=== PATIENT | female | born 1985 | race Caucasian/White ===

== ENCOUNTER 2017-10-24 10:09 | Emergency (ER) | payer MEDICAID, SELFPAY ==
[2017-10-24 10:19] VITALS: BP 117/67; PULSE 74; RESP 16; TEMP 36.9; O2SAT 99
[2017-10-24] MEDS: Amoxicillin 875/Clav. 125 TAB PO (10:41)
--- NOTE | 2017-10-24 10:43 | ED.GENADUL_ITS ---
Disposition Clinical Impression: Otitis media of left ear with spontaneous rupture of tympanic membrane Disposition: HOME Instructions: Otitis Media (ED) Additional Instructions: Please take antibiotic as prescribed. Please take ibuprofen 600 mg by mouth every 6-8 hours as needed for pain for the next few days. Please follow-up with your primary care physician and Ear, Nose and Throat. Return to the emergency department immediately for any worsening or new concerning symptoms. Prescriptions: Amoxicillin 875/Clav. 125 [Augmentin 875-125 Tablet] 1 each PO BID #19 tab Referrals: Mary Jo MD [Primary Care Provider] - Hank Borrego MD [ [facility] STAFF PHYSICIAN] - Medical Decision Making - Medical Decision Making 32-year-old female here with left otitis media with suspected perforation. Plan to treat with Augmentin. Patient has allergy to Keflex listed and she notes that she is not actually allergic to Keflex and has tolerated it well. Advised patient to follow-up with ear nose and throat. History of Present Illness - General Chief complaint: EarProblem Stated complaint: UNKNOWN Time Seen by Provider: 10/24/17 10:19 Source: patient, RN notes reviewed Mode of arrival: ambulatory Limitations: no limitations - History of Present Illness Initial comments: 32-year-old female presents with chief complaint of ear pain. Pain is localized to the left ear. Patient notes that she had about a week of ear pressure and discomfort. There is in a brief period of improvement and then subsequently over the past 5 days she has had increasing pain and also ear discharge. Discharge is brown. She has some associated itching in the ear. Pain is now moderate. Persistent. No associated fever or sore throat. Patient has been swimming intermittently the summer and [place]. - Related Data Promethazine HCl 25 mg PO Q8H PRN #30 tab 12/14/16 Ibuprofen [Ibuprofen Ib] 800 mg PO PRN PRN 04/21/17 Trazodone HCl 50 - 100 mg PO HS #60 tab-cap 08/28/17 Sertraline HCl 50 mg PO DAILY #90 tab-cap 10/02/17 Amoxicillin 875/Clav. 125 [Augmentin 875-125 Tablet] 1 each PO BID #19 tab 10/24 Allergies Allergy/AdvReac Type Severity Reaction Status Date / Time vancomycin Allergy Severe diarrhea, Unverified 10/02/17 16:01 redness cephalexin [Cephalexin] AdvReac Severe Abdominal Unverified 10/02/17 16:01 Cramps sulfamethoxazole AdvReac Severe Nausea and Unverified 10/02/17 16:01 [From Bactrim] vomiting trimethoprim [From Bactrim] AdvReac Severe Nausea and Unverified 10/02/17 16:01 vomiting Cephalosporins AdvReac Intermediate Diarrhea Unverified 10/02/17 16:01 codeine phosphate AdvReac Intermediate Vomiting Unverified 10/02/17 16:01 [From Tylenol-Codeine #3] ketorolac AdvReac Intermediate Cramping/vo Unverified 10/02/17 16:01 mitting oxycodone AdvReac Intermediate Nausea/vomi Unverified 10/02/17 16:01 tting tramadol AdvReac Unverified 10/02/17 16:01 Review of Systems Constitutional: denies: chills, fever ENT: ear pain (left). 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 Absent: conjunctival injection, periorbital swelling - ENT ENT exam: Present: normal orophraynx, mucous membranes moist, other (Right TM normal; left TM bulging, erythematous, question small healing perforation, external ear normal) - Neck Neck exam: Absent: lymphadenopathy - Respiratory Respiratory exam: Absent: respiratory distress - Neurological Exam Neurological exam: Present: alert. Absent: altered - Skin Skin exam: Present: warm, dry, intact Course Vital Signs - 24 hr 10/24/17 10:19 Temperature 36.9 C Pulse 74 Respiratory 16 Rate Blood Pressure 117/67 Pulse Oximetry 99
== END 2017-10-24 10:54 | disposition home or self-care (01) ==
PROVIDERS: Emergency Provider Student in an Organized Health Care Education/Training Program; PCP Internal Medicine
DX: H66.92 Otitis media, unspecified, left ear (principal); H72.02 Central perforation of tympanic membrane, left ear
CPT/HCPCS: 99283

== ENCOUNTER 2017-10-28 17:59 | Emergency (ER) | payer MEDICAID, SELFPAY ==
[2017-10-28 18:22] VITALS: BP 123/75; PULSE 74; RESP 16; TEMP 36.6; O2SAT 98
--- NOTE | 2017-10-28 19:00 | DI.RPTCT_ITS ---
SYMPTOMS/DIAGNOSIS: CONCERN FOR MASTOIDITIS MAXILLOFACIAL CT: The sinuses and mastoid air cells are clear throughout. There is soft tissue thickening of the external auditory canal to the level of the tympanic membrane. A small amount of soft tissue thickening is seen along the lateral margin of the left middle ear and Prussak's space. No bony erosion is seen. IMPRESSION: Left external otitis. A small amount of soft tissue thickening is seen of Prussak's space and along the lateral margin of the left middle ear ossicles and tympanic membrane.
--- NOTE | 2017-10-28 19:03 | ED.GENADUL_ITS ---
Disposition Clinical Impression: Otitis externa Disposition: HOME Condition: Fair Instructions: Otitis Externa (ED) Additional Instructions: Encourage hydration. Tylenol and/or ibuprofen as needed for discomfort. Continue with Augmentin. Take Ciprodex as prescribed. Even if symptoms are improving please take the entire course. Keep appointment with primary care on Monday for reevaluation. Please ensure follow-up with ENT. If you develop fevers, increased pain, spreading of pain, visual changes, neck pain or other new/worsening symptoms please seek care urgently once again. Referrals: Mary Jo MD [Primary Care Provider] - Medical Decision Making - Lab Data Laboratory Tests 10/28/17 10/28/17 19:20 19:20 WBC 10.37 RBC 4.34 Hgb 14.3 Hct 41.4 MCV 95.4 H MCH 32.9 MCHC 34.5 RDW 12.2 Plt Count 185 MPV 10.7 Immature Gran % 0.4 Neutrophils % 66.0 Lymphocytes % 23.2 Monocytes % 8.2 Eosinophils % 1.7 Basophils % 0.5 Absolute Neutrophils 6.84 H Absolute Lymphocytes 2.41 Absolute Monocytes 0.85 H Absolute Eosinophils 0.18 Absolute Basophils 0.05 Sodium 141 Potassium 3.8 Chloride 106 Carbon Dioxide 26.6 Anion Gap 8.4 BUN 11 Creatinine 0.57 Estimated GFR/1.73 m2 >= 60.00 Glucose 89 Calcium 8.2 L Total Bilirubin 0.2 AST 9 L ALT 18 Alkaline Phosphatase 88 Total Protein 7.0 Albumin 3.6 Results reviewed for labs ordered during visit: Yes - Radiology Data Radiology results: report reviewed CT reviewed by radiologist. No fracture dislocation noted. Soft tissues are unremarkable. Orbits are unremarkable. No acute findings of the sinuses. No mucosal thickening or fluid. Incidental hypoplastic nonimmunized right frontal sinus. Left otitis externa. Soft tissue thickening of the left tympanic membrane and an Prussak's space along the lateral margin of the left middle ear ossicles. No evidence of bony erosion. No discrete middle ear or mastoid effusion. - Medical Decision Making Patient presents today with chief complaint of left ear pain. On exam, I am concerned that she developed what appears to be an otitis externa with swelling , erythema or discharge in the external canal. Patient does have soft tissue swelling and cervical lymphadenopathy. She is point tender over the mastoid. She appears nontoxic. She currently afebrile, vital signs within normal limits. I am concern for possible mastoiditis given the onset of fevers and mastoid tenderness. We will obtain CT to evaluate. Discussed this plan with the patient is in agreement. Laboratory evaluation without significant abnormality. No leukocytosis. CT reviewed by radiologist. Findings are consistent with otitis externa. No evidence of mastoiditis or progression of infection elsewhere. Discussed findings with the patient. She will be treated with Ciprodex drops. Advised she should finish her course of Augmentin. Ciprodex drops were instilled here and bottle given to the patient. She has upcoming appointment with primary care. Advised she keep this as well as ENT follow-up. We discussed new/worsening symptoms when to seek care urgently once again. Advised she continue with Tylenol and/or ibuprofen as needed for discomfort. All of her questions and concerns were addressed and she is in agreement with this plan. History of Present Illness - General Chief complaint: EarProblem Stated complaint: EAR INFECTION Time Seen by Provider: 10/28/17 18:01 Source: patient, family, RN notes reviewed Mode of arrival: ambulatory Limitations: no limitations - History of Present Illness Initial comments: Patient is a 32-year-old female presenting today with chief complaint of left ear pain. Patient was here 5 days ago and was diagnosed with otitis media with concern for tympanic membrane rupture. She was placed on oral Augmentin. Patient reports she is taking this regularly. Despite taking this she reports that her pain is progressively been increasing. States that the pain and swelling is now circumferential about the ear. She is endorsing mastoid tenderness. No pain in the neck. No headache. Denies visual change. No sore throat. No difficulty swallowing. Patient reports LMP 1 week ago. - Related Data Promethazine HCl 25 mg PO Q8H PRN #30 tab 12/14/16 Ibuprofen [Ibuprofen Ib] 800 mg PO PRN PRN 04/21/17 Trazodone HCl 50 - 100 mg PO HS #60 tab-cap 08/28/17 Sertraline HCl 50 mg PO DAILY #90 tab-cap 10/02/17 Amoxicillin 875/Clav. 125 [Augmentin 875-125 Tablet] 1 each PO BID #19 tab 10/24 Allergies Allergy/AdvReac Type Severity Reaction Status Date / Time vancomycin Allergy Severe diarrhea, Unverified 10/28/17 18:25 redness cephalexin [Cephalexin] AdvReac Severe Abdominal Unverified 10/28/17 18:25 Cramps sulfamethoxazole AdvReac Severe Nausea and Unverified 10/28/17 18:25 [From Bactrim] vomiting trimethoprim [From Bactrim] AdvReac Severe Nausea and Unverified 10/28/17 18:25 vomiting Cephalosporins AdvReac Intermediate Diarrhea Unverified 10/28/17 18:25 codeine phosphate AdvReac Intermediate Vomiting Unverified 10/28/17 18:25 [From Tylenol-Codeine #3] ketorolac AdvReac Intermediate Cramping/vo Unverified 10/28/17 18:25 mitting oxycodone AdvReac Intermediate Nausea/vomi Unverified 10/28/17 18:25 tting tramadol AdvReac Unverified 10/28/17 18:25 Review of Systems Constitutional: see HPI ENT: as per HPI Respiratory: no symptoms reported Gastrointestinal: denies: nausea, vomiting Skin: as per HPI Neurological: as per HPI Past Medical History - Past Medical History Medical history: no medical history kidney stones, lymphedema, endometriosis Surgical history: cholecystectomy, other (endometriosis, kidney stone removal, ) 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 Absent: scleral icterus, conjunctival injection - ENT ENT exam: Present: normal orophraynx, mucous membranes moist. Absent: normal exam, TM's normal bilaterally (Unable to visualize left tympanic membrane secondary to canal swelling. External canal is erythematous, swollen thick white exudate. Patient does have mastoid tenderness. She is noted to have swelling circumferentially about the ear. The skin is not erythematous outside of the canal. It is not warm to the touch.) - Neck Neck exam: Present: tenderness, full ROM, lymphadenopathy. Absent: meningismus - Respiratory Respiratory exam: Present: normal lung sounds bilaterally. Absent: respiratory distress - Cardiovascular Cardiovascular Exam: Present: regular rate, normal rhythm, normal heart sounds - Neurological Exam Neurological exam: Present: alert, normal gait - Psychiatric Psychiatric exam: Present: flat affect - Skin Skin exam: Present: warm, dry, intact, normal color (As above) Course Vital Signs - 24 hr 10/28/17 18:22 Temperature 36.6 C Pulse 74 Respiratory 16 Rate Blood Pressure 123/75 Pulse Oximetry 98
[2017-10-28 20:04] LABS: Abs Immature Grans 0.04 k/cumm (0.0-0.09); Absolute Basophil Count 0.05 k/cumm (0.0-0.2); Absolute Eosinophil Count 0.18 k/cumm (0.0-0.7); Absolute Lymphocyte Count 2.41 k/cumm (1.2-3.4); Absolute Monocyte Count 0.85 k/cumm (0.11-0.7); Absolute Neutrophil Count 6.84 k/cumm (1.2-6.7); Basophils % 0.5; Eosinophils % 1.7; HCT 41.4 % (36.0-46.0); HGB 14.3 g/dL (12.0-15.5); Immature Grans % 0.4; Lymphocytes % 23.2; Mean Corp. HGB Concentration 34.5 g/dL (32.0-36.0); Mean Corpuscular Hemoglobin 32.9 pg (27.0-33.0); Mean Corpuscular Volume 95.4 fL (80-95); Mean Platelet Volume 10.7 fL (8.0-11.0); Monocytes % 8.2; Platelet Count 185 x1000/uL (130-400); RBC 4.34 m/cumm (4.00-5.20); RBC Distribution Width 12.2 % (11.7-14.6); White Blood Cell Count 10.37 k/cumm (4.4-10.8)
[2017-10-28 20:09] LABS: ALT 18 U/L (12-78); AST 9 U/L (15-37); Albumin 3.6 g/dL (3.4-5.0); Alkaline Phosphatase 88 U/L (46-116); Anion Gap 8.4 mmol/L (3-11); BUN 11 mg/dL (7-18); Bilirubin, Total 0.2 mg/dL (0.2-1.0); CO2 26.6 mmol/L (21.0-32.0); CREATININE 0.57 mg/dL (0.55-1.02); Calcium 8.2 mg/dL (8.5-10.1); Chloride 106 mmol/L (98-107); Glucose 89 mg/dL (70-100); Potassium 3.8 mmol/L (3.5-5.1); Sodium 141 mmol/L (136-145)
[2017-10-28] MEDS: Omnipaque 350 MG/ML 100 ML BTL IJ (20:12)
[2017-10-28] MEDS: Lactated Ringers 1,000 ML 1000 ML IV (20:30)
[2017-10-28] MEDS: Acetaminophen 500 MG TAB 1000 MG PO (20:38)
--- NOTE | 2017-10-28 21:17 | DI.VRAD_ITS ---
EXAM: CT Maxillofacial With Intravenous Contrast CLINICAL HISTORY: 32 years old, female; Pain; Face pain and other: Ear ache TECHNIQUE: Axial computed tomography images of the face with intravenous contrast. Coronal reformatted images were created and reviewed. COMPARISON: No relevant prior studies available. FINDINGS: Bones/joints: No fracture or dislocation.. Soft tissues: Unremarkable. Orbits: Unremarkable. Sinuses: No acute findings. No mucosal thickening or fluid. Incidental hypoplastic non-pneumatized right frontal sinus. Auditory system: Left external otitis. Soft tissue thickening of the left tympanic membrane and in Prussak's space along the lateral margin of the left middle ear ossicles. No evidence of bony erosion. No discrete middle ear or mastoid fluid. IMPRESSION: 1. Left external otitis. 2. Soft tissue thickening of the left tympanic membrane and in Prussak's space along the lateral margin of the left middle ear ossicles. No evidence of bony erosion. Dictated and Authenticated by: Gema Lee MD. Ordering:FEI CANO MD
[2017-10-28] MEDS: Ciprofloxacin/Dexameth. 7.5 ML BTL 1 ML AS (21:45)
[2017-10-29 01:42] VITALS: BP 123/75; PULSE 74; RESP 16; O2SAT 98
== END 2017-10-28 22:03 | disposition home or self-care (01) ==
PROVIDERS: Physician Assistant; Emergency Provider Emergency Medicine; PCP Internal Medicine
DX: H60.92 Unspecified otitis externa, left ear (principal); R50.9 Fever, unspecified
CPT/HCPCS: 80053; 81025; 96360; 99285; 70487; 85025; 99284; J3490

== ENCOUNTER 2017-11-26 19:05 | Emergency (ER) | payer MEDICAID, SELFPAY ==
[2017-11-26 19:13] VITALS: BP 136/66; PULSE 84; RESP 18; TEMP 36.9; O2SAT 99
--- NOTE | 2017-11-26 19:33 | DI.CT_ITS ---
SYMPTOM/DIAGNOSIS: RLQ PAIN CT ABDOMEN AND PELVIS: Comparison is made with noncontrast exam dated 28 August 2017. Images were performed from the lower chest through the ischial tuberosities after IV contrast. The lung bases are clear. The liver shows mild fatty infiltration. The spleen, pancreas, adrenals and kidneys are unremarkable. The appendix appears normal. There is no bowel dilatation or wall thickening. The kidneys and bladder as well as uterus are unremarkable. There is a small amount of fluid in the cul de sac. Follicles are noted on the left ovary. IMPRESSION: Small amount of free fluid in the cu de sac, likely physiologic. Status post cholecystectomy. Mild fatty infiltration of the liver.
[2017-11-26 19:46] LABS: Abs Immature Grans 0.02 k/cumm (0.0-0.09); Absolute Basophil Count 0.03 k/cumm (0.0-0.2); Absolute Eosinophil Count 0.15 k/cumm (0.0-0.7); Absolute Monocyte Count 0.48 k/cumm (0.11-0.7); Absolute Neutrophil Count 3.77 k/cumm (1.2-6.7); Basophils % 0.4; Eosinophils % 2.2; HCT 40.4 % (36.0-46.0); HGB 13.8 g/dL (12.0-15.5); Immature Grans % 0.3; Lymphocytes % 34.1; Mean Corp. HGB Concentration 34.2 g/dL (32.0-36.0); Mean Corpuscular Hemoglobin 32.7 pg (27.0-33.0); Mean Corpuscular Volume 95.7 fL (80-95); Mean Platelet Volume 10.3 fL (8.0-11.0); Monocytes % 7.1; Neutrophils % 55.9; Platelet Count 154 x1000/uL (130-400); RBC 4.22 m/cumm (4.00-5.20); White Blood Cell Count 6.75 k/cumm (4.4-10.8)
--- NOTE | 2017-11-26 19:49 | ED.GENADUL_ITS ---
Discharge Plan Disposition Patient Disposition: HOME Condition: Fair Discharge Details Chief Complaint: Abd Prob Clinical Impression: Abdominal pain Reason For Visit: abd Primary Care Provider: Mary Jo ED Provider: Cindi Brothers Home Meds and New Rx's Prescriptions: Continue promethazine 25 MG tablet 25 mg PO Q8H PRNQty: 30 RF: 0 trazodone 100 MG tablet 50 - 100 mg PO HS Qty: 60 RF: 1 sertraline 50 MG tablet 50 mg PO DAILY Qty: 90 RF: 11 fluticasone furoate [Flonase Sensimist] 9.9 ML spray,suspension 9.9 ml NU BID Qty: 1 RF: 0 Ibuprofen [Ibuprofen Ib] 200 MG Tablet 800 mg PO PRN PRNRF: 0 naproxen sodium [Aleve] 220 mg Capsule 1 tab PO RF: 0 Discharge Instructions Instructions: Abdominal Pain (ED) Additional Instructions: Encourage hydration. Tylenol and/or Motrin as needed for discomfort. Please contact primary care tomorrow to schedule appointment within the next few weeks. If you develop fevers/chills, increased pain, vomiting, inability to stay hydrated or other new/worsening symptoms please seek care urgently once again. Please keep journal of your symptoms. Referrals: Mary Jo MD [Primary Care Provider] - Medical Decision Making MDM Narrative Medical decision making narrative: Patient presents today with chief complaint of periumbilical nerve quadrant pain ?3 days. She reports the pain has progressively been increasing. Patient is status post cholecystectomy. On exam , no peritoneal findings are noted. She is fairly diffuse discomfort is worse in the periumbilical and right lower quadrant pain. She is afebrile, vital signs are within normal limits. Patient is endorsing nausea and pain currently. We will treat her pain and give antiemetic. We will obtain baseline labs and CT. I am concerned for possible appendicitis. We will obtain a UPT. Last menses was 2 weeks ago. I have low suspicion for ectopic given this timeline, however we will obtain a test. Her pain does not seem to be consistent with ovarian torsion given the longevity of her symptoms and that her pain to be severe. It has not waxed and waned to suggest a torsion detorsion event. She reports it has been constant. Worse with food this afternoon. Is also endorsing 3 loose bowel movements today. Will obtain urinalysis and she also endorsing some UTI-like symptoms today Laboratory evaluation without significant abnormality. No leukocytosis. Lipase is normal. Urinalysis without findings to suggest urinary tract infection We did have a delay in obtaining a CT scan secondary to acute patients in the department CT reviewed by radiologist. Advised diffuse decreased hepatic parenchymal density consistent with fatty infiltration. Patient is status post cholecystectomy. Mild compensatory bile duct distention noted. No ductal dilation of the pancreas. Spleen is normal no splenomegaly. Adrenals are normal with no mass. Kidneys and ureters are normal with no hydronephrosis. Stomach is normal, no obstruction or mucosal thickening. The appendix is normal. Bladder is unremarkable as visualized. Productive significant for apparent corpus luteum cyst noted in the left adnexa. Uterus and adnexal structures are otherwise unremarkable. Small amount of nonspecific simple appearing fluid is noted in the office cul-de-sac, likely physiologic. No free air. No acute fractures. There is a fat-containing umbilical hernia. Her remaining extra-abdominal soft tissues are unremarkable. Vasculature is normal , no abdominal aortic aneurysm. Discussed these findings with the patient and her significant other. Advised that at this point her findings are not suggestive of appendicitis. I do not see evidence of reproductive source. And again, her symptoms are not consistent with ovarian torsion. Patient has been resting comfortably while here, chatting with her significant other and on her following. She does not appear to be in any acute distress. Again, no peritoneal findings. Patient does have history of endometriosis. Is 2 weeks into her cycle at this time. Advised this may be recurrence of her symptoms and advised she keep a journal of her symptoms. Encourage hydration. Advised Tylenol and/or ibuprofen as needed for discomfort. She was given strict return precautions. She will contact her primary care tomorrow to schedule follow-up appointment with the next few days. All of her questions and concerns were addressed and she is in agreement with this plan. HPI - General Adult General Mode of arrival: ambulatory . Date/Time Provider Initiated Documentation: 11/26/17 19:15 . Limitations to Documentation: no limitations . Information obtained by: patient and family . HPI Narrative: Patient is a 32-year-old female, accompanied by her , with chief complaint of right lower quadrant pain. She reports the pain initially began 3 days ago and is progressively increase. She is endorsing nausea but no vomiting. Reports that she has had 3 loose bowel movements today. Denies any blood in her stool. States she is also having dysuria and increased frequency. Reports it is quite similar to when she has had UTI in the past. Reports she had a UTI last year. States that the right lower pain is worse with movement. Reports that this afternoon the pain increased after eating. However, she reports that typically she does not have increased pain postprandially. she denies any fevers or chills. Is status post cholecystectomy. LMP 2 weeks ago Related Data Home Medications Medication Instructions Recorded Confirmed Ibuprofen [Ibuprofen Ib] 800 mg PO PRN PRN 04/21/17 10/28/17 naproxen sodium [Aleve] 1 tab PO 11/26/17 Allergies Allergy/AdvReac Type Severity Reaction Status Date / Time vancomycin Allergy Severe diarrhea, Unverified 11/13/17 08:46 redness cephalexin [Cephalexin] AdvReac Severe Abdominal Unverified 11/13/17 08:46 Cramps sulfamethoxazole AdvReac Severe Nausea and Unverified 11/13/17 08:46 [From Bactrim] vomiting trimethoprim [From Bactrim] AdvReac Severe Nausea and Unverified 11/13/17 08:46 vomiting Cephalosporins AdvReac Intermediate Diarrhea Unverified 11/13/17 08:46 codeine phosphate AdvReac Intermediate Vomiting Unverified 11/13/17 08:46 [From Tylenol-Codeine #3] ketorolac AdvReac Intermediate Cramping/vo Unverified 11/13/17 08:46 mitting oxycodone AdvReac Intermediate Nausea/vomi Unverified 11/13/17 08:46 tting tramadol AdvReac Unverified 11/13/17 08:46 General Stated Complaint: Abd Prob HALINA: 3 Review of Systems Constitutional Reports as per HPI, Denies chills, Denies difficulty sleeping, Denies fever(s), Denies headache(s) and Denies poor appetite ENT Reports dysphagia and Denies headache(s) Cardiovascular Denies chest pain, Denies chest pain at rest, Denies dyspnea and Denies dyspnea on exertion Respiratory Denies pain on inspiration, Denies dyspnea and Denies dyspnea on exertion Gastrointestinal Reports as per HPI, Reports abdominal pain, Denies cramping, Reports dysphagia, Reports nausea and Denies vomiting Genitourinary Reports as per HPI, Reports urinary frequency, Denies flank pain, Denies urinary incontinence, Reports urinary urgency and Denies vaginal discharge Musculoskeletal Denies back pain Integumentary/Breasts Reports system reviewed and no additional complaints, except as docu Neurologic Denies headache(s) PFSH Family History Mother Diabetes Heart disease Hyperlipidemia Father Colon cancer Heart disease Hyperlipidemia Sister Hyperlipidemia Grandfather Diabetes Grandfather Diabetes Hyperlipidemia Asthma Grandmother Diabetes Personal history of malignant neoplasm Heart disease Hyperlipidemia Grandmother No problems noted. Medical History Anemia Anxiety BMI 32.0-32.9,adult Depression Endometriosis of pelvis (~2009) Hepatic steatosis Hepatomegaly Kidney stones Lymphedema Patellofemoral dysfunction of left knee Vitamin D deficiency Vulvodynia Social History Smoking/Tobacco Use Status: Former Tobacco Use Surgical History Cholecystectomy (12/28/16) Diagnostic Laproscopy (03/03/10) EGD - MAC Extracorporeal shock wave lithotripsy wisdom teeth extraction Exam Const General: cooperative, healthy appearing, comfortable, no acute distress, well developed and well groomed Nutritional Appearance: average body habitus and well nourished Orientation: alert and awake Resp Effort & Inspection: normal respiratory effort, able to speak in complete sentences and no respiratory distress Auscultation: clear to auscultation bilaterally Cardio Rate: regular rate Rhythm: regular rhythm Heart Sounds: S1 normal and S2 normal GI Inspection: normal to inspection, no abdominal wall ecchymosis, no edema, non- distended and no incisions Palpation: soft, no hepatosplenomegaly, not firm, no guarding, no masses, no pulsatile masses, not rigid, tender (periumbilical and RLQ pain with palpation. No peritoneal findings) in the epigastrum, in the RLQ, at McBurney's point and periumbilically; Tapia's sign negative, obturator sign negative, psoas sign negative and with no rebound tenderness and No ascites Percussion: normal to percussion Auscultation: normal bowel sounds Back/Spine/Pelvis Back: no CVA tenderness Skin General skin exam: no rashes or lesions noted Lesions: no lesions Rashes: no rashes Neuro General: alert and awake Cognition: normal cognition Speech: speech normal Gait: normal gait Motor: muscle tone normal throughout Psych Appearance: grossly normal and well kempt Mental Status: mental status grossly normal Speech and Movement: speech and movement normal Mood: congruent mood Course Vital Signs Temperature 36.9 C 11/26/17 19:13 Pulse 84 11/26/17 19:13 Respiratory Rate 18 11/26/17 19:13 Blood Pressure 136/66 11/26/17 19:13 Pulse Oximetry 99 11/26/17 19:13 Temperature 36.9 C 11/26/17 19:13 Pulse 84 11/26/17 19:13 Respiratory Rate 18 11/26/17 19:13 Blood Pressure 136/66 11/26/17 19:13 Pulse Oximetry 99 11/26/17 19:13
[2017-11-26 20:01] LABS: ALT 20 U/L (12-78); AST 10 U/L (15-37); Albumin 3.7 g/dL (3.4-5.0); Alkaline Phosphatase 86 U/L (46-116); Anion Gap 9.1 mmol/L (3-11); BUN 8 mg/dL (7-18); Bilirubin, Total 0.2 mg/dL (0.2-1.0); CO2 27.9 mmol/L (21.0-32.0); CREATININE 0.65 mg/dL (0.55-1.02); Calcium 8.2 mg/dL (8.5-10.1); Chloride 105 mmol/L (98-107); Glucose 68 mg/dL (70-100); Lipase 114 U/L (73-393); Potassium 3.3 mmol/L (3.5-5.1); Sodium 142 mmol/L (136-145); Total Protein 7.1 g/dL (6.4-8.2)
[2017-11-26 20:11] LABS: Bilirubin Negative (Negative); Blood Trace-intact (Negative); Clarity Clear; Glucose Negative (Negative); Ketones Negative (Negative); Leukocyte Esterase Negative (Negative); Nitrite Negative (Negative); Specific Gravity 1.015 (1.005-1.025); Urobilinogen 0.2 EU/dL (Up TO 0.2)
[2017-11-26] MEDS: HYDROmorphone 2 MG/ML VIAL 1 MG IVP ×2 (20:11→21:10)
[2017-11-26] MEDS: Normal Saline 1,000 ML 1000 ML IV (20:14)
[2017-11-26] MEDS: Ondansetron 4 MG/2 ML VIAL IVP (20:15)
[2017-11-26 20:20] LABS: Bacteria Few HPF (Negative); C & S Indicated? No; Casts Negative LPF (Negative); Crystals Negative HPF (Negative); Epithelial Cells Moderate HPF (Negative); Mucus Trace (Negative); WBC 0-2 HPF (0-5)
[2017-11-26 21:09] VITALS: BP 121/56; PULSE 76; RESP 16; TEMP 37.1; O2SAT 95
[2017-11-26] MEDS: Omnipaque 350 MG/ML 100 ML BTL IJ (21:59)
[2017-11-26 22:50] VITALS: BP 120/60; PULSE 66; RESP 16; TEMP 37; O2SAT 97
--- NOTE | 2017-11-26 22:54 | DI.VRAD_ITS ---
EXAM: CT Abdomen and Pelvis With Intravenous Contrast EXAM DATE/TIME: 11/26/2017 7:36 PM CLINICAL HISTORY: 32 years old, female; Pain; Other: Rlq TECHNIQUE: Axial computed tomography images of the abdomen and pelvis with intravenous contrast. All CT scans at this facility use at least one of these dose optimization techniques: automated exposure control; mA and/or kV adjustment per patient size (includes targeted exams where dose is matched to clinical indication); or iterative reconstruction. Coronal and sagittal reformatted images were created and reviewed. CONTRAST: 100 ml of OMNIPAQUE 350 administered intravenously. COMPARISON: CT - ABD PELVIS WITH CONTRAST 06/06/2017 4:19 PM FINDINGS: Lower thorax: Mild atelectasis is present in the lung bases. No focal consolidation. ABDOMEN: Liver: There is a diffuse decrease in hepatic parenchymal density, consistent with fatty infiltration. Gallbladder and bile ducts: There has been a cholecystectomy. Mild compensatory biliary ductal distention noted. Pancreas: Normal. No ductal dilation. Spleen: Normal. No splenomegaly. Adrenals: Normal. No mass. Kidneys and ureters: Normal. No hydronephrosis. Stomach and bowel: Normal. No obstruction. No mucosal thickening. Appendix: The appendix is normal. PELVIS: Bladder: Unremarkable as visualized. Reproductive: Apparent corpus luteum cyst noted in the left adnexa. Uterus and adnexal structures are otherwise unremarkable. ABDOMEN and PELVIS: Intraperitoneal space: Small amount of nonspecific simple appearing free fluid is noted in the pelvic cul-de-sac, likely physiologic. No free air. Bones/joints: There is transitional lumbosacral anatomy with attempted lumbarization of S1, rudimentary disc at S1-S2, and pseudoarticulation between the right S1 transverse process and sacral ala. No acute fractures are seen. Soft tissues: There is a fat-containing umbilical hernia. Remaining extra-abdominal soft tissues are unremarkable. Vasculature: Normal. No abdominal aortic aneurysm. Lymph nodes: Normal. No enlarged lymph nodes. IMPRESSION: 1. No evidence of appendicitis or other acute intra-abdominal process. 2. Tiny amount of simple appearing free fluid in the pelvic cul-de-sac, likely physiologic. 3. Mild hepatic steatosis. Dictated and Authenticated by: Dariusz Shane MD. Ordering:FEI CANO MD
== END 2017-11-26 23:12 | disposition home or self-care (01) ==
PROVIDERS: Emergency Provider Physician Assistant; Family Provider Internal Medicine; PCP Internal Medicine
DX: R10.31 Right lower quadrant pain (principal); R11.0 Nausea
CPT/HCPCS: 36415; 80053; 81025; 83690; 96361; 96374; 96375; 96376; 99285; 74177; 81003; 81015; 85025; 99284; J2405; J3490

== ENCOUNTER 2018-03-04 21:55 | Emergency (ER) | payer MEDICAID, SELFPAY ==
[2018-03-04 22:04] VITALS: BP 145/89; PULSE 89; RESP 16; TEMP 36.8; O2SAT 98
--- NOTE | 2018-03-04 22:19 | W.ED.GENAD ---
Discharge Plan Disposition Patient Disposition: HOME Condition: Good Discharge Details Chief Complaint: Abd Prob Clinical Impression: Bacterial vaginosis, Candidiasis of vagina, Abdominal pain, left lower quadrant Primary Care Provider: Mary Jo ED Provider: Moises Skinner Home Meds and New Rx's Prescriptions: New metronidazole [Flagyl] 500 mg tablet 500 mg PO BID Qty: 14 RF: 0 clotrimazole 2 % cream 1 appful VG ONCE 3 Days Qty: 21 RF: 0 No Action promethazine 25 MG tablet 25 mg PO Q8H PRNQty: 30 RF: 0 sertraline 50 MG tablet 50 mg PO DAILY Qty: 90 RF: 11 fluticasone furoate [Flonase Sensimist] 9.9 ML spray,suspension 9.9 ml NU BID Qty: 1 RF: 0 trazodone 100 mg tablet 50 - 100 mg PO HS Qty: 60 RF: 1 Ibuprofen [Ibuprofen Ib] 200 MG Tablet 800 mg PO PRN PRNRF: 0 naproxen sodium [Aleve] 220 mg Capsule 1 tab PO RF: 0 Discharge Instructions Instructions: Bacterial Vaginosis (ED), Vulvovaginal Candidiasis (ED), Pelvic Pain (ED) Additional Instructions: Please take medications as directed. Please do not take it with any alcohol as this could cause a very bad reaction. Please follow-up with your obstetrics public health service officer within the next 48 hours. If you notice any worsening of your symptoms, or any new symptoms such as vomiting, diarrhea, fever, chills, shortness of breath, chest pain, numbness, weakness, or fainting , please return immediately to the emergency department for reevaluation. Please follow up with your primary care provider as soon as possible for reassessment and reevaluation. As always, it was a pleasure participating in your medical care today. Referrals: Mary Jo MD [Primary Care Provider] - Medical Decision Making This is a 32-year-old female who presents today for evaluation of left lower quadrant abdominal pain. It occurred at 4 PM, and has been constant but has notably worsened over the last 2 hours. It is constant in nature with no on and off symptoms. She describes it as an achy-like sensation. Physical exam demonstrates mild tenderness in the left lower quadrant and left pelvic region. She has had noted no vaginal discharge, she is currently not . She has a history of notable endometriosis with 2 episodes of surgery for correction of this as well as a cholecystectomy. Patient's current clinical symptomatology appears inconsistent with ovarian torsion, however recurrence of her endometriosis, ovarian cyst, tubo-ovarian abscess, diverticulitis is on the differential. Ultrasound is currently unavailable. We will get a CT scan with contrast to evaluate for any acute process the patient's left lower quadrant. We will treat with pain, rehydrate, and reassess. 12:13 AM Patient's laboratory workup has returned and demonstrates no significant findings. No evidence of leukocytosis or bandemia, no renal abnormalities, no signs of significant urinary tract infection. Bacterial vaginosis screen was positive for Sandra and Gardnerella. CT scan was performed and demonstrates no evidence of acute process, no evidence of pelvic abnormality, or other acute process. I did discuss the results of this personally with Dr. Acevedo. With the benign workup, no signs of an acute process, and the clinical exam and consistent with ovarian torsion I feel that she would benefit from treatment for her Sandra, and Gardnerella, with close follow-up with her obstetrics public health service officer. These may be the cause of her symptoms, however differential still does include potential return of her endometriosis. We have recommended close follow-up with her obstetrics public health service officer. We discussed red flags which to immediately return patient understands. I have extensively reviewed the treatment plan and discharge instructions with the patient and their family. I have addressed all patient concerns at this time. The patient and family was made aware of what symptoms to monitor for that would warrant a return to the emergency department. Discussed the plan with the patient and family, they demonstrate verbal understanding and agreement with our assessment and plan at this time. HPI General Date/Time Provider Initiated Documentation: 03/04/18 22:05. HPI Narrative: This is a 32-year-old female with a past medical history of endometriosis, 2 surgeries for this, cholecystectomy, kidney stone, who is a who presents today for evaluation of left lower quadrant pain. The patient states that at 4 PM she had onset of this pain, it gradually increased, and then roughly 1-2 hours ago there is a sudden notable worsening of the pain. It is constant in nature, it is not lapsing and or remitting. She describes it as an achy cramping-like sensation in the left lower quadrant. She has eaten today, she has had no vomiting but does admit to some mild loose stool. She did have some spotting vaginally 2 weeks ago, but denies any current vaginal discharge, spotting, dysuria, hematuria, hematochezia, melena or acholic stool. She denies any aggravating or modifying factors for her pain. She denies any other radiation of the pain. Patient denies any other complaints at this time. She denies any IV or illicit drug use. She denies any history of STDs. Related Data Home Medications Medication Instructions Recorded Confirmed promethazine 25 mg PO Q8H PRN #30 tab 12/14/16 Ibuprofen [Ibuprofen Ib] 800 mg PO PRN PRN 04/21/17 10/28/17 sertraline 50 mg PO DAILY #90 tab-cap 10/02/17 fluticasone furoate [Flonase 9.9 ml NU BID #1 bot 11/13/17 Sensimist] naproxen sodium [Aleve] 1 tab PO 11/26/17 trazodone 100 mg tablet 50 - 100 mg PO HS #60 tab-cap 12/21/17 clotrimazole 1 appful VG ONCE 3 Days #21 gm 03/05/18 metronidazole [Flagyl] 500 mg PO BID #14 tab 03/05/18 Previous Rx's Medication Instructions Recorded sertraline 50 mg PO DAILY #90 tab-cap 10/02/17 fluticasone furoate [Flonase 9.9 ml NU BID #1 bot 11/13/17 Sensimist] trazodone 100 mg tablet 50 - 100 mg PO HS #60 tab-cap 12/21/17 clotrimazole 1 appful VG ONCE 3 Days #21 gm 03/05/18 metronidazole [Flagyl] 500 mg PO BID #14 tab 03/05/18 Allergies Allergy/AdvReac Type Severity Reaction Status Date / Time vancomycin Allergy Severe diarrhea, Unverified 11/13/17 08:46 redness cephalexin [Cephalexin] AdvReac Severe Abdominal Unverified 11/13/17 08:46 Cramps sulfamethoxazole AdvReac Severe Nausea and Unverified 11/13/17 08:46 [From Bactrim] vomiting trimethoprim [From Bactrim] AdvReac Severe Nausea and Unverified 11/13/17 08:46 vomiting Cephalosporins AdvReac Intermediate Diarrhea Unverified 11/13/17 08:46 codeine phosphate AdvReac Intermediate Vomiting Unverified 11/13/17 08:46 [From Tylenol-Codeine #3] ketorolac AdvReac Intermediate Cramping/vo Unverified 11/13/17 08:46 mitting oxycodone AdvReac Intermediate Nausea/vomi Unverified 11/13/17 08:46 tting tramadol AdvReac Unverified 11/13/17 08:46 General Stated Complaint: Abd Prob HALINA: 3 Review of Systems Review of Systems All systems reviewed & are unremarkable except as noted in HPI and below PFSH Surgical History Cholecystectomy (12/28/16) Diagnostic Laproscopy (03/03/10) EGD - MAC Extracorporeal shock wave lithotripsy wisdom teeth extraction Social History Smoking/Tobacco Use Status: Former Tobacco Use Exam Narrative Exam Narrative: 1.Const: Well-nourished, Well-developed, appearing stated age 2.Eyes: PERRL, no conjunctival injection, and symmetrical lids. 3.ENT: Atraumatic external nose and ears. Moist MM. Neck: Symmetric, trachea midline, No thyromegaly. 4.CVS: +S1/S2, No murmurs or gallops. Peripheral pulses 2+ and equal in all extremities. Brisk capillary refill in all extremities. 5.RESP: Unlabored respiratory effort. Clear to auscultation bilaterally. No wheezes rales or rhonchi 6.GI: Soft, mild to moderate left lower quadrant/left sided pelvic tenderness. No CVA tenderness, negative obturator and psoas sign. No right lower quadrant or right-sided pelvic pain. 7.MSK: Normocephalic/Atraumatic, Extremities w/o deformity or ttp No cyanosis or clubbing, Normal movement of all extremities 8.Skin: Warm, Dry. No rashes or lesions. 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 Sensation grossly intact, no focal neurologic deficits. 10.Psych: (AAO) x3. Appropriate mood and affect Course Vital Signs Temperature 36.8 C 03/04/18 22:04 Pulse 89 03/04/18 22:04 Respiratory Rate 16 03/04/18 22:04 Blood Pressure 145/89 H 03/04/18 22:04 Pulse Oximetry 98 03/04/18 22:04 Temperature 36.8 C 03/04/18 22:04 Temperature Source Temporal Artery Scan 03/04/18 22:04 Pulse 89 03/04/18 22:04 Respiratory Rate 16 03/04/18 22:04 Respiratory Effort Non-Labored 03/04/18 22:07 Blood Pressure 145/89 H 03/04/18 22:04 Blood Pressure Position Sitting 03/04/18 22:04 Pulse Oximetry 98 03/04/18 22:04 Oxygen Delivery Method Room Air 03/04/18 22:04 Oxygen Flow Rate 0 03/04/18 22:04 Pain Level 10 03/04/18 22:16
[2018-03-04 22:35] LABS: Bilirubin Negative (Negative); Blood Trace-intact (Negative); Clarity Clear; Glucose Negative (Negative); Ketones Trace mg/dL (Negative); Leukocyte Esterase Negative (Negative); Nitrite Negative (Negative); Specific Gravity >= 1.030 (1.005-1.025); Urobilinogen 0.2 EU/dL (Up TO 0.2)
--- NOTE | 2018-03-04 22:36 | DI.CT_ITS ---
SYMPTOMS/DIAGNOSIS: LLQ PAIN, DIARRHEA CT SCAN OF THE ABDOMEN AND PELVIS: CT scan of the abdomen and pelvis was performed following the uneventful administration of intravenous contrast material. The visualized lung bases are clear. The liver, spleen, pancreas, bile ducts and adrenal glands are unremarkable. The patient is status post cholecystectomy. The kidneys, ureters and bladder are unremarkable as are the reproductive organs. No significant adenopathy, ascites or pneumoperitoneum is present. There is no evidence to suggest an acute appendicitis. The bowel shows no evidence of obstruction or inflammation. The aorta is of normal caliber. The bones are intact. IMPRESSION: No evidence of an acute abdomen.
[2018-03-04] MEDS: MORPHine 10 MG/ML VIAL 4 MG IVP (22:38)
[2018-03-04] MEDS: Normal Saline 1,000 ML 1000 ML IV (22:39)
[2018-03-04 22:42] LABS: Abs Immature Grans 0.02 k/cumm (0.0-0.09); Absolute Basophil Count 0.03 k/cumm (0.0-0.2); Absolute Eosinophil Count 0.15 k/cumm (0.0-0.7); Absolute Lymphocyte Count 2.47 k/cumm (1.2-3.4); Absolute Monocyte Count 0.58 k/cumm (0.11-0.7); Absolute Neutrophil Count 4.83 k/cumm (1.2-6.7); Basophils % 0.4; Eosinophils % 1.9; HGB 14.5 g/dL (12.0-15.5); Immature Grans % 0.2; Lymphocytes % 30.6; Mean Corp. HGB Concentration 35.4 g/dL (32.0-36.0); Mean Corpuscular Hemoglobin 33.5 pg (27.0-33.0); Mean Corpuscular Volume 94.7 fL (80-95); Monocytes % 7.2; Neutrophils % 59.7; Platelet Count 197 x1000/uL (130-400); RBC 4.33 m/cumm (4.00-5.20); RBC Distribution Width 11.9 % (11.7-14.6); White Blood Cell Count 8.08 k/cumm (4.4-10.8)
[2018-03-04 22:43] LABS: Epithelial Cells Many HPF (Negative); Other Cells Negative (Negative)
[2018-03-04 22:44] LABS: Bacteria Moderate HPF (Negative); C & S Indicated? No; Casts Negative LPF (Negative); Crystals Negative HPF (Negative); Mucus Moderate (Negative)
--- NOTE | 2018-03-04 22:50 | NUR.NOTE ---
Nursing Note: set up and assist pelvic exam.
[2018-03-04 22:55] LABS: ALT 29 U/L (12-78); AST 15 U/L (15-37); Albumin 3.6 g/dL (3.4-5.0); Alkaline Phosphatase 84 U/L (46-116); Anion Gap 7.2 mmol/L (3-11); BUN 7 mg/dL (7-18); Bilirubin, Total 0.2 mg/dL (0.2-1.0); CO2 28.8 mmol/L (21.0-32.0); CREATININE 0.64 mg/dL (0.55-1.02); Calcium 8.4 mg/dL (8.5-10.1); Chloride 105 mmol/L (98-107); Glucose 117 mg/dL (70-100); Lipase 85 U/L (73-393); Potassium 3.5 mmol/L (3.5-5.1); Sodium 141 mmol/L (136-145); Total Protein 6.6 g/dL (6.4-8.2)
[2018-03-04] MEDS: Ketorolac 30 MG/ML VIAL 15 MG IVP (23:17)
[2018-03-04 23:21] LABS: HCG Quant, Pregnancy < 1 mIU/mL (1-3)
[2018-03-04] MEDS: Omnipaque 350 MG/ML 100 ML BTL IJ (23:42)
--- NOTE | 2018-03-05 00:02 | DI.VRAD_ITS ---
EXAM: CT Abdomen and Pelvis With Contrast EXAM DATE/TIME: 03/04/2018 10:37 PM CLINICAL HISTORY: 32 years old, female; Pain and signs and symptoms; Other: Diarrhea; Other: Llq TECHNIQUE: Axial computed tomography images of the abdomen and pelvis with intravenous contrast. All CT scans at this facility use at least one of these dose optimization techniques: automated exposure control; mA and/or kV adjustment per patient size (includes targeted exams where dose is matched to clinical indication); or iterative reconstruction. Coronal and sagittal reformatted images were created and reviewed. CONTRAST: 100 ml of Omnipaque 350 administered intravenously. COMPARISON: CT Private^ROUTINE ABDOMEN PELVIS WITH CONTRAST (Adult) 11/26/2017 9:42 PM FINDINGS: Lower thorax: Unremarkable. ABDOMEN: Liver: No suspicious lesions. Gallbladder and bile ducts: Cholecystectomy. Pancreas: Unremarkable. No ductal dilation. Spleen: No suspicious lesions. Adrenals: Unremarkalbe. No suspicious mass. Kidneys and ureters: Unremarkable. No hydro. No suspicious lesions. Stomach and bowel: Unremarkable. No obstruction or inflammatory changes. Appendix: No evidence of appendicitis. PELVIS: Bladder: Unremarkable as visualized. Reproductive: Unremarkable as visualized. ABDOMEN and PELVIS: Intraperitoneal space: No free air. No significant fluid collection. Bones/joints: No acute fracture. No dislocation. Soft tissues: Unremarkable. Vasculature: Unremarkable. No acute findings Lymph nodes: Unremarkable. IMPRESSION: No acute findings. Dictated and Authenticated by: Darvin Acevedo MD. Ordering:LEONORA De Leon MD
[2018-03-05 00:30] VITALS: BP 131/76; PULSE 78; RESP 16; TEMP 36.8; O2SAT 98
[2018-03-06 13:15] LABS: Chlamydia Result Negative; GC Result Negative; Specimen Description CERVIX
== END 2018-03-05 00:29 | disposition home or self-care (01) ==
LOC: ER 03-05 00:32
PROVIDERS: Emergency Provider Student in an Organized Health Care Education/Training Program; PCP Internal Medicine
DX: N76.0 Acute vaginitis (principal); B37.3 Candidiasis of vulva and vagina; R10.32 Left lower quadrant pain
CPT/HCPCS: 36415; 80053; 83690; 87491; 87591; 96361; 96374; 96375; 99285; 74177; 81003; 81015; 84702; 85025; 87480; 87510; 87660; 99284; J1885; J2270; J3490

== ENCOUNTER 2018-05-11 07:20 | Emergency (ER) | payer MEDICAID, SELFPAY ==
[2018-05-11 07:23] VITALS: BP 123/67; PULSE 83; RESP 16; TEMP 37; O2SAT 96
--- NOTE | 2018-05-11 07:42 | DI.US_ITS ---
SYMPTOM/DIAGNOSIS: LT LEG PAIN, SWELLING, ? DVT DUPLEX VENOUS ULTRASOUND LEFT LOWER EXTREMITY: The study was carried out according to the usual protocol. The superficial, femoral, popliteal and proximal trifurcation in the superior portion of the leg are well seen. Good compressibility is noted throughout. Flow is demonstrated and flow augmentation was easily elicited with calf compression. SUMMARY: There is no evidence of DVT.
--- NOTE | 2018-05-11 07:42 | W.ED.GENAD ---
Discharge Plan Disposition Patient Disposition: HOME Condition: Stable Discharge Details Chief Complaint: GenMedical Clinical Impression: Chronic acquired lymphedema, Superficial skin infection Primary Care Provider: Mary Jo ED Provider: Austin Quan Home Meds and New Rx's Prescriptions: New clindamycin HCl 150 mg capsule 450 mg PO TID 7 Days Qty: 63 RF: 0 Continued trazodone 100 mg tablet 50 - 100 mg PO HS Qty: 120 RF: 4 amoxicillin 500 mg capsule 500 mg PO BID Qty: 10 RF: 1 promethazine 25 MG tablet 25 mg PO Q8H PRNQty: 30 RF: 0 sertraline 50 MG tablet 50 mg PO DAILY Qty: 90 RF: 11 Cipro HC 0.2-1 % drops,suspension 3 drp OT BID Qty: 10 RF: 1 Ibuprofen [Ibuprofen Ib] 200 MG tablet 800 mg PO PRN PRNRF: 0 naproxen sodium [Aleve] 220 mg Capsule 1 tab PO RF: 0 Discharge Instructions Instructions: Acute Wound Care (ED), Lymphedema (ED) Additional Instructions: Apply topical antibiotic ointment to the affected area twice daily for the next few days. Keep wound covered with a gauze dressing to help with oozing. If you develop any worsening redness, stop your amoxicillin and start the clindamycin antibiotic which will cover for your ear infection as well as for a skin infection. Follow-up with your primary care doctor in 1 week for reevaluation as needed. Return immediately to the emergency department if you have any worsening or new concerning symptoms such as fever, increased pain redness, swelling or red streaking. Discharge Data Discharge Physician: Amy Osborn Medical Decision Making <Amy Osborn DO - Last Filed: 05/11/18 08:17> 32-year-old female with a history of chronic lymphedema in the left leg for the past 17 years status post a spider bite who presents with oozing from left ankle since yesterday. She also admits to pain extending from the left foot up to the left hip. She admits to some redness around the area. She denies any fever, injury, new medications, recent travel, recent surgery. She states her leg swelling is chronic and does not appear any worse than usual. Vitals within normal limits. Left lower extremity appears more edematous compared to right but she states this is chronic. There is minimal clear using noted to the left posterior lateral ankle. There is minimal patches of erythema surrounding this area that are mildly tender. There is no induration, fluctuance and no evidence of abscess. Discussed with patient that her oozing likely is due to an opening in the skin and from her chronic lymphedema. I do not see any signs indicative of a DVT, but patient is concerned about this and would like to proceed with an ultrasound. Will order a Doppler ultrasound. 0800 --case endorsed to Dr. Quan to follow-up on ultrasound results. We will otherwise placed topical antibiotics to wound. Patient is on amoxicillin for an ear infection. If her superficial infection near her ankle worsens, she is instructed to stop the amoxicillin and start the clindamycin prescription. She is instructed follow the primary care doctor for reevaluation and return here at any time if worse. Medical Records Medical records reviewed: Yes I reviewed the patient's medical records. HPI <Amy Osborn DO - Last Filed: 05/11/18 08:17> General Mode of arrival: ambulatory. Date/Time Provider Initiated Documentation: 05/11/18 07:26. Limitations to Documentation: no limitations. Information obtained by: patient. HPI Narrative: Patient is a 32-year-old female who presents with oozing from her left ankle since yesterday. She has a history of chronic left leg lymphedema for the past 17 years status post a spider bite. She states the swelling is no worse than usual. She noted clear oozing from the left ankle yesterday. She denies any known injury, travel. She states she is currently on amoxicillin and eardrops for an ear infection. She is also noticed some areas of redness around the oozing. She is also complaining of pain extending from her left ankle up into her left hip. Related Data Home Medications Medication Instructions Recorded Confirmed promethazine 25 mg PO Q8H PRN #30 tab 12/14/16 05/09/18 Ibuprofen [Ibuprofen Ib] 800 mg PO PRN PRN 04/21/17 05/09/18 sertraline 50 mg PO DAILY #90 tab-cap 10/02/17 05/09/18 naproxen sodium [Aleve] 1 tab PO 11/26/17 05/09/18 trazodone 100 mg tablet 50 - 100 mg PO HS #120 tab-cap 03/26/18 05/09/18 amoxicillin 500 mg capsule 500 mg PO BID #10 cap 05/09/18 05/09/18 ciprofloxacin 0.2 %-hydrocortisone 3 drp OT BID #10 ml 05/10/18 1 % ear drops,suspension clindamycin HCl 450 mg PO TID 7 Days #63 cap 05/11/18 Previous Rx's Medication Instructions Recorded sertraline 50 mg PO DAILY #90 tab-cap 10/02/17 trazodone 100 mg tablet 50 - 100 mg PO HS #120 tab-cap 03/26/18 amoxicillin 500 mg capsule 500 mg PO BID #10 cap 05/09/18 ciprofloxacin 0.2 %-hydrocortisone 3 drp OT BID #10 ml 05/10/18 1 % ear drops,suspension clindamycin HCl 450 mg PO TID 7 Days #63 cap 05/11/18 Allergies Allergy/AdvReac Type Severity Reaction Status Date / Time vancomycin Allergy Severe diarrhea, Unverified 05/11/18 07:27 redness cephalexin [Cephalexin] AdvReac Severe Abdominal Unverified 05/11/18 07:27 Cramps sulfamethoxazole AdvReac Severe Nausea and Unverified 05/11/18 07:27 [From Bactrim] vomiting trimethoprim [From Bactrim] AdvReac Severe Nausea and Unverified 05/11/18 07:27 vomiting Cephalosporins AdvReac Intermediate Diarrhea Unverified 05/11/18 07:27 codeine phosphate AdvReac Intermediate Vomiting Unverified 05/11/18 07:27 [From Tylenol-Codeine #3] ketorolac AdvReac Intermediate Cramping/vo Unverified 05/11/18 07:27 mitting oxycodone AdvReac Intermediate Nausea/vomi Unverified 05/11/18 07:27 tting tramadol AdvReac Intermediate Diarrhea Unverified 05/11/18 07:27 General Stated Complaint: GenMedical HALINA: 3 Review of Systems <Amy Osborn DO - Last Filed: 05/11/18 08:17> Review of Systems All systems reviewed & are unremarkable except as noted in HPI and below Constitutional Reports as per HPI, Denies chills and Denies fever(s) Eyes Denies blurry vision ENT Denies dizziness, Denies sore throat and Denies throat swelling Cardiovascular Denies chest pain and Denies dyspnea Respiratory Denies cough and Denies dyspnea Gastrointestinal Denies abdominal pain, Denies diarrhea and Denies vomiting Genitourinary Denies hematuria and Denies dysuria Musculoskeletal Denies back pain and Denies numbness Integumentary/Breasts Denies lesions and Denies rash Neurologic Denies dizziness, Denies focal weakness and Denies numbness Allergic/Immunologic Denies throat swelling PFSH <Amy Osborn DO - Last Filed: 05/11/18 08:17> Medical History Anemia Anxiety BMI 32.0-32.9,adult Depression Endometriosis of pelvis (~2009) Hepatic steatosis Hepatomegaly Kidney stones Lymphedema Patellofemoral dysfunction of left knee Vitamin D deficiency Vulvodynia Surgical History Cholecystectomy (12/28/16) Diagnostic Laproscopy (03/03/10) EGD - MAC Extracorporeal shock wave lithotripsy wisdom teeth extraction Family History Mother Diabetes Heart disease Hyperlipidemia Father Colon cancer Heart disease Hyperlipidemia Sister Hyperlipidemia Grandfather Diabetes Grandfather Diabetes Hyperlipidemia Asthma Grandmother Diabetes Personal history of malignant neoplasm Heart disease Hyperlipidemia Grandmother No problems noted. Social History Smoking and Tabacco status: Former Tobacco Use alcohol intake: current alcohol intake frequency: a few times a month substance use type: does not use Exam <Amy Osborn DO - Last Filed: 05/11/18 08:17> Const General: cooperative, healthy appearing and no acute distress [facility] Head: normal to inspection Face and sinus: normal facial exam Eyes General: appearance normal, both eyes and all related structures Pupils: PERRL EOM: EOM intact bilaterally Neck Neck: normal visual inspection and No submandibular swelling Lymphatic: no lymphadenopathy noted Chest Chest: normal inspection of the chest and no tenderness Resp Effort & Inspection: normal respiratory effort and able to speak in complete sentences Auscultation: clear to auscultation bilaterally Cardio Rate: regular rate Rhythm: regular rhythm GI Inspection: normal to inspection Palpation: soft, not firm, not rigid and nontender Auscultation: normal bowel sounds Skin General skin exam: no rashes or lesions noted Neuro General: alert, awake and oriented x3 Cognition: normal cognition Speech: speech normal Motor: muscle tone normal throughout Sensory Exam: no sensory deficits noted Extrem General: normal to inspection, full ROM, normal capillary refill and calf tenderness on the left Other: Chronic nonpitting edema to the left lower extremity extending from foot up to left hip. Edema in left leg is more significant than the right leg. There is an area of clear oozing noted to the left posterior lateral ankle. There are small patches of erythema which are minimally tender. She has pain in left leg with range of motion. No evidence of ecchymosis, deformity, trauma. Left DP/PT pulses intact. Psych Appearance: grossly normal Mental Status: mental status grossly normal Speech and Movement: speech and movement normal Affect: normal affect Course <Amy Osborn DO - Last Filed: 05/11/18 08:17> Vital Signs Temperature 98.6 F 05/11/18 07:23 Pulse 83 05/11/18 07:23 Respiratory Rate 16 05/11/18 07:23 Blood Pressure 123/67 05/11/18 07:23 Pulse Oximetry 96 05/11/18 07:23 Temperature 98.6 F 05/11/18 07:23 Temperature Source Skin 05/11/18 07:23 Pulse 83 05/11/18 07:23 Respiratory Rate 16 05/11/18 07:23 Respiratory Effort 05/11/18 07:35 Respiratory Depth Normal 05/11/18 07:35 Respiratory Pattern Normal 05/11/18 07:35 Blood Pressure 123/67 05/11/18 07:23 Pulse Oximetry 96 05/11/18 07:23 Pain Level 4 05/11/18 07:23 Sign Out <Amy Osborn DO - Last Filed: 05/11/18 08:17> Sign Out Data: Sign Out Comment: Follow up on US results and final disposition Last updated by Amy Osborn DO at 05/11/18 08:13 Post-Handoff Eval: Pt's u/s shows no dvt.No evidence of infection at this time. Will have her f/u with pcp and return precautions given. HAs 2+ dp/pt pulses and intact sensation so doubt arterial occlusion, dissection, and no crepitus to suggest nec fasc
[2018-05-11 08:31] VITALS: BP 123/67; PULSE 83; RESP 16; TEMP 37; O2SAT 96
== END 2018-05-11 08:35 | disposition home or self-care (01) ==
PROVIDERS: Emergency Provider Emergency Medicine; PCP Internal Medicine
DX: L08.9 Local infection of the skin and subcutaneous tissue, unspecified (principal); I89.0 Lymphedema, not elsewhere classified
CPT/HCPCS: 99284; 93971

== ENCOUNTER 2018-05-23 15:21 | Outpatient (REF) | payer MEDICAID, SELFPAY | END 2018-05-23 15:41 | LOC: LBN 15:21 | PROVIDERS: PCP Internal Medicine; Visit Provider Family Medicine | DX: B08.4 Enteroviral vesicular stomatitis with exanthem (principal) | CPT/HCPCS: 87077; 87070; 87186; 87205 ==

== ENCOUNTER 2018-06-18 19:56 | Emergency (ER) | payer MEDICAID, SELFPAY ==
[2018-06-18 20:06] VITALS: BP 139/76; PULSE 87; RESP 18; TEMP 36.3; O2SAT 97
--- NOTE | 2018-06-18 20:26 | ED.GENADUL_ITS ---
Discharge Plan Disposition Patient Disposition: HOME Condition: Stable Discharge Details Chief Complaint: Cellulitis Clinical Impression: Cellulitis, Chronic acquired lymphedema Primary Care Provider: Mary Jo ED Provider: Amy Osborn Home Meds and New Rx's Prescriptions: New doxycycline hyclate 100 mg tablet 100 mg PO BID 7 Days Qty: 14 RF: 0 Continued trazodone 100 mg tablet 50 - 100 mg PO HS Qty: 120 RF: 4 promethazine 25 MG tablet 25 mg PO Q8H PRNQty: 30 RF: 0 sertraline 50 MG tablet 50 mg PO DAILY Qty: 90 RF: 11 Ibuprofen [Ibuprofen Ib] 200 MG tablet 800 mg PO PRN PRNRF: 0 naproxen sodium [Aleve] 220 mg Capsule 1 tab PO PRNRF: 0 Discharge Instructions Instructions: Cellulitis (ED), Lymphedema (ED) Additional Instructions: Alternate Tylenol and Motrin as needed and directed for pain. Take the antibiotics until finished. Apply warm compresses to affected area for 20 minutes at a time. Follow-up with your scheduled appointment with your lymphedema team doctors this month. Return immediately to the emergency department with any worsening or new concerning symptoms. Discharge Data Discharge Physician: Amy Osborn Medical Decision Making 32-year-old female with history of chronic lymphedema and recently treated with Bactrim and clindamycin for cellulitis of her left leg who presents for concern for return of cellulitis over the past 2-3 days. She finished Bactrim 3 weeks ago. Her allergy list notes Keflex which causes abdominal cramps, Bactrim which causes nausea and vomiting and cephalosporins which causes diarrhea. She states she has been able to tolerate clindamycin and Bactrim without anaphylaxis. Vitals within normal limits. Patient appears nontoxic. She has tender erythematous papules and blanching erythema to her left lower leg. There is no evidence of abscess. She is neurovascularly intact. Appears consistent with a mild cellulitis. As patient just finished Bactrim and took clindamycin 6 weeks ago, will treat with doxycycline. Will give 1 tab here as well as tab for home and prescrip tion. Patient denies chance of . Patient declines test at this time. She is instructed to alternate Tylenol Motrin for pain, take the antibiotics until finished, follow-up with her primary care doctor for evaluation here at any time she is instructed to follow-up with her scheduled appointment with her lymphedema team later this month. HPI General Mode of arrival: ambulatory . Date/Time Provider Initiated Documentation: 06/18/18 20:17 . Limitations to Documentation: no limitations . Information obtained by: patient . HPI Narrative: Patient is a 32-year-old female with a history of chronic lymphedema who presents with concern for cellulitis on her left leg. She states she took clindamycin and Bactrim in April, and then was treated with Bactrim 3 weeks ago for cellulitis from lymphedema in her leg. She states the Bactrim completely resolved all of her cellulitis until 2-3 days ago when the symptoms returned. She states she has a tender red bump on her left ankle with surrounding redness and tenderness. She denies fever. She states she has been eating and drinking normally. She has an appointment with her lymphedema team of doctors later this month. Related Data Home Medications Medication Instructions Recorded Confirmed promethazine 25 mg PO Q8H PRN #30 tab 12/14/16 06/18/18 Ibuprofen [Ibuprofen Ib] 800 mg PO PRN PRN 04/21/17 06/18/18 sertraline 50 mg PO DAILY #90 tab-cap 10/02/17 06/18/18 naproxen sodium [Aleve] 1 tab PO PRN 11/26/17 05/23/18 trazodone 100 mg tablet 50 - 100 mg PO HS #120 tab-cap 03/26/18 06/18/18 doxycycline hyclate 100 mg PO BID 7 Days #14 tab 06/18/18 Previous Rx's Medication Instructions Recorded sertraline 50 mg PO DAILY #90 tab-cap 10/02/17 trazodone 100 mg tablet 50 - 100 mg PO HS #120 tab-cap 03/26/18 doxycycline hyclate 100 mg PO BID 7 Days #14 tab 06/18/18 Allergies Allergy/AdvReac Type Severity Reaction Status Date / Time vancomycin Allergy Severe diarrhea, Unverified 06/18/18 20:11 redness cephalexin [Cephalexin] AdvReac Severe Abdominal Unverified 06/18/18 20:11 Cramps sulfamethoxazole AdvReac Severe Nausea and Unverified 06/18/18 20:11 [From Bactrim] vomiting trimethoprim [From Bactrim] AdvReac Severe Nausea and Unverified 06/18/18 20:11 vomiting Cephalosporins AdvReac Intermediate Diarrhea Unverified 06/18/18 20:11 codeine phosphate AdvReac Intermediate Vomiting Unverified 06/18/18 20:11 [From Tylenol-Codeine #3] ketorolac AdvReac Intermediate Cramping/vo Unverified 06/18/18 20:11 mitting oxycodone AdvReac Intermediate Nausea/vomi Unverified 06/18/18 20:11 tting tramadol AdvReac Intermediate Diarrhea Unverified 06/18/18 20:11 General Stated Complaint: Cellulitis HALINA: 4 Review of Systems Review of Systems All systems reviewed & are unremarkable except as noted in HPI and below Constitutional Reports as per HPI, Denies chills and Denies fever(s) Eyes Denies blurry vision ENT Denies dizziness, Denies sore throat and Denies throat swelling Cardiovascular Denies chest pain and Denies dyspnea Respiratory Denies cough and Denies dyspnea Gastrointestinal Denies abdominal pain, Denies diarrhea and Denies vomiting Genitourinary Denies hematuria and Denies dysuria Musculoskeletal Denies back pain and Denies numbness Integumentary/Breasts Reports lesions and Denies rash Neurologic Denies dizziness, Denies focal weakness and Denies numbness Allergic/Immunologic Denies throat swelling [facility] Social History Smoking/Tobacco Use Status: Current every day Tobacco Type: cigarettes Alcohol Intake: current Alcohol Intake frequency: a few times a month Drug use: Never Substance use type: does not use Do you feel safe in your relationship?: Yes Exam Const General: cooperative, healthy appearing and no acute distress [facility] Head: normal to inspection Mouth: oral mucosae normal Eyes General: appearance normal, both eyes and all related structures Neck Neck: normal visual inspection Resp Effort & Inspection: normal respiratory effort and able to speak in complete sentences Cardio Rate: regular rate Skin General skin exam: no rashes or lesions noted Neuro General: alert, awake and oriented x3 Motor: muscle tone normal throughout Extrem Ankle/foot/toe images: 1. 1 x 1 cm scaly erythematous papule with surrounding erythema and multiple faint erythematous papules around site with surrounding erythema. Blanching. No induration, fluctuance, drainage or bleeding. Psych Appearance: grossly normal Affect: normal affect Course Vital Signs Temperature 97.3 F L 06/18/18 20:06 Pulse 87 06/18/18 20:06 Respiratory Rate 18 06/18/18 20:06 Blood Pressure 139/76 06/18/18 20:06 Pulse Oximetry 97 06/18/18 20:06 Temperature 97.3 F L 06/18/18 20:06 Pulse 87 06/18/18 20:06 Respiratory Rate 18 06/18/18 20:06 Respiratory Effort Non-Labored 06/18/18 20:12 Blood Pressure 139/76 06/18/18 20:06 Blood Pressure Position Sitting 06/18/18 20:06 Pulse Oximetry 97 06/18/18 20:06 Oxygen Delivery Method Room Air 06/18/18 20:06 Oxygen Flow Rate 0 06/18/18 20:06 Pain Level 7 06/18/18 20:06
[2018-06-18] MEDS: Doxycycline Hyclate 100 MG CAP PO ×2 (21:12)
== END 2018-06-18 21:20 | disposition home or self-care (01) ==
PROVIDERS: Emergency Provider Physician Assistant; PCP Internal Medicine
DX: L03.116 Cellulitis of left lower limb (principal); I89.0 Lymphedema, not elsewhere classified
CPT/HCPCS: 99283

== ENCOUNTER 2018-07-11 22:16 | Emergency (ER) | payer MEDICAID, SELFPAY ==
[2018-07-11 22:29] VITALS: BP 133/87; PULSE 78; RESP 16; TEMP 36.7; O2SAT 98
[2018-07-11 22:49] LABS: Bilirubin Negative (Negative); Blood Large (Negative); Clarity Cloudy; Glucose Negative (Negative); Ketones Negative (Negative); Leukocyte Esterase Negative (Negative); Nitrite Negative (Negative); Specific Gravity 1.025 (1.005-1.025); Urobilinogen 0.2 EU/dL (Up TO 0.2); pH 6.5 (5-8)
[2018-07-11] MEDS: Lactated Ringers 1,000 ML 1000 ML IV (22:55)
[2018-07-11 22:57] LABS: Epithelial Cells Many HPF (Negative); RBC >50 (0-2); WBC 0-2 HPF (0-5)
[2018-07-11 22:58] LABS: Bacteria Few HPF (Negative); C & S Indicated? No; Casts Negative LPF (Negative); Crystals Negative HPF (Negative); Mucus Negative (Negative)
--- NOTE | 2018-07-11 23:11 | W.ED.GENAD ---
Discharge Plan Disposition Patient Disposition: HOME Condition: Good Discharge Details Chief Complaint: FlankPain Clinical Impression: Renal colic on right side Primary Care Provider: Mary Jo ED Provider: Rory Chowdary [place] Meds and New Rx's Prescriptions: New hydrocodone-acetaminophen 5-300 mg tablet 1 tab PO Q4H PRN (Reason: pain) Qty: 10 RF: 0 Continued trazodone 100 mg tablet 50 - 100 mg PO HS Qty: 120 RF: 4 promethazine 25 MG tablet 25 mg PO Q8H PRNQty: 30 RF: 0 sertraline 50 MG tablet 50 mg PO DAILY Qty: 90 RF: 11 Changed Ibuprofen [Ibuprofen Ib] 200 MG tablet 600 mg PO Q6H PRNQty: 0 RF: 0 Discontinued naproxen sodium [Aleve] 220 mg Capsule 1 tab PO PRNRF: 0 Discharge Instructions Instructions: Renal Colic (ED) Additional Instructions: You may continue to use ibuprofen 600 mg every 6 hours for pain. Use Vicodin for breakthrough pain. Drink plenty of fluids. Contact Dr. Barnard for follow-up. Return to ED for fever, uncontrolled pain, persistent vomiting. Referrals: Sebastián Barnard MD [ [facility] STAFF PHYSICIAN] - Medical Decision Making Patient presenting with right flank pain with history of kidney stones. She has hematuria. She has nausea but no vomiting. Her abdomen is benign. Review of her records show that she has had multiple CT scans in the past. Attempt to avoid rescanning due to excessive radiation exposure. Urine test. Urinalysis is positive for blood but negative for leukocytes or nitrites. Micro is only blood. White count is normal. Kidney function normal. She received fluids, Zofran, morphine x2 doses. She was much more comfortable and requested to go home. She is referred to Dr. Barnard for follow-up. Have asked her to strain her urine. I did review her records in the [place] prescription database. She has no narcotics prescribed in the last year. She has had 3 prescriptions for Ativan. Will provide to Vicodin to go home with from here and prescription for 10 more. She has promethazine at home for nausea. State information sheet on narcotics given. Informed consent signed. Patient will contact Dr. Barnard in the morning for follow-up. Return to ED if fever, increased in uncontrolled pain, persistent vomiting. Medical Records Medical records reviewed: Yes I reviewed the patient's medical records. Lab Data Lab results reviewed: Yes I reviewed the patient's lab results. HPI General Mode of arrival: ambulatory. Date/Time Provider Initiated Documentation: 07/11/18 22:49. Limitations to Documentation: no limitations. Information obtained by: patient. HPI Narrative: Patient presents to ED with complaint of right flank pain. She has also noticed some blood in the urine. She has had no fever. Pain is similar to previous kidney stones which she has had in the past. She has some nausea but no vomiting. She has no urinary symptoms in regards to dysuria, urgency, frequency. She has had prior lithotripsy. She has not had a kidney stone for some time. Symptoms started about 24 hours ago. She has taken ibuprofen at home. Related Data Home Medications Medication Instructions Recorded Confirmed promethazine 25 mg PO Q8H PRN #30 tab 12/14/16 07/11/18 sertraline 50 mg PO DAILY #90 tab-cap 10/02/17 07/11/18 trazodone 100 mg tablet 50 - 100 mg PO HS #120 tab-cap 03/26/18 07/11/18 Ibuprofen [Ibuprofen Ib] 600 mg PO Q6H PRN #0 07/12/18 07/11/18 hydrocodone-acetaminophen 1 tab PO Q4H PRN #10 tab 07/12/18 Previous Rx's Medication Instructions Recorded sertraline 50 mg PO DAILY #90 tab-cap 10/02/17 trazodone 100 mg tablet 50 - 100 mg PO HS #120 tab-cap 03/26/18 Ibuprofen [Ibuprofen Ib] 600 mg PO Q6H PRN #0 07/12/18 hydrocodone-acetaminophen 1 tab PO Q4H PRN #10 tab 07/12/18 Allergies Allergy/AdvReac Type Severity Reaction Status Date / Time cephalexin [Cephalexin] AdvReac Severe Abdominal Unverified 07/11/18 22:32 Cramps sulfamethoxazole AdvReac Severe Nausea and Unverified 07/11/18 22:32 [From Bactrim] vomiting trimethoprim [From Bactrim] AdvReac Severe Nausea and Unverified 07/11/18 22:32 vomiting vancomycin AdvReac Severe diarrhea, Unverified 07/11/18 22:32 redness Cephalosporins AdvReac Intermediate Diarrhea Unverified 07/11/18 22:32 codeine phosphate AdvReac Intermediate Vomiting Unverified 07/11/18 22:32 [From Tylenol-Codeine #3] ketorolac AdvReac Intermediate Cramping/vo Unverified 07/11/18 22:32 mitting oxycodone AdvReac Intermediate Nausea/vomi Unverified 07/11/18 22:32 tting tramadol AdvReac Intermediate Diarrhea Unverified 07/11/18 22:32 General Stated Complaint: FlankPain HALINA: 3 Review of Systems Review of Systems As documented in HPI otherwise negative as below. Const: no fever, chills, weakness Resp: no cough, SOB, pleuritic pain CV: no CP, diaphoresis, edema, syncope GI: positive nausea; no abdominal pain, vomiting, diarrhea Neuro: no headache, numbness, focal weakness, confusion PFSH Medical History Anemia Anxiety BMI 32.0-32.9,adult Depression Endometriosis of pelvis (~2009) Hepatic steatosis Hepatomegaly Kidney stones Lymphedema Patellofemoral dysfunction of left knee Vitamin D deficiency Vulvodynia Surgical History Cholecystectomy (12/28/16) Diagnostic Laproscopy (03/03/10) EGD - MAC Extracorporeal shock wave lithotripsy wisdom teeth extraction Social History Smoking/Tobacco Use Status: Current every day Tobacco Type: cigarettes Alcohol Intake: current Alcohol Intake frequency: a few times a month Drug use: Never Substance use type: does not use Do you feel safe in your relationship?: Yes Exam Narrative Exam Narrative: Vitals: Normal. Const: WDWN female in NAD. HEENT: NC/AT. Normal facial exam. Eyes: Normal conjunctiva and sclera. Neck: Supple. Trachea midline. Lungs: Normal respiratory effort. Lungs are clear. Cor: RRR without murmur/gallop. Good radial pulses. GI: Soft. NT/ND. No guarding or rebound. Neuro: A+O x 3. CN grossly in tact. Good strength and no focal deficit. Course Vital Signs Temperature 98.1 F 04/24/19 22:29 Pulse 78 07/11/18 22:29 Respiratory Rate 16 07/11/18 22:29 Blood Pressure 133/87 07/11/18 22:29 Pulse Oximetry 98 07/11/18 22:29 Temperature 98.1 F 07/11/18 22:29 Temperature Source Skin 07/11/18 22:29 Pulse 78 07/11/18 22:29 Respiratory Rate 16 07/11/18 22:29 Respiratory Effort Non-Labored 07/11/18 22:45 Blood Pressure 133/87 07/11/18 22:29 Pulse Oximetry 98 07/11/18 22:29 Oxygen Delivery Method Room Air 07/11/18 22:29 Oxygen Flow Rate 0 07/11/18 22:29 Pain Level 10 07/11/18 22:45 Lab/Test Results Lab/Test Results: Laboratory Tests Range/Units 07/11/18 22:35 Urine Color (Yellow) Dark yellow Urine Clarity Cloudy Urine pH (5-8) 6.5 Ur Specific [place] (1.005-1.025) 1.025 Urine Protein (Negative) mg/dL Negative Urine Ketones (Negative) mg/dL Negative Urine Blood (Negative) Large H Urine Nitrite (Negative) Negative Urine Bilirubin (Negative) Negative Urine Urobilinogen (Up TO 0.2) EU/dL 0.2 Ur Leukocyte Esterase (Negative) Negative Urine RBC (0-2) >50 H Urine WBC (0-5) HPF 0-2 Ur Epithelial Cells (Negative) HPF Many Urine Crystals (Negative) HPF Negative Urine Bacteria (Negative) HPF Few Urine Casts (Negative) LPF Negative Urine Mucus (Negative) Negative Ur Culture Indicated? No Urine Glucose (Negative) mg/dL Negative POC- Test(urine) Negative
[2018-07-11 23:17] LABS: Abs Immature Grans 0.02 k/cumm (0.0-0.09); Absolute Basophil Count 0.03 k/cumm (0.0-0.2); Absolute Eosinophil Count 0.18 k/cumm (0.0-0.7); Absolute Lymphocyte Count 2.79 k/cumm (1.2-3.4); Absolute Neutrophil Count 3.82 k/cumm (1.2-6.7); Basophils % 0.4; Eosinophils % 2.5; HCT 41.1 % (36.0-46.0); HGB 14.2 g/dL (12.0-15.5); Immature Grans % 0.3; Mean Corp. HGB Concentration 34.5 g/dL (32.0-36.0); Mean Corpuscular Hemoglobin 32.9 pg (27.0-33.0); Mean Corpuscular Volume 95.1 fL (80-95); Mean Platelet Volume 10.6 fL (8.0-11.0); Monocytes % 6.8; Platelet Count 198 x1000/uL (130-400); RBC 4.32 m/cumm (4.00-5.20); RBC Distribution Width 11.7 % (11.7-14.6); White Blood Cell Count 7.34 k/cumm (4.4-10.8)
[2018-07-11 23:24] LABS: BUN 8 mg/dL (7-18); Calcium 8.5 mg/dL (8.5-10.1); Chloride 105 mmol/L (98-107); Glucose 104 mg/dL (70-100); Potassium 3.6 mmol/L (3.5-5.1); Sodium 141 mmol/L (136-145)
[2018-07-11] MEDS: MORPHine 10 MG/ML VIAL 5 MG IVP (23:24)
[2018-07-11] MEDS: Ondansetron 4 MG/2 ML VIAL IVP (23:27)
[2018-07-11 23:28] VITALS: BP 149/81; PULSE 74; RESP 18; O2SAT 96
[2018-07-12] MEDS: MORPHine 10 MG/ML VIAL 5 MG IVP (00:02)
[2018-07-12] MEDS: HYDROcodone 5/Acetaminophen 325 TAB PO (00:35)
[2018-07-12 00:37] VITALS: BP 123/69; PULSE 79; RESP 18; TEMP 36.7; O2SAT 95
== END 2018-07-12 00:37 | disposition home or self-care (01) ==
PROVIDERS: Emergency Provider Emergency Medicine; PCP Internal Medicine
DX: N23 Unspecified renal colic (principal); R11.0 Nausea
CPT/HCPCS: 36415; 80048; 81025; 96361; 96374; 96375; 99284; 81003; 81015; 85025; J2270; J2405

== ENCOUNTER 2018-07-21 19:43 | Emergency (ER) | payer MEDICAID, SELFPAY ==
[2018-07-21 19:48] VITALS: BP 141/96; PULSE 95; RESP 16; TEMP 36.8; O2SAT 99
[2018-07-21 20:05] LABS: Bilirubin Negative (Negative); Blood Large (Negative); Clarity Cloudy; Glucose Negative (Negative); Ketones Negative (Negative); Leukocyte Esterase Negative (Negative); Nitrite Negative (Negative); Specific Gravity >= 1.030 (1.005-1.025); Urobilinogen 0.2 EU/dL (Up TO 0.2); pH 5.5 (5-8)
--- NOTE | 2018-07-21 20:09 | W.ED.GENAD ---
Discharge Plan Disposition Patient Disposition: HOME Condition: Improving Discharge Details Chief Complaint: Urinary Clinical Impression: Renal colic on right side Primary Care Provider: Mary Jo ED Provider: Ezequiel Washburn Home Meds and New Rx's Prescriptions: New tamsulosin [Flomax] 0.4 mg capsule 0.4 mg PO DAILY Qty: 14 RF: 0 hydrocodone-acetaminophen [Warren] 5-325 mg tablet 1 tab PO Q6H PRN (Reason: pain, severe) Qty: 6 RF: 0 Continued trazodone 100 mg tablet 50 - 100 mg PO HS Qty: 120 RF: 4 sertraline 50 MG tablet 50 mg PO DAILY Qty: 90 RF: 11 promethazine 25 mg tablet 25 mg PO Q8H PRN (Reason: nausea and vomiting) Qty: 30 RF: 0 Ibuprofen [Ibuprofen Ib] 200 MG tablet 600 mg PO Q6H PRNQty: 0 RF: 0 Discharge Instructions Instructions: Renal Colic (ED) Additional Instructions: Continue to use [id number] ibuprofen as needed for pain and use narcotic on limited basis for more severe pain. Stay well-hydrated continue to take your other medications along with Flomax. Please follow-up with urology next week for reassessment and further treatment of your condition. Return to the emergency department for any fever chills, severe worsening of symptoms, persistent vomiting or further concerns she may have. Referrals: Sebastián Barnard MD [ [facility] STAFF PHYSICIAN] - 1 week (Please call urology office on Monday for arrangement of follow-up appointment.) Medical Decision Making Patient presenting to the emergency department for chief complaint of right flank pain. Patient states that this is been intermittent for approximately the past 10 days but over the past 1 to 2 hours has become severe increase in discomfort. Patient states long ongoing history of kidney stones with at times needing stenting and stone removal. Patient states that today discomfort is very similar to previous episodes of kidney stones. Patient states some associated nausea but no vomiting, no fever chills, denies any other symptoms. Physical exam is remarkable for right CVA tenderness otherwise benign abdominal exam and no surgical findings. Patient is afebrile at this time and is not hypotensive. Plan to check labs and urinalysis given the patient is stating some hematuria otherwise given the patient describes this as similar to previous episodes of renal calculi that is my highest suspicion. Plan to avoid CT imaging of the abdomen given multiple images in the past stated by patient and patient is otherwise nontoxic in appearance. Pending results patient given fluids, Phenergan, and hydromorphone for pain control. Review of labs does show hematuria with some concentration of urine otherwise no signs of infection, review of other labs shows no decrease in renal function, no leukocytosis, and otherwise are nondiagnostic. Patient reassessed and states that she feels better. Given patient's history of renal calculi with similar presentation and labs suggestive of renal calculi I do not feel that any further work-up is needed. Patient was given 2 tablets of Warren 5/325 to go home and a limited prescription of same medication after review of drug database which shows no worrisome findings and the patient typically uses any controlled substance as prescribed. Patient was placed on Flomax after she reported that she had been on this in the past for her renal calculi. Patient was strongly encouraged to follow-up with urology later this week as I feel that this may have been the same episode as what she came in for previously just with worsening symptoms. Strict return precautions were discussed. After discussion of diagnosis and plan of care patient has no further needs, questions, or concerns and states clear understanding to return to the emergency department for any worsening symptoms. HPI General Mode of arrival: ambulatory. Date/Time Provider Initiated Documentation: 07/21/18 19:44. Limitations to Documentation: no limitations. Information obtained by: patient, RN notes reviewed and old records reviewed. History of Present Illness 32 year old F presents to the emergency department with the chief complaint of right flank pain, described as severe and similar to prior episodes, with intensity rated at 9. Quality is described as sharp, and is localized to the right (flank). Patient started experiencing this hour(s) (2) and it has been intermittent (for 10 days). No relieving factors improve symptom(s), No exacerbating factors reported . Patient did receive the following treatments prior to arrival, NSAID Related Data Home Medications Medication Instructions Recorded Confirmed sertraline 50 mg PO DAILY #90 tab-cap 10/02/17 07/21/18 trazodone 100 mg tablet 50 - 100 mg PO HS #120 tab-cap 03/26/18 07/21/18 Ibuprofen [Ibuprofen Ib] 600 mg PO Q6H PRN #0 07/12/18 07/21/18 promethazine 25 mg tablet 25 mg PO Q8H PRN #30 tab 07/12/18 07/21/18 hydrocodone-acetaminophen [Warren] 1 tab PO Q6H PRN #6 tab 07/21/18 tamsulosin [Flomax] 0.4 mg PO DAILY #14 cap 07/21/18 Previous Rx's Medication Instructions Recorded sertraline 50 mg PO DAILY #90 tab-cap 10/02/17 trazodone 100 mg tablet 50 - 100 mg PO HS #120 tab-cap 03/26/18 Ibuprofen [Ibuprofen Ib] 600 mg PO Q6H PRN #0 07/12/18 promethazine 25 mg tablet 25 mg PO Q8H PRN #30 tab 07/12/18 hydrocodone-acetaminophen [Warren] 1 tab PO Q6H PRN #6 tab 07/21/18 tamsulosin [Flomax] 0.4 mg PO DAILY #14 cap 07/21/18 Allergies Allergy/AdvReac Type Severity Reaction Status Date / Time cephalexin [Cephalexin] AdvReac Severe Abdominal Unverified 07/21/18 19:51 Cramps sulfamethoxazole AdvReac Severe Nausea and Unverified 07/21/18 19:51 [From Bactrim] vomiting trimethoprim [From Bactrim] AdvReac Severe Nausea and Unverified 07/21/18 19:51 vomiting vancomycin AdvReac Severe diarrhea, Unverified 07/21/18 19:51 redness Cephalosporins AdvReac Intermediate Diarrhea Unverified 07/21/18 19:51 codeine phosphate AdvReac Intermediate Vomiting Unverified 07/21/18 19:51 [From Tylenol-Codeine #3] ketorolac AdvReac Intermediate Cramping/vo Unverified 07/21/18 19:51 mitting oxycodone AdvReac Intermediate Nausea/vomi Unverified 07/21/18 19:51 tting tramadol AdvReac Intermediate Diarrhea Unverified 07/21/18 19:51 General Stated Complaint: Urinary HALINA: 3 Review of Systems Constitutional Denies fever(s) Cardiovascular Denies chest pain and Denies dyspnea Respiratory Denies dyspnea Gastrointestinal Denies abdominal pain, Reports nausea and Denies vomiting Genitourinary Reports as per HPI, Reports hematuria, Denies dysuria, Reports flank pain (right) and Denies urinary urgency PFSH Medical History Anemia Anxiety BMI 32.0-32.9,adult Depression Endometriosis of pelvis (~2009) Hepatic steatosis Hepatomegaly Kidney stones Lymphedema Patellofemoral dysfunction of left knee Vitamin D deficiency Vulvodynia Surgical History Cholecystectomy (12/28/16) Diagnostic Laproscopy (03/03/10) EGD - MAC Extracorporeal shock wave lithotripsy wisdom teeth extraction Family History Mother Diabetes Heart disease Hyperlipidemia Father Colon cancer Heart disease Hyperlipidemia Sister Hyperlipidemia Grandfather Diabetes Grandfather Diabetes Hyperlipidemia Asthma Grandmother Diabetes Personal history of malignant neoplasm Heart disease Hyperlipidemia Grandmother No problems noted. Social History Smoking/Tobacco Use Status: Current every day Tobacco Type: cigarettes Alcohol Intake: current Alcohol Intake frequency: holidays/special occasions only Drug use: Never Substance use type: does not use Do you feel safe in your relationship?: Yes Exam Const General: cooperative and no acute distress Orientation: alert, awake and oriented x3 Resp Effort & Inspection: normal respiratory effort and able to speak in complete sentences Auscultation: clear to auscultation bilaterally Cardio Rate: regular rate Rhythm: regular rhythm Heart Sounds: S1 normal and S2 normal GI Palpation: no hepatosplenomegaly, not firm, no guarding, no masses, not rigid and nontender Auscultation: normal bowel sounds Back/Spine/Pelvis Back: CVA tenderness (right) Neuro General: alert, awake and oriented x3 Extrem General: normal capillary refill Course Vital Signs Temperature 36.8 C 07/21/18 19:48 Pulse 95 H 07/21/18 19:48 Respiratory Rate 16 07/21/18 19:48 Blood Pressure 141/96 H 07/21/18 19:48 Pulse Oximetry 99 07/21/18 19:48 Temperature 36.8 C 07/21/18 19:48 Temperature Source Skin 07/21/18 19:48 Pulse 95 H 07/21/18 19:48 Respiratory Rate 16 07/21/18 19:48 Respiratory Effort Non-Labored 07/21/18 19:49 Blood Pressure 141/96 H 07/21/18 19:48 Pulse Oximetry 99 07/21/18 19:48 Pain Level 9 07/21/18 19:53 Lab/Test Results Lab/Test Results: POC- Test(urine) Negative
[2018-07-21] MEDS: Promethazine 25 MG TAB PO (20:13)
[2018-07-21 20:15] LABS: Bacteria Moderate HPF (Negative); C & S Indicated? No/Sq. Contamination; Casts Negative LPF (Negative); Crystals Negative HPF (Negative); Epithelial Cells Moderate HPF (Negative); Mucus Negative (Negative); Other Cells Negative (Negative); RBC >50 (0-2); WBC Negative HPF (0-5)
[2018-07-21] MEDS: Normal Saline 1,000 ML 1000 ML IV (20:23)
[2018-07-21] MEDS: HYDROmorphone 2 MG/ML VIAL 0.5 MG IVP (20:24)
[2018-07-21 20:40] LABS: ALT 41 U/L (12-78); AST 15 U/L (15-37); Albumin 3.9 g/dL (3.4-5.0); Alkaline Phosphatase 85 U/L (46-116); Anion Gap 10.9 mmol/L (3-11); BUN 10 mg/dL (7-18); Bilirubin, Total 0.3 mg/dL (0.2-1.0); CO2 26.1 mmol/L (21.0-32.0); CREATININE 0.76 mg/dL (0.55-1.02); Calcium 8.8 mg/dL (8.5-10.1); Chloride 102 mmol/L (98-107); Glucose 118 mg/dL (70-100); Potassium 3.4 mmol/L (3.5-5.1); Sodium 139 mmol/L (136-145); Total Protein 7.2 g/dL (6.4-8.2)
[2018-07-21 20:42] LABS: Abs Immature Grans 0.02 k/cumm (0.0-0.09); Absolute Basophil Count 0.04 k/cumm (0.0-0.2); Absolute Eosinophil Count 0.16 k/cumm (0.0-0.7); Absolute Lymphocyte Count 2.61 k/cumm (1.2-3.4); Absolute Monocyte Count 0.63 k/cumm (0.11-0.7); Basophils % 0.4; Eosinophils % 1.7; HCT 42.2 % (36.0-46.0); Immature Grans % 0.2; Lymphocytes % 27.9; Mean Corp. HGB Concentration 35.5 g/dL (32.0-36.0); Mean Corpuscular Hemoglobin 33.6 pg (27.0-33.0); Mean Corpuscular Volume 94.6 fL (80-95); Mean Platelet Volume 10.9 fL (8.0-11.0); Monocytes % 6.7; Neutrophils % 63.1; Platelet Count 188 x1000/uL (130-400); RBC 4.46 m/cumm (4.00-5.20); White Blood Cell Count 9.36 k/cumm (4.4-10.8)
[2018-07-21] MEDS: Tamsulosin 0.4 MG CAPCR PO (20:58)
[2018-07-21] MEDS: HYDROcodone 5/Acetaminophen 325 TAB PO (20:58)
[2018-07-21 21:03] VITALS: BP 135/88; PULSE 78; RESP 16; O2SAT 98
--- NOTE | 2018-07-22 07:28 | NUR.NOTE ---
Nursing Note: Referral faxed [facility] for follow up. Kailee Herr.
--- NOTE | 2018-07-23 09:25 | PDOC.ERCMPRO ---
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 KITTY Dugan, faxed referral to [facility] on 07/22.
--- NOTE | 2018-07-23 09:27 | CMPROGNOTE_ITS ---
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 KITTY Dugan, faxed referral to [facility] on 07/22.
== END 2018-07-21 20:09 | disposition home or self-care (01) ==
PROVIDERS: Emergency Provider Nurse Practitioner Family; PCP Internal Medicine
DX: N23 Unspecified renal colic (principal)
CPT/HCPCS: 36415; 80053; 81025; 96361; 96374; 99284; 81003; 81015; 85025

== ENCOUNTER 2018-07-26 21:14 | Emergency (ER) | payer MEDICAID, SELFPAY ==
[2018-07-26 21:20] VITALS: BP 135/85; PULSE 85; RESP 16; TEMP 36.7; O2SAT 98
--- NOTE | 2018-07-26 21:33 | ED.GENADUL_ITS ---
Discharge Plan Disposition Patient Disposition: HOME Condition: Good Discharge Details Chief Complaint: Urinary Clinical Impression: Right distal ureteral calculus Primary Care Provider: Mary Jo ED Provider: Rory Chowdary Home Meds and New Rx's Prescriptions: New hydrocodone-acetaminophen 5-325 mg Tablet 1 tab PO Q4H PRN PRNQty: 10 RF: 0 Continued trazodone 100 mg tablet 50 - 100 mg PO HS Qty: 120 RF: 4 sertraline 50 MG tablet 50 mg PO DAILY Qty: 90 RF: 11 promethazine 25 mg tablet 25 mg PO Q8H PRN (Reason: nausea and vomiting) Qty: 30 RF: 0 tamsulosin [Flomax] 0.4 mg capsule 0.4 mg PO DAILY Qty: 14 RF: 0 Ibuprofen [Ibuprofen Ib] 200 MG tablet 600 mg PO Q6H PRNQty: 0 RF: 0 Discharge Instructions Additional Instructions: Please check with urology office in the morning to see if there is anything available with Dr. Barnard prior to your scheduled appointment. If not may want to consider contacting [facility] in speaking to urology down there. Your stone is small and is at the bladder but it has been 2 weeks that you have been dealing with this. Return to ED for fever, vomiting, worsening pain. Referrals: Sebastián Barnard MD [ [facility] STAFF PHYSICIAN] - Discharge Data Discharge Date/Time-TO BE ENTERED AT DEPARTURE: 07/27/18 00:47 Medical Decision Making Patient has been treated presumptively for kidney stone based on previous history of stones with hematuria and symptoms consistent with stones. She had not been imaged on the last 2 visits due to multiple previous CT scans. I have discussed with her imaging tonight she continues to have symptoms and has not been seen by urology yet. She is agreeable to this. IV established and she is given fluids, Phenergan, morphine. Repeat CBC and chemistry obtained. Repeat urine obtained. CBC and kidney function remain normal. Urinalysis continues to have blood present. No nitrites or leukocytes. She had good relief of symptoms with medications. CT scan originally read as negative. On my review there appeared to be a stone at the distal ureter. Radiology reviewed films again and feel that while this is right near the ureter he thinks it is a phlebolith. Given the patient's symptoms and persistent blood in her urine I am not so sure. If it is ureteral stone it is 2 mm and distal. We will continue Flomax. We will have her contact urology again in the morning to see if her appointment can be any closer. She reports she was told that Dr. Barnard is on vacation. If this truly is the case I suggested she contact [facility] for their urology group to see if they can follow her up and determine whether this truly is stone or not. Patient started to have recurrent pain and was given Vicodin. She had been given this previously but has no more at home. I will prescribe 10 more for her. States sheet given once again and consent signed. Patient to return if she develops fever, uncontrolled pain, vomiting. Medical Records Medical records reviewed: Yes I reviewed the patient's medical records. Lab Data Lab results reviewed: Yes I reviewed the patient's lab results. HPI General Mode of arrival: ambulatory . Date/Time Provider Initiated Documentation: 07/26/18 21:19 . Limitations to Documentation: no limitations . Information obtained by: patient and old records reviewed . HPI Narrative: Patient returns to ED with recurrent right-sided abdominal/flank pain, nausea. Patient first seen by me on July 12 with same. She has a history of kidney stones. She was seen recently for same. She did not have imaging as she is previously had multiple CTs. She returns tonight with continued symptoms that have been intermittent. She denies fever. She has not yet been seen by ur ology. She did start taking Flomax on her last ED visit. She has ibuprofen and promethazine at all but nothing stronger for pain. Related Data Home Medications Medication Instructions Recorded Confirmed sertraline 50 mg PO DAILY #90 tab-cap 10/02/17 07/26/18 trazodone 100 mg tablet 50 - 100 mg PO HS #120 tab-cap 03/26/18 07/26/18 Ibuprofen [Ibuprofen Ib] 600 mg PO Q6H PRN #0 07/12/18 07/26/18 promethazine 25 mg tablet 25 mg PO Q8H PRN #30 tab 07/12/18 07/26/18 tamsulosin [Flomax] 0.4 mg PO DAILY #14 cap 07/21/18 07/26/18 hydrocodone-acetaminophen 1 tab PO Q4H PRN PRN #10 tab 07/27/18 Previous Rx's Medication Instructions Recorded sertraline 50 mg PO DAILY #90 tab-cap 10/02/17 trazodone 100 mg tablet 50 - 100 mg PO HS #120 tab-cap 03/26/18 Ibuprofen [Ibuprofen Ib] 600 mg PO Q6H PRN #0 07/12/18 promethazine 25 mg tablet 25 mg PO Q8H PRN #30 tab 07/12/18 tamsulosin [Flomax] 0.4 mg PO DAILY #14 cap 07/21/18 hydrocodone-acetaminophen 1 tab PO Q4H PRN PRN #10 tab 07/27/18 Allergies Allergy/AdvReac Type Severity Reaction Status Date / Time cephalexin [Cephalexin] AdvReac Severe Abdominal Unverified 07/26/18 21:27 Cramps sulfamethoxazole AdvReac Severe Nausea and Unverified 07/26/18 21:27 [From Bactrim] vomiting trimethoprim [From Bactrim] AdvReac Severe Nausea and Unverified 07/26/18 21:27 vomiting vancomycin AdvReac Severe diarrhea, Unverified 07/26/18 21:27 redness Cephalosporins AdvReac Intermediate Diarrhea Unverified 07/26/18 21:27 codeine phosphate AdvReac Intermediate Vomiting Unverified 07/26/18 21:27 [From Tylenol-Codeine #3] ketorolac AdvReac Intermediate Cramping/vo Unverified 07/26/18 21:27 mitting oxycodone AdvReac Intermediate Nausea/vomi Unverified 07/26/18 21:27 tting tramadol AdvReac Intermediate Diarrhea Unverified 07/26/18 21:27 General Stated Complaint: Urinary HALINA: 3 Review of Systems Review of Systems 12/31 Review of Systems completed and is negative except as stated above in HPI (Systems reviewed: Const, Eyes, ENT, Resp, CV, GI, , MSK, Skin, Neuro) PFSH Medical History Anemia Anxiety BMI 32.0-32.9,adult Depression Endometriosis of pelvis (~2009) Hepatic steatosis Hepatomegaly Kidney stones Lymphedema Patellofemoral dysfunction of left knee Vitamin D deficiency Vulvodynia Surgical History Cholecystectomy (12/28/16) Diagnostic Laproscopy (03/03/10) EGD - MAC Extracorporeal shock wave lithotripsy wisdom teeth extraction Social History Smoking/Tobacco Use Status: Current every day Tobacco Type: cigarettes Alcohol Intake: current Alcohol Intake frequency: holidays/special occasions only Drug use: Never Substance use type: does not use Do you feel safe at home: Yes Do you feel safe in your relationship?: Yes Exam Narrative Exam Narrative: Vitals: Normal. Const: WDWN female in NAD. HEENT: NC/AT. Normal facial exam. Eyes: Normal conjunctiva and sclera. Neck: Supple. Trachea midline. Lungs: Normal respiratory effort. Lungs are clear. Cor: RRR without murmur/gallop. Good radial pulses. GI: Soft. NT/ND. No guarding or rebound. Back: No CVAT. Neuro: A+O x 3. CN grossly in tact. Good strength and no focal deficit. Ext: No C/C/E. No deformity or tenderness. Course Vital Signs Temperature 98.1 F 07/26/18 21:20 Pulse 85 07/26/18 21:20 Respiratory Rate 16 07/26/18 21:20 Blood Pressure 135/85 07/26/18 21:20 Pulse Oximetry 98 07/26/18 21:20 Temperature 98.1 F 07/26/18 21:20 Temperature Source Tympanic 07/26/18 21:20 Pulse 85 07/26/18 21:20 Respiratory Rate 16 07/26/18 21:20 Respiratory Effort 07/26/18 21:25 Blood Pressure 135/85 07/26/18 21:20 Blood Pressure Position Sitting 07/26/18 21:20 Pulse Oximetry 98 07/26/18 21:20 Oxygen Delivery Method Room Air 07/26/18 21:20 Oxygen Flow Rate 0 07/26/18 21:20 Pain Level 9 07/26/18 21:20
[2018-07-26 22:23] LABS: Abs Immature Grans 0.02 k/cumm (0.0-0.09); Absolute Basophil Count 0.04 k/cumm (0.0-0.2); Absolute Eosinophil Count 0.22 k/cumm (0.0-0.7); Absolute Lymphocyte Count 2.77 k/cumm (1.2-3.4); Absolute Monocyte Count 0.77 k/cumm (0.11-0.7); Absolute Neutrophil Count 5.08 k/cumm (1.2-6.7); Basophils % 0.4; Eosinophils % 2.5; HGB 14.5 g/dL (12.0-15.5); Immature Grans % 0.2; Lymphocytes % 31.1; Mean Corp. HGB Concentration 34.5 g/dL (32.0-36.0); Mean Corpuscular Hemoglobin 32.7 pg (27.0-33.0); Mean Corpuscular Volume 94.6 fL (80-95); Mean Platelet Volume 10.7 fL (8.0-11.0); Monocytes % 8.7; Neutrophils % 57.1; Platelet Count 211 x1000/uL (130-400); RBC 4.44 m/cumm (4.00-5.20)
[2018-07-26 22:32] LABS: Anion Gap 8.6 mmol/L (3-11); BUN 8 mg/dL (7-18); CO2 25.4 mmol/L (21.0-32.0); Calcium 8.5 mg/dL (8.5-10.1); Chloride 104 mmol/L (98-107); Glucose 98 mg/dL (70-100); Potassium 3.6 mmol/L (3.5-5.1); Sodium 138 mmol/L (136-145)
--- NOTE | 2018-07-26 22:45 | DI.CT_ITS ---
SYMPTOM/DIAGNOSIS: PERSISTENT RIGHT FLANK PAIN ABDOMINAL AND PELVIC CT: 07/26 CT examination of the abdomen and pelvis was performed without contrast administration. Images obtained through the lung bases are unremarkable. Note is made of diffuse low hepatic attenuation consistent with hepatic steatosis. Prior cholecystectomy noted. No biliary dilatation. Unremarkable appearance of the pancreas. Adrenals and kidneys appear normal with no evidence of renal mass, hydronephrosis or nephrolithiasis. No ureteral calcification identified. Urinary bladder is unremarkable in appearance by noncontrast criteria. Abdominal aorta is of normal diameter. No abdominal or pelvic adenopathy seen. No significant abdominal wall hernia seen. AEMT structures appear intact. Appendix is normal. No evidence of diverticulitis or bowel obstruction. There may be a few loops of small bowel in the left upper quadrant with mildly thickened wall, nonspecific. CONCLUSION: Hepatic steatosis. No evidence of urinary tract calcification or obstruction. Normal appearance of the appendix.
--- NOTE | 2018-07-26 22:53 | DI.VRAD_ITS ---
EXAM: CT Abdomen and Pelvis Without Contrast EXAM DATE/TIME: 07/26/2018 10:14 PM CLINICAL HISTORY: 32 years old, female; Prior surgery; Surgery date: 6+ months; Surgery type: Gallbladder; Patient HX: R flank pain, HX of kidney stones TECHNIQUE: Imaging protocol: Axial computed tomography images of the abdomen and pelvis without contrast. Coronal and sagittal reformatted images were created and reviewed. Radiation optimization: All CT scans at this facility use at least one of these dose optimization techniques: automated exposure control; mA and/or kV adjustment per patient size (includes targeted exams where dose is matched to clinical indication); or iterative reconstruction. COMPARISON: CT RENAL COLIC WO CONTRAST 08/28/2017 10:24 PM FINDINGS: ABDOMEN: Liver: Liver is diffusely low-attenuation. Gallbladder and bile ducts: Cholecystectomy. Pancreas: Unremarkable. Spleen: No suspicious lesions. Adrenals: Unremarkable. No suspicious nodule. Kidneys and ureters: Unremarkable. No hydro. No suspicious lesions. Stomach and bowel: Unremarkable. No inflammed or dilated loops. Appendix: Normal appendix. PELVIS: Bladder: Unremarkable as visualized. Reproductive: Unremarkable as visualized. ABDOMEN and PELVIS: Intraperitoneal space: No free air. No significant fluid collection. Bones/joints: No acute fracture. No dislocation. Soft tissues: Unremarkable. Vasculature: Unremarkable. Lymph nodes: Unremarkable. IMPRESSION: Fatty liver. No acute findings. Dictated and Authenticated by: Darvin Acevedo MD. Ordering:BHANU Valadez MD
--- NOTE | 2018-07-26 23:06 | DI.VRAD_ITS ---
Addendum created by Darvin Acevedo MD on 07/26/2018 11:06:41 PM EDT ED doctor suspects right UVJ stone on images and request addendum. There is a 2 mm calcification in the right hemipelvis. It is a phlebolith near the distal ureter but not a ureteral stone. It is unchanged since the comparison study. Initial report created on 07/26/2018 10:53:36 PM EDT EXAM: CT Abdomen and Pelvis Without Contrast EXAM DATE/TIME: 07/26/2018 10:14 PM CLINICAL HISTORY: 32 years old, female; Prior surgery; Surgery date: 6+ months; Surgery type: Gallbladder; Patient HX: R flank pain, HX of kidney stones TECHNIQUE: Imaging protocol: Axial computed tomography images of the abdomen and pelvis without contrast. Coronal and sagittal reformatted images were created and reviewed. Radiation optimization: All CT scans at this facility use at least one of these dose optimization techniques: automated exposure control; mA and/or kV adjustment per patient size (includes targeted exams where dose is matched to clinical indication); or iterative reconstruction. COMPARISON: CT RENAL COLIC WO CONTRAST 08/28/2017 10:24 PM FINDINGS: ABDOMEN: Liver: Liver is diffusely low-attenuation. Gallbladder and bile ducts: Cholecystectomy. Pancreas: Unremarkable. Spleen: No suspicious lesions. Adrenals: Unremarkable. No suspicious nodule. Kidneys and ureters: Unremarkable. No hydro. No suspicious lesions. Stomach and bowel: Unremarkable. No inflammed or dilated loops. Appendix: Normal appendix. PELVIS: Bladder: Unremarkable as visualized. Reproductive: Unremarkable as visualized. ABDOMEN and PELVIS: Intraperitoneal space: No free air. No significant fluid collection. Bones/joints: No acute fracture. No dislocation. Soft tissues: Unremarkable. Vasculature: Unremarkable. Lymph nodes: Unremarkable. IMPRESSION: Fatty liver. No acute findings. Dictated and Authenticated by: Darvin Acevedo MD. Ordering:BHANU Valadez MD
[2018-07-26] MEDS: HYDROcodone 5/Acetaminophen 325 TAB (23:50)
[2018-07-27 00:16] LABS: Bilirubin Negative (Negative); Blood Large (Negative); Clarity Clear; Glucose Negative (Negative); Ketones Negative (Negative); Leukocyte Esterase Negative (Negative); Nitrite Negative (Negative); Specific Gravity 1.015 (1.005-1.025); Urobilinogen 0.2 EU/dL (Up TO 0.2)
[2018-07-27 00:20] LABS: C & S Indicated? No/Sq. Contamination
[2018-07-27 00:32] VITALS: BP 127/76; PULSE 67; RESP 16; O2SAT 98
[2018-07-27 00:57] VITALS: BP 127/76; PULSE 67; RESP 16; O2SAT 98
== END 2018-07-27 00:47 | disposition home or self-care (01) ==
PROVIDERS: Emergency Provider Emergency Medicine; PCP Internal Medicine
DX: N20.1 Calculus of ureter (principal); R11.0 Nausea; R31.9 Hematuria, unspecified; Z87.891 Personal history of nicotine dependence
CPT/HCPCS: 36415; 80048; 96365; 96375; 99284; 74176; 81003; 81015; 85025

== ENCOUNTER 2018-07-31 20:29 | Emergency (ER) | payer MEDICAID, SELFPAY ==
[2018-07-31 20:35] VITALS: BP 153/66; PULSE 77; RESP 20; TEMP 36.6; O2SAT 97
[2018-07-31 21:05] LABS: Bilirubin Negative (Negative); Blood Large (Negative); Clarity Clear; Glucose Negative (Negative); Ketones Trace mg/dL (Negative); Leukocyte Esterase Negative (Negative); Nitrite Negative (Negative); Specific Gravity >= 1.030 (1.005-1.025); Urobilinogen 0.2 EU/dL (Up TO 0.2)
[2018-07-31 21:15] LABS: Bacteria Many HPF (Negative); C & S Indicated? No/Sq. Contamination; Casts Negative LPF (Negative); Crystals Negative HPF (Negative); Epithelial Cells Moderate HPF (Negative); Mucus Negative (Negative); RBC >50 (0-2)
[2018-07-31 22:20] LABS: HCG Qual (Urine) Negative
--- NOTE | 2018-07-31 22:25 | ED.GENADUL_ITS ---
Discharge Plan Disposition Patient Disposition: HOME Discharge Details Chief Complaint: Urinary Clinical Impression: Right flank pain, Elevated blood lead level Primary Care Provider: Mary Jo ED Provider: Castro Andre Home Meds and New Rx's Prescriptions: Continued trazodone 100 mg tablet 50 - 100 mg PO HS Qty: 120 RF: 4 sertraline 50 MG tablet 50 mg PO DAILY Qty: 90 RF: 11 promethazine 25 mg tablet 25 mg PO Q8H PRN (Reason: nausea and vomiting) Qty: 30 RF: 0 tamsulosin [Flomax] 0.4 mg capsule 0.4 mg PO DAILY Qty: 14 RF: 0 hydrocodone-acetaminophen 5-325 mg Tablet 1 tab PO Q4H PRN PRNQty: 10 RF: 0 Ibuprofen [Ibuprofen Ib] 200 MG tablet 600 mg PO Q6H PRNQty: 0 RF: 0 Discharge Instructions Instructions: Hypertension (ED), Flank Pain (ED) Additional Instructions: Please take ibuprofen 600mg every 6 hours for the next 1 week. Please contact your primary care physician to arrange follow-up. Be sure to discuss your elevated blood pressure. Please follow-up with urology. Return to the ER for any worsening or new concerning symptoms. Referrals: Mary Jo MD [Primary Care Provider] - Medical Decision Making 10:10p --32-year-old female with history of renal colic in the past here with chief complaint of right flank pain with associated hematuria. She does have some right CVA tenderness noted. Abdominal exam benign. CT of the abdomen and pelvis performed on 07/26/2018 report reviewed: Radiology noted hepatic steatosis with no evidence of urinary tract calcification or obstruction and normal appearance of the appendix. Urinalysis was reviewed: 10-20 red blood cells noted, 5-10 white blood cells noted. Patient has no dysuria, increased urinary frequency, or sense of urgency. I do not believe she has a urinary tract infection. It is not clear to me that patient's symptoms are related to a renal calculus as there was none present on this recent CT. Pain may be related to prior scar tissue as she has had a renal stent in the past. I am also concerned about potential injury related to recent stone passage. I think more regular use of NSAIDs are indicated. Opioids are not indicated. Patient given tylenol in ED. Patient advised to take another dose of ibuprofen at midnight. 10:52 --labs reviewed and creatinine normal. I will ask care management to assist in arranging hopefully more timely follow- up with urology. I reviewed dosing of ibuprofen and tylenol with the patient and her boyfriend. I explained that continued use of vicodin was not indicated. Offered lidocaine patch and patient declined. Patient was informed of elevated blood pressure today. She notes she has not had elevated blood pressure in the past. Patient encouraged to follow-up with her doctor for reassessment. Usual and customary discharge instructions were provided. HPI General Mode of arrival: ambulatory . Date/Time Provider Initiated Documentation: 07/31/18 21:05 . Limitations to Documentation: no limitations . Information obtained by: patient . HPI Narrative: 32-year-old female with history of renal stones in the past, presents with chief complaint of right flank pain. Patient notes that she has had right flank pain for the past 3 weeks that has persisted. Pain is described as sharp and localized to right posterior lateral flank. Pain feels like prior kidney stones. Pain is described as moderate to severe and intermittent. She has had associated intermittent nausea. She is also had hematuria. No fevers. Of note, patient was seen here in the emergency department on 07/21/2018 for renal colic and again on 07/26/2018 for renal colic. She had a CT of the abdomen and pelvis on 07/31/2018 which she notes had questionable small stone noted by Dr. Chowdary. Patient has been taking ibuprofen intermittently. She last took 800 mg of ibuprofen around 4 PM. She is also been prescribed multiple rounds of Vicodin. Patient is scheduled with follow-up with urology on August 14 at [facility]. Related Data Home Medications Medication Instructions Recorded Confirmed sertraline 50 mg PO DAILY #90 tab-cap 10/02/17 07/31/18 trazodone 100 mg tablet 50 - 100 mg PO HS #120 tab-cap 03/26/18 07/31/18 Ibuprofen [Ibuprofen Ib] 600 mg PO Q6H PRN #0 07/12/18 07/31/18 promethazine 25 mg tablet 25 mg PO Q8H PRN #30 tab 07/12/18 07/31/18 tamsulosin [Flomax] 0.4 mg PO DAILY #14 cap 07/21/18 07/31/18 hydrocodone-acetaminophen 1 tab PO Q4H PRN PRN #10 tab 07/27/18 07/31/18 Previous Rx's Medication Instructions Recorded sertraline 50 mg PO DAILY #90 tab-cap 10/02/17 trazodone 100 mg tablet 50 - 100 mg PO HS #120 tab-cap 03/26/18 Ibuprofen [Ibuprofen Ib] 600 mg PO Q6H PRN #0 07/12/18 promethazine 25 mg tablet 25 mg PO Q8H PRN #30 tab 07/12/18 tamsulosin [Flomax] 0.4 mg PO DAILY #14 cap 07/21/18 hydrocodone-acetaminophen 1 tab PO Q4H PRN PRN #10 tab 07/27/18 Allergies Allergy/AdvReac Type Severity Reaction Status Date / Time cephalexin [Cephalexin] AdvReac Severe Abdominal Unverified 07/31/18 20:37 Cramps sulfamethoxazole AdvReac Severe Nausea and Unverified 07/31/18 20:37 [From Bactrim] vomiting trimethoprim [From Bactrim] AdvReac Severe Nausea and Unverified 07/31/18 20:37 vomiting vancomycin AdvReac Severe diarrhea, Unverified 07/31/18 20:37 redness Cephalosporins AdvReac Intermediate Diarrhea Unverified 07/31/18 20:37 codeine phosphate AdvReac Intermediate Vomiting Unverified 07/31/18 20:37 [From Tylenol-Codeine #3] ketorolac AdvReac Intermediate Cramping/vo Unverified 07/31/18 20:37 mitting oxycodone AdvReac Intermediate Nausea/vomi Unverified 07/31/18 20:37 tting tramadol AdvReac Intermediate Diarrhea Unverified 07/31/18 20:37 General Stated Complaint: Urinary HALINA: 3 Review of Systems Review of Systems All systems reviewed & are unremarkable except as noted in HPI and below Constitutional Denies fever(s) Gastrointestinal Denies abdominal pain Genitourinary Reports as per HPI [facility] Medical History Anemia Anxiety BMI 32.0-32.9,adult Depression Endometriosis of pelvis (~2009) Hepatic steatosis Hepatomegaly Kidney stones Lymphedema Patellofemoral dysfunction of left knee Vitamin D deficiency Vulvodynia Surgical History Cholecystectomy (12/28/16) Diagnostic Laproscopy (03/03/10) EGD - MAC Extracorporeal shock wave lithotripsy wisdom teeth extraction Family History Mother Diabetes Heart disease Hyperlipidemia Father Colon cancer Heart disease Hyperlipidemia Sister Hyperlipidemia Grandfather Diabetes Grandfather Diabetes Hyperlipidemia Asthma Grandmother Diabetes Personal history of malignant neoplasm Heart disease Hyperlipidemia Grandmother No problems noted. Social History Smoking/Tobacco Use Status: Current every day Tobacco Type: cigarettes Alcohol Intake: current Alcohol Intake frequency: holidays/special occasions only Drug use: Never Substance use type: does not use Do you feel safe at home: Yes Do you feel safe in your relationship?: Yes Exam Const General: cooperative and no acute distress HENMT Mouth: moist mucous membranes Eyes Conjunctivae: normal conjunctivae Sclera: normal sclerae Resp Auscultation: clear to auscultation bilaterally, no rales, no rhonchi and no wheezes Cardio Rate: regular rate and not tachycardic Rhythm: regular rhythm GI Palpation: soft, not firm, no guarding, no masses, not rigid and nontender General: CVA tenderness on the right Back/Spine/Pelvis Back: No mass, No erythema, No warmth, No ecchymosis and other (no rash) Skin General skin exam: no rashes or lesions noted Neuro General: alert, awake and tone normal Extrem General: no edema Psych Speech and Movement: speech and movement normal Course Vital Signs Temperature 36.6 C 07/31/18 20:35 Pulse 77 07/31/18 20:35 Respiratory Rate 20 07/31/18 20:35 Blood Pressure 153/66 H 07/31/18 20:35 Pulse Oximetry 97 07/31/18 20:35 Temperature 36.6 C 07/31/18 20:35 Temperature Source Skin 07/31/18 20:35 Pulse 77 07/31/18 20:35 Respiratory Rate 20 07/31/18 20:35 Respiratory Effort Non-Labored 07/31/18 20:38 Blood Pressure 153/66 H 07/31/18 20:35 Blood Pressure Position Sitting 05/14/19 20:35 Pulse Oximetry 97 07/31/18 20:35 Oxygen Delivery Method Room Air 07/31/18 20:35 Oxygen Flow Rate 0 07/31/18 20:35 Pain Level 10 07/31/18 20:35 Comment Hydrocodone this AM- last pill she had 07/31/18 20:35 Lab/Test Results Lab/Test Results: Laboratory Tests Range/Units 07/31/18 20:40 Urine Color (Yellow) Yellow Urine Clarity Clear Urine pH (5-8) 6.0 Ur Specific [place] (1.005-1.025) >= 1.030 H Urine Protein (Negative) mg/dL Negative Urine Ketones (Negative) mg/dL Trace H Urine Blood (Negative) Large H Urine Nitrite (Negative) Negative Urine Bilirubin (Negative) Negative Urine Urobilinogen (Up TO 0.2) EU/dL 0.2 Ur Leukocyte Esterase (Negative) Negative Urine RBC (0-2) >50 H Urine WBC (0-5) HPF 3-5 Ur Epithelial Cells (Negative) HPF Moderate Urine Crystals (Negative) HPF Negative Urine Bacteria (Negative) HPF Many Urine Casts (Negative) LPF Negative Urine Mucus (Negative) Negative Ur Culture Indicated? No/sq. contamination Urine Glucose (Negative) mg/dL Negative
[2018-07-31 22:29] LABS: ALT 52 U/L (12-78); AST 18 U/L (15-37); Albumin 3.3 g/dL (3.4-5.0); Alkaline Phosphatase 79 U/L (46-116); Anion Gap 7.4 mmol/L (3-11); BUN 9 mg/dL (7-18); Bilirubin, Total 0.1 mg/dL (0.2-1.0); CO2 26.6 mmol/L (21.0-32.0); CREATININE 0.85 mg/dL (0.55-1.02); Calcium 8.2 mg/dL (8.5-10.1); Chloride 106 mmol/L (98-107); Glucose 92 mg/dL (70-100); Potassium 3.9 mmol/L (3.5-5.1); Sodium 140 mmol/L (136-145); Total Protein 6.3 g/dL (6.4-8.2)
[2018-07-31] MEDS: Acetaminophen 325 MG TAB 650 MG PO (23:16)
[2018-07-31 23:19] VITALS: BP 131/75; PULSE 61; RESP 18; TEMP 36.8; O2SAT 98
--- NOTE | 2018-08-01 08:14 | PDOC.ERCMPRO ---
Care Management Progress Note 08/01-Dr. Mirna Andre requested assistance with an urology f/u within a week for right flank pain/prior history of kidney stones. Referral faxed to urology this am.
== END 2018-07-31 23:19 | disposition home or self-care (01) ==
PROVIDERS: Emergency Provider Student in an Organized Health Care Education/Training Program; PCP Internal Medicine
DX: R10.9 Unspecified abdominal pain (principal); R31.9 Hematuria, unspecified; R78.71 Abnormal lead level in blood
CPT/HCPCS: 36415; 80053; 99283; 81003; 81015; 81025

== ENCOUNTER 2018-08-02 18:53 | Emergency (ER) | payer MEDICAID, SELFPAY ==
--- NOTE | 2018-08-02 19:07 | NUR.NOTE ---
1700 pt cut his knee in a mud pit. washed by parent in shower at home 4-5 cm long well approximated minimal bleeding no complaint of pain
[2018-08-02 19:09] VITALS: PULSE 76; RESP 16; TEMP 36.5; O2SAT 99
[2018-08-02 19:10] VITALS: BP 125/85; PULSE 89; RESP 20; TEMP 37.1; O2SAT 100
--- NOTE | 2018-08-02 19:32 | ED.GENADUL_ITS ---
Discharge Plan Disposition Patient Disposition: HOME Condition: Good Discharge Details Chief Complaint: Urinary Clinical Impression: Right flank pain, Hematuria, UTI (urinary tract infection) Primary Care Provider: Mary Jo ED Provider: Rory Chowdary [place] Meds and New Rx's Prescriptions: New phenazopyridine [Pyridium] 100 mg tablet 100 mg PO TID Qty: 9 RF: 0 ciprofloxacin [Cipro] 500 mg/5 mL suspension,microcapsule recon 500 mg PO BID Qty: 70 RF: 0 Continued trazodone 100 mg tablet 50 - 100 mg PO HS Qty: 120 RF: 4 sertraline 50 MG tablet 50 mg PO DAILY Qty: 90 RF: 11 promethazine 25 mg tablet 25 mg PO Q8H PRN (Reason: nausea and vomiting) Qty: 30 RF: 0 Ibuprofen [Ibuprofen Ib] 200 MG tablet 600 mg PO Q6H PRNQty: 0 RF: 0 Discontinued tamsulosin [Flomax] 0.4 mg capsule 0.4 mg PO DAILY Qty: 14 RF: 0 hydrocodone-acetaminophen 5-325 mg Tablet 1 tab PO Q4H PRN PRNQty: 10 RF: 0 Discharge Instructions Additional Instructions: At this point there is no need for further imaging in the ED. Urology does agree that you will need scoping. Urology also agrees with treating for UTI. Would avoid narcotics at this point. Continue alternating ibuprofen and acetaminophen as before. Use Pyridium for the next few days to help with urinary symptoms. Take antibiotic as directed. Try to hold off on your trazodone but if you need it please use it. Phenergan or ondansetron for nausea and vomiting. Stay hydrated. Follow-up with primary care next week to be sure urine cleared the infection. Follow-up with urology as planned. You could try contacting [facility] to see if they have the ability to see you any sooner. Return to ED if you develop fevers, persistent vomiting, new or worsening pain. Referrals: Mary Jo MD [Primary Care Provider] - Medical Decision Making <Amy Osborn DO - Last Filed: 08/02/18 19:54> 32-year-old female with history of renal colic, anxiety, depression who presents with chronic intermittent right flank pain, hematuria, dysuria for 1 month, and oliguria today. This is the fifth visit to the emergency department within the past month for abdominal and flank pain complaints. She is allergic to tramadol, Toradol and states that morphine works for her pain and was sent home with Vicodin on a previous visit which has helped her pain. She feels like her symptoms are due to renal colic that has not passed. Her last abdominal CT on 07/26/2018 noted hepatic steatosis. No evidence of urinary tract calcification or obstruction. Normal appearance of the appendix. Vitals within normal limits. Afebrile. Patient appears nontoxic. Abdomen soft and nontender. No CVA tenderness. No rash. Bladder scan done at bedside and noted 85 mL. Patient has had multiple CTs in the past and to refrain from additional radiation exposure, will check screening labs and urinalysis, test, and give fluids. We will hold on narcotics at this time. 1999 --Case endorsed to Dr. Chowdary to follow-up on labs and final disposition. <Rory Chowdary MD - Last Filed: 08/02/18 23:02> Patient known to me from previous visits. I reviewed her other visits. I reviewed her CT scan done previously with the final read. I reviewed her laboratory studies. At this point she continues to have urinary symptoms with flank pain with persistent hematuria which is now gross hematuria. Previous UAs have not suggested infection but macario has white cells and bacteria in addition to blood. She endorses chills but no fever. She continues to have no fever or white count here. I am inclined to treat for UTI. We will also try Pyridium to help with some of her symptoms. Case discussed with urology at [facility]. I reviewed her visit, labs, imaging. At this point recommend no further imaging in the department. He does agree that patient needs urology follow-up and cystoscopy/ureteroscopy. Would treat for UTI. Does not think [facility] clinic can get her in any sooner than the . Discussed calling [facility] urology to see if they have availability to see sooner. Patient given dose of Ceftriaxone. Will not continue narcotic pain medication at this point. Alternate ibuprofen and acetaminophen as before. Use Pyridium for the next few days. Will start Cipro for 1 week. Follow-up with primary care next week to be sure infection is clearing. Follow-up with urology next available. Return to ED for fever, vomiting, new or worsening pain. No QT prolongation on EKG tonight. Patient will try not to use trazodone unless needed while on Cipro. Medical Records Medical records reviewed: Yes I reviewed the patient's medical records. Lab Data Lab results reviewed: Yes I reviewed the patient's lab results. 08/02/18 19:30 Urine - Reflex from Ua Urine Culture - Pending Laboratory Tests Range/Units 08/02/18 08/02/18 08/02/18 19:30 20:15 20:15 WBC (4.4-10.8) k/cumm 7.58 RBC (4.00-5.20) m/cumm 4.38 Hgb (12.0-15.5) g/dL 14.6 Hct (36.0-46.0) % 41.6 MCV (80-95) fL 95.0 MCH (27.0-33.0) pg 33.3 H MCHC (32.0-36.0) g/dL 35.1 RDW (11.7-14.6) % 11.8 Plt Count (130-400) x1000/uL 203 MPV (8.0-11.0) fL 10.4 Immature Gran % 0.3 Neutrophils % 60.3 Lymphocytes % 30.7 Monocytes % 5.8 Eosinophils % 2.5 Basophils % 0.4 Absolute Neutrophils (1.2-6.7) k/cumm 4.57 Absolute Lymphocytes (1.2-3.4) k/cumm 2.33 Absolute Monocytes (0.11-0.7) k/cumm 0.44 Absolute Eosinophils (0.0-0.7) k/cumm 0.19 Absolute Basophils (0.0-0.2) k/cumm 0.03 Sodium (136-145) mmol/L 142 Potassium (3.5-5.1) mmol/L 3.7 Chloride (98-107) mmol/L 104 Carbon Dioxide (21.0-32.0) mmol/L 27.7 Anion Gap (3-11) mmol/L 10.3 BUN (7-18) mg/dL 8 Creatinine (0.55-1.02) mg/dL 0.77 Estimated GFR/1.73 m2 (mL/min/1.73m2) >= 60.00 Glucose (70-100) mg/dL 109 H Calcium (8.5-10.1) mg/dL 8.3 L Total Bilirubin (0.2-1.0) mg/dL 0.2 AST (15-37) U/L 19 ALT (12-78) U/L 51 Alkaline Phosphatase (46-116) U/L 92 Total Protein (6.4-8.2) g/dL 7.0 Albumin (3.4-5.0) g/dL 3.9 Urine Color (Yellow) Red Urine Clarity Cloudy Urine pH (5-8) 6.0 Ur Specific [place] (1.005-1.025) >= 1.030 H Urine Protein (Negative) mg/dL 30 H Urine Ketones (Negative) mg/dL Negative Urine Blood (Negative) Large H Urine Nitrite (Negative) Negative Urine Bilirubin (Negative) Negative Urine Urobilinogen (Up TO 0.2) EU/dL 1.0 H Ur Leukocyte Esterase (Negative) Negative Urine RBC (0-2) >50 H Urine WBC (0-5) HPF >50 Ur Epithelial Cells Not Applicable Urine Crystals Not Applicable Urine Bacteria (Negative) HPF Many Urine Mucus Not Applicable Ur Culture Indicated? Yes Urine Glucose (Negative) mg/dL Negative ECG Data Attestation: I personally reviewed and interpreted this ECG (s) as follows: Prior ECG tracings: not available for review Interpretation: Normal sinus rhythm at 69. Normal axis and intervals. Normal QT segment. No acute ST changes. HPI <Amy Osborn, - Last Filed: 08/02/18 19:54> General Mode of arrival: ambulatory . Date/Time Provider Initiated Documentation: 08/02/18 18:53 . Limitations to Documentation: no limitations . Information obtained by: patient . HPI Narrative: Patient a 32-year-old female with a history of kidney stones, anxiety, depression, anemia, cholecystectomy who presents to the ED with a complaint of intermittent right flank pain, hematuria, dysuria for the past month. Patient has been seen here 4 times in the past month for abdominal and flank pain related complaints. Patient describes her pain as intermittent, dull, aching and occasionally stabbing. She states the pain is in her right flank without radiation. She states she has the pain a few times weekly. She states the difference today is that she has had decreased urination and feels that she cannot pee. She admits to intermittent nausea and vomiting and states she vomited 4 times today. Temp 100 this morning. Denies any abdominal pain. Related Data Home Medications Medication Instructions Recorded Confirmed sertraline 50 mg PO DAILY #90 tab-cap 18 07/31/18 trazodone 100 mg tablet 50 - 100 mg PO HS #120 tab-cap 03/26/18 07/31/18 Ibuprofen [Ibuprofen Ib] 600 mg PO Q6H PRN #0 07/12/18 07/31/18 promethazine 25 mg tablet 25 mg PO Q8H PRN #30 tab 07/12/18 07/31/18 ciprofloxacin [Cipro] 500 mg PO BID #70 ml 08/02/18 phenazopyridine [Pyridium] 100 mg PO TID #9 tab 08/02/18 Previous Rx's Medication Instructions Recorded sertraline 50 mg PO DAILY #90 tab-cap 10/02/17 trazodone 100 mg tablet 50 - 100 mg PO HS #120 tab-cap 03/26/18 Ibuprofen [Ibuprofen Ib] 600 mg PO Q6H PRN #0 07/12/18 promethazine 25 mg tablet 25 mg PO Q8H PRN #30 tab 07/12/18 ciprofloxacin [Cipro] 500 mg PO BID #70 ml 08/02/18 phenazopyridine [Pyridium] 100 mg PO TID #9 tab 08/02/18 Allergies Allergy/AdvReac Type Severity Reaction Status Date / Time cephalexin [Cephalexin] AdvReac Severe Abdominal Unverified 08/02/18 19:14 Cramps sulfamethoxazole AdvReac Severe Nausea and Unverified 08/02/18 19:14 [From Bactrim] vomiting trimethoprim [From Bactrim] AdvReac Severe Nausea and Unverified 08/02/18 19:14 vomiting vancomycin AdvReac Severe diarrhea, Unverified 08/02/18 19:14 redness Cephalosporins AdvReac Intermediate Diarrhea Unverified 08/02/18 19:14 codeine phosphate AdvReac Intermediate Vomiting Unverified 08/02/18 19:14 [From Tylenol-Codeine #3] ketorolac AdvReac Intermediate Cramping/vo Unverified 08/02/18 19:14 mitting oxycodone AdvReac Intermediate Nausea/vomi Unverified 08/02/18 19:14 tting tramadol AdvReac Intermediate Diarrhea Unverified 08/02/18 19:14 General Stated Complaint: Urinary HALINA: 4 Review of Systems <Amy Osborn DO - Last Filed: 08/02/18 19:54> Review of Systems All systems reviewed & are unremarkable except as noted in HPI and below Constitutional Reports as per HPI, Denies chills and Denies fever(s) Eyes Denies blurry vision ENT Denies dizziness, Denies sore throat and Denies throat swelling Cardiovascular Denies chest pain and Denies dyspnea Respiratory Denies cough and Denies dyspnea Gastrointestinal Denies abdominal pain, Denies diarrhea and Denies vomiting Genitourinary Reports hematuria, Reports difficulty voiding, Reports dysuria and Reports urinary hesitancy Musculoskeletal Denies back pain and Denies numbness Integumentary/Breasts Denies lesions and Denies rash Neurologic Denies dizziness, Denies focal weakness and Denies numbness Allergic/Immunologic Denies throat swelling PFSH <Amy Osborn DO - Last Filed: 08/02/18 19:54> Medical History Anemia Anxiety BMI 32.0-32.9,adult Depression Endometriosis of pelvis (~2009) Hepatic steatosis Hepatomegaly Kidney stones Lymphedema Patellofemoral dysfunction of left knee Vitamin D deficiency Vulvodynia Surgical History Cholecystectomy (12/28/16) Diagnostic Laproscopy (03/03/10) EGD - MAC Extracorporeal shock wave lithotripsy wisdom teeth extraction Family History Mother Diabetes Heart disease Hyperlipidemia Father Colon cancer Heart disease Hyperlipidemia Sister Hyperlipidemia Grandfather Diabetes Grandfather Diabetes Hyperlipidemia Asthma Grandmother Diabetes Personal history of malignant neoplasm Heart disease Hyperlipidemia Grandmother No problems noted. Social History Smoking/Tobacco Use Status: Current every day Tobacco Type: cigarettes Alcohol Intake: current Alcohol Intake frequency: holidays/special occasions only Drug use: Never Substance use type: does not use Do you feel safe at home: Yes Do you feel safe in your relationship?: Yes Exam <DO Mayur Nieves Last Filed: 08/02/18 19:54> Const General: cooperative, healthy appearing and no acute distress HENMT Head: normal to inspection Face and sinus: normal facial exam Eyes General: appearance normal, both eyes and all related structures EOM: EOM intact bilaterally Neck Neck: normal visual inspection and No submandibular swelling Lymphatic: no lymphadenopathy noted Chest Chest: normal inspection of the chest and no tenderness Resp Effort & Inspection: normal respiratory effort and able to speak in complete sentences Auscultation: clear to auscultation bilaterally Cardio Rate: regular rate Rhythm: regular rhythm GI Inspection: normal to inspection Palpation: soft, not firm, not rigid and nontender Auscultation: normal bowel sounds Back/Spine/Pelvis Thoracic/Lumbar Spine: thoracic and lumbar spine normal to inspection Skin General skin exam: no rashes or lesions noted Neuro General: alert, awake and oriented x3 Cognition: normal cognition Speech: speech normal Motor: muscle tone normal throughout Sensory Exam: no sensory deficits noted Extrem General: normal to inspection, full ROM and no edema Psych Appearance: grossly normal Mental Status: mental status grossly normal Speech and Movement: speech and movement normal Affect: normal affect Course <DO Mayur Nieves Last Filed: 08/02/18 19:54> Vital Signs Temperature 97.7 F 08/02/18 19:09 Pulse 76 08/02/18 19:09 Respiratory Rate 16 08/02/18 19:09 Pulse Oximetry 99 08/02/18 19:09 Temperature 98.8 F 08/02/18 19:10 Temperature Source Temporal Artery Scan 08/02/18 19:10 Pulse 89 08/02/18 19:10 Respiratory Rate 20 08/02/18 19:10 Respiratory Effort 08/02/18 19:10 Blood Pressure 125/85 08/02/18 19:10 Blood Pressure Position Sitting 08/02/18 19:10 Pulse Oximetry 100 08/02/18 19:10 Oxygen Delivery Method Room Air 08/02/18 19:10 Oxygen Flow Rate 0 08/02/18 19:10 Pain Level 9 08/02/18 19:14 Sign Out <DO Mayur Nieves Last Filed: 08/02/18 19:54> Sign Out Data: Sign Out Comment: Follow-up on labs and final disposition. Last updated by Amy Osborn DO at 08/02/18 19:55
[2018-08-02 19:44] LABS: Bilirubin Negative (Negative); Blood Large (Negative); Clarity Cloudy; Glucose Negative (Negative); Ketones Negative (Negative); Leukocyte Esterase Negative (Negative); Nitrite Negative (Negative); Specific Gravity >= 1.030 (1.005-1.025)
[2018-08-02 19:54] LABS: WBC >50 HPF (0-5)
[2018-08-02 19:59] LABS: Bacteria Many HPF (Negative); C & S Indicated? Yes; RBC >50 (0-2)
[2018-08-02] MEDS: Normal Saline 1,000 ML 1000 ML IV (20:15)
[2018-08-02 20:21] LABS: Abs Immature Grans 0.02 k/cumm (0.0-0.09); Absolute Basophil Count 0.03 k/cumm (0.0-0.2); Absolute Eosinophil Count 0.19 k/cumm (0.0-0.7); Absolute Lymphocyte Count 2.33 k/cumm (1.2-3.4); Absolute Monocyte Count 0.44 k/cumm (0.11-0.7); Absolute Neutrophil Count 4.57 k/cumm (1.2-6.7); Basophils % 0.4; Eosinophils % 2.5; HCT 41.6 % (36.0-46.0); HGB 14.6 g/dL (12.0-15.5); Immature Grans % 0.3; Lymphocytes % 30.7; Mean Corp. HGB Concentration 35.1 g/dL (32.0-36.0); Mean Corpuscular Hemoglobin 33.3 pg (27.0-33.0); Mean Platelet Volume 10.4 fL (8.0-11.0); Monocytes % 5.8; Neutrophils % 60.3; Platelet Count 203 x1000/uL (130-400); RBC 4.38 m/cumm (4.00-5.20); RBC Distribution Width 11.8 % (11.7-14.6); White Blood Cell Count 7.58 k/cumm (4.4-10.8)
[2018-08-02 20:36] LABS: ALT 51 U/L (12-78); AST 19 U/L (15-37); Albumin 3.9 g/dL (3.4-5.0); Alkaline Phosphatase 92 U/L (46-116); Anion Gap 10.3 mmol/L (3-11); BUN 8 mg/dL (7-18); Bilirubin, Total 0.2 mg/dL (0.2-1.0); CO2 27.7 mmol/L (21.0-32.0); CREATININE 0.77 mg/dL (0.55-1.02); Calcium 8.3 mg/dL (8.5-10.1); Chloride 104 mmol/L (98-107); Glucose 109 mg/dL (70-100); Potassium 3.7 mmol/L (3.5-5.1); Sodium 142 mmol/L (136-145)
[2018-08-02] MEDS: Ibuprofen 600 MG TAB PO (21:26)
[2018-08-02] MEDS: Phenazopyridine 100 MG TAB PO (21:26)
[2018-08-02] MEDS: cefTRIAXone 1 GM/50 ML BAG IVPB (21:51)
[2018-08-02 23:16] VITALS: BP 122/78; PULSE 84; RESP 20; O2SAT 100
== END 2018-08-02 23:08 | disposition home or self-care (01) ==
PROVIDERS: Physician Assistant; Emergency Provider Emergency Medicine; PCP Internal Medicine
DX: N39.0 Urinary tract infection, site not specified (principal); R31.9 Hematuria, unspecified; F41.9 Anxiety disorder, unspecified
CPT/HCPCS: 36415; 80053; 93005; 96361; 96365; 96367; 99284; 81003; 81015; 85025; 87086; 93010; J0696

== ENCOUNTER 2018-08-12 21:41 | Emergency (ER) | payer MEDICAID, SELFPAY ==
--- NOTE | 2018-08-12 00:05 | DI.CT_ITS ---
SYMPTOMS/DIAGNOSIS: RT FLANK PAIN, HX OF STONES RENAL COLIC CT: Comparison is 07/26/18. The lung bases show no acute abnormality. There is diffuse decreased attenuation of the liver consistent with fatty infiltration. No discrete hepatic mass is seen. The patient is status post cholecystectomy. No biliary ductal dilatation is present. Lack of IV contrast does limit elevation of the abdominal and pelvic organs. The unenhanced pancreas, spleen and adrenal glands are unremarkable. There is no evidence of nephrolithiasis or hydronephrosis. The urinary bladder is intact. The reproductive organs are unremarkable. There is a trace amount of free fluid in the pelvis which is likely physiologic. No significant abdominal or pelvic adenopathy or pneumoperitoneum is seen. The aorta is of normal caliber. The bowel shows no evidence of obstruction or inflammation. There is a normal appendix present. No acute osseous abnormality is identified. IMPRESSION: 1. Hepatic steatosis. 2. No evidence of nephrolithiasis or obstructive uropathy.
[2018-08-12 22:03] VITALS: BP 127/81; PULSE 77; RESP 18; TEMP 36.7; O2SAT 97
--- NOTE | 2018-08-12 22:48 | ED.GENADUL_ITS ---
Discharge Plan Disposition Patient Disposition: HOME Condition: Improving Discharge Details Chief Complaint: FlankPain Clinical Impression: Loin pain hematuria syndrome Primary Care Provider: Mary Jo ED Provider: Magno Leon Home Meds and New Rx's Prescriptions: Continued trazodone 100 mg tablet 50 - 100 mg PO HS Qty: 120 RF: 4 sertraline 50 MG tablet 50 mg PO DAILY Qty: 90 RF: 11 promethazine 25 mg tablet 25 mg PO Q8H PRN (Reason: nausea and vomiting) Qty: 30 RF: 0 Ibuprofen [Ibuprofen Ib] 200 MG tablet 600 mg PO Q6H PRNQty: 0 RF: 0 Discharge Instructions Instructions: Hematuria (ED) Additional Instructions: May use the provided hydrocodone sparingly if needed for severe pain. Please follow-up with urology on Monday as planned. Continue your regular medications. Medical Decision Making 32-year-old female with history of renal colic, follow-up established for this coming Monday at [facility]. She presents with day 3 of right-sided flank pain with mild dysuria that she describes increased frequency of urine. States that she recently finished a course of ciprofloxacin She is afebrile and well-appearing with normal vital signs. Patient given analgesic with some improvement. Is referred for laboratory and CT scan. Urinalysis with hematuria predominantly and few mixed cells, negative nitrites and no significant evidence of infection. Laboratories unremarkable. Patient has follow-up on Monday with urology. She is stable for discharge to home. She may have passed a small stone and had persistent spasms. Therefore, she will be given small number of oral analgesic for home Lab Data Lab results reviewed: Yes I reviewed the patient's lab results. Laboratory Results - last 24 hr 08/12/18 08/12/18 22:53 22:55 WBC 6.98 RBC 4.34 Hgb 14.2 Hct 41.5 MCV 95.6 H MCH 32.7 MCHC 34.2 RDW 11.9 Plt Count 192 MPV 11.2 H Immature Gran % 0.3 Neutrophils % 57.3 Lymphocytes % 31.4 Monocytes % 8.2 Eosinophils % 2.4 Basophils % 0.4 Absolute Neutrophils 4.00 Absolute Lymphocytes 2.19 Absolute Monocytes 0.57 Absolute Eosinophils 0.17 Absolute Basophils 0.03 Urine Color Yellow Urine Clarity Clear Urine pH 7.5 Ur Specific [place] 1.025 Urine Protein Trace H Urine Ketones Negative Urine Blood Large H Urine Nitrite Negative Urine Bilirubin Negative Urine Urobilinogen 1.0 H Ur Leukocyte Esterase Negative Urine RBC >50 H Urine WBC 0-2 Ur Epithelial Cells Moderate Urine Crystals Negative Urine Bacteria Rare Urine Casts Negative Urine Mucus Negative Ur Culture Indicated? No/sq. contamination Urine Glucose Negative HPI General Mode of arrival: ambulatory . Date/Time Provider Initiated Documentation: 08/12/18 22:03 . Limitations to Documentation: no limitations . Information obtained by: patient and family . History of Present Illness 32 year old F presents to the emergency department with the chief complaint of Right flank pain since th, described as moderate and similar to prior episodes, Quality is described as constant, and is localized to the back and right. Patient reports no radiation. Patient started experiencing this hour(s) and it has been constant. No relieving factors improve symptom(s), No exacerbating factors reported . Patient notes no other symptoms.. Patient did receive the following treatments prior to arrival, none Related Data Home Medications Medication Instructions Recorded Confirmed sertraline 50 mg PO DAILY #90 tab-cap 10/02/17 08/12/18 trazodone 100 mg tablet 50 - 100 mg PO HS #120 tab-cap 03/26/18 08/12/18 Ibuprofen [Ibuprofen Ib] 600 mg PO Q6H PRN #0 07/12/18 08/12/18 promethazine 25 mg tablet 25 mg PO Q8H PRN #30 tab 07/12/18 08/12/18 Previous Rx's Medication Instructions Recorded sertraline 50 mg PO DAILY #90 tab-cap 10/02/17 trazodone 100 mg tablet 50 - 100 mg PO HS #120 tab-cap 03/26/18 Ibuprofen [Ibuprofen Ib] 600 mg PO Q6H PRN #0 07/12/18 promethazine 25 mg tablet 25 mg PO Q8H PRN #30 tab 07/12/18 Allergies Allergy/AdvReac Type Severity Reaction Status Date / Time cephalexin [Cephalexin] AdvReac Severe Abdominal Verified 08/12/18 22:08 Cramps sulfamethoxazole AdvReac Severe Nausea and Verified 08/12/18 22:08 [From Bactrim] vomiting trimethoprim [From Bactrim] AdvReac Severe Nausea and Verified 08/12/18 22:08 vomiting vancomycin AdvReac Severe diarrhea, Verified 08/12/18 22:08 redness Cephalosporins AdvReac Intermediate Diarrhea Verified 08/12/18 22:08 codeine phosphate AdvReac Intermediate Vomiting Verified 08/12/18 22:08 [From Tylenol-Codeine #3] ketorolac AdvReac Intermediate Cramping/vo Verified 08/12/18 22:08 mitting oxycodone AdvReac Intermediate Nausea/vomi Verified 08/12/18 22:08 tting tramadol AdvReac Intermediate Diarrhea Verified 08/12/18 22:08 General Stated Complaint: FlankPain HALINA: 3 Review of Systems Review of Systems 6 systems reviewed and otherwise negative [facility] Medical History Anemia Anxiety BMI 32.0-32.9,adult Depression Endometriosis of pelvis (~2009) Hepatic steatosis Hepatomegaly Kidney stones Lymphedema Patellofemoral dysfunction of left knee Vitamin D deficiency Vulvodynia Surgical History Cholecystectomy (12/28/16) Diagnostic Laproscopy (03/03/10) EGD - MAC Extracorporeal shock wave lithotripsy wisdom teeth extraction Family History Mother Diabetes Heart disease Hyperlipidemia Father Colon cancer Heart disease Hyperlipidemia Sister Hyperlipidemia Grandfather Diabetes Grandfather Diabetes Hyperlipidemia Asthma Grandmother Diabetes Personal history of malignant neoplasm Heart disease Hyperlipidemia Grandmother No problems noted. Social History Smoking/Tobacco Use Status: Current every day Tobacco Type: cigarettes Alcohol Intake: current Alcohol Intake frequency: holidays/special occasions only Drug use: Never Substance use type: does not use Do you feel safe at home: Yes Do you feel safe in your relationship?: Yes Exam Narrative Exam Narrative: GEN: awake, alert, oriented 3. Pleasant, well groomed, interactive. HEAD: Normocephalic, atraumatic ENT: Mucous membranes moist, oropharynx unremarkable, External ear exam unremarkable EYES: PERRL, EOMI NECK: Full ROM, no NENA, no menigismus CHEST/RESP: Nontender, clear to auscultation bilateral, no wheeze/rhonchi/rales CARDIOVASCULAR: RRR, no murmur, rub lynnette. 2+ Rad pulse bilateral ABDOMEN: Soft, nontender, no mass. +Bowel sounds. Right flank tenderness to percussion EXT: Full ROM, no edema, no rash Neuro: Grossly normal neurologic exam, conversant, interactive. Psych: Speech fluent, thoughts congruent, affect normal Course Vital Signs Temperature 36.7 C 08/12/18 22:03 Pulse 77 08/12/18 22:03 Respiratory Rate 18 08/12/18 22:03 Blood Pressure 127/81 08/12/18 22:03 Pulse Oximetry 97 08/12/18 22:03 Temperature 36.7 C 08/12/18 22:03 Temperature Source Skin 08/12/18 22:03 Pulse 77 08/12/18 22:03 Respiratory Rate 18 08/12/18 22:03 Respiratory Effort Non-Labored 08/12/18 22:07 Blood Pressure 127/81 08/12/18 22:03 Blood Pressure Position Sitting 08/12/18 22:03 Pulse Oximetry 97 08/12/18 22:03 Oxygen Delivery Method Room Air 08/12/18 22:03 Oxygen Flow Rate 0 08/12/18 22:03 Pain Level 9 08/12/18 22:10
[2018-08-12] MEDS: HYDROcodone 5/Acetaminophen 325 TAB PO (22:58)
[2018-08-12] MEDS: Normal Saline 1,000 ML 150 ML IV (23:04)
[2018-08-12] MEDS: Ondansetron 4 MG/2 ML VIAL IVP (23:08)
[2018-08-12 23:09] LABS: Bilirubin Negative (Negative); Blood Large (Negative); Clarity Clear; Glucose Negative (Negative); Ketones Negative (Negative); Leukocyte Esterase Negative (Negative); Nitrite Negative (Negative); Specific Gravity 1.025 (1.005-1.025); pH 7.5 (5-8)
[2018-08-12 23:35] LABS: Bacteria Rare HPF (Negative); C & S Indicated? No/Sq. Contamination; Casts Negative LPF (Negative); Crystals Negative HPF (Negative); Epithelial Cells Moderate HPF (Negative); Mucus Negative (Negative); RBC >50 (0-2); WBC 0-2 HPF (0-5)
[2018-08-12 23:43] VITALS: BP 117/72; PULSE 74; RESP 16; TEMP 37.1; O2SAT 95
[2018-08-13 00:14] LABS: Abs Immature Grans 0.02 k/cumm (0.0-0.09); Absolute Basophil Count 0.03 k/cumm (0.0-0.2); Absolute Eosinophil Count 0.17 k/cumm (0.0-0.7); Absolute Lymphocyte Count 2.19 k/cumm (1.2-3.4); Absolute Monocyte Count 0.57 k/cumm (0.11-0.7); Basophils % 0.4; Eosinophils % 2.4; HCT 41.5 % (36.0-46.0); HGB 14.2 g/dL (12.0-15.5); Immature Grans % 0.3; Lymphocytes % 31.4; Mean Corp. HGB Concentration 34.2 g/dL (32.0-36.0); Mean Corpuscular Hemoglobin 32.7 pg (27.0-33.0); Mean Corpuscular Volume 95.6 fL (80-95); Mean Platelet Volume 11.2 fL (8.0-11.0); Monocytes % 8.2; Neutrophils % 57.3; Platelet Count 192 x1000/uL (130-400); RBC 4.34 m/cumm (4.00-5.20); RBC Distribution Width 11.9 % (11.7-14.6); White Blood Cell Count 6.98 k/cumm (4.4-10.8)
--- NOTE | 2018-08-13 00:17 | DI.VRAD_ITS ---
EXAM: CT Abdomen and Pelvis Without Contrast EXAM DATE/TIME: 08/12/2018 10:50 PM CLINICAL HISTORY: 32 years old, female; Prior surgery; Surgery date: 6+ months; Surgery type: Cholecysectomy, lithotripsy; Patient HX: R flank pain, HX of kidney stomes and endometriosis TECHNIQUE: Imaging protocol: Axial computed tomography images of the abdomen and pelvis without contrast. Coronal and sagittal reformatted images were created and reviewed. Radiation optimization: All CT scans at this facility use at least one of these dose optimization techniques: automated exposure control; mA and/or kV adjustment per patient size (includes targeted exams where dose is matched to clinical indication); or iterative reconstruction. COMPARISON: CT renal colic wo 07/26/2018 10:40 PM FINDINGS: ABDOMEN: Liver: The liver is large and diffusely low-attenuation. Gallbladder and bile ducts: Cholecystectomy. Pancreas: Unremarkable. Spleen: No suspicious lesions. Adrenals: Unremarkable. No suspicious nodule. Kidneys and ureters: Unremarkable. No hydro. No suspicious lesions. Stomach and bowel: Unremarkable. No inflammed or dilated loops. Appendix: Normal appendix. PELVIS: Bladder: Unremarkable as visualized. Reproductive: Unremarkable as visualized. ABDOMEN and PELVIS: Intraperitoneal space: No free air. No significant fluid collection. Bones/joints: No acute fracture. No dislocation. Soft tissues: Unremarkable. Vasculature: Unremarkable. Lymph nodes: Unremarkable. IMPRESSION: Large, fatty liver. No renal calculi or hydronephrosis. Dictated and Authenticated by: Darvin Acevedo MD. Ordering:HAWK Kiran MD
[2018-08-13 00:28] LABS: ALT 60 U/L (12-78); AST 22 U/L (15-37); Albumin 3.7 g/dL (3.4-5.0); Alkaline Phosphatase 85 U/L (46-116); Anion Gap 7.2 mmol/L (3-11); BUN 11 mg/dL (7-18); Bilirubin, Total 0.2 mg/dL (0.2-1.0); CO2 26.8 mmol/L (21.0-32.0); CREATININE 0.58 mg/dL (0.55-1.02); Chloride 104 mmol/L (98-107); Glucose 107 mg/dL (70-100); Potassium 3.8 mmol/L (3.5-5.1); Sodium 138 mmol/L (136-145)
[2018-08-13] MEDS: HYDROcodone 5/Acetaminophen 325 TAB PO (00:32)
== END 2018-08-13 00:38 | disposition home or self-care (01) ==
PROVIDERS: Emergency Provider Emergency Medicine; PCP Internal Medicine
DX: R10.11 Right upper quadrant pain (principal); R31.9 Hematuria, unspecified; R30.0 Dysuria
CPT/HCPCS: 36415; 80053; 96361; 96374; 99284; 74176; 81003; 81015; 85025; J2405

== ENCOUNTER 2018-08-18 17:12 | Emergency (ER) | payer MEDICAID, SELFPAY ==
[2018-08-18 17:21] VITALS: BP 128/75; PULSE 82; RESP 20; TEMP 36.8; O2SAT 98
--- NOTE | 2018-08-18 17:57 | ED.GENADUL_ITS ---
Discharge Plan Disposition Patient Disposition: HOME Discharge Details Chief Complaint: Abd Prob Clinical Impression: Chronic right flank pain, Hematuria Primary Care Provider: Mary Jo ED Provider: Irwin Fu Home Meds and New Rx's Prescriptions: No Action trazodone 100 mg tablet 50 - 100 mg PO HS Qty: 120 RF: 4 sertraline 50 MG tablet 50 mg PO DAILY Qty: 90 RF: 11 promethazine 25 mg tablet 25 mg PO Q8H PRN (Reason: nausea and vomiting) Qty: 30 RF: 0 Ibuprofen [Ibuprofen Ib] 200 MG tablet 600 mg PO Q6H PRNQty: 0 RF: 0 Discharge Instructions Instructions: Hematuria (ED) Additional Instructions: Your labs today were significant for blood in your urine. The remainder of your labs were unremarkable. It is very important that you follow-up with urology on August 29 as scheduled. Return should symptoms worsen Referrals: Mary Jo MD [Primary Care Provider] - 3 days Medical Decision Making This is a nontoxic-appearing 32-year-old female presenting to the emergency department with chronic right flank pain in the setting of hematuria. Symptoms today are similar in characteristic however worse in severity. No radiculopathy of symptoms. She has scheduled follow-up with urology with cystoscopy on 08/29/18. Her labs today show normal kidney function. Normal WBC. Her urine is positive for blood however no signs of infection with negative nitrites. She denies any UTI symptoms. Vitals are stable and is without fever. She has no CVA tenderness or abdominal pain on exam. I discussed the nature of her work-up today and the importance of continued urological follow-up. I will provide her a short supply of pain medication along with a Lidoderm patch. Lab Data Lab results narrative: Laboratory Tests Range/Units 08/18/18 08/18/18 08/18/18 17:30 18:10 18:10 WBC (4.4-10.8) k/cumm 6.41 RBC (4.00-5.20) m/cumm 4.13 Hgb (12.0-15.5) g/dL 13.7 Hct (36.0-46.0) % 39.4 MCV (80-95) fL 95.4 H MCH (27.0-33.0) pg 33.2 H MCHC (32.0-36.0) g/dL 34.8 RDW (11.7-14.6) % 11.8 Plt Count (130-400) x1000/uL 183 MPV (8.0-11.0) fL 10.6 Immature Gran % 0.2 Neutrophils % 56.7 Lymphocytes % 34.9 Monocytes % 6.2 Eosinophils % 1.7 Basophils % 0.3 Absolute Neutrophils (1.2-6.7) k/cumm 3.63 Absolute Lymphocytes (1.2-3.4) k/cumm 2.24 Absolute Monocytes (0.11-0.7) k/cumm 0.40 Absolute Eosinophils (0.0-0.7) k/cumm 0.11 Absolute Basophils (0.0-0.2) k/cumm 0.02 Sodium (136-145) mmol/L 141 Potassium (3.5-5.1) mmol/L 3.6 Chloride (98-107) mmol/L 106 Carbon Dioxide (21.0-32.0) mmol/L 25.6 Anion Gap (3-11) mmol/L 9.4 BUN (7-18) mg/dL 10 Creatinine (0.55-1.02) mg/dL 0.78 Estimated GFR/1.73 m2 (mL/min/1.73m2) >= 60.00 Glucose (70-100) mg/dL 147 H Calcium (8.5-10.1) mg/dL 8.5 Total Bilirubin (0.2-1.0) mg/dL 0.1 L AST (15-37) U/L 16 ALT (12-78) U/L 39 Alkaline Phosphatase (46-116) U/L 81 Total Protein (6.4-8.2) g/dL 6.6 Albumin (3.4-5.0) g/dL 3.6 Urine Color (Yellow) Yellow Urine Clarity Clear Urine pH (5-8) 6.0 Ur Specific [place] (1.005-1.025) >= 1.030 H Urine Protein (Negative) mg/dL Trace H Urine Ketones (Negative) mg/dL Trace H Urine Blood (Negative) Large H Urine Nitrite (Negative) Negative Urine Bilirubin (Negative) Negative Urine Urobilinogen (Up TO 0.2) EU/dL 0.2 Ur Leukocyte Esterase (Negative) Negative Urine RBC (0-2) >50 H Urine WBC Not Applicable Ur Epithelial Cells (Negative) HPF Many Urine Crystals (Negative) HPF Negative Urine Bacteria (Negative) HPF Many Urine Casts (Negative) LPF Negative Urine Mucus (Negative) Negative Ur Culture Indicated? No/sq. contamination Urine Glucose (Negative) mg/dL Negative HPI General Date/Time Provider Initiated Documentation: 08/18/18 17:41 . HPI Narrative: Patient is a 32-year-old female presenting to the emergency department with right flank pain over the course of 1 month. She associates blood in her urine with her right flank pain. This is a chronic issue for her with which she is scheduled to see urology on August 29 for a scheduled cystoscopy. She states that her pain today is worse than her baseline pain however similar in its nature and characteristic. She denies any abdominal pain. She states the pain is nonradiating and located to just to the right flank. She denies any dysuria, urinary frequency or urgency. No abdominal cramping, constipation, or diarrhea. She has been taking ibuprofen 800 mg every 8 hours for her pain. Related Data Home Medications Medication Instructions Recorded Confirmed sertraline 50 mg PO DAILY #90 tab-cap 10/02/17 08/18/18 trazodone 100 mg tablet 50 - 100 mg PO HS #120 tab-cap 03/26/18 08/18/18 Ibuprofen [Ibuprofen Ib] 600 mg PO Q6H PRN #0 07/12/18 08/18/18 promethazine 25 mg tablet 25 mg PO Q8H PRN #30 tab 07/12/18 08/18/18 Previous Rx's Medication Instructions Recorded sertraline 50 mg PO DAILY #90 tab-cap 10/02/17 trazodone 100 mg tablet 50 - 100 mg PO HS #120 tab-cap 03/26/18 Ibuprofen [Ibuprofen Ib] 600 mg PO Q6H PRN #0 07/12/18 promethazine 25 mg tablet 25 mg PO Q8H PRN #30 tab 07/12/18 Allergies Allergy/AdvReac Type Severity Reaction Status Date / Time cephalexin [Cephalexin] AdvReac Severe Abdominal Verified 08/18/18 17:23 Cramps sulfamethoxazole AdvReac Severe Nausea and Verified 08/18/18 17:23 [From Bactrim] vomiting trimethoprim [From Bactrim] AdvReac Severe Nausea and Verified 08/18/18 17:23 vomiting vancomycin AdvReac Severe diarrhea, Verified 08/18/18 17:23 redness Cephalosporins AdvReac Intermediate Diarrhea Verified 08/18/18 17:23 codeine phosphate AdvReac Intermediate Vomiting Verified 08/18/18 17:23 [From Tylenol-Codeine #3] ketorolac AdvReac Intermediate Cramping/vo Verified 08/18/18 17:23 mitting oxycodone AdvReac Intermediate Nausea/vomi Verified 08/18/18 17:23 tting tramadol AdvReac Intermediate Diarrhea Verified 08/18/18 17:23 General Stated Complaint: Abd Prob HALINA: 3 Review of Systems Constitutional Denies body ache(s), Denies chills, Denies fever(s), Denies headache(s) and Denies night sweats ENT Denies headache(s) Cardiovascular Denies chest pain and Denies dyspnea Respiratory Denies cough and Denies dyspnea Gastrointestinal Denies abdominal pain, Denies melena, Denies diarrhea, Reports nausea and Denies vomiting Genitourinary Denies abnormal vaginal bleeding, Reports hematuria, Denies urinary frequency, Denies difficulty voiding, Denies dysuria, Denies pelvic pain and Denies urinary urgency Musculoskeletal Denies back pain Integumentary/Breasts Denies rash, Denies skin pain, Denies skin swelling and Denies skin ulcer Neurologic Denies headache(s) Hematologic/Lymphatic Denies easy bleeding and Denies easy bruising PFSH Medical History Anemia Anxiety BMI 32.0-32.9,adult Depression Endometriosis of pelvis (~2009) Hepatic steatosis Hepatomegaly Kidney stones Lymphedema Patellofemoral dysfunction of left knee Vitamin D deficiency Vulvodynia Surgical History Cholecystectomy (12/28/16) Diagnostic Laproscopy (03/03/10) EGD - MAC Extracorporeal shock wave lithotripsy wisdom teeth extraction Family History Mother Diabetes Heart disease Hyperlipidemia Father Colon cancer Heart disease Hyperlipidemia Sister Hyperlipidemia Grandfather Diabetes Grandfather Diabetes Hyperlipidemia Asthma Grandmother Diabetes Personal history of malignant neoplasm Heart disease Hyperlipidemia Grandmother No problems noted. Social History Smoking/Tobacco Use Status: Current every day Tobacco Type: cigarettes Alcohol Intake: current Alcohol Intake frequency: holidays/special occasions only Drug use: Never Substance use type: does not use Do you feel safe at home: Yes Do you feel safe in your relationship?: Yes Exam Const General: cooperative and healthy appearing Nutritional Appearance: average body habitus Orientation: alert, awake and oriented x3 HENMT Head: normal to inspection Ears: hearing grossly normal bilaterally General nose exam: external nose normal Eyes General: appearance normal, both eyes and all related structures Neck Neck: normal visual inspection, full ROM and no lymphadenopathy Chest Chest: normal inspection of the chest Resp Effort & Inspection: normal respiratory effort Auscultation: clear to auscultation bilaterally Cardio Jugular venous pressure: no JVD Palpation: normal PMI Rate: regular rate Rhythm: regular rhythm Heart Sounds: S1 normal and S2 normal Pulses: normal peripheral pulses GI Inspection: normal to inspection Palpation: soft and no hepatosplenomegaly Back/Spine/Pelvis Back: no CVA tenderness and No back tenderness Cervical Spine: normal cervical lordosis Thoracic/Lumbar Spine: thoracic and lumbar spine normal to inspection Skin General skin exam: no rashes or lesions noted Course Vital Signs Temperature 36.8 C 08/18/18 17:21 Pulse 82 08/18/18 17:21 Respiratory Rate 20 08/18/18 17:21 Blood Pressure 128/75 08/18/18 17:21 Pulse Oximetry 98 08/18/18 17:21 Temperature 36.8 C 08/18/18 17:21 Temperature Source Temporal Artery Scan 08/18/18 17:21 Pulse 82 08/18/18 17:21 Respiratory Rate 20 08/18/18 17:21 Respiratory Effort Non-Labored 08/18/18 17:21 Blood Pressure 128/75 08/18/18 17:21 Pulse Oximetry 98 08/18/18 17:21 Oxygen Delivery Method Room Air 08/18/18 17:21 Oxygen Flow Rate 0 08/18/18 17:21 Pain Level 9 08/18/18 17:21
[2018-08-18 17:58] LABS: Bilirubin Negative (Negative); Blood Large (Negative); Clarity Clear; Glucose Negative (Negative); Ketones Trace mg/dL (Negative); Leukocyte Esterase Negative (Negative); Nitrite Negative (Negative); Specific Gravity >= 1.030 (1.005-1.025); Urobilinogen 0.2 EU/dL (Up TO 0.2)
[2018-08-18 18:14] LABS: Bacteria Many HPF (Negative); Epithelial Cells Many HPF (Negative); RBC >50 (0-2)
[2018-08-18 18:15] LABS: C & S Indicated? No/Sq. Contamination; Casts Negative LPF (Negative); Crystals Negative HPF (Negative); Mucus Negative (Negative)
[2018-08-18 18:25] LABS: Abs Immature Grans 0.01 k/cumm (0.0-0.09); Absolute Basophil Count 0.02 k/cumm (0.0-0.2); Absolute Eosinophil Count 0.11 k/cumm (0.0-0.7); Absolute Lymphocyte Count 2.24 k/cumm (1.2-3.4); Absolute Neutrophil Count 3.63 k/cumm (1.2-6.7); Basophils % 0.3; Eosinophils % 1.7; HCT 39.4 % (36.0-46.0); HGB 13.7 g/dL (12.0-15.5); Immature Grans % 0.2; Lymphocytes % 34.9; Mean Corp. HGB Concentration 34.8 g/dL (32.0-36.0); Mean Corpuscular Hemoglobin 33.2 pg (27.0-33.0); Mean Corpuscular Volume 95.4 fL (80-95); Mean Platelet Volume 10.6 fL (8.0-11.0); Monocytes % 6.2; Neutrophils % 56.7; Platelet Count 183 x1000/uL (130-400); RBC 4.13 m/cumm (4.00-5.20); RBC Distribution Width 11.8 % (11.7-14.6); White Blood Cell Count 6.41 k/cumm (4.4-10.8)
[2018-08-18 18:34] LABS: ALT 39 U/L (12-78); AST 16 U/L (15-37); Albumin 3.6 g/dL (3.4-5.0); Alkaline Phosphatase 81 U/L (46-116); Anion Gap 9.4 mmol/L (3-11); BUN 10 mg/dL (7-18); Bilirubin, Total 0.1 mg/dL (0.2-1.0); CO2 25.6 mmol/L (21.0-32.0); CREATININE 0.78 mg/dL (0.55-1.02); Calcium 8.5 mg/dL (8.5-10.1); Chloride 106 mmol/L (98-107); Glucose 147 mg/dL (70-100); Potassium 3.6 mmol/L (3.5-5.1); Sodium 141 mmol/L (136-145); Total Protein 6.6 g/dL (6.4-8.2)
[2018-08-18] MEDS: Ondansetron O.D.T. 4 MG TABEF PO (18:49)
[2018-08-18] MEDS: HYDROcodone 5/Acetaminophen 325 TAB PO ×3 (18:50→19:23)
--- NOTE | 2018-08-18 18:54 | NUR.NOTE ---
Nursing Note: Pt medicated as ordered by ER Provider for abd pain.
[2018-08-18] MEDS: Lidocaine 5% Patch 1 PATCH TP (19:22)
[2018-08-18 19:27] VITALS: BP 132/86; PULSE 70; RESP 16; TEMP 37; O2SAT 99
== END 2018-08-18 19:28 | disposition home or self-care (01) ==
PROVIDERS: Emergency Provider Physician Assistant; PCP Internal Medicine
DX: R31.9 Hematuria, unspecified (principal); R10.9 Unspecified abdominal pain; G89.29 Other chronic pain
CPT/HCPCS: 36415; 80053; 81025; 99283; 81003; 81015; 85025

== ENCOUNTER 2018-08-29 22:04 | Emergency (ER) | payer MEDICAID, SELFPAY ==
[2018-08-29 22:08] VITALS: BP 132/72; PULSE 85; RESP 18; TEMP 36.8; O2SAT 98
--- NOTE | 2018-08-29 22:24 | ED.GENADUL_ITS ---
Discharge Plan Disposition Patient Disposition: HOME Condition: Good Discharge Details Chief Complaint: Abd Prob Clinical Impression: Abdominal pain, RLQ Primary Care Provider: Mary Jo ED Provider: Rory Chowdary Metaline Meds and New Rx's Prescriptions: Continued trazodone 100 mg tablet 50 - 100 mg PO HS Qty: 120 RF: 4 sertraline 50 MG tablet 50 mg PO DAILY Qty: 90 RF: 11 promethazine 25 mg tablet 25 mg PO Q8H PRN (Reason: nausea and vomiting) Qty: 30 RF: 0 Ibuprofen [Ibuprofen Ib] 200 MG tablet 600 mg PO Q6H PRNQty: 0 RF: 0 Discharge Instructions Instructions: Abdominal Pain (ED) Additional Instructions: Currently you have a non-surgical abdomen with unremarkable laboratory studies. Because you have had 3 CT scans within the last couple of months, we will avoid rescanning for tonight. You will need to see primary care tomorrow for repeat abdominal exam. If unable to be seen, you should return to the ED for abdominal exam. Return to ED overnight if you develop fever, persistent vomiting, severe/worsening abdominal pain. You may take Tylenol or Motrin for pain. Referrals: Mary Jo MD [Primary Care Provider] - Medical Decision Making Patient is afebrile. She has been eating without difficulty. She has nausea but no vomiting. She has a nonsurgical, nontender abdomen. I do not think she has appendicitis. She has had at least 3 CT scans this spring and I really do not wish to repeat imaging tonight based on physical exam. I will check laboratory studies but I think it will be best if we have patient follow-up tomorrow with primary care for repeat abdominal exam and only proceed to imaging if worsening course/worrisome exam. I did discuss this with the patient and she agrees. In regards to her urinary symptoms these have been chronic and she will be rescheduling a cystoscopy in the future. midnight - Patient laboratory studies have come back unremarkable. Her white count is normal with no shift. Liver functions are unchanged from previous. Repeat abdominal exam continues to show a nonsurgical, nontender abdomen. She is given Tylenol. We discussed once again the use of Tylenol or Motrin overnight. Follow-up with primary care tomorrow for repeat abdominal exam. If unable to be seen she should return to ED for repeat abdominal exam. She should return to ED overnight if she develops fever, persistent vomiting, wor sening/severe abdominal pain. Medical Records Medical records reviewed: Yes I reviewed the patient's medical records. Lab Data Lab results reviewed: Yes I reviewed the patient's lab results. HPI General Mode of arrival: ambulatory . Date/Time Provider Initiated Documentation: 08/29/18 22:13 . Limitations to Documentation: no limitations . Information obtained by: patient and old records reviewed . HPI Narrative: Patient is presenting to ED with complaint of right lower quadrant pain. Patient has had right back and flank pain for months. She has been seen by urology. She was supposed to have a cystoscope today but that was canceled and will be rescheduled. She has developed right lower quadrant pain which is, according to her, new and different compared to the typical pain she has had for which she is seeing urology. She had pain yesterday and it resolved. It came back this afternoon and has not resolved. It is described as sharp across the right lower quadrant. She has nausea but no vomiting. She has mucousy diarrhea but no hematochezia. She has no fevers or chills. She has no vaginal discharge or bleeding. She has no change in urinary symptoms. Of note she has had 3 CT scans of the abdomen pelvis this spring. Related Data Home Medications Medication Instructions Recorded Confirmed sertraline 50 mg PO DAILY #90 tab-cap 10/02/17 08/29/18 trazodone 100 mg tablet 50 - 100 mg PO HS #120 tab-cap 03/26/18 08/29/18 Ibuprofen [Ibuprofen Ib] 600 mg PO Q6H PRN #0 07/12/18 08/29/18 promethazine 25 mg tablet 25 mg PO Q8H PRN #30 tab 07/12/18 08/29/18 Previous Rx's Medication Instructions Recorded sertraline 50 mg PO DAILY #90 tab-cap 10/02/17 trazodone 100 mg tablet 50 - 100 mg PO HS #120 tab-cap 03/26/18 Ibuprofen [Ibuprofen Ib] 600 mg PO Q6H PRN #0 07/12/18 promethazine 25 mg tablet 25 mg PO Q8H PRN #30 tab 07/12/18 Allergies Allergy/AdvReac Type Severity Reaction Status Date / Time cephalexin [Cephalexin] AdvReac Severe Abdominal Verified 08/21/18 10:05 Cramps sulfamethoxazole AdvReac Severe Nausea and Verified 08/21/18 10:05 [From Bactrim] vomiting trimethoprim [From Bactrim] AdvReac Severe Nausea and Verified 08/21/18 10:05 vomiting vancomycin AdvReac Severe diarrhea, Verified 08/18/18 17:23 redness Cephalosporins AdvReac Intermediate Diarrhea Verified 08/21/18 10:05 codeine phosphate AdvReac Intermediate Vomiting Verified 08/21/18 10:05 [From Tylenol-Codeine #3] ketorolac AdvReac Intermediate Cramping/vo Verified 08/21/18 10:05 mitting oxycodone AdvReac Intermediate Nausea/vomi Verified 08/21/18 10:05 tting tramadol AdvReac Intermediate Diarrhea Verified 08/18/18 17:23 General Stated Complaint: Abd Prob HLAINA: 3 Review of Systems Review of Systems 12/31 Review of Systems completed and is negative except as stated above in HPI (Systems reviewed: Const, Eyes, ENT, Resp, CV, GI, , MSK, Skin, Neuro) PFSH Medical History Anemia Anxiety BMI 32.0-32.9,adult Depression Endometriosis of pelvis (~2009) Hepatic steatosis Hepatomegaly Kidney stones Lymphedema Patellofemoral dysfunction of left knee Vitamin D deficiency Vulvodynia Surgical History Cholecystectomy (12/28/16) Diagnostic Laproscopy (03/03/10) EGD - MAC Extracorporeal shock wave lithotripsy wisdom teeth extraction Social History Smoking/Tobacco Use Status: Current every day Tobacco Type: cigarettes Alcohol Intake: current Alcohol Intake frequency: holidays/special occasions only Drug use: Never Substance use type: does not use Do you feel safe at home: Yes Do you feel safe in your relationship?: Yes Exam Narrative Exam Narrative: Vitals: Afebrile and normal vitals. Const: WDWN female in NAD. HEENT: NC/AT. Normal facial exam. Eyes: Normal conjunctiva and sclera. Neck: Supple. Trachea midline. Lungs: Normal respiratory effort. Lungs are clear. Cor: RRR without murmur/gallop. Good radial pulses. GI: Soft. NT/ND. No guarding or rebound. No appreciable tendeness in abdomen tonight. Non-surgical abdomen. Neuro: A+O x 3. CN grossly in tact. Good strength and no focal deficit. Ext: No C/C/E. No deformity or tenderness. Skin: Warm and dry without rash. Course Vital Signs Temperature 98.2 F 08/29/18 22:08 Pulse 85 08/29/18 22:08 Respiratory Rate 18 08/29/18 22:08 Blood Pressure 132/72 08/29/18 22:08 Pulse Oximetry 98 08/29/18 22:08 Temperature 98.2 F 08/29/18 22:08 Temperature Source Tympanic 08/29/18 22:08 Pulse 85 08/29/18 22:08 Respiratory Rate 18 08/29/18 22:08 Respiratory Effort Non-Labored 08/29/18 22:15 Blood Pressure 132/72 08/29/18 22:08 Blood Pressure Position Sitting 08/29/18 22:08 Pulse Oximetry 98 08/29/18 22:08 Oxygen Delivery Method Room Air 08/29/18 22:08 Oxygen Flow Rate 0 08/29/18 22:08 Pain Level 8 08/29/18 22:08
[2018-08-29 22:49] LABS: Abs Immature Grans 0.01 k/cumm (0.0-0.09); Absolute Basophil Count 0.03 k/cumm (0.0-0.2); Absolute Eosinophil Count 0.18 k/cumm (0.0-0.7); Absolute Lymphocyte Count 2.34 k/cumm (1.2-3.4); Absolute Monocyte Count 0.46 k/cumm (0.11-0.7); Absolute Neutrophil Count 4.23 k/cumm (1.2-6.7); Basophils % 0.4; Eosinophils % 2.5; HCT 37.1 % (36.0-46.0); HGB 12.6 g/dL (12.0-15.5); Immature Grans % 0.1; Lymphocytes % 32.3; Mean Corpuscular Hemoglobin 32.6 pg (27.0-33.0); Mean Corpuscular Volume 95.9 fL (80-95); Mean Platelet Volume 10.3 fL (8.0-11.0); Monocytes % 6.3; Neutrophils % 58.4; Platelet Count 165 x1000/uL (130-400); RBC 3.87 m/cumm (4.00-5.20); RBC Distribution Width 11.8 % (11.7-14.6); White Blood Cell Count 7.25 k/cumm (4.4-10.8)
[2018-08-29 23:26] LABS: ALT 42 U/L (12-78); AST 14 U/L (15-37); Albumin 3.3 g/dL (3.4-5.0); Alkaline Phosphatase 79 U/L (46-116); Anion Gap 8.7 mmol/L (3-11); BUN 6 mg/dL (7-18); Bilirubin, Total 0.1 mg/dL (0.2-1.0); CO2 24.3 mmol/L (21.0-32.0); CREATININE 0.59 mg/dL (0.55-1.02); Calcium 8.1 mg/dL (8.5-10.1); Chloride 110 mmol/L (98-107); Glucose 110 mg/dL (70-100); Lipase 108 U/L (73-393); Potassium 3.5 mmol/L (3.5-5.1); Sodium 143 mmol/L (136-145); Total Protein 5.9 g/dL (6.4-8.2)
[2018-08-30] MEDS: Acetaminophen 500 MG TAB 1000 MG PO (00:03)
[2018-08-30 00:10] VITALS: BP 122/74; PULSE 60; RESP 16; TEMP 36.4; O2SAT 98
== END 2018-08-30 00:10 | disposition home or self-care (01) ==
PROVIDERS: Emergency Provider Emergency Medicine; PCP Internal Medicine
DX: R10.31 Right lower quadrant pain (principal)
CPT/HCPCS: 36415; 80053; 81025; 83690; 99283; 85025

== ENCOUNTER 2018-10-16 15:50 | Emergency (ER) | payer MEDICAID, SELFPAY ==
[2018-10-16 15:57] VITALS: BP 124/74; PULSE 85; RESP 18; TEMP 36.7; O2SAT 95
--- NOTE | 2018-10-16 16:02 | DI.CT_ITS ---
SYMPTOMS/DIAGNOSIS: RIGHT FLANK PAIN RENAL COLIC CT: The study was conducted according to the usual protocol without contrast enhancement. Note is made of a fatty liver. The patient is status post cholecystectomy. The pancreas, spleen and adrenals are normal. The kidneys and ureters are normal. There is no evidence of bowel obstruction or mucosal thickening. There is nothing to suggest an acute appendix. There is no evidence of free air and there is a small quantity of pelvic ascites. There is no aortic aneurysm. There is no lymphadenopathy. The bladder is nondistended. The reproductive organs as visualized are intact. No acute bony abnormality is seen. The soft tissues are unremarkable. SUMMARY: No acute findings in the abdomen or pelvis. Note is made of an enlarged fatty liver. There is a small quantity of pelvic free fluid.
--- NOTE | 2018-10-16 16:04 | ED.GENADUL_ITS ---
Discharge Plan Disposition Patient Disposition: HOME Condition: Stable Discharge Details Chief Complaint: FlankPain Clinical Impression: Kidney stone Primary Care Provider: Mary Jo ED Provider: Ezequiel Washburn Home Meds and New Rx's Prescriptions: New tamsulosin [Flomax] 0.4 mg capsule 0.4 mg PO DAILY Qty: 14 RF: 0 hydrocodone-acetaminophen [[place]] 5-325 mg tablet 1 tab PO Q8H PRN (Reason: pain) Qty: 5 RF: 0 Continued trazodone 100 mg tablet 50 - 100 mg PO HS Qty: 120 RF: 4 sertraline 50 MG tablet 50 mg PO DAILY Qty: 90 RF: 11 promethazine 25 mg tablet 25 mg PO Q8H PRN (Reason: nausea and vomiting) Qty: 30 RF: 0 Ibuprofen [Ibuprofen Ib] 200 MG tablet 600 mg PO Q6H PRNQty: 0 RF: 0 Discharge Instructions Instructions: Kidney Stones (ED) Additional Instructions: Please take your medication as prescribed and follow-up with urology as directed by their office. Return to the emergency department for any severe worsening of symptoms, fever chills, or any further concerns. Stay well-hydrated to assist with passing the presumed kidney stone Referrals: Sebastián Barnard MD [ [facility]] - (Call the office to arrange follow-up appointment) Discharge Data Discharge Date/Time-TO BE ENTERED AT DEPARTURE: 10/16/18 17:52 Medical Decision Making Patient presenting to the emergency department for chief complaint of right flank pain. Patient states that this woke her up in the middle the night yesterday evening while she was sleeping. Patient reports history of kidney stones and has had previous stones in the past with similar presentation. Patient does state some associated nausea and hematuria otherwise denies any abdominal pain, fever chills. Plan to check labs and CT imaging. Pending results patient given Phenergan and hydromorphone Review of labs is unremarkable CBC, unremarkable CMP, UA does show blood and RBCs. CT imaging shows a questionable radiopaque circular finding in the right pelvis does appear to be close to the UVJ but radiologist states no acute findings noted. Given the patient has history of kidney stones, blood in urine, and right CVA tenderness without hydronephrosis or other symptoms there is concern for kidney stone. Patient placed upon urology list for review of CT imaging by specialist. [place] drug database was queried and patient not on any narcotics and has not had a narcotic prescription in over 2 months so I feel low risk and prescribing patient limited quantity given significant allergies listed. Patient was placed up on Flomax as she states that this is helped in the past. Return precautions discussed. After discussion of diagnosis and plan of care patient has no further needs, questions, or concerns and states clear understanding to return to the emergency department for any worsening symptoms. HPI General Mode of arrival: ambulatory . Date/Time Provider Initiated Documentation: 10/16/18 16:02 . Limitations to Documentation: no limitations . Information obtained by: patient and RN notes reviewed . History of Present Illness 33 year old F presents to the emergency department with the chief complaint of right flank pain, with intensity rated at 10. Quality is described as sharp, and is localized to the right (flank). Patient started experiencing this day(s) (1) Patient did receive the following treatments prior to arrival, none Related Data Home Medications Medication Instructions Recorded Confirmed sertraline 50 mg PO DAILY #90 tab-cap 10/02/17 09/23/18 trazodone 100 mg tablet 50 - 100 mg PO HS #120 tab-cap 03/26/18 09/23/18 Ibuprofen [Ibuprofen Ib] 600 mg PO Q6H PRN #0 07/12/18 09/23/18 promethazine 25 mg tablet 25 mg PO Q8H PRN #30 tab 07/12/18 09/23/18 hydrocodone-acetaminophen [[place]] 1 tab PO Q8H PRN #5 tab 10/16/18 tamsulosin [Flomax] 0.4 mg PO DAILY #14 cap 10/16/18 Previous Rx's Medication Instructions Recorded sertraline 50 mg PO DAILY #90 tab-cap 10/02/17 trazodone 100 mg tablet 50 - 100 mg PO HS #120 tab-cap 03/26/18 Ibuprofen [Ibuprofen Ib] 600 mg PO Q6H PRN #0 07/12/18 promethazine 25 mg tablet 25 mg PO Q8H PRN #30 tab 07/12/18 hydrocodone-acetaminophen [[place]] 1 tab PO Q8H PRN #5 tab 10/16/18 tamsulosin [Flomax] 0.4 mg PO DAILY #14 cap 10/16/18 Allergies Allergy/AdvReac Type Severity Reaction Status Date / Time cephalexin [Cephalexin] AdvReac Severe Abdominal Verified 08/21/18 10:05 Cramps sulfamethoxazole AdvReac Severe Nausea and Verified 08/21/18 10:05 [From Bactrim] vomiting trimethoprim [From Bactrim] AdvReac Severe Nausea and Verified 08/21/18 10:05 vomiting vancomycin AdvReac Severe diarrhea, Verified 08/18/18 17:23 redness Cephalosporins AdvReac Intermediate Diarrhea Verified 08/21/18 10:05 codeine phosphate AdvReac Intermediate Vomiting Verified 08/21/18 10:05 [From Tylenol-Codeine #3] ketorolac AdvReac Intermediate Cramping/vo Verified 08/21/18 10:05 mitting oxycodone AdvReac Intermediate Nausea/vomi Verified 08/21/18 10:05 tting tramadol AdvReac Intermediate Diarrhea Verified 08/18/18 17:23 General Stated Complaint: FlankPain HALINA: 3 Review of Systems Constitutional Denies chills, Denies fever(s) and Reports poor appetite Cardiovascular Denies chest pain and Denies dyspnea Respiratory Denies cough and Denies dyspnea Gastrointestinal Reports as per HPI, Denies abdominal pain, Denies melena, Denies change in bowel habits, Denies constipation, Denies diarrhea and Reports nausea Genitourinary Reports as per HPI, Reports hematuria, Denies dysuria, Reports flank pain, Denies urinary incontinence and Denies urinary urgency Integumentary/Breasts Denies rash PFSH Medical History Anemia Anxiety BMI 32.0-32.9,adult Depression Endometriosis of pelvis (~2009) Hepatic steatosis Hepatomegaly Kidney stones Lymphedema Patellofemoral dysfunction of left knee Vitamin D deficiency Vulvodynia Surgical History Cholecystectomy (12/28/16) Diagnostic Laproscopy (03/03/10) EGD - MAC Extracorporeal shock wave lithotripsy wisdom teeth extraction Family History Mother Diabetes Heart disease Hyperlipidemia Father Colon cancer Heart disease Hyperlipidemia Sister Hyperlipidemia Grandfather Diabetes Grandfather Diabetes Hyperlipidemia Asthma Grandmother Diabetes Personal history of malignant neoplasm Heart disease Hyperlipidemia Grandmother No problems noted. Social History Smoking/Tobacco Use Status: Current every day Tobacco Type: cigarettes Alcohol Intake: current Alcohol Intake frequency: holidays/special occasions o nly Drug use: Never Substance use type: does not use Do you feel safe at home: Yes Do you feel safe in your relationship?: Yes Exam Const General: cooperative Orientation: alert, awake and oriented x3 Resp Effort & Inspection: normal respiratory effort and able to speak in complete sentences Auscultation: clear to auscultation bilaterally Cardio Rate: regular rate Rhythm: regular rhythm Heart Sounds: S1 normal and S2 normal GI Palpation: soft, not firm, no guarding, no masses, no pulsatile masses, not rigid, no splenomegaly and nontender Auscultation: normal bowel sounds Back/Spine/Pelvis Back: CVA tenderness (Moderate on the right) Neuro General: alert, awake, oriented x3, gait normal and moves all extremities Course Vital Signs Temperature 36.7 C 10/16/18 15:57 Pulse 85 10/16/18 15:57 Respiratory Rate 18 10/16/18 15:57 Blood Pressure 124/74 10/16/18 15:57 Pulse Oximetry 95 10/16/18 15:57 Temperature 36.7 C 10/16/18 15:57 Temperature Source Temporal Artery Scan 10/16/18 15:57 Pulse 85 10/16/18 15:57 Respiratory Rate 18 10/16/18 15:57 Respiratory Effort 10/16/18 15:57 Blood Pressure 124/74 10/16/18 15:57 Blood Pressure Position Sitting 10/16/18 15:57 Pulse Oximetry 95 10/16/18 15:57 Oxygen Delivery Method Room Air 10/16/18 15:57 Oxygen Flow Rate 0 10/16/18 15:57
[2018-10-16] MEDS: Normal Saline 1,000 ML 1000 ML IV (16:15)
[2018-10-16] MEDS: HYDROmorphone 2 MG/ML VIAL 0.5 MG IVP (16:15)
[2018-10-16 16:31] LABS: Abs Immature Grans 0.01 k/cumm (0.0-0.09); Absolute Basophil Count 0.03 k/cumm (0.0-0.2); Absolute Eosinophil Count 0.15 k/cumm (0.0-0.7); Absolute Lymphocyte Count 2.17 k/cumm (1.2-3.4); Absolute Monocyte Count 0.54 k/cumm (0.11-0.7); Absolute Neutrophil Count 4.48 k/cumm (1.2-6.7); Basophils % 0.4; HCT 41.9 % (36.0-46.0); HGB 14.8 g/dL (12.0-15.5); Immature Grans % 0.1; Lymphocytes % 29.4; Mean Corp. HGB Concentration 35.3 g/dL (32.0-36.0); Mean Corpuscular Hemoglobin 33.2 pg (27.0-33.0); Mean Corpuscular Volume 93.9 fL (80-95); Mean Platelet Volume 10.5 fL (8.0-11.0); Monocytes % 7.3; Neutrophils % 60.8; Platelet Count 188 x1000/uL (130-400); RBC 4.46 m/cumm (4.00-5.20); RBC Distribution Width 12.1 % (11.7-14.6); White Blood Cell Count 7.38 k/cumm (4.4-10.8)
[2018-10-16 16:49] LABS: Bilirubin Negative (Negative); Blood Large (Negative); Clarity Clear (Clear); Glucose Negative (Negative); Ketones Negative (Negative); Leukocyte Esterase Negative (Negative); Nitrite Negative (Negative); Specific Gravity 1.025 (1.005-1.025); Urobilinogen 0.2 EU/dL (Up TO 0.2); pH 5.5 (5-8)
[2018-10-16 16:49] LABS: ALT 46 U/L (12-78); AST 22 U/L (15-37); Albumin 3.8 g/dL (3.4-5.0); Alkaline Phosphatase 83 U/L (46-116); Anion Gap 11.1 mmol/L (3-11); BUN 10 mg/dL (7-18); Bilirubin, Total 0.3 mg/dL (0.2-1.0); CO2 21.9 mmol/L (21.0-32.0); CREATININE 0.65 mg/dL (0.55-1.02); Calcium 8.8 mg/dL (8.5-10.1); Chloride 107 mmol/L (98-107); Glucose 117 mg/dL (70-100); Potassium 3.6 mmol/L (3.5-5.1); Sodium 140 mmol/L (136-145); Total Protein 7.1 g/dL (6.4-8.2)
[2018-10-16 16:58] LABS: Bacteria Few HPF (Negative); C & S Indicated? No; Casts Negative LPF (Negative); Crystals Negative HPF (Negative); Epithelial Cells Few HPF (Negative); Mucus Moderate (Negative); Other Cells Negative (Negative); WBC Negative HPF (0-5)
--- NOTE | 2018-10-16 17:02 | DI.VRAD_ITS ---
EXAM: CT Abdomen and Pelvis Without Contrast EXAM DATE/TIME: 10/16/2018 4:04 PM CLINICAL HISTORY: 33 years old, female; Abdominal pain; Prior surgery TECHNIQUE: Imaging protocol: Axial computed tomography images of the abdomen and pelvis without contrast. Coronal and sagittal reformatted images were created and reviewed. COMPARISON: CT renal colic wo 08/12/2018 11:49 PM FINDINGS: Liver: Fatty liver. No masses. Hepatomegaly measuring 23 cm. Gallbladder and bile ducts: Cholecystectomy. Pancreas: Normal. No ductal dilation. Spleen: Normal. No splenomegaly. Adrenals: Normal. No mass. Kidneys and ureters: Normal. No hydronephrosis. Stomach and bowel: Normal. No obstruction. No mucosal thickening. Appendix: No evidence of appendicitis. Intraperitoneal space: Small amount of pelvic ascites. Vasculature: Normal. No abdominal aortic aneurysm. Lymph nodes: Normal. No enlarged lymph nodes. Bladder: Collapsed bladder limiting evaluation. Reproductive: Unremarkable as visualized. Bones/joints: No acute fracture. No dislocation. Soft tissues: Unremarkable. IMPRESSION: No acute finding. Fatty enlarged liver. Small amount of pelvic ascites. Dictated and Authenticated by: Zenaida Spann MD. Ordering:NURYS Nieves MD
[2018-10-16 17:48] VITALS: BP 121/78; PULSE 68; RESP 14; TEMP 36.6; O2SAT 98
--- NOTE | 2018-10-16 20:52 | NUR.NOTE ---
Referral faxed to [facility].Nursing Note:
== END 2018-10-16 17:52 | disposition home or self-care (01) ==
PROVIDERS: Emergency Provider Nurse Practitioner Family; PCP Internal Medicine
DX: N20.0 Calculus of kidney (principal); Z87.442 Personal history of urinary calculi
CPT/HCPCS: 36415; 80053; 81025; 96361; 96365; 96375; 99284; 74176; 81003; 81015; 85025

== ENCOUNTER 2018-10-27 15:29 | Emergency (ER) | payer MEDICAID, SELFPAY ==
[2018-10-27 15:32] VITALS: BP 137/75; PULSE 95; RESP 16; TEMP 36.7; O2SAT 97
[2018-10-27 15:44] LABS: Bilirubin Negative (Negative); Blood Large (Negative); Clarity Cloudy (Clear); Glucose Negative (Negative); Ketones Trace mg/dL (Negative); Leukocyte Esterase Negative (Negative); Nitrite Negative (Negative); Specific Gravity 1.025 (1.005-1.025); Urobilinogen 0.2 EU/dL (Up TO 0.2); pH 5.5 (5-8)
[2018-10-27 15:51] LABS: Bacteria Few HPF (Negative); C & S Indicated? No; Casts Negative LPF (Negative); Crystals Negative HPF (Negative); Epithelial Cells Few HPF (Negative); Mucus Trace (Negative); Other Cells Negative (Negative); RBC >50 (0-2); WBC Negative HPF (0-5)
[2018-10-27] MEDS: HYDROcodone 5/Acetaminophen 325 TAB PO (16:03)
--- NOTE | 2018-10-27 16:05 | W.ED.GENAD ---
Discharge Plan Disposition Patient Disposition: HOME Condition: Stable Discharge Details Chief Complaint: FlankPain Clinical Impression: Right flank pain Primary Care Provider: Mary Jo ED Provider: Austin Quan Home Meds and New Rx's Prescriptions: Continued trazodone 100 mg tablet 50 - 100 mg PO HS Qty: 120 RF: 4 sertraline 50 MG tablet 50 mg PO DAILY Qty: 90 RF: 11 promethazine 25 mg tablet 25 mg PO Q8H PRN (Reason: nausea and vomiting) Qty: 30 RF: 0 hydrocodone-acetaminophen [[place]] 5-325 mg tablet 1 tab PO Q8H MDD 2 PRN (Reason: renal colic) Qty: 10 RF: 0 Ibuprofen [Ibuprofen Ib] 200 MG tablet 600 mg PO Q6H PRNQty: 0 RF: 0 tamsulosin [Flomax] 0.4 mg capsule 0.4 mg PO DAILY Qty: 14 RF: 0 Discharge Instructions Instructions: Flank Pain (ED) Additional Instructions: follow up with your primary care provider this week while waiting for urology if you develop severe worsening of pain, fevers or feel more ill return to the emergency department Medical Decision Making 33 yo female with hx of idney stones who is waiting to see urology next month comes in with cc of right flank pain similar to prior episodes. She was seen last week and had ct which was inconcolusive for kidney stone at that time. She felt better but had return of pain so came back. No fevers, abdominal pain or tenderness. She has some mild right cva tenderness. UA does show blood consistent with prior visits. Could be kidney stone vs loin pain hematuria syndrome. I had long discussion about repeat ct imaging to dx kidney stone but after discussion of risks benefits of radiation pt chooses to defer ct imaging. Will presribe short ourse of pain medications and have her f/u with her pcp while waiting for urology and return precautions given Differential Diagnosis kidney stone, loin pain hematuria syndrome HPI General Mode of arrival: ambulatory. Date/Time Provider Initiated Documentation: 10/27/18 15:30. Limitations to Documentation: no limitations. Information obtained by: patient. History of Present Illness 33 year old F presents to the emergency department with the chief complaint of right flank pain, described as moderate and severe, Quality is described as aching, Patient started experiencing this day(s) (1) and it has been constant. No relieving factors improve symptom(s), No exacerbating factors reported . Patient did receive the following treatments prior to arrival, NSAID Related Data Home Medications Medication Instructions Recorded Confirmed sertraline 50 mg PO DAILY #90 tab-cap 18 09/23/18 trazodone 100 mg tablet 50 - 100 mg PO HS #120 tab-cap 03/26/18 09/23/18 Ibuprofen [Ibuprofen Ib] 600 mg PO Q6H PRN #0 07/12/18 09/23/18 promethazine 25 mg tablet 25 mg PO Q8H PRN #30 tab 07/12/18 09/23/18 tamsulosin [Flomax] 0.4 mg PO DAILY #14 cap 10/16/18 hydrocodone-acetaminophen [[place]] 1 tab PO Q8H PRN #10 tab MDD 2 10/27/18 Previous Rx's Medication Instructions Recorded sertraline 50 mg PO DAILY #90 tab-cap 10/02/17 trazodone 100 mg tablet 50 - 100 mg PO HS #120 tab-cap 03/26/18 Ibuprofen [Ibuprofen Ib] 600 mg PO Q6H PRN #0 07/12/18 promethazine 25 mg tablet 25 mg PO Q8H PRN #30 tab 07/12/18 tamsulosin [Flomax] 0.4 mg PO DAILY #14 cap 10/16/18 hydrocodone-acetaminophen [[place]] 1 tab PO Q8H PRN #10 tab MDD 2 10/27/18 Allergies Allergy/AdvReac Type Severity Reaction Status Date / Time cephalexin [Cephalexin] AdvReac Severe Abdominal Verified 08/21/18 10:05 Cramps sulfamethoxazole AdvReac Severe Nausea and Verified 08/21/18 10:05 [From Bactrim] vomiting trimethoprim [From Bactrim] AdvReac Severe Nausea and Verified 08/21/18 10:05 vomiting vancomycin AdvReac Severe diarrhea, Verified 08/18/18 17:23 redness Cephalosporins AdvReac Intermediate Diarrhea Verified 08/21/18 10:05 codeine phosphate AdvReac Intermediate Vomiting Verified 08/21/18 10:05 [From Tylenol-Codeine #3] ketorolac AdvReac Intermediate Cramping/vo Verified 08/21/18 10:05 mitting oxycodone AdvReac Intermediate Nausea/vomi Verified 08/21/18 10:05 tting tramadol AdvReac Intermediate Diarrhea Verified 08/18/18 17:23 General Stated Complaint: FlankPain HALINA: 3 Review of Systems Review of Systems All systems reviewed & are unremarkable except as noted in HPI and below Constitutional Denies chills, Denies fever(s) and Denies weakness Cardiovascular Denies chest pain and Denies dyspnea Respiratory Denies cough and Denies dyspnea Gastrointestinal Denies abdominal pain, Denies nausea and Denies vomiting Musculoskeletal Denies joint swelling Neurologic Denies weakness Psychiatric Denies depression Endocrine Denies heat intolerance [facility] Social History Smoking/Tobacco Use Status: Current every day Tobacco Type: cigarettes Alcohol Intake: current Alcohol Intake frequency: holidays/special occasions only Drug use: Never Substance use type: does not use Do you feel safe at home: Yes Do you feel safe in your relationship?: Yes Exam Const General: no acute distress Orientation: alert HENMT Head: normal to inspection Ears: external ears normal General nose exam: external nose normal Mouth: moist mucous membranes Eyes General: appearance normal, both eyes and all related structures Neck Neck: normal visual inspection Resp Effort & Inspection: normal respiratory effort and able to speak in complete sentences Cardio Rate: regular rate Back/Spine/Pelvis Back: no CVA tenderness Skin General skin exam: no rashes or lesions noted Neuro General: alert and oriented x3 Extrem General: normal to inspection Psych Mental Status: mental status grossly normal Course Vital Signs Temperature 36.7 C 10/27/18 15:32 Pulse 95 H 10/27/18 15:32 Respiratory Rate 16 10/27/18 15:32 Blood Pressure 137/75 10/27/18 15:32 Pulse Oximetry 97 10/27/18 15:32 Temperature 36.7 C 10/27/18 15:32 Temperature Source Skin 10/27/18 15:32 Pulse 95 H 10/27/18 15:32 Respiratory Rate 16 10/27/18 15:32 Respiratory Effort Non-Labored 10/27/18 15:34 Blood Pressure 137/75 10/27/18 15:32 Blood Pressure Position Sitting 10/27/18 15:32 Pulse Oximetry 97 10/27/18 15:32 Oxygen Delivery Method Room Air 10/27/18 15:32 Oxygen Flow Rate 0 10/27/18 15:32 Pain Level 10 10/27/18 15:47 Lab/Test Results Lab/Test Results: Laboratory Tests Range/Units 10/27/18 15:37 Urine Color (Yellow) Yellow Urine Clarity (Clear) Cloudy Urine pH (5-8) 5.5 Ur Specific [place] (1.005-1.025) 1.025 Urine Protein (Negative) mg/dL Negative Urine Ketones (Negative) mg/dL Trace H Urine Blood (Negative) Large H Urine Nitrite (Negative) Negative Urine Bilirubin (Negative) Negative Urine Urobilinogen (Up TO 0.2) EU/dL 0.2 Ur Leukocyte Esterase (Negative) Negative Urine RBC (0-2) >50 H Urine WBC (0-5) HPF Negative Ur Epithelial Cells (Negative) HPF Few Urine Crystals (Negative) HPF Negative Urine Bacteria (Negative) HPF Few Urine Casts (Negative) LPF Negative Urine Mucus (Negative) Trace Urine Other (Negative) Negative Ur Culture Indicated? No Urine Glucose (Negative) mg/dL Negative
[2018-10-27 16:17] VITALS: BP 129/94; PULSE 83; RESP 15; O2SAT 100
== END 2018-10-27 16:10 | disposition home or self-care (01) ==
PROVIDERS: Emergency Provider Emergency Medicine; PCP Internal Medicine
DX: R10.11 Right upper quadrant pain (principal); R31.9 Hematuria, unspecified; Z87.442 Personal history of urinary calculi
CPT/HCPCS: 99283; 81003; 81015

== ENCOUNTER 2018-10-31 20:50 | Emergency (ER) | payer MEDICAID, SELFPAY ==
[2018-10-31 20:53] VITALS: BP 134/82; PULSE 88; RESP 16; TEMP 36.7; O2SAT 98
--- NOTE | 2018-10-31 20:55 | ED.GENADUL_ITS ---
Discharge Plan Disposition Patient Disposition: HOME Condition: Good Discharge Details Chief Complaint: FlankPain Clinical Impression: Right flank pain Primary Care Provider: Mary Jo ED Provider: Rory Chowdary Meds and New Rx's Prescriptions: Continued trazodone 100 mg tablet 50 - 100 mg PO HS Qty: 120 RF: 4 sertraline 50 MG tablet 50 mg PO DAILY Qty: 90 RF: 11 promethazine 25 mg tablet 25 mg PO Q8H PRN (Reason: nausea and vomiting) Qty: 30 RF: 0 Ibuprofen [Ibuprofen Ib] 200 MG tablet 600 mg PO Q6H PRNQty: 0 RF: 0 tamsulosin [Flomax] 0.4 mg capsule 0.4 mg PO DAILY Qty: 14 RF: 0 Discharge Instructions Additional Instructions: In reviewing all of your CT scans done this year none have shown a stone. There is a phlebolith on the right side but that is not related to a kidney stone and it is not in the ureter. Unclear what causes the pain and blood in your urine. You definitely need follow-up with urology. In the meantime use primary care for management of pain. Please contact him in the morning for follow-up. Return to ED if you develop fever, vomiting, intense/uncontrolled pain. Referrals: Mary Jo MD [Primary Care Provider] - Medical Decision Making Patient returns with continued flank pain. Repeat urinalysis continues to show blood. Patient did not contact primary care as previously instructed. She does report follow-up with urology scheduled. Patient will be given one [place] to use tonight when she gets home and one for the morning. She is instructed to contact primary care for further follow-up and pain management. Return to ED if she develops fevers, persistent vomiting, new/significantly worse pain. Medical Records Medical records reviewed: Yes I reviewed the patient's medical records. HPI General Mode of arrival: ambulatory . Date/Time Provider Initiated Documentation: 10/31/18 20:50 . Limitations to Documentation: no limitations . Information obtained by: patient, RN notes reviewed and old records reviewed . HPI Narrative: Patient presents to ED with continued right flank pain. She has had this intermittently since the spring. She had one visit with urology. She was supposed to have a cystoscopy done but never had follow-up. She now has follow- up in late November. She has recently been back here twice now in the last couple weeks. She continues to have flank pain. She is found to have hematuria on each visit. CT scans including most recent one did not show evidence of kidney stone, hydroureter, hydronephrosis. She has not contacted or seen primary care for the last 2 weeks. She was seen by Dr. Quan here 4 days ago. She was instructed to call for follow-up with PCP. She reports not doing this. She returns tonight for continued pain. She has run out of the [place] that was prescribed. She has not had any fever. She has some nausea but no vomiting. The pain remains in the flank and is unchanged. Related Data Home Medications Medication Instructions Recorded Confirmed sertraline 50 mg PO DAILY #90 tab-cap 10/02/17 10/31/18 trazodone 100 mg tablet 50 - 100 mg PO HS #120 tab-cap 03/26/18 10/31/18 Ibuprofen [Ibuprofen Ib] 600 mg PO Q6H PRN #0 07/12/18 10/31/18 promethazine 25 mg tablet 25 mg PO Q8H PRN #30 tab 07/12/18 10/31/18 tamsulosin [Flomax] 0.4 mg PO DAILY #14 cap 10/16/18 10/31/18 Previous Rx's Medication Instructions Recorded sertraline 50 mg PO DAILY #90 tab-cap 10/02/17 trazodone 100 mg tablet 50 - 100 mg PO HS #120 tab-cap 03/26/18 Ibuprofen [Ibuprofen Ib] 600 mg PO Q6H PRN #0 07/12/18 promethazine 25 mg tablet 25 mg PO Q8H PRN #30 tab 07/12/18 tamsulosin [Flomax] 0.4 mg PO DAILY #14 cap 10/16/18 Allergies Allergy/AdvReac Type Severity Reaction Status Date / Time cephalexin [Cephalexin] AdvReac Severe Abdominal Verified 10/31/18 20:56 Cramps sulfamethoxazole AdvReac Severe Nausea and Verified 10/31/18 20:56 [From Bactrim] vomiting trimethoprim [From Bactrim] AdvReac Severe Nausea and Verified 10/31/18 20:56 vomiting vancomycin AdvReac Severe diarrhea, Verified 10/31/18 20:56 redness Cephalosporins AdvReac Intermediate Diarrhea Verified 10/31/18 20:56 codeine phosphate AdvReac Intermediate Vomiting Verified 10/31/18 20:56 [From Tylenol-Codeine #3] ketorolac AdvReac Intermediate Cramping/vo Verified 10/31/18 20:56 mitting oxycodone AdvReac Intermediate Nausea/vomi Verified 10/31/18 20:56 tting tramadol AdvReac Intermediate Diarrhea Verified 10/31/18 20:56 General Stated Complaint: FlankPain HALINA: 4 Review of Systems Review of Systems As documented in HPI otherwise negative as below. Const: no fever, chills, weakness Resp: no cough, SOB, pleuritic pain CV: no CP, diaphoresis, edema, syncope GI: positive for nausea; no abdominal pain, vomiting, diarrhea Neuro: no headache, numbness, focal weakness, confusion PFSH Medical History Anemia Anxiety BMI 32.0-32.9,adult Depression Endometriosis of pelvis (~2009) Hepatic steatosis Hepatomegaly Kidney stones Lymphedema Patellofemoral dysfunction of left knee Vitamin D deficiency Vulvodynia Social History Smoking/Tobacco Use Status: Current every day Tobacco Type: cigarettes Alcohol Intake: current Alcohol Intake frequency: holidays/special occasions only Drug use: Never Substance use type: does not use Do you feel safe at home: Yes Do you feel safe in your relationship?: Yes Exam Narrative Exam Narrative: Vitals: Afebrile with normal vitals. Const: WDWN female in NAD. HEENT: NC/AT. Normal facial exam. Neck: Supple. Trachea midline. Lungs: Normal respiratory effort. GI: Soft. NT/ND. No guarding or rebound. Back: Mild right CVAT Neuro: A+O x 3. CN grossly in tact. Good strength and no focal deficit. Course Vital Signs Temperature 98.1 F 10/31/18 20:53 Pulse 88 10/31/18 20:53 Respiratory Rate 16 10/31/18 20:53 Blood Pressure 134/82 10/31/18 20:53 Pulse Oximetry 98 10/31/18 20:53 Temperature 98.1 F 10/31/18 20:53 Temperature Source Skin 10/31/18 20:53 Pulse 88 10/31/18 20:53 Respiratory Rate 16 10/31/18 20:53 Blood Pressure 134/82 10/31/18 20:53 Blood Pressure Position Sitting 10/31/18 20:53 Pulse Oximetry 98 10/31/18 20:53 Oxygen Delivery Method Room Air 10/31/18 20:53 Oxygen Flow Rate 0 10/31/18 20:53 Pain Level 10 10/31/18 20:53
[2018-10-31 21:10] LABS: Bilirubin Negative (Negative); Blood Large (Negative); Glucose Negative (Negative); Ketones Negative (Negative); Leukocyte Esterase Negative (Negative); Nitrite Negative (Negative); Specific Gravity 1.015 (1.005-1.025); pH 8.5 (5-8)
[2018-10-31 21:30] VITALS: BP 134/82; PULSE 88; RESP 16; TEMP 36.7; O2SAT 98
[2018-10-31] MEDS: HYDROcodone 5/Acetaminophen 325 TAB PO (21:30)
[2018-10-31 21:32] LABS: Bacteria Many HPF (Negative); C & S Indicated? No/Sq. Contamination; Casts Negative LPF (Negative); Clarity Sl Cloudy (Clear); Crystals Negative HPF (Negative); Epithelial Cells Many HPF (Negative); Mucus Negative (Negative); RBC >50 (0-2)
== END 2018-10-31 21:30 | disposition home or self-care (01) ==
PROVIDERS: Emergency Provider Emergency Medicine; PCP Internal Medicine
DX: R10.11 Right upper quadrant pain (principal); R11.0 Nausea; Z87.442 Personal history of urinary calculi
CPT/HCPCS: 81025; 99283; 81003; 81015

== ENCOUNTER 2019-02-21 19:32 | Emergency (ER) | payer MEDICAID, SELFPAY ==
[2019-02-21 19:35] VITALS: BP 147/73; PULSE 73; RESP 18; TEMP 37.2; O2SAT 98
[2019-02-21 20:02] LABS: Bilirubin Negative (Negative); Blood Moderate (Negative); Clarity Clear (Clear); Glucose Negative (Negative); Ketones Negative (Negative); Leukocyte Esterase Negative (Negative); Nitrite Negative (Negative); Specific Gravity 1.025 (1.005-1.025); Urobilinogen 0.2 EU/dL (Up TO 0.2); pH 6.5 (5-8)
[2019-02-21 20:11] LABS: Bacteria Moderate HPF (Negative); C & S Indicated? No/Sq. Contamination; Casts Negative LPF (Negative); Crystals Negative HPF (Negative); Epithelial Cells Moderate HPF (Negative); Mucus Negative (Negative); RBC >50 HPF (0-2); WBC 0-2 HPF (0-5)
--- NOTE | 2019-02-21 20:17 | W.ED.GENAD ---
Discharge Plan Disposition Patient Disposition: HOME Condition: Good Discharge Details Chief Complaint: Abd Prob Clinical Impression: Hematuria, Flank pain, Chronic pain syndrome Primary Care Provider: Mary Jo ED Provider: Rory Chowdary Meds and New Rx's Prescriptions: Continued sertraline 50 mg tablet 50 mg PO DAILY Qty: 90 RF: 11 trazodone 100 mg tablet 50 - 100 mg PO HS Qty: 120 RF: 4 hydrocodone-acetaminophen 5-325 mg tablet 1 tab PO TID MDD 3 pills PRN (Reason: pain) Qty: 90 RF: 0 Ibuprofen [Ibuprofen Ib] 200 MG tablet 600 mg PO Q6H PRNQty: 0 RF: 0 Discharge Instructions Additional Instructions: Continue medications as before. Contact your primary care as well as your urologist in the morning. Return to ED for fever, persistent vomiting, more pain. Referrals: Marilee Torres [ NON-[facility] STAFF PHYSICIAN] - Mary Jo MD [Primary Care Provider] - Medical Decision Making Patient reporting exacerbation of chronic pain since procedure yesterday. She reports that she was told there was nothing found in her bladder on cystoscopy toexplain her pain and hematuria. She is not sure whether there was any imaging of the ureter. She has taken Vicodin without the typical relief she gets. She has waves of severe pain as well as nausea. Urine is negative. Urinalysis continues to show hematuria but no evidence of infection. Nursing note established IV. Do not feel that labs need to be repeated/performed. Will treat acutely for symptoms and refer back to primary care and urology for further management. Patient's nausea resolved. Pain better. Will receive second dose of morphine and discharge home. Patient to contact her primary care and her urologist in the morning. Return to ED if she develops fever, persistent vomiting, new pain. Medical Records Medical records reviewed: Yes I reviewed the patient's medical records. Lab Data Lab results reviewed: Yes I reviewed the patient's lab results. HPI General Mode of arrival: ambulatory. Date/Time Provider Initiated Documentation: 02/21/19 20:01. Limitations to Documentation: no limitations. Information obtained by: patient, RN notes reviewed and old records reviewed. HPI Narrative: Patient presents to ED with complaint of exacerbation of chronic right flank pain since cystoscopy yesterday. She has been seen by us in the ED a number of times for flank pain and hematuria. She currently has a pain contract with her primary care physician and is seeing urology at [place] for work-up. 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 She has taken her Vicodin today without topical relief. She had vomiting yesterday but just nausea today. She has had no fever or urinary symptoms other than the chronic hematuria. The pain is the same as previous just more severe and more intense when it comes in waves. She has no abdominal pain. She is here for acute pain relief. Related Data Home Medications Medication Instructions Recorded Confirmed Ibuprofen [Ibuprofen Ib] 600 mg PO Q6H PRN #0 07/12/18 02/21/19 sertraline 50 mg tablet 50 mg PO DAILY #90 tab-cap 12/19/18 02/21/19 trazodone 100 mg tablet 50 - 100 mg PO HS #120 tab-cap 12/19/18 02/21/19 hydrocodone 5 mg-acetaminophen 325 1 tab PO TID PRN #90 tab MDD 3 02/18/19 02/21/19 mg tablet pills Previous Rx's Medication Instructions Recorded Ibuprofen [Ibuprofen Ib] 600 mg PO Q6H PRN #0 07/12/18 sertraline 50 mg tablet 50 mg PO DAILY #90 tab-cap 12/19/18 trazodone 100 mg tablet 50 - 100 mg PO HS #120 tab-cap 12/19/18 hydrocodone 5 mg-acetaminophen 325 1 tab PO TID PRN #90 tab MDD 3 02/18/19 mg tablet pills Allergies Allergy/AdvReac Type Severity Reaction Status Date / Time cephalexin [Cephalexin] AdvReac Severe Abdominal Verified 02/21/19 19:48 Cramps sulfamethoxazole AdvReac Severe Nausea and Verified 02/21/19 19:48 [From Bactrim] vomiting trimethoprim [From Bactrim] AdvReac Severe Nausea and Verified 02/21/19 19:48 vomiting vancomycin AdvReac Severe diarrhea, Verified 02/21/19 19:48 redness Cephalosporins AdvReac Intermediate Diarrhea Verified 02/21/19 19:48 codeine phosphate AdvReac Intermediate Vomiting Verified 02/21/19 19:48 [From Tylenol-Codeine #3] ketorolac AdvReac Intermediate Cramping/vo Verified 02/21/19 19:48 mitting oxycodone AdvReac Intermediate Nausea/vomi Verified 02/21/19 19:48 tting tramadol AdvReac Intermediate Diarrhea Verified 02/21/19 19:48 General Stated Complaint: Abd Prob HALINA: 3 Review of Systems Narrative: As documented in HPI otherwise negative as below. Const: no fever, chills, weakness Resp: no cough, SOB, pleuritic pain CV: no CP, diaphoresis, edema, syncope GI: nausea; no abdominal pain, vomiting, diarrhea Neuro: no headache, numbness, focal weakness, confusion [facility] Medical History Anemia Anxiety BMI 32.0-32.9,adult Depression 2013 Seen in ED with SI. Referred to counselor. Endometriosis of pelvis (~2009) Stage1. Flank pain (Acute) Have her sign a narcotics contract and explained narcotic she is to her as well as potential for abuse. Her recent use via [employer] prescription monitoring system showed no issues. Gave her enough Vicodin for 1 -3 times a day for a month, and asked her to call after her visit on November 27. Hepatic steatosis Hepatomegaly Kidney stones Lymphedema Patellofemoral dysfunction of left knee Vitamin D deficiency Vulvodynia Surgical History Cholecystectomy (12/28/16) Diagnostic Laproscopy (03/03/10) Stage I endometriosis EGD - MAC Extracorporeal shock wave lithotripsy wisdom teeth extraction Social History Smoking/Tobacco Use Status: Current every day Tobacco Type: cigarettes Alcohol Intake: current Alcohol Intake frequency: holidays/special occasions only Drug use: Never Substance use type: does not use Do you feel safe at home: Yes Do you feel safe in your relationship?: Yes Exam Narrative Exam Narrative: Vitals: Afebrile. Elevated blood pressure otherwise normal vitals and normal room air pulse ox. Const: WDWN female in NAD. HEENT: NC/AT. Normal facial exam. Eyes: Normal conjunctiva and sclera. Neck: Supple. Trachea midline. Lungs: Normal respiratory effort. GI: Soft. NT/ND. No guarding or rebound. Neuro: A+O x 3. CN grossly in tact. Good strength and no focal deficit. Ext: No C/C/E. Course Vital Signs Vital signs: Vital Signs Temperature 99.0 F 02/21/19 19:35 Pulse 73 02/21/19 19:35 Respiratory Rate 18 02/21/19 19:35 Blood Pressure 147/73 H 02/21/19 19:35 Pulse Oximetry 98 02/21/19 19:35 Temperature 99.0 F 02/21/19 19:35 Temperature Source Skin 02/21/19 19:35 Pulse 73 02/21/19 19:35 Respiratory Rate 18 02/21/19 19:35 Respiratory Effort Non-Labored 02/21/19 19:43 Blood Pressure 147/73 H 02/21/19 19:35 Blood Pressure Position Supine 02/21/19 19:35 Pulse Oximetry 98 02/21/19 19:35 Oxygen Delivery Method Room Air 02/21/19 19:35 Oxygen Flow Rate 0 02/21/19 19:35 Pain Level 10 02/21/19 19:35 Lab/Test Results Lab/Test Results: Laboratory Tests Range/Units 02/21/19 19:55 Urine Color (Yellow) Yellow Urine Clarity (Clear) Clear Urine pH (5-8) 6.5 Ur Specific Hines (1.005-1.025) 1.025 Urine Protein (Negative) mg/dL Negative Urine Ketones (Negative) mg/dL Negative Urine Blood (Negative) Moderate H Urine Nitrite (Negative) Negative Urine Bilirubin (Negative) Negative Urine Urobilinogen (Up TO 0.2) EU/dL 0.2 Ur Leukocyte Esterase (Negative) Negative Urine RBC (0-2) HPF >50 H Urine WBC (0-5) HPF 0-2 Ur Epithelial Cells (Negative) HPF Moderate Urine Crystals (Negative) HPF Negative Urine Bacteria (Negative) HPF Moderate Urine Casts (Negative) LPF Negative Urine Mucus (Negative) Negative Ur Culture Indicated? No/sq. contamination Urine Glucose (Negative) mg/dL Negative POC- Test(urine) Negative
[2019-02-21] MEDS: Ondansetron 4 MG/2 ML VIAL IVP (20:34)
[2019-02-21] MEDS: Normal Saline Flush 10 ML SYR IVP (20:35)
[2019-02-21 21:16] VITALS: RESP 18; O2SAT 98
[2019-02-21 21:19] VITALS: BP 140/77; PULSE 67; RESP 18; TEMP 36.7; O2SAT 98
== END 2019-02-21 21:40 | disposition home or self-care (01) ==
PROVIDERS: Emergency Provider Emergency Medicine; PCP Internal Medicine
DX: R31.9 Hematuria, unspecified (principal); M54.5 Low back pain; G89.18 Other acute postprocedural pain; Y84.8 Other medical procedures as the cause of abnormal reaction of the patient, or of later complication, without mention of misadventure at the time of the procedure; Z87.442 Personal history of urinary calculi
CPT/HCPCS: 36415; 81025; 96374; 96375; 96376; 99284; 81003; 81015; J2405; J3490

== ENCOUNTER 2019-03-15 00:43 | Emergency (ER) | payer MEDICAID, SELFPAY ==
[2019-03-15 00:45] VITALS: BP 150/93; PULSE 85; RESP 16; TEMP 37; O2SAT 98
--- NOTE | 2019-03-15 00:50 | W.ED.GENAD ---
Discharge Plan Disposition Patient Disposition: HOME Condition: Stable Discharge Details Chief Complaint: Abd Prob Clinical Impression: Abdominal pain Primary Care Provider: Mary Jo ED Provider: Austin Quan Home Meds and New Rx's Prescriptions: Continued sertraline 50 mg tablet 50 mg PO DAILY Qty: 90 RF: 11 trazodone 100 mg tablet 50 - 100 mg PO HS Qty: 120 RF: 4 hydrocodone-acetaminophen 5-325 mg tablet 1 tab PO TID MDD 3 pills PRN (Reason: pain) Qty: 90 RF: 0 Ibuprofen [Ibuprofen Ib] 200 MG tablet 600 mg PO Q6H PRNQty: 0 RF: 0 Discharge Instructions Instructions: Abdominal Pain (ED) Additional Instructions: your blood work and cat scan did not show any concerning findings follow up with your primary care provider within 1 week if you have severe worsening pain, or persistent vomit return to the emergency department Medical Decision Making 33 yo female with hx of prior cholecystectomy, chronic pain syndrome, loin pain hematuria syndrome, kidney stones, who comes in with 7 hours of right mid to lower abdominal pain with nausea. Denies pain like this in the past and doens't feel like her prior pain she has had. She has tenderness withotu guarding in right lower abdomen, no other pain elsehwere. Could be related to her endometriosis or chronicpain syndrome but given she states pain is different will obtain lab work and imaging to eval for pancreatitis and appendicits. No pain out of proportion to suggest mesenteric ischemia pt has some tenderness in rlq without guarding. labs reassuring awaiting ct pt's pain improved, imaging negative for acute pathology. Feel she is safe for d/c, advised f/u with pcp and return precautions given Differential Diagnosis Differential Diagnosis: appendicitis, sbo, pancreatitis Medical Records Medical records reviewed: Yes I reviewed the patient's medical records. Imaging Data Radiologic Study: Attestation: I personally reviewed and interpreted this imaging study as follows: Imaging: CT Scan Radiologist's impression: no acute findings on ct Lab Data Lab results reviewed: Yes I reviewed the patient's lab results. HPI General Mode of arrival: ambulatory. Date/Time Provider Initiated Documentation: 03/15/19 00:44. Limitations to Documentation: no limitations. Information obtained by: patient. History of Present Illness 33 year old F presents to the emergency department with the chief complaint of abdominal pain, described as moderate, Quality is described as aching, Patient started experiencing this hour(s) (7) and it has been constant. No relieving factors improve symptom(s), Related Data Home Medications Medication Instructions Recorded Confirmed Ibuprofen [Ibuprofen Ib] 600 mg PO Q6H PRN #0 07/12/18 03/05/19 sertraline 50 mg tablet 50 mg PO DAILY #90 tab-cap 12/19/18 03/05/19 trazodone 100 mg tablet 50 - 100 mg PO HS #120 tab-cap 12/19/18 03/05/19 hydrocodone 5 mg-acetaminophen 325 1 tab PO TID PRN #90 tab MDD 3 02/18/19 03/05/19 mg tablet pills Previous Rx's Medication Instructions Recorded Ibuprofen [Ibuprofen Ib] 600 mg PO Q6H PRN #0 07/12/18 sertraline 50 mg tablet 50 mg PO DAILY #90 tab-cap 12/19/18 trazodone 100 mg tablet 50 - 100 mg PO HS #120 tab-cap 12/19/18 hydrocodone 5 mg-acetaminophen 325 1 tab PO TID PRN #90 tab MDD 3 02/18/19 mg tablet pills Allergies Allergy/AdvReac Type Severity Reaction Status Date / Time cephalexin [Cephalexin] AdvReac Severe Abdominal Verified 03/15/19 00:47 Cramps sulfamethoxazole AdvReac Severe Nausea and Verified 03/15/19 00:47 [From Bactrim] vomiting trimethoprim [From Bactrim] AdvReac Severe Nausea and Verified 03/15/19 00:47 vomiting vancomycin AdvReac Severe diarrhea, Verified 03/15/19 00:47 redness Cephalosporins AdvReac Intermediate Diarrhea Verified 03/15/19 00:47 codeine phosphate AdvReac Intermediate Vomiting Verified 03/15/19 00:47 [From Tylenol-Codeine #3] ketorolac AdvReac Intermediate Cramping/vo Verified 03/15/19 00:47 mitting oxycodone AdvReac Intermediate Nausea/vomi Verified 03/15/19 00:47 tting tramadol AdvReac Intermediate Diarrhea Verified 03/15/19 00:47 General Stated Complaint: Abd Prob HALINA: 3 Review of Systems All systems reviewed & are unremarkable except as noted in HPI and below Constitutional Constitutional: Denies chills and Denies fever(s) Cardiovascular Cardiovascular: Denies chest pain and Denies dyspnea Respiratory Respiratory: Denies cough and Denies dyspnea Gastrointestinal Gastrointestinal: Reports abdominal pain, Reports nausea and Denies vomiting Musculoskeletal Musculoskeletal: Denies joint swelling Psychiatric Psychiatric: Denies depression [facility] Social History Smoking/Tobacco Use Status: Current every day Tobacco Type: cigarettes Alcohol Intake: current Alcohol Intake frequency: holidays/special occasions only Drug use: Never Substance use type: does not use Do you feel safe at home: Yes Do you feel safe in your relationship?: Yes Exam Const General: no acute distress Orientation: alert HENMT Head: normal to inspection Ears: external ears normal General nose exam: external nose normal Mouth: moist mucous membranes Eyes General: appearance normal, both eyes and all related structures Neck Neck: normal visual inspection Resp Effort & Inspection: normal respiratory effort and able to speak in complete sentences Cardio Rate: regular rate GI Palpation: soft Skin General skin exam: no rashes or lesions noted Neuro General: alert and oriented x3 Extrem General: normal to inspection Psych Mental Status: mental status grossly normal Course Vital Signs Vital signs: Vital Signs Temperature 37.0 C 03/15/19 00:45 Pulse 85 03/15/19 00:45 Respiratory Rate 16 03/15/19 00:45 Blood Pressure 150/93 H 03/15/19 00:45 Pulse Oximetry 98 03/15/19 00:45 Temperature 37.0 C 03/15/19 00:45 Temperature Source Tympanic 03/15/19 00:45 Pulse 85 03/15/19 00:45 Respiratory Rate 16 03/15/19 00:45 Respiratory Effort Non-Labored 03/15/19 00:48 Blood Pressure 150/93 H 03/15/19 00:45 Pulse Oximetry 98 03/15/19 00:45 Pain Level 9 03/15/19 00:45
[2019-03-15 01:00] LABS: Bilirubin Negative (Negative); Blood Negative (Negative); Clarity Clear (Clear); Glucose Negative (Negative); Ketones Negative (Negative); Leukocyte Esterase Negative (Negative); Nitrite Negative (Negative); Specific Gravity 1.015 (1.005-1.025); pH >= 9.0 (5-8)
[2019-03-15] MEDS: Normal Saline 1,000 ML 1000 ML IV (01:03)
[2019-03-15] MEDS: Ondansetron 4 MG/2 ML VIAL IVP (01:03)
[2019-03-15] MEDS: fentaNYL 100 MCG/2 ML VIAL IVP ×2 (01:05→01:52)
[2019-03-15 01:07] LABS: Abs Immature Grans 0.01 k/cumm (0.0-0.09); Absolute Basophil Count 0.03 k/cumm (0.0-0.2); Absolute Eosinophil Count 0.18 k/cumm (0.0-0.7); Absolute Lymphocyte Count 2.97 k/cumm (1.2-3.4); Absolute Monocyte Count 0.67 k/cumm (0.11-0.7); Absolute Neutrophil Count 4.08 k/cumm (1.2-6.7); Basophils % 0.4; Eosinophils % 2.3; HCT 43.3 % (36.0-46.0); Immature Grans % 0.1; Lymphocytes % 37.4; Mean Corp. HGB Concentration 34.6 g/dL (32.0-36.0); Mean Corpuscular Hemoglobin 33.3 pg (27.0-33.0); Mean Platelet Volume 10.1 fL (8.0-11.0); Monocytes % 8.4; Neutrophils % 51.4; Platelet Count 227 x1000/uL (130-400); RBC 4.51 m/cumm (4.00-5.20); RBC Distribution Width 11.9 % (11.7-14.6); White Blood Cell Count 7.94 k/cumm (4.4-10.8)
[2019-03-15 01:16] LABS: ALT 41 U/L (14-59); AST 21 U/L (15-37); Albumin 3.7 g/dL (3.4-5.0); Alkaline Phosphatase 99 U/L (46-116); Anion Gap 10.9 mmol/L (3-11); BUN 8 mg/dL (7-18); Bilirubin, Total 0.1 mg/dL (0.2-1.0); CO2 26.1 mmol/L (21.0-32.0); CREATININE 0.59 mg/dL (0.55-1.02); Calcium 8.4 mg/dL (8.5-10.1); Chloride 107 mmol/L (98-107); Glucose 134 mg/dL (74-106); Lipase 126 U/L (73-393); Magnesium 1.9 mg/dL (1.8-2.4); PTT Activated 25.7 sec (21.0-31.4); Potassium 3.8 mmol/L (3.5-5.1); Prothrombin Time 10.4 sec (9.3-11.0); Sodium 144 mmol/L (136-145)
[2019-03-15] MEDS: Omnipaque 350 MG/ML 100 ML BTL IJ (01:33)
--- NOTE | 2019-03-15 01:33 | DI.CT_ITS ---
EXAM: CT ABDOMEN PELVIS W CLINICAL HISTORY: right sided abdominal pain TECHNIQUE: The exam was performed according to the usual protocol. COMPARISON: CT renal colic wo from 10/16/2018 FINDINGS: CT examination of the abdomen and pelvis was performed with a bolus infusion 100 cc of Omnipaque 350. Images obtained through the lung bases are unremarkable. There is marked hepatic steatosis and hep atomegaly. Gallbladder has been surgically removed. No biliary dilatation seen. Spleen is unremark able in appearance as is the pancreas. Abdominal aorta is of normal diameter and no major vascular a bnormality is seen. Adrenals and kidneys are unremarkable. Urinary bladder is a central and is essentially empty. Appendix is normal. No evidence of diverticulitis or bowel obstruction. No significant abdominal wall hernia. No abdominal or pelvic adenopathy. Family Helper structures are unremar kable. IMPRESSION: Hepatic steatosis and hepatomegaly. No evidence of acute process.
--- NOTE | 2019-03-15 01:53 | DI.VRAD_ITS ---
PROCEDURE INFORMATION: Exam: CT Abdomen And Pelvis With Contrast Exam date and time: 03/15/2019 12:50 AM Age: 33 years old Clinical indication: Abdominal pain; Localized; Right; Prior surgery; Surgery date: 6+ months; Surgery type: Renal stone, endometriosis, gallbladder TECHNIQUE: Imaging protocol: Computed tomography of the abdomen and pelvis with intravenous contrast. Radiation optimization: All CT scans at this facility use at least one of these dose optimization techniques: automated exposure control; mA and/or kV adjustment per patient size (includes targeted exams where dose is matched to clinical indication); or iterative reconstruction. Contrast material: [id number]; Contrast volume: 100 ml; Contrast route: IV RT AC 20G; COMPARISON: CT ABDOMEN PELVIS W 03/04/2018 11:24 PM FINDINGS: Lungs: Visualized lung bases are unremarkable. Liver: Hepatic steatosis. Gallbladder and bile ducts: The gallbladder is surgically absent. Pancreas: The pancreas is normal. Spleen: The spleen is normal. Splenule. Adrenals: The adrenal glands are normal. Kidneys and ureters: The kidneys are normal. Stomach and bowel: Incidental duodenal diverticulum. Appendix: A normal appendix is identified. Intraperitoneal space: No free fluid. No free air. Vasculature: The portal and splenic veins are patent. The aorta is normal. Lymph nodes: Unremarkable. No enlarged lymph nodes. Bladder: Decompressed bladder is otherwise unremarkable. Reproductive: Unremarkable as visualized. Bones/joints: Unremarkable. No acute fracture. Soft tissues: Unremarkable. IMPRESSION: 1. No acute abnormality in the abdomen and pelvis. 2. Hepatic steatosis. Dictated and Authenticated by: Cornel Moseley MD. Ordering:XOCHITL Avila MD
[2019-03-15 02:09] VITALS: BP 122/67; PULSE 77; RESP 16; O2SAT 96
== END 2019-03-15 02:10 | disposition home or self-care (01) ==
PROVIDERS: Emergency Provider Emergency Medicine; PCP Internal Medicine
DX: R10.31 Right lower quadrant pain (principal); R11.0 Nausea
CPT/HCPCS: 36415; 80053; 81025; 83690; 96361; 96374; 96375; 96376; 99285; 74177; 81003; 83735; 85025; 85610; 85730; 99284; J2405; J3010; J3490

== ENCOUNTER 2019-03-15 19:24 | Emergency (ER) | payer MEDICAID, SELFPAY ==
[2019-03-15 19:27] VITALS: BP 135/79; PULSE 76; RESP 16; TEMP 36.6; O2SAT 97
--- NOTE | 2019-03-15 20:21 | ED.GENADUL_ITS ---
Discharge Plan Disposition Patient Disposition: OTHER Condition: Stable Discharge Details Chief Complaint: Abd Prob Clinical Impression: Abdominal pain Primary Care Provider: Mary Jo ED Provider: Austin Quan Home Meds and New Rx's Prescriptions: No Action sertraline 50 mg tablet 50 mg PO DAILY Qty: 90 RF: 11 trazodone 100 mg tablet 50 - 100 mg PO HS Qty: 120 RF: 4 hydrocodone-acetaminophen 5-325 mg tablet 1 tab PO TID MDD 3 pills PRN (Reason: pain) Qty: 90 RF: 0 Ibuprofen [Ibuprofen Ib] 200 MG tablet 600 mg PO Q6H PRNQty: 0 RF: 0 Medical Decision Making 33 yo female returns with continued nausea, chills and right sided abdominal pain. Was seen earlier today and had negative lab work and imaging and went home and still was having pain and nausea so came back. Denies any significant increase in pain and only has mild tenderness in right mid abdomen wthout distention or guarding. States she has had some chills today no fevers. Could have gastroenteritis as she states her stools are loose, will treat with ivf and recheck lab work and had long discussion with pt and using shared decision making will hold on additional CT at this time given bening CT earlier today pt's lab work did not show any concerning pathology, pt eloped prior to reexamination. She had decision making capacity so do not feel call back indicated at this time Differential Diagnosis Differential Diagnosis: loin pain hematuria syndrome, influenza, gastroenteritis Lab Data Lab results reviewed: Yes I reviewed the patient's lab results. HPI General Mode of arrival: ambulatory . Date/Time Provider Initiated Documentation: 03/15/19 19:28 . Limitations to Documentation: no limitations . Information obtained by: patient . History of Present Illness 33 year old F presents to the emergency department with the chief complaint of abdominal pain, described as moderate, and it has been constant. No relieving factors improve symptom(s), No exacerbating factors reported . Patient did receive the following treatments prior to arrival, none Related Data Home Medications Medication Instructions Recorded Confirmed Ibuprofen [Ibuprofen Ib] 600 mg PO Q6H PRN #0 07/12/18 03/15/19 sertraline 50 mg tablet 50 mg PO DAILY #90 tab-cap 12/19/18 03/15/19 trazodone 100 mg tablet 50 - 100 mg PO HS #120 tab-cap 12/19/18 03/15/19 hydrocodone 5 mg-acetaminophen 325 1 tab PO TID PRN #90 tab MDD 3 02/18/19 03/15/19 mg tablet pills Previous Rx's Medication Instructions Recorded Ibuprofen [Ibuprofen Ib] 600 mg PO Q6H PRN #0 07/12/18 sertraline 50 mg tablet 50 mg PO DAILY #90 tab-cap 12/19/18 trazodone 100 mg tablet 50 - 100 mg PO HS #120 tab-cap 12/19/18 hydrocodone 5 mg-acetaminophen 325 1 tab PO TID PRN #90 tab MDD 3 02/18/19 mg tablet pills Allergies Allergy/AdvReac Type Severity Reaction Status Date / Time cephalexin [Cephalexin] AdvReac Severe Abdominal Verified 03/15/19 00:47 Cramps sulfamethoxazole AdvReac Severe Nausea and Verified 03/15/19 00:47 [From Bactrim] vomiting trimethoprim [From Bactrim] AdvReac Severe Nausea and Verified 03/15/19 00:47 vomiting vancomycin AdvReac Severe diarrhea, Verified 03/15/19 00:47 redness Cephalosporins AdvReac Intermediate Diarrhea Verified 03/15/19 00:47 codeine phosphate AdvReac Intermediate Vomiting Verified 03/15/19 00:47 [From Tylenol-Codeine #3] ketorolac AdvReac Intermediate Cramping/vo Verified 03/15/19 00:47 mitting oxycodone AdvReac Intermediate Nausea/vomi Verified 03/15/19 00:47 tting tramadol AdvReac Intermediate Diarrhea Verified 03/15/19 00:47 General Stated Complaint: Abd Prob HALINA: 3 Review of Systems All systems reviewed & are unremarkable except as noted in HPI and below Constitutional Constitutional: Denies fever(s) and Denies weakness Cardiovascular Cardiovascular: Denies dyspnea Respiratory Respiratory: Denies dyspnea Musculoskeletal Musculoskeletal: Denies joint swelling Neurologic Neurologic: Denies weakness [facility] Social History Smoking/Tobacco Use Status: Current every day Tobacco Type: cigarettes Alcohol Intake: current Alcohol Intake frequency: holidays/special occasions only Drug use: Never Substance use type: does not use Do you feel safe at home: Yes Do you feel safe in your relationship?: Yes Exam Const General: no acute distress Orientation: alert [facility] Head: normal to inspection Ears: external ears normal General nose exam: external nose normal Mouth: moist mucous membranes Eyes General: appearance normal, both eyes and all related structures Neck Neck: normal visual inspection Resp Effort & Inspection: normal respiratory effort and able to speak in complete sentences Cardio Rate: regular rate GI Palpation: soft Skin General skin exam: no rashes or lesions noted Neuro General: alert and oriented x3 Extrem General: normal to inspection Psych Mental Status: mental status grossly normal Course Vital Signs Vital signs: Vital Signs Temperature 36.6 C 03/15/19 19:27 Pulse 76 03/15/19 19:27 Respiratory Rate 16 03/15/19 19:27 Blood Pressure 135/79 03/15/19 19:27 Pulse Oximetry 97 03/15/19 19:27 Temperature 36.6 C 03/15/19 19:27 Temperature Source Skin 03/15/19 19:27 Pulse 76 03/15/19 19:27 Respiratory Rate 16 03/15/19 19:27 Respiratory Effort 03/15/19 19:33 Blood Pressure 135/79 03/15/19 19:27 Blood Pressure Position Sitting 03/15/19 19:27 Pulse Oximetry 97 03/15/19 19:27 Pain Level 10 03/15/19 19:27
[2019-03-15] MEDS: Normal Saline 1,000 ML 1000 ML IV (20:30)
[2019-03-15 20:36] LABS: Abs Immature Grans 0.01 k/cumm (0.0-0.09); Absolute Basophil Count 0.03 k/cumm (0.0-0.2); Absolute Eosinophil Count 0.16 k/cumm (0.0-0.7); Absolute Lymphocyte Count 1.85 k/cumm (1.2-3.4); Absolute Monocyte Count 0.58 k/cumm (0.11-0.7); Absolute Neutrophil Count 4.91 k/cumm (1.2-6.7); Basophils % 0.4; Eosinophils % 2.1; HCT 42.2 % (36.0-46.0); HGB 14.2 g/dL (12.0-15.5); Immature Grans % 0.1; Lymphocytes % 24.5; Mean Corp. HGB Concentration 33.6 g/dL (32.0-36.0); Mean Corpuscular Hemoglobin 32.5 pg (27.0-33.0); Mean Corpuscular Volume 96.6 fL (80-95); Mean Platelet Volume 10.2 fL (8.0-11.0); Monocytes % 7.7; Neutrophils % 65.2; Platelet Count 193 x1000/uL (130-400); RBC 4.37 m/cumm (4.00-5.20); RBC Distribution Width 11.8 % (11.7-14.6); White Blood Cell Count 7.54 k/cumm (4.4-10.8)
[2019-03-15 20:41] LABS: Lipase 113 U/L (73-393); Magnesium 1.9 mg/dL (1.8-2.4)
[2019-03-15] MEDS: Prochlorperazine 10 MG/2 ML VIAL IVP (20:53)
[2019-03-15] MEDS: Normal Saline Flush 10 ML SYR IVP (20:54)
--- NOTE | 2019-03-15 21:30 | NUR.NOTE ---
Pty not found in room, IV had been pulled out intact and left on bed. presumed eloped. MD Quan aware.
== END 2019-03-15 21:15 | disposition other institution (70) ==
PROVIDERS: Emergency Provider Emergency Medicine; PCP Internal Medicine
DX: R10.31 Right lower quadrant pain (principal); Z53.29 Procedure and treatment not carried out because of patient's decision for other reasons; R11.0 Nausea
CPT/HCPCS: 36415; 80053; 81025; 83690; 87449; 96361; 96374; 96375; 96376; 99284; 99285; 74177; 81003; 83735; 85025; 85610; 85730; 99283; J0780; J2405; J3010; J3490

== ENCOUNTER 2019-03-17 15:36 | Observation (INO) | payer MEDICAID, SELFPAY ==
[2019-03-17 15:47] VITALS: BP 132/82; PULSE 81; RESP 15; TEMP 37.5; O2SAT 98
[2019-03-17 15:48] VITALS: BP 132/82; PULSE 81; TEMP 37.5; O2SAT 98
[2019-03-17 16:43] LABS: Bilirubin Negative (Negative); Blood Trace-intact (Negative); Clarity Clear (Clear); Glucose Negative (Negative); Ketones Negative (Negative); Leukocyte Esterase Negative (Negative); Nitrite Negative (Negative); Urobilinogen 0.2 EU/dL (Up TO 0.2)
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
[2019-03-17 16:45] LABS: Bacteria Few HPF (Negative); C & S Indicated? No/Sq. Contamination; Casts Negative LPF (Negative); Crystals Negative HPF (Negative); Epithelial Cells Many HPF (Negative); Mucus Negative (Negative); RBC 0-2 HPF (0-2); WBC 0-2 HPF (0-5)
[2019-03-17 16:49] LABS: Abs Immature Grans 0.01 k/cumm (0.0-0.09); Absolute Basophil Count 0.04 k/cumm (0.0-0.2); Absolute Eosinophil Count 0.17 k/cumm (0.0-0.7); Absolute Lymphocyte Count 1.89 k/cumm (1.2-3.4); Absolute Monocyte Count 0.55 k/cumm (0.11-0.7); Absolute Neutrophil Count 4.16 k/cumm (1.2-6.7); Basophils % 0.6; Eosinophils % 2.5; HGB 14.8 g/dL (12.0-15.5); Immature Grans % 0.1; Lymphocytes % 27.7; Mean Corp. HGB Concentration 34.4 g/dL (32.0-36.0); Mean Corpuscular Hemoglobin 32.9 pg (27.0-33.0); Mean Corpuscular Volume 95.6 fL (80-95); Mean Platelet Volume 10.3 fL (8.0-11.0); Monocytes % 8.1; Platelet Count 211 x1000/uL (130-400); RBC Distribution Width 11.8 % (11.7-14.6); White Blood Cell Count 6.82 k/cumm (4.4-10.8)
[2019-03-17] MEDS: Normal Saline 1,000 ML 1000 ML IV (16:49)
[2019-03-17] MEDS: Ondansetron 4 MG/2 ML VIAL IVP ×2 (16:49→19:17)
[2019-03-17 16:59] LABS: ALT 52 U/L (14-59); AST 30 U/L (15-37); Albumin 3.8 g/dL (3.4-5.0); Alkaline Phosphatase 82 U/L (46-116); Anion Gap 9.5 mmol/L (3-11); BUN 9 mg/dL (7-18); Bilirubin, Total 0.2 mg/dL (0.2-1.0); CO2 29.5 mmol/L (21.0-32.0); CREATININE 0.63 mg/dL (0.55-1.02); Calcium 8.8 mg/dL (8.5-10.1); Chloride 106 mmol/L (98-107); Glucose 101 mg/dL (74-106); Potassium 3.8 mmol/L (3.5-5.1); Sodium 145 mmol/L (136-145); Total Protein 7.1 g/dL (6.4-8.2)
--- NOTE | 2019-03-17 18:18 | DI.CT_ITS ---
EXAM: CT ABDOMEN PELVIS W CLINICAL HISTORY: rlq PAIN R/O appey TECHNIQUE: Imaging Protocol: Axial computed tomography images with coronal and sagittal reformatted images were created and reviewed CONTRAST MATERIAL: Intravenous: Omnipaque 350 Contrast volume:100 mL contrast route:IV - Oral: Yes COMPARISON: CT ABDOMEN PELVIS W from 03/15/2019 FINDINGS: ABDOMEN: Lung Bases: Normal where visualized. Liver: Diffuse fatty infiltration. No measurable mass. Portal, superior mesenteric and splenic veins are patent. Gallbladder and biliary tract: Status post cholecystectomy. No biliary ductal dilatation. Pancreas: Normal density, no abnormal calcifications or inflammatory process. Spleen: Normal. Kidneys: Normal size, contour and axis. No radiodense stones or obstructive uropathy. No masses seen. Adrenal glands: No masses seen. Abdominal Aorta: Abdominal portion non-dilated. PELVIS: Bladder: Symmetric distention, no gross wall thickening. Bowel: No obstruction or bowel wall thickening. Normal appendix. Peritoneal cavity: No ascites, collection or mesenteric inflammatory response. Bones: Within normal limits. Reproductive organs: Within normal limits. Lymph nodes: Unremarkable. Impression: No evidence of an acute abdominal or pelvic process. DATA REPOSITORY: All CT scans at this facility are submitted to the National Radiology Data Registry (NRDR) Dose Index Registry (DIR) with the [employer] (ACR). RADIATION OPTIMIZATION: All CT scans at this facility use at least one of these dose optimization te chniques: automated exposure control; mA and/or kV adjustment per patient size (includes targeted exa ms where dose is matched to clinical indication); or iterative reconstruction.
[2019-03-17] MEDS: Omnipaque 350 MG/ML 50 ML BTL PO (18:19)
[2019-03-17] MEDS: Omnipaque 350 MG/ML 100 ML BTL IJ (18:20)
--- NOTE | 2019-03-17 18:34 | DI.VRAD_ITS ---
PROCEDURE INFORMATION: Exam: CT Abdomen And Pelvis With Contrast Exam date and time: 03/17/2019 6:21 PM Age: 33 years old Clinical indication: Abdominal pain TECHNIQUE: Imaging protocol: Computed tomography of the abdomen and pelvis with intravenous contrast. COMPARISON: CT ABDOMEN PELVIS W 03/15/2019 1:29 AM FINDINGS: Liver: Hepatic steatosis. No mass. Gallbladder and bile ducts: Cholecystectomy. No biliary ductal dilatation. Pancreas: Normal. No ductal dilation. Spleen: Normal. No splenomegaly. Adrenals: Normal. No mass. Kidneys and ureters: Normal. No hydronephrosis. Stomach and bowel: No acute findings. No obstruction. Appendix: No evidence of appendicitis. Intraperitoneal space: Unremarkable. No free air. No significant fluid collection. Vasculature: No abdominal aortic aneurysm. Lymph nodes: No significant adenopathy. Bladder: Unremarkable as visualized. Reproductive: Unremarkable as visualized. Bones/joints: No acute findings. Soft tissues: Unremarkable. IMPRESSION: No acute findings. Dictated and Authenticated by: Slim Win MD. Ordering:KARINA Peck MD
[2019-03-17 21:06] LABS: C-Reactive Protein < 0.05 mg/dL (0.0-0.3)
[2019-03-17 21:37] VITALS: BP 125/80; PULSE 64; RESP 16; TEMP 36.4; O2SAT 96
--- NOTE | 2019-03-17 21:58 | W.PM.HP.N ---
Date of service: 03/18/19 Time of Service: 07:59 Assessment and Plan Assessment and plan (1) Chronic pain syndrome: Status: Chronic (2) Endometriosis, unspecified: Status: Acute (3) Depressive disorder: Status: Acute (4) RLQ abdominal pain: Status: Acute Assessment and plan: no definitive etiology for her pain. Will admit for symptom control adn eval in am for poss appendectomy. History of Present Illness History of Present Illness Chief Complaint: rlq adom pain Consults Consult date: 03/17/19 Requesting physician: Grace Lim Narrative: Pt presented to the ED c/o RLQ pain. This is the 4th time she has been to the ED in 4 days. The pain started in the periumbilical region and has no localized to the RLQ. She reports nausea adn temp at home. There was no temp while she was in the ED. She is not . She does have a hx of endometriosis. Her GB is out at well. She has a hx of kidney stones. There was a trace of blood in urine and 0-2 RBC's. I would suspect more w/ kidney stones. She has no ovarian cysts on CT and is not . She says this does not feel like her typical kidney stone pain. the pain is pin-point in the RLQ. there is no rebound or guarding on the left. no rovsings. She is hungry and wants to eat. She has no s/s of dysuria. She has no epigastric pain or hx of stomach problems, H/I, GERD, etc. She has had no wt loss. She has had no diarrhea- has actually been constipated. she has had no rectal bleeding or dark tarry stools. There was no pelvic congestion in the pelvic veins. She has no Hx of IBD or IBS. No vaginal discharges or atypical bleeding. She has had no recent URT s/s. No one at home is ill. no recent raveling. no changes in medications or supplements. She denies recent trauma or accidents. She has had x2 CT's and mult sets up blood work that have all been nl. She was seen at another hosp and was told her is is not an appendicitis. At this point I don't see any etiology for her pain. no signs of infections/toxins/autoimmune Dx/drug Rx or overdose She will be admitted for symptom control and see how she feels in the am. Review of Systems All systems reviewed & are unremarkable except as noted in HPI and below PFSH Medical History Anemia Anxiety BMI 32.0-32.9,adult Depression 2013 Seen in ED with SI. Referred to counselor. Endometriosis of pelvis (~2009) Stage1. Flank pain (Acute) Have her sign a narcotics contract and explained narcotic she is to her as well as potential for abuse. Her recent use via [employer] prescription monitoring system showed no issues. Gave her enough Vicodin for 1 -3 times a day for a month, and asked her to call after her visit on November 27. Hepatic steatosis Hepatomegaly Kidney stones Lymphedema Patellofemoral dysfunction of left knee RLQ abdominal pain (Acute) Vitamin D deficiency Vulvodynia Surgical History Cholecystectomy (12/28/16) Diagnostic Laproscopy (03/03/10) Stage I endometriosis EGD - MAC Extracorporeal shock wave lithotripsy wisdom teeth extraction Family History Mother Diabetes Heart disease Hyperlipidemia Father Colon cancer Heart disease Hyperlipidemia Sister Hyperlipidemia Grandfather Diabetes Grandfather Diabetes Hyperlipidemia Asthma Grandmother Diabetes Personal history of malignant neoplasm Breast Heart disease Hyperlipidemia Grandmother No problems noted. Social History Smoking/Tobacco Use Status: Current every day Tobacco Type: cigarettes Alcohol Intake: current Alcohol Intake frequency: holidays/special occasions only Drug use: Never Substance use type: does not use Do you feel safe at home: Yes Do you feel safe in your relationship?: Yes Meds Home Medications and Allergies Home Medications Medication Instructions Recorded Confirmed Type Ibuprofen [Ibuprofen Ib] 600 mg PO Q6H PRN #0 07/12/18 03/17/19 Rx sertraline 50 mg tablet 50 mg PO DAILY #90 tab-cap 12/19/18 03/17/19 Rx trazodone 100 mg tablet 50 - 100 mg PO HS #120 tab-cap 12/19/18 03/17/19 Rx hydrocodone 5 mg-acetaminophen 325 1 tab PO TID PRN #90 tab MDD 3 02/18/19 03/17/19 Rx mg tablet pills Allergies Allergy/AdvReac Type Severity Reaction Status Date / Time cephalexin [Cephalexin] AdvReac Severe Abdominal Verified 03/17/19 21:35 Cramps sulfamethoxazole AdvReac Severe Nausea and Verified 03/17/19 21:35 [From Bactrim] vomiting trimethoprim [From Bactrim] AdvReac Severe Nausea and Verified 03/17/19 21:35 vomiting vancomycin AdvReac Severe diarrhea, Verified 03/17/19 21:35 redness Cephalosporins AdvReac Intermediate Diarrhea Verified 03/17/19 21:35 codeine phosphate AdvReac Intermediate Vomiting Verified 03/17/19 21:35 [From Tylenol-Codeine #3] ketorolac AdvReac Intermediate Cramping/vo Verified 03/17/19 21:35 mitting oxycodone AdvReac Intermediate Nausea/vomi Verified 03/17/19 21:35 tting tramadol AdvReac Intermediate Diarrhea Verified 03/17/19 21:35 Exam Const General: cooperative, healthy appearing, comfortable, no acute distress, well developed and well groomed Nutritional Appearance: average body habitus and well nourished Orientation: alert, awake and oriented x3 HENMT Head: normal to inspection, normocephalic and atraumatic Ears: hearing grossly normal bilaterally and external ears normal General nose exam: external nose normal Face and sinus: normal facial exam and sinuses nontender Mouth: oral mucosae normal, lip normal, tongue normal and moist mucous membranes Teeth and gingiva: dentition normal Eyes General: appearance normal, both eyes and all related structures Conjunctivae: conjunctivae normal Sclera: sclerae normal Pupils: PERRL Neck Neck: normal visual inspection and full ROM Chest Chest: normal inspection of the chest Resp Effort & Inspection: normal respiratory effort, able to speak in complete sentences, no cough, no nasal flaring, not tachypneic and no use of accessory muscles Auscultation: clear to auscultation bilaterally, no rales, no rhonchi and no wheezes Cardio Jugular venous pressure: no JVD Rate: regular rate Rhythm: regular rhythm GI Inspection: normal to inspection, no edema, non-distended, scar and striae Palpation: soft, no masses, tender (pin point pain at McBurney's point. no hernias. ) and No ascites Percussion: no fluid wave Auscultation: normal bowel sounds Skin General skin exam: no rashes or lesions noted Trauma: no lacerations or abrasions Neuro General: alert, oriented x3, oriented, gait normal, moves all extremities, no focal motor deficits and CN's II-XI intact bilaterally Cognition: normal cognition Speech: speech normal Gait: normal gait Motor: muscle tone normal throughout Extrem General: normal to inspection, full ROM and no clubbing, cyanosis or edema Psych Appearance: grossly normal and well kempt Mental Status: mental status grossly normal Speech and Movement: speech and movement normal Affect: normal affect Results Labs Result diagrams: 03/18/19 07:09 03/17/19 16:10 Labs: Laboratory Results - last 24 hr 03/17/19 03/17/19 03/17/19 15:45 16:10 16:10 WBC 6.82 RBC 4.50 Hgb 14.8 Hct 43.0 MCV 95.6 H MCH 32.9 MCHC 34.4 RDW 11.8 Plt Count 211 MPV 10.3 Immature Gran % 0.1 Neutrophils % 61.0 Lymphocytes % 27.7 Monocytes % 8.1 Eosinophils % 2.5 Basophils % 0.6 Absolute Neutrophils 4.16 Absolute Lymphocytes 1.89 Absolute Monocytes 0.55 Absolute Eosinophils 0.17 Absolute Basophils 0.04 Sodium 145 Potassium 3.8 Chloride 106 Carbon Dioxide 29.5 Anion Gap 9.5 BUN 9 Creatinine 0.63 Estimated GFR/1.73 m2 >= 60.00 Glucose 101 Calcium 8.8 Total Bilirubin 0.2 AST 30 ALT 52 Alkaline Phosphatase 82 C-Reactive Protein Total Protein 7.1 Albumin 3.8 Triglycerides Total Cholesterol LDL Cholesterol, Calc HDL Cholesterol Urine Color Yellow Urine Clarity Clear Urine pH 7.0 Ur Specific [place] 1.020 Urine Protein Negative Urine Ketones Negative Urine Blood Trace-intact H Urine Nitrite Negative Urine Bilirubin Negative Urine Urobilinogen 0.2 Ur Leukocyte Esterase Negative Urine RBC 0-2 Urine WBC 0-2 Ur Epithelial Cells Many Urine Crystals Negative Urine Bacteria Few Urine Casts Negative Urine Mucus Negative Ur Culture Indicated? No/sq. contamination Urine Glucose Negative 03/17/19 03/17/19 16:10 20:38 WBC RBC Hgb Hct MCV MCH MCHC RDW Plt Count MPV Immature Gran % Neutrophils % Lymphocytes % Monocytes % Eosinophils % Basophils % Absolute Neutrophils Absolute Lymphocytes Absolute Monocytes Absolute Eosinophils Absolute Basophils Sodium Potassium Chloride Carbon Dioxide Anion Gap BUN Creatinine Estimated GFR/1.73 m2 Glucose Calcium Total Bilirubin AST ALT Alkaline Phosphatase C-Reactive Protein < 0.05 Total Protein Albumin Triglycerides Cancelled Total Cholesterol Cancelled LDL Cholesterol, Calc Cancelled HDL Cholesterol Cancelled Urine Color Urine Clarity Urine pH Ur Specific [place] Urine Protein Urine Ketones Urine Blood Urine Nitrite Urine Bilirubin Urine Urobilinogen Ur Leukocyte Esterase Urine RBC Urine WBC Ur Epithelial Cells Urine Crystals Urine Bacteria Urine Casts Urine Mucus Ur Culture Indicated? Urine Glucose Last Vital Signs Temp 36.4 C L 03/17/19 21:37 Pulse 64 03/17/19 21:37 Resp 16 03/17/19 21:37 BP 125/80 03/17/19 21:37 Pulse Ox 96 03/17/19 21:37
[2019-03-17] MEDS: Lactated Ringers 1,000 ML 125 ML IV (22:06)
[2019-03-17] MEDS: Normal Saline Flush 10 ML SYR IVP (22:07)
[2019-03-17] MEDS: traZODone 100 MG TAB 50 MG PO (22:07)
[2019-03-17] MEDS: Sertraline 50 MG TAB PO (22:18)
[2019-03-18] VITALS: BP 116/71; PULSE 77; RESP 16; TEMP 36.7; O2SAT 93
[2019-03-18] MEDS: Normal Saline Flush 10 ML SYR IVP ×2 (01:22→03:40)
[2019-03-18] MEDS: MORPHine 2 MG/ML SYR IM/IV ×4 (01:22→11:01)
[2019-03-18] MEDS: Lactated Ringers 1,000 ML 125 ML IV (05:43)
[2019-03-18 07:00] VITALS: BP 131/84; PULSE 63; RESP 16; TEMP 36.7; O2SAT 95
[2019-03-18 07:21] LABS: Abs Immature Grans 0.02 k/cumm (0.0-0.09); Absolute Basophil Count 0.03 k/cumm (0.0-0.2); Absolute Lymphocyte Count 2.36 k/cumm (1.2-3.4); Absolute Monocyte Count 0.51 k/cumm (0.11-0.7); Absolute Neutrophil Count 2.81 k/cumm (1.2-6.7); Basophils % 0.5; Eosinophils % 3.4; HCT 38.2 % (36.0-46.0); HGB 13.1 g/dL (12.0-15.5); Immature Grans % 0.3; Lymphocytes % 39.8; Mean Corp. HGB Concentration 34.3 g/dL (32.0-36.0); Mean Corpuscular Volume 96.2 fL (80-95); Mean Platelet Volume 9.9 fL (8.0-11.0); Monocytes % 8.6; Neutrophils % 47.4; Platelet Count 189 x1000/uL (130-400); RBC 3.97 m/cumm (4.00-5.20); RBC Distribution Width 11.7 % (11.7-14.6); White Blood Cell Count 5.93 k/cumm (4.4-10.8)
--- NOTE | 2019-03-18 07:30 | W.PM.PROGNOT ---
Documented by User: REESE Sarah 03/18/19 07:32 Date of Service Date of service: 03/18/19 Time of Service: 07:30 Assessment and Plan Assessment and plan (1) RLQ abdominal pain: Status: Acute Assessment and plan: RLQ pain slightly improved with pain medications. Nausea- is responding well to Zofran. Continue IV hydration and NPO status. Subjective Subjective Interval history since last seen: Patient reports that her pain has not changed much overnight. Her pain continues to be in the RLQ which is associated with nausea without vomiting. She denies passing any flatus. Exam Const General: cooperative and comfortable Orientation: alert and oriented x3 Resp Effort & Inspection: normal respiratory effort, no audible wheezes and no cough GI Inspection: normal to inspection and non-distended Palpation: soft, no guarding and tender in the RLQ Auscultation: normal bowel sounds Objective Objective Clinical Data: Abnormal lab results 03/17/19 03/17/19 03/18/19 Range/Units 15:45 16:10 07:09 RBC 3.97 L (4.00-5.20) m/cumm MCV 95.6 H 96.2 H (80-95) fL Urine Blood Trace-intact H (Negative) Vital Signs Temperature 36.4 C L 03/17/19 21:37 Temperature Source Temporal Artery Scan 03/17/19 15:48 Pulse 64 03/17/19 21:37 Pulse Rhythm Regular 03/17/19 21:37 Respiratory Rate 16 03/17/19 21:37 Respiratory Effort Non-Labored 03/17/19 21:37 Respiratory Depth Normal 03/17/19 21:37 Respiratory Pattern Normal 03/17/19 21:37 Blood Pressure 125/80 03/17/19 21:37 Pulse Oximetry 96 03/17/19 21:37 Oxygen Delivery Method Room Air 03/17/19 21:37 Oxygen Flow Rate 0 03/17/19 21:37 Pain Level 7 03/18/19 03:41 Intake & Output 03/17/19 03/18/19 03/18/19 18:59 06:59 18:59 Intake Total Balance Weight 87.543 kg 87.7 kg Intake: IV 1952.083 / 1952.083 Other: Urine Appearance Clear Laboratory Results WBC 5.93 k/cumm (4.4-10.8) 03/18/19 07:09 RBC 3.97 m/cumm (4.00-5.20) L 03/18/19 07:09 Hgb 13.1 g/dL (12.0-15.5) 03/18/19 07:09 Hct 38.2 % (36.0-46.0) 03/18/19 07:09 MCV 96.2 fL (80-95) H 03/18/19 07:09 MCH 33.0 pg (27.0-33.0) 03/18/19 07:09 MCHC 34.3 g/dL (32.0-36.0) 03/18/19 07:09 RDW 11.7 % (11.7-14.6) 03/18/19 07:09 Plt Count 189 x1000/uL (130-400) 03/18/19 07:09 MPV 9.9 fL (8.0-11.0) 03/18/19 07:09 Immature Gran % 0.3 03/18/19 07:09 Neutrophils % 47.4 03/18/19 07:09 Lymphocytes % 39.8 03/18/19 07:09 Monocytes % 8.6 03/18/19 07:09 Eosinophils % 3.4 03/18/19 07:09 Basophils % 0.5 03/18/19 07:09 Absolute Neutrophils 2.81 k/cumm (1.2-6.7) 03/18/19 07:09 Absolute Lymphocytes 2.36 k/cumm (1.2-3.4) 03/18/19 07:09 Absolute Monocytes 0.51 k/cumm (0.11-0.7) 03/18/19 07:09 Absolute Eosinophils 0.20 k/cumm (0.0-0.7) 03/18/19 07:09 Absolute Basophils 0.03 k/cumm (0.0-0.2) 03/18/19 07:09 Sodium 145 mmol/L (136-145) 03/17/19 16:10 Potassium 3.8 mmol/L (3.5-5.1) 03/17/19 16:10 Chloride 106 mmol/L (98-107) 03/17/19 16:10 Carbon Dioxide 29.5 mmol/L (21.0-32.0) 03/17/19 16:10 Anion Gap 9.5 mmol/L (3-11) 03/17/19 16:10 BUN 9 mg/dL (7-18) 03/17/19 16:10 Creatinine 0.63 mg/dL (0.55-1.02) 03/17/19 16:10 Estimated GFR/1.73 m2 >= 60.00 (mL/min/1.73m2) 03/17/19 16:10 Glucose 101 mg/dL (74-106) 03/17/19 16:10 Calcium 8.8 mg/dL (8.5-10.1) 03/17/19 16:10 Total Bilirubin 0.2 mg/dL (0.2-1.0) 03/17/19 16:10 AST 30 U/L (15-37) 03/17/19 16:10 ALT 52 U/L (14-59) 03/17/19 16:10 Alkaline Phosphatase 82 U/L (46-116) 03/17/19 16:10 C-Reactive Protein < 0.05 mg/dL (0.0-0.3) 03/17/19 16:10 Total Protein 7.1 g/dL (6.4-8.2) 03/17/19 16:10 Albumin 3.8 g/dL (3.4-5.0) 03/17/19 16:10 Triglycerides Cancelled 03/17/19 20:38 Total Cholesterol Cancelled 03/17/19 20:38 LDL Cholesterol, Calc Cancelled 03/17/19 20:38 HDL Cholesterol Cancelled 03/17/19 20:38 Urine Color Yellow (Yellow) 03/17/19 15:45 Urine Clarity Clear (Clear) 03/17/19 15:45 Urine pH 7.0 (5-8) 03/17/19 15:45 Ur Specific [place] 1.020 (1.005-1.025) 03/17/19 15:45 Urine Protein Negative mg/dL (Negative) 03/17/19 15:45 Urine Ketones Negative mg/dL (Negative) 03/17/19 15:45 Urine Blood Trace-intact (Negative) H 03/17/19 15:45 Urine Nitrite Negative (Negative) 03/17/19 15:45 Urine Bilirubin Negative (Negative) 03/17/19 15:45 Urine Urobilinogen 0.2 EU/dL (Up TO 0.2) 03/17/19 15:45 Ur Leukocyte Esterase Negative (Negative) 03/17/19 15:45 Urine RBC 0-2 HPF (0-2) 03/17/19 15:45 Urine WBC 0-2 HPF (0-5) 03/17/19 15:45 Ur Epithelial Cells Many HPF (Negative) 03/17/19 15:45 Urine Crystals Negative HPF (Negative) 03/17/19 15:45 Urine Bacteria Few HPF (Negative) 03/17/19 15:45 Urine Casts Negative LPF (Negative) 03/17/19 15:45 Urine Mucus Negative (Negative) 03/17/19 15:45 Ur Culture Indicated? No/sq. contamination 03/17/19 15:45 Urine Glucose Negative mg/dL (Negative) 03/17/19 15:45 Documented by User: Elsie Salazar DO 03/24/19 12:01 Assessment and Plan Assessment and plan (1) RLQ abdominal pain: Status: Acute Assessment and plan: pt seen and examined. She has no documented temps. She c/o nausea- but also c/o that she is hungry and wants to eat. She is having diarrhea- but was not prior to coming to the ED. This is prob due to the CT contrast. Her labs are nl- not even a left shift. Her pain is still the same location and quantity. It is pinpoint without radiation at Burney's point. She has no htn or elevated HR. She is lying comfortably in bed c/o terrible pain and asking for narcotic pain meds every two hrs. She has a hx of kidney stones and flank pain- but she says this is different. She does have blood in her urine. But no sign of infections. No back pain. Does not c/o dysuria. She does not know where she is in her menstrual cycle.
[2019-03-18] MEDS: ACETAMINOPHEN 1,000 MG/100 ML BTL 400 MG IVPB (07:47)
[2019-03-18 07:53] LABS: Calculated LDL 121 mg/dL; Cholesterol 186 mg/dL (<200); HDL Cholesterol 25 mg/dL (40-60); Triglyceride 200 mg/dL (<150)
[2019-03-18 08:03] LABS: Amylase 43 U/L (25-115)
[2019-03-18 08:04] LABS: C-Reactive Protein < 0.05 mg/dL (0.0-0.3)
--- NOTE | 2019-03-18 13:05 | W.NUTCONSULT ---
Date of service: 03/18/19 Time of Service: 13:05 Nutritional Consult ASSESSMENT: 33 year old female admitted with chronic pain, endometriosis, depression. NPO today but was following regular diet, nursing reports good appetite. BMI indicates class 2 obesity. Not currently considered at nutritional risk. INTERVENTION: daily weight po intake monitoring Time Spent in Nutritional Counseling and Treatment: 0 time spent face to face
--- NOTE | 2019-03-18 14:03 | CHAPLAIN ---
Rosa was in bed, there were four people in the room with Rosa. She said she was waiting to hear back from the surgeon about if she needs surgery or not. She did not seem interested in further conversation, but I explained my role and offered support.
--- NOTE | 2019-03-18 14:43 | W.PM.DS.N ---
DS: Diagnosis Discharge Diagnosis (1) RLQ abdominal pain: Status: Acute Discharge Plan Disposition Patient Disposition: HOME Condition: Good Discharge Details Chief Complaint: Abd Prob Reason For Visit: RLQ ABDOM PAIN/GASTROENTERITIS/mesenteric adenitis Admit Date/Time: 03/17/19 20:25 Admit Provider: Elsie Salazar Attending Provider: Elsie Salazar Primary Care Provider: Mary Jo ED Provider: Liv Person Hospital Course Hospital Course: Pt ws admitted through the ED w/ RLQ pain. Pinpoint, no radiation. Has started in the RLQ dand always been in the RLQ. also nausea and stated she had a temp at home (none in ED or in the hosp). This was her 4th trip to the ED in as many days. She was at another Hosp ED and told her it was not surgical and treat at home conservatively. She returns to the ER on 03/22, c/o same s/s- RLQ pain, low grade temp and nausea. She had a CT w/ IV adn oral contrast that was read as nl by [facility]. I did review it personally and w/ radiology- no sign sof acute appy/abscess. No signs of Interventional Neuroradiologist problems. She is not . There were no hydros or sings of kidney stone- study was done w/ contrast. She does of a hx of kidney stones and did have blood in her urine- but she insists this is diff than when she has a kidney stone. Her lab work continues to remain nl and exam unchanged. She has good BS. no distention. no pain anywhere else. no rebound and guarding only in the RLQ. She continues to ask for narctotic pain meds every 2 hrs. She does not want tylenol or ibuprofen. At this point she is very hungry. She wants to eat. We did let her have some food and she feels good and would like to go home. I think she has a viral syndrome/mesenteric adenitis. I don't feel she has a surgical abdomen or any acute pathology requiring surgical exploration and the risks do not out way the benefits. continue w/ soft diet push fluids tylenol as needed. f/u PCP Home Meds and New Rx's Prescriptions: No Action sertraline 50 mg tablet 50 mg PO DAILY Qty: 90 RF: 11 trazodone 100 mg tablet 50 - 100 mg PO HS Qty: 120 RF: 4 hydrocodone-acetaminophen 5-325 mg tablet 1 tab PO TID MDD 3 pills PRN (Reason: pain) Qty: 90 RF: 0 Ibuprofen [Ibuprofen Ib] 200 MG tablet 600 mg PO Q6H PRNQty: 0 RF: 0 acetaminophen [Tylenol] 325 mg Capsule 325 mg PO PRN PRNRF: 0 nitrofurantoin monohyd/m-cryst [Macrobid] 100 mg capsule 100 mg PO Q12H Qty: 9 RF: 0 Discharge Instructions Instructions: Acute Abdominal Pain (DC) Additional Instructions: f/u PCP or monday -heat packs and ibuprofen for pain BRAT diet nausea meds prn Stand Alone Forms: Nursing Discharge Form Referrals: Kathryn Nichole NP [NURSE PRACTITIONER] - 03/22/19 1:20 pm Activity:: no heavy lifting or stenuous activity x 72 hrs Equipment/Supplies:: No Equipment Needed Diet:: BRAT diet Discharge Orders Discharge Orders: Discharge Order (Routine); Ordered 03/18/19 Ordered By: Elsie Salazar Discharge Data Discharge Date/Time-TO BE ENTERED AT DEPARTURE: 03/18/19 15:27 DS: Summary Status at Discharge Functional status at discharge: independent ambulation Overall status at discharge: patient is back to baseline Mental Status: mental status grossly normal Speech and Movement: speech and movement normal Mood: congruent mood Affect: normal affect Exam Psych Mental Status: mental status grossly normal Speech and Movement: speech and movement normal Mood: congruent mood Affect: normal affect DS: Data Vitals/I&O Vitals and I&O: Vital Signs Temperature 36.7 C 03/18/19 07:00 Temperature Source Tympanic 03/18/19 07:00 Pulse 63 03/18/19 07:00 Pulse Rhythm Regular 03/18/19 09:56 Respiratory Rate 16 03/18/19 07:00 Respiratory Effort Non-Labored 03/18/19 09:56 Respiratory Depth Normal 03/18/19 09:56 Respiratory Pattern Normal 03/18/19 09:56 Blood Pressure 131/84 03/18/19 07:00 Pulse Oximetry 95 03/18/19 07:00 Oxygen Delivery Method Room Air 03/18/19 07:00 Oxygen Flow Rate 0 03/18/19 07:00 Pain Level 7 03/18/19 11:01 Comment 03/18/19 00:00 Intake & Output 03/17/19 03/18/19 03/18/19 23:59 11:59 23:59 Intake Total 1000 / 1000 952.083 / 2.083 1100 / 2051.083 Balance 1000 / 1000 952.083 / 2.083 1100 / 2051.083 Weight 87.7 kg Intake: IV 1000 / 1000 952.083 / 2.083 1100 / 2051.083 Oral 0 / 0 Other: Urine Appearance Clear Comment PT OOB INDEP X 2 DURING NOC TO VOID. Voiding Methods Toilet Data Completed and Pending Labs on day of discharge: Labs from last 24 hours 03/18/19 03/18/19 03/17/19 07:09 07:04 20:38 WBC 5.93 RBC 3.97 L Hgb 13.1 Hct 38.2 MCV 96.2 H MCH 33.0 MCHC 34.3 RDW 11.7 Plt Count 189 MPV 9.9 Immature Gran % 0.3 Neutrophils % 47.4 Lymphocytes % 39.8 Monocytes % 8.6 Eosinophils % 3.4 Basophils % 0.5 Absolute Neutrophils 2.81 Absolute Lymphocytes 2.36 Absolute Monocytes 0.51 Absolute Eosinophils 0.20 Absolute Basophils 0.03 Sodium Potassium Chloride Carbon Dioxide Anion Gap BUN Creatinine Estimated GFR/1.73 m2 Glucose Calcium Total Bilirubin AST ALT Alkaline Phosphatase C-Reactive Protein < 0.05 Total Protein Albumin Triglycerides 200 Cancelled Total Cholesterol 186 Cancelled LDL Cholesterol, Calc 121 Cancelled HDL Cholesterol 25 L Cancelled Amylase 43 Urine Color Urine Clarity Urine pH Ur Specific [place] Urine Protein Urine Ketones Urine Blood Urine Nitrite Urine Bilirubin Urine Urobilinogen Ur Leukocyte Esterase Urine RBC Urine WBC Ur Epithelial Cells Urine Crystals Urine Bacteria Urine Casts Urine Mucus Ur Culture Indicated? Urine Glucose 03/17/19 03/17/19 03/17/19 16:10 16:10 16:10 WBC 6.82 RBC 4.50 Hgb 14.8 Hct 43.0 MCV 95.6 H MCH 32.9 MCHC 34.4 RDW 11.8 Plt Count 211 MPV 10.3 Immature Gran % 0.1 Neutrophils % 61.0 Lymphocytes % 27.7 Monocytes % 8.1 Eosinophils % 2.5 Basophils % 0.6 Absolute Neutrophils 4.16 Absolute Lymphocytes 1.89 Absolute Monocytes 0.55 Absolute Eosinophils 0.17 Absolute Basophils 0.04 Sodium 145 Potassium 3.8 Chloride 106 Carbon Dioxide 29.5 Anion Gap 9.5 BUN 9 Creatinine 0.63 Estimated GFR/1.73 m2 >= 60.00 Glucose 101 Calcium 8.8 Total Bilirubin 0.2 AST 30 ALT 52 Alkaline Phosphatase 82 C-Reactive Protein < 0.05 Total Protein 7.1 Albumin 3.8 Triglycerides Total Cholesterol LDL Cholesterol, Calc HDL Cholesterol Amylase Urine Color Urine Clarity Urine pH Ur Specific [place] Urine Protein Urine Ketones Urine Blood Urine Nitrite Urine Bilirubin Urine Urobilinogen Ur Leukocyte Esterase Urine RBC Urine WBC Ur Epithelial Cells Urine Crystals Urine Bacteria Urine Casts Urine Mucus Ur Culture Indicated? Urine Glucose 03/17/19 15:45 WBC RBC Hgb Hct MCV MCH MCHC RDW Plt Count MPV Immature Gran % Neutrophils % Lymphocytes % Monocytes % Eosinophils % Basophils % Absolute Neutrophils Absolute Lymphocytes Absolute Monocytes Absolute Eosinophils Absolute Basophils Sodium Potassium Chloride Carbon Dioxide Anion Gap BUN Creatinine Estimated GFR/1.73 m2 Glucose Calcium Total Bilirubin AST ALT Alkaline Phosphatase C-Reactive Protein Total Protein Albumin Triglycerides Total Cholesterol LDL Cholesterol, Calc HDL Cholesterol Amylase Urine Color Yellow Urine Clarity Clear Urine pH 7.0 Ur Specific [place] 1.020 Urine Protein Negative Urine Ketones Negative Urine Blood Trace-intact H Urine Nitrite Negative Urine Bilirubin Negative Urine Urobilinogen 0.2 Ur Leukocyte Esterase Negative Urine RBC 0-2 Urine WBC 0-2 Ur Epithelial Cells Many Urine Crystals Negative Urine Bacteria Few Urine Casts Negative Urine Mucus Negative Ur Culture Indicated? No/sq. contamination Urine Glucose Negative 03/17/19 17:34 Tonsil - Not Specified Streptococcus Screen (ANDREA) - Pending Preliminary micro results at discharge 03/17/19 17:34 Streptococcus Screen (ANDREA) - Pending Tonsil - Not Specified [facility] Medical History Anemia Anxiety BMI 32.0-32.9,adult Depression 2012 Seen in ED with SI. Referred to counselor. Endometriosis of pelvis (~2009) Stage1. Flank pain (Acute) Have her sign a narcotics contract and explained narcotic she is to her as well as potential for abuse. Her recent use via [place] prescription monitoring system showed no issues. Gave her enough Vicodin for 1 -3 times a day for a month, and asked her to call after her visit on November 27. Hepatic steatosis Hepatomegaly Kidney stones Lymphedema Patellofemoral dysfunction of left knee RLQ abdominal pain (Acute) Vitamin D deficiency Vulvodynia Surgical History Cholecystectomy (12/28/16) Diagnostic Laproscopy (03/03/10) Stage I endometriosis EGD - MAC Extracorporeal shock wave lithotripsy wisdom teeth extraction Family History Mother Diabetes Heart disease Hyperlipidemia Father Colon cancer Heart disease Hyperlipidemia Sister Hyperlipidemia Grandfather Diabetes Grandfather Diabetes Hyperlipidemia Asthma Grandmother Diabetes Personal history of malignant neoplasm Breast Heart disease Hyperlipidemia Grandmother No problems noted. Social History Smoking/Tobacco Use Status: Current every day Tobacco Type: cigarettes Alcohol Intake: never Drug use: Never Substance use type: does not use Do you feel safe at home: Yes Do you feel safe in your relationship?: Yes
--- NOTE | 2019-03-18 16:55 | PDOC.CMIN ---
- If Service Date Differs Date of service: 03/18/19 Time of Service: 16:55 Care Management Initial Assess REASON FOR HOSPITALIZATION:: RLQ abdominal pain PAST MEDICAL HISTORY/PAST SURGICAL HISTORY:: Medical History . Anemia. Anxiety. BMI 32.0-32.9,adult. Depression. 2013 Seen in ED with SI. Referred to counselor. Endometriosis of pelvis (~2009). Stage1. Flank pain (Acute). Have her sign a narcotics contract and explained narcotic she is to her as well as potential for abuse. Her recent use via [place] prescription monitoring system showed no issues. Gave her enough Vicodin for 1 -3 times a day for a month, and asked her to call after her visit on November 27. Hepatic steatosis. Hepatomegaly. Kidney stones. Lymphedema. Patellofemoral dysfunction of left knee. Vitamin D deficiency. Vulvodynia. Surgical History . Cholecystectomy (12/28/16). Diagnostic Laproscopy (03/03/10). Stage I endometriosis. EGD - MAC. Extracorporeal shock wave lithotripsy. wisdom teeth extraction PREVIOUS FUNCTIONAL STATUS/SOCIAL/FAMILY SUPPORTS:: Rosa lives in a single family home in [place], [place] with her boyfriend, son and parents. She is not currently employed and does not receive any community services. Rosa is independent at baseline with all care and activities. CURRENT FUNCTIONAL STATUS:: Rosa was sitting up in bed when CM met with her. She was polite and answered questions but did not fully engage. Rosa stated that she has been in pain for 4 days and that she has also been having diarrhea. She is receiving medications for nausea which seem to be helping. ADVANCE DIRECTIVES:: Given a copy to complete by CM at her request Has patient been provided with information about the portal?: No Did the patient sign up for the portal?: No CODE STATUS:: Full Code INSURANCE COVERAGE / FINANCIAL ISSUES:: Medicaid CURRENT HOME/COMMUNITY SERVICES/EQUIPMENT:: none PRIMARY CARE PHYSICIAN:: Hermelinda Jo POTENTIAL DISCHARGE NEEDS:: follow up with PCP and discharge plan of care PATIENT/FAMILY EDUCATION NEEDS:: Discharge plan, limitations, follow up plan, Ask Me Three ANTICIPATED BARRIERS TO DISCHARGE:: Rosa will be discharged home with no new services. She will transport with her boyfriend via private vehicle and follow up with her PCP and discharge plan of care.
--- NOTE | 2019-03-18 17:08 | PDOC.CMDIS ---
- If Service Date Differs Date of service: 03/18/19 Time of Service: 17:08 LACE Index Scoring Tool - Questions: Length of Stay (in days): 1 Acuity (Admit via E.D.?): Yes E.D. Visits: 17 - Answers: Total Score: 8 Risk of Readmission: Low Risk Care Management Discharge Reason for Hospitalization: RLQ abdominal pain Discharge Plan: Rosa will be discharged home with no new services. She will transport with her boyfriend via private vehicle and follow up with her PCP and discharge plan of care. Patient/Family Education Needs: Discharge plan, limitations, follow up plan, Ask Me Three
== END 2019-03-18 15:27 | disposition home or self-care (01) ==
LOC: ER 21:17 → MS 21:25
PROVIDERS: Admitting Provider Surgery; Emergency Provider Physician Assistant; PCP Internal Medicine; Visit Provider Surgery
DX: R10.31 Right lower quadrant pain (principal); G89.4 Chronic pain syndrome; N80.9 Endometriosis, unspecified; F32.9 Major depressive disorder, single episode, unspecified; Z87.442 Personal history of urinary calculi
CPT/HCPCS: 36415; 80053; 80061; 81025; 87880; 96361; 96374; 96375; 96376; 99222; 99233; 99238; 99285; 74177; 81003; 81015; 82150; 85025; 86140; 87081; J0131; J2270; J2405; J3490; Q9967

== ENCOUNTER 2019-03-20 22:04 | Emergency (ER) | payer MEDICAID, SELFPAY ==
[2019-03-20 22:10] VITALS: BP 146/87; PULSE 70; RESP 16; TEMP 36.7; O2SAT 97
--- NOTE | 2019-03-20 22:35 | W.ED.GENAD ---
Discharge Plan Disposition Patient Disposition: HOME Condition: Good Discharge Details Chief Complaint: Abd Prob Clinical Impression: Hematuria, Abdominal pain Primary Care Provider: Mary Jo ED Provider: Moises Skinner Home Meds and New Rx's Prescriptions: No Action sertraline 50 mg tablet 50 mg PO DAILY Qty: 90 RF: 11 trazodone 100 mg tablet 50 - 100 mg PO HS Qty: 120 RF: 4 hydrocodone-acetaminophen 5-325 mg tablet 1 tab PO TID MDD 3 pills PRN (Reason: pain) Qty: 90 RF: 0 Ibuprofen [Ibuprofen Ib] 200 MG tablet 600 mg PO Q6H PRNQty: 0 RF: 0 acetaminophen [Tylenol] 325 mg Capsule 325 mg PO PRN PRNRF: 0 Discharge Instructions Instructions: Hematuria (ED), Abdominal Pain (ED) Additional Instructions: At this time your labs are encouraging. If the white count, potassium is slightly low, however this is not a new thing. Please continue to eat your bananas at home. You do show evidence of blood, however there is no evidence of infection in your urine. I have sent out testing for urinary poor firings, as well as uric acid level in your urine. If these are positive I will contact you within the next 3 to 4 days. As we discussed please contact Dr. Salazar for follow-up, we will also be placing referral to her. Additionally please follow-up closely with your urologist. New can double your dose for your Vicodin occasionally to take 10 mg at a time however to be clear this will certainly lead to less available pills later. If you notice any worsening of your symptoms, or any new symptoms such as vomiting, diarrhea, fever, chills, shortness of breath, chest pain, numbness, weakness, or fainting , please return immediately to the emergency department for reevaluation. Please follow up with your primary care provider as soon as possible for reassessment and reevaluation. As always, it was a pleasure participating in your medical care today. Referrals: Mary Jo MD [Primary Care Provider] - Medical Decision Making This is a 33-year-old female with a past medical history of chronic abdominal pain for which she has been seen multiple times in the last year, including multiple CT scans, 2 of which have been performed the last month, both of which were negative for any acute process, as well as a history of endometriosis in the distant past for which she has had 2 ex lap's, in addition to previous kidney stones which have required removal with stenting and surgical management. She presents today for evaluation of right flank pain and right lower quadrant abdominal pain. Pain is described as sharp and achy which radiates from the right flank to the right lower quadrant of the abdomen. She states that symptoms are consistent with prior episodes that she has. She has noticed some blood in her urine which she also states is notably consistent with her multiple prior episodes. She does have Vicodin at home, and states that she has been taking these as directed and it has only slightly helped the pain. She denies any vomiting, diarrhea, fever, chills, chest pain, shortness of breath, numbness, tingling, weakness, dysuria, vaginal discharge, vaginal bleeding. Patient states that her goals tonight are comfort just so that she can sleep at home tonight. Of note she was recently admitted by our surgical staff Dr. Salazar, where she was offered an ex lap again, but declined. Patient does state that she has taken Tylenol and Motrin this evening. Patient denies any worsening of her symptoms with movement, eating, activity. No relieving factors otherwise. The only specific worsening symptoms she does describe is her pain worsening with she urinates. Also of note the test was negative less than 48 hours ago. Physical exam Demonstrates mild right CVA tenderness, mild right lower quadrant abdominal tenderness, both of which the patient assures me multiple times is consistent with the pain that she usually has, and also consistent and unchanged from the pain she has when she was CAT scan twice in the last month. No evidence of an acute surgical abdomen clinically. Urinalysis does show evidence of blood, bedside Wyman lamp demonstrates no evidence of fluorescence. Vital signs are stable. At this time differential is unique. She has been worked up multiple times for this chronic pain, and I feel appendicitis is notably unlikely and certainly inconsistent with her current clinical symptoms. I did personally review her last CAT scan, both my read and personal review there seems to be no evidence of large kidney stones to speak of. There is a chance that she may be suffering from radiopaque uric acid stones, however this is less likely. The patient also may be suffering from porphyria, but this is also less likely. Patient states specifically that her goals today are just to have some mild comfort so that she can sleep tonight. She does have a pain contract and she already does have Vicodin 5 mg for home use. I did discuss imaging options for the patient and at this time through notable discussion, weighing the risks and benefits, and a shared decision making process the patient has refused imaging at this time. Respecting the patient's wishes we will hold off on imaging. I will add a urine porphyria Biligin, as well as a urine uric acid level. We will get basic labs, evaluate her urine, and reassess. Also on differential I am concerned for potential recurrence of her endometriosis. I have encouraged her to follow-up with Dr. Salazar for potential ex lap. Also of note the patient has seen urology in the [place], where she had a cystoscopy recently. This was unremarkable. 11:49 PM Patient's laboratory work-up is returned, no significant evidence of infection, no white count, urinalysis negative for infection. It is positive for RBCs. Repeat assessment after pain medications patient is feeling better. We did again discuss CT assessment but she would like to hold off as she is feeling better. Renal function normal. I will send uric acid levels from the urine, evaluate for the potential of radiopaque stones. At this time the patient states that her pain is notably consistent with her chronic symptoms, that she feels better and would like to go home. Patient will be discharged home respecting her wishes. She also states that after our discussion she does feel it reasonable to reestablish care with Dr. Salazar for potential ex lap discussion. She will also be following up closely with her urologist in [place]. At this time on reassessment the patient shows no evidence of acute surgical abdomen, or other acute life-threatening abnormality. Patient will be discharged respecting her wishes. I have extensively reviewed the treatment plan and discharge instructions with the patient and their family. I have addressed all patient concerns at this time. The patient and family was made aware of what symptoms to monitor for that would warrant a return to the emergency department. Discussed the plan with the patient and family, they demonstrate verbal understanding and agreement with our assessment and plan at this time. HPI General Date/Time Provider Initiated Documentation: 03/20/19 22:04. HPI Narrative: This is a 33-year-old female with a past medical history of chronic abdominal pain for which she has been seen multiple times in the last year, including multiple CT scans, 2 of which have been performed the last month, both of which were negative for any acute process, as well as a history of endometriosis in the distant past for which she has had 2 ex lap's, in addition to previous kidney stones which have required removal with stenting and surgical management. She presents today for evaluation of right flank pain and right lower quadrant abdominal pain. Pain is described as sharp and achy which radiates from the right flank to the right lower quadrant of the abdomen. She states that symptoms are consistent with prior episodes that she has. She has noticed some blood in her urine which she also states is notably consistent with her multiple prior episodes. She does have Vicodin at home, and states that she has been taking these as directed and it has only slightly helped the pain. She denies any vomiting, diarrhea, fever, chills, chest pain, shortness of breath, numbness, tingling, weakness, dysuria, vaginal discharge, vaginal bleeding. Patient states that her goals tonight are comfort just so that she can sleep at home tonight. Of note she was recently admitted by our surgical staff Dr. Salazar, where she was offered an ex lap again, but declined. Patient does state that she has taken Tylenol and Motrin this evening. Patient denies any worsening of her symptoms with movement, eating, activity. No relieving factors otherwise. The only specific worsening symptoms she does describe is her pain worsening with she urinates. Also of note the test was negative less than 48 hours ago. Related Data Home Medications Medication Instructions Recorded Confirmed Ibuprofen [Ibuprofen Ib] 600 mg PO Q6H PRN #0 07/12/18 03/20/19 sertraline 50 mg tablet 50 mg PO DAILY #90 tab-cap 12/19/18 03/20/19 trazodone 100 mg tablet 50 - 100 mg PO HS #120 tab-cap 12/19/18 03/20/19 hydrocodone 5 mg-acetaminophen 325 1 tab PO TID PRN #90 tab MDD 3 02/18/19 03/20/19 mg tablet pills acetaminophen [Tylenol] 325 mg PO PRN PRN 03/20/19 03/20/19 Previous Rx's Medication Instructions Recorded Ibuprofen [Ibuprofen Ib] 600 mg PO Q6H PRN #0 07/12/18 sertraline 50 mg tablet 50 mg PO DAILY #90 tab-cap 12/19/18 trazodone 100 mg tablet 50 - 100 mg PO HS #120 tab-cap 12/19/18 hydrocodone 5 mg-acetaminophen 325 1 tab PO TID PRN #90 tab MDD 3 02/18/19 mg tablet pills Allergies Allergy/AdvReac Type Severity Reaction Status Date / Time cephalexin [Cephalexin] AdvReac Severe Abdominal Verified 03/17/19 21:35 Cramps sulfamethoxazole AdvReac Severe Nausea and Verified 03/17/19 21:35 [From Bactrim] vomiting trimethoprim [From Bactrim] AdvReac Severe Nausea and Verified 03/17/19 21:35 vomiting vancomycin AdvReac Severe diarrhea, Verified 03/17/19 21:35 redness Cephalosporins AdvReac Intermediate Diarrhea Verified 03/17/19 21:35 codeine phosphate AdvReac Intermediate Vomiting Verified 03/17/19 21:35 [From Tylenol-Codeine #3] ketorolac AdvReac Intermediate Cramping/vo Verified 03/17/19 21:35 mitting oxycodone AdvReac Intermediate Nausea/vomi Verified 03/17/19 21:35 tting tramadol AdvReac Intermediate Diarrhea Verified 03/17/19 21:35 General Stated Complaint: Abd Prob HALINA: 3 Review of Systems All systems reviewed & are unremarkable except as noted in HPI and below PFSH Surgical History Cholecystectomy (12/28/16) Diagnostic Laproscopy (03/03/10) Stage I endometriosis EGD - MAC Extracorporeal shock wave lithotripsy wisdom teeth extraction Social History Smoking/Tobacco Use Status: Current every day Tobacco Type: cigarettes Alcohol Intake: current Alcohol Intake frequency: holidays/special occasions only Drug use: Never Substance use type: does not use Do you feel safe at home: Yes Do you feel safe in your relationship?: Yes Exam Narrative Exam Narrative: 1.Const: Well-nourished, Well-developed, appearing stated age 2.Eyes: PERRL, no conjunctival injection, and symmetrical lids. 3.ENT: Atraumatic external nose and ears. Moist MM. Neck: Symmetric, trachea midline, No thyromegaly. 4.CVS: +S1/S2, No murmurs or gallops. Peripheral pulses 2+ and equal in all extremities. Brisk capillary refill in all extremities. 5.RESP: Unlabored respiratory effort. Clear to auscultation bilaterally. No wheezes rales or rhonchi 6.GI: Soft, Nondistended, No hepatosplenomegaly. No guarding or rebound. Very mild right CVA tenderness. No left CVA tenderness. Abdomen is for the most part nontender. She does demonstrate very mild tenderness in the right lower quadrant, however she states that this is notably consistent with her chronic pain. As well as the pain that she has had in the past with the last 2 times she was CAT scanned. 7.MSK: Normocephalic/Atraumatic, Extremities w/o deformity or ttp No cyanosis or clubbing, Normal movement of all extremities 8.Skin: Warm, Dry. No rashes or lesions. 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 Sensation grossly intact, no focal neurologic deficits. 10.Psych: (AAO) x3. Appropriate mood and affect Course Vital Signs Vital signs: Vital Signs Temperature 36.7 C 03/20/19 22:10 Pulse 70 03/20/19 22:10 Respiratory Rate 16 03/20/19 22:10 Blood Pressure 146/87 H 03/20/19 22:10 Pulse Oximetry 97 03/20/19 22:10 Temperature 36.7 C 03/20/19 22:10 Temperature Source Skin 03/20/19 22:10 Pulse 70 03/20/19 22:10 Respiratory Rate 16 03/20/19 22:10 Respiratory Effort 03/20/19 22:10 Blood Pressure 146/87 H 03/20/19 22:10 Pulse Oximetry 97 03/20/19 22:10 Oxygen Delivery Method Room Air 03/20/19 22:10 Oxygen Flow Rate 0 03/20/19 22:10
[2019-03-20] MEDS: Ondansetron 4 MG/2 ML VIAL IVP (22:48)
[2019-03-20 22:53] LABS: Abs Immature Grans 0.03 k/cumm (0.0-0.09); Absolute Basophil Count 0.04 k/cumm (0.0-0.2); Absolute Eosinophil Count 0.19 k/cumm (0.0-0.7); Absolute Lymphocyte Count 2.04 k/cumm (1.2-3.4); Absolute Monocyte Count 0.66 k/cumm (0.11-0.7); Absolute Neutrophil Count 4.96 k/cumm (1.2-6.7); Basophils % 0.5; Eosinophils % 2.4; HGB 14.1 g/dL (12.0-15.5); Immature Grans % 0.4; Lymphocytes % 25.8; Mean Corp. HGB Concentration 35.3 g/dL (32.0-36.0); Mean Corpuscular Volume 93.7 fL (80-95); Mean Platelet Volume 10.3 fL (8.0-11.0); Monocytes % 8.3; Neutrophils % 62.6; Platelet Count 223 x1000/uL (130-400); RBC 4.27 m/cumm (4.00-5.20); RBC Distribution Width 11.7 % (11.7-14.6); White Blood Cell Count 7.92 k/cumm (4.4-10.8)
[2019-03-20 22:55] LABS: Bilirubin Negative (Negative); Blood Large (Negative); Clarity Sl Cloudy (Clear); Glucose Negative (Negative); Ketones Trace mg/dL (Negative); Leukocyte Esterase Negative (Negative); Nitrite Negative (Negative); Specific Gravity 1.025 (1.005-1.025); Urobilinogen 0.2 EU/dL (Up TO 0.2); pH 6.5 (5-8)
[2019-03-20 23:03] LABS: ALT 42 U/L (14-59); AST 18 U/L (15-37); Albumin 3.7 g/dL (3.4-5.0); Alkaline Phosphatase 90 U/L (46-116); Anion Gap 12.3 mmol/L (3-11); BUN 9 mg/dL (7-18); Bilirubin, Total 0.2 mg/dL (0.2-1.0); CO2 25.7 mmol/L (21.0-32.0); Calcium 8.5 mg/dL (8.5-10.1); Chloride 105 mmol/L (98-107); Glucose 104 mg/dL (74-106); Potassium 3.3 mmol/L (3.5-5.1); Sodium 143 mmol/L (136-145); Total Protein 6.9 g/dL (6.4-8.2)
[2019-03-20 23:05] LABS: Bacteria Rare HPF (Negative); C & S Indicated? No; Casts Negative LPF (Negative); Crystals Negative HPF (Negative); Epithelial Cells Rare HPF (Negative); Mucus Negative (Negative); RBC >50 HPF (0-2); WBC Negative HPF (0-5)
--- NOTE | 2019-03-20 23:30 | NUR.NOTE ---
Nursing Note: Dr. Skinner in to discuss test results with patient
[2019-03-20 23:56] VITALS: BP 126/74; PULSE 68; RESP 16; O2SAT 96
[2019-03-27 11:08] LABS: Uric Acid Random Urine 78.6 mg/dL (See Note)
== END 2019-03-20 23:55 | disposition home or self-care (01) ==
PROVIDERS: Emergency Provider Student in an Organized Health Care Education/Training Program; PCP Internal Medicine
DX: R10.31 Right lower quadrant pain (principal); R31.9 Hematuria, unspecified
CPT/HCPCS: 80053; 96374; 96375; 96376; 99284; 81003; 81015; 84110; 84120; 84560; 85025; J2405

== ENCOUNTER 2019-03-22 20:58 | Emergency (ER) | payer MEDICAID, SELFPAY ==
[2019-03-22 21:03] VITALS: BP 144/84; PULSE 87; RESP 19; TEMP 37; O2SAT 98
--- NOTE | 2019-03-22 21:09 | W.ED.GENAD ---
Discharge Plan Disposition Patient Disposition: HOME Condition: Good Discharge Details Chief Complaint: Abd Prob Clinical Impression: Chronic abdominal pain Primary Care Provider: Mary Jo ED Provider: Cindi Brothers Home Meds and New Rx's Prescriptions: Continued sertraline 50 mg tablet 50 mg PO DAILY Qty: 90 RF: 11 trazodone 100 mg tablet 50 - 100 mg PO HS Qty: 120 RF: 4 hydrocodone-acetaminophen 5-325 mg tablet 1 tab PO TID MDD 3 pills PRN (Reason: pain) Qty: 90 RF: 0 Ibuprofen [Ibuprofen Ib] 200 MG tablet 600 mg PO Q6H PRNQty: 0 RF: 0 acetaminophen [Tylenol] 325 mg Capsule 325 mg PO PRN PRNRF: 0 Discharge Instructions Instructions: Chronic Pain (ED) Additional Instructions: Encourage water intake. Please continue medications as previously prescribed. Please contact gynecology on Monday to schedule follow-up appointment. Please keep your appointment next week with general surgery. If you develop new or worsening symptoms please seek care urgently once again. Referrals: Ying Glass MD [ [facility] STAFF PHYSICIAN] - Mary Jo MD [Primary Care Provider] - Discharge Data Discharge Date/Time-TO BE ENTERED AT DEPARTURE: 03/22/19 23:25 Medical Decision Making Patient is a 33-year-old female, well-known to myself not a cardiac, chief complaint of right lower quadrant pain. Patient is been seen here for this multiple times historically. She has known chronic pain. She has been taking her Vicodin as prescribed states that despite this,, aggressively these. She was seen here 2 days ago in a few days prior to that, both times for the same complaint. She denies any recent fevers or chills. States that she has been nauseated but denies any vomiting. She does endorse soft bowel movements with states that this is chronic and unchanged. Denies any watery bowel movements, no blood in her stool. She denies any recent travel. No recent antibiotics. Also has hematuria. Patient reports she had a cystoscopy from the beginning of last month at which time she reports that the findings were normal. She was diagnosed at that time with 1 pain hematuria syndrome. States that she has chronic right CVA tenderness associated with this. Patient is concerned that the right lower quadrant pain associated with endometriosis has this is been the source historically. She reports she had multiple laparoscopic surgeries to evaluate for this and has had good success with removal of endometrial tissue. She scheduled see general surgery next week and discuss possible repeat procedure. Patient has had multiple work-ups recently including imaging all of which is been found as significant abnormality. She reports no change in the pain. She is just concerned that it persists and is requesting further pain medication. On exam, patient is resting comfortably. She appears to be in no acute distress. She endorses right lower quadrant pain, lateral to McBurney's point, with palpation but no peritoneal findings were noted. Vital signs significant for hypertension at 144/84. Otherwise, vital signs within normal limits. She does have some right-sided CVA tenderness with patient reports that this is chronic. Not see any evidence of acute surgical pathology in her abdomen. This is not appear to be changed from previous evaluation do not feel that further imaging is warranted at this time and doing worry about increasing patient's risk associated with multitude of radiation. Will obtain screening labs and consult with surgery regarding her recurrent visits. Labs reviewed. No leukocytosis. Potassium slightly low at 3.3 with a stable for the patient. She does have a large amount of blood in her urine, this is not unusual for the patient. Negative leukocyte esterase, negative nitrite. Urine culture pending. Reevaluate the patient. She continues to have abdominal discomfort. Again, patient does not appear acutely septic. She appears nontoxic. No peritoneal findings on abdominal exam. Consulted with Dr. Whelan. She does not feel that the emergent surgical intervention needs to be performed. Patient does have upcoming appointment with Dr. Jones next Monday for consultation regarding exploratory laparotomy. It accompanied by that she keep his upcoming appointment. Also advised that she consider speaking with [facility] to discuss possible oral medication for endometriosis if this was a definitive diagnosis historically. Discussed this recommendation with the patient who is in agreement. She will keep her upcoming appointment with general surgery as well is contact [facility]. She was given return precautions. All of her questions and concerns were addressed and she is agreement with plan. HPI General Mode of arrival: ambulatory. Date/Time Provider Initiated Documentation: 03/22/19 21:09. Limitations to Documentation: no limitations. Information obtained by: patient and RN notes reviewed. History of Present Illness 33 year old F presents to the emergency department with the chief complaint of RLQ pain, described as severe and similar to prior episodes, with intensity rated at 10. Quality is described as sharp, and is localized to the abdomen (RLQ). Patient reports no radiation. Patient started experiencing this unknown (chronic, acute on chronic pain today) and it has been constant. No relieving factors improve symptom(s), No exacerbating factors reported . Patient notes other (hematuria, also chronic). Patient did receive the following treatments prior to arrival, other (vicodin) Related Data Home Medications Medication Instructions Recorded Confirmed Ibuprofen [Ibuprofen Ib] 600 mg PO Q6H PRN #0 07/12/18 03/22/19 sertraline 50 mg tablet 50 mg PO DAILY #90 tab-cap 12/19/18 03/22/19 trazodone 100 mg tablet 50 - 100 mg PO HS #120 tab-cap 12/19/18 03/22/19 hydrocodone 5 mg-acetaminophen 325 1 tab PO TID PRN #90 tab MDD 3 02/18/19 03/22/19 mg tablet pills acetaminophen [Tylenol] 325 mg PO PRN PRN 03/20/19 03/22/19 Previous Rx's Medication Instructions Recorded Ibuprofen [Ibuprofen Ib] 600 mg PO Q6H PRN #0 07/12/18 sertraline 50 mg tablet 50 mg PO DAILY #90 tab-cap 12/19/18 trazodone 100 mg tablet 50 - 100 mg PO HS #120 tab-cap 12/19/18 hydrocodone 5 mg-acetaminophen 325 1 tab PO TID PRN #90 tab MDD 3 02/18/19 mg tablet pills Allergies Allergy/AdvReac Type Severity Reaction Status Date / Time cephalexin [Cephalexin] AdvReac Severe Abdominal Verified 03/22/19 21:07 Cramps sulfamethoxazole AdvReac Severe Nausea and Verified 03/22/19 21:07 [From Bactrim] vomiting trimethoprim [From Bactrim] AdvReac Severe Nausea and Verified 03/22/19 21:07 vomiting vancomycin AdvReac Severe diarrhea, Verified 03/22/19 21:07 redness Cephalosporins AdvReac Intermediate Diarrhea Verified 03/22/19 21:07 codeine phosphate AdvReac Intermediate Vomiting Verified 03/22/19 21:07 [From Tylenol-Codeine #3] ketorolac AdvReac Intermediate Cramping/vo Verified 03/22/19 21:07 mitting oxycodone AdvReac Intermediate Nausea/vomi Verified 03/22/19 21:07 tting tramadol AdvReac Intermediate Diarrhea Verified 03/22/19 21:07 General Stated Complaint: Abd Prob HALINA: 3 Review of Systems Constitutional Constitutional: Reports as per HPI, Denies chills, Denies fatigue, Denies fever(s) and Denies headache(s) ENT Ears, Nose, Mouth, and Throat: Denies headache(s) Cardiovascular Cardiovascular: Reports as per HPI, Denies chest pain and Denies dyspnea Respiratory Respiratory: Reports as per HPI, Denies cough and Denies dyspnea Gastrointestinal Gastrointestinal: Reports as per HPI, Reports abdominal pain, Denies melena, Denies change in bowel habits (reports chronic soft BM, reports 3 today), Denies fecal incontinence, Denies diarrhea, Reports loose stools, Reports nausea, Denies vomiting and Denies hematemesis Genitourinary Genitourinary: Reports as per HPI, Denies abnormal vaginal bleeding, Reports hematuria, Denies urinary frequency, Denies genital pruritis, Denies dyspareunia, Denies dysuria, Reports flank pain, Denies urinary urgency, Denies vaginal discharge and Denies vaginal odor Musculoskeletal Musculoskeletal: Reports as per HPI and Denies back pain Integumentary/Breasts Skin/Breast: Reports as per HPI and Denies rash Neurologic Neurologic: Reports as per HPI and Denies headache(s) Endocrine Endocrine: Denies fatigue [facility] Medical History Anemia Anxiety BMI 32.0-32.9,adult Depression 2012 Seen in ED with SI. Referred to counselor. Endometriosis of pelvis (~2009) Stage1. Flank pain (Acute) Have her sign a narcotics contract and explained narcotic she is to her as well as potential for abuse. Her recent use via [employer] prescription monitoring system showed no issues. Gave her enough Vicodin for 1 -3 times a day for a month, and asked her to call after her visit on November 27. Hepatic steatosis Hepatomegaly Kidney stones Lymphedema Patellofemoral dysfunction of left knee RLQ abdominal pain (Acute) Vitamin D deficiency Vulvodynia Surgical History Cholecystectomy (12/28/16) Diagnostic Laproscopy (03/03/10) Stage I endometriosis EGD - MAC Extracorporeal shock wave lithotripsy wisdom teeth extraction Social History Smoking/Tobacco Use Status: Current every day Tobacco Type: cigarettes Alcohol Intake: never Drug use: Never Substance use type: does not use Do you feel safe at home: Yes Do you feel safe in your relationship?: Yes Exam Const General: cooperative, healthy appearing, comfortable, no acute distress and well developed Nutritional Appearance: average body habitus and well nourished Orientation: alert and awake HENMT Head: normal to inspection Mouth: moist mucous membranes Resp Effort & Inspection: normal respiratory effort, able to speak in complete sentences and no respiratory distress Auscultation: clear to auscultation bilaterally, no rales, no rhonchi and no wheezes Cardio Rate: regular rate Rhythm: regular rhythm Heart Sounds: S1 normal and S2 normal GI Inspection: normal to inspection, non-distended and scar (well healed incisions) Palpation: soft, no hepatosplenomegaly, no aortic enlargement, not firm, no guarding, no masses, not rigid, tender in the RLQ; not at McBurney's point (lateral to this), obturator sign negative, psoas sign negative and with no rebound tenderness and No ascites Percussion: normal to percussion Auscultation: normal bowel sounds Back/Spine/Pelvis Back: CVA tenderness (right) Skin General skin exam: no rashes or lesions noted Trauma: no lacerations or abrasions Neuro General: alert and awake Cognition: normal cognition Speech: speech normal Gait: normal gait Psych Appearance: grossly normal and well kempt Mental Status: mental status grossly normal Speech and Movement: speech and movement normal Course Vital Signs Vital signs: Vital Signs Temperature 37.0 C 03/22/19 21:03 Pulse 87 03/22/19 21:03 Respiratory Rate 19 03/22/19 21:03 Blood Pressure 144/84 H 03/22/19 21:03 Pulse Oximetry 98 03/22/19 21:03 Temperature 37.0 C 03/22/19 21:03 Temperature Source Skin 03/22/19 21:03 Pulse 87 03/22/19 21:03 Respiratory Rate 19 03/22/19 21:03 Blood Pressure 144/84 H 03/22/19 21:03 Blood Pressure Position Sitting 03/22/19 21:03 Pulse Oximetry 98 03/22/19 21:03 Oxygen Delivery Method Room Air 03/22/19 21:03 Oxygen Flow Rate 0 03/22/19 21:03 Pain Level 10 03/22/19 21:03
[2019-03-22] MEDS: HYDROmorphone 2 MG/ML VIAL 1 MG IVP ×2 (21:51→22:59)
[2019-03-22] MEDS: Ondansetron 4 MG/2 ML VIAL (21:51)
[2019-03-22] MEDS: Normal Saline 1,000 ML 1000 ML IV (21:52)
[2019-03-22] MEDS: Normal Saline Flush 10 ML SYR IVP (21:54)
[2019-03-22 22:03] LABS: Abs Immature Grans 0.02 k/cumm (0.0-0.09); Absolute Basophil Count 0.03 k/cumm (0.0-0.2); Absolute Lymphocyte Count 2.58 k/cumm (1.2-3.4); Absolute Monocyte Count 0.63 k/cumm (0.11-0.7); Absolute Neutrophil Count 5.62 k/cumm (1.2-6.7); Basophils % 0.3; Eosinophils % 2.2; HCT 41.7 % (36.0-46.0); HGB 14.4 g/dL (12.0-15.5); Immature Grans % 0.2 %; Lymphocytes % 28.4; Mean Corp. HGB Concentration 34.5 g/dL (32.0-36.0); Mean Corpuscular Hemoglobin 32.6 pg (27.0-33.0); Mean Corpuscular Volume 94.3 fL (80-95); Mean Platelet Volume 10.5 fL (8.0-11.0); Monocytes % 6.9; Platelet Count 196 x1000/uL (130-400); RBC 4.42 m/cumm (4.00-5.20); White Blood Cell Count 9.08 k/cumm (4.4-10.8)
[2019-03-22 22:04] LABS: Bilirubin Negative (Negative); Blood Large (Negative); Glucose Negative (Negative); Ketones Trace mg/dL (Negative); Leukocyte Esterase Negative (Negative); Nitrite Negative (Negative); Specific Gravity >= 1.030 (1.005-1.025); Urobilinogen 0.2 EU/dL (Up TO 0.2); pH 6.5 (5-8)
[2019-03-22 22:16] LABS: ALT 40 U/L (14-59); AST 22 U/L (15-37); Albumin 3.7 g/dL (3.4-5.0); Alkaline Phosphatase 83 U/L (46-116); Anion Gap 9.9 mmol/L (3-11); BUN 7 mg/dL (7-18); Bilirubin, Total 0.2 mg/dL (0.2-1.0); CO2 27.1 mmol/L (21.0-32.0); CREATININE 0.69 mg/dL (0.55-1.02); Calcium 8.6 mg/dL (8.5-10.1); Chloride 106 mmol/L (98-107); Glucose 83 mg/dL (74-106); Potassium 3.3 mmol/L (3.5-5.1); Sodium 143 mmol/L (136-145); Total Protein 6.9 g/dL (6.4-8.2)
[2019-03-22 22:21] LABS: Bacteria Many HPF (Negative); C & S Indicated? Yes; Casts Negative LPF (Negative); Clarity Sl Cloudy (Clear); Crystals Negative HPF (Negative); Epithelial Cells Few HPF (Negative); Mucus Negative (Negative); RBC >50 HPF (0-2)
[2019-03-22 22:23] LABS: Lipase 113 U/L (73-393)
[2019-03-22 22:58] VITALS: BP 129/79; PULSE 64; RESP 18; TEMP 36.8; O2SAT 98
[2019-03-22 22:59] LABS: HCG Qual (Urine) Negative
[2019-03-22 23:24] VITALS: BP 122/69; PULSE 78; RESP 17; O2SAT 99
== END 2019-03-22 23:25 | disposition home or self-care (01) ==
PROVIDERS: Emergency Provider Physician Assistant; PCP Internal Medicine
DX: R10.31 Right lower quadrant pain (principal); G89.29 Other chronic pain
CPT/HCPCS: 80053; 81025; 83690; 87077; 96361; 96374; 96376; 99284; 81003; 81015; 85025; 87086; 87186; J2405; J3490

== ENCOUNTER 2019-03-23 20:35 | Emergency (ER) | payer MEDICAID, SELFPAY ==
[2019-03-23 20:39] VITALS: BP 154/91; PULSE 83; RESP 18; TEMP 36.9; O2SAT 98
--- NOTE | 2019-03-23 21:02 | W.ED.GENAD ---
Discharge Plan Disposition Patient Disposition: HOME Condition: Good Discharge Details Chief Complaint: Abd Prob Clinical Impression: UTI (urinary tract infection), Chronic right flank pain, Right sided abdominal pain Primary Care Provider: Mary Jo ED Provider: Rory Chowdary [place] Meds and New Rx's Prescriptions: New nitrofurantoin monohyd/m-cryst [Macrobid] 100 mg capsule 100 mg PO Q12H Qty: 9 RF: 0 Continued sertraline 50 mg tablet 50 mg PO DAILY Qty: 90 RF: 11 trazodone 100 mg tablet 50 - 100 mg PO HS Qty: 120 RF: 4 hydrocodone-acetaminophen 5-325 mg tablet 1 tab PO TID MDD 3 pills PRN (Reason: pain) Qty: 90 RF: 0 Ibuprofen [Ibuprofen Ib] 200 MG tablet 600 mg PO Q6H PRNQty: 0 RF: 0 acetaminophen [Tylenol] 325 mg Capsule 325 mg PO PRN PRNRF: 0 Discharge Instructions Instructions: Urinary Tract Infection in Women (ED) Additional Instructions: Please contact your primary care doctor on Monday. Keep your surgical appointment on Monday. [facility] as recommended previously. Continue medications as before. Get your Macrobid prescription in the morning and continue to take for you UTI. Return to ED for fever, vomiting, new pain. Referrals: [facility] [Provider Group] Mary Jo MD [Primary Care Provider] - Elsie Salazar DO [OSTEOPATHIC DOCTOR] - Discharge Data Discharge Date/Time-TO BE ENTERED AT DEPARTURE: 03/23/19 22:40 Medical Decision Making Patient presenting with recurrent pain and nausea with continued hematuria. No fever or vomiting. Urine culture from yesterday is growing greater than 100,000 E. coli. Exam is unremarkable. Continues to have nonsurgical abdomen. I do not feel patient requires repeat imaging or labs today. Will treat her UTI with Macrobid as she does not tolerate cephalosporins or Bactrim. We will give 1 dose of IM Dilaudid and plan discharge to follow-up with primary care, general surgery, urology as previously instructed. Medical Records Medical records reviewed: Yes I reviewed the patient's medical records. HPI General Mode of arrival: ambulatory. Date/Time Provider Initiated Documentation: 03/23/19 20:41. Limitations to Documentation: no limitations. Information obtained by: patient, RN notes reviewed and old records reviewed. HPI Narrative: Patient presents with continued right back and abdominal pain with continued hematuria. Patient has been seen in the ED a number of times in the last couple of weeks for same. She had an admission to surgery as well. She has had laboratory studies and CAT scans. Previously had been worked up and was seen by urology in [place] with a cystoscopy being performed. There is no definitive etiology for her pain. Yesterday repeat labs were done which continued to be unremarkable. However, urine culture is growing greater than 100,000 E. coli at this point. She denies having fever. She has nausea but no vomiting. She continues to have hematuria. She continues to have pain which is unchanged in terms of location and description just a matter of severity. Related Data Home Medications Medication Instructions Recorded Confirmed Ibuprofen [Ibuprofen Ib] 600 mg PO Q6H PRN #0 07/12/18 03/23/19 sertraline 50 mg tablet 50 mg PO DAILY #90 tab-cap 12/19/18 03/23/19 trazodone 100 mg tablet 50 - 100 mg PO HS #120 tab-cap 12/19/18 03/23/19 hydrocodone 5 mg-acetaminophen 325 1 tab PO TID PRN #90 tab MDD 3 02/18/19 03/23/19 mg tablet pills acetaminophen [Tylenol] 325 mg PO PRN PRN 03/20/19 03/23/19 nitrofurantoin monohyd/m-cryst 100 mg PO Q12H #9 cap 03/23/19 [Macrobid] Previous Rx's Medication Instructions Recorded Ibuprofen [Ibuprofen Ib] 600 mg PO Q6H PRN #0 07/12/18 sertraline 50 mg tablet 50 mg PO DAILY #90 tab-cap 12/19/18 trazodone 100 mg tablet 50 - 100 mg PO HS #120 tab-cap 12/19/18 hydrocodone 5 mg-acetaminophen 325 1 tab PO TID PRN #90 tab MDD 3 02/18/19 mg tablet pills nitrofurantoin monohyd/m-cryst 100 mg PO Q12H #9 cap 03/23/19 [Macrobid] Allergies Allergy/AdvReac Type Severity Reaction Status Date / Time cephalexin [Cephalexin] AdvReac Severe Abdominal Verified 03/23/19 20:43 Cramps sulfamethoxazole AdvReac Severe Nausea and Verified 03/23/19 20:43 [From Bactrim] vomiting trimethoprim [From Bactrim] AdvReac Severe Nausea and Verified 03/23/19 20:43 vomiting vancomycin AdvReac Severe diarrhea, Verified 03/23/19 20:43 redness Cephalosporins AdvReac Intermediate Diarrhea Verified 03/23/19 20:43 codeine phosphate AdvReac Intermediate Vomiting Verified 03/23/19 20:43 [From Tylenol-Codeine #3] ketorolac AdvReac Intermediate Cramping/vo Verified 03/23/19 20:43 mitting oxycodone AdvReac Intermediate Nausea/vomi Verified 03/23/19 20:43 tting tramadol AdvReac Intermediate Diarrhea Verified 03/23/19 20:43 General Stated Complaint: Abd Prob HALINA: 3 Review of Systems Narrative: As documented in HPI otherwise negative as below. Const: no fever, chills, weakness Resp: no cough, SOB, pleuritic pain CV: no CP, diaphoresis, edema, syncope GI: abdominal pain, nausea; no vomiting, diarrhea Neuro: no headache, numbness, focal weakness, confusion PFSH Medical History Anemia Anxiety BMI 32.0-32.9,adult Depression 2012 Seen in ED with SI. Referred to counselor. Endometriosis of pelvis (~2009) Stage1. Flank pain (Acute) Have her sign a narcotics contract and explained narcotic she is to her as well as potential for abuse. Her recent use via [employer] prescription monitoring system showed no issues. Gave her enough Vicodin for 1 -3 times a day for a month, and asked her to call after her visit on November 27. Hepatic steatosis Hepatomegaly Kidney stones Lymphedema Patellofemoral dysfunction of left knee RLQ abdominal pain (Acute) Vitamin D deficiency Vulvodynia Surgical History Cholecystectomy (12/28/16) Diagnostic Laproscopy (03/03/10) Stage I endometriosis EGD - MAC Extracorporeal shock wave lithotripsy wisdom teeth extraction Social History Smoking/Tobacco Use Status: Current every day Tobacco Type: cigarettes Alcohol Intake: never Drug use: Never Substance use type: does not use Do you feel safe at home: Yes Do you feel safe in your relationship?: Yes Exam Narrative Exam Narrative: Vitals: Afebrile. Elevated blood pressure otherwise normal vitals and room air pulse ox. Const: WDWN female in NAD. HEENT: NC/AT. Normal facial exam. Eyes: Normal conjunctiva and sclera. Neck: Supple. Trachea midline. Lungs: Normal respiratory effort. GI: Soft. NT/ND. No guarding or rebound. Neuro: A+O x 3. CN grossly in tact. Good strength and no focal deficit. Ext: No C/C/E. Skin: Warm and dry without rash. Course Vital Signs Vital signs: Vital Signs Temperature 98.4 F 03/23/19 20:39 Pulse 83 03/23/19 20:39 Respiratory Rate 18 03/23/19 20:39 Blood Pressure 154/91 H 03/23/19 20:39 Pulse Oximetry 98 03/23/19 20:39 Temperature 98.4 F 03/23/19 20:39 Temperature Source Skin 03/23/19 20:39 Pulse 83 03/23/19 20:39 Respiratory Rate 18 03/23/19 20:39 Respiratory Effort Non-Labored 03/23/19 20:44 Blood Pressure 154/91 H 03/23/19 20:39 Blood Pressure Position Sitting 03/23/19 20:39 Pulse Oximetry 98 03/23/19 20:39 Oxygen Delivery Method Room Air 03/23/19 20:39 Oxygen Flow Rate 0 03/23/19 20:39 Pain Level 10 03/23/19 20:39
[2019-03-23] MEDS: HYDROmorphone 2 MG/ML VIAL IM (21:10)
[2019-03-23] MEDS: MacroBID 100 MG CAP PO (21:10)
[2019-03-23 22:31] VITALS: BP 122/69; PULSE 87; RESP 18; TEMP 36.8; O2SAT 98
== END 2019-03-23 22:40 | disposition home or self-care (01) ==
PROVIDERS: Emergency Provider Emergency Medicine; PCP Internal Medicine
DX: N39.0 Urinary tract infection, site not specified (principal); B96.20 Unspecified Escherichia coli [E. coli] as the cause of diseases classified elsewhere; R10.31 Right lower quadrant pain; M54.5 Low back pain; R31.9 Hematuria, unspecified
CPT/HCPCS: 96372; 99284

== ENCOUNTER 2019-04-09 20:24 | Emergency (ER) | payer MEDICAID, SELFPAY ==
[2019-04-09 20:29] VITALS: BP 135/81; PULSE 89; RESP 19; TEMP 37.5; O2SAT 97
--- NOTE | 2019-04-09 20:40 | ED.GENADUL_ITS ---
Discharge Plan Disposition Patient Disposition: HOME Condition: Good Discharge Details Chief Complaint: Abd Prob Clinical Impression: Epigastric abdominal pain Primary Care Provider: Mary Jo ED Provider: Rory Chowdary Jackson Meds and New Rx's Prescriptions: New omeprazole magnesium [Acid Hospital Medical Assistant (omeprazole)] 20 mg capsule,delayed release(DR/EC) 20 mg PO DAILY Qty: 30 RF: 0 Continued hydrocodone-acetaminophen 5-325 mg tablet 1 tab PO TID MDD 3 pills PRN (Reason: pain) Qty: 90 RF: 0 acetaminophen [Tylenol] 325 mg Capsule 325 mg PO PRN PRNRF: 0 trazodone 100 mg tablet 100 mg PO HS RF: 0 sertraline 50 mg tablet 50 mg PO HS RF: 0 Discontinued Ibuprofen [Ibuprofen Ib] 200 MG tablet 600 mg PO Q6H PRNQty: 0 RF: 0 Discharge Instructions Instructions: Epigastric Pain (ED) Additional Instructions: Your laboratory studies including cardiac enzyme, liver function, lipase remain normal. EKG is normal. Would avoid nonsteroidal medications and caffeine for now. We will start omeprazole. Contact your primary care in the morning for follow-up. Return to ED for fever, persistent vomiting, chest pain, new or worsening abdominal pain. Referrals: Mary Jo MD [Primary Care Provider] - Medical Decision Making Patient presenting with what she states is different abdominal pain than she typically has. She was seen by primary care. She was felt to have a benign abdomen and told to continue medications and stay in touch with them for follow- up. She came in here within a few hours of being seen. There is been no significant change. Her abdomen remains benign. She has had 2 CAT scans within the last 30 days which have been negative. I do not feel repeat imaging is necessary. She is describing a different pain. I will place an IV and treat for possible acid related disease. We will repeat her laboratory studies including LFTs and lipase. Doubt this is cardiac at all but will get EKG and troponin. Will reevaluate. Patient's repeat laboratory studies remain normal. EKG is normal. Troponin is negative. Lipase and liver function normal. Urine is also completely negative tonight. No blood, nitrites, leukocytes. Patient does report feeling better after treatment for acid related problems. I will have her avoid nonsteroidals and caffeine. I will start her on omeprazole. I will refer back to primary care. Medical Records Medical records reviewed: Yes I reviewed the patient's medical records. Lab Data Lab results reviewed: Yes I reviewed the patient's lab results. ECG Data Attestation: I personally reviewed and interpreted this ECG (s) as follows: Interpretation: Sinus rhythm at 72. Normal axis and intervals. Normal ST segments. HPI General Mode of arrival: ambulatory . Date/Time Provider Initiated Documentation: 04/09/19 20:35 . Limitations to Documentation: no limitations . Information obtained by: patient, RN notes reviewed and old records reviewed . HPI Narrative: Patient presents to ED with complaint of epigastric abdominal pain. Patient has history of right upper quadrant right flank right lower quadrant abdominal pain. She has been seen multiple times here for that. She has had scans, cystoscopy, urology consult. I last saw her on the fourth of this month. At that time she was supposed to see surgery on the . However, she reports that surgery contacted her and canceled her appointment feeling she did not need to be seen by surgery. She was treated for UTI when I last saw her. Patient reports developing a different pain that started this morning with nausea. This pain is in the epigastric area. Does not radiate anywhere. There is no chest pain. There is no shortness of breath. There is no fever. It is different than the pain she has been seen for previously. She was seen by primary care this afternoon. She was told to continue medications but had no labs or scans done and was told to follow-up and stay in contact with them if pain changes or gets worse. She did take her Vicodin this evening. Nothing has really changed since her visit but she came in for evaluation. Related Data Home Medications Medication Instructions Recorded Confirmed acetaminophen [Tylenol] 325 mg PO PRN PRN 03/20/19 04/09/19 hydrocodone 5 mg-acetaminophen 325 1 tab PO TID PRN #90 tab MDD 3 03/25/19 04/09/19 mg tablet pills omeprazole magnesium [Acid [facility] Medical Assistant 20 mg PO DAILY #30 cap 04/09/19 (omeprazole)] sertraline 50 mg PO HS 04/09/19 04/09/19 trazodone 100 mg PO HS 04/09/19 04/09/19 Previous Rx's Medication Instructions Recorded hydrocodone 5 mg-acetaminophen 325 1 tab PO TID PRN #90 tab MDD 3 03/25/19 mg tablet pills omeprazole magnesium [Acid Hospital Medical Assistant 20 mg PO DAILY #30 cap 04/09/19 (omeprazole)] Allergies Allergy/AdvReac Type Severity Reaction Status Date / Time cephalexin [Cephalexin] AdvReac Severe Abdominal Verified 04/09/19 17:33 Cramps sulfamethoxazole AdvReac Severe Nausea and Verified 04/09/19 17:33 [From Bactrim] vomiting trimethoprim [From Bactrim] AdvReac Severe Nausea and Verified 04/09/19 17:33 vomiting vancomycin AdvReac Severe diarrhea, Verified 04/09/19 17:33 redness Cephalosporins AdvReac Intermediate Diarrhea Verified 04/09/19 17:33 codeine phosphate AdvReac Intermediate Vomiting Verified 04/09/19 17:33 [From Tylenol-Codeine #3] ketorolac AdvReac Intermediate Cramping/vo Verified 04/09/19 17:33 mitting oxycodone AdvReac Intermediate Nausea/vomi Verified 04/09/19 17:33 tting tramadol AdvReac Intermediate Diarrhea Verified 04/09/19 17:33 General Stated Complaint: Abd Prob HALINA: 3 Review of Systems Narrative: As documented in HPI otherwise negative as below. Const: no fever, chills, weakness Resp: no cough, SOB, pleuritic pain CV: no CP, diaphoresis, edema, syncope GI: abdominal pain and nausea; no vomiting, slight diarrhea Neuro: no headache, numbness, focal weakness, confusion PFSH Medical History Anemia Anxiety BMI 32.0-32.9,adult Depression 2013 Seen in ED with SI. Referred to counselor. Endometriosis of pelvis (~2009) Stage1. Flank pain (Acute) Have her sign a narcotics contract and explained narcotic she is to her as well as potential for abuse. Her recent use via scroll kit prescription monitoring system showed no issues. Gave her enough Vicodin for 1 -3 times a day for a month, and asked her to call after her visit on November 27. Hepatic steatosis Hepatomegaly Kidney stones Lymphedema Patellofemoral dysfunction of left knee RLQ abdominal pain (Acute) Vitamin D deficiency Vulvodynia Surgical History Cholecystectomy (10/11/17) Diagnostic Laproscopy (03/03/10) Stage I endometriosis EGD - MAC Extracorporeal shock wave lithotripsy wisdom teeth extraction Social History Smoking/Tobacco Use Status: Current every day Tobacco Type: cigarettes Alcohol Intake: never Drug use: Never Substance use type: does not use Do you feel safe at home: Yes Do you feel safe in your relationship?: Yes Exam Narrative Exam Narrative: Vitals: Afebrile. Vital signs are normal with normal O2 saturation. Const: WDWN female in NAD. HEENT: NC/AT. Normal facial exam. Eyes: Normal conjunctiva and sclera. Neck: Supple. Trachea midline. Lungs: Normal respiratory effort. Lungs are clear. Cor: RRR without murmur/gallop. Good radial pulses. GI: Soft. NT/ND. No guarding or rebound. Neuro: A+O x 3. CN grossly in tact. Good strength and no focal deficit. Ext: No C/C/E. Skin: Warm and dry without rash. Course Vital Signs Vital signs: Vital Signs Temperature 99.5 F 04/09/19 20:29 Pulse 89 04/09/19 20:29 Respiratory Rate 19 04/09/19 20:29 Blood Pressure 135/81 04/09/19 20:29 Pulse Oximetry 97 04/09/19 20:29 Temperature 99.5 F 04/09/19 20:29 Temperature Source Skin 04/09/19 20:29 Pulse 89 04/09/19 20:29 Respiratory Rate 19 04/09/19 20:29 Respiratory Effort Non-Labored 04/09/19 20:32 Blood Pressure 135/81 04/09/19 20:29 Blood Pressure Position Sitting 04/09/19 20:29 Pulse Oximetry 97 04/09/19 20:29 Oxygen Delivery Method Room Air 04/09/19 20:29 Oxygen Flow Rate 0 04/09/19 20:29 Pain Level 9 04/09/19 20:29
[2019-04-09 21:12] LABS: Bilirubin Negative (Negative); Blood Negative (Negative); Clarity Clear (Clear); Glucose Negative (Negative); Ketones Negative (Negative); Leukocyte Esterase Negative (Negative); Nitrite Negative (Negative); Urobilinogen 0.2 EU/dL (Up TO 0.2)
[2019-04-09 21:31] LABS: Absolute Basophil Count 0.02 k/cumm (0.0-0.2); Absolute Eosinophil Count 0.11 k/cumm (0.0-0.7); Absolute Lymphocyte Count 2.03 k/cumm (1.2-3.4); Absolute Monocyte Count 0.56 k/cumm (0.11-0.7); Absolute Neutrophil Count 4.74 k/cumm (1.2-6.7); Basophils % 0.3; Eosinophils % 1.5; HGB 14.3 g/dL (12.0-15.5); Lymphocytes % 27.2; Mean Corpuscular Hemoglobin 32.4 pg (27.0-33.0); Mean Corpuscular Volume 95.2 fL (80-95); Mean Platelet Volume 10.4 fL (8.0-11.0); Monocytes % 7.5; Neutrophils % 63.5; Platelet Count 197 x1000/uL (130-400); RBC 4.41 m/cumm (4.00-5.20); RBC Distribution Width 11.9 % (11.7-14.6); White Blood Cell Count 7.46 k/cumm (4.4-10.8)
[2019-04-09] MEDS: Sucralfate 1 GM TAB PO (21:42)
[2019-04-09 21:43] LABS: ALT 34 U/L (14-59); AST 17 U/L (15-37); Albumin 3.7 g/dL (3.4-5.0); Alkaline Phosphatase 76 U/L (46-116); Anion Gap 9.4 mmol/L (3-11); BUN 9 mg/dL (7-18); Bilirubin, Total 0.3 mg/dL (0.2-1.0); CO2 27.6 mmol/L (21.0-32.0); CREATININE 0.63 mg/dL (0.55-1.02); Calcium 8.5 mg/dL (8.5-10.1); Chloride 106 mmol/L (98-107); Glucose 108 mg/dL (74-106); Potassium 3.6 mmol/L (3.5-5.1); Sodium 143 mmol/L (136-145); Total Protein 6.8 g/dL (6.4-8.2)
[2019-04-09] MEDS: FAMOTIDINE 20 MG/50 ML BAG 100 MG IVPB (21:45)
[2019-04-09 21:48] LABS: Lipase 70 U/L (73-393); Troponin I < 0.05 ng/Ml (<0.06)
[2019-04-09 22:20] VITALS: BP 134/80; PULSE 75; RESP 18; TEMP 36.7; O2SAT 97
== END 2019-04-09 22:25 | disposition home or self-care (01) ==
PROVIDERS: Emergency Provider Emergency Medicine; PCP Internal Medicine
DX: R10.13 Epigastric pain (principal); R19.7 Diarrhea, unspecified
CPT/HCPCS: 36415; 80053; 81025; 83690; 93005; 96365; 96368; 99284; 81003; 84484; 85025; 93010

== ENCOUNTER 2019-04-15 19:38 | Outpatient (REF) | payer MEDICAID, SELFPAY ==
[2019-04-15 19:54] LABS: Bacteria Moderate HPF (Negative); WBC 0-2 HPF (0-5)
[2019-04-15 19:55] LABS: Mucus Negative (Negative)
[2019-04-15 20:04] LABS: RBC 20-50 HPF (0-2)
[2019-04-15 20:25] LABS: C & S Indicated? No/Sq. Contamination; Epithelial Cells Moderate HPF (Negative)
[2019-04-15 20:26] LABS: Crystals Few Calcium Oxalate HPF (Negative)
== END 2019-04-15 19:58 ==
LOC: LBN 19:38
PROVIDERS: PCP Internal Medicine; Visit Provider Internal Medicine
DX: R31.9 Hematuria, unspecified (principal); R10.9 Unspecified abdominal pain; M54.5 Low back pain
CPT/HCPCS: 81015

== ENCOUNTER 2019-05-13 18:42 | Emergency (ER) | payer MEDICAID, SELFPAY ==
[2019-05-13 18:47] VITALS: BP 137/82; PULSE 75; RESP 14; TEMP 36.7; O2SAT 97
--- NOTE | 2019-05-13 19:06 | W.ED.GENAD ---
Discharge Plan Disposition Patient Disposition: HOME Condition: Stable Discharge Details Chief Complaint: Urinary Clinical Impression: Loin pain hematuria syndrome, Flank pain Primary Care Provider: Mary Davidson ED Provider: Cindi Brtohers Home Meds and New Rx's Prescriptions: Continued hydrocodone-acetaminophen 5-325 mg tablet 1 tab PO TID MDD 3 pills PRN (Reason: pain) Qty: 90 RF: 0 acetaminophen [Tylenol] 325 mg Capsule 325 mg PO PRN PRNRF: 0 trazodone 100 mg tablet 100 mg PO HS RF: 0 sertraline 50 mg tablet 50 mg PO HS RF: 0 omeprazole magnesium [Acid Supervisor Anodizing (omeprazole)] 20 mg capsule,delayed release(DR/EC) 20 mg PO DAILY Qty: 30 RF: 0 Discharge Instructions Instructions: Flank Pain (ED) Additional Instructions: Encourage water intake. Please continue with pain management as previously prescribed. I have asked our care managers to help arrange follow-up with chronic pain management as soon as possible. I have also asked that they try to move up your nephrology appointment. Outpatient ultrasound has been ordered, they will call you tomorrow to schedule appointment. Please follow-up with primary care this week for reevaluation. If you develop fever/chills, increased pain or other new/worsening symptoms please seek care urgently once again. Referrals: Mary Davidson MD [Primary Care Provider] - Discharge Data Discharge Date/Time-TO BE ENTERED AT DEPARTURE: 05/13/19 20:55 Medical Decision Making Patient is a 33-year-old female, accompanied by significant other, presents today with acute on chronic issue. Patient is well-known to myself in the department. She presents with persistent hematuria and right flank pain. Patient is scheduled to see nephrology in 1 month at [facility]. She has been seen by urology for this and has been diagnosed with 1 pain hematuria syndrome. Patient is chronically on Vicodin is taken 3 thus far today without any improvement in her discomfort. She denies any fevers or chills. No change in her bowel habits. Denies any abdominal pain. No shortness of breath or difficulty breathing. On exam, patient is resting comfortably. Abdomen is benign, lungs are clear. She indicates the right CVA area is area of discomfort but no evidence of large amount of discomfort with percussion or palpation of this area. No rash over this area. She denies any vaginal discharge. Patient is requesting IV, hydration and pain medication. I reviewed the PDMP and her very hesitant to give further narcotics for her chronic pain issues. I did review the literature on loin pain hematuria syndrome and feel that she needs prompt follow-up with nephrology as well as pain management. I did reach out to our home care and home health aides teacher regarding it pain management referral. She advised that the patient has been attempted to be contacted regarding chronic care coordination to discuss alternative options to manage this patient's chronic pain. However, patient has not been returning phone calls. I will discuss this with the patient. Plan to hydrate the patient, will check baseline labs. Will give IV acetaminophen. Patient has multiple allergies. I am going to hold off any further narcotics at this time as the patient does not appear to be uncomfortable at this time. Patient has had 4 CT scans in the past 6 months. I am hesitant to continue to perform CT imaging on this patient at this will increase her risk of radiation. Ideally, would be able to ultrasound this patient but ultrasounds not available this point. Again, the patient appears quite comfortable, I do not feel that emergent ultrasound is necessary. Will screen with baseline labs. If no emergent abnormalities are noted, will refer for outpatient ultrasound to be completed tomorrow. Labs reviewed, no leukocytosis, CMP normal with no change in kidney function, UA consistent with dx with large amount of bleed but no evidence of infection. Discussed these findings with [facility] patient. She has received IV hydration, IV acetaminophen. She continues to appear comfortable. Nontoxic. audience coordinator is going to try to get patient a f/u with pain management as soon as possible. Also have asked that the patient have her nephrology appointment moved up. Outpatient renal US has been ordered, patient will follow up for this testing tomorrow. She was given return precautions. Advised close f/u with PCP. All of her questions and concerns were addressed, she is in agreement iwht this plan. HPI General Mode of arrival: ambulatory. Date/Time Provider Initiated Documentation: 05/13/19 18:43. Limitations to Documentation: no limitations. Information obtained by: patient, family (significant other) and RN notes reviewed. History of Present Illness 33 year old F presents to the emergency department with the chief complaint of Right flank pain associated with loin pain hematuria syndrome, described as severe and similar to prior episodes, with intensity rated at 9. Quality is described as sharp, and is localized to the back (Right flank) and right. Patient reports no radiation. Patient started experiencing this year(s) and it has been constant (Worse today). No relieving factors improve symptom(s), No exacerbating factors reported . Patient notes denies chest pain, diaphoresis, fever/chills, loss of appetite, nausea/vomiting, shortness of breath and weakness. Patient did receive the following treatments prior to arrival, other (Vicodin) Related Data Home Medications Medication Instructions Recorded Confirmed acetaminophen [Tylenol] 325 mg PO PRN PRN 03/20/19 05/13/19 hydrocodone 5 mg-acetaminophen 325 1 tab PO TID PRN #90 tab MDD 3 03/25/19 05/13/19 mg tablet pills omeprazole magnesium [Acid Supervisor Anodizing 20 mg PO DAILY #30 cap 04/09/19 05/13/19 (omeprazole)] sertraline 50 mg PO HS 04/09/19 05/13/19 trazodone 100 mg PO HS 04/09/19 05/13/19 Previous Rx's Medication Instructions Recorded hydrocodone 5 mg-acetaminophen 325 1 tab PO TID PRN #90 tab MDD 3 03/25/19 mg tablet pills omeprazole magnesium [Acid Supervisor Anodizing 20 mg PO DAILY #30 cap 04/09/19 (omeprazole)] Allergies Allergy/AdvReac Type Severity Reaction Status Date / Time cephalexin [Cephalexin] AdvReac Severe Abdominal Verified 05/13/19 18:51 Cramps sulfamethoxazole AdvReac Severe Nausea and Verified 05/13/19 18:51 [From Bactrim] vomiting trimethoprim [From Bactrim] AdvReac Severe Nausea and Verified 05/13/19 18:51 vomiting vancomycin AdvReac Severe diarrhea, Verified 05/13/19 18:51 redness Cephalosporins AdvReac Intermediate Diarrhea Verified 05/13/19 18:51 codeine phosphate AdvReac Intermediate Vomiting Verified 05/13/19 18:51 [From Tylenol-Codeine #3] ketorolac AdvReac Intermediate Cramping/vo Verified 05/13/19 18:51 mitting oxycodone AdvReac Intermediate Nausea/vomi Verified 05/13/19 18:51 tting tramadol AdvReac Intermediate Diarrhea Verified 05/13/19 18:51 General Stated Complaint: Urinary HALINA: 3 Review of Systems Constitutional Constitutional: Reports as per HPI, Denies chills, Denies fatigue, Denies fever(s) and Denies headache(s) ENT Ears, Nose, Mouth, and Throat: Denies headache(s) Cardiovascular Cardiovascular: Reports as per HPI, Denies chest pain and Denies dyspnea Respiratory Respiratory: Reports as per HPI, Denies cough and Denies dyspnea Gastrointestinal Gastrointestinal: Reports as per HPI Genitourinary Genitourinary: Reports as per HPI Musculoskeletal Musculoskeletal: Reports as per HPI Neurologic Neurologic: Denies headache(s) Endocrine Endocrine: Denies fatigue [facility] Social History Smoking/Tobacco Use Status: Current every day Tobacco Type: cigarettes Alcohol Intake: never Drug use: Never Substance use type: does not use Do you feel safe at home: Yes Do you feel safe in your relationship?: Yes Exam Const General: cooperative, healthy appearing, comfortable, no acute distress and well developed Nutritional Appearance: well nourished and overweight Orientation: alert and awake HENMT Mouth: moist mucous membranes Resp Effort & Inspection: normal respiratory effort and no respiratory distress Auscultation: clear to auscultation bilaterally, no rales, no rhonchi and no wheezes Cardio Rate: regular rate Rhythm: regular rhythm Heart Sounds: S1 normal and S2 normal GI Inspection: normal to inspection, no edema and non-distended Palpation: soft, no hepatosplenomegaly, no guarding, no hernias, no pulsatile masses and nontender Percussion: normal to percussion Auscultation: normal bowel sounds Back/Spine/Pelvis Back: no CVA tenderness Skin General skin exam: no rashes or lesions noted Neuro General: alert and awake Cognition: normal cognition Speech: speech normal Gait: normal gait Psych Appearance: grossly normal and well kempt Mental Status: mental status grossly normal Speech and Movement: speech and movement normal Course Vital Signs Vital signs: Vital Signs Temperature 36.7 C 05/13/19 18:47 Pulse 75 05/13/19 18:47 Respiratory Rate 14 05/13/19 18:47 Blood Pressure 137/82 05/13/19 18:47 Pulse Oximetry 97 05/13/19 18:47 Temperature 36.7 C 05/13/19 18:47 Temperature Source Skin 05/13/19 18:47 Pulse 75 05/13/19 18:47 Respiratory Rate 14 05/13/19 18:47 Respiratory Effort 05/13/19 18:52 Blood Pressure 137/82 05/13/19 18:47 Blood Pressure Position Sitting 05/13/19 18:47 Pulse Oximetry 97 05/13/19 18:47 Oxygen Delivery Method Room Air 05/13/19 18:47 Oxygen Flow Rate 0 05/13/19 18:47 Pain Level 9 05/13/19 18:47
[2019-05-13 19:26] LABS: Bilirubin Negative (Negative); Blood Large (Negative); Clarity Sl Cloudy (Clear); Glucose Negative (Negative); Ketones Negative (Negative); Leukocyte Esterase Negative (Negative); Nitrite Negative (Negative); Specific Gravity >= 1.030 (1.005-1.025); Urobilinogen 0.2 EU/dL (Up TO 0.2); pH 6.5 (5-8)
[2019-05-13 19:35] LABS: Bacteria Negative HPF (Negative); C & S Indicated? No/Sq. Contamination; Casts Negative LPF (Negative); Crystals Negative HPF (Negative); Epithelial Cells Moderate HPF (Negative); Mucus Negative (Negative); Other Cells Negative (Negative); RBC >50 HPF (0-2)
[2019-05-13] MEDS: Normal Saline 1,000 ML 1000 ML IV (19:55)
[2019-05-13] MEDS: Normal Saline Flush 10 ML SYR IVP (19:55)
[2019-05-13] MEDS: ACETAMINOPHEN 1,000 MG/100 ML BTL 400 MG IVPB (20:08)
[2019-05-13 20:09] LABS: Abs Immature Grans 0.01 k/cumm (0.0-0.09); Absolute Basophil Count 0.03 k/cumm (0.0-0.2); Absolute Eosinophil Count 0.12 k/cumm (0.0-0.7); Absolute Lymphocyte Count 2.36 k/cumm (1.2-3.4); Absolute Monocyte Count 0.63 k/cumm (0.11-0.7); Absolute Neutrophil Count 6.82 k/cumm (1.2-6.7); Basophils % 0.3; Eosinophils % 1.2; HCT 41.5 % (36.0-46.0); HGB 14.3 g/dL (12.0-15.5); Immature Grans % 0.1 %; Lymphocytes % 23.7; Mean Corp. HGB Concentration 34.5 g/dL (32.0-36.0); Mean Corpuscular Hemoglobin 32.6 pg (27.0-33.0); Mean Corpuscular Volume 94.7 fL (80-95); Mean Platelet Volume 10.3 fL (8.0-11.0); Monocytes % 6.3; Neutrophils % 68.4; Platelet Count 227 x1000/uL (130-400); RBC 4.38 m/cumm (4.00-5.20); White Blood Cell Count 9.97 k/cumm (4.4-10.8)
[2019-05-13 20:18] LABS: ALT 39 U/L (14-59); AST 15 U/L (15-37); Albumin 3.8 g/dL (3.4-5.0); Alkaline Phosphatase 83 U/L (46-116); Anion Gap 9.3 mmol/L (3-11); BUN 11 mg/dL (7-18); Bilirubin, Total 0.2 mg/dL (0.2-1.0); CO2 26.7 mmol/L (21.0-32.0); CREATININE 0.67 mg/dL (0.55-1.02); Calcium 8.6 mg/dL (8.5-10.1); Chloride 107 mmol/L (98-107); Glucose 97 mg/dL (74-106); Potassium 3.6 mmol/L (3.5-5.1); Sodium 143 mmol/L (136-145)
[2019-05-13 20:47] VITALS: BP 127/68; PULSE 68; RESP 16; TEMP 36.7; O2SAT 99
--- NOTE | 2019-05-14 07:17 | NUR.NOTE ---
Referral faxed to [facility], Dr. Davidson.Nursing Note:
== END 2019-05-13 20:55 | disposition home or self-care (01) ==
PROVIDERS: Emergency Provider Physician Assistant; PCP Internal Medicine
DX: N39.8 Other specified disorders of urinary system (principal); R10.9 Unspecified abdominal pain
CPT/HCPCS: 80053; 96360; 96372; 99284; 81003; 81015; 85025; 99283; J0131

== ENCOUNTER 2019-07-16 11:17 | Emergency (ER) | payer MEDICAID, SELFPAY ==
[2019-07-16 11:24] VITALS: BP 137/84; PULSE 94; RESP 16; TEMP 36.7; O2SAT 97
[2019-07-16] MEDS: Normal Saline 1,000 ML 1000 ML IV (11:40)
[2019-07-16 11:42] LABS: Abs Immature Grans 0.01 k/cumm (0.0-0.09); Absolute Basophil Count 0.02 k/cumm (0.0-0.2); Absolute Eosinophil Count 0.13 k/cumm (0.0-0.7); Absolute Lymphocyte Count 2.06 k/cumm (1.2-3.4); Absolute Monocyte Count 0.42 k/cumm (0.11-0.7); Absolute Neutrophil Count 4.67 k/cumm (1.2-6.7); Basophils % 0.3; Eosinophils % 1.8; HCT 43.8 % (36.0-46.0); HGB 15.2 g/dL (12.0-15.5); Immature Grans % 0.1 %; Lymphocytes % 28.2; Mean Corp. HGB Concentration 34.7 g/dL (32.0-36.0); Mean Corpuscular Hemoglobin 33.3 pg (27.0-33.0); Mean Corpuscular Volume 95.8 fL (80-95); Mean Platelet Volume 10.5 fL (8.0-11.0); Monocytes % 5.7; Neutrophils % 63.9; Platelet Count 209 x1000/uL (130-400); RBC 4.57 m/cumm (4.00-5.20); RBC Distribution Width 12.2 % (11.7-14.6); White Blood Cell Count 7.31 k/cumm (4.4-10.8)
--- NOTE | 2019-07-16 11:48 | ED.GENADUL_ITS ---
Discharge Plan Disposition Patient Disposition: HOME Condition: Good Discharge Details Chief Complaint: FlankPain Clinical Impression: History of right flank pain Primary Care Provider: Kathryn Nichole ED Provider: Moises Skinner Home Meds and New Rx's Prescriptions: Continued hydrocodone-acetaminophen 5-325 mg tablet 1 tab PO Q8H MDD 3 pillls PRN (Reason: pain) Qty: 90 RF: 0 acetaminophen [Tylenol] 325 mg Capsule 325 mg PO PRN PRNRF: 0 trazodone 100 mg tablet 100 mg PO HS RF: 0 sertraline 50 mg tablet 50 mg PO HS RF: 0 omeprazole magnesium [Ac[facility] Professional (omeprazole)] 20 mg capsule,delayed release(DR/EC) 20 mg PO DAILY Qty: 30 RF: 0 Hold Instructions: Home Medication placed on hold at Doctor's office Discharge Instructions Instructions: Flank Pain (ED) Additional Instructions: At this time your urine shows no evidence of infection your labs are very reassuring. Your x-ray shows no concerning abnormality, and the ultrasound shows no abnormality. This may have been a passed stone or your chronic pain. Please follow-up closely with your primary care provider. Take the pain medication only as needed, take 1000 mg of Tylenol every 6 hours, but if you take the pain med it does have Tylenol in it so only take 500 mg of Tylenol with the pain medication. If you notice any worsening of your symptoms, or any new symptoms such as vomiting, diarrhea, fever, chills, shortness of breath, chest pain, numbness, weakness, or fainting , please return immediately to the emergency department for reevaluation. Please follow up with your primary care provider as soon as possible for reassessment and reevaluation. As always, it was a pleasure participating in your medical care today. Referrals: Kathryn Nichole, HARRIS [Primary Care Provider] - Discharge Data Discharge Date/Time-TO BE ENTERED AT DEPARTURE: 07/16/19 15:23 Medical Decision Making This is a 33-year-old female with a past medical history of chronic abdominal pain for which she has been seen multiple times in the last year, including multiple CT scansas well as a history of endometriosis in the distant past for which she has had 2 ex lap's, in addition to previous kidney stones which have required removal with stenting and surgical management. She presents today for evaluation of right flank pain, that started yesterday evening, g radual in onset, and has continued but notably got worse at 3 AM. She does have chronic hematuria states that this is unchanged. She has had nausea but no associated vomiting. She denies any radiation to her groin. She denies any numbness tingling or weakness. She denies fever, chills, chest pain, shortness of breath. She states that this feels identical to her previous kidney stones. She did run out of Vicodin today, but does state that it was helping prior to when she ran out. Patient has no other complaints at this time. No other modifying factors. Physical exam demonstrates nontender nonsurgical abdomen, mild right-sided CVA tenderness. Get labs, urine, hold off for these to decide for potential for CT imaging. Will treat the patient's pain and nausea. 4 PM Patient's laboratory work-up has returned notably unremarkable, vital signs remained stable, the patient is comfortably sitting on her bed texting currently. No white count, no bandemia or left shift. Electrolytes normal, renal function stable. Urinalysis shows large blood, no evidence of urinary tract infection. Urine blood is consistent with multiple prior urinalyses. I did offer a CT scan versus x-ray and ultrasound, the patient deferred to the latter. Ultrasound and x-ray showed no evidence of acute process, kidney stone, hydronephrosis or other abnormality. Patient's pain is notably improved at this time. I did again offer CAT scan after ultrasound and x-ray imaging. I did discuss imaging options for the patient and at this time through notable discussion, weighing the risks and benefits, and a shared decision making process the patient has refused imaging at this time. Patient is of an appropriate age to make decisions. The patient is of sound mind, appears clinically sober, and has capacity to make decisions by my clinical exam. Respecting the patient's wishes we will hold off on imaging. I did give the option of continued observation here in the ED versus discharge and the patient is requesting discharge. With resolution of her pain, no evidence of acute abnormality in her exam or imaging, and no signs of an acute surgical abdomen whatsoever and her signs and symptoms clinically at this time inconsistent with appendicitis I feel she can be discharged home respecting her wishes. I have extensively reviewed the treatment plan and discharge instructions with the patient. I have addressed all patient concerns at this time. The patient was made aware of what symptoms to monitor for that would warrant a return to the emergency department. Discussed the plan with the patient, they demonstrate verbal understanding and agreement with our assessment and plan at this time. FINDINGS: Renal ultrasound was performed according to the usual protocol. There is no evidence of hydronephrosis or nephrolithiasis. Kidneys are normal in size and shape. No renal mass or cyst identified. Urinary bladder is unremarkable in appearance with pre and postvoid urinary bladder volume measurements 220 cc and 0 cc respectively. Ureteral jets are noted bilaterally. IMPRESSION: Negative renal ultrasound FINDINGS: Two views of the abdomen were obtained. There are vascular clips in the right upper quadrant consistent with prior cholecystectomy. Unremarkable bowel gas pattern. No definite urinary tract calcifications seen. An incidental tiny right pelvic phlebolith is noted. HPI General Date/Time Provider Initiated Documentation: 07/16/19 11:33 . HPI Narrative: This is a 33-year-old female with a past medical history of chronic abdominal pain for which she has been seen multiple times in the last year, including multiple CT scansas well as a history of endometriosis in the distant past for which she has had 2 ex lap's, in addition to previous kidney stones which have required removal with stenting and surgical management. She presents today for evaluation of right flank pain, that started yesterday evening, gradual in onset, and has continued but notably got worse at 3 AM. She does have chronic hematuria states that this is unchanged. She has had nausea but no associated vomiting. She denies any radiation to her groin. She denies any numbness tingling or weakness. She denies fever, chills, chest pain, shortness of breath. She states that this feels identical to her previous kidney stones. She did run out of Vicodin today, but does state that it was helping prior to when she ran out. Patient has no other complaints at this time. No other modifying factors. Related Data Home Medications Medication Instructions Recorded Confirmed acetaminophen [Tylenol] 325 mg PO PRN PRN 03/20/19 07/16/19 omeprazole magnesium 20 mg 20 mg PO DAILY #30 cap 04/09/19 07/16/19 capsule,delayed release sertraline 50 mg PO HS 04/09/19 07/16/19 trazodone 100 mg PO HS 04/09/19 07/16/19 hydrocodone 5 mg-acetaminophen 325 1 tab PO Q8H PRN #90 tab MDD 3 06/11/19 07/16/19 mg tablet pillls Previous Rx's Medication Instructions Recorded omeprazole magnesium 20 mg 20 mg PO DAILY #30 cap 04/09/19 capsule,delayed release hydrocodone 5 mg-acetaminophen 325 1 tab PO Q8H PRN #90 tab MDD 3 06/11/19 mg tablet pillls Allergies Allergy/AdvReac Type Severity Reaction Status Date / Time cephalexin [Cephalexin] AdvReac Severe Abdominal Verified 07/16/19 11:30 Cramps sulfamethoxazole AdvReac Severe Nausea and Verified 07/16/19 11:30 [From Bactrim] vomiting trimethoprim [From Bactrim] AdvReac Severe Nausea and Verified 07/16/19 11:30 vomiting vancomycin AdvReac Severe diarrhea, Verified 07/16/19 11:30 redness Cephalosporins AdvReac Intermediate Diarrhea Verified 07/16/19 11:30 codeine phosphate AdvReac Intermediate Vomiting Verified 07/16/19 11:30 [From Tylenol-Codeine #3] ketorolac AdvReac Intermediate Cramping/vo Verified 07/16/19 11:30 mitting oxycodone AdvReac Intermediate Nausea/vomi Verified 07/16/19 11:30 tting tramadol AdvReac Intermediate Diarrhea Verified 07/16/19 11:30 General Stated Complaint: FlankPain HALINA: 3 Review of Systems All systems reviewed & are unremarkable except as noted in HPI and below PFSH Medical History (Updated 07/16/19 @ 15:09 by Moises Skinner DO) Anemia Anxiety BMI 32.0-32.9,adult Depression 2012 Seen in ED with SI. Referred to counselor. Endometriosis of pelvis (~2009) Stage1. Flank pain (Acute) Have her sign a narcotics contract and explained narcotic she is to her as well as potential for abuse. Her recent use via [employer] prescription monitoring system showed no issues. Gave her enough Vicodin for 1 -3 times a day for a month, and asked her to call after her visit on November 27. Hepatic steatosis Hepatomegaly Kidney stones Lymphedema Patellofemoral dysfunction of left knee RLQ abdominal pain (Acute) Vitamin D deficiency Vulvodynia Surgical History (Updated 06/28/19 @ 08:31 by Kathryn Nichole NP) Cholecystectomy (12/28/16) Diagnostic Laproscopy (03/03/10) Stage I endometriosis EGD - MAC Extracorporeal shock wave lithotripsy Status post endovenous radiofrequency ablation (RFA) of saphenous vein (Acute) for venous insufficiency 09/06/2018 wisdom teeth extraction Social History Smoking/Tobacco Use Status: Current every day Tobacco Type: cigarettes Alcohol Intake: never Drug use: Never Substance use type: does not use Do you feel safe at home: Yes Do you feel safe in your relationship?: Yes Exam Narrative Exam Narrative: 1.Const: Well-nourished, Well-developed, appearing stated age 2.Eyes: PERRL, no conjunctival injection, and symmetrical lids. 3.ENT: Atraumatic external nose and ears. Moist MM. Neck: Symmetric, trachea midline, No thyromegaly. 4.CVS: +S1/S2, No murmurs or gallops. Peripheral pulses 2+ and equal in all extremities. Brisk capillary refill in all extremities. 5.RESP: Unlabored respiratory effort. Clear to auscultation bilaterally. No wheezes rales or rhonchi 6.GI: Soft, Nontender/Nondistended, No hepatosplenomegaly. No guarding or rebound. No pain at McBurney's point, negative Tapia sign. Mild right CVA tenderness though. 7.MSK: Normocephalic/Atraumatic, Extremities w/o deformity or ttp No cyanosis or clubbing, Normal movement of all extremities 8.Skin: Warm, Dry. No rashes or lesions. 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 Sensation grossly intact, no focal neurologic deficits. 10.Psych: (AAO) x3. Appropriate mood and affect Course Vital Signs Vital signs: Vital Signs Temperature 36.7 C 07/16/19 11:24 Pulse 94 H 07/16/19 11:24 Respiratory Rate 16 07/16/19 11:24 Blood Pressure 137/84 07/16/19 11:24 Pulse Oximetry 97 07/16/19 11:24 Temperature 36.7 C 07/16/19 11:24 Pulse 94 H 07/16/19 11:24 Respiratory Rate 16 07/16/19 11:24 Respiratory Effort Non-Labored 07/16/19 11:29 Blood Pressure 137/84 07/16/19 11:24 Blood Pressure Position Sitting 07/16/19 11:24 Pulse Oximetry 97 07/16/19 11:24 Oxygen Delivery Method Room Air 07/16/19 11:24 Oxygen Flow Rate 0 07/16/19 11:24 Pain Level 10 07/16/19 11:24 Lab/Test Results Lab/Test Results: Laboratory Tests Range/Units 07/16/19 11:35 WBC (4.4-10.8) k/cumm 7.31 RBC (4.00-5.20) m/cumm 4.57 Hgb (12.0-15.5) g/dL 15.2 Hct (36.0-46.0) % 43.8 MCV (80-95) fL 95.8 H MCH (27.0-33.0) pg 33.3 H MCHC (32.0-36.0) g/dL 34.7 RDW (11.7-14.6) % 12.2 Plt Count (130-400) x1000/uL 209 MPV (8.0-11.0) fL 10.5 Immature Gran % % 0.1 Neutrophils % 63.9 Lymphocytes % 28.2 Monocytes % 5.7 Eosinophils % 1.8 Basophils % 0.3 Absolute Neutrophils (1.2-6.7) k/cumm 4.67 Absolute Lymphocytes (1.2-3.4) k/cumm 2.06 Absolute Monocytes (0.11-0.7) k/cumm 0.42 Absolute Eosinophils (0.0-0.7) k/cumm 0.13 Absolute Basophils (0.0-0.2) k/cumm 0.02
[2019-07-16 11:53] LABS: Bilirubin Negative (Negative); Blood Large (Negative); Clarity Cloudy (Clear); Glucose Negative (Negative); Ketones Negative (Negative); Leukocyte Esterase Negative (Negative); Nitrite Negative (Negative); Specific Gravity 1.025 (1.005-1.025)
[2019-07-16 11:54] LABS: Bacteria Negative HPF (Negative); C & S Indicated? No; Casts Negative LPF (Negative); Crystals Negative HPF (Negative); Epithelial Cells Few HPF (Negative); Mucus Negative (Negative); RBC >50 HPF (0-2); WBC Negative HPF (0-5)
[2019-07-16 11:55] LABS: ALT 48 U/L (14-59); AST 18 U/L (15-37); Albumin 3.8 g/dL (3.4-5.0); Alkaline Phosphatase 92 U/L (46-116); Anion Gap 6.7 mmol/L (3-11); BUN 6 mg/dL (7-18); Bilirubin, Total 0.2 mg/dL (0.2-1.0); CO2 28.3 mmol/L (21.0-32.0); CREATININE 0.76 mg/dL (0.55-1.02); Calcium 8.4 mg/dL (8.5-10.1); Chloride 103 mmol/L (98-107); Glucose 123 mg/dL (74-106); Potassium 3.6 mmol/L (3.5-5.1); Sodium 138 mmol/L (136-145); Total Protein 7.2 g/dL (6.4-8.2)
[2019-07-16] MEDS: Ondansetron 4 MG/2 ML VIAL IVP (12:01)
[2019-07-16] MEDS: ACETAMINOPHEN 1,000 MG/100 ML BTL 400 MG IVPB (12:09)
--- NOTE | 2019-07-16 12:30 | DI.US_ITS ---
EXAM: US RENAL CLINICAL HISTORY: right flank pain, r/o stone TECHNIQUE: Ultrasound performed using standard protocol. COMPARISON: US LOWER EXTREMITY VASCULAR LT from 05/11/2018 FINDINGS: Renal ultrasound was performed according to the usual protocol. There is no evidence of hydronephros is or nephrolithiasis. Kidneys are normal in size and shape. No renal mass or cyst identified. Urinary bladder is unremarkable in appearance with pre and postvoid urinary bladder volume measuremen ts 220 cc and 0 cc respectively. Ureteral jets are noted bilaterally. IMPRESSION: Negative renal ultrasound DATA REPOSITORY:
[2019-07-16] MEDS: HYDROmorphone 2 MG/ML VIAL 1 MG IVP ×3 (12:44→14:25)
[2019-07-16 13:02] VITALS: BP 116/71; PULSE 74; RESP 18; O2SAT 95
[2019-07-16 13:44] VITALS: BP 123/70; PULSE 68; RESP 18; O2SAT 97
--- NOTE | 2019-07-16 14:00 | DI.RAD_ITS ---
EXAM: XR ABDOMEN FLAT PLATE CLINICAL HISTORY: right flank pain, r/o stone TECHNIQUE: COMPARISON: INTRAVENOUS PYELOGRAM NO TOMOS from 08/28/2012 FINDINGS: Two views of the abdomen were obtained. There are vascular clips in the right upper quadrant consist ent with prior cholecystectomy. Unremarkable bowel gas pattern. No definite urinary tract calcifica tions seen. An incidental tiny right pelvic phlebolith is noted. IMPRESSION:
[2019-07-16 14:19] VITALS: BP 112/71; PULSE 66; RESP 18; O2SAT 94
--- NOTE | 2019-07-16 14:19 | NUR.NOTE ---
made aware that pt pain is back up to a 8/10Nursing Note:
[2019-07-16 15:09] VITALS: BP 120/71; PULSE 63; RESP 18; O2SAT 95
== END 2019-07-16 15:23 | disposition home or self-care (01) ==
PROVIDERS: Emergency Provider Student in an Organized Health Care Education/Training Program; PCP Nurse Practitioner
DX: R10.84 Generalized abdominal pain (principal); G89.29 Other chronic pain
CPT/HCPCS: 76770; 80053; 81025; 96361; 96374; 96375; 96376; 99285; 74018; 81003; 81015; 85025; 99284; J0131; J2405

== ENCOUNTER 2019-07-22 16:39 | Emergency (ER) | payer MEDICAID, SELFPAY ==
[2019-07-22 16:45] VITALS: BP 131/82; PULSE 80; RESP 14; TEMP 37.2; O2SAT 97
--- NOTE | 2019-07-22 17:00 | DI.CT_ITS ---
EXAM: CT RENAL COLIC WO Gated CLINICAL HISTORY: Right-sided pain, hematuria, history of stones. TECHNIQUE: Imaging Protocol: Axial computed tomography images with coronal and sagittal reformatted images were created and reviewed. CONTRAST MATERIAL: Without IV contrast. Without oral contrast. COMPARISON: CT ABDOMEN PELVIS W from 03/17/2019 FINDINGS: ABDOMEN: Lung Bases: Not visualized. Liver: Enlarged. Severe fatty infiltration. No measurable mass. Gallbladder and biliary tract: Status post cholecystectomy. No radiodense calculus or dilation. Pancreas: Normal density, no abnormal calcifications or inflammatory process. Spleen: Normal. Kidneys: Normal size, contour and axis. No radiodense stones or obstructive uropathy. No masses seen. Adrenal glands: No masses seen. Abdominal Aorta: Abdominal portion non-dilated. PELVIS: Bladder: Symmetric distention, no gross wall thickening. Bowel: No obstruction or bowel wall thickening. Normal appendix. Peritoneal cavity: No ascites, collection or mesenteric inflammatory response. Bones: Within normal limits. IMPRESSION: Hepatic steatosis. No evidence urinary tract calculi or hydronephrosis.. RADIATION DOSE DELIVERED: Total DLP DATA REPOSITORY: All CT scans at this facility are submitted to the National Radiology Data Registry (NRDR) Dose Index Registry (DIR) with the [employer] (ACR). RADIATION OPTIMIZATION: All CT scans at this facility use at least one of these dose optimization te chniques: automated exposure control; mA and/or kV adjustment per patient size (includes targeted exa ms where dose is matched to clinical indication); or iterative reconstruction.
[2019-07-22 17:03] LABS: Bilirubin Negative (Negative); Blood Large (Negative); Clarity Sl Cloudy (Clear); Glucose Negative (Negative); Ketones Negative (Negative); Leukocyte Esterase Negative (Negative); Nitrite Negative (Negative); Specific Gravity >= 1.030 (1.005-1.025); Urobilinogen 0.2 EU/dL (Up TO 0.2)
[2019-07-22 17:14] LABS: Bacteria Many HPF (Negative); C & S Indicated? Yes; Casts Negative LPF (Negative); Crystals Negative HPF (Negative); Epithelial Cells Few HPF (Negative); Mucus Moderate (Negative); RBC >50 HPF (0-2)
--- NOTE | 2019-07-22 17:47 | DI.VRAD_ITS ---
PROCEDURE INFORMATION: Exam: CT Abdomen And Pelvis Without Contrast Exam date and time: 07/22/2019 5:13 PM Age: 33 years old Clinical indication: Abdominal pain; Localized; Patient HX: Right-sided pain, hematuria, history of stones TECHNIQUE: Imaging protocol: Computed tomography of the abdomen and pelvis without contrast. COMPARISON: CT renal colic wo 10/16/2018 4:39 PM FINDINGS: Liver: Liver is enlarged. Fatty infiltration of the liver. Gallbladder and bile ducts: Cholecystectomy clips. Pancreas: Normal. No ductal dilation. Spleen: Normal. No splenomegaly. Adrenals: Normal. No mass. Kidneys and ureters: Normal. No hydronephrosis. Stomach and bowel: Unremarkable. No obstruction. No mucosal thickening. Appendix: No evidence of appendicitis. Intraperitoneal space: Unremarkable. No free air. No significant fluid collection. Vasculature: Unremarkable. No abdominal aortic aneurysm. Lymph nodes: Unremarkable. No enlarged lymph nodes. Bladder: Unremarkable as visualized. Reproductive: Unremarkable as visualized. Bones/joints: Unremarkable. No acute fracture. Soft tissues: Unremarkable. IMPRESSION: Hepatomegaly with hepatic steatosis. No acute abdominal or pelvic abnormality. Dictated and Authenticated by: Duane Ulloa MD. Ordering:JOVAN Brandon MD
--- NOTE | 2019-07-22 18:06 | ED.GENADUL_ITS ---
Discharge Plan Disposition Patient Disposition: AGAINST MEDICAL ADVICE Discharge Details Chief Complaint: Urinary Clinical Impression: Hematuria, Chronic pain Primary Care Provider: Kathryn Nichole ED Provider: Aleksandr Green Home Meds and New Rx's Prescriptions: No Action acetaminophen [Tylenol] 325 mg Capsule 325 mg PO PRN PRNRF: 0 trazodone 100 mg tablet 100 mg PO HS RF: 0 sertraline 50 mg tablet 50 mg PO HS RF: 0 Discharge Data Discharge Date/Time-TO BE ENTERED AT DEPARTURE: 07/22/19 18:09 Medical Decision Making This is a 33-year-old female presents to the ER reporting a increase in her chronic pain and nausea, this is associated with chronic hematuria. She appears well, nontoxic and in absolutely no acute distress. Vital signs are unremarkable. I was able to review her recent ER visit on 07-15 and also review the telemedicine appointment and care management plan from 07-18. Patient believes that she likely requires a CT today for further work-up of her chronic symptoms as well as requesting IV pain medications. She tells me that she is in the process of being referred to nephrology for a renal biopsy. I did review the care management and telemedicine appointments, appears that her pain contract has , they reported multiple ER visits receiving narcotic medication. It appears as though there has been some noncompliance with follow- up of her outpatient appointments. She was prescribed 14 tablets of a narcotic medication in the attempt to slowly wean her down and they will initiate pain management outpatient appointment. I explained to the patient that we could certainly repeat routine laboratory values to see if they have changed from her last visit, urinalysis, and obtain CT imaging of her abdomen and pelvis without contrast for her hematuria and possible stone. She is comfortable with this plan but does request pain medication. I explained to her at this time I saw no clear emergent [place] for narcotic medication and after reviewing the recent notes from 07-18, I did not believe it is in her best interest to receive additional narcotic medication through the ER. If her CT does come back positive showing emergent process I would be more than happy to provide her with additional pain medication. She is allergic to Toradol and tramadol. She reports at the last visit she received IV Tylenol. At this time her CT is without contrast and there is no clear indication for initiating IV therapy. Patient is comfortable with this plan. Upon reevaluation patient is resting comfortably in room 4 on the hospital stretcher using her cell phone. She did just come back from CT, labs have not been drawn as lab came over to draw the labs while she was in CT. I did let her know that her urinalysis revealed hematuria but nothing else of worry. Patient was offered 1 g p.o. Tylenol. At this time she requests to leave the ER and reports to me I can take Tylenol at home. CT was obtained but not resulted, laboratory values have not been drawn, lab is actively on their way to the ER to draw her labs. She understands the risk and wishes to leave AGAINST MEDICAL ADVICE. I did recommend she reach out to her primary care provider tomorrow to discuss pain management options. Patient appears clinically sober, is of sound mind, and based upon my clinical examination has the capacity to make their own decisions. We have offered treatment options and discussed the the risks and benefits of these options and refusing these options, including and/or disability specific to the patient's pathology. Pt is able to discuss and understands the risks and benefits and alternatives of treatment and refusing treatment. We have tried to involve the patient's family or support group that was present here or by contacting them on the phone. The patient still chooses to leave before evaluation and treatment can be completed AGAINST MEDICAL ADVICE. Upon patient leaving the ER she ambulated well. Lab did go to her exam room prior to her leaving however she declined laboratory values. Of note I followed her CT abdomen and pelvis without contrast after she left. Virtual radiology read the report as hepatomegaly with hepatic steatosis. No acute abdominal or pelvic abnormality. Medical Records Medical records reviewed: Yes I reviewed the patient's medical records. HPI General Mode of arrival: ambulatory . Date/Time Provider Initiated Documentation: 07/22/19 16:41 . Limitations to Documentation: no limitations . Information obtained by: patient . HPI Narrative: This is a 33-year-old female with a history of chronic hematuria, right sided back-flank discomfort, loin pain hematuria syndrome, depression, renal stone, lymphedema of the left lower extremity, anxiety, depression, endometriosis, presenting to the ER today reporting increase of her chronic pain. She reports increased over the past 2 days, associated with her normal hematuria, nausea, but no vomiting. Pain is primarily in the right side of her back and slightly into her flank but denies any true abdominal pain. She reports that she was seen here last week for the same, normal labs, plain film, ultrasound. She reports that her primary care provider is scheduling an outpatient appointment with nephrology for renal biopsy however this is not scheduled yet. She last took oral pain medication around 2:00 this afternoon. Denies any recent illness or trauma. She denies any fever, chest pain, cough, shortness of breath, numbness, tingling, weakness. She reports that her pain is moderate to severe. She denies any dysuria, vaginal bleeding or discharge, diarrhea or constipation. She is requesting pain medication. She tells me that during her last visit she was given IV Tylenol and a medication that starts with a D. She states that she was told after her last work-up if she was not feeling better than CT imaging was likely the next step before the biopsy. Related Data Home Medications Medication Instructions Recorded Confirmed acetaminophen [Tylenol] 325 mg PO PRN PRN 03/20/19 07/22/19 sertraline 50 mg PO HS 04/09/19 07/22/19 trazodone 100 mg PO HS 04/09/19 07/22/19 Allergies Allergy/AdvReac Type Severity Reaction Status Date / Time cephalexin [Cephalexin] AdvReac Severe Abdominal Verified 07/22/19 16:48 Cramps sulfamethoxazole AdvReac Severe Nausea and Verified 07/22/19 16:48 [From Bactrim] vomiting trimethoprim [From Bactrim] AdvReac Severe Nausea and Verified 07/22/19 16:48 vomiting vancomycin AdvReac Severe diarrhea, Verified 07/22/19 16:48 redness Cephalosporins AdvReac Intermediate Diarrhea Verified 07/22/19 16:48 codeine phosphate AdvReac Intermediate Vomiting Verified 07/22/19 16:48 [From Tylenol-Codeine #3] ketorolac AdvReac Intermediate Cramping/vo Verified 07/22/19 16:48 mitting oxycodone AdvReac Intermediate Nausea/vomi Verified 07/22/19 16:48 tting tramadol AdvReac Intermediate Diarrhea Verified 07/22/19 16:48 General Stated Complaint: Urinary HALINA: 3 Review of Systems Constitutional Constitutional: Denies fatigue, Denies fever(s) and Denies headache(s) ENT Ears, Nose, Mouth, and Throat: Denies headache(s) and Denies sore throat Cardiovascular Cardiovascular: Denies chest pain and Denies dyspnea Respiratory Respiratory: Denies cough and Denies dyspnea Gastrointestinal Gastrointestinal: Denies abdominal pain, Denies diarrhea, Reports nausea, Denies vomiting and Reports other (Positive for right flank pain) Genitourinary Genitourinary: Denies abnormal vaginal bleeding, Reports hematuria, Denies dysuria and Denies pelvic pain Musculoskeletal Musculoskeletal: Reports back pain and Denies myalgias Integumentary/Breasts Skin/Breast: Denies rash Neurologic Neurologic: Denies headache(s) Endocrine Endocrine: Denies fatigue [facility] Medical History Anemia Anxiety BMI 32.0-32.9,adult Depression 2013 Seen in ED with SI. Referred to counselor. Endometriosis of pelvis (~2009) Stage1. Flank pain (Acute) Have her sign a narcotics contract and explained narcotic she is to her as well as potential for abuse. Her recent use via [place] prescription monitoring system showed no issues. Gave her enough Vicodin for 1 -3 times a day for a month, and asked her to call after her visit on November 27. Hepatic steatosis Hepatomegaly Kidney stones Lymphedema Patellofemoral dysfunction of left knee RLQ abdominal pain (Acute) Vitamin D deficiency Vulvodynia Surgical History Cholecystectomy (12/28/16) Diagnostic Laproscopy (03/03/10) Stage I endometriosis EGD - MAC Extracorporeal shock wave lithotripsy Status post endovenous radiofrequency ablation (RFA) of saphenous vein (Acute) for venous insufficiency 09/06/2018 wisdom teeth extraction Family History Mother Diabetes Heart disease Hyperlipidemia Father Colon cancer Heart disease Hyperlipidemia Sister Hyperlipidemia Grandfather Diabetes Grandfather Diabetes Hyperlipidemia Asthma Grandmother Diabetes Personal history of malignant neoplasm Breast Heart disease Hyperlipidemia Grandmother No problems noted. Social History Smoking/Tobacco Use Status: Current every day Tobacco Type: cigarettes Alcohol Intake: never Drug use: Never Substance use type: does not use Do you feel safe at home: Yes Do you feel safe in your relationship?: Yes Exam Const General: cooperative, healthy appearing, comfortable and no acute distress Orientation: alert, awake and oriented x3 HENMT Head: normal to inspection, normocephalic and atraumatic Mouth: moist mucous membranes Eyes Conjunctivae: conjunctivae normal Neck Neck: normal visual inspection, trachea midline and supple Resp Effort & Inspection: normal respiratory effort and able to speak in complete sentences Auscultation: clear to auscultation bilaterally Cardio Rate: regular rate Rhythm: regular rhythm GI Inspection: normal to inspection Palpation: soft, not firm, no guarding, not rigid and tender (Mild right flank discomfort) with no rebound tenderness Auscultation: normal bowel sounds Back/Spine/Pelvis Back: No no CVA tenderness, No erythema and back tenderness (Diffuse mild right lumbar back discomfort) Skin General skin exam: no rashes or lesions noted Neuro General: patient alert, patient awake, patient oriented x3, moves all extremities and no focal motor deficits Cognition: normal cognition Speech: speech normal Gait: normal gait Motor: muscle tone normal throughout Sensory Exam: no sensory deficits noted Extrem General: full ROM, capillary refill normal, no pedal edema (Left lower extremity, patient reports baseline) and no calf tenderness Psych Appearance: grossly normal Mental Status: mental status grossly normal Course Vital Signs Vital signs: Vital Signs Temperature 37.2 C 07/22/19 16:45 Pulse 80 07/22/19 16:45 Respiratory Rate 14 07/22/19 16:45 Blood Pressure 131/82 07/22/19 16:45 Pulse Oximetry 97 07/22/19 16:45 Temperature 37.2 C 07/22/19 16:45 Temperature Source Skin 07/22/19 16:45 Pulse 80 07/22/19 16:45 Respiratory Rate 14 07/22/19 16:45 Respiratory Effort Non-Labored 07/22/19 16:49 Blood Pressure 131/82 07/22/19 16:45 Blood Pressure Position Sitting 07/22/19 16:45 Pulse Oximetry 97 07/22/19 16:45 Oxygen Delivery Method Room Air 07/22/19 16:45 Oxygen Flow Rate 0 07/22/19 16:45 Pain Level 10 07/22/19 16:45 Lab/Test Results Lab/Test Results: 07/22/19 16:56 Urine - Reflex from Ua Urine Culture - Pending Laboratory Tests Range/Units 07/22/19 16:56 Urine Color (Yellow) Red Urine Clarity (Clear) Sl cloudy Urine pH (5-8) 6.0 Ur Specific [place] (1.005-1.025) >= 1.030 H Urine Protein (Negative) mg/dL Negative Urine Ketones (Negative) mg/dL Negative Urine Blood (Negative) Large H Urine Nitrite (Negative) Negative Urine Bilirubin (Negative) Negative Urine Urobilinogen (Up TO 0.2) EU/dL 0.2 Ur Leukocyte Esterase (Negative) Negative Urine RBC (0-2) HPF >50 H Urine WBC (0-5) HPF Ur Epithelial Cells (Negative) HPF Few Urine Crystals (Negative) HPF Negative Urine Bacteria (Negative) HPF Many Urine Casts (Negative) LPF Negative Urine Mucus (Negative) Moderate Ur Culture Indicated? Yes Urine Glucose (Negative) mg/dL Negative
== END 2019-07-22 18:09 | disposition left against medical advice (07) ==
PROVIDERS: Emergency Provider Physician Assistant; PCP Nurse Practitioner
DX: M54.5 Low back pain (principal); G89.29 Other chronic pain; R31.9 Hematuria, unspecified; Z53.29 Procedure and treatment not carried out because of patient's decision for other reasons
CPT/HCPCS: 80048; 81025; 99284; 74176; 81003; 81015; 85025; 87086; 99285

== ENCOUNTER 2019-08-04 17:18 | Emergency (ER) | payer MEDICAID, SELFPAY ==
[2019-08-04 17:23] VITALS: BP 138/84; PULSE 94; RESP 18; TEMP 36.8; O2SAT 97
[2019-08-04 17:38] LABS: Bilirubin Negative (Negative); Blood Large (Negative); Clarity Cloudy (Clear); Glucose Negative (Negative); Ketones Negative (Negative); Leukocyte Esterase Negative (Negative); Nitrite Negative (Negative); Specific Gravity 1.025 (1.005-1.025); Urobilinogen 0.2 EU/dL (Up TO 0.2)
[2019-08-04 17:45] LABS: Bacteria Negative HPF (Negative); C & S Indicated? No; Crystals Negative HPF (Negative); Epithelial Cells Few HPF (Negative); Mucus Negative (Negative); RBC >50 HPF (0-2); WBC Negative HPF (0-5)
--- NOTE | 2019-08-04 17:50 | ED.GENADUL_ITS ---
Discharge Plan Disposition Patient Disposition: HOME Condition: Stable Discharge Details Chief Complaint: FlankPain Clinical Impression: Chronic flank pain, Hematuria Primary Care Provider: Kathryn Nichole ED Provider: Amy Osborn Home Meds and New Rx's Prescriptions: Continued acetaminophen [Tylenol] 325 mg Capsule 325 mg PO PRN PRNRF: 0 trazodone 100 mg tablet 100 mg PO HS RF: 0 sertraline 50 mg tablet 50 mg PO HS RF: 0 Discharge Instructions Instructions: Chronic Pain (ED), Hematuria (ED) Additional Instructions: Drink plenty of fluids and get plenty of rest. Alternate tylenol and motrin as needed and directed for pain. Follow-up with your scheduled appointment with pain management this month. Follow-up with your planned kidney biopsy as scheduled. Return to the emergency department if you develop any worsening or concerning symptoms such as fevers, persistent vomiting or worsening pain. Discharge Data Discharge Date/Time-TO BE ENTERED AT DEPARTURE: 08/04/19 17:55 Discharge Physician: Amy Osborn Medical Decision Making 33-year-old female with a history of chronic bilateral flank pain and hematuria for approximately 9 years managed with narcotics requiring use of narcotic pain contract and multiple ED visits for same presents for bilateral flank pain and hematuria. She has had multiple CAT scans and lab work-ups. Last CAT scan 2 weeks ago negative for any acute findings. Urinalysis notes blood and appears consistent with usual sample but no evidence of infection. Vitals within normal limits. She appears nontoxic. Abdomen soft and nontender. No CVA tenderness. Back normal to inspection. No focal deficits. Neurovascular intact. Discussed with patient that as she has had multiple imaging studies, including a negative CT 2 weeks ago, do not see an indication for repeat CAT scan as her symptoms are consistent with her usual pain and she is agreeable. Discussed that as she appears nontoxic and her symptoms are consistent with her chronic pain, do not see indication for narcotic pain medication. She was offered lab work but declines. After we discussed that I would not be giving narcotic pain medication, she is requesting her discharge p aperwork to leave. She has an appointment with pain management later this month. She has a pending appointment with nephrology for kidney biopsy for a tentative diagnosis of chronic groin pain/hematuria syndrome. Usual and customary return precautions given prior to discharge. HPI General Mode of arrival: ambulatory . Date/Time Provider Initiated Documentation: 08/04/19 17:19 . Limitations to Documentation: no limitations . Information obtained by: patient . HPI Narrative: Pt is a 33yo F w/ a h/o multiple ED visits for chronic flank pain and hematuria with history of chronic narcotic use requiring development of a narcotic contract and referral to pain management later this month presents for her usual bilateral flank pain and hematuria. Patient states she has had this ongoing hematuria and bilateral flank pain for 9 years. She states she has been followed by nephrology at [facility] who are planning on doing a kidney biopsy which has been postponed due to the coronavirus. She states she had been taking narcotics until he recently ran out. She has been alternating Tylenol and Motrin without relief. She denies any fever, vomiting, abdominal pain, dysuria, urinary frequency or urgency. She denies any new injuries. She denies any recent travel or antibiotics. Related Data Home Medications Medication Instructions Recorded Confirmed acetaminophen [Tylenol] 325 mg PO PRN PRN 03/20/19 08/04/19 sertraline 50 mg PO HS 04/09/19 08/04/19 trazodone 100 mg PO HS 04/09/19 08/04/19 Allergies Allergy/AdvReac Type Severity Reaction Status Date / Time cephalexin [Cephalexin] AdvReac Severe Abdominal Verified 08/04/19 17:27 Cramps sulfamethoxazole AdvReac Severe Nausea and Verified 08/04/19 17:27 [From Bactrim] vomiting trimethoprim [From Bactrim] AdvReac Severe Nausea and Verified 08/04/19 17:27 vomiting vancomycin AdvReac Severe diarrhea, Verified 08/04/19 17:27 redness Cephalosporins AdvReac Intermediate Diarrhea Verified 08/04/19 17:27 codeine phosphate AdvReac Intermediate Vomiting Verified 08/04/19 17:27 [From Tylenol-Codeine #3] ketorolac AdvReac Intermediate Cramping/vo Verified 08/04/19 17:27 mitting oxycodone AdvReac Intermediate Nausea/vomi Verified 08/04/19 17:27 tting tramadol AdvReac Intermediate Diarrhea Verified 08/04/19 17:27 General Stated Complaint: FlankPain HALINA: 3 Review of Systems All systems reviewed & are unremarkable except as noted in HPI and below Constitutional Constitutional: Reports as per HPI, Denies chills and Denies fever(s) Eyes Eyes: Denies blurry vision ENT Ears, Nose, Mouth, and Throat: Denies dizziness, Denies sore throat and Denies throat swelling Cardiovascular Cardiovascular: Denies chest pain and Denies dyspnea Respiratory Respiratory: Denies cough and Denies dyspnea Gastrointestinal Gastrointestinal: Denies abdominal pain, Denies diarrhea and Denies vomiting Genitourinary Genitourinary: Reports hematuria, Denies dysuria and Reports other (flank pain) Musculoskeletal Musculoskeletal: Denies back pain and Denies numbness Integumentary/Breasts Skin/Breast: Denies lesions and Denies rash Neurologic Neurologic: Denies dizziness, Denies localized weakness and Denies numbness Allergic/Immunologic Allergic/Immunologic: Denies throat swelling [facility] Medical History Anemia Anxiety BMI 32.0-32.9,adult Depression 2013 Seen in ED with SI. Referred to counselor. Endometriosis of pelvis (~2009) Stage1. Hepatic steatosis Hepatomegaly History of renal calculi (Inactive) Kidney stones Lymphedema Patellofemoral dysfunction of left knee Right upper quadrant abdominal pain (Inactive 12/15/16) RLQ abdominal pain (Acute) Vitamin D deficiency Vulvodynia Surgical History Cholecystectomy (12/28/16) Diagnostic Laproscopy (03/03/10) Stage I endometriosis EGD - MAC Extracorporeal shock wave lithotripsy Status post endovenous radiofrequency ablation (RFA) of saphenous vein (Acute) for venous insufficiency 09/06/2018 wisdom teeth extraction Social History Smoking/Tobacco Use Status: Current every day Tobacco Type: cigarettes Alcohol Intake: never Drug use: Never Substance use type: does not use Do you feel safe at home: Yes Do you feel safe in your relationship?: Yes Exam Const General: cooperative, healthy appearing and no acute distress HENMT Head: normal to inspection Face and sinus: normal facial exam Eyes General: appearance normal, both eyes and all related structures EOM: EOM intact bilaterally Neck Neck: normal visual inspection and No submandibular swelling Lymphatic: no lymphadenopathy noted Chest Chest: normal inspection of the chest and no tenderness Resp Effort & Inspection: normal respiratory effort and able to speak in complete sentences Auscultation: clear to auscultation bilaterally Cardio Rate: regular rate Rhythm: regular rhythm GI Inspection: normal to inspection Palpation: soft, not firm, not rigid and nontender Auscultation: normal bowel sounds Back/Spine/Pelvis Back: no CVA tenderness Thoracic/Lumbar Spine: thoracic and lumbar spine normal to inspection Pelvis: no pain with anterior-posterior compression Skin General skin exam: no rashes or lesions noted Neuro General: patient alert, patient awake and patient oriented x3 Cognition: normal cognition Speech: speech normal Motor: muscle tone normal throughout Sensory Exam: no sensory deficits noted Extrem General: normal to inspection, full ROM, capillary refill normal, no calf tenderness bilaterally and no edema Psych Appearance: grossly normal Mental Status: mental status grossly normal Speech and Movement: speech and movement normal Affect: normal affect Course Vital Signs Vital signs: Vital Signs Temperature 98.2 F 08/04/19 17:23 Pulse 94 H 08/04/19 17:23 Respiratory Rate 18 08/04/19 17:23 Blood Pressure 138/84 08/04/19 17:23 Pulse Oximetry 97 08/04/19 17:23 Temperature 98.2 F 08/04/19 17:23 Temperature Source Temporal Artery Scan 08/04/19 17:23 Pulse 94 H 08/04/19 17:23 Respiratory Rate 18 08/04/19 17:23 Respiratory Effort 08/04/19 17:28 Blood Pressure 138/84 08/04/19 17:23 Blood Pressure Position Sitting 08/04/19 17:23 Pulse Oximetry 97 08/04/19 17:23 Pain Level 10 08/04/19 17:23 Lab/Test Results Lab/Test Results: Laboratory Tests Range/Units 08/04/19 17:30 Urine Color (Yellow) [place] Urine Clarity (Clear) Cloudy Urine pH (5-8) 6.0 Ur Specific [place] (1.005-1.025) 1.025 Urine Protein (Negative) mg/dL Negative Urine Ketones (Negative) mg/dL Negative Urine Blood (Negative) Large H Urine Nitrite (Negative) Negative Urine Bilirubin (Negative) Negative Urine Urobilinogen (Up TO 0.2) EU/dL 0.2 Ur Leukocyte Esterase (Negative) Negative Urine RBC (0-2) HPF >50 H Urine WBC (0-5) HPF Negative Ur Epithelial Cells (Negative) HPF Few Urine Crystals (Negative) HPF Negative Urine Bacteria (Negative) HPF Negative Urine Mucus (Negative) Negative Ur Culture Indicated? No Urine Glucose (Negative) mg/dL Negative POC- Test(urine) Negative
== END 2019-08-04 17:55 | disposition home or self-care (01) ==
PROVIDERS: Emergency Provider Physician Assistant; PCP Nurse Practitioner
DX: M54.5 Low back pain (principal); G89.29 Other chronic pain; R31.9 Hematuria, unspecified; Z87.442 Personal history of urinary calculi
CPT/HCPCS: 81025; 99282; 81003; 81015; 99283

== ENCOUNTER 2019-10-14 15:51 | Emergency (ER) | payer MEDICAID, SELFPAY ==
[2019-10-14 15:54] VITALS: BP 134/77; PULSE 90; RESP 20; TEMP 36.1; O2SAT 96
--- NOTE | 2019-10-14 16:00 | DI.US_ITS ---
EXAM: US RENAL CLINICAL HISTORY: L flank pain, hs hematuria. TECHNIQUE: Paez scale, color and spectral Doppler were used. COMPARISON: CT CT RENAL COLIC WO from 07/22/2019 FINDINGS: Renal size in cm: Right: 11.2 left: 11.0 Echogenicity: Normal Hydronephrosis: No Cyst or mass: No Nephrolithiasis: No Other findings: None Bladder:Nearly empty and not well evaluated. Prevoid vol: 13 cc Postvoid vol: Not obtained IMPRESSION: No evidence of hydronephrosis. No visible renal calculi. DATA REPOSITORY:
[2019-10-14 16:03] LABS: Bilirubin Negative (Negative); Blood Large (Negative); Clarity Sl Cloudy (Clear); Glucose Negative (Negative); Ketones Negative (Negative); Leukocyte Esterase Negative (Negative); Nitrite Negative (Negative); Urobilinogen 0.2 EU/dL (Up TO 0.2)
--- NOTE | 2019-10-14 16:11 | W.ED.GENAD ---
Discharge Plan Disposition Patient Disposition: HOME Condition: Stable Discharge Details Chief Complaint: FlankPain Clinical Impression: Loin pain hematuria syndrome Primary Care Provider: Kathryn Nichole ED Provider: Magno Leon Home Meds and New Rx's Prescriptions: Continued acetaminophen [Tylenol] 325 mg Capsule 650 mg PO PRN PRNRF: 0 trazodone 100 mg tablet 100 mg PO HS RF: 0 sertraline 50 mg tablet 50 mg PO HS RF: 0 Discharge Instructions Instructions: Hematuria (ED) Additional Instructions: Please follow-up with urology at [facility]. Take Tylenol as needed for pain. Return develop a fever, worsening discomfort, or any other acute concerns. May use Pyridium as provided. Medical Decision Making 34-year-old female with a history of hematuria loin pain syndrome that she states is primarily on the right. She has been followed by urology at [facility] and now at [facility]. She describes to me 3 days of the abrupt onset of left-sided flank pain with associated urgency to urinate. Is not had a fever or vomiting. She arrives well-appearing and in no significant distress. Exam reveals left flank tenderness to percussion, no abdominal discomfort. Urinalysis shows microscopic hematuria but no evidence of infection. Patient underwent ultrasound which did not reveal obstruction or stone. Screening laboratories revealed a normal CBC, unremarkable comprehensive panel. Discussed with patient that she may have some benefit from ongoing use of Tylenol as well as Pyridium. Patient is stable and appropriate for discharge to home. HPI General Mode of arrival: ambulatory. Date/Time Provider Initiated Documentation: 10/14/19 15:51. Limitations to Documentation: no limitations. Information obtained by: patient. History of Present Illness 34 year old F presents to the emergency department with the chief complaint of Left flank pain, described as moderate, Quality is described as dull, and is localized to the left. Patient reports radiation to back. Patient started experiencing this day(s) and it has been constant. No relieving factors improve symptom(s), No exacerbating factors reported . Patient notes other (Urge to urinate); denies fever/chills. Patient did receive the following treatments prior to arrival, none Related Data Home Medications Medication Instructions Recorded Confirmed acetaminophen [Tylenol] 650 mg PO PRN PRN 03/20/19 10/14/19 sertraline 50 mg PO HS 04/09/19 10/14/19 trazodone 100 mg PO HS 04/09/19 10/14/19 Allergies Allergy/AdvReac Type Severity Reaction Status Date / Time cephalexin [Cephalexin] AdvReac Severe Abdominal Verified 10/14/19 16:11 Cramps sulfamethoxazole AdvReac Severe Nausea and Verified 10/14/19 16:11 [From Bactrim] vomiting trimethoprim [From Bactrim] AdvReac Severe Nausea and Verified 10/14/19 16:11 vomiting vancomycin AdvReac Severe diarrhea, Verified 10/14/19 16:11 redness acetaminophen AdvReac Intermediate Other (See Unverified 10/14/19 16:13 Comment) Cephalosporins AdvReac Intermediate Diarrhea Verified 10/14/19 16:11 codeine phosphate AdvReac Intermediate Vomiting Verified 10/14/19 16:11 [From Tylenol-Codeine #3] ketorolac AdvReac Intermediate Cramping/vo Verified 10/14/19 16:11 mitting oxycodone AdvReac Intermediate Nausea/vomi Verified 10/14/19 16:11 tting tramadol AdvReac Intermediate Diarrhea Verified 10/14/19 16:11 General Stated Complaint: FlankPain HALINA: 3 Review of Systems Narrative: No vaginal bleeding or discharge. No fever or vomiting. Minimal improvement with Tylenol at home. 6 systems reviewed and otherwise negative [facility], [facility] Surgical History Cholecystectomy (12/28/16) Diagnostic Laproscopy (03/03/10) Stage I endometriosis EGD - MAC Extracorporeal shock wave lithotripsy Status post endovenous radiofrequency ablation (RFA) of saphenous vein (Acute) for venous insufficiency 09/06/2018 wisdom teeth extraction Social History Smoking/Tobacco Use Status: Current every day Tobacco Type: cigarettes Alcohol Intake: never Drug use: Rarely Substance use type: marijuana Details: An edible like once a year Do you feel safe at home: Yes Do you feel safe in your relationship?: Yes Exam Narrative Exam Narrative: GEN: awake, alert, oriented 3. Pleasant, well groomed, interactive. HEAD: Normocephalic, atraumatic ENT: External ear exam unremarkable EYES: PERRL, EOMI NECK: Full ROM, no NENA, no menigismus CHEST/RESP: Nontender, clear to auscultation bilateral, no wheeze/rhonchi/rales CARDIOVASCULAR: RRR, no murmur, rub lynnette. 2+ Rad pulse bilateral ABDOMEN: Soft, nontender, no mass. +Bowel sounds. Left flank tender to percussion. EXT: Full ROM, no edema, no rash Neuro: Grossly normal neurologic exam, conversant, interactive. Psych: Speech fluent, thoughts congruent, affect normal Course Vital Signs Vital signs: Vital Signs Temperature 36.1 C L 10/14/19 15:54 Pulse 90 10/14/19 15:54 Respiratory Rate 20 10/14/19 15:54 Blood Pressure 134/77 10/14/19 15:54 Pulse Oximetry 96 10/14/19 15:54 Temperature 36.1 C L 10/14/19 15:54 Temperature Source Skin 10/14/19 15:54 Pulse 90 10/14/19 15:54 Respiratory Rate 20 10/14/19 15:54 Respiratory Effort Non-Labored 10/14/19 16:02 Blood Pressure 134/77 10/14/19 15:54 Blood Pressure Position Sitting 10/14/19 15:54 Pulse Oximetry 96 10/14/19 15:54 Oxygen Delivery Method Room Air 10/14/19 15:54 Oxygen Flow Rate 0 10/14/19 15:54 Pain Level 9 10/14/19 15:54
[2019-10-14 16:14] LABS: Bacteria Negative HPF (Negative); C & S Indicated? No; Casts Negative LPF (Negative); Crystals Negative HPF (Negative); Epithelial Cells Few HPF (Negative); Mucus Negative (Negative); RBC >50 HPF (0-2)
[2019-10-14 16:47] LABS: Abs Immature Grans 0.01 k/cumm (0.0-0.09); Absolute Basophil Count 0.02 k/cumm (0.0-0.2); Absolute Eosinophil Count 0.13 k/cumm (0.0-0.7); Absolute Lymphocyte Count 2.02 k/cumm (1.2-3.4); Absolute Monocyte Count 0.54 k/cumm (0.11-0.7); Absolute Neutrophil Count 5.16 k/cumm (1.2-6.7); Basophils % 0.3; Eosinophils % 1.6; HCT 42.2 % (36.0-46.0); HGB 14.6 g/dL (12.0-15.5); Immature Grans % 0.1 %; Lymphocytes % 25.6; Mean Corp. HGB Concentration 34.6 g/dL (32.0-36.0); Mean Corpuscular Hemoglobin 32.6 pg (27.0-33.0); Mean Corpuscular Volume 94.2 fL (80-95); Mean Platelet Volume 10.2 fL (8.0-11.0); Monocytes % 6.9; Neutrophils % 65.5; Platelet Count 206 x1000/uL (130-400); RBC 4.48 m/cumm (4.00-5.20); White Blood Cell Count 7.88 k/cumm (4.4-10.8)
--- NOTE | 2019-10-14 16:59 | DI.VRAD_ITS ---
PROCEDURE INFORMATION: Exam: US Retroperitoneal; Complete; Kidneys and Bladder Exam date and time: 10/14/2019 4:11 PM Age: 34 years old Clinical indication: Other: Left flank pain TECHNIQUE: Imaging protocol: Real-time ultrasound of the retroperitoneum with image documentation. Complete exam focused on the kidneys and bladder. COMPARISON: SD US RENAL 07/16/2019 1:20 PM FINDINGS: Right kidney: Normal. No stones. No hydronephrosis. Left kidney: Normal. No stones. No hydronephrosis. Bladder: Unremarkable. IMPRESSION: Unremarkable kidneys and bladder. Dictated and Authenticated by: Gerard Lara MD. Ordering:HAWK Kiran MD
[2019-10-14 17:07] LABS: ALT 29 U/L (14-59); AST 13 U/L (15-37); Albumin 3.6 g/dL (3.4-5.0); Alkaline Phosphatase 81 U/L (46-116); Anion Gap 7.3 mmol/L (3-11); BUN 12 mg/dL (7-18); Bilirubin, Total 0.2 mg/dL (0.2-1.0); CO2 27.7 mmol/L (21.0-32.0); CREATININE 0.77 mg/dL (0.55-1.02); Calcium 8.7 mg/dL (8.5-10.1); Chloride 105 mmol/L (98-107); Glucose 122 mg/dL (74-106); Potassium 3.8 mmol/L (3.5-5.1); Sodium 140 mmol/L (136-145)
== END 2019-10-14 17:23 | disposition home or self-care (01) ==
PROVIDERS: Emergency Provider Emergency Medicine; PCP Nurse Practitioner
DX: N39.8 Other specified disorders of urinary system (principal); Z87.442 Personal history of urinary calculi
CPT/HCPCS: 36415; 76770; 80053; 81025; 99284; 81003; 81015; 85025

== ENCOUNTER 2019-10-27 17:29 | Emergency (ER) | payer MEDICAID, SELFPAY ==
[2019-10-27 17:34] VITALS: BP 138/93; PULSE 84; RESP 16; TEMP 36.6; O2SAT 98
--- NOTE | 2019-10-27 17:45 | W.ED.GENAD ---
Discharge Plan Disposition Patient Disposition: HOME Condition: Stable Discharge Details Chief Complaint: Cellulitis Clinical Impression: Cellulitis of left lower leg Primary Care Provider: Kathryn Nichole ED Provider: Marina Moe Home Meds and New Rx's Prescriptions: New clindamycin HCl 300 mg capsule 300 mg PO BID 10 Days Qty: 20 RF: 0 hydrocodone-acetaminophen 5-325 mg tablet 1 tab PO BID PRN (Reason: pain) Qty: 4 RF: 0 No Action acetaminophen [Tylenol] 325 mg Capsule 650 mg PO PRN PRNRF: 0 trazodone 100 mg tablet 100 mg PO HS RF: 0 sertraline 50 mg tablet 50 mg PO HS RF: 0 Discharge Instructions Instructions: Cellulitis (ED) Additional Instructions: Take prescriptions as prescribed. Return or be seen sooner if worsening redness over the next 2 to 3 days or any concerns. Please return for any fever or worsening pain. Follow up with primary care provider in 3-5 days. Return to ED sooner if any worsening or concerns. Increase oral fluids. Referrals: Kathryn Nichole, [employer] [Primary Care Provider] - Medical Decision Making 34-year-old female presents to the ER with left lower extremity cellulitis which she reports began last night. She states that she did sustain a abrasion noted to the dorsal aspect of her left great toe and then began with a small erythemic area to her anterior oquendo. Upon initial exam she does have erythema, and 2-3+ swelling to her foot and ankle. She reports increased tenderness with active flexion of her left knee. Endorses positive chills no objective fever. Denies any other signs or symptoms. She does have a past medical history of endometriosis, lymphedema, depression, endometriosis. Patient states that she had a cellulitis episode 2009 and was given oral vancomycin which made her vomit. She has multiple antibiotic allergies. 1944: Discussed lab results with patient, no leukocytosis white blood cell count is 6.56, sed rate is 31, sodium potassium within normal limits, C-reactive protein is high at 8.60, lactate 0.8. Verbalized understanding. Shared decision making discussed with patient and discussed my concern for worsening cellulitis involving her foot ankle and lower extremity possibility for admission. At this time she desires to be discharged home discussed outpatient care versus admission. She did receive 600 mg clindamycin IV piggyback while in department. Will continue the clindamycin 300 mg twice a day. Gave strict return instructions. Erythema measured and marked. Differential diagnosis includes but not limited to cellulitis, DVT, HPI General Mode of arrival: ambulatory. Date/Time Provider Initiated Documentation: 10/27/19 17:36. Limitations to Documentation: no limitations. Information obtained by: patient. HPI Narrative: 34-year-old female presents to the ER with left lower extremity cellulitis which she reports began last night. She states that she did sustain a abrasion noted to the dorsal aspect of her left great toe and then began with a small erythemic area to her anterior oquendo. Upon initial exam she does have erythema, and 2-3+ swelling to her foot and ankle. She reports increased tenderness with active flexion of her left knee. Endorses positive chills no objective fever. Denies any other signs or symptoms. She does have a past medical history of endometriosis, lymphedema, depression, endometriosis. Patient states that she had a cellulitis episode 2009 and was given oral vancomycin which made her vomit. She has multiple antibiotic allergies. Related Data Home Medications Medication Instructions Recorded Confirmed acetaminophen [Tylenol] 650 mg PO PRN PRN 03/20/19 10/27/19 sertraline 50 mg PO HS 04/09/19 10/27/19 trazodone 100 mg PO HS 04/09/19 10/27/19 clindamycin HCl 300 mg PO BID 10 Days #20 cap 10/27/19 hydrocodone-acetaminophen 1 tab PO BID PRN #4 tab 10/27/19 Previous Rx's Medication Instructions Recorded clindamycin HCl 300 mg PO BID 10 Days #20 cap 10/27/19 hydrocodone-acetaminophen 1 tab PO BID PRN #4 tab 10/27/19 Allergies Allergy/AdvReac Type Severity Reaction Status Date / Time cephalexin [Cephalexin] AdvReac Severe Abdominal Verified 10/27/19 17:39 Cramps sulfamethoxazole AdvReac Severe Nausea and Verified 10/27/19 17:39 [From Bactrim] vomiting trimethoprim [From Bactrim] AdvReac Severe Nausea and Verified 10/27/19 17:39 vomiting vancomycin AdvReac Severe diarrhea, Verified 10/27/19 17:39 redness acetaminophen AdvReac Intermediate Other (See Unverified 10/27/19 17:39 Comment) Cephalosporins AdvReac Intermediate Diarrhea Verified 10/27/19 17:39 codeine phosphate AdvReac Intermediate Vomiting Verified 10/27/19 17:39 [From Tylenol-Codeine #3] ketorolac AdvReac Intermediate Cramping/vo Verified 10/27/19 17:39 mitting oxycodone AdvReac Intermediate Nausea/vomi Verified 10/27/19 17:39 tting tramadol AdvReac Intermediate Diarrhea Verified 10/27/19 17:39 General Stated Complaint: Cellulitis HALINA: 3 Review of Systems Narrative: Constitutional: Negative for weight loss, alert and oriented, well groomed, normal body habitus, appears comfortable. HEENT: Denies trauma, headaches, blurry vision, nasal discharge, sore throat, trouble swallowing. Chest: Denies chest pain, palpitations, irregular rhythm, hypertension. Respiratory: Denies Shortness of breath, cough, hemoptysis. GI: Denies abdominal pain, nausea, vomiting, diarrhea, constipation. : Denies dysuria, hematuria, flank pain, rectal bleeding. Neuro: Denies dizziness, blurry vision, weakness, syncope, headache or facial numbness. Hematologic: Denies easy bruising, intolerance to heat or cold, hair loss. [facility] Medical History Anemia Anxiety BMI 32.0-32.9,adult Depression 2012 Seen in ED with SI. Referred to counselor. Endometriosis of pelvis (~2009) Stage1. Hepatic steatosis Hepatomegaly History of renal calculi (Inactive) Kidney stones Lymphedema Patellofemoral dysfunction of left knee Right upper quadrant abdominal pain (Inactive 12/15/16) RLQ abdominal pain (Acute) Vitamin D deficiency Vulvodynia Surgical History Cholecystectomy (12/28/16) Diagnostic Laproscopy (03/03/10) Stage I endometriosis EGD - MAC Extracorporeal shock wave lithotripsy Status post endovenous radiofrequency ablation (RFA) of saphenous vein (Acute) for venous insufficiency 09/06/2018 wisdom teeth extraction Family History Mother Diabetes Heart disease Hyperlipidemia Father Colon cancer Heart disease Hyperlipidemia Sister Hyperlipidemia Grandfather Diabetes Grandfather Diabetes Hyperlipidemia Asthma Grandmother Diabetes Personal history of malignant neoplasm Breast Heart disease Hyperlipidemia Grandmother No problems noted. Social History Smoking/Tobacco Use Status: Current every day Tobacco Type: cigarettes Alcohol Intake: never Drug use: Rarely Substance use type: marijuana Details: An edible like once a year Do you feel safe at home: Yes Do you feel safe in your relationship?: Yes Exam Narrative Exam Narrative: Constitutional: Alert and oriented x3. Appears stated age. Normal body habitus. Head: Normocephalic, no trauma. Eyes: Pupils PERRLA, Red reflex noted, EOM's intact. Eyelids symmetrical without lesions, discharge, or swelling. ENT: Bilateral TM's WNL, External ear normal to inspection, no mastoid TTP, swelling, or erythema, Nasal turbinates WNL, no nasal discharge. Normal dentition, Posterior pharynx WNL, no exudate. Chest: RRR, Normal S1, S2, distal pulses intact. Resp: Lungs clear to auscultation bilaterally, no wheezes, rales, or rhonchi. Musculoskeletal: Normal gait, 3+ edema noted to her left foot ankle and left lower leg with surrounding induration and erythema positive warmth tenderness. Consistent with cellulitis. Skin: 2 abrasions noted to the dorsal aspect of her left great toe, Neurologic: Cranial nerves II-XII intact. Alert and oriented x 3. DTR's intact. Hematologic/Lymphatic: No ecchymosis, no lymphadenopathy. Course Vital Signs Vital signs: Vital Signs Temperature 36.6 C 10/27/19 17:34 Pulse 84 10/27/19 17:34 Respiratory Rate 16 10/27/19 17:34 Blood Pressure 138/93 H 10/27/19 17:34 Pulse Oximetry 98 10/27/19 17:34 Temperature 36.6 C 10/27/19 17:34 Temperature Source Skin 10/27/19 17:34 Pulse 84 10/27/19 17:34 Respiratory Rate 16 10/27/19 17:34 Respiratory Effort Non-Labored 10/27/19 17:34 Blood Pressure 138/93 H 10/27/19 17:34 Blood Pressure Position Sitting 10/27/19 17:34 Pulse Oximetry 98 10/27/19 17:34 Oxygen Delivery Method Room Air 10/27/19 17:34 Oxygen Flow Rate 0 10/27/19 17:34 Pain Level 9 10/27/19 17:34
[2019-10-27 18:12] LABS: Lactate 0.8 mmol/L (0.6-1.4)
[2019-10-27 18:16] LABS: Abs Immature Grans 0.03 10^3/uL (0.0-0.06); Absolute Basophil Count 0.05 10^3/uL (0.0-0.2); Absolute Eosinophil Count 0.13 10^3/uL (0.0-0.7); Absolute Lymphocyte Count 1.53 10^3/uL (1.2-3.4); Absolute Monocyte Count 0.65 10^3/uL (0.1-0.8); Absolute Neutrophil Count 4.17 10^3/uL (1.2-6.7); Basophils % 0.8; HCT 41.4 % (36.0-46.0); HGB 14.6 g/dL (11.2-15.7); Immature Grans % 0.5; Lymphocytes % 23.3; MCH 32.8 pg (27.0-33.0); MCHC 35.3 % (32.0-36.0); MPV 10.3 fL (8.0-11.0); Monocytes % 9.9; Neutrophils % 63.5; Nucleated RBC 0 %; Platelet Count 175 10^3/uL (130-400); RBC 4.45 10^6/uL (3.93-5.22); RDW 11.9 % (11.7-14.6); RDW-SD 40.9 fL; WBC 6.56 10^3/uL (4.4-10.8)
[2019-10-27 18:29] LABS: ALT 36 U/L (14-59); AST 22 U/L (15-37); Albumin 3.6 g/dL (3.4-5.0); Alkaline Phosphatase 81 U/L (46-116); Anion Gap 7.8 mmol/L (3-11); BUN 9 mg/dL (7-18); Bilirubin, Total 0.3 mg/dL (0.2-1.0); CO2 26.2 mmol/L (21.0-32.0); CREATININE 0.69 mg/dL (0.55-1.02); Calcium 8.4 mg/dL (8.5-10.1); Chloride 102 mmol/L (98-107); Glucose 98 mg/dL (74-106); Potassium 3.6 mmol/L (3.5-5.1); Sodium 136 mmol/L (136-145); Total Protein 7.2 g/dL (6.4-8.2)
[2019-10-27] MEDS: fentaNYL 100 MCG/2 ML VIAL 25 MCG IVP (18:29)
[2019-10-27 18:30] VITALS: BP 125/76; PULSE 75; O2SAT 97
[2019-10-27] MEDS: Normal Saline Flush 10 ML SYR IVP (18:30)
[2019-10-27] MEDS: CLINDAMYCIN 600 MG/50 ML BAG 100 MG IVPB (18:45)
[2019-10-27 19:42] LABS: ESR 31 mm/hr (0-20)
[2019-10-27 20:13] VITALS: BP 122/87; PULSE 76; RESP 16; TEMP 36.5; O2SAT 97
--- NOTE | 2019-10-27 20:21 | NUR.NOTE ---
left foot wound cleaned, bacitracin, dsd applied. IV removed. discharge instructions reviewed with verbal understanding. ambulated to exit with steady gait.
== END 2019-10-27 20:20 | disposition home or self-care (01) ==
PROVIDERS: Emergency Provider Registered Nurse Emergency; PCP Nurse Practitioner
DX: L03.116 Cellulitis of left lower limb (principal); S90.412A Abrasion, left great toe, initial encounter; W22.8XXA Striking against or struck by other objects, initial encounter
CPT/HCPCS: 36415; 80053; 85652; 87040; 96365; 96375; 99284; 83605; 85025; 86140; J3010

== ENCOUNTER 2019-10-28 18:36 | Emergency (ER) | payer MEDICAID, SELFPAY ==
[2019-10-28 18:42] VITALS: BP 142/85; PULSE 90; TEMP 36.7; O2SAT 97
--- NOTE | 2019-10-28 18:51 | ED.GENADUL_ITS ---
Discharge Plan Disposition Patient Disposition: HOME Condition: Fair Discharge Details Chief Complaint: Cellulitis Clinical Impression: Cellulitis of left lower leg, Leg swelling Primary Care Provider: Kathryn Nichole ED Provider: Cindi Brothers Home Meds and New Rx's Prescriptions: Continued acetaminophen [Tylenol] 325 mg Capsule 650 mg PO PRN PRNRF: 0 trazodone 100 mg tablet 100 mg PO HS RF: 0 sertraline 50 mg tablet 50 mg PO HS RF: 0 No Action dicloxacillin 500 mg capsule 500 mg PO Q6H Qty: 52 RF: 0 Discharge Instructions Instructions: Promethazine (Rectal), Cellulitis (ED) Additional Instructions: I am concerned that your cellulitis is worsening. Alternative diagnosis does include a DVT as discussed. You have been given a dose of Lovenox here. You are declining admission but I would like for you to return immediately with any new or worsening symptoms. You were given your dosing of antibiotics tonight, your next dose will be tomorrow. You are being discharged with rectal Phenergan to help with any recurrence of y our nausea and vomiting. You may use this every 4-6 hours as needed. Please return to emergency department for reevaluation after ultrasound tomorrow. Referrals: Kathryn Nichole, INVENTORY CHECKER [Primary Care Provider] - Discharge Data Discharge Date/Time-TO BE ENTERED AT DEPARTURE: 10/28/19 22:30 Medical Decision Making <REESE Ovalles - Last Filed: 10/30/19 12:22> Kayla is a 34 year old female, well known to myself and department, who presents for reevaluation of cellulitis of the LLE. She was seen yesterday and diagnosed with cellulitis. She was started on abx, labs were obtained and pain was managed. Patient was offered inpatient admission which she declined. Was discharged home on oral Clindamycin. Since that time, she states that she took her morning dose of Clindamycin. States that later in the day she did vomit but states that it was well after the dosing and she felt that the medication did not come up. Patient does have chornic abdominal issues and does have vomiting frequently. Has used ODT zofran but states she wont use this becuase of the taste any longer. She has noted the area of erythema of the LLE to extend beyond the demarkated areas. She states that she has had subjective fevers. Has not used anything at home for her pain. On exam, patient appears nontoxic. she is afebrile here. She has a faint area of erythema that does extend one inch beyond the marked area posteriorly. She has nonpitting lower extremity edema. Patient reports that this is chronic and u nchanged from her baseline. She shows me a photo of her cellulitis yesterday, she had much darker erythema at that time. I do not appreciate warmth. She has posterior calf pain, no palpable cord. Good distal pulses and capillary refill. As the patient feels that this is worse than yesterday, will repeat labs. She has not been able to drink much today secondary to GI upset, will hydrate the patient. Labs reviewed. No leukocytosis. She has downtrending CRP from 8.6 to 2.5. Her lactate was minimally elevated at 1.5, this is likely associated with her diminished fluid intake. Her HR has come down from 90 to 57. I am concerned for potential DVT. She is not on hormone therapy, she is a smoker, no PMH or FMH of clot. Unable to obtain US tonight. I am concerned that d-dimer would be unhelpful as the patient has a process going on that may falsely elevate it. Will discuss anticoagulation with kayla. Patient was evaluated by Dr. Leon as well. He and I discussed inpatient admission with the patient as she has been failing outpatient management with spreading, increased discomfrot and GI upset. Patient does not want admission. She feels that she can continue to tolerate abx at home. She agrees to SC Lovenox prior to discharge until we are abl eto obtain formal US. She states she has been on this historically when she has been admitted and has tolerated the medication well. We did discuss risks/benefits. 1mg/kg dosing given here. She was given IV dose of her evening abx tonight. We discussed antiemetics. She agrees to rectal phenergan. She was given return precautions and will return with any new/worsening symptoms. I did encourage close f/u with PCP. All of her questions and concerns were addressed. <Magno Leon MD - Last Filed: 10/28/19 21:09> Patient seen, examined [id number], discussed with Ms. Brothers. Agree with offer of admission which patient declined to me and to Ms. Brothers. Agree with ongoing administration of antibiotics, empiric treatment with Lovenox and follow-up ultrasound to rule out DVT. Please see her note regarding details. HPI <REESE Ovlales - Last Filed: 10/30/19 12:22> General Mode of arrival: ambulatory . Date/Time Provider Initiated Documentation: 10/28/19 18:51 . Limitations to Documentation: no limitations . Information obtained by: patient, RN notes reviewed and old records reviewed . History of Present Illness 34 year old F presents to the emergency department with the chief complaint of LLE cellulitis, described as severe and similar to prior episodes (had this several years ago), with intensity rated at 9. Quality is described as aching, and is localized to the left and lower extremity. Patient reports no radiation. Patient started experiencing this day(s) and it has been constant. No relieving factors improve symptom(s), No exacerbating factors reported . Patient notes no other symptoms.. Patient did receive the following treatments prior to arrival, none Related Data Home Medications Medication Instructions Recorded Confirmed acetaminophen [Tylenol] 650 mg PO PRN PRN 03/20/19 10/29/19 sertraline 50 mg PO HS 04/09/19 10/29/19 trazodone 100 mg PO HS 04/09/19 10/29/19 dicloxacillin 500 mg PO Q6H #52 cap 10/30/19 Previous Rx's Medication Instructions Recorded dicloxacillin 500 mg PO Q6H #52 cap 10/30/19 Allergies Allergy/AdvReac Type Severity Reaction Status Date / Time cephalexin [Cephalexin] AdvReac Severe Abdominal Verified 10/29/19 11:24 Cramps sulfamethoxazole AdvReac Severe Nausea and Verified 10/29/19 11:24 [From Bactrim] vomiting trimethoprim [From Bactrim] AdvReac Severe Nausea and Verified 10/29/19 11:24 vomiting vancomycin AdvReac Severe diarrhea, Verified 10/29/19 11:24 redness acetaminophen AdvReac Intermediate Other (See Unverified 10/29/19 11:24 Comment) Cephalosporins AdvReac Intermediate Diarrhea Verified 10/29/19 11:24 codeine phosphate AdvReac Intermediate Vomiting Verified 10/29/19 11:24 [From Tylenol-Codeine #3] ketorolac AdvReac Intermediate Cramping/vo Verified 10/29/19 11:24 mitting oxycodone AdvReac Intermediate Nausea/vomi Verified 10/29/19 11:24 tting tramadol AdvReac Intermediate Diarrhea Verified 10/29/19 11:24 General Stated Complaint: Cellulitis HALINA: 3 Review of Systems <REESE Ovalles - Last Filed: 10/30/19 12:22> Constitutional Constitutional: Reports as per HPI, Reports chills, Reports fever(s), Denies headache(s) and Denies weakness ENT Ears, Nose, Mouth, and Throat: Denies headache(s) Cardiovascular Cardiovascular: Reports as per HPI Respiratory Respiratory: Reports as per HPI and Denies cough Musculoskeletal Musculoskeletal: Reports as per HPI and Denies tingling Integumentary/Breasts Skin/Breast: Reports as per HPI, Reports erythema, Reports rash and Reports skin swelling Neurologic Neurologic: Reports as per HPI, Denies headache(s), Denies tingling, Denies paresthesias and Denies weakness PFSH <REESE Ovalles - Last Filed: 10/30/19 12:22> Medical History Anemia Anxiety BMI 32.0-32.9,adult Depression 2013 Seen in ED with SI. Referred to counselor. Endometriosis of pelvis (~2009) Stage1. Hepatic steatosis Hepatomegaly History of renal calculi (Inactive) Kidney stones Lymphedema Patellofemoral dysfunction of left knee Right upper quadrant abdominal pain (Inactive 12/15/16) RLQ abdominal pain (Acute) Vitamin D deficiency Vulvodynia Surgical History Cholecystectomy (12/28/16) Diagnostic Laproscopy (03/03/10) Stage I endometriosis EGD - MAC Extracorporeal shock wave lithotripsy Status post endovenous radiofrequency ablation (RFA) of saphenous vein (Acute) for venous insufficiency 09/06/2018 wisdom teeth extraction Family History Mother Diabetes Heart disease Hyperlipidemia Father Colon cancer Heart disease Hyperlipidemia Sister Hyperlipidemia Grandfather Diabetes Grandfather Diabetes Hyperlipidemia Asthma Grandmother Diabetes Personal history of malignant neoplasm Breast Heart disease Hyperlipidemia Grandmother No problems noted. Social History Smoking/Tobacco Use Status: Current every day Tobacco Type: cigarettes Alcohol Intake: never Drug use: Rarely Substance use type: marijuana Details: An edible like once a year Do you feel safe at home: Yes Do you feel safe in your relationship?: Yes Exam <REESE Ovalles - Last Filed: 10/30/19 12:22> Const General: cooperative, healthy appearing, comfortable, no acute distress, well developed and well groomed Nutritional Appearance: well nourished and obese Orientation: alert and awake Resp Effort & Inspection: normal respiratory effort, able to speak in complete sentences and no respiratory distress Cardio Rate: regular rate Rhythm: regular rhythm Skin General skin exam: erythema (faint erythematous area circumfrencially around LLE) Trauma: abrasion (healing abrasion to dorsal right great toe) Neuro General: patient alert and patient awake Cognition: normal cognition Speech: speech normal Gait: normal gait Motor: muscle tone normal throughout Sensory Exam: no sensory deficits noted Extrem Ankle/foot/toe images: 1. Area of faint erythema. Extends one inch out of the defined line posteriorly. It is not warm. Patient has non pitting edema that extends into the foot. She reports discomfort with palpation over area of erythema. Brisk ca pillary refill, normal distal pulses. No palpable cord Psych Appearance: grossly normal and well kempt Mental Status: mental status grossly normal Speech and Movement: speech and movement normal Course <REESE Ovalles - Last Filed: 10/30/19 12:22> Vital Signs Vital signs: Vital Signs Temperature 36.7 C 10/28/19 18:42 Pulse 90 10/28/19 18:42 Blood Pressure 142/85 H 10/28/19 18:42 Pulse Oximetry 97 10/28/19 18:42 Temperature 36.7 C 10/28/19 18:42 Temperature Source Temporal Artery Scan 10/28/19 18:42 Pulse 90 10/28/19 18:42 Respiratory Effort Non-Labored 10/28/19 18:45 Blood Pressure 142/85 H 10/28/19 18:42 Blood Pressure Position Sitting 10/28/19 18:42 Pulse Oximetry 97 10/28/19 18:42 Oxygen Delivery Method Room Air 10/28/19 18:42 Oxygen Flow Rate 0 10/28/19 18:42 Pain Level 9 10/28/19 18:42
[2019-10-28] MEDS: Normal Saline Flush 10 ML SYR IVP (19:05)
[2019-10-28 19:16] LABS: Abs Immature Grans 0.04 10^3/uL (0.0-0.06); Absolute Basophil Count 0.03 10^3/uL (0.0-0.2); Absolute Eosinophil Count 0.15 10^3/uL (0.0-0.7); Absolute Lymphocyte Count 1.88 10^3/uL (1.2-3.4); Absolute Monocyte Count 0.79 10^3/uL (0.1-0.8); Absolute Neutrophil Count 5.41 10^3/uL (1.2-6.7); Basophils % 0.4; Eosinophils % 1.8; HCT 41.9 % (36.0-46.0); HGB 14.1 g/dL (11.2-15.7); Immature Grans % 0.5; Lymphocytes % 22.7; MCH 31.9 pg (27.0-33.0); MCHC 33.7 % (32.0-36.0); MCV 94.8 fL (80-95); MPV 10.6 fL (8.0-11.0); Monocytes % 9.5; Neutrophils % 65.1; Nucleated RBC 0 %; Platelet Count 188 10^3/uL (130-400); RBC 4.42 10^6/uL (3.93-5.22); RDW 11.9 % (11.7-14.6); RDW-SD 41.4 fL
[2019-10-28] MEDS: Lactated Ringers 1,000 ML 250 ML IV (19:16)
[2019-10-28] MEDS: Ondansetron 4 MG/2 ML VIAL IVP (19:19)
[2019-10-28 19:24] LABS: Lactate 1.5 mmol/L (0.6-1.4)
[2019-10-28] MEDS: CLINDAMYCIN 600 MG/50 ML BAG 100 MG IVPB (19:26)
[2019-10-28 19:48] LABS: ALT 36 U/L (14-59); AST 18 U/L (15-37); Albumin 3.6 g/dL (3.4-5.0); Alkaline Phosphatase 77 U/L (46-116); Anion Gap 10.2 mmol/L (3-11); BUN 8 mg/dL (7-18); Bilirubin, Total 0.3 mg/dL (0.2-1.0); C-Reactive Protein 2.54 mg/dL (0.0-0.3); CO2 23.8 mmol/L (21.0-32.0); CREATININE 0.73 mg/dL (0.55-1.02); Calcium 8.2 mg/dL (8.5-10.1); Chloride 104 mmol/L (98-107); Glucose 102 mg/dL (74-106); Potassium 3.8 mmol/L (3.5-5.1); Sodium 138 mmol/L (136-145); Total Protein 7.2 g/dL (6.4-8.2)
[2019-10-28 19:55] LABS: ESR 37 mm/hr (0-20)
[2019-10-28 21:10] VITALS: BP 133/87; PULSE 57; O2SAT 99
[2019-10-28] MEDS: Enoxaparin 80 MG/0.8 ML SYR SC (21:26)
== END 2019-10-28 22:30 | disposition home or self-care (01) ==
PROVIDERS: Emergency Provider Physician Assistant; PCP Nurse Practitioner
DX: L03.116 Cellulitis of left lower limb (principal); R60.0 Localized edema
CPT/HCPCS: 36415; 80053; 85652; 96361; 96365; 96372; 96375; 99284; 83605; 85025; 86140; J1650; J2405

== ENCOUNTER 2019-10-29 10:15 | Outpatient (CLI) | payer MEDICAID, SELFPAY ==
--- NOTE | 2019-10-29 11:07 | DI.US_ITS ---
EXAM: US LOWER EXTREMITY VENOUS LT CLINICAL HISTORY: SWELLING, ERYTHEMA TECHNIQUE: Left lower extremity venous ultrasound performed using grayscale, color-flow, and spectra l Doppler analysis. COMPARISON: No exams were available for comparison FINDINGS: The left common femoral, femoral and popliteal veins demonstrate normal compressibility, augmentation , and color Doppler. The posterior tibial veins are patent. The saphenofemoral junction is unremarka ble. There is no evidence of a Turpin cyst. The soft tissues are unremarkable. IMPRESSION: No DVT. DATA REPOSITORY:
== END 2019-10-29 10:35 ==
PROVIDERS: PCP Nurse Practitioner; Visit Provider Physician Assistant
DX: R60.9 Edema, unspecified (principal); L53.9 Erythematous condition, unspecified
CPT/HCPCS: 93971

== ENCOUNTER 2019-10-29 11:19 | Observation (INO) | payer MEDICAID, SELFPAY ==
[2019-10-29 11:21] VITALS: BP 117/74; PULSE 80; RESP 20; TEMP 36.7; O2SAT 98
--- NOTE | 2019-10-29 11:43 | W.ED.GENAD ---
Discharge Plan Disposition Patient Disposition: [facility] INPATIENT Condition: Stable Discharge Details Chief Complaint: Recheck Clinical Impression: Cellulitis of left leg Admit Date/Time: 10/29/19 12:01 Admit Provider: Janelle Gaitan Attending Provider: Janelle Gaitan Primary Care Provider: Kathryn Nichole ED Provider: Marina Moe Discharge Data Discharge Date/Time-TO BE ENTERED AT DEPARTURE: 10/29/19 13:25 Medical Decision Making 34-year-old female presents to the ER for the third day in a row for worsening left lower extremity cellulitis. She was originally seen on October 26 by myself after acquiring a an abrasion to the dorsal aspect of her left great toe with surrounding erythema swelling and warmth. She was seen yesterday due to vomiting she denies emesis today with just complaining of nausea. Associated symptoms include increased pain, slightly increased erythema outside original markings up the posterior calf and anterior oquendo. She did receive another IV clindamycin yesterday while in department. She did not take any of the oral antibiotic today prior to arrival. 1148: Patient originally presented to the emergency room after having an ultrasound done and here for results, ultrasound was negative for DVT, she did receive 1 dose of Lovenox yesterday while in department, at this time admission was discussed with patient once again and she does agree to admission at this time due to failed outpatient therapy. Discussed patient case in details with hospitalist Dr. Adair who agrees to accept patient for admission for left lower extremity cellulitis. She recommends oxacillin IV discussed plan with patient who verbalizes understanding. Patient to be admitted. HPI General Mode of arrival: ambulatory. Date/Time Provider Initiated Documentation: 10/29/19 11:36. Limitations to Documentation: no limitations. Information obtained by: patient. HPI Narrative: 34-year-old female presents to the ER for the third day in a row for worsening left lower extremity cellulitis. She was originally seen on October 26 by myself after acquiring a an abrasion to the dorsal aspect of her left great toe with surrounding erythema swelling and warmth. She was seen yesterday due to vomiting she denies emesis today with just complaining of nausea. Associated symptoms include increased pain, slightly increased erythema outside original markings up the posterior calf and anterior oquendo. She did receive another IV clindamycin yesterday while in department. She did not take any of the oral antibiotic today prior to arrival. Related Data Home Medications Medication Instructions Recorded Confirmed acetaminophen [Tylenol] 650 mg PO PRN PRN 03/20/19 10/29/19 sertraline 50 mg PO HS 04/09/19 10/29/19 trazodone 100 mg PO HS 04/09/19 10/29/19 clindamycin HCl 300 mg PO BID 10 Days #20 cap 10/27/19 10/29/19 hydrocodone-acetaminophen 1 tab PO BID PRN #4 tab 10/27/19 10/29/19 Previous Rx's Medication Instructions Recorded clindamycin HCl 300 mg PO BID 10 Days #20 cap 10/27/19 hydrocodone-acetaminophen 1 tab PO BID PRN #4 tab 10/27/19 Allergies Allergy/AdvReac Type Severity Reaction Status Date / Time cephalexin [Cephalexin] AdvReac Severe Abdominal Verified 10/29/19 11:24 Cramps sulfamethoxazole AdvReac Severe Nausea and Verified 10/29/19 11:24 [From Bactrim] vomiting trimethoprim [From Bactrim] AdvReac Severe Nausea and Verified 10/29/19 11:24 vomiting vancomycin AdvReac Severe diarrhea, Verified 10/29/19 11:24 redness acetaminophen AdvReac Intermediate Other (See Unverified 10/29/19 11:24 Comment) Cephalosporins AdvReac Intermediate Diarrhea Verified 10/29/19 11:24 codeine phosphate AdvReac Intermediate Vomiting Verified 10/29/19 11:24 [From Tylenol-Codeine #3] ketorolac AdvReac Intermediate Cramping/vo Verified 10/29/19 11:24 mitting oxycodone AdvReac Intermediate Nausea/vomi Verified 10/29/19 11:24 tting tramadol AdvReac Intermediate Diarrhea Verified 10/29/19 11:24 General Stated Complaint: Recheck HALINA: 3 Review of Systems Narrative: Constitutional: Negative for weight loss, alert and oriented, well groomed, normal body habitus, appears comfortable. HEENT: Denies trauma, headaches, blurry vision, nasal discharge, sore throat, trouble swallowing. Chest: Denies chest pain, palpitations, irregular rhythm, hypertension. Respiratory: Denies Shortness of breath, cough, hemoptysis. GI: Denies abdominal pain, nausea, vomiting, diarrhea, constipation. : Denies dysuria, hematuria, flank pain, rectal bleeding. Neuro: Denies dizziness, blurry vision, weakness, syncope, headache or facial numbness. Hematologic: Denies easy bruising, intolerance to heat or cold, hair loss. [facility] Medical History Anemia Anxiety BMI 32.0-32.9,adult Depression 2013 Seen in ED with SI. Referred to counselor. Endometriosis of pelvis (~2009) Stage1. Hepatic steatosis Hepatomegaly History of renal calculi (Inactive) Kidney stones Lymphedema Patellofemoral dysfunction of left knee Right upper quadrant abdominal pain (Inactive 12/15/16) RLQ abdominal pain (Acute) Vitamin D deficiency Vulvodynia Surgical History Cholecystectomy (12/28/16) Diagnostic Laproscopy (03/03/10) Stage I endometriosis EGD - MAC Extracorporeal shock wave lithotripsy Status post endovenous radiofrequency ablation (RFA) of saphenous vein (Acute) for venous insufficiency 09/06/2018 wisdom teeth extraction Family History Mother Diabetes Heart disease Hyperlipidemia Father Colon cancer Heart disease Hyperlipidemia Sister Hyperlipidemia Grandfather Diabetes Grandfather Diabetes Hyperlipidemia Asthma Grandmother Diabetes Personal history of malignant neoplasm Breast Heart disease Hyperlipidemia Grandmother No problems noted. Social History Smoking/Tobacco Use Status: Current every day Tobacco Type: cigarettes Alcohol Intake: never Drug use: Rarely Substance use type: marijuana Details: An edible like once a year Do you feel safe at home: Yes Do you feel safe in your relationship?: Yes Exam Narrative Exam Narrative: Constitutional: Alert and oriented x3. Appears stated age. Normal body habitus. Head: Normocephalic, no trauma. Eyes: Pupils PERRLA, Red reflex noted, EOM's intact. Eyelids symmetrical without lesions, discharge, or swelling. ENT: Bilateral TM's WNL, External ear normal to inspection, no mastoid TTP, swelling, or erythema, Nasal turbinates WNL, no nasal discharge. Normal dentition, Posterior pharynx WNL, no exudate. Chest: RRR, Normal S1, S2, distal pulses intact. Resp: Lungs clear to auscultation bilaterally, no wheezes, rales, or rhonchi. Musculoskeletal: Normal gait, 5/5 strength to all four extremities. Increased edema to left lower extremity, does have 2 abrasions noted to the dorsal aspect of her the base of her great toe, surrounding induration, erythema and warmth. Does have a history of lymphedema left lower leg. Skin: No suspicious rashes or lesions. Capillary refill less than 2 sec. Neurologic: Cranial nerves II-XII intact. Alert and oriented x 3. DTR's intact. Hematologic/Lymphatic: No ecchymosis, no lymphadenopathy. Course Vital Signs Vital signs: Vital Signs Temperature 36.7 C 10/29/19 11:21 Pulse 80 10/29/19 11:21 Respiratory Rate 10/29/19 11:21 Blood Pressure 117/74 10/29/19 11:21 Pulse Oximetry 98 10/29/19 11:21 Temperature 36.7 C 10/29/19 11:21 Temperature Source Skin 10/29/19 11:21 Pulse 80 10/29/19 11:21 Respiratory Rate 20 10/29/19 11:21 Blood Pressure 117/74 10/29/19 11:21 Blood Pressure Position Sitting 10/29/19 11:21 Pulse Oximetry 98 10/29/19 11:21 Oxygen Delivery Method Room Air 10/29/19 11:21 Oxygen Flow Rate 0 10/29/19 11:21 Pain Level 10 10/29/19 11:21 Comment 10/29/19 11:21
--- NOTE | 2019-10-29 12:01 | W.PM.HP.N ---
Date of service: 10/29/19 Time of Service: 12:01 Assessment and Plan Assessment and plan (1) Cellulitis of left lower leg: Status: Acute Assessment and plan: failed outpatient treatment as she is unable to take oral antibiotics at this time due to nausea, history of MSSA in abscess on that leg. Day 1 oxacillin 2 gm q4h based on previous wound cultures of that same extremity. probiotic, elevate leg as much as possible during the day. follow surveillance labs. Blood cultures taken on October 26 showed no growth to date, final report pending add probiotic. (2) Depression: Status: None Assessment and plan: continue home medications, sertraline and trazodone Qualifiers: Depression Type: unspecified Qualified Code(s): F32.9 - Major depressive disorder, single episode, unspecified (3) Lymphedema of left lower extremity: Status: Chronic Assessment and plan: consider outpatient PT for treatment (4) Tobacco use disorder: Status: Acute Assessment and plan: nicotine replacement while hospitalized (5) DVT prophylaxis: Status: Acute Assessment and plan: lovenox daily (6) Discharge planning issues: Status: Acute Assessment and plan: home when stable. History of Present Illness History of Present Illness Chief Complaint: left lower extremity cellulitis Narrative: This is a 34-year-old female presents to the ER for the third day in a row for worsening left lower extremity cellulitis. She was originally seen on October 26 after acquiring an abrasion to the dorsal aspect of her left great toe with surrounding erythema swelling and warmth. She was seen yesterday due to vomiting and at that time recommendations for inpatient treatment of her cellulitis were discussed but she opted to continue with outpatient treatment. She was noted to have a significant amount edema and was scheduled for an outpatient ultrasound which was completed and showed no evidence of DVT. She was noted to have a significant amount edema and was scheduled for an outpatient ultrasound which was completed and showed no evidence of DVT. Associated symptoms also include increased pain, slightly increased erythema outside original markings up the posterior calf and anterior oquendo. She did receive another IV clindamycin yesterday while in department. She did not take any of the oral antibiotic today prior to arrival. Her C-reactive protein has improved from 8.6 on day one 1.87 today her lactic acid is 1.1 down from 1.5, and her ESR is down from 37-29. Review of Systems Constitutional Constitutional: Denies fever(s) ENT Ears, Nose, Mouth, and Throat: Denies dizziness Cardiovascular Cardiovascular: Denies chest pain and Denies dyspnea Respiratory Respiratory: Denies cough and Denies dyspnea Gastrointestinal Gastrointestinal: Reports nausea and Denies vomiting Musculoskeletal Musculoskeletal: Reports other Comments: Left leg pain and swelling Integumentary/Breasts Skin/Breast: Reports rash Neurologic Neurologic: Denies dizziness [facility] Medical History Anemia Anxiety BMI 32.0-32.9,adult Depression 2013 Seen in ED with SI. Referred to counselor. Endometriosis of pelvis (~2009) Stage1. Hepatic steatosis Hepatomegaly History of renal calculi (Inactive) Kidney stones Lymphedema Patellofemoral dysfunction of left knee Right upper quadrant abdominal pain (Inactive 12/15/16) RLQ abdominal pain (Acute) Vitamin D deficiency Vulvodynia Surgical History Cholecystectomy (12/28/16) Diagnostic Laproscopy (03/03/10) Stage I endometriosis EGD - MAC Extracorporeal shock wave lithotripsy Status post endovenous radiofrequency ablation (RFA) of saphenous vein (Acute) for venous insufficiency 09/06/2018 wisdom teeth extraction Family History Mother Diabetes Heart disease Hyperlipidemia Father Colon cancer Heart disease Hyperlipidemia Sister Hyperlipidemia Grandfather Diabetes Grandfather Diabetes Hyperlipidemia Asthma Grandmother Diabetes Personal history of malignant neoplasm Breast Heart disease Hyperlipidemia Grandmother No problems noted. Social History Smoking/Tobacco Use Status: Current every day Tobacco Type: cigarettes Alcohol Intake: never Drug use: Rarely Substance use type: marijuana Details: An edible like once a year Do you feel safe at home: Yes Do you feel safe in your relationship?: Yes Meds Home Medications and Allergies Home Medications Medication Instructions Recorded Confirmed Type acetaminophen [Tylenol] 650 mg PO PRN PRN 03/20/19 10/29/19 History sertraline 50 mg PO HS 04/09/19 10/29/19 History trazodone 100 mg PO HS 04/09/19 10/29/19 History clindamycin HCl 300 mg PO BID 10 Days #20 cap 10/27/19 10/29/19 Rx hydrocodone-acetaminophen 1 tab PO BID PRN #4 tab 10/27/19 10/29/19 Rx Allergies Allergy/AdvReac Type Severity Reaction Status Date / Time cephalexin [Cephalexin] AdvReac Severe Abdominal Verified 10/29/19 11:24 Cramps sulfamethoxazole AdvReac Severe Nausea and Verified 10/29/19 11:24 [From Bactrim] vomiting trimethoprim [From Bactrim] AdvReac Severe Nausea and Verified 10/29/19 11:24 vomiting vancomycin AdvReac Severe diarrhea, Verified 10/29/19 11:24 redness acetaminophen AdvReac Intermediate Other (See Unverified 10/29/19 11:24 Comment) Cephalosporins AdvReac Intermediate Diarrhea Verified 10/29/19 11:24 codeine phosphate AdvReac Intermediate Vomiting Verified 10/29/19 11:24 [From Tylenol-Codeine #3] ketorolac AdvReac Intermediate Cramping/vo Verified 10/29/19 11:24 mitting oxycodone AdvReac Intermediate Nausea/vomi Verified 10/29/19 11:24 tting tramadol AdvReac Intermediate Diarrhea Verified 10/29/19 11:24 Exam Const General: cooperative, comfortable and no acute distress Nutritional Appearance: overweight Orientation: alert, awake and oriented x3 HENMT Head: normal to inspection, normocephalic and atraumatic Mouth: oral mucosae normal Resp Effort & Inspection: normal respiratory effort Auscultation: clear to auscultation bilaterally Cardio Rate: regular rate Rhythm: regular rhythm Heart Sounds: no murmurs GI Inspection: normal to inspection Palpation: soft Auscultation: normal bowel sounds Skin Lesions: lesion noted (2 intact scabs to dorsum left foot with some surrounding erythema) Rashes: rashes noted (Left lower extremity including foot to just below her knee, faint in color,) and other (Within skin markings) Neuro General: patient alert, patient awake and patient oriented x3 Cranial Nerves: CN's II-XI intact bilaterally Extrem General: normal to inspection and full ROM Left lower extremity: edema (Bilateral left greater than right) Results Labs Result diagrams: 10/29/19 12:20 10/29/19 12:20 Last Vital Signs Temp 36.7 C 10/29/19 11:21 Pulse 80 10/29/19 11:21 Resp 20 10/29/19 11:21 BP 117/74 10/29/19 11:21 Pulse Ox 98 10/29/19 11:21 COVID-19 Screening Have you,or household,traveled outside [place] in last 14 days?: No Had IN PERSON contact w/suspected or confirmed C-19 person: No
[2019-10-29] MEDS: Acetaminophen 325 MG TAB 650 MG PO (12:20)
[2019-10-29 12:37] LABS: Lactate 1.1 mmol/L (0.6-1.4)
[2019-10-29 12:39] LABS: Abs Immature Grans 0.03 10^3/uL (0.0-0.06); Absolute Basophil Count 0.03 10^3/uL (0.0-0.2); Absolute Eosinophil Count 0.16 10^3/uL (0.0-0.7); Absolute Lymphocyte Count 1.63 10^3/uL (1.2-3.4); Absolute Monocyte Count 0.58 10^3/uL (0.1-0.8); Basophils % 0.4; Eosinophils % 2.3; HCT 39.1 % (36.0-46.0); Immature Grans % 0.4; Lymphocytes % 23.2; MCHC 33.2 % (32.0-36.0); MCV 96.3 fL (80-95); MPV 10.3 fL (8.0-11.0); Monocytes % 8.3; Neutrophils % 65.4; Nucleated RBC 0 %; Platelet Count 177 10^3/uL (130-400); RBC 4.06 10^6/uL (3.93-5.22); RDW 12.1 % (11.7-14.6); RDW-SD 42.5 fL; WBC 7.03 10^3/uL (4.4-10.8)
[2019-10-29 12:54] LABS: ALT 31 U/L (14-59); AST 15 U/L (15-37); Albumin 3.3 g/dL (3.4-5.0); Alkaline Phosphatase 71 U/L (46-116); Anion Gap 7.3 mmol/L (3-11); BUN 5 mg/dL (7-18); Bilirubin, Total 0.2 mg/dL (0.2-1.0); C-Reactive Protein 1.87 mg/dL (0.0-0.3); CO2 26.7 mmol/L (21.0-32.0); CREATININE 0.66 mg/dL (0.55-1.02); Calcium 8.1 mg/dL (8.5-10.1); Chloride 104 mmol/L (98-107); Glucose 99 mg/dL (74-106); Potassium 3.8 mmol/L (3.5-5.1); Sodium 138 mmol/L (136-145); Total Protein 6.5 g/dL (6.4-8.2)
[2019-10-29 13:20] VITALS: BP 108/70; PULSE 64; RESP 20; TEMP 36.2; O2SAT 98
[2019-10-29 13:38] VITALS: BP 105/70; PULSE 61; RESP 18; TEMP 36.7; O2SAT 98
[2019-10-29 13:39] LABS: ESR 29 mm/hr (0-20)
[2019-10-29] MEDS: Enoxaparin 40 MG/0.4 ML SYR SC (13:49)
[2019-10-29] MEDS: Ibuprofen 600 MG TAB PO ×2 (15:22→21:31)
[2019-10-29 16:30] VITALS: BP 108/74; PULSE 69; RESP 18; TEMP 36.3; O2SAT 98
[2019-10-29 16:39] LABS: Bilirubin Negative (Negative); Blood Negative (Negative); Clarity Clear (Clear); Glucose Negative (Negative); Ketones Negative (Negative); Leukocyte Esterase Negative (Negative); Nitrite Negative (Negative); Urobilinogen 0.2 EU/dL (Up TO 0.2)
[2019-10-29 17:16] LABS: *AMPHETAMINES SCREEN URINE Negative (Negative); *BARBITURATES SCREEN URINE Negative (Negative); *BENZODIAZEPINES SCREEN URINE Negative (Negative); Cannabinoids THC Negative (Negative); Cocaine Screen,Urine Negative (Negative); METHADONE URINE SCREEN Negative (Negative); OPIATES URINE SCREEN POSITIVE (Negative)
[2019-10-29 17:30] LABS: Tricyclic Antidepressants POSITIVE (Negative)
[2019-10-29 20:07] VITALS: BP 124/73; PULSE 69; RESP 18; TEMP 36.7; O2SAT 96
[2019-10-29] MEDS: Normal Saline Flush 10 ML SYR IVP (20:14)
[2019-10-29] MEDS: traZODone 100 MG TAB PO (21:31)
[2019-10-29] MEDS: Sertraline 50 MG TAB PO (21:31)
[2019-10-30] MEDS: Normal Saline Flush 10 ML SYR IVP ×3 (00:07→08:21)
[2019-10-30 01:32] LABS: COVID-19 RT-PCR UVMMC Result Negative (Negative)
[2019-10-30 07:50] LABS: Abs Immature Grans 0.03 10^3/uL (0.0-0.06); Absolute Basophil Count 0.03 10^3/uL (0.0-0.2); Absolute Eosinophil Count 0.19 10^3/uL (0.0-0.7); Absolute Lymphocyte Count 1.66 10^3/uL (1.2-3.4); Absolute Monocyte Count 0.58 10^3/uL (0.1-0.8); Absolute Neutrophil Count 3.85 10^3/uL (1.2-6.7); Basophils % 0.5; HCT 38.2 % (36.0-46.0); Immature Grans % 0.5; Lymphocytes % 26.2; MCH 32.3 pg (27.0-33.0); MPV 10.1 fL (8.0-11.0); Monocytes % 9.1; Neutrophils % 60.7; Nucleated RBC 0 %; Platelet Count 171 10^3/uL (130-400); RBC 4.02 10^6/uL (3.93-5.22); RDW 12.1 % (11.7-14.6); RDW-SD 42.2 fL; WBC 6.34 10^3/uL (4.4-10.8)
[2019-10-30 08:01] LABS: Hemoglobin A1C 5.4 % (3.8-5.6)
[2019-10-30 08:15] LABS: Anion Gap 6.2 mmol/L (3-11); BUN 6 mg/dL (7-18); C-Reactive Protein 1.66 mg/dL (0.0-0.3); CO2 23.8 mmol/L (21.0-32.0); CREATININE 0.58 mg/dL (0.55-1.02); Calcium 8.3 mg/dL (8.5-10.1); Chloride 108 mmol/L (98-107); Glucose 103 mg/dL (74-106); Magnesium 2.1 mg/dL (1.8-2.4); Potassium 4.1 mmol/L (3.5-5.1); Sodium 138 mmol/L (136-145); TSH (W/Ref FT4) 0.78 uIU/mL (0.36-3.74)
[2019-10-30 08:23] VITALS: BP 108/73; PULSE 60; RESP 19; TEMP 36; O2SAT 97
[2019-10-30 08:43] LABS: Procalcitonin < 0.1 ng/mL
--- NOTE | 2019-10-30 10:01 | W.PM.DS.N ---
Date of service: 10/30/19 Time of Service: 10:02 DS: Diagnosis Discharge Diagnosis (1) Cellulitis of left lower leg: Status: Acute (2) Depression: Status: None (3) Lymphedema of left lower extremity: Status: Chronic (4) Tobacco use disorder: Status: Acute Discharge Plan Disposition Patient Disposition: HOME Condition: Stable Discharge Details Chief Complaint: Recheck Clinical Impression: Cellulitis of left leg Reason For Visit: CELLULITIS OF LLE, NOT TOLERATING ORAL THERAPY Admit Date/Time: 10/29/19 12:01 Admit Provider: Janelle Gaitan Attending Provider: Janelle Gaitan Primary Care Provider: Kathryn Nichole ED Provider: [facility] Course Hospital Course: This is a 34-year-old female presents to the ER for the third day in a row for worsening left lower extremity cellulitis. She was originally seen on October 26 after acquiring an abrasion to the dorsal aspect of her left great toe with surrounding erythema swelling and warmth. She was seen yesterday due to vomiting and at that time recommendations for inpatient treatment of her cellulitis were discussed but she opted to continue with outpatient treatment. She was noted to have a significant amount edema and was scheduled for an outpatient ultrasound which was completed and showed no evidence of DVT. She was noted to have a significant amount edema and was scheduled for an outpatient ultrasound which was completed and showed no evidence of DVT. Associated symptoms also include increased pain, slightly increased erythema outside original markings up the posterior calf and anterior oquendo. She was referred to observation for intolerance of PO clindamycin. She was started on oxacillin and her symptoms continued to improve. Her edema and erythema improved overnight. she was afebrile. CRP continues to decline and today at 1.66 from 8.6. She will be discharged to home to complete a 14 day course of dicloxacillin. case discussed with Dr Gaitan who is in agreement Home Meds and New Rx's Prescriptions: New dicloxacillin 500 mg capsule 500 mg PO Q6H Qty: 52 RF: 0 Continued acetaminophen [Tylenol] 325 mg Capsule 650 mg PO PRN PRNRF: 0 trazodone 100 mg tablet 100 mg PO HS RF: 0 sertraline 50 mg tablet 50 mg PO HS RF: 0 Discontinued clindamycin HCl 300 mg capsule 300 mg PO BID 10 Days Qty: 20 RF: 0 hydrocodone-acetaminophen 5-325 mg tablet 1 tab PO BID PRN (Reason: pain) Qty: 4 RF: 0 Discharge Instructions Instructions: Cellulitis (DC) Additional Instructions: elevate leg as much as possible during the day take all your antibiotics as prescribed even if you feel better. Stand Alone Forms: Nursing Discharge Form Referrals: Kathryn Nichole NP [Primary Care Provider] - 11/08/19 3:00 pm (Your appointment on 10/30 has been cancelled) Activity:: Activity as Tolerated Equipment/Supplies:: No Equipment Needed Diet:: As Tolerated Discharge Orders Discharge Orders: Discharge Order (Routine); Ordered 10/30/19 Ordered By: Sulema Soriano Discharge Data Discharge Date/Time-TO BE ENTERED AT DEPARTURE: 10/30/19 12:46 DS: Summary Status at Discharge Functional status at discharge: independent ambulation Overall status at discharge: patient is progressing back to baseline Mental Status: mental status grossly normal Speech and Movement: speech and movement normal Mood: congruent mood Affect: normal affect Exam Const General: cooperative, comfortable and no acute distress Nutritional Appearance: overweight Orientation: alert, awake and oriented x3 HENMT Head: normal to inspection, normocephalic and atraumatic Mouth: oral mucosae normal Resp Effort & Inspection: normal respiratory effort Auscultation: clear to auscultation bilaterally Cardio Rate: regular rate Rhythm: regular rhythm Heart Sounds: no murmurs GI Inspection: normal to inspection Palpation: soft Auscultation: normal bowel sounds Skin Lesions: lesion noted (2 intact scabs to dorsum left foot with some surrounding erythema) Rashes: rashes noted (Left lower extremity including foot to just below her knee, faint in color,) and other (Within skin markings and improved markedly since admission) Neuro General: patient alert, patient awake and patient oriented x3 Cranial Nerves: CN's II-XI intact bilaterally Extrem General: normal to inspection and full ROM Left lower extremity: edema (Bilateral left greater than right) Psych Mental Status: mental status grossly normal Speech and Movement: speech and movement normal Mood: congruent mood Affect: normal affect DS: Data Vitals/I&O Vitals and I&O: Vital Signs Temperature 36 C L 10/30/19 08:23 Temperature Source Tympanic 10/30/19 08:23 Pulse 60 10/30/19 08:23 Pulse Rhythm Regular 10/29/19 15:23 Respiratory Rate 19 10/30/19 08:23 Respiratory Effort Non-Labored 10/29/19 19:30 Respiratory Depth Normal 10/29/19 19:30 Respiratory Pattern Normal 10/29/19 19:30 Blood Pressure 108/73 10/30/19 08:23 Blood Pressure Position Sitting 10/29/19 11:21 Pulse Oximetry 97 10/30/19 08:23 Oxygen Delivery Method Room Air 10/29/19 20:07 Oxygen Flow Rate 0 10/29/19 20:07 Pain Level 0 10/30/19 08:23 Comment 10/29/19 11:21 Intake & Output 10/29/19 10/29/19 10/30/19 11:59 23:59 11:59 Intake Total 650 / 650 100 / 100 Output Total 300 / 300 Balance 350 / 350 100 / 100 Weight 88.451 kg 88.451 kg Intake: IV 150 / 150 100 / 100 Oral 500 / 500 Output: Urine 300 / 300 Other: Urine Color Yellow Urine Appearance Clear Sediment Voiding Methods Toilet Data Completed and Pending Labs on day of discharge: Labs from last 24 hours 10/30/19 10/30/19 10/30/19 07:41 07:41 07:41 WBC 6.34 RBC 4.02 Hgb 13.0 Hct 38.2 MCV 95.0 MCH 32.3 MCHC 34.0 RDW 12.1 Plt Count 171 MPV 10.1 Immature Gran % 0.5 Neutrophils % 60.7 Lymphocytes % 26.2 Monocytes % 9.1 Eosinophils % 3.0 Basophils % 0.5 Absolute Neutrophils 3.85 Absolute Lymphocytes 1.66 Absolute Monocytes 0.58 Absolute Eosinophils 0.19 Absolute Basophils 0.03 ESR Sodium Potassium Chloride Carbon Dioxide Anion Gap BUN Creatinine Estimated GFR/1.73 m2 Glucose Hemoglobin A1c 5.4 Lactate Calcium Magnesium Total Bilirubin AST ALT Alkaline Phosphatase C-Reactive Protein Total Protein Albumin Procalcitonin < 0.1 TSH Urine Color Urine Clarity Urine pH Ur Specific [place] Urine Protein Urine Ketones Urine Blood Urine Nitrite Urine Bilirubin Urine Urobilinogen Ur Leukocyte Esterase Urine Glucose Urine Opiates Screen Urine Methadone Screen Ur Barbiturates Screen Ur Tricyclics Screen Ur Amphetamines Screen U Benzodiazepines Scrn Urine Cocaine Screen Ur THC Screen COVID-19 PCR Nasopharyn COVID-19 PCR Ref Test Perform Site 0810/29/19 10/29/19 07:41 16:16 16:16 WBC RBC Hgb Hct MCV MCH MCHC RDW Plt Count MPV Immature Gran % Neutrophils % Lymphocytes % Monocytes % Eosinophils % Basophils % Absolute Neutrophils Absolute Lymphocytes Absolute Monocytes Absolute Eosinophils Absolute Basophils ESR Sodium 138 Potassium 4.1 Chloride 108 H Carbon Dioxide 23.8 Anion Gap 6.2 BUN 6 L Creatinine 0.58 Estimated GFR/1.73 m2 >= 60.00 Glucose 103 Hemoglobin A1c Lactate Calcium 8.3 L Magnesium 2.1 Total Bilirubin AST ALT Alkaline Phosphatase C-Reactive Protein 1.66 H Total Protein Albumin Procalcitonin TSH 0.78 Urine Color Yellow Urine Clarity Clear Urine pH 6.0 Ur Specific [place] 1.020 Urine Protein Negative Urine Ketones Negative Urine Blood Negative Urine Nitrite Negative Urine Bilirubin Negative Urine Urobilinogen 0.2 Ur Leukocyte Esterase Negative Urine Glucose Negative Urine Opiates Screen Positive A Urine Methadone Screen Negative Ur Barbiturates Screen Negative Ur Tricyclics Screen Positive A Ur Amphetamines Screen Negative U Benzodiazepines Scrn Negative Urine Cocaine Screen Negative Ur THC Screen Negative COVID-19 PCR Nasopharyn COVID-19 PCR Ref Test Perform Site 10/29/19 10/29/19 10/29/19 12:45 12:20 12:20 WBC 7.03 RBC 4.06 Hgb 13.0 Hct 39.1 MCV 96.3 H MCH 32.0 MCHC 33.2 RDW 12.1 Plt Count 177 MPV 10.3 Immature Gran % 0.4 Neutrophils % 65.4 Lymphocytes % 23.2 Monocytes % 8.3 Eosinophils % 2.3 Basophils % 0.4 Absolute Neutrophils 4.60 Absolute Lymphocytes 1.63 Absolute Monocytes 0.58 Absolute Eosinophils 0.16 Absolute Basophils 0.03 ESR 29 H Sodium Potassium Chloride Carbon Dioxide Anion Gap BUN Creatinine Estimated GFR/1.73 m2 Glucose Hemoglobin A1c Lactate 1.1 Calcium Magnesium Total Bilirubin AST ALT Alkaline Phosphatase C-Reactive Protein Total Protein Albumin Procalcitonin TSH Urine Color Urine Clarity Urine pH Ur Specific [place] Urine Protein Urine Ketones Urine Blood Urine Nitrite Urine Bilirubin Urine Urobilinogen Ur Leukocyte Esterase Urine Glucose Urine Opiates Screen Urine Methadone Screen Ur Barbiturates Screen Ur Tricyclics Screen Ur Amphetamines Screen U Benzodiazepines Scrn Urine Cocaine Screen Ur THC Screen COVID-19 PCR Negative Nasopharyn COVID-19 PCR Not Applicable Ref Test Perform Site [facility] 10/29/19 12:20 WBC RBC Hgb Hct MCV MCH MCHC RDW Plt Count MPV Immature Gran % Neutrophils % Lymphocytes % Monocytes % Eosinophils % Basophils % Absolute Neutrophils Absolute Lymphocytes Absolute Monocytes Absolute Eosinophils Absolute Basophils ESR Sodium 138 Potassium 3.8 Chloride 104 Carbon Dioxide 26.7 Anion Gap 7.3 BUN 5 L Creatinine 0.66 Estimated GFR/1.73 m2 >= 60.00 Glucose 99 Hemoglobin A1c Lactate Calcium 8.1 L Magnesium Total Bilirubin 0.2 AST 15 ALT 31 Alkaline Phosphatase 71 C-Reactive Protein 1.87 H Total Protein 6.5 Albumin 3.3 L Procalcitonin TSH Urine Color Urine Clarity Urine pH Ur Specific [place] Urine Protein Urine Ketones Urine Blood Urine Nitrite Urine Bilirubin Urine Urobilinogen Ur Leukocyte Esterase Urine Glucose Urine Opiates Screen Urine Methadone Screen Ur Barbiturates Screen Ur Tricyclics Screen Ur Amphetamines Screen U Benzodiazepines Scrn Urine Cocaine Screen Ur THC Screen COVID-19 PCR Nasopharyn COVID-19 PCR Ref Test Perform Site [facility] Medical History Anemia Anxiety BMI 32.0-32.9,adult Depression 2013 Seen in ED with SI. Referred to counselor. Endometriosis of pelvis (~2009) Stage1. Hepatic steatosis Hepatomegaly History of renal calculi (Inactive) Kidney stones Lymphedema Patellofemoral dysfunction of left knee Right upper quadrant abdominal pain (Inactive 12/15/16) RLQ abdominal pain (Acute) Vitamin D deficiency Vulvodynia Surgical History Cholecystectomy (12/28/16) Diagnostic Laproscopy (03/03/10) Stage I endometriosis EGD - MAC Extracorporeal shock wave lithotripsy Status post endovenous radiofrequency ablation (RFA) of saphenous vein (Acute) for venous insufficiency 09/06/2018 wisdom teeth extraction Family History Mother Diabetes Heart disease Hyperlipidemia Father Colon cancer Heart disease Hyperlipidemia Sister Hyperlipidemia Grandfather Diabetes Grandfather Diabetes Hyperlipidemia Asthma Grandmother Diabetes Personal history of malignant neoplasm Breast Heart disease Hyperlipidemia Grandmother No problems noted. Social History Smoking/Tobacco Use Status: Current every day Tobacco Type: cigarettes Alcohol Intake: never Drug use: Rarely Substance use type: marijuana Details: An edible like once a year Do you feel safe at home: Yes Do you feel safe in your relationship?: Yes
== END 2019-10-30 12:46 | disposition home or self-care (01) ==
LOC: ER 12:46 → MS 13:26
PROVIDERS: Admitting Provider Internal Medicine; Emergency Provider Registered Nurse Emergency; PCP Nurse Practitioner; Visit Provider Internal Medicine
DX: L03.116 Cellulitis of left lower limb (principal); Z11.59 Encounter for screening for other viral diseases; D64.9 Anemia, unspecified; F41.9 Anxiety disorder, unspecified; F32.9 Major depressive disorder, single episode, unspecified; K76.0 Fatty (change of) liver, not elsewhere classified; I89.0 Lymphedema, not elsewhere classified; E55.9 Vitamin D deficiency, unspecified; F17.210 Nicotine dependence, cigarettes, uncomplicated
CPT/HCPCS: 36415; 80048; 80053; 80307; 84145; 85652; 96365; 99217; 99222; 99285; J1650; U0003; 81003; 83036; 83605; 83735; 84443; 85025; 86140; 99219; 99284; G0378; J2700

== ENCOUNTER 2019-10-31 20:58 | Emergency (ER) | payer MEDICAID, SELFPAY ==
[2019-10-31 21:04] VITALS: BP 114/81; PULSE 94; RESP 18; TEMP 36.7; O2SAT 99
--- NOTE | 2019-10-31 21:27 | NUR.NOTE ---
Nursing Note: Had negative COVID Test on Monday.
--- NOTE | 2019-10-31 21:32 | ED.GENADUL_ITS ---
Discharge Plan Disposition Patient Disposition: HOME Condition: Stable Discharge Details Chief Complaint: Orthopedic Clinical Impression: Pain in left lower leg, Cellulitis of left leg Primary Care Provider: Kathryn Nichole ED Provider: Castro Andre Home Meds and New Rx's Prescriptions: Continued dicloxacillin 500 mg capsule 500 mg PO Q6H Qty: 52 RF: 0 acetaminophen [Tylenol] 325 mg Capsule 650 mg PO PRN PRNRF: 0 trazodone 100 mg tablet 100 mg PO HS RF: 0 sertraline 50 mg tablet 50 mg PO HS RF: 0 Discharge Instructions Instructions: Cellulitis (ED) Additional Instructions: Please keep your leg elevated and rest. Use crutches and apply weight on left leg as tolerated. Please take ibuprofen over the counter. Take 600mg by mouth every 6 hours as needed for pain. Please take acetaminophen (tylenol) - 650mg every 6 hours by mouth as needed for pain. Please return tomorrow for repeat ultrasound of the left lower extremity to assess for DVT. Return to the emergency department to receive your results of the study tomorrow. You were given a single dose of Eliquis tonight. This is a blood thinner. Avoid any activities that could result in trauma or fall. Please contact your primary care physician to arrange follow-up. Return to the ER for any worsening or new concerning symptoms including worsening pain, numbness or tingling, return of redness. Referrals: Kathryn Nichole, EXPLOSIVE ORDNANCE TECHNICIAN [Primary Care Provider] - Discharge Data Discharge Date/Time-TO BE ENTERED AT DEPARTURE: 10/31/19 22:15 Medical Decision Making 34-year-old female with chronic lymphedema of the lower extremities recently discharged yesterday after hospitalization for left lower extremity cellulitis. Cellulitis was much improved on discharge. She notes that since this morning she has had worse pain in the left lower extremity. No return of erythema. No worsening swelling. Compartments of the left lower extremity are soft. She does have tenderness posterior proximal lower leg and posterior knee. There is no knee effusion present. Consider DVT. Patient did have a negative DVT study on 10/29/2019 but was then hospitalized and has been relatively immobile. Consider subsequent development of DVT. I will give a dose of Eliquis tonight and have her return tomorrow morning for another ultrasound. I will give a single dose of oxycodone here for discomfort. Plan will be to continue antibiotics as prescribed and monitor her leg closely for any worsening inflammatory changes. Plan discussed with patient who is in agreement. Patient was encouraged to return immediately should have any worsening or new concerning symptoms. HPI General Mode of arrival: ambulatory . Date/Time Provider Initiated Documentation: 10/31/19 21:01 . Limitations to Documentation: no limitations . Information obtained by: patient . HPI Narrative: 33-year-old female with history of lymphedema, recent cellulitis of the left lower extremity, 1 day status post discharge, returns with chief complaint of left leg pain. Patient notes pain posterior proximal lower leg and posterior knee that started earlier today. Pain is moderate. Patient is concerned that infection is returning. She notes redness much improved from prior to hospitalization and has not returned. No associated fever. No numbness or tingling. Related Data Home Medications Medication Instructions Recorded Confirmed acetaminophen [Tylenol] 650 mg PO PRN PRN 03/20/19 10/31/19 sertraline 50 mg PO HS 04/09/19 10/31/19 trazodone 100 mg PO HS 04/09/19 10/31/19 dicloxacillin 500 mg PO Q6H #52 cap 10/30/19 10/31/19 Previous Rx's Medication Instructions Recorded dicloxacillin 500 mg PO Q6H #52 cap 10/30/19 Allergies Allergy/AdvReac Type Severity Reaction Status Date / Time cephalexin [Cephalexin] AdvReac Severe Abdominal Verified 10/31/19 21:19 Cramps sulfamethoxazole AdvReac Severe Nausea and Verified 10/31/19 21:19 [From Bactrim] vomiting trimethoprim [From Bactrim] AdvReac Severe Nausea and Verified 10/31/19 21:19 vomiting vancomycin AdvReac Severe diarrhea, Verified 10/31/19 21:19 redness acetaminophen AdvReac Intermediate Other (See Unverified 10/31/19 21:21 Comment) Cephalosporins AdvReac Intermediate Diarrhea Verified 10/31/19 21:19 codeine phosphate AdvReac Intermediate Vomiting Verified 10/31/19 21:19 [From Tylenol-Codeine #3] ketorolac AdvReac Intermediate Cramping/vo Verified 10/31/19 21:19 mitting oxycodone AdvReac Intermediate Nausea/vomi Verified 10/31/19 21:19 tting tramadol AdvReac Intermediate Diarrhea Verified 10/31/19 21:19 General Stated Complaint: Orthopedic HALINA: 3 Review of Systems Constitutional Constitutional: Denies fever(s) Integumentary/Breasts Skin/Breast: Reports as per [facility] Medical History Anemia Anxiety BMI 32.0-32.9,adult Depression 2013 Seen in ED with SI. Referred to counselor. Endometriosis of pelvis (~2009) Stage1. Hepatic steatosis Hepatomegaly History of renal calculi (Inactive) Kidney stones Lymphedema Patellofemoral dysfunction of left knee Right upper quadrant abdominal pain (Inactive 12/15/16) RLQ abdominal pain (Acute) Vitamin D deficiency Vulvodynia Surgical History Cholecystectomy (12/28/16) Diagnostic Laproscopy (03/03/10) Stage I endometriosis EGD - MAC Extracorporeal shock wave lithotripsy Status post endovenous radiofrequency ablation (RFA) of saphenous vein (Acute) for venous insufficiency 09/06/2018 wisdom teeth extraction Family History Mother Diabetes Heart disease Hyperlipidemia Father Colon cancer Heart disease Hyperlipidemia Sister Hyperlipidemia Grandfather Diabetes Grandfather Diabetes Hyperlipidemia Asthma Grandmother Diabetes Personal history of malignant neoplasm Breast Heart disease Hyperlipidemia Grandmother No problems noted. Social History Smoking/Tobacco Use Status: Current every day Tobacco Type: cigarettes Alcohol Intake: never Drug use: Rarely Substance use type: marijuana Details: An edible like once a year Do you feel safe at home: Yes Do you feel safe in your relationship?: Yes Exam Const General: cooperative and no acute distress HENMT Mouth: moist mucous membranes Eyes Conjunctivae: normal conjunctivae Sclera: normal sclerae Cardio Rate: regular rate Rhythm: regular rhythm Pulses: dorsalis pedis present bilaterally 2+ Skin General skin exam: no rashes or lesions noted Neuro General: patient alert, patient awake and tone normal Extrem Left lower extremity: knee Details: tenderness (Posterior knee) and lower leg Details: tenderness Location: of the posterior calf, non-pitting edema and other (Compartments are soft); no localized swelling and no unusual warmth Psych Appearance: grossly normal Mental Status: mental status grossly normal Course Vital Signs Vital signs: Vital Signs Temperature 36.7 C 10/31/19 21:04 Pulse 94 H 10/31/19 21:04 Respiratory Rate 18 10/31/19 21:04 Blood Pressure 114/81 10/31/19 21:04 Pulse Oximetry 99 10/31/19 21:04 Temperature 36.7 C 10/31/19 21:04 Temperature Source Temporal Artery Scan 10/31/19 21:04 Pulse 94 H 10/31/19 21:04 Respiratory Rate 18 10/31/19 21:04 Respiratory Effort 10/31/19 21:14 Blood Pressure 114/81 10/31/19 21:04 Blood Pressure Position Sitting 10/31/19 21:04 Pulse Oximetry 99 10/31/19 21:04 Oxygen Delivery Method Room Air 10/31/19 21:04 Oxygen Flow Rate 0 10/31/19 21:04
[2019-10-31] MEDS: Apixaban 5 MG TAB 10 MG PO (21:42)
[2019-10-31] MEDS: Ibuprofen 600 MG TAB PO (21:43)
[2019-10-31] MEDS: HYDROcodone 5/Acetaminophen 325 TAB PO (21:45)
[2019-10-31 22:05] VITALS: BP 122/78; PULSE 80; RESP 16; O2SAT 97
== END 2019-10-31 22:15 | disposition home or self-care (01) ==
PROVIDERS: Emergency Provider Student in an Organized Health Care Education/Training Program; PCP Nurse Practitioner
DX: L03.116 Cellulitis of left lower limb (principal); M79.662 Pain in left lower leg; I89.0 Lymphedema, not elsewhere classified
CPT/HCPCS: 99283; E0114

== ENCOUNTER 2020-01-04 02:14 | Emergency (ER) | payer MEDICAID, SELFPAY ==
[2020-01-04 02:18] VITALS: BP 144/77; PULSE 59; RESP 18; TEMP 36.8; O2SAT 99
--- NOTE | 2020-01-04 02:19 | ED.GENADUL_ITS ---
Discharge Plan Disposition Patient Disposition: HOME Condition: Good Discharge Details Clinical Impression: Pelvic pain Primary Care Provider: Kathryn Nichole ED Provider: Rory Chowdary Meds and New Rx's Prescriptions: Continued acetaminophen [Tylenol] 325 mg Capsule 650 mg PO PRN PRNRF: 0 trazodone 100 mg tablet 100 mg PO HS RF: 0 sertraline 50 mg tablet 50 mg PO HS RF: 0 Discharge Instructions Additional Instructions: Be sure to get your ultrasound on Monday as scheduled. Continue Tylenol as needed for pain. Follow-up with primary care for [facility] when ultrasound completed. Return to ED for fever, vomiting, new or worsening pain, heavy vaginal bleeding. Referrals: Kathryn Nichole, DYNAMICS AX TECHNICAL ARCHITECT [Primary Care Provider] - Medical Decision Making I have reviewed the patient's notes, specifically her primary care notes. She has an narcotic contract. She has missed appointments previously. She has been referred to the pain clinic but they do not want to see her until after nephrology evaluation. Work-up with urology has been negative. She has been referred to CONTINUOUS ABSORPTION PROCESS OPERATOR as well. Now patient reporting ultrasound scheduled for Monday. Complains of pain but has a completely benign abdomen as well as normal pelvic exam. Urine test was negative on Monday at [facility] and is negative here. I have discussed with her the need to follow-up. I have also discussed with her that I will not provide narcotic pain medication for undifferentiated pain. She can try to get the ultrasound done before Monday. She may also contact [facility] for follow-up but again they are likely going to want the ultrasound as well. Patient will be discharged at this time. Medical Records Medical records reviewed: Yes I reviewed the patient's medical records. HPI General Mode of arrival: ambulatory . Date/Time Provider Initiated Documentation: 01/04/20 02:15 . Limitations to Documentation: no limitations . Information obtained by: patient, RN notes reviewed and old records reviewed . HPI Narrative: Patient presents to ED complaining of pelvic pain. Patient was seen by me at [facility] Monday evening. From ED visits down here at [facility]. Monday she had presented reporting traumatic injury from falling off her porch when her dog knocked her over and having gross hematuria. She was reporting pain that was different than her chronic right flank and abdominal pain. Her urine did have gross blood. Her CT scan was negative for traumatic injury to the kidneys. There was an abnormality of the uterus with an ill- defined mass intrauterine being described. No ultrasound available that evening. test was negative. She was discharged out to follow-up with primary care. She now states that tonight she has developed pelvic pain. This is different than her typical pain. The hematuria has apparently stopped. She has no vaginal bleeding. She has nausea but no vomiting or diarrhea. She has no fever. Continues to complain of her chronic back pain. She does report that she has an ultrasound scheduled for this coming Monday. While she told me on Monday at [facility] that she had moved which is why she was now going to that hospital, macario she apparently was at her parents and [facility] is closer. Related Data Home Medications Medication Instructions Recorded Confirmed acetaminophen [Tylenol] 650 mg PO PRN PRN 03/20/19 01/04/20 sertraline 50 mg PO HS 04/09/19 01/04/20 trazodone 100 mg PO HS 04/09/19 01/04/20 Allergies Allergy/AdvReac Type Severity Reaction Status Date / Time cephalexin [Cephalexin] AdvReac Severe Abdominal Verified 01/04/20 02:25 Cramps sulfamethoxazole AdvReac Severe Nausea and Verified 01/04/20 02:25 [From Bactrim] vomiting trimethoprim [From Bactrim] AdvReac Severe Nausea and Verified 01/04/20 02:25 vomiting vancomycin AdvReac Severe diarrhea, Verified 01/04/20 02:25 redness acetaminophen AdvReac Intermediate Other (See Unverified 01/04/20 02:25 Comment) Cephalosporins AdvReac Intermediate Diarrhea Verified 01/04/20 02:25 codeine phosphate AdvReac Intermediate Vomiting Verified 01/04/20 02:25 [From Tylenol-Codeine #3] ketorolac AdvReac Intermediate Cramping/vo Verified 01/04/20 02:25 mitting oxycodone AdvReac Intermediate Nausea/vomi Verified 01/04/20 02:25 tting tramadol AdvReac Intermediate Diarrhea Verified 01/04/20 02:25 General HALINA: 3 Review of Systems Narrative: As documented in HPI otherwise negative as below. Const: no fever, chills, weakness Resp: no cough, SOB, pleuritic pain CV: no CP, diaphoresis, edema, syncope GI: no vomiting, diarrhea Neuro: no headache, numbness, focal weakness, confusion PFSH Medical History (Updated 01/04/20 @ 03:04 by Rory Chowdary MD) Anemia Anxiety BMI 32.0-32.9,adult Depression 2013 Seen in ED with SI. Referred to counselor. Endometriosis of pelvis (~2009) Stage1. Hepatic steatosis Hepatomegaly History of renal calculi Kidney stones Lymphedema Patellofemoral dysfunction of left knee Right upper quadrant abdominal pain (12/15/16) RLQ abdominal pain Vitamin D deficiency Vulvodynia Surgical History Cholecystectomy (12/28/16) Diagnostic Laproscopy (03/03/10) Stage I endometriosis EGD - MAC Extracorporeal shock wave lithotripsy Status post endovenous radiofrequency ablation (RFA) of saphenous vein for venous insufficiency 09/06/2018 wisdom teeth extraction Family History Mother Diabetes Heart disease Hyperlipidemia Father Colon cancer Heart disease Hyperlipidemia Sister Hyperlipidemia Grandfather Diabetes Grandfather Diabetes Hyperlipidemia Asthma Grandmother Diabetes Personal history of malignant neoplasm Breast Heart disease Hyperlipidemia Grandmother No problems noted. Social History Smoking/Tobacco Use Status: Current every day Tobacco Type: cigarettes Alcohol Intake: never Drug use: Rarely Substance use type: marijuana Details: An edible like once a year Do you feel safe at home: Yes Do you feel safe in your relationship?: Yes Exam Narrative Exam Narrative: Vitals: Afebrile. Blood pressure little elevated otherwise normal vitals and normal O2 saturation. Const: WDWN female in NAD. HEENT: NC/AT. Normal facial exam. Eyes: Normal conjunctiva and sclera. Neck: Supple. Trachea midline. Lungs: Normal respiratory effort. GI: Soft. NT/ND. No guarding or rebound. Pelvic: Done with female nurse present in room. Normal female genitalia. Normal-appearing cervix. No discharge. Normal bimanual exam. No tenderness. Neuro: A+O x 3. Normal speech, mentation, gait. Cranial nerves II - XII grossly intact. No gross motor or sensory deficit. Ext: No C/C/E. Skin: Warm and dry without rash.
--- NOTE | 2020-01-04 03:22 | NUR.NOTE ---
Nursing Note: Chaperoned pelvic exam GC and Ch. culture obtained.Tolerated exam without any increased pain noted.
[2020-01-06 15:44] LABS: Chlamydia Result Negative (Negative); GC Result Negative (Negative)
== END 2020-01-04 03:15 | disposition home or self-care (01) ==
LOC: ER 03:12
PROVIDERS: Emergency Provider Emergency Medicine; PCP Nurse Practitioner
DX: R10.2 Pelvic and perineal pain (principal); R11.0 Nausea
CPT/HCPCS: 81025; 87491; 87591; 99284; 99283

== ENCOUNTER 2020-01-08 00:50 | Outpatient (CLI) | payer MEDICAID, SELFPAY ==
--- NOTE | 2020-01-08 08:15 | DI.US_ITS ---
EXAM: US PELVIS TRANSVAGINAL CLINICAL HISTORY: noted on CT at [facility], HYPERTROPHY OF UTERUS, N85.2 TECHNIQUE: Transabdominal and transvaginal imaging was performed using standard protocol. COMPARISON: CT CT ABD/PELVIS W/ CONTR NO PO from 01/01/2020 FINDINGS: KIDNEYS: Kidneys are symmetric in size. No evidence of renal calculi. No evidence of hydronephrosis. No renal mass or cyst identified. UTERUS: 7.7 x 4.2 x 5.0 cm. Endometrium: 12 millimeters in thickness. No focal abnormality. Myometrium: Unremarkable. No evidence of fibroids. Cervix: Unremarkable. OVARIES: Right: Cyst or mass: 1.9 centimeter dominant follicle. Left: Cyst or mass: None. DOPPLER: Color: Symmetric and uniform flow to both ovaries. No hyperemia. Duplex: Normal ovarian arterial waveforms visualized. CUL-DE-SAC: Free fluid: None. IMPRESSION: 1. Normal-appearing uterus with endometrial stripe within normal limits. 2. Unremarkable bilateral ovaries. DATA REPOSITORY:
== END 2020-01-08 01:10 ==
PROVIDERS: PCP Nurse Practitioner; Visit Provider Nurse Practitioner
DX: N85.2 Hypertrophy of uterus (principal)
CPT/HCPCS: 76830; 76856

== ENCOUNTER 2020-01-13 12:24 | Outpatient (REF) | payer MEDICAID, SELFPAY ==
--- NOTE | 2020-01-13 11:15 | PAPFT_PTH ---
PATIENT: Rosa Stanton LOC: [facility] U#:[id number] AGE/SX: 34/F ROOM: RE01/13/[address]: Iris Miller DO : 1985 BED: DIS: 01/13/2020 SPEC #: [id number] RECD: 01/13/20 13:00 STATUS: JOSE R REQ #: [id number] DANELLE: 01/13/20 11:[address]: Iris Miller DEPT: [facility] Cytology RECD BY: Lesvia Pearce ENTERED: 01/13/20 13:01 SP TYPE: PAPFT OTHR DR: Kathryn Nichole, PhD PICK UP ATTENDANT Tissues: 1 - CX/ENDOCX FOR PAP SMEARS Procedures: PAP THIN PREP/UVM Screening HPV DNA PROBE Comments: [id number]
--- NOTE | 2020-01-13 11:15 | ENDOMET_PTH ---
PATIENT: Rosa Stanton LOC: [facility] U#:[id number] AGE/SX: 34/F ROOM: RE01/13/[address]: Iris Miller DO : 1985 BED: DIS: 01/13/2020 SPEC #: [id number] RECD: 01/13/20 12:39 STATUS: JOSE R REQ #: [id number] DANELLE: 01/13/20 11:[address]: Iris Miller DEPT: Surgical Specimen RECD BY: Lesvia Pearce ENTERED: 01/13/20 12:39 SP TYPE: Endomet OTHR DR: Kathryn Nichole, PhD INVAS TECH Tissues: 1 - ENDOMETRIUM BX/GERMAN Procedures: GROSS AND MICRO LEVEL 4 Comments: [id number]
== END 2020-01-13 12:44 ==
LOC: LBN 12:24
PROVIDERS: PCP Nurse Practitioner; Visit Provider Obstetrics & Gynecology
DX: Z12.4 Encounter for screening for malignant neoplasm of cervix (principal); N93.9 Abnormal uterine and vaginal bleeding, unspecified; Z11.51 Encounter for screening for human papillomavirus (HPV)
CPT/HCPCS: 88142; 88305; 87624

== ENCOUNTER 2020-01-24 14:41 | Emergency (ER) | payer MEDICAID, SELFPAY ==
[2020-01-24 14:48] VITALS: BP 141/74; PULSE 69; RESP 16; TEMP 37; O2SAT 100
--- NOTE | 2020-01-24 15:00 | DI.CT_ITS ---
EXAM: CT ABDOMEN PELVIS W INDICATION: RLQ abd pain and tenderness. COMPARISON: CT CT RENAL COLIC WO from 07/22/2019 TECHNIQUE: FINDINGS: CT examination of the abdomen and pelvis was performed with a bolus infusion of 100 cc of Omnipaque 3 50. Images obtained through the lung bases are unremarkable. The liver is unremarkable in appearance. Gallbladder has been surgically removed and the bile ducts are of normal diameter for a post cholecys tectomy patient. Pancreas appears normal. Spleen is unremarkable in appearance. Adrenals appear normal. The kidneys are unremarkable with no evidence of hydronephrosis, nephrolithiasis, or renal mass.. Ur inary bladder unremarkable. Abdominal aorta is of normal diameter and no major vascular abnormality is seen. No abdominal wall hernia. No abdominal or pelvic adenopathy. 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 Appendix is normal. Note is made of question wall thickening of the distal descending colon extendin g through the sigmoid to the rectum. Findings may represent colitis. Please correlate clinically. No evidence of obstruction or perforation. IMPRESSION: Question colitis involving the distal descending colon to the rectum. Please correlate clinically. RADIATION DOSE DELIVERED: 918.88mGy.cm Total DLP 918.88mGy.cm Total DLP
--- NOTE | 2020-01-24 15:16 | W.ED.GENAD ---
Discharge Plan Disposition Patient Disposition: HOME Condition: Stable Discharge Details Clinical Impression: Colitis, Abdominal pain Primary Care Provider: Kathryn Nichole ED Provider: Castro Andre Home Meds and New Rx's Prescriptions: New promethazine 25 mg tablet 25 mg PO TID PRN (Reason: nausea and vomiting) Qty: 10 RF: 0 Continued acetaminophen [Tylenol] 325 mg Capsule 650 mg PO PRN PRNRF: 0 trazodone 100 mg tablet 100 mg PO HS RF: 0 sertraline 50 mg tablet 50 mg PO HS RF: 0 Discharge Instructions Instructions: Colitis (ED) Additional Instructions: Please maintain a clear liquid diet today and tomorrow morning. You may advance her diet to bland foods like rice tomorrow afternoon. Advance diet slowly thereafter as tolerated. Please take ibuprofen over the counter. Take 600mg by mouth every 6 hours as needed for pain. Please contact your primary care physician to arrange follow-up. If pain persist, you may need to have additional diagnostic testing including colonoscopy. Return to the ER for any worsening or new concerning symptoms. Referrals: [facility] [Provider Group] Kathryn Nichole NP [Primary Care Provider] - Medical Decision Making 1531??34-year-old female with history of prior abdominal pain, history of endometriosis, here with 3 days of right lower quadrant abdominal pain, tender right lower quadrant with no peritoneal findings. We will give Dilaudid 1 mg IV for pain and Zofran 4 mg IV for nausea. Plan to obtain CT of the abdomen pelvis to assess for acute surgical pathology. 1800 -- IMPRESSION: Findings suggestive of new mild long segment distal colitis from the descending colon through the rectum. This could be infectious in etiology or could represent inflammatory bowel disease. Recommend clinical correlation and follow-up. No evidence of appendicitis. Labs reviewed and nondiagnostic. Results reviewed with the patient. Patient has remained stable. Plan for bowel rest with clear liquid diet today and tomorrow morning and then advance to soft bland food. Patient was encouraged to follow-up with gastroenterology or general surgery should symptoms persist for colonoscopy. She was encouraged to follow-up with her primary care physician on Monday. She understands she should return immediately should she have any worsening or new concerning symptoms. Lab Data Lab results reviewed: Yes I reviewed the patient's lab results. Labs: Laboratory Tests Range/Units 01/24/20 01/24/20 01/24/20 15:00 15:10 15:10 WBC (4.4-10.8) 10^3/uL 6.86 RBC (3.93-5.22) 10^6/uL 4.52 Hgb (11.2-15.7) g/dL 14.3 Hct (36.0-46.0) % 42.8 MCV (80-95) fL 94.7 MCH (27.0-33.0) pg 31.6 MCHC (32.0-36.0) % 33.4 RDW (11.7-14.6) % 11.7 Plt Count (130-400) 10^3/uL 204 MPV (8.0-11.0) fL 10.3 Immature Gran % 0.1 Neutrophils % 69.8 Lymphocytes % 23.0 Monocytes % 5.0 Eosinophils % 1.7 Basophils % 0.4 Nucleated RBC % % 0 Absolute Neutrophils (1.2-6.7) 10^3/uL 4.78 Absolute Lymphocytes (1.2-3.4) 10^3/uL 1.58 Absolute Monocytes (0.1-0.8) 10^3/uL 0.34 Absolute Eosinophils (0.0-0.7) 10^3/uL 0.12 Absolute Basophils (0.0-0.2) 10^3/uL 0.03 Sodium (136-145) mmol/L 143 Potassium (3.5-5.1) mmol/L 3.6 Chloride (98-107) mmol/L 107 Carbon Dioxide (21.0-32.0) mmol/L 28.0 Anion Gap (3-11) mmol/L 8.0 BUN (7-18) mg/dL 5 L Creatinine (0.55-1.02) mg/dL 0.77 Estimated GFR/1.73 m2 (mL/min/1.73m2) >= 60.00 Glucose (74-106) mg/dL 102 Calcium (8.5-10.1) mg/dL 8.6 Total Bilirubin (0.2-1.0) mg/dL 0.2 AST (15-37) U/L 14 L ALT (14-59) U/L 25 Alkaline Phosphatase (46-116) U/L 83 Total Protein (6.4-8.2) g/dL 6.7 Albumin (3.4-5.0) g/dL 3.6 Lipase (73-393) U/L 60 Urine Color (Yellow) Yellow Urine Clarity (Clear) Clear Urine pH (5-8) 6.5 Ur Specific [place] (1.005-1.025) >= 1.030 H Urine Protein (Negative) mg/dL Negative Urine Ketones (Negative) mg/dL Negative Urine Blood (Negative) Moderate H Urine Nitrite (Negative) Negative Urine Bilirubin (Negative) Negative Urine Urobilinogen (Up TO 0.2) EU/dL 0.2 Ur Leukocyte Esterase (Negative) Negative Urine RBC (0-2) HPF 3-5 H Urine WBC (0-5) HPF 0-2 Ur Epithelial Cells (Negative) HPF Few Urine Crystals (Negative) HPF Negative Urine Bacteria (Negative) HPF Few Urine Casts (Negative) LPF Negative Urine Mucus (Negative) Moderate Ur Culture Indicated? No Urine Glucose (Negative) mg/dL Negative HPI General Mode of arrival: ambulatory. Date/Time Provider Initiated Documentation: 01/24/20 14:56. Limitations to Documentation: no limitations. Information obtained by: patient. HPI Narrative: 34-year-old female with prior history of right lower quadrant abdominal pain listed in past medical history as well as endometriosis, presents with chief complaint of right lower quadrant pain pain started 3 days ago and has persisted and now worse today. Pain is sharp and waxes and wanes. Pain is in her abdomen. She has associated nausea and anorexia over same period. She denies pelvic pain or discharge. She does note chronic intermittent hematuria. Related Data Home Medications Medication Instructions Recorded Confirmed acetaminophen [Tylenol] 650 mg PO PRN PRN 03/20/19 01/24/20 sertraline 50 mg PO HS 04/09/19 01/24/20 trazodone 100 mg PO HS 04/09/19 01/24/20 promethazine 25 mg PO TID PRN #10 tab 01/24/20 Previous Rx's Medication Instructions Recorded promethazine 25 mg PO TID PRN #10 tab 01/24/20 Allergies Allergy/AdvReac Type Severity Reaction Status Date / Time cephalexin [Cephalexin] AdvReac Severe Abdominal Verified 01/24/20 14:57 Cramps sulfamethoxazole AdvReac Severe Nausea and Verified 01/24/20 14:57 [From Bactrim] vomiting trimethoprim [From Bactrim] AdvReac Severe Nausea and Verified 01/24/20 14:57 vomiting vancomycin AdvReac Severe diarrhea, Verified 01/24/20 14:57 redness acetaminophen AdvReac Intermediate Other (See Unverified 01/24/20 14:57 Comment) Cephalosporins AdvReac Intermediate Diarrhea Verified 01/24/20 14:57 codeine phosphate AdvReac Intermediate Vomiting Verified 01/24/20 14:57 [From Tylenol-Codeine #3] ketorolac AdvReac Intermediate Cramping/vo Verified 01/24/20 14:57 mitting oxycodone AdvReac Intermediate Nausea/vomi Verified 01/24/20 14:57 tting tramadol AdvReac Intermediate Diarrhea Verified 01/24/20 14:57 General Stated Complaint: Abd Prob HALINA: 3 Review of Systems All systems reviewed & are unremarkable except as noted in HPI and below Constitutional Constitutional: Denies fever(s) Gastrointestinal Gastrointestinal: Reports abdominal pain, Reports nausea and Reports vomiting PFSH Medical History Abnormal uterine bleeding Anemia Anxiety BMI 32.0-32.9,adult Depression 2013 Seen in ED with SI. Referred to counselor. Endometriosis of pelvis (~2009) Stage1. Hepatic steatosis Hepatomegaly History of renal calculi Kidney stones Lymphedema Patellofemoral dysfunction of left knee Right upper quadrant abdominal pain (12/15/16) RLQ abdominal pain Vitamin D deficiency Vulvodynia Surgical History Cholecystectomy (12/28/16) Diagnostic Laproscopy (03/03/10) Stage I endometriosis EGD - MAC Extracorporeal shock wave lithotripsy Status post endovenous radiofrequency ablation (RFA) of saphenous vein for venous insufficiency 09/06/2018 wisdom teeth extraction Family History Mother Diabetes Heart disease Hyperlipidemia Father Colon cancer Heart disease Hyperlipidemia Sister Hyperlipidemia Grandfather Diabetes Grandfather Diabetes Hyperlipidemia Asthma Grandmother Diabetes Personal history of malignant neoplasm Breast Heart disease Hyperlipidemia Grandmother No problems noted. Social History Smoking/Tobacco Use Status: Current every day Tobacco Type: cigarettes Smoking risk assessment performed?: Yes Alcohol Intake: never Drug use: Rarely Substance use type: marijuana Details: An edible like once a year Do you feel safe at home: Yes Do you feel safe in your relationship?: Yes Exam Const General: cooperative and no acute distress HENMT Mouth: moist mucous membranes Eyes Conjunctivae: normal conjunctivae Sclera: normal sclerae Neck Neck: trachea midline and supple Resp Auscultation: clear to auscultation bilaterally, no rales, no rhonchi and no wheezes Cardio Rate: regular rate and not tachycardic Rhythm: regular rhythm GI Palpation: soft, not firm, no guarding, no masses, not rigid and tender in the RLQ; with no rebound tenderness and Rovsing's sign negative Skin General skin exam: no rashes or lesions noted Neuro General: patient alert, patient awake, patient oriented x3 and tone normal Extrem General: no edema Psych Appearance: grossly normal Mental Status: mental status grossly normal Speech and Movement: speech and movement normal Course Vital Signs Vital signs: Vital Signs Temperature 37.0 C 01/24/20 14:48 Pulse 69 01/24/20 14:48 Respiratory Rate 16 01/24/20 14:48 Blood Pressure 141/74 H 01/24/20 14:48 Pulse Oximetry 100 01/24/20 14:48 Temperature 37.0 C 01/24/20 14:48 Temperature Source Oral 01/24/20 14:48 Pulse 69 01/24/20 14:48 Respiratory Rate 16 01/24/20 14:48 Respiratory Effort Non-Labored 01/24/20 14:55 Blood Pressure 141/74 H 01/24/20 14:48 Blood Pressure Position Sitting 01/24/20 14:48 Pulse Oximetry 100 01/24/20 14:48 Oxygen Delivery Method Room Air 01/24/20 14:48 Oxygen Flow Rate 0 01/24/20 14:48 Pain Level 10 01/24/20 14:48
[2020-01-24 15:20] LABS: Bilirubin Negative (Negative); Blood Moderate (Negative); Clarity Clear (Clear); Glucose Negative (Negative); Ketones Negative (Negative); Leukocyte Esterase Negative (Negative); Nitrite Negative (Negative); Specific Gravity >= 1.030 (1.005-1.025); Urobilinogen 0.2 EU/dL (Up TO 0.2); pH 6.5 (5-8)
[2020-01-24 15:26] LABS: Abs Immature Grans 0.01 10^3/uL (0.0-0.06); Absolute Basophil Count 0.03 10^3/uL (0.0-0.2); Absolute Eosinophil Count 0.12 10^3/uL (0.0-0.7); Absolute Lymphocyte Count 1.58 10^3/uL (1.2-3.4); Absolute Monocyte Count 0.34 10^3/uL (0.1-0.8); Absolute Neutrophil Count 4.78 10^3/uL (1.2-6.7); Basophils % 0.4; Eosinophils % 1.7; HCT 42.8 % (36.0-46.0); HGB 14.3 g/dL (11.2-15.7); Immature Grans % 0.1; MCH 31.6 pg (27.0-33.0); MCHC 33.4 % (32.0-36.0); MCV 94.7 fL (80-95); MPV 10.3 fL (8.0-11.0); Neutrophils % 69.8; Nucleated RBC 0 %; Platelet Count 204 10^3/uL (130-400); RBC 4.52 10^6/uL (3.93-5.22); RDW 11.7 % (11.7-14.6); RDW-SD 40.4 fL; WBC 6.86 10^3/uL (4.4-10.8)
[2020-01-24] MEDS: Lactated Ringers 1,000 ML 125 ML IV (15:28)
[2020-01-24] MEDS: Ondansetron 4 MG/2 ML VIAL IVP (15:30)
[2020-01-24 15:32] LABS: Bacteria Few HPF (Negative); Casts Negative LPF (Negative); Crystals Negative HPF (Negative); Epithelial Cells Few HPF (Negative); Mucus Moderate (Negative); WBC 0-2 HPF (0-5)
[2020-01-24 15:32] LABS: ALT 25 U/L (14-59); AST 14 U/L (15-37); Albumin 3.6 g/dL (3.4-5.0); Alkaline Phosphatase 83 U/L (46-116); BUN 5 mg/dL (7-18); Bilirubin, Total 0.2 mg/dL (0.2-1.0); CREATININE 0.77 mg/dL (0.55-1.02); Calcium 8.6 mg/dL (8.5-10.1); Chloride 107 mmol/L (98-107); Glucose 102 mg/dL (74-106); Lipase 60 U/L (73-393); Potassium 3.6 mmol/L (3.5-5.1); Sodium 143 mmol/L (136-145); Total Protein 6.7 g/dL (6.4-8.2)
[2020-01-24 15:33] LABS: C & S Indicated? No
[2020-01-24] MEDS: HYDROmorphone 2 MG/ML VIAL 1 MG IVP (15:33)
[2020-01-24 15:38] VITALS: BP 118/68; PULSE 73; RESP 16; O2SAT 94
[2020-01-24] MEDS: Omnipaque 350 MG/ML 100 ML BTL IJ (16:09)
[2020-01-24] MEDS: Normal Saline - Diluent 50 ML VIAL IV (16:10)
[2020-01-24] MEDS: Normal Saline Flush 10 ML SYR IVP (16:10)
[2020-01-24 16:25] VITALS: BP 135/66; PULSE 69; RESP 18; O2SAT 97
--- NOTE | 2020-01-24 16:50 | NUR.NOTE ---
Nursing Note: Patient rang call tenorio requesting more pain medication. I let her know I would ask MD. I let Dr. Andre know. Gave verbal order for Toradol. Patient lists Toradol as an allergy. Dr. Andre informed. No new orders.
--- NOTE | 2020-01-24 17:10 | NUR.NOTE ---
Nursing Note: Patient updated r/t pain med. request.
--- NOTE | 2020-01-24 17:51 | DI.VRAD_ITS ---
PROCEDURE INFORMATION: Exam: CT Abdomen And Pelvis With Contrast Exam date and time: 01/24/2020 3:17 PM Age: 34 years old Clinical indication: Other: Rlq pain and tenderness; Prior surgery; Surgery date: 6+ months; Surgery type: Gallbladder SX. Endometriosis SX x2 TECHNIQUE: Imaging protocol: Computed tomography of the abdomen and pelvis with intravenous contrast. Contrast material: OMNIPAQUE 350; Contrast volume: 99 ml; Contrast route: INTRAVENOUS (IV); COMPARISON: CT ABD/PELVIS W/ CONTR NO PO 01/01/2020 7:55 PM FINDINGS: Liver: Normal. No mass. Gallbladder and bile ducts: The patient is status post cholecystectomy. There is mild intra and extrahepatic biliary ductal dilatation to the level of the ampulla, as on prior study. No distal CBD mass or stone is identified. Pancreas: The pancreas appears unremarkable, without inflammatory change. Spleen: Normal. No splenomegaly. Adrenal glands: Normal. No mass. Kidneys and ureters: There are no urinary tract stones. There is no hydronephrosis or hydroureter. Stomach and bowel: The colon is not well evaluated due to lack of distension, but findings suggest mild new circumferential long segment edematous wall thickening of the distal colon with regions of mild mucosal hyperenhancement, extending from the descending colon through the rectum, which could represent mild colitis. Appendix: No evidence of appendicitis. Intraperitoneal space: Unremarkable. No free air. No significant fluid collection. Vasculature: Unremarkable. No abdominal aortic aneurysm. Lymph nodes: Unremarkable. No enlarged lymph nodes. Urinary bladder: Unremarkable as visualized. Reproductive: The appears to be a tampon in the vagina. The uterus is retroflexed but appears otherwise grossly unremarkable. Bones/joints: Unremarkable. No acute fracture. Soft tissues: Unremarkable. IMPRESSION: Findings suggestive of new mild long segment distal colitis from the descending colon through the rectum. This could be infectious in etiology or could represent inflammatory bowel disease. Recommend clinical correlation and follow-up. Dictated and Authenticated by: Otis Reynoso MD. Ordering:MILE Erazo MD
[2020-01-24] MEDS: Ibuprofen 600 MG TAB PO (18:13)
== END 2020-01-24 18:25 | disposition home or self-care (01) ==
PROVIDERS: Emergency Provider Student in an Organized Health Care Education/Training Program; PCP Nurse Practitioner
DX: R10.31 Right lower quadrant pain (principal); K52.9 Noninfective gastroenteritis and colitis, unspecified
CPT/HCPCS: 36415; 80053; 81025; 83690; 96361; 96374; 96375; 99285; 74177; 81003; 81015; 85025; 99284; J2405; J3490

== ENCOUNTER 2020-02-21 01:44 | Outpatient (CLI) | payer MEDICAID, SELFPAY ==
[2020-02-21 10:42] LABS: Abs Immature Grans 0.01 10^3/uL (0.0-0.06); Absolute Basophil Count 0.03 10^3/uL (0.0-0.2); Absolute Eosinophil Count 0.17 10^3/uL (0.0-0.7); Absolute Monocyte Count 0.36 10^3/uL (0.1-0.8); Absolute Neutrophil Count 3.42 10^3/uL (1.2-6.7); Basophils % 0.5; Eosinophils % 2.9; HCT 42.6 % (36.0-46.0); HGB 14.2 g/dL (11.2-15.7); Immature Grans % 0.2; Lymphocytes % 31.1; MCH 31.6 pg (27.0-33.0); MCHC 33.3 % (32.0-36.0); MCV 94.9 fL (80-95); MPV 10.2 fL (8.0-11.0); Monocytes % 6.2; Neutrophils % 59.1; Nucleated RBC 0 %; Platelet Count 191 10^3/uL (130-400); RBC 4.49 10^6/uL (3.93-5.22); RDW 12.3 % (11.7-14.6); RDW-SD 42.7 fL; WBC 5.79 10^3/uL (4.4-10.8)
[2020-02-22 17:09] LABS: COVID-19 RT-PCR Result NEGATIVE (Negative)
== END 2020-02-21 02:04 ==
PROVIDERS: PCP Nurse Practitioner; Visit Provider Obstetrics & Gynecology
DX: N93.9 Abnormal uterine and vaginal bleeding, unspecified (principal); R10.2 Pelvic and perineal pain; Z11.59 Encounter for screening for other viral diseases; Z01.818 Encounter for other preprocedural examination; Z01.812 Encounter for preprocedural laboratory examination
CPT/HCPCS: 36415; 86850; 86900; 86901; U0003; 85025

== ENCOUNTER 2020-02-26 06:47 | Inpatient (IN) | payer MEDICAID, SELFPAY ==
--- NOTE | 2020-02-24 12:22 | NUR.NOTE ---
During preop call pt. stated she was told by Dr. Miller that her boyfriend/ could come in with her and spend the night. This RN educated pt. that due to the rising number of COVID cases our visitor policy has been temporally suspended, and that she is to come in on her own. This RN did confirm with Dr. Miller that she was infact NOT told that she could have her boyfriend/ in with her, and that she had to come alone. This RN did follow-up with pt. to educate her that she needs to come by herself on day of surgery. Pt. stated understanding. Dr. Miller and Regulo's at front entrance made aware Nursing Note:
[2020-02-26] VITALS (14 sets, daily range): BP systolic 115–142; BP diastolic 58–79; PULSE 72–95; RESP 8–16; TEMP 36–36.9; O2SAT 90–98
[2020-02-26] MEDS: Lactated Ringers 1,000 ML 125 ML IV ×3 (07:10→20:09)
[2020-02-26] MEDS: Sodium Citrate 30 ML CUP PO (07:33)
[2020-02-26] MEDS: ceFAZolin 2 GM/50 ML BAG IVPB (07:50)
[2020-02-26] MEDS: Bupivacaine 0.5% Pres-Free 30 ML VIAL (09:02)
--- NOTE | 2020-02-26 09:50 | UTER_PTH ---
PATIENT: Rosa Stanton LOC: OBS U#:[id number] AGE/SX: 34/F ROOM: OBS.305 RE02/26/[address]: Iris Miller DO : 1985 BED: A DIS: 02/27/2020 SPEC #: [id number] RECD: 02/26/20 12:51 STATUS: JOSE R REQ #: [id number] DANELLE: 02/26/20 09:[address]: Iris Miller DEPT: Surgical Specimen RECD BY: Lesvia Pearce ENTERED: 02/26/20 12:52 SP TYPE: UTER OTHR DR: Kathryn Nichole, PhD PUMP SERVICER Tissues: 1 - UTERUS W OR W/O OVARIES(NOT TUMOR/PROLAPSE) Procedures: GROSS AND MICRO LEVEL 5 Comments: [id number]
[2020-02-26] MEDS: Cellulose,Oxidized 4X8 1 PACKET MC (10:18)
--- NOTE | 2020-02-26 10:36 | ROE_ITS ---
Date of service: 02/26/20 Time of Service: 10:36 Operative Note Operative Note DATE OF PROCEDURE: 02/26/20 PRE-OP DIAGNOSIS: Chronic pelvic pain, dysfunctional uterine bleeding, history of endometriosis PROCEDURE: Laparoscopically assisted vaginal hysterectomy with bilateral salpingectomy SURGEON: Iris Miller ASSISTING SURGEON: Ying Glass ANESTHESIA: GETA ESTIMATED BLOOD LOSS: 100 PATHOLOGY: other (Uterus with bilateral fallopian tubes) COMPLICATIONS: None Patient was transported to: PACU Patient's condition: stable Indications: Chronic pelvic pain, dysfunctional uterine bleeding, known endometriosis, request definitive therapy Findings: Normal-appearing uterus, fallopian tubes, and ovaries. Impression #1 endometriosis at the uterosacral cardinal ligament on the left, significantly minimal Procedure Description: Patient is a 34-year-old female with a known history of stage I endometriosis that had been previously cauterized. She has ongoing pelvic pain and irregular menstrual bleeding. This is causing her significant discomfort. She has previously been on both oral continuous, and cyclic oral contraceptive pills. She was offered a trial of Lupron therapy which she declined. She was also offered progestational agents which she also declined. Her preop evaluation included pelvic ultrasound which was essentially benign, normal Pap smear, and benign endometrial sampling. The risks, benefits, and alternatives of definitive therapy as hysterectomy were explained to patient including risk of infection, bleeding, injury to surrounding organs, risk of anesthesia, thromboembolism, pulmonary complications, and . Full informed consent was obtained. She was taken the operating suite with an IV running where she is placed in dorsal supine position. Endotracheal intubation performed by the ministration of general anesthesia with ease. She was then placed in the modified dorsal lithotomy position and prepped and draped in usual sterile fashion. Exam under anesthesia revealed a uterus that was midline and mobile without evidence of adnexal masses. Her abdomen is somewhat rotund. At this point weighted speculum was placed into the vaginal vault after Rodrigues catheter had been inserted for continuous bladder drainage. Single-tooth tenaculum was used to grasp the anterior cervix and a ZUMI uterine manipulator placed within the uterus for uterine elevation. At this point tenaculum removed and attention was turned to the abdomen. At this point & Marcaine was used to infiltrate at the umbilical incision and a transverse umbilical incision was made in the usual fashion through previous scar. This was carried down to the underlying fascia. A varies needle was inserted directly to the abdomen after elevation of the anterior abdominal wall. CO2 gas was used to create pneumoperitoneum with a maximum pressure of 15 mmHg. At this point a bladeless 12 mm trocar was inserted into the abdomen under direct visualization. The abdomen was benign. Found to be completely atraumatic. A second and third right and left lower quadrant trocar sites were made with a 5 mm bladeless sleeve and trocar. This allowed exploration of the entire abdomen and pelvis. The patient was placed in Trendelenburg and bowel was swept out of the operating field. The uterus was elevated and the left fallopian tube elevated cautery transected and ligated. This allowed exposure of the left round ligament which was cauterized transected and ligated. The left broad ligament was opened and the anterior leaf elevated and the bladder flap created. The uterine artery and vein on that side were cauterized and hemostatic. Attention was then showed turned to the right fallopian tube which was cautery transected allowing exposure of the right bowel ligament which was cautery transected and ligated. Again the right broad ligament was opened anteriorly to the peritoneum identified and the remainder of the bladder flap created. At this point all pedicles were reinspected and found to be hemostatic and attention was turned to the vaginal vault. CO2 gas was discontinued and patient returned to the dorsal supine position. At this point a weighted speculum was placed into the posterior vaginal vault and the cervix was grasped with a Avelina tenaculum at the superior and inferior position. A cautery device was used to create a circumferential incision at the cervical vaginal interface. Posterior peritoneum identified entered sharply al lowing access to the posterior cul-de-sac. A longbilled weighted speculum was then placed within and the right uterosacral cardinal complex was grasped transected and suture ligated. The remainder of the uterine pedicles were clamped transected and ligated and the uterus and fallopian tubes delivered through the vaginal vault. The anterior posterior peritoneum was identified and the vaginal cuff was closed in a horizontal fashion incorporating the uterosacral cardinal complex bilaterally for good support of the vaginal apex. There is no evidence of cystocele or rectocele and closure of the vaginal cuff. Vaginal cuff is hemostatic. At this point attention was turned to the abdomen again where CO2 gas used to insufflate the abdomen and all pedicles were inspected. There is 1 area at the right apex of the vaginal cuff which was nonhemostatic which was cauterized and found to be hemostatic. There is a small amount of Surgicel was placed. Ureters were identified peristalsing appropriately bilaterally and atraumatic. At this point gas was decreased to a 5 mmHg pressure and found to be hemostatic. This completed the surgical procedure and CO2 gas was discontinued and all instruments removed from the abdomen. Fascial incision the umbilicus was closed using 0 Vicryl suture in a simple interrupted fashion correcting the fascial defect noted there. The right and left lower quadrant trocar sites and the local incision was closed with 3-0 Monocryl suture and Steri-Strips were placed. Patient was returned to the dorsal supine position awoken anesthesia with ease with stable vital signs and Rodrigues catheter draining clear yellow urine. Findings: Normal tubes, ovaries, uterus, minimal endometriosis implants EBL: 100 mL Complications: None apparent Pathology: uterus, cervix, bilateral fallopian tubes.
[2020-02-26] MEDS: fentaNYL 100 MCG/2 ML VIAL IVP ×2 (11:59→12:15)
[2020-02-26] MEDS: HYDROcodone 5/Acetaminophen 325 TAB PO ×2 (13:28→17:25)
--- NOTE | 2020-02-26 14:00 | NUR.NOTE ---
1310 Adkmitted to room 305 via bed from PACU, IV of LR at 125 hr via L periph line patenet and infusing well. Three trocar sites present on abdomen with bandaids in place. Alert and oriented, welch in place to BSD. SCD's bilat in place . Report received from Koby Estevez RNNsandraing Note:
[2020-02-26] MEDS: Ketorolac 15 MG/ML VIAL IM ×2 (16:09→22:00)
[2020-02-26] MEDS: Docusate Sodium 100 MG CAP PO ×2 (16:09→22:00)
[2020-02-26] MEDS: Normal Saline Flush 10 ML SYR IV (16:18)
--- NOTE | 2020-02-26 16:49 | PGE_ITS ---
Date of Service Date of service: 02/26/20 Time of Service: 16:50 Assessment and Plan Assessment and plan (1) S/P laparoscopic assisted vaginal hysterectomy (LAVH): Status: Acute Assessment and plan: Postoperative day 0 status post laparoscopically assisted vaginal hysterectomy with bilateral salpingectomy. Doing well, desires early discharge. Recommend the patient stay through the night, wean from O2, transition to oral pain medication and regular diet. Ambulate. Potential discharge early a.m. tomorrow Subjective Subjective Patient reports: no new complaints, still having pain, tolerating a regular diet and flatus; denies vomiting and fever Interval history since last seen: Patient seen this evening to review her surgical procedure and discuss her discharge status. Patient has been requesting discharge to home tonight. We had a lengthy conversation regarding postoperative management. She is currently on 1 L of oxygen by nasal cannula with oxygen saturation approximately 50%. Her Rodrigues catheter is still in situ. She has had 1 dose of [place] at approximately 1:00 this afternoon but is still using Toradol IV. We discussed the fact that if she is discharged home tonight, and her pain is out of control, or she is otherwise unstable her return to the hospital would be significant and she would need to present through the emergency department with repeat Covid testing and other management. In light of this fact, she feels reasonably comfortable staying here, despite her preference for early discharge. We will work on pain management throughout the evening today. Rodrigues catheter was discontinued. We will continue to monitor her I's and O's strictly. She will ambulate, and transition from IV to oral pain medication. My anticipation would be for discharge to home early in the morning tomorrow if she continues an appropriate postoperative course Exam Const General: cooperative, comfortable and no acute distress Eyes General: appearance normal, both eyes and all related structures Resp Effort & Inspection: normal respiratory effort Cardio Rate: regular rate Extrem General: no clubbing, cyanosis or edema and other (Pneumatic compression stockings in place) Psych Appearance: grossly normal Speech and Movement: speech and movement normal Mood: congruent mood Affect: normal affect Attitude: cooperative Thought Process: circumstantial Thought Content: normal Insight: fair Judgment: fair Objective Last Vital Signs Temp 97.3 F L 02/26/20 12:20 Pulse 95 H 02/26/20 13:19 Resp 12 02/26/20 13:19 BP 128/77 12/09/20 13:19 Pulse Ox 90 L 02/26/20 13:19 Laboratory Results - last 24 hr 02/26/20 07:02 Patient ABO/Rh O Positive Antibody Screen Negative
--- NOTE | 2020-02-26 16:55 | NUR.NOTE ---
Around 1500 pt called out to RN and stated she would like to go home. RN paged Paul Coffey to see pt once done with pts in office. MD Miller to bedside at 1630. MD Miller explained to pt concerns with pt going home too soon due to pain control status and low o2 saturation. Pt understands why she needs to stay and is ok with the plan of care at this time. All questions concerns addressed/answered. Nursing Note:
[2020-02-26] MEDS: HYDROmorphone 2 MG/ML VIAL IVP ×2 (17:57→22:00)
[2020-02-26] MEDS: Normal Saline Flush 10 ML SYR IVP ×3 (17:58→22:08)
[2020-02-26] MEDS: traZODone 100 MG TAB PO (20:06)
[2020-02-26] MEDS: Sertraline 50 MG TAB PO (20:06)
[2020-02-27] MEDS: HYDROcodone 5/Acetaminophen 325 TAB PO ×2 (01:44→07:51)
[2020-02-27 02:00] VITALS: BP 121/66; PULSE 78; RESP 19; TEMP 36.8
[2020-02-27] MEDS: HYDROmorphone 2 MG/ML VIAL IVP (02:17)
[2020-02-27] MEDS: Normal Saline Flush 10 ML SYR IVP (02:18)
[2020-02-27] MEDS: Ketorolac 15 MG/ML VIAL IM (04:43)
[2020-02-27 06:19] VITALS: BP 102/55; PULSE 62; RESP 18; TEMP 37.2
--- NOTE | 2020-02-27 07:12 | W.PM.PROGNOT ---
Date of Service Date of service: 02/27/20 Time of Service: 07:12 Assessment and Plan Assessment and plan (1) S/P laparoscopic assisted vaginal hysterectomy (LAVH): Status: Acute Assessment and plan: POD # 1 s/p LAVH. Doing well. Desires D/C home Subjective Subjective Patient reports: no new complaints, feels better, still having pain, pain is less, tolerating a regular diet, voiding w/o difficulty and flatus Exam Const General: cooperative, healthy appearing and comfortable Eyes General: appearance normal, both eyes and all related structures Resp Effort & Inspection: normal respiratory effort Auscultation: clear to auscultation bilaterally Cardio Palpation: normal PMI Rate: regular rate Rhythm: regular rhythm Heart Sounds: S1 normal and S2 normal GI Inspection: normal to inspection, non-distended and incision Palpation: soft, not firm and no guarding Skin General skin exam: no rashes or lesions noted Extrem General: no clubbing, cyanosis or edema and no calf tenderness bilaterally Objective Last Vital Signs Temp 98.9 F 02/27/20 06:19 Pulse 62 02/27/20 06:19 Resp 18 02/27/20 06:19 BP 102/55 L 02/27/20 06:19 Pulse Ox 94 02/26/20 22:08 Laboratory Results - last 24 hr 02/26/20 07:02 Patient ABO/Rh O Positive Antibody Screen Negative
[2020-02-27 07:13] LABS: Abs Immature Grans 0.03 10^3/uL (0.0-0.06); Absolute Basophil Count 0.01 10^3/uL (0.0-0.2); Absolute Eosinophil Count 0.01 10^3/uL (0.0-0.7); Absolute Lymphocyte Count 1.56 10^3/uL (1.2-3.4); Absolute Monocyte Count 0.87 10^3/uL (0.1-0.8); Absolute Neutrophil Count 9.74 10^3/uL (1.2-6.7); Basophils % 0.1; Eosinophils % 0.1; HCT 37.3 % (36.0-46.0); HGB 12.2 g/dL (11.2-15.7); Immature Grans % 0.2; Lymphocytes % 12.8; MCH 31.1 pg (27.0-33.0); MCHC 32.7 % (32.0-36.0); MCV 95.2 fL (80-95); MPV 10.5 fL (8.0-11.0); Monocytes % 7.1; Neutrophils % 79.7; Nucleated RBC 0 %; Platelet Count 216 10^3/uL (130-400); RBC 3.92 10^6/uL (3.93-5.22); RDW 13.1 % (11.7-14.6); WBC 12.22 10^3/uL (4.4-10.8)
--- NOTE | 2020-02-27 07:32 | DSE_ITS ---
Date of service: 02/27/20 Time of Service: 07:32 DS: Diagnosis Discharge Diagnosis (1) S/P laparoscopic assisted vaginal hysterectomy (LAVH): Status: Acute Discharge Plan Disposition Patient Disposition: HOME Condition: Stable Discharge Details Reason For Visit: S/P LAVH Admit Date/Time: 02/26/20 06:47 Admit Provider: Iris Miller Attending Provider: Iris Miller Primary Care Provider: [facility] Course Hospital Course: Patient had an uncomplicated LAVH. Routine post operative care. D/C home with regular diet, oral pain medication and follow up in 2 weeks Home Meds and New Rx's Prescriptions: New ibuprofen 800 mg tablet 800 mg PO Q8H PRN (Reason: pain) Qty: 30 RF: 1 oxycodone-acetaminophen [Percocet] 5-325 mg tablet 1 tab PO Q8H PRN (Reason: pain) Qty: 14 RF: 0 docusate sodium [Colace] 100 mg capsule 100 mg PO BID Qty: 30 RF: 0 Continued acetaminophen [Tylenol] 325 mg Capsule 650 mg PO PRN PRNRF: 0 trazodone 100 mg tablet 100 mg PO HS RF: 0 sertraline 50 mg tablet 50 mg PO HS RF: 0 promethazine 25 mg tablet 25 mg PO TID PRN (Reason: nausea and vomiting) Qty: 10 RF: 0 Discontinued norethindrone acetate [Aygestin] 5 mg tablet 5 mg PO BID Qty: 30 RF: 0 Discharge Instructions Additional Instructions: Pelvic rest for 6 weeks. No heavy lifting for 6 weeks. Follow up in 2 weeks Stand Alone Forms: [facility] Post Gynecology Surgery Activity:: Pelvic rest. Equipment/Supplies:: No Equipment Needed Diet:: As Tolerated Discharge Orders Discharge Orders: Discharge Order (Routine); Ordered 02/27/20 Ordered By: Iris Miller DS: Summary Summary Time spent discussing smoking cessation with patient: 3 to 10 minutes Status at Discharge Functional status at discharge: independent ambulation Overall status at discharge: patient is progressing back to baseline Mental Status: mental status grossly normal Speech and Movement: speech and movement normal Mood: congruent mood Affect: normal affect Time Spent with Patient providing and/or coordinating discharge services: Less than 30 minutes Exam Narrative Exam Narrative: See physical exam done 02/27/2020. Doing well Psych Mental Status: mental status grossly normal Speech and Movement: speech and movement normal Mood: congruent mood Affect: normal affect DS: Data Vitals/I&O Vitals and I&O: Vital Signs Temperature 98.9 F 02/27/20 06:19 Temperature Source Tympanic 02/27/20 06:19 Pulse 62 02/27/20 06:19 Pulse Rhythm Regular 02/27/20 02:00 Respiratory Rate 18 02/27/20 06:19 Respiratory Effort 02/27/20 02:00 Respiratory Depth Normal 02/27/20 02:00 Respiratory Pattern Normal 02/27/20 02:00 Blood Pressure 102/55 L 02/27/20 06:19 Pulse Oximetry 94 02/26/20 22:08 Respiratory End-tidal CO2 37 02/26/20 12:20 Oxygen Delivery Method Room Air 02/27/20 06:19 Oxygen Flow Rate 0 02/27/20 06:19 Pain Level 3 02/27/20 06:19 Comment 02/26/20 18:41 Intake & Output 02/26/20 02/26/20 02/27/20 11:59 23:59 11:59 Intake Total 800 / 2008.333 1208.333 / 2007.333 Output Total 200 / 800 600 / 800 250 / 250 Balance 600 / 1208.333 608.333 / 1208.333 -250 / -250 Weight 180 lb 8.937 oz Intake: IV 800 / 2007.333 1208.333 / 2007.333 Output: Urine 100 / 700 600 / 700 250 / 250 Estimated Blood Loss 100 / 100 Other: Urine Color Yellow Yellow Urine Appearance Clear Clear Clear Urine Odor None Emesis Description None None Data Completed and Pending Labs on day of discharge: Labs from last 24 hours 02/27/20 02/26/20 06:44 07:02 WBC 12.22 H RBC 3.92 L Hgb 12.2 Hct 37.3 MCV 95.2 H MCH 31.1 MCHC 32.7 RDW 13.1 Plt Count 216 MPV 10.5 Immature Gran % 0.2 Neutrophils % 79.7 Lymphocytes % 12.8 Monocytes % 7.1 Eosinophils % 0.1 Basophils % 0.1 Nucleated RBC % 0 Absolute Neutrophils 9.74 H Absolute Lymphocytes 1.56 Absolute Monocytes 0.87 H Absolute Eosinophils 0.01 Absolute Basophils 0.01 Patient ABO/Rh O Positive Antibody Screen Negative [facility] Medical History Abnormal uterine bleeding Anemia Anxiety BMI 32.0-32.9,adult Depression 2013 Seen in ED with SI. Referred to counselor. Endometriosis of pelvis (~2009) Stage1. Hepatic steatosis Hepatomegaly History of renal calculi Kidney stones Lymphedema lower left leg, pt. states its permanent Pain in pelvis Patellofemoral dysfunction of left knee Right upper quadrant abdominal pain (12/15/16) RLQ abdominal pain Vitamin D deficiency Vulvodynia Surgical History Cholecystectomy (12/28/16) Diagnostic Laproscopy (03/03/10) Stage I endometriosis EGD - MAC Extracorporeal shock wave lithotripsy Hx of hand surgery L hand, pt. reports nerves were fixed S/P laparoscopic assisted vaginal hysterectomy (LAVH) Status post endovenous radiofrequency ablation (RFA) of saphenous vein for venous insufficiency 09/06/2018 wisdom teeth extraction Family History Mother Diabetes Heart disease Hyperlipidemia Father Colon cancer Heart disease Hyperlipidemia Sister Hyperlipidemia Grandfather Diabetes Grandfather Diabetes Hyperlipidemia Asthma Grandmother Diabetes Personal history of malignant neoplasm Breast Heart disease Hyperlipidemia Grandmother No problems noted. Social History Smoking/Tobacco Use Status: Current every day Tobacco Type: cigarettes Smoking risk assessment performed?: Yes Alcohol Intake: never Drug use: Rarely Substance use type: marijuana Details: An edible like once a year, pt. states she doesnt remember last time Do you feel safe at home: Yes Do you feel safe in your relationship?: Yes
[2020-02-27] MEDS: Docusate Sodium 100 MG CAP PO (07:52)
[2020-02-27 08:00] VITALS: BP 131/70; PULSE 60; RESP 14; TEMP 37; O2SAT 95
== END 2020-02-27 09:10 | disposition home or self-care (01) | DRG 983 ==
LOC: PDS 06:48 → OBS 13:09
PROVIDERS: Admitting Provider Obstetrics & Gynecology; PCP Nurse Practitioner; Visit Provider Obstetrics & Gynecology
PROC: 0UT9FZZ Resection of Uterus, Via Natural or Artificial Opening With Percutaneous Endoscopic Assistance (ICD-10-PCS; CPT 58552; principal; 2020-02-26 07:30)
DX: R10.2 Pelvic and perineal pain (principal); N93.8 Other specified abnormal uterine and vaginal bleeding; N94.10 Unspecified dyspareunia; N80.0 Endometriosis of uterus; N87.9 Dysplasia of cervix uteri, unspecified
CPT/HCPCS: 58552; 36415; 81025; 86850; 86900; 86901; 99232; 99238; 85025; 88307; J0690; J1100; J1885; J2001; J2250; J2405; J2704; J3010

== ENCOUNTER 2020-05-02 21:14 | Emergency (ER) | payer MEDICAID, SELFPAY ==
[2020-05-02 21:18] VITALS: BP 155/80; PULSE 76; RESP 18; TEMP 37.1; O2SAT 99
[2020-05-02 21:29] LABS: Bilirubin Negative (Negative); Blood Large (Negative); Clarity Sl Cloudy (Clear); Glucose Negative (Negative); Ketones Negative (Negative); Leukocyte Esterase Negative (Negative); Nitrite Negative (Negative); Specific Gravity >= 1.030 (1.005-1.025); Urobilinogen 0.2 EU/dL (Up TO 0.2); pH 6.5 (5-8)
--- NOTE | 2020-05-02 21:30 | DI.CT_ITS ---
EXAM: CT RENAL COLIC WO CLINICAL HISTORY: right lower back pain and hematuria. TECHNIQUE: Imaging Protocol: Axial computed tomography images with coronal and sagittal reformatted images were created and reviewed CONTRAST MATERIAL: Intravenous: none Oral: None COMPARISON: CT CT ABDOMEN PELVIS W from 01/24/2020 FINDINGS: VISUALIZED LUNG BASES: No nodules nor pleural effusions evident. ABDOMEN: There is no ascites in the upper abdomen. LIVER: Hepatic steatosis again noted. No discrete focal hepatic lesions evident. GALLBLADDER/BILIARY: The gallbladder is again noted be surgically absent. CBD diameter is slightly p rominent but unchanged and probably related to post cholecystectomy status. There are no calculi see n in the lower CBD nor evidence of pancreatic head mass. PANCREAS: No evidence of pancreatic mass nor dilatation of the pancreatic duct. SPLEEN: Spleen is not enlarged. No obvious intrasplenic lesions. ADRENALS: There are no significant adrenal masses. KIDNEYS:No cysts evident. No solid renal masses. No calculi nor hydronephrosis. . ABDOMINAL AORTA: Abdominal aorta is not enlarged and there is no dpvkzuzdjynypoc-qgvl-zlnzbi adenopat hy. ABDOMINAL WALL/GI: Small fat containing anterior abdominal wall umbilical hernia is noted, appearing unchanged from January 2020. There is no bowel obstruction. PELVIS: LYMPH NODES: There is no intrapelvic nor inguinal adenopathy. GI: No evidence of appendicitis.No evidence of sigmoid diverticulitis. URINARY BLADDER: No calculi nor obvious masses evident REPRODUCTIVE: There has been interval hysterectomy. The uterus is surgically absent. Ovaries appear age-appropriate. There are no extraovarian adnexal masses. Mild streaking in region of previous costello rgery noted but no evidence of abscess in the pelvis. OSSEOUS: No significant osseous lesions. Sacroiliac joints appear unremarkable. IMPRESSION: 1. Compared to the prior CT scan of January 2020 there has been interval hysterectomy. Mild streaki ng is noted in this region but no formed fluid collection to suggest abscess. Ovaries are identified and appear age-appropriate. There is no significant intrapelvic adenopathy. 2. The gallbladder is again noted be surgically absent. CBD diameter is unchanged from the prior alida dy. 3. Small fat containing umbilical hernia is unchanged from January 2020. No new anterior abdominal wall hernias nor new subcutaneous findings in this patient who has undergone recent hysterectomy. RADIATION DOSE DELIVERED: 749.26mGy.cm Total DLP DATA REPOSITORY: All CT scans at this facility are submitted to the National Radiology Data Registry (NRDR) Dose Index Registry (DIR) with the [employer] ([employer]). RADIATION OPTIMIZATION: All CT scans at this facility use at least one of these dose optimization te chniques: automated exposure control; mA and/or kV adjustment per patient size (includes targeted exa ms where dose is matched to clinical indication); or iterative reconstruction.
--- NOTE | 2020-05-02 21:30 | W.ED.GENAD ---
Discharge Plan Disposition Patient Disposition: HOME Condition: Stable Discharge Details Clinical Impression: Hypokalemia, Urinary tract infection, Lumbar back pain Primary Care Provider: Kathryn Nichole ED Provider: Austin Quan Home Meds and New Rx's Prescriptions: New levofloxacin 750 mg tablet 750 mg PO DAILY Qty: 6 RF: 0 cyclobenzaprine 10 mg tablet 10 mg PO TID PRNQty: 20 RF: 0 Continued docusate sodium [Colace] 100 mg capsule 100 mg PO BID Qty: 30 RF: 0 trazodone 100 mg tablet 100 mg PO HS Qty: 90 RF: 3 sertraline 50 mg tablet 50 mg PO HS Qty: 90 RF: 3 acetaminophen [Tylenol] 325 mg Capsule 650 mg PO PRN PRNRF: 0 promethazine 25 mg tablet 25 mg PO TID PRN (Reason: nausea and vomiting) Qty: 10 RF: 0 ibuprofen 800 mg tablet 800 mg PO Q8H PRN (Reason: pain) Qty: 30 RF: 1 Discharge Instructions Instructions: Hypokalemia (ED) Additional Instructions: Your cat scan did not show evidence of a kidney stone per the virtual radiologist You are being treated for a possible urinary tract infection your blood work showed you have mildly low potassium level follow up with your primary care provider this week for a recheck and also discuss the ct findings showing inflammation of the bowel. You may need to have follow up imaging for this or see a teletypewriter operator if you feel more ill, have high fevers, persistent vomit or severe worsening pain return to the emergency department Medical Decision Making 34 yo female with hx of prior kidney stones years ago comes in with right lower back pain starting today and nausea and bloody urine, and states it feels like prior kidney stones she has had. She denies abdominal pain, vomit, fevers, chills. She has no cva tenderness or abdominal tenderness. She localzies the pain to the right lower back and has no saddle anesthesia on exam or weakness in the legs to suggest cauda equina or sea. Symptoms seem consistent with renal colic and less likely pyelo. Will obtain ct renal colic and monitor. labs show mild hypokalemia and has blood and few bacteria in urine, culture ordered. CT shows no evidence of kidney stones, does have nonspecific stranding in operative bed of the hysterectomy site without abscess. Also shows diffuse infectious or inflammatory gastroenterocolitis but she denies abdominal pain, vomit or diarrhea so doubt infectious etiology. She remains stable. I will place her on levofloxacin given her allergy list limited options to treat a possible pyelo. Will have her follow up with her primary care provider this week and return precautions discussed with patient. Differential Diagnosis Differential Diagnosis: kidney stone, pyelo, spasm Medical Records Medical records reviewed: Yes I reviewed the patient's medical records. Imaging Data Radiologic Study: Attestation: I personally reviewed and interpreted this imaging study as follows: Imaging: CT Scan Radiologist's impression: IMPRESSION: 1. Findings suggestive of a diffuse infectious or inflammatory diffuse gastroenterocolitis. No bowel obstruction or perforation. No abscess. 2. Interval hysterectomy, with mild stranding within the operative bed. No abscess or fluid collection. 3. Moderately enlarged, significant Stacey fatty infiltrated liver. Cholecystectomy. Lab Data Lab results reviewed: Yes I reviewed the patient's lab results. HPI General Mode of arrival: ambulatory. Date/Time Provider Initiated Documentation: 05/02/20 21:16. Limitations to Documentation: no limitations. Information obtained by: patient. History of Present Illness 34 year old F presents to the emergency department with the chief complaint of right lower back pain, described as moderate, and it has been constant. No relieving factors improve symptom(s), No exacerbating factors reported . Patient notes other (nausea, bloody urine). Related Data Home Medications Medication Instructions Recorded Confirmed acetaminophen [Tylenol] 650 mg PO PRN PRN 03/20/19 03/26/20 promethazine 25 mg PO TID PRN #10 tab 01/24/20 03/26/20 ibuprofen 800 mg PO Q8H PRN #30 tab 02/27/20 03/26/20 docusate sodium 100 mg capsule 100 mg PO BID #30 cap 03/05/20 03/26/20 trazodone 100 mg tablet 100 mg PO HS #90 tab 03/26/20 03/26/20 sertraline 50 mg tablet 50 mg PO HS #90 tab 04/15/20 cyclobenzaprine 10 mg PO TID PRN #20 tab 05/02/20 levofloxacin 750 mg PO DAILY #6 tab 05/02/20 Previous Rx's Medication Instructions Recorded promethazine 25 mg PO TID PRN #10 tab 01/24/20 ibuprofen 800 mg PO Q8H PRN #30 tab 02/27/20 docusate sodium 100 mg capsule 100 mg PO BID #30 cap 03/05/20 trazodone 100 mg tablet 100 mg PO HS #90 tab 03/26/20 sertraline 50 mg tablet 50 mg PO HS #90 tab 04/15/20 cyclobenzaprine 10 mg PO TID PRN #20 tab 05/02/20 levofloxacin 750 mg PO DAILY #6 tab 05/02/20 Allergies Allergy/AdvReac Type Severity Reaction Status Date / Time cephalexin [Cephalexin] AdvReac Severe Abdominal Verified 02/26/20 07:06 Cramps sulfamethoxazole AdvReac Severe Nausea and Verified 02/26/20 07:06 [From Bactrim] vomiting trimethoprim [From Bactrim] AdvReac Severe Nausea and Verified 02/26/20 07:06 vomiting vancomycin AdvReac Severe diarrhea, Verified 02/26/20 07:06 redness acetaminophen AdvReac Intermediate Other (See Unverified 02/26/20 07:06 Comment) Cephalosporins AdvReac Intermediate Diarrhea Verified 02/26/20 07:06 codeine phosphate AdvReac Intermediate Vomiting Verified 02/26/20 07:06 [From Tylenol-Codeine #3] ketorolac AdvReac Intermediate Cramping/vo Verified 02/26/20 07:06 mitting oxycodone AdvReac Intermediate Nausea/vomi Verified 02/26/20 07:06 tting tramadol AdvReac Intermediate Diarrhea Verified 02/24/20 11:27 General Stated Complaint: Urinary HALINA: 3 Review of Systems All systems reviewed & are unremarkable except as noted in HPI and below Constitutional Constitutional: Denies chills, Denies fever(s) and Denies weakness Cardiovascular Cardiovascular: Denies chest pain and Denies dyspnea Respiratory Respiratory: Denies cough and Denies dyspnea Gastrointestinal Gastrointestinal: Denies abdominal pain and Denies vomiting Neurologic Neurologic: Denies weakness Psychiatric Psychiatric: Denies depression [facility] Medical History (Updated 05/02/20 @ 22:59 by Austin Quan MD) Abnormal uterine bleeding Anemia Anxiety BMI 32.0-32.9,adult Depression 2012 Seen in ED with SI. Referred to counselor. Endometriosis of pelvis (~2009) Stage1. Hepatic steatosis Hepatomegaly History of renal calculi Kidney stones Lymphedema lower left leg, pt. states its permanent Pain in pelvis Patellofemoral dysfunction of left knee Right upper quadrant abdominal pain (12/15/16) RLQ abdominal pain Vitamin D deficiency Vulvodynia Surgical History Cholecystectomy (12/28/16) Diagnostic Laproscopy (03/03/10) Stage I endometriosis EGD - MAC Extracorporeal shock wave lithotripsy Hx of hand surgery L hand, pt. reports nerves were fixed S/P laparoscopic assisted vaginal hysterectomy (LAVH) Status post endovenous radiofrequency ablation (RFA) of saphenous vein for venous insufficiency 09/06/2018 wisdom teeth extraction Family History Mother Diabetes Heart disease Hyperlipidemia Father Colon cancer Heart disease Hyperlipidemia Sister Hyperlipidemia Grandfather Diabetes Grandfather Diabetes Hyperlipidemia Asthma Grandmother Diabetes Personal history of malignant neoplasm Breast Heart disease Hyperlipidemia Grandmother No problems noted. Social History Smoking/Tobacco Use Status: Current every day Tobacco Type: cigarettes Smoking risk assessment performed?: Yes Alcohol Intake: never Drug use: Rarely Substance use type: marijuana Details: An edible like once a year, pt. states she doesnt remember last time Do you feel safe at home: Yes Do you feel safe in your relationship?: Yes Exam Const General: no acute distress Orientation: alert HENMT Head: normal to inspection Ears: external ears normal General nose exam: external nose normal Mouth: moist mucous membranes Eyes General: appearance normal, both eyes and all related structures Neck Neck: normal visual inspection Resp Effort & Inspection: normal respiratory effort and able to speak in complete sentences Cardio Rate: regular rate GI Palpation: soft and nontender Back/Spine/Pelvis Back: no CVA tenderness Skin General skin exam: no rashes or lesions noted Neuro General: patient alert and patient oriented x3 Extrem General: normal to inspection Psych Mental Status: mental status grossly normal Course Vital Signs Vital signs: Vital Signs Temperature 37.1 C 05/02/20 21:18 Pulse 76 05/02/20 21:18 Respiratory Rate 18 05/02/20 21:18 Blood Pressure 155/80 H 05/02/20 21:18 Pulse Oximetry 99 05/02/20 21:18 Temperature 37.1 C 05/02/20 21:18 Temperature Source Temporal Artery Scan 05/02/20 21:18 Pulse 76 05/02/20 21:18 Respiratory Rate 18 05/02/20 21:18 Respiratory Effort Non-Labored 05/02/20 21:20 Blood Pressure 155/80 H 05/02/20 21:18 Blood Pressure Position Sitting 05/02/20 21:18 Pulse Oximetry 99 05/02/20 21:18 Oxygen Delivery Method Room Air 05/02/20 21:18 Oxygen Flow Rate 0 05/02/20 21:18 Pain Level 10 05/02/20 21:18 Lab/Test Results Lab/Test Results: 05/02/20 21:25 Urine - Clean Catch Urine Culture - Pending
[2020-05-02 21:38] LABS: Bacteria Few HPF (Negative); C & S Indicated? C&S Done As Ordered; Casts Negative LPF (Negative); Crystals Negative HPF (Negative); Epithelial Cells Few HPF (Negative); RBC >50 HPF (0-2); WBC 0-2 HPF (0-5)
[2020-05-02] MEDS: Ondansetron 4 MG/2 ML VIAL IVP (21:38)
[2020-05-02 21:39] LABS: Abs Immature Grans 0.03 10^3/uL (0.0-0.06); Absolute Basophil Count 0.04 10^3/uL (0.0-0.2); Absolute Eosinophil Count 0.07 10^3/uL (0.0-0.7); Absolute Lymphocyte Count 2.75 10^3/uL (1.2-3.4); Absolute Monocyte Count 0.47 10^3/uL (0.1-0.8); Absolute Neutrophil Count 5.83 10^3/uL (1.2-6.7); Basophils % 0.4; Eosinophils % 0.8; HCT 43.5 % (36.0-46.0); HGB 14.7 g/dL (11.2-15.7); Immature Grans % 0.3; Lymphocytes % 29.9; MCH 31.6 pg (27.0-33.0); MCHC 33.8 % (32.0-36.0); MCV 93.5 fL (80-95); MPV 10.2 fL (8.0-11.0); Monocytes % 5.1; Neutrophils % 63.5; Nucleated RBC 0 %; Platelet Count 210 10^3/uL (130-400); RBC 4.65 10^6/uL (3.93-5.22); RDW 13.4 % (11.7-14.6); RDW-SD 45.8 fL; WBC 9.19 10^3/uL (4.4-10.8)
[2020-05-02 21:39] LABS: Mucus Heavy (Negative)
[2020-05-02] MEDS: HYDROmorphone 2 MG/ML VIAL 1 MG IVP ×2 (21:44→22:21)
[2020-05-02 22:05] LABS: ALT 26 U/L (14-59); AST 12 U/L (15-37); Albumin 3.8 g/dL (3.4-5.0); Alkaline Phosphatase 87 U/L (46-116); Anion Gap 11.6 mmol/L (3-11); BUN 6 mg/dL (7-18); Bilirubin, Total 0.4 mg/dL (0.2-1.0); CO2 25.4 mmol/L (21.0-32.0); CREATININE 0.8 mg/dL (0.55-1.02); Calcium 8.5 mg/dL (8.5-10.1); Chloride 104 mmol/L (98-107); Glucose 104 mg/dL (74-106); Potassium 3.1 mmol/L (3.5-5.1); Sodium 141 mmol/L (136-145); Total Protein 7.3 g/dL (6.4-8.2)
[2020-05-02] MEDS: Potassium Chloride 20 MEQ TABCR 40 MEQ PO (22:18)
[2020-05-02 22:24] VITALS: BP 122/77; PULSE 57; RESP 16; O2SAT 96
[2020-05-02] MEDS: Ibuprofen 600 MG TAB PO (22:25)
--- NOTE | 2020-05-02 22:42 | DI.VRAD_ITS ---
PROCEDURE INFORMATION: Exam: CT Abdomen And Pelvis Without Contrast Exam date and time: 05/02/2020 9:37 PM Age: 34 years old Clinical indication: Abdominal pain; Localized; Patient HX: Right lower back pain and hematuria TECHNIQUE: Imaging protocol: Computed tomography of the abdomen and pelvis without contrast. COMPARISON: CT RENAL COLIC WO 07/22/2019 5:25 PM FINDINGS: Lungs: The imaged lung bases are clear. Pleural spaces: No pleural effusion. Mediastinal space: Minimal wall thickening within the lower esophagus. Liver: The liver is moderately enlarged and significantly fatty infiltrated. Gallbladder and bile ducts: The gallbladder is surgically absent. No bile duct dilatation. Pancreas: The pancreas is normal appearance. Spleen: The spleen is normal in size. Adrenal glands: The bilateral adrenal glands are normal appearance. Kidneys and ureters: The bilateral kidneys are normal appearance. No renal or intraureteral calculi. No hydroureteronephrosis. Stomach and bowel: Mild wall thickening within the gastric folds and gastric antrum. The stomach, small bowel and colon are fluid-filled and nondilated with a few areas of wall thickening scattered throughout the small bowel and colon. Appendix: The appendix is normal appearance. Intraperitoneal space: Unremarkable. No free air. No significant fluid collection. Vasculature: The abdominal aorta is normal in caliber without aneurysm. Lymph nodes: Unremarkable. No enlarged lymph nodes. Urinary bladder: The urinary bladder is nondistended but demonstrates mild circumferential wall thickening. Reproductive: Interval postoperative changes of a hysterectomy. Mild stranding is seen along the vaginal vault and bilateral ovaries. Multiple follicles are seen within the ovaries. No drainable abscess or fluid collection. Bones/joints: Transitional lumbosacral anatomy is seen, with partial lumbarization of the S1 segment. No acute fracture. Soft tissues: Unremarkable. IMPRESSION: 1. Findings suggestive of a diffuse infectious or inflammatory diffuse gastroenterocolitis. No bowel obstruction or perforation. No abscess. 2. Interval hysterectomy, with mild stranding within the operative bed. No abscess or fluid collection. 3. Moderately enlarged, significant Stacey fatty infiltrated liver. Cholecystectomy. Dictated and Authenticated by: Marilee Pereyra MD. Ordering:XOCHITL Avila MD
[2020-05-02] MEDS: levoFLOXacin 500 MG, levoFLOXacin 250 MG 750 MG PO (22:57)
[2020-05-02] MEDS: Cyclobenzaprine 10 MG TAB, 3 TABS/BTL PO (22:58)
--- NOTE | 2020-05-02 22:59 | NUR.NOTE ---
Nursing Note: patient referal sent to pcp to follow up this week for uti and back pain/gastroenterocolitis 05/02/20
[2020-05-02 23:06] VITALS: BP 123/73; PULSE 61; RESP 16; O2SAT 96
== END 2020-05-02 23:15 | disposition home or self-care (01) ==
PROVIDERS: Emergency Provider Emergency Medicine; PCP Nurse Practitioner
DX: E87.6 Hypokalemia (principal); N39.0 Urinary tract infection, site not specified; M54.5 Low back pain; R11.0 Nausea
CPT/HCPCS: 80053; 96374; 96375; 96376; 99284; 74176; 81003; 81015; 85025; 87086; J2405

== ENCOUNTER 2020-05-05 04:02 | Emergency (ER) | payer MEDICAID, SELFPAY ==
[2020-05-05 04:07] VITALS: BP 135/84; PULSE 97; RESP 15; TEMP 36.5; O2SAT 99
--- NOTE | 2020-05-05 04:15 | DI.CT_ITS ---
EXAM: CT ABDOMEN PELVIS W INDICATION: right lower abdominal pain. COMPARISON: CT CT RENAL COLIC WO from 05/02/2020 TECHNIQUE: FINDINGS: CT examination of the abdomen and pelvis was performed with a bolus infusion of 100 cc of Omnipaque 3 50. Images obtained through the lung bases are unremarkable. The liver is unremarkable in appearance. There is been a prior cholecystectomy. There is no biliary dilatation. Pancreas appears normal. Spleen is unremarkable in appearance. Adrenals appear normal. The kidneys are unremarkable with no evidence of hydronephrosis, nephrolithiasis, or renal mass.. Ur inary bladder is essentially empty. Abdominal aorta is of normal diameter and no major vascular abnormality is seen. No abdominal wall hernia. No abdominal or pelvic adenopathy. Note is made of a prior hysterectomy. There is a probable small corpus luteum on the right. Appendix is normal. No evidence of diverticulitis or bowel obstruction. IMPRESSION: Negative CT examination of the abdomen and pelvis. RADIATION DOSE DELIVERED: 864.9mGy.cm Total DLP 864.9mGy.cm Total DLP
--- NOTE | 2020-05-05 04:16 | ED.GENADUL_ITS ---
Discharge Plan Disposition Patient Disposition: HOME Condition: Stable Discharge Details Clinical Impression: RLQ abdominal pain Primary Care Provider: Kathryn Nichole ED Provider: Austin Quan Home Meds and New Rx's Prescriptions: New hydrocodone-acetaminophen [Vicodin HP] 10-300 mg tablet 1 tab PO Q8H PRN (Reason: pain) Qty: 9 RF: 0 Continued trazodone 100 mg tablet 100 mg PO HS Qty: 90 RF: 3 sertraline 50 mg tablet 50 mg PO HS Qty: 90 RF: 3 acetaminophen [Tylenol] 325 mg Capsule 650 mg PO PRN PRNRF: 0 ibuprofen 800 mg tablet 800 mg PO Q8H PRN (Reason: pain) Qty: 30 RF: 1 levofloxacin 750 mg tablet 750 mg PO DAILY Qty: 6 RF: 0 cyclobenzaprine 10 mg tablet 10 mg PO TID PRNQty: 20 RF: 0 Discharge Instructions Additional Instructions: your cat scan showed inflammation of the bladder and possible small ovarian cyst follow up with your primary care provider within a week if you have significant increase in pain, high fevers or feel more ill return to the emergency department Medical Decision Making 34 yo female with hx of anxiety, prior hysteecetomy and cholecystectomy, smoker, who comes in with right lower abdominal pain. She was seen her on 05/02 for right flank pain and had labs showing mildly low potassium and also ua suggestive of possible uti so was started on levofloxacin to cover for pyelo as well. She had a renal colic ct which did not show any acute findings. Since then she continues to have the right lower lateral lumbar back pain but now has right lower abdominal pain and nausea. Denies vomit, fevers, chills. Denies dysuria but still notes tinged red urine. She has no cva tenderness, no upper abdominal tenderness or distention, is tender without guarding in the right lower abdomen. Given this new pain concern for possible appendicitis, less likely kidney stone given lack of stones seen two days ago. Will obtain lab work and ct with IV contrast to further evaluate. No diffuse or severe pain out of proportion to exam so doubt mesenteric ischemia. patient's labs unremarkable other than mild hypokalemia and continues to have hematuria. CT shows inflammation of the bladder and also possible small 15mm right ovarian cyst. Only has mild right lower abdominal tenderness and unlikely torsion but recommended staying to have u/s done when they get here this morning but she declined as she is feeling better and she has capacity to make her own decisions. Given the possible cyst causing the pain andher multiple allergies will provide short course of vicodin as she states this has helped her in the past. Advised to f/u with her pcp and return precautions given on chart review does have loin pain hematuria syndrome listed as problem which could be the cause of her symptoms, advised to f/u with pcp for continued management and possible urology referral Differential Diagnosis Differential Diagnosis: appendicitis, colitis, kidney stone, pyelo Medical Records Medical records reviewed: Yes I reviewed the patient's medical records. Imaging Data Radiologic Study: Attestation: I personally reviewed and interpreted this imaging study as follows: Imaging: CT Scan Radiologist's impression: IMPRESSION: Trace free pelvic fluid and probable right-sided ovarian corpus luteal cyst. Equivocal cystitis Lab Data Lab results reviewed: Yes I reviewed the patient's lab results. HPI General Mode of arrival: ambulatory . Date/Time Provider Initiated Documentation: 05/05/20 04:03 . Limitations to Documentation: no limitations . Information obtained by: patient . History of Present Illness 34 year old F presents to the emergency department with the chief complaint of right sided abdominal pain, described as moderate, Patient started experiencing this day(s) (1) and it has been constant. No relieving factors improve symptom(s), No exacerbating factors reported . Patient notes no other symptoms.. Related Data Home Medications Medication Instructions Recorded Confirmed acetaminophen [Tylenol] 650 mg PO PRN PRN 03/20/19 05/05/20 ibuprofen 800 mg PO Q8H PRN #30 tab 02/27/20 05/05/20 trazodone 100 mg tablet 100 mg PO HS #90 tab 03/26/20 05/05/20 sertraline 50 mg tablet 50 mg PO HS #90 tab 04/15/20 05/05/20 cyclobenzaprine 10 mg PO TID PRN #20 tab 05/02/20 05/05/20 levofloxacin 750 mg PO DAILY #6 tab 05/02/20 05/05/20 hydrocodone-acetaminophen [Vicodin 1 tab PO Q8H PRN #9 tab 05/05/20 HP] Previous Rx's Medication Instructions Recorded ibuprofen 800 mg PO Q8H PRN #30 tab 02/27/20 trazodone 100 mg tablet 100 mg PO HS #90 tab 03/26/20 sertraline 50 mg tablet 50 mg PO HS #90 tab 04/15/20 cyclobenzaprine 10 mg PO TID PRN #20 tab 05/02/20 levofloxacin 750 mg PO DAILY #6 tab 05/02/20 hydrocodone-acetaminophen [Vicodin 1 tab PO Q8H PRN #9 tab 05/05/20 HP] Allergies Allergy/AdvReac Type Severity Reaction Status Date / Time cephalexin [Cephalexin] AdvReac Severe Abdominal Verified 05/05/20 04:11 Cramps sulfamethoxazole AdvReac Severe Nausea and Verified 05/05/20 04:11 [From Bactrim] vomiting trimethoprim [From Bactrim] AdvReac Severe Nausea and Verified 05/05/20 04:11 vomiting vancomycin AdvReac Severe diarrhea, Verified 05/05/20 04:11 redness acetaminophen AdvReac Intermediate Other (See Unverified 05/05/20 04:11 Comment) Cephalosporins AdvReac Intermediate Diarrhea Verified 05/05/20 04:11 codeine phosphate AdvReac Intermediate Vomiting Verified 05/05/20 04:11 [From Tylenol-Codeine #3] ketorolac AdvReac Intermediate Cramping/vo Verified 05/05/20 04:11 mitting oxycodone AdvReac Intermediate Nausea/vomi Verified 05/05/20 04:11 tting tramadol AdvReac Intermediate Diarrhea Verified 05/05/20 04:11 General Stated Complaint: FlankPain HALINA: 3 Review of Systems All systems reviewed & are unremarkable except as noted in HPI and below Constitutional Constitutional: Denies chills, Denies fever(s) and Denies weakness Cardiovascular Cardiovascular: Denies chest pain and Denies dyspnea Respiratory Respiratory: Denies cough and Denies dyspnea Gastrointestinal Gastrointestinal: Denies vomiting Genitourinary Genitourinary: Denies dysuria Musculoskeletal Musculoskeletal: Denies joint swelling Integumentary/Breasts Skin/Breast: Denies rash Neurologic Neurologic: Denies weakness [facility] Medical History (Updated 05/05/20 @ 05:23 by Austin Quan MD) Abnormal uterine bleeding Anemia Anxiety BMI 32.0-32.9,adult Depression 2012 Seen in ED with SI. Referred to counselor. Endometriosis of pelvis (~2009) Stage1. Hepatic steatosis Hepatomegaly History of renal calculi Kidney stones Lymphedema lower left leg, pt. states its permanent Pain in pelvis Patellofemoral dysfunction of left knee Right upper quadrant abdominal pain (12/15/16) RLQ abdominal pain Vitamin D deficiency Vulvodynia Surgical History Cholecystectomy (12/28/16) Diagnostic Laproscopy (03/03/10) Stage I endometriosis EGD - MAC Extracorporeal shock wave lithotripsy Hx of hand surgery L hand, pt. reports nerves were fixed S/P laparoscopic assisted vaginal hysterectomy (LAVH) Status post endovenous radiofrequency ablation (RFA) of saphenous vein for venous insufficiency 09/06/2018 wisdom teeth extraction Family History Mother Diabetes Heart disease Hyperlipidemia Father Colon cancer Heart disease Hyperlipidemia Sister Hyperlipidemia Grandfather Diabetes Grandfather Diabetes Hyperlipidemia Asthma Grandmother Diabetes Personal history of malignant neoplasm Breast Heart disease Hyperlipidemia Grandmother No problems noted. Social History Smoking/Tobacco Use Status: Current every day Tobacco Type: cigarettes Smoking risk assessment performed?: Yes Alcohol Intake: never Drug use: Rarely Substance use type: marijuana Details: An edible like once a year, pt. states she doesnt remember last time Do you feel safe at home: Yes Do you feel safe in your relationship?: Yes Exam Const General: no acute distress Orientation: alert HENRI Head: normal to inspection Ears: external ears normal General nose exam: external nose normal Mouth: moist mucous membranes Eyes General: appearance normal, both eyes and all related structures Neck Neck: normal visual inspection Resp Effort & Inspection: normal respiratory effort and able to speak in complete sentences Cardio Rate: regular rate GI Palpation: soft, no guarding and tender Skin General skin exam: no rashes or lesions noted Neuro General: patient alert and patient oriented x3 Extrem General: normal to inspection Psych Mental Status: mental status grossly normal Course Vital Signs Vital signs: Vital Signs Temperature 36.5 C 05/05/20 04:07 Pulse 97 H 05/05/20 04:07 Respiratory Rate 15 05/05/20 04:07 Blood Pressure 135/84 05/05/20 04:07 Pulse Oximetry 99 05/05/20 04:07 Temperature 36.5 C 05/05/20 04:07 Temperature Source Tympanic 05/05/20 04:07 Pulse 97 H 05/05/20 04:07 Respiratory Rate 15 05/05/20 04:07 Respiratory Effort Non-Labored 05/05/20 04:07 Blood Pressure 135/84 05/05/20 04:07 Blood Pressure Position Sitting 05/05/20 04:07 Pulse Oximetry 99 05/05/20 04:07 Oxygen Delivery Method Room Air 05/05/20 04:07 Oxygen Flow Rate 0 05/05/20 04:07
[2020-05-05 04:27] LABS: Abs Immature Grans 0.03 10^3/uL (0.0-0.06); Absolute Basophil Count 0.04 10^3/uL (0.0-0.2); Absolute Eosinophil Count 0.14 10^3/uL (0.0-0.7); Absolute Lymphocyte Count 2.88 10^3/uL (1.2-3.4); Absolute Neutrophil Count 6.53 10^3/uL (1.2-6.7); Basophils % 0.4; Eosinophils % 1.4; HCT 43.5 % (36.0-46.0); HGB 14.5 g/dL (11.2-15.7); Immature Grans % 0.3; Lactate 1.8 mmol/L (0.6-1.4); Lymphocytes % 28.2; MCH 31.5 pg (27.0-33.0); MCHC 33.3 % (32.0-36.0); MCV 94.4 fL (80-95); MPV 10.5 fL (8.0-11.0); Monocytes % 5.9; Neutrophils % 63.8; Nucleated RBC 0 %; Platelet Count 200 10^3/uL (130-400); RBC 4.61 10^6/uL (3.93-5.22); RDW 13.3 % (11.7-14.6); RDW-SD 46.2 fL; WBC 10.22 10^3/uL (4.4-10.8)
[2020-05-05] MEDS: HYDROmorphone 2 MG/ML VIAL 1 MG IVP (04:28)
[2020-05-05] MEDS: Normal Saline 1,000 ML 1000 ML IV (04:29)
[2020-05-05] MEDS: Ondansetron 4 MG/2 ML VIAL IVP (04:29)
[2020-05-05 04:32] LABS: Bilirubin Negative (Negative); Blood Large (Negative); Clarity Sl Cloudy (Clear); Glucose Negative (Negative); Ketones Negative (Negative); Leukocyte Esterase Negative (Negative); Nitrite Negative (Negative); Specific Gravity >= 1.030 (1.005-1.025); Urobilinogen 0.2 EU/dL (Up TO 0.2)
[2020-05-05 04:37] LABS: Bacteria Few HPF (Negative); C & S Indicated? No; Casts Negative LPF (Negative); Crystals Negative HPF (Negative); Epithelial Cells Few HPF (Negative); Mucus Trace (Negative); RBC >50 HPF (0-2); WBC Negative HPF (0-5)
[2020-05-05 04:43] LABS: ALT 20 U/L (14-59); AST 5 U/L (15-37); Albumin 3.8 g/dL (3.4-5.0); Alkaline Phosphatase 107 U/L (46-116); Anion Gap 9.6 mmol/L (3-11); BUN 7 mg/dL (7-18); Bilirubin, Total 0.2 mg/dL (0.2-1.0); CO2 28.4 mmol/L (21.0-32.0); CREATININE 0.7 mg/dL (0.55-1.02); Calcium 8.8 mg/dL (8.5-10.1); Chloride 105 mmol/L (98-107); Glucose 115 mg/dL (74-106); Lipase 82 U/L (73-393); Magnesium 2.1 mg/dL (1.8-2.4); Potassium 3.2 mmol/L (3.5-5.1); Sodium 143 mmol/L (136-145); Total Protein 7.2 g/dL (6.4-8.2)
[2020-05-05 04:44] LABS: Bilirubin, Direct < 0.05 mg/dL (0.00-0.20)
[2020-05-05] MEDS: Normal Saline - Diluent 50 ML VIAL IV (04:53)
[2020-05-05] MEDS: Omnipaque 350 MG/ML 100 ML BTL IJ (04:53)
[2020-05-05] MEDS: Normal Saline Flush 10 ML SYR IVP (04:54)
--- NOTE | 2020-05-05 05:10 | DI.VRAD_ITS ---
PROCEDURE INFORMATION: Exam: CT Abdomen And Pelvis With Contrast Exam date and time: 05/05/2020 4:16 AM Age: 34 years old Clinical indication: Abdominal pain and other: R flank; Localized; Right lower quadrant (rlq); Prior surgery; Surgery date: 1-6 months; Surgery type: Hysterectomy in February, cholecystectomy and laparoscopic surgery for endometriosis prior; Patient HX: Rlq pain and R flank pain, blood in urine TECHNIQUE: Imaging protocol: Computed tomography of the abdomen and pelvis with contrast. Radiation optimization: All CT scans at this facility use at least one of these dose optimization techniques: automated exposure control; mA and/or kV adjustment per patient size (includes targeted exams where dose is matched to clinical indication); or iterative reconstruction. Contrast material: OMNIPAQUE 350; Contrast volume: 100 ml; Contrast route: INTRAVENOUS (IV); COMPARISON: CT RENAL COLIC WO 05/02/2020 9:44 PM FINDINGS: Liver: Normal. No mass. Gallbladder and bile ducts: The patient is status post cholecystectomy. Pancreas: Normal. No ductal dilation. Spleen: Normal. No splenomegaly. Adrenal glands: Normal. No mass. Kidneys and ureters: Normal. No hydronephrosis. Stomach and bowel: Unremarkable. No obstruction. No mucosal thickening. Appendix: No evidence of appendicitis. Intraperitoneal space: Trace free fluid is present which is nonspecific but may reflect physiologic fluid or rupture of an ovarian cyst or follicle. Vasculature: Unremarkable. No abdominal aortic aneurysm. Lymph nodes: Unremarkable. No enlarged lymph nodes. Urinary bladder: Thick-walled suspicious for cystitis in the correct clinical setting Reproductive: Probable involuting right-sided ovarian corpus luteal cyst measures 15 mm The patient is status post hysterectomy. Bones/joints: Unremarkable. No acute fracture. Soft tissues: Unremarkable. IMPRESSION: Trace free pelvic fluid and probable right-sided ovarian corpus luteal cyst. Equivocal cystitis Dictated and Authenticated by: Hair Garcia MD. Ordering:XOCHITL Avila MD
[2020-05-05] MEDS: HYDROcodone 10/Acetaminophen 325 TAB PO (05:36)
--- NOTE | 2020-05-05 11:16 | NUR.NOTE ---
Nursing Note: Philipp called asking to substitute the for , because no pharmacy in area has that strength. Per Dr. Osborn yes they can. Kailee Herr
== END 2020-05-05 05:45 | disposition home or self-care (01) ==
PROVIDERS: Emergency Provider Emergency Medicine; PCP Nurse Practitioner
DX: R10.31 Right lower quadrant pain (principal); R31.9 Hematuria, unspecified; R93.5 Abnormal findings on diagnostic imaging of other abdominal regions, including retroperitoneum
CPT/HCPCS: 80053; 83690; 96361; 96374; 96375; 99285; 74177; 81003; 81015; 82248; 83605; 83735; 85025; 99284; J2405; J3490

== ENCOUNTER 2020-05-08 17:44 | Emergency (ER) | payer MEDICAID, SELFPAY ==
[2020-05-08 17:51] VITALS: BP 148/87; PULSE 95; RESP 18; TEMP 37.2; O2SAT 100
--- NOTE | 2020-05-08 18:15 | DI.CT_ITS ---
EXAM: CT ABDOMEN PELVIS W CLINICAL HISTORY: rlq abd pain. TECHNIQUE: Imaging Protocol: Axial computed tomography images with coronal and sagittal reformatted images were created and reviewed CONTRAST MATERIAL: Intravenous: Omnipaque 100cc Oral: None COMPARISON: CT CT ABDOMEN PELVIS W from 05/05/[address] ABDOMEN PELVIS W from 05/05/2020 FINDINGS: VISUALIZED LUNG BASES: Mild increased markings in the inferior lingular segment of the left lung base . Only partly included in the field of view. There are no pleural effusions.. ABDOMEN: There is no ascites. LIVER: There are no obvious focal hepatic lesions evident. Hepatic steatosis noted. GALLBLADDER/BILIARY: The gallbladder is again noted to be surgically absent. CBD diameter is slightl y prominent, unchanged, and consistent with post cholecystectomy status. There are no calculi nor ob vious masses in the lower CBD nor in the pancreatic head. PANCREAS: No evidence of pancreatic mass nor dilatation of the pancreatic duct. SPLEEN: Spleen is not enlarged. No obvious intrasplenic lesions. Splenic and portal veins are paten t. ADRENALS: There are no significant adrenal masses. KIDNEYS:No cysts evident. No solid renal masses. No calculi nor hydronephrosis.. ABDOMINAL AORTA: Abdominal aorta is not enlarged. LYMPH NODES:There is no retroperitineal nor paraaortic adenopathy. ABDOMINAL WALL/GI: No evidence of significant anterior abdominal wall hernia. No bowel obstruction. PELVIS: GI: No evidence of appendicitis.No evidence of sigmoid diverticulitis. LYMPH NODES: There is no intrapelvic nor inguinal adenopathy. REPRODUCTIVE: The uterus is again noted be surgically absent. Left ovary appears unremarkable. On t he right side there is again noted some fluid around a peripherally enhancing structure which is prob ably a ruptured/involuting right ovarian cyst. This is immediately adjacent to the right side of the sigmoid. There is a small amount of free fluid below this level in the dependent aspect of the pelv is. URINARY BLADDER: No calculi nor obvious masses evident OSSEOUS: No significant osseous lesions. IMPRESSION: 1. Compared to the prior CT scan performed three days ago there is again noted evidence of prior chol ecystectomy and hysterectomy. 2. In the right adnexal region there are findings which are probably consistent with a ruptured ovari an cyst. Correlation with hysterectomy operative report recommended to ensure that both ovaries are still in the body. Other consideration would be for diverticulitis but this would be less likely in this relatively young age group. RADIATION DOSE DELIVERED: 902.69mGy.cm Total DLP DATA REPOSITORY: All CT scans at this facility are submitted to the National Radiology Data Registry (NRDR) Dose Index Registry (DIR) with the [employer] ([employer]). RADIATION OPTIMIZATION: All CT scans at this facility use at least one of these dose optimization te chniques: automated exposure control; mA and/or kV adjustment per patient size (includes targeted exa ms where dose is matched to clinical indication); or iterative reconstruction.
--- NOTE | 2020-05-08 18:32 | ED.GENADUL_ITS ---
Discharge Plan Disposition Patient Disposition: HOME Condition: Stable Discharge Details Clinical Impression: Abdominal pain, right lower quadrant, Ovarian cyst, right Primary Care Provider: Kathryn Nichole ED Provider: Castro Andre Home Meds and New Rx's Prescriptions: Continued trazodone 100 mg tablet 100 mg PO HS Qty: 90 RF: 3 sertraline 50 mg tablet 50 mg PO HS Qty: 90 RF: 3 acetaminophen [Tylenol] 325 mg Capsule 650 mg PO PRN PRNRF: 0 ibuprofen 800 mg tablet 800 mg PO Q8H PRN (Reason: pain) Qty: 30 RF: 1 levofloxacin 750 mg tablet 750 mg PO DAILY Qty: 6 RF: 0 cyclobenzaprine 10 mg tablet 10 mg PO TID PRNQty: 20 RF: 0 Discharge Instructions Instructions: Ovarian Cyst (ED), Abdominal Pain (ED) Additional Instructions: Please contact your primary care physician to arrange follow-up. Return to the ER for any worsening or new concerning symptoms. Referrals: Kathryn Nichole, REGISTERED CLINICAL DIETITIAN [Primary Care Provider] - Medical Decision Making 34-year-old female here with right lower quadrant dental pain, nausea, anorexia that started this morning. Patient had similar pain a couple days ago and was seen here in the emerge department and had nondiagnostic work-up including CT imaging. She notes pain today is worse. Patient denies pelvic pain, discharge or vaginal bleeding. She is status post hysterectomy. CT of the abdomen pelvis was obtained to assess for acute surgical pathology. CT noted no acute findings, corpus luteum cyst with trace pelvic free fluid still noted Labs reviewed and nondiagnostic, no leukocytosis. Patient was initially given Dilaudid 1 mg IV for pain which did improve her pain, this was followed with a second dose of Dilaudid 0.5 mg IV later in her ED course. Pain was improved on reassessment. She was given IV fluid rehydration as well as antiemetic. Patient tolerated p.o. fluid. Plan for outpatient follow-up. Disposition decision was made weighing the risks and benefits of hospitalization versus outpatient treatment, the risk for further decompensation, and the patient's wishes. The patient was stable and requested discharge. Prior to discharge, my usual and customary return precautions were reviewed with the patient - this included follow-up instructions and reason to return to the emergency department if condition worsens, does not improve as expected, or other new concerns arise. Medical Records Medical records reviewed: Yes I reviewed the patient's medical records. Lab Data Lab results reviewed: Yes I reviewed the patient's lab results. Labs: Laboratory Tests Range/Units 05/08/20 05/08/20 18:45 18:45 WBC (4.4-10.8) 10^3/uL 8.88 RBC (3.93-5.22) 10^6/uL 4.58 Hgb (11.2-15.7) g/dL 14.5 Hct (36.0-46.0) % 42.3 MCV (80-95) fL 92.4 MCH (27.0-33.0) pg 31.7 MCHC (32.0-36.0) % 34.3 RDW (11.7-14.6) % 13.6 Plt Count (130-400) 10^3/uL 189 MPV (8.0-11.0) fL 10.7 Immature Gran % 0.3 Neutrophils % 67.0 Lymphocytes % 26.7 Monocytes % 4.8 Eosinophils % 0.9 Basophils % 0.3 Nucleated RBC % % 0 Absolute Neutrophils (1.2-6.7) 10^3/uL 5.94 Absolute Lymphocytes (1.2-3.4) 10^3/uL 2.37 Absolute Monocytes (0.1-0.8) 10^3/uL 0.43 Absolute Eosinophils (0.0-0.7) 10^3/uL 0.08 Absolute Basophils (0.0-0.2) 10^3/uL 0.03 Sodium (136-145) mmol/L 141 Potassium (3.5-5.1) mmol/L 3.3 L Chloride (98-107) mmol/L 105 Carbon Dioxide (21.0-32.0) mmol/L 27.3 Anion Gap (3-11) mmol/L 8.7 BUN (7-18) mg/dL 3 L Creatinine (0.55-1.02) mg/dL 0.6 Estimated GFR/1.73 m2 (mL/min/1.73m2) >= 60.00 Glucose (74-106) mg/dL 87 Calcium (8.5-10.1) mg/dL 8.4 L Magnesium (1.8-2.4) mg/dL 2.2 Total Bilirubin (0.2-1.0) mg/dL 0.3 AST (15-37) U/L 7 L ALT (14-59) U/L 16 Alkaline Phosphatase (46-116) U/L 85 Troponin I (<0.06) ng/mL < 0.05 Total Protein (6.4-8.2) g/dL 7.0 Albumin (3.4-5.0) g/dL 3.7 Lipase (73-393) U/L 52 HPI General Mode of arrival: ambulatory . Date/Time Provider Initiated Documentation: 05/08/20 17:49 . Limitations to Documentation: no limitations . Information obtained by: patient . HPI Narrative: 34-year-old female presents with chief complaint of abdominal pain. Pain is localized to the right lower quadrant. Patient states the pain started this morning and has persisted. Pain is severe and constant. She notes associated anorexia and nausea. No vomiting. No pelvic pain. No vaginal discharge or bleeding. On chart review, I noticed that the patient was here 2 days ago for similar presentation and had CT imaging and nondiagnostic work-up. When I asked her about this she noted that the pain had resolved and then returned and is worse today. Also of note, this is the 14th ED visit for this patient in the past 12 months. She did have questionable colitis noted on CT 02/06. Related Data Home Medications Medication Instructions Recorded Confirmed acetaminophen [Tylenol] 650 mg PO PRN PRN 03/20/19 05/08/20 ibuprofen 800 mg PO Q8H PRN #30 tab 02/27/20 05/08/20 trazodone 100 mg tablet 100 mg PO HS #90 tab 03/26/20 05/08/20 sertraline 50 mg tablet 50 mg PO HS #90 tab 04/15/20 05/08/20 cyclobenzaprine 10 mg PO TID PRN #20 tab 05/02/20 05/08/20 levofloxacin 750 mg PO DAILY #6 tab 05/02/20 05/08/20 Previous Rx's Medication Instructions Recorded ibuprofen 800 mg PO Q8H PRN #30 tab 02/27/20 trazodone 100 mg tablet 100 mg PO HS #90 tab 03/26/20 sertraline 50 mg tablet 50 mg PO HS #90 tab 04/15/20 cyclobenzaprine 10 mg PO TID PRN #20 tab 05/02/20 levofloxacin 750 mg PO DAILY #6 tab 05/02/20 Allergies Allergy/AdvReac Type Severity Reaction Status Date / Time cephalexin [Cephalexin] AdvReac Severe Abdominal Verified 05/08/20 17:56 Cramps sulfamethoxazole AdvReac Severe Nausea and Verified 05/08/20 17:56 [From Bactrim] vomiting trimethoprim [From Bactrim] AdvReac Severe Nausea and Verified 05/08/20 17:56 vomiting vancomycin AdvReac Severe diarrhea, Verified 05/08/20 17:56 redness acetaminophen AdvReac Intermediate Other (See Unverified 05/08/20 17:56 Comment) Cephalosporins AdvReac Intermediate Diarrhea Verified 05/08/20 17:56 codeine phosphate AdvReac Intermediate Vomiting Verified 05/08/20 17:56 [From Tylenol-Codeine #3] ketorolac AdvReac Intermediate Cramping/vo Verified 05/08/20 17:56 mitting oxycodone AdvReac Intermediate Nausea/vomi Verified 05/08/20 17:56 tting tramadol AdvReac Intermediate Diarrhea Verified 05/08/20 17:56 General Stated Complaint: Abd Prob HALINA: 3 Review of Systems All systems reviewed & are unremarkable except as noted in HPI and below Constitutional Constitutional: Denies fever(s) Gastrointestinal Gastrointestinal: Reports abdominal pain and Reports nausea Genitourinary Genitourinary: Denies dysuria PFSH Medical History Abnormal uterine bleeding Anemia Anxiety BMI 32.0-32.9,adult Depression 2012 Seen in ED with SI. Referred to counselor. Endometriosis of pelvis (~2009) Stage1. Hepatic steatosis Hepatomegaly History of renal calculi Kidney stones Lymphedema lower left leg, pt. states its permanent Pain in pelvis Patellofemoral dysfunction of left knee Right upper quadrant abdominal pain (12/15/16) RLQ abdominal pain Vitamin D deficiency Vulvodynia Surgical History Cholecystectomy (12/28/16) Diagnostic Laproscopy (03/03/10) Stage I endometriosis EGD - MAC Extracorporeal shock wave lithotripsy Hx of hand surgery L hand, pt. reports nerves were fixed S/P laparoscopic assisted vaginal hysterectomy (LAVH) Status post endovenous radiofrequency ablation (RFA) of saphenous vein for venous insufficiency 09/06/2018 wisdom teeth extraction Family History Mother Diabetes Heart disease Hyperlipidemia Father Colon cancer Heart disease Hyperlipidemia Sister Hyperlipidemia Grandfather Diabetes Grandfather Diabetes Hyperlipidemia Asthma Grandmother Diabetes Personal history of malignant neoplasm Breast Heart disease Hyperlipidemia Grandmother No problems noted. Social History Smoking/Tobacco Use Status: Current every day Tobacco Type: cigarettes Smoking risk assessment performed?: Yes Alcohol Intake: never Drug use: Rarely Substance use type: marijuana Do you feel safe at home: Yes Do you feel safe in your relationship?: Yes Exam Const General: cooperative and no acute distress HENMT Mouth: moist mucous membranes Eyes Conjunctivae: normal conjunctivae Sclera: normal sclerae Neck Neck: trachea midline and supple Resp Auscultation: clear to auscultation bilaterally, no rales, no rhonchi and no wheezes Cardio Rate: regular rate and not tachycardic Rhythm: regular rhythm GI Palpation: soft, not firm, no guarding, no masses, not rigid and tender in the RLQ; with no rebound tenderness Skin General skin exam: no rashes or lesions noted Neuro General: patient alert, patient awake, patient oriented x3 and tone normal Extrem General: edema Laterality: left Psych Appearance: grossly normal Mental Status: mental status grossly normal Speech and Movement: speech and movement normal Course Vital Signs Vital signs: Vital Signs Temperature 37.2 C 05/08/20 17:51 Pulse 95 H 05/08/20 17:51 Respiratory Rate 18 05/08/20 17:51 Blood Pressure 148/87 H 05/08/20 17:51 Pulse Oximetry 100 05/08/20 17:51 Temperature 37.2 C 05/08/20 17:51 Temperature Source Skin 05/08/20 17:51 Pulse 95 H 05/08/20 17:51 Respiratory Rate 18 05/08/20 17:51 Respiratory Effort Non-Labored 05/08/20 17:54 Blood Pressure 148/87 H 05/08/20 17:51 Blood Pressure Position Sitting 05/08/20 17:51 Pulse Oximetry 100 05/08/20 17:51 Oxygen Delivery Method Room Air 05/08/20 17:51 Oxygen Flow Rate 0 02/19/21 17:51 Pain Level 10 05/08/20 17:51
[2020-05-08] MEDS: Lactated Ringers 1,000 ML 125 ML IV (18:42)
[2020-05-08 18:45] VITALS: BP 148/92
[2020-05-08] MEDS: HYDROmorphone 2 MG/ML VIAL 1 MG IVP (18:50)
[2020-05-08 18:57] LABS: Abs Immature Grans 0.03 10^3/uL (0.0-0.06); Absolute Basophil Count 0.03 10^3/uL (0.0-0.2); Absolute Eosinophil Count 0.08 10^3/uL (0.0-0.7); Absolute Lymphocyte Count 2.37 10^3/uL (1.2-3.4); Absolute Monocyte Count 0.43 10^3/uL (0.1-0.8); Absolute Neutrophil Count 5.94 10^3/uL (1.2-6.7); Basophils % 0.3; Eosinophils % 0.9; HCT 42.3 % (36.0-46.0); HGB 14.5 g/dL (11.2-15.7); Immature Grans % 0.3; Lymphocytes % 26.7; MCH 31.7 pg (27.0-33.0); MCHC 34.3 % (32.0-36.0); MCV 92.4 fL (80-95); MPV 10.7 fL (8.0-11.0); Monocytes % 4.8; Nucleated RBC 0 %; Platelet Count 189 10^3/uL (130-400); RBC 4.58 10^6/uL (3.93-5.22); RDW 13.6 % (11.7-14.6); WBC 8.88 10^3/uL (4.4-10.8)
[2020-05-08 19:13] LABS: ALT 16 U/L (14-59); AST 7 U/L (15-37); Albumin 3.7 g/dL (3.4-5.0); Alkaline Phosphatase 85 U/L (46-116); Anion Gap 8.7 mmol/L (3-11); BUN 3 mg/dL (7-18); Bilirubin, Total 0.3 mg/dL (0.2-1.0); CO2 27.3 mmol/L (21.0-32.0); CREATININE 0.6 mg/dL (0.55-1.02); Calcium 8.4 mg/dL (8.5-10.1); Chloride 105 mmol/L (98-107); Glucose 87 mg/dL (74-106); Lipase 52 U/L (73-393); Magnesium 2.2 mg/dL (1.8-2.4); Potassium 3.3 mmol/L (3.5-5.1); Sodium 141 mmol/L (136-145)
[2020-05-08 19:16] LABS: Troponin I < 0.05 ng/mL (<0.06)
[2020-05-08] MEDS: Omnipaque 350 MG/ML 100 ML BTL IJ (19:19)
[2020-05-08] MEDS: Normal Saline - Diluent 50 ML VIAL IV (19:19)
[2020-05-08] MEDS: HYDROmorphone 2 MG/ML VIAL 0.5 MG IVP (19:50)
[2020-05-08 20:00] VITALS: BP 151/90
--- NOTE | 2020-05-08 20:17 | DI.VRAD_ITS ---
PROCEDURE INFORMATION: Exam: CT Abdomen And Pelvis With Contrast Exam date and time: 05/08/2020 6:22 PM Age: 34 years old Clinical indication: Abdominal pain; Localized; Right lower quadrant (rlq) TECHNIQUE: Imaging protocol: Computed tomography of the abdomen and pelvis with contrast. Radiation optimization: All CT scans at this facility use at least one of these dose optimization techniques: automated exposure control; mA and/or kV adjustment per patient size (includes targeted exams where dose is matched to clinical indication); or iterative reconstruction. Contrast material: OMNIPAQUE 350; Contrast volume: 100 ml; Contrast route: INTRAVENOUS (IV); COMPARISON: CT ABDOMEN PELVIS W 05/05/2020 4:38 AM FINDINGS: Liver: Diffuse fatty infiltration. Gallbladder and bile ducts: Status post cholecystectomy. There is stable dilatation of the common bile duct. No common duct stones are visualized. Pancreas: Normal. No ductal dilation. Spleen: Normal. No splenomegaly. Adrenal glands: Normal. No mass. Kidneys and ureters: Normal. No hydronephrosis. Stomach and bowel: Unremarkable. No obstruction. No mucosal thickening. Appendix: Normal appendix. Intraperitoneal space: Trace fluid in the pelvis. No free air. No significant fluid collection. Vasculature: Unremarkable. No abdominal aortic aneurysm. Lymph nodes: Unremarkable. No enlarged lymph nodes. Urinary bladder: Unremarkable as visualized. Reproductive: An involuting corpus luteal cyst of the right ovary is again noted. Bones/joints: Unremarkable. No acute fracture. Soft tissues: Unremarkable. IMPRESSION: No acute findings. Dictated and Authenticated by: Vasyl Wadsworth MD. Ordering:MILE Erazo MD
[2020-05-08] MEDS: Ondansetron 4 MG/2 ML VIAL IVP (20:51)
[2020-05-08] MEDS: Lactated Ringers 500 ML 1000 ML IV (20:52)
[2020-05-08 21:01] VITALS: TEMP 36.8
[2020-05-08 21:02] VITALS: BP 151/84; PULSE 69; RESP 17; O2SAT 97
== END 2020-05-08 21:30 | disposition home or self-care (01) ==
PROVIDERS: Emergency Provider Student in an Organized Health Care Education/Training Program; PCP Nurse Practitioner
DX: R10.31 Right lower quadrant pain (principal); N83.11 Corpus luteum cyst of right ovary; R11.0 Nausea
CPT/HCPCS: 80053; 83690; 96374; 96375; 96376; 99285; 74177; 83735; 84484; 85025; 99284; J2405; J3490

== ENCOUNTER 2020-05-13 19:26 | Emergency (ER) | payer MEDICAID, SELFPAY ==
[2020-05-13 19:34] VITALS: BP 139/90; PULSE 95; RESP 16; TEMP 36.6; O2SAT 98
--- NOTE | 2020-05-13 19:43 | W.ED.GENAD ---
Discharge Plan Disposition Patient Disposition: HOME Condition: Good Discharge Details Clinical Impression: Right lower quadrant abdominal pain Primary Care Provider: Kathryn Nichole ED Provider: Cindi Brothers Home Meds and New Rx's Prescriptions: Continued trazodone 100 mg tablet 100 mg PO HS Qty: 90 RF: 3 sertraline 50 mg tablet 50 mg PO HS Qty: 90 RF: 3 acetaminophen [Tylenol] 325 mg Capsule 650 mg PO PRN PRNRF: 0 ibuprofen 800 mg tablet 800 mg PO Q8H PRN (Reason: pain) Qty: 30 RF: 1 levofloxacin 750 mg tablet 750 mg PO DAILY Qty: 6 RF: 0 cyclobenzaprine 10 mg tablet 10 mg PO TID PRNQty: 20 RF: 0 Discharge Instructions Instructions: Abdominal Pain (ED) Additional Instructions: Your labs and imaging are reassuring here today. Please encourage water intake. You may continue with ibuprofen as needed for discomfort. Please take as directed on the bottle. PHYSICIST [facility] that she should follow-up with regarding your right ovarian cyst. Cyst did not appear enlarged on imaging today. Please call office tomorrow to schedule follow-up appointment. If you develop fever/chills, inability stay hydrated or other new/worsening symptoms please seek care urgently once again. Referrals: Kathryn Nichole, [facility]IS [Primary Care Provider] - Iris Miller DO [OSTEOPATHIC DOCTOR] - Medical Decision Making Patient is a 34-year-old female, well-known to myself in the department, presenting today with chief complaint of right lower quadrant pain. Patient's been here 3 other times this month for the same pain. She reports the pain has progressively been worsening. She denies any vomiting. No fevers or chills. Denies any vaginal discharge. Denies any change in bowel or bladder habits. No hematuria. States the pain remains over the focal area of the right lower quadrant where she was recently diagnosed with ovarian cyst. Patient did undergo a hysterectomy in February. She was recently treated for urinary tract infection with Levaquin. Past surgical history is pertinent for cholecystectomy, EGD, vaginal hysterectomy. Past medical history pertinent for anxiety, depression, renal calculi, right lower quadrant pain. On exam, patient appears nontoxic. She appears comfortable. Lungs are clear, normal cardiac exam. She is tender over the right lower quadrant right lower quadrant pain. Patient does have voluntary guarding over McBurney's point. No rebound tenderness. No CVA tenderness. I did review the patient's chart. I am concerned regarding the number of CAT scans the patient has had and the amount of radiation this would include. Patient and I did discuss this. However, patient still does have her appendix and is tender directly over McBurney's point. I am concerned that this may be contributing to her discomfort and feel that repeat imaging would be appropriate. Patient is in agreement. We will send baseline labs. Will give 2 mg of IV morphine. She took anti-inflammatory prior to arrival. Patient is allergic to Tylenol. FINDINGS: Mediastinal space: A small hiatal hernia is present. Liver: Normal. No mass. Gallbladder and bile ducts: The gallbladder is surgically absent. The common bile duct is dilated measuring 9 mm. Pancreas: Normal. No ductal dilation. Spleen: Normal. No splenomegaly. Adrenal glands: Normal. No mass. Kidneys and ureters: Normal. No hydronephrosis. Stomach and bowel: Unremarkable. No obstruction. No mucosal thickening. Appendix: No evidence of appendicitis. Intraperitoneal space: Unremarkable. No free air. No significant fluid collection. Vasculature: Unremarkable. No abdominal aortic aneurysm. Lymph nodes: Unremarkable. No enlarged lymph nodes. Urinary bladder: Unremarkable as visualized. Reproductive: The uterus is surgically absent. No adnexal masses are seen. Bones/joints: Unremarkable. No acute fracture. Soft tissues: Unremarkable. IMPRESSION: 1. Small hiatal hernia. 2. Status post cholecystectomy and hysterectomy. 3. Dilated common bile duct (9 mm). Discussed the findings with the patient. The patient's dilated common bile duct, she has no right upper quadrant pain. She has no abnormalities in her LFTs. Patient has had noted dilatation of the common bile duct historically on previous images, no previous measurements are noted in recent past. Likely, this is unchanged from previous do not feel is evidence of acute pathology at this time. I did consult with Dr. Glass regarding patient's repeat visits and concern for a possible right ovarian cyst. This was not noted on today's imaging. We discussed the patient's frequent visits and my concern for persistent pain despite her having a recent hysterectomy and that her pain is poorly controlled. There is question if she needs to have an oophorectomy as well or at minimum have this controlled. She advised the patient to follow-up in the clinic. I discussed these findings with the patient. Advise close follow-up with PHYSICIST [facility] about the call tomorrow to schedule follow-up appointment. Return precautions were discussed. I encouraged ibuprofen to help with discomfort. Warm compresses to help with discomfort. All other questions or concerns were addressed and she is agreement with plan. Return precautions were discussed. HPI General Mode of arrival: ambulatory. Date/Time Provider Initiated Documentation: 05/13/20 19:43. Limitations to Documentation: no limitations. Information obtained by: patient, RN notes reviewed and old records reviewed. History of Present Illness 34 year old F presents to the emergency department with the chief complaint of RLQ pain, described as severe and similar to prior episodes, with intensity rated at 10. Quality is described as sharp, and is localized to the abdomen. Patient reports no radiation. Patient started experiencing this week(s) and it has been constant. No relieving factors improve symptom(s), No exacerbating factors reported . Patient notes no other symptoms.; denies chest pain, diaphoresis, fever/chills, loss of appetite, nausea/vomiting and rash. Patient did receive the following treatments prior to arrival, NSAID Related Data Home Medications Medication Instructions Recorded Confirmed acetaminophen [Tylenol] 650 mg PO PRN PRN 03/20/19 05/13/20 ibuprofen 800 mg PO Q8H PRN #30 tab 02/27/20 05/13/20 trazodone 100 mg tablet 100 mg PO HS #90 tab 03/26/20 05/13/20 sertraline 50 mg tablet 50 mg PO HS #90 tab 04/15/20 05/13/20 cyclobenzaprine 10 mg PO TID PRN #20 tab 05/02/20 05/13/20 levofloxacin 750 mg PO DAILY #6 tab 05/02/20 05/13/20 Previous Rx's Medication Instructions Recorded ibuprofen 800 mg PO Q8H PRN #30 tab 02/27/20 trazodone 100 mg tablet 100 mg PO HS #90 tab 03/26/20 sertraline 50 mg tablet 50 mg PO HS #90 tab 04/15/20 cyclobenzaprine 10 mg PO TID PRN #20 tab 05/02/20 levofloxacin 750 mg PO DAILY #6 tab 05/02/20 Allergies Allergy/AdvReac Type Severity Reaction Status Date / Time cephalexin [Cephalexin] AdvReac Severe Abdominal Verified 05/13/20 19:40 Cramps sulfamethoxazole AdvReac Severe Nausea and Verified 05/13/20 19:40 [From Bactrim] vomiting trimethoprim [From Bactrim] AdvReac Severe Nausea and Verified 05/13/20 19:40 vomiting vancomycin AdvReac Severe diarrhea, Verified 05/13/20 19:40 redness acetaminophen AdvReac Intermediate Other (See Unverified 05/13/20 19:40 Comment) Cephalosporins AdvReac Intermediate Diarrhea Verified 05/13/20 19:40 codeine phosphate AdvReac Intermediate Vomiting Verified 05/13/20 19:40 [From Tylenol-Codeine #3] ketorolac AdvReac Intermediate Cramping/vo Verified 05/13/20 19:40 mitting oxycodone AdvReac Intermediate Nausea/vomi Verified 05/13/20 19:40 tting tramadol AdvReac Intermediate Diarrhea Verified 05/13/20 19:40 General Stated Complaint: Abd Prob HALINA: 3 Review of Systems Constitutional Constitutional: Reports as per HPI, Denies chills, Denies fatigue, Denies fever(s) and Denies headache(s) ENT Ears, Nose, Mouth, and Throat: Denies headache(s) Cardiovascular Cardiovascular: Reports as per HPI, Denies chest pain and Denies dyspnea Respiratory Respiratory: Reports as per HPI, Denies cough and Denies dyspnea Gastrointestinal Gastrointestinal: Reports as per HPI Musculoskeletal Musculoskeletal: Reports as per HPI and Denies back pain Integumentary/Breasts Skin/Breast: Reports as per HPI and Denies rash Neurologic Neurologic: Reports as per HPI and Denies headache(s) Endocrine Endocrine: Denies fatigue [facility] Medical History Abnormal uterine bleeding Anemia Anxiety BMI 32.0-32.9,adult Depression 2013 Seen in ED with SI. Referred to counselor. Endometriosis of pelvis (~2009) Stage1. Hepatic steatosis Hepatomegaly History of renal calculi Kidney stones Lymphedema lower left leg, pt. states its permanent Pain in pelvis Patellofemoral dysfunction of left knee Right upper quadrant abdominal pain (12/15/16) RLQ abdominal pain Vitamin D deficiency Vulvodynia Surgical History Cholecystectomy (12/28/16) Diagnostic Laproscopy (03/03/10) Stage I endometriosis EGD - MAC Extracorporeal shock wave lithotripsy Hx of hand surgery L hand, pt. reports nerves were fixed S/P laparoscopic assisted vaginal hysterectomy (LAVH) Status post endovenous radiofrequency ablation (RFA) of saphenous vein for venous insufficiency 09/06/2018 wisdom teeth extraction Family History Mother Diabetes Heart disease Hyperlipidemia Father Colon cancer Heart disease Hyperlipidemia Sister Hyperlipidemia Grandfather Diabetes Grandfather Diabetes Hyperlipidemia Asthma Grandmother Diabetes Personal history of malignant neoplasm Breast Heart disease Hyperlipidemia Grandmother No problems noted. Social History Smoking/Tobacco Use Status: Current every day Tobacco Type: cigarettes Smoking risk assessment performed?: Yes Alcohol Intake: never Drug use: Rarely Substance use type: marijuana Do you feel safe at home: Yes Do you feel safe in your relationship?: Yes Exam Const General: cooperative, healthy appearing, comfortable, no acute distress and well developed Nutritional Appearance: well nourished Orientation: alert and awake HENMT Head: normal to inspection Mouth: moist mucous membranes Resp Effort & Inspection: normal respiratory effort, able to speak in complete sentences and no respiratory distress Auscultation: clear to auscultation bilaterally, no rales, no rhonchi and no wheezes Cardio Rate: regular rate Rhythm: regular rhythm Heart Sounds: S1 normal and S2 normal GI Inspection: normal to inspection, non-distended and no visible herniation Palpation: soft, no hepatosplenomegaly, not firm, guarding (voluntary guarding RLQ), no hepatosplenomegaly, no hernias, no masses, not rigid and tender in the RLQ and Tapia's sign positive; with no rebound tenderness Percussion: normal to percussion Auscultation: normal bowel sounds Back/Spine/Pelvis Back: no CVA tenderness Skin General skin exam: no rashes or lesions noted Trauma: no lacerations or abrasions Neuro General: patient alert and patient awake Cognition: normal cognition Speech: speech normal Gait: normal gait Psych Appearance: grossly normal and well kempt Mental Status: mental status grossly normal Speech and Movement: speech and movement normal Course Vital Signs Vital signs: Vital Signs Temperature 36.6 C 05/13/20 19:34 Pulse 95 H 05/13/20 19:34 Respiratory Rate 16 05/13/20 19:34 Blood Pressure 139/90 05/13/20 19:34 Pulse Oximetry 98 05/13/20 19:34 Temperature 36.6 C 05/13/20 19:34 Temperature Source Skin 05/13/20 19:34 Pulse 95 H 05/13/20 19:34 Respiratory Rate 16 05/13/20 19:34 Respiratory Effort 05/13/20 19:38 Blood Pressure 139/90 05/13/20 19:34 Blood Pressure Position Supine 05/13/20 19:34 Pulse Oximetry 98 05/13/20 19:34 Oxygen Delivery Method Room Air 05/13/20 19:34 Oxygen Flow Rate 0 05/13/20 19:34 Pain Level 10 05/13/20 19:41
[2020-05-13] MEDS: Normal Saline 1,000 ML 1000 ML IV (20:14)
[2020-05-13 20:24] LABS: Abs Immature Grans 0.04 10^3/uL (0.0-0.06); Absolute Basophil Count 0.05 10^3/uL (0.0-0.2); Absolute Eosinophil Count 0.14 10^3/uL (0.0-0.7); Absolute Monocyte Count 0.53 10^3/uL (0.1-0.8); Absolute Neutrophil Count 5.52 10^3/uL (1.2-6.7); Basophils % 0.6; Eosinophils % 1.6; Immature Grans % 0.5; Lymphocytes % 28.5; MCH 31.3 pg (27.0-33.0); MCHC 33.3 % (32.0-36.0); MCV 93.8 fL (80-95); MPV 10.1 fL (8.0-11.0); Neutrophils % 62.8; Nucleated RBC 0 %; Platelet Count 223 10^3/uL (130-400); RDW 13.5 % (11.7-14.6); RDW-SD 46.2 fL; WBC 8.78 10^3/uL (4.4-10.8)
[2020-05-13 20:25] LABS: Bilirubin Negative (Negative); Blood Negative (Negative); Clarity Clear (Clear); Glucose Negative (Negative); Ketones Negative (Negative); Leukocyte Esterase Negative (Negative); Nitrite Negative (Negative); Specific Gravity >= 1.030 (1.005-1.025); Urobilinogen 0.2 EU/dL (Up TO 0.2); pH 6.5 (5-8)
[2020-05-13 20:39] LABS: ALT 20 U/L (14-59); AST 9 U/L (15-37); Alkaline Phosphatase 89 U/L (46-116); Anion Gap 8.2 mmol/L (3-11); BUN 6 mg/dL (7-18); Bilirubin, Total 0.3 mg/dL (0.2-1.0); CO2 27.8 mmol/L (21.0-32.0); CREATININE 0.7 mg/dL (0.55-1.02); Calcium 8.8 mg/dL (8.5-10.1); Chloride 103 mmol/L (98-107); Glucose 88 mg/dL (74-106); Potassium 3.5 mmol/L (3.5-5.1); Sodium 139 mmol/L (136-145); Total Protein 7.6 g/dL (6.4-8.2)
[2020-05-13 20:48] VITALS: BP 134/81; PULSE 67; RESP 18; O2SAT 98
[2020-05-13] MEDS: Normal Saline Flush 10 ML SYR IVP (21:00)
[2020-05-13] MEDS: Normal Saline - Diluent 50 ML VIAL IV (21:04)
[2020-05-13] MEDS: Omnipaque 350 MG/ML 100 ML BTL IJ (21:04)
--- NOTE | 2020-05-13 21:12 | DI.CT_ITS ---
EXAM: CT ABDOMEN PELVIS W CLINICAL HISTORY: RLQ pain. TECHNIQUE: Imaging Protocol: Axial computed tomography images with coronal and sagittal reformatted images were created and reviewed CONTRAST MATERIAL: Intravenous: Omnipaque 100cc Oral: None COMPARISON: CT CT ABDOMEN PELVIS W from 05/08/2020 FINDINGS: VISUALIZED LUNG BASES: No nodules nor pleural effusions evident. ABDOMEN: There is no ascites. LIVER: There are no obvious focal hepatic lesions evident . GALLBLADDER/BILIARY: The gallbladder surgically absent. CBD diameter slightly dilated. There are no calculi in the lower CBD. PANCREAS: No evidence of pancreatic mass nor dilatation of the pancreatic duct. SPLEEN: Spleen is not enlarged. No obvious intrasplenic lesions. Splenic and portal veins are paten t. ADRENALS: There are no significant adrenal masses. KIDNEYS:No cysts evident. No solid renal masses. No calculi nor hydronephrosis.. ABDOMINAL AORTA: Abdominal aorta is not enlarged. LYMPH NODES:There are few small lymph nodes in the left para-aortic region which do not appear obviou sly pathologic ABDOMINAL WALL/GI: No evidence of significant anterior abdominal wall hernia. No bowel obstruction. PELVIS: GI: No evidence of appendicitis.No evidence of sigmoid diverticulitis. LYMPH NODES: There is no intrapelvic nor inguinal adenopathy. REPRODUCTIVE: The uterus is surgically absent. There are no abnormal adnexal masses. URINARY BLADDER: No calculi nor obvious masses evident OSSEOUS: No significant osseous lesions. IMPRESSION: 1. There is evidence of previous hysterectomy and cholecystectomy. No evidence of bowel obstruction nor free air nor abscess. CBD diameters minimally prominent which is most probably related to post c holecystectomy status. There are no significantly dilated intrahepatic ducts. 2. No evidence of appendicitis or diverticulitis. 3. No ascites evident RADIATION DOSE DELIVERED: 844.57mGy.cm Total DLP DATA REPOSITORY: All CT scans at this facility are submitted to the National Radiology Data Registry (NRDR) Dose Index Registry (DIR) with the [employer] ([employer]). RADIATION OPTIMIZATION: All CT scans at this facility use at least one of these dose optimization te chniques: automated exposure control; mA and/or kV adjustment per patient size (includes targeted exa ms where dose is matched to clinical indication); or iterative reconstruction.
--- NOTE | 2020-05-13 21:25 | DI.VRAD_ITS ---
PROCEDURE INFORMATION: Exam: CT Abdomen And Pelvis With Contrast Exam date and time: 05/13/2020 7:55 PM Age: 34 years old Clinical indication: Abdominal pain; Localized; Right lower quadrant (rlq); Prior surgery; Surgery type: Hysterectomy, cholecystectomy, endometriosis, renal stone; Patient HX: Rlq pain x1day TECHNIQUE: Imaging protocol: Computed tomography of the abdomen and pelvis with contrast. Radiation optimization: All CT scans at this facility use at least one of these dose optimization techniques: automated exposure control; mA and/or kV adjustment per patient size (includes targeted exams where dose is matched to clinical indication); or iterative reconstruction. Contrast material: [id number]; Contrast volume: 100 ml; Contrast route: INTRAVENOUS (IV); COMPARISON: CT ABDOMEN PELVIS W 05/08/2020 7:19 PM FINDINGS: Mediastinal space: A small hiatal hernia is present. Liver: Normal. No mass. Gallbladder and bile ducts: The gallbladder is surgically absent. The common bile duct is dilated measuring 9 mm. Pancreas: Normal. No ductal dilation. Spleen: Normal. No splenomegaly. Adrenal glands: Normal. No mass. Kidneys and ureters: Normal. No hydronephrosis. Stomach and bowel: Unremarkable. No obstruction. No mucosal thickening. Appendix: No evidence of appendicitis. Intraperitoneal space: Unremarkable. No free air. No significant fluid collection. Vasculature: Unremarkable. No abdominal aortic aneurysm. Lymph nodes: Unremarkable. No enlarged lymph nodes. Urinary bladder: Unremarkable as visualized. Reproductive: The uterus is surgically absent. No adnexal masses are seen. Bones/joints: Unremarkable. No acute fracture. Soft tissues: Unremarkable. IMPRESSION: 1. Small hiatal hernia. 2. Status post cholecystectomy and hysterectomy. 3. Dilated common bile duct (9 mm). Dictated and Authenticated by: Molina Harmon MD. Ordering:FEI Puente MD
[2020-05-13 21:34] VITALS: BP 145/84; PULSE 65; RESP 18; O2SAT 100
== END 2020-05-13 21:42 | disposition home or self-care (01) ==
PROVIDERS: Emergency Provider Physician Assistant; PCP Nurse Practitioner
DX: R10.31 Right lower quadrant pain (principal); N83.201 Unspecified ovarian cyst, right side
CPT/HCPCS: 80053; 96361; 96374; 99285; 74177; 81003; 85025; 99284; J3490

== ENCOUNTER 2020-05-14 19:39 | Emergency (ER) | payer MEDICAID, SELFPAY ==
[2020-05-14 19:41] VITALS: BP 142/91; PULSE 107; RESP 18; TEMP 36.7; O2SAT 99
[2020-05-14 20:05] LABS: Bilirubin Negative (Negative); Blood Large (Negative); Clarity Cloudy (Clear); Glucose Negative (Negative); Ketones Negative (Negative); Leukocyte Esterase Negative (Negative); Nitrite Negative (Negative); Specific Gravity 1.025 (1.005-1.025); Urobilinogen 0.2 EU/dL (Up TO 0.2)
--- NOTE | 2020-05-14 20:08 | ED.GENADUL_ITS ---
Discharge Plan Disposition Patient Disposition: HOME Condition: Good Discharge Details Clinical Impression: Abdominal pain, Hematuria Primary Care Provider: Kathryn Nichole ED Provider: Lesvia German Home Meds and New Rx's Prescriptions: New cyclobenzaprine 10 mg tablet 10 mg PO TID PRNQty: 6 RF: 0 No Action trazodone 100 mg tablet 100 mg PO HS Qty: 90 RF: 3 sertraline 50 mg tablet 50 mg PO HS Qty: 90 RF: 3 acetaminophen [Tylenol] 325 mg Capsule 650 mg PO PRN PRNRF: 0 ibuprofen 800 mg tablet 800 mg PO Q8H PRN (Reason: pain) Qty: 30 RF: 1 Discharge Instructions Additional Instructions: Given her chronic abdominal discomfort, I recommended follow-up with You have in your urine, please follow-up with the urologist for further evaluation Take ibuprofen and Tylenol as needed for pain You may take Flexeril helps with your symptoms, do not drive for 8 hours after taking this medication as it may make you drowsy Return earlier should you have fever, chills, worsening pain, or with any new or progressing symptoms Referrals: Sebastián Barnard MD [ [facility] STAFF PHYSICIAN] - Elsie Salazar DO [OSTEOPATHIC DOCTOR] - Discharge Data Discharge Date/Time-TO BE ENTERED AT DEPARTURE: 05/14/20 20:55 Medical Decision Making Patient appears well, and actually walked into rehabilitation she is sleeping on the bed despite stating that the Toradol is exacerbating her pain She has no tachycardia her vitals stable , Repeat heart rate 92 Oxygen saturation 99% on room air, no tachypnea, no fever Patient was referred to urology given hematuria Patient deferred surgery given recurrent abdominal pain without obvious findings Preadmission this patient provide benefit at this time given her numerous CAT scans She does not have any evidence of nephrolithiasis, suspicion for ureterolithiasis is quite low she also does not urine stating outpatient follow- up given her hematuria is reasonable , Bile duct is dilated at 9 mm, consistent with prior cholecystectomy Prescription home On clear to auscultation, oxygenation 99%, my suspicion for pneumonia I do not feel comfortable giving the patient any more opiates at this time She is given a threshold return she has been worsening complaints She is discharged home in stable condition with return precautions I spent approximately 15 minutes reviewing patient's prior CT abdomen pelvis, emergency room visit notes, urinalysis, and hysterectomy surgical Differential Diagnosis Differential Diagnosis: Pneumonia, ureterolithiasis, cholecystitis, endometriosis Medical Records Medical records reviewed: Yes I reviewed the patient's medical records. Lab Data Lab results reviewed: Yes I reviewed the patient's lab results. HPI This 31-year-old female with history of loin pain hematuria, lymphedema of the left lower extremity, endometriosis presents with persistent right flank pain. Patient states that she pelvic pain for approximately 4 months and has been evaluated on numerous occasions the last normal diagnosis. She has intermittent hematuria reportedly with her symptoms. She states she does not follow-up with urology. Patient states she feels frustrated because she has persistent pain and her but no formal diagnosis. She states I just want answers . I did ask her specifically about what her goals were from visit this evening and she states that the pain was worse when she complained that her pain can be improved upon and a diagnosis can be formulated. She denies any nausea or vomiting. She denies any chest pain or shortness of breath. She denies any change in the discomfort that she is having. She describes it as a sharp pain that is worsened in the evening. She denies additional known exacerbating or alleviating factors. General Date/Time Provider Initiated Documentation: 05/14/20 19:45 . Related Data Home Medications Medication Instructions Recorded Confirmed acetaminophen [Tylenol] 650 mg PO PRN PRN 03/20/19 05/14/20 ibuprofen 800 mg PO Q8H PRN #30 tab 02/27/20 05/14/20 trazodone 100 mg tablet 100 mg PO HS #90 tab 03/26/20 05/14/20 sertraline 50 mg tablet 50 mg PO HS #90 tab 04/15/20 05/14/20 cyclobenzaprine 10 mg PO TID PRN #6 tab 05/14/20 Previous Rx's Medication Instructions Recorded ibuprofen 800 mg PO Q8H PRN #30 tab 02/27/20 trazodone 100 mg tablet 100 mg PO HS #90 tab 03/26/20 sertraline 50 mg tablet 50 mg PO HS #90 tab 04/15/20 cyclobenzaprine 10 mg PO TID PRN #6 tab 05/14/20 Allergies Allergy/AdvReac Type Severity Reaction Status Date / Time cephalexin [Cephalexin] AdvReac Severe Abdominal Verified 05/14/20 19:47 Cramps sulfamethoxazole AdvReac Severe Nausea and Verified 05/14/20 19:47 [From Bactrim] vomiting trimethoprim [From Bactrim] AdvReac Severe Nausea and Verified 05/14/20 19:47 vomiting vancomycin AdvReac Severe diarrhea, Verified 05/14/20 19:47 redness acetaminophen AdvReac Intermediate Other (See Unverified 05/14/20 19:47 Comment) Cephalosporins AdvReac Intermediate Diarrhea Verified 05/14/20 19:47 codeine phosphate AdvReac Intermediate Vomiting Verified 05/14/20 19:47 [From Tylenol-Codeine #3] ketorolac AdvReac Intermediate Cramping/vo Verified 05/14/20 19:47 mitting oxycodone AdvReac Intermediate Nausea/vomi Verified 05/14/20 19:47 tting tramadol AdvReac Intermediate Diarrhea Verified 05/14/20 19:47 General Stated Complaint: Abd Prob HALINA: 3 Review of Systems Narrative: Review of systems obtained x7 performing HPI PFSH Medical History Abnormal uterine bleeding Anemia Anxiety BMI 32.0-32.9,adult Depression 2013 Seen in ED with SI. Referred to counselor. Endometriosis of pelvis (~2009) Stage1. Hepatic steatosis Hepatomegaly History of renal calculi Kidney stones Lymphedema lower left leg, pt. states its permanent Pain in pelvis Patellofemoral dysfunction of left knee Right upper quadrant abdominal pain (12/15/16) RLQ abdominal pain Vitamin D deficiency Vulvodynia Surgical History Cholecystectomy (12/28/16) Diagnostic Laproscopy (03/03/10) Stage I endometriosis EGD - MAC Extracorporeal shock wave lithotripsy Hx of hand surgery L hand, pt. reports nerves were fixed S/P laparoscopic assisted vaginal hysterectomy (LAVH) Status post endovenous radiofrequency ablation (RFA) of saphenous vein for venous insufficiency 09/06/2018 wisdom teeth extraction Family History Mother Diabetes Heart disease Hyperlipidemia Father Colon cancer Heart disease Hyperlipidemia Sister Hyperlipidemia Grandfather Diabetes Grandfather Diabetes Hyperlipidemia Asthma Grandmother Diabetes Personal history of malignant neoplasm Breast Heart disease Hyperlipidemia Grandmother No problems noted. Social History Smoking/Tobacco Use Status: Current every day Tobacco Type: cigarettes Smoking risk assessment performed?: Yes Alcohol Intake: never Drug use: Rarely Substance use type: marijuana Do you feel safe at home: Yes Do you feel safe in your relationship?: Yes Exam Const General: cooperative Orientation: alert and oriented x3 HENMT Mouth: oral mucosae normal Chest Chest: normal inspection of the chest Resp Effort & Inspection: normal respiratory effort Cardio Rate: regular rate Rhythm: regular rhythm GI Inspection: normal to inspection Other: No abdominal tenderness, no CVA tenderness Neuro General: patient alert and patient oriented x3 Course Vital Signs Vital signs: Plan aligned per patient. She was evaluated in the emergency room vital Signs Temperature 36.7 C 05/14/20 19:41 Pulse 107 H 05/14/20 19:41 Respiratory Rate 18 05/14/20 19:41 Blood Pressure 142/91 H 05/14/20 19:41 Pulse Oximetry 99 05/14/20 19:41 Temperature 36.7 C 05/14/20 19:41 Temperature Source Skin 05/14/20 19:41 Pulse 107 H 05/14/20 19:41 Respiratory Rate 18 05/14/20 19:41 Respiratory Effort 05/14/20 19:48 Blood Pressure 142/91 H 05/14/20 19:41 Blood Pressure Position Sitting 05/14/20 19:41 Pulse Oximetry 99 05/14/20 19:41 Oxygen Delivery Method Room Air 05/14/20 19:41 Oxygen Flow Rate 0 05/14/20 19:41 Pain Level 10 05/14/20 19:41 Comment 05/14/20 19:41
[2020-05-14 20:17] LABS: Abs Immature Grans 0.02 10^3/uL (0.0-0.06); Absolute Basophil Count 0.05 10^3/uL (0.0-0.2); Absolute Eosinophil Count 0.08 10^3/uL (0.0-0.7); Absolute Lymphocyte Count 1.92 10^3/uL (1.2-3.4); Absolute Monocyte Count 0.39 10^3/uL (0.1-0.8); Absolute Neutrophil Count 4.75 10^3/uL (1.2-6.7); Basophils % 0.7; Eosinophils % 1.1; HGB 14.5 g/dL (11.2-15.7); Immature Grans % 0.3; Lymphocytes % 26.6; MCH 31.5 pg (27.0-33.0); MCHC 33.7 % (32.0-36.0); MCV 93.5 fL (80-95); MPV 10.1 fL (8.0-11.0); Monocytes % 5.4; Neutrophils % 65.9; Nucleated RBC 0 %; Platelet Count 197 10^3/uL (130-400); RDW 13.3 % (11.7-14.6); RDW-SD 45.4 fL; WBC 7.21 10^3/uL (4.4-10.8)
[2020-05-14] MEDS: Ketorolac 15 MG/ML VIAL IVP (20:17)
[2020-05-14] MEDS: Ondansetron 4 MG/2 ML VIAL IVP (20:17)
[2020-05-14 20:21] LABS: Bacteria Negative HPF (Negative); C & S Indicated? No; Crystals Negative HPF (Negative); Epithelial Cells Negative HPF (Negative); Mucus Negative (Negative); RBC >50 HPF (0-2); WBC 0-2 HPF (0-5)
[2020-05-14 20:32] LABS: ALT 19 U/L (14-59); AST 9 U/L (15-37); Albumin 3.9 g/dL (3.4-5.0); Alkaline Phosphatase 84 U/L (46-116); Anion Gap 7.3 mmol/L (3-11); BUN 6 mg/dL (7-18); Bilirubin, Total 0.4 mg/dL (0.2-1.0); CO2 27.7 mmol/L (21.0-32.0); CREATININE 0.7 mg/dL (0.55-1.02); Calcium 8.7 mg/dL (8.5-10.1); Chloride 103 mmol/L (98-107); Glucose 98 mg/dL (74-106); Lipase 59 U/L (73-393); Potassium 3.6 mmol/L (3.5-5.1); Sodium 138 mmol/L (136-145); Total Protein 7.4 g/dL (6.4-8.2)
[2020-05-14 20:56] VITALS: BP 142/91; PULSE 107; RESP 18; TEMP 36.7; O2SAT 99
[2020-05-14] MEDS: Cyclobenzaprine 10 MG TAB PO (20:56)
== END 2020-05-14 20:55 | disposition home or self-care (01) ==
PROVIDERS: Emergency Provider Physician Assistant; PCP Nurse Practitioner
DX: R31.9 Hematuria, unspecified (principal); R10.9 Unspecified abdominal pain
CPT/HCPCS: 80053; 83690; 96374; 96375; 99284; 81003; 81015; 85025; 99283; J1885; J2405

== ENCOUNTER 2020-06-08 10:54 | Emergency (ER) | payer MEDICAID, SELFPAY ==
[2020-06-08 11:01] VITALS: BP 146/89; PULSE 92; RESP 16; TEMP 36.9; O2SAT 100
--- NOTE | 2020-06-08 11:02 | W.ED.GENAD ---
Discharge Plan Disposition Patient Disposition: HOME Condition: Stable Discharge Details Clinical Impression: Bilateral ovarian cysts Primary Care Provider: Kathryn Nichole ED Provider: Marina Moe Home Meds and New Rx's Prescriptions: Continued trazodone 100 mg tablet 100 mg PO HS Qty: 90 RF: 3 sertraline 50 mg tablet 50 mg PO HS Qty: 90 RF: 3 acetaminophen [Tylenol] 325 mg Capsule 650 mg PO PRN PRNRF: 0 ibuprofen 800 mg tablet 800 mg PO Q8H PRN (Reason: pain) Qty: 30 RF: 1 Discharge Instructions Instructions: Ovarian Cyst (ED) Additional Instructions: On the ultrasound today showed you have a complex cyst on the right ovary and a small cyst on the left ovary. This may be what is causing your pain. Apply heating pad or similar to the area. Follow-up with your [facility] in 3 to 5 days or as needed. Follow up with primary care provider in 3-5 days. Return to ED sooner if any worsening or concerns. Increase oral fluids. Please take Tylenol or Ibuprofen with food every 4-6 hours as needed for pain and swelling. Referrals: Kathryn Nichole, [facility] [Primary Care Provider] - Iris Miller DO [OSTEOPATHIC DOCTOR] - Medical Decision Making 34-year-old female presents to the ER after a visit to [facility] just prior to arrival where she had some blood drawn and an outpatient ultrasound ordered. She report an exacerbation of her chronic right sided abdominal pain this morning at 5 AM associated with extreme nausea, no vomiting, diarrhea which she report as greasy, fever T-max reported at 103. She denies receiving any medications from [facility] prior to arrival. She did take Tylenol and ibuprofen this morning. She denies any vaginal discharge or bleeding, denies any dysuria or urinary frequency. She denies any sore throat cough shortness of breath. She has a history of chronic abdominal pain and has had multiple visits to the emergency room this year. She has had approximately 4 CT scans documented at this facility since beginning of the year. She is status post a hysterectomy on April 13, 2019, she has a past medical history of right lower and right upper quadrant chronic abdominal pain, lymphedema, kidney stones, ovarian cyst, hepatomegaly, hepatic steatosis, endometriosis, depression, anxiety. Past surgical history includes laparoscopic vaginal hysterectomy, lithotripsy, EGD, cholecystectomy. Labs ordered including CBC, CMP, magnesium. Urinalysis was within normal limits [facility] today's that was not ordered. Patient has had multiple visits in the last 6 months up to 6 or 7 visits and for CTs of her abdomen pelvis since the beginning of the year. I did order the ultrasound which was ordered as an outpatient for [facility]. Patient was given fentanyl IV here in department and antiemetic of Zofran. EXAM: US PELVIS TRANSVAGINAL FINDINGS: UTERUS: Uterus is surgically absent. RIGHT OVARY: Measures 3.8 x 2.8 x 2.4 cm There is a complex cyst the right ovary measuring 3.2 x 2.4 x 3.0 cm. Exhibits both solid and cystic characteristics. LEFT OVARY: Measures 1.7 by 1.5 x 2.7 cm There is a cyst in the left ovary measuring 1.5 x 1.7 cm. There is some fluid in the left adnexa adjacent to the left ovary. Vascular flow is demonstrated left ovary. IMPRESSION: 1. The uterus is surgically absent. 2. Complex cyst right ovary measuring 3.2 by 2.4 cm 3. Cystic structure in the left ovary measuring 1.5 x 1.7 cm and there is some fluid in the left adnexa adjacent to the left ovary. Vascular flow is demonstrated in both ovaries. No obvious torsion Patient discharged from the department with instructions to follow-up with [facility] and or PCP as indicated. She remained hemodynamically intact throughout her stay. This text was generated using Ping4ation system, please disregard any oddities of phrase or misspellings. HPI General Mode of arrival: ambulatory. Date/Time Provider Initiated Documentation: 06/08/20 10:56. Limitations to Documentation: no limitations. Information obtained by: patient, RN notes reviewed and old records reviewed. HPI Narrative: 34-year-old female presents to the ER after a visit to [facility] just prior to arrival where she had some blood drawn and an outpatient ultrasound ordered. She report an exacerbation of her chronic right sided abdominal pain this morning at 5 AM associated with extreme nausea, no vomiting, diarrhea which she report as greasy, fever T-max reported at 103. She denies receiving any medications from [facility] prior to arrival. She did take Tylenol and ibuprofen this morning. She denies any vaginal discharge or bleeding, denies any dysuria or urinary frequency. She denies any sore throat cough shortness of breath. She has a history of chronic abdominal pain and has had multiple visits to the emergency room this year. She has had approximately 4 CT scans documented at this facility since beginning of the year. She is status post a hysterectomy on April 13, 2019, she has a past medical history of right lower and right upper quadrant chronic abdominal pain, lymphedema, kidney stones, ovarian cyst, hepatomegaly, hepatic steatosis, endometriosis, depression, anxiety. Past surgical history includes laparoscopic vaginal hysterectomy, lithotripsy, EGD, cholecystectomy. Related Data Home Medications Medication Instructions Recorded Confirmed acetaminophen [Tylenol] 650 mg PO PRN PRN 03/20/19 06/08/20 ibuprofen 800 mg PO Q8H PRN #30 tab 02/27/20 06/08/20 trazodone 100 mg tablet 100 mg PO HS #90 tab 03/26/20 06/08/20 sertraline 50 mg tablet 50 mg PO HS #90 tab 04/15/20 06/08/20 Previous Rx's Medication Instructions Recorded ibuprofen 800 mg PO Q8H PRN #30 tab 02/27/20 trazodone 100 mg tablet 100 mg PO HS #90 tab 03/26/20 sertraline 50 mg tablet 50 mg PO HS #90 tab 04/15/20 Allergies Allergy/AdvReac Type Severity Reaction Status Date / Time cephalexin [Cephalexin] AdvReac Severe Abdominal Verified 06/08/20 11:03 Cramps sulfamethoxazole AdvReac Severe Nausea and Verified 06/08/20 11:03 [From Bactrim] vomiting trimethoprim [From Bactrim] AdvReac Severe Nausea and Verified 06/08/20 11:03 vomiting vancomycin AdvReac Severe diarrhea, Verified 06/08/20 11:03 redness acetaminophen AdvReac Intermediate Other (See Verified 06/08/20 11:03 Comment) Cephalosporins AdvReac Intermediate Diarrhea Verified 06/08/20 11:03 codeine phosphate AdvReac Intermediate Vomiting Verified 06/08/20 11:03 [From Tylenol-Codeine #3] ketorolac AdvReac Intermediate Cramping/vo Verified 06/08/20 11:03 mitting oxycodone AdvReac Intermediate Nausea/vomi Verified 06/08/20 11:03 tting tramadol AdvReac Intermediate Diarrhea Verified 06/08/20 11:03 General HALINA: 3 Review of Systems Narrative: Constitutional: Negative for weight loss, alert and oriented, well groomed, normal body habitus, appears comfortable. Reports fever. HEENT: Denies trauma, headaches, blurry vision, nasal discharge, sore throat, trouble swallowing. Chest: Denies chest pain, palpitations, irregular rhythm, hypertension. Respiratory: Denies Shortness of breath, cough, hemoptysis. GI: Denies vomiting, constipation. Positive right lower quadrant abdominal pain, diarrhea. : Denies dysuria, hematuria, flank pain, rectal bleeding. Neuro: Denies dizziness, blurry vision, weakness, syncope, headache or facial numbness. Hematologic: Denies easy bruising, intolerance to heat or cold, hair loss. [facility] Medical History Abnormal uterine bleeding Anemia Anxiety BMI 32.0-32.9,adult Depression 2012 Seen in ED with SI. Referred to counselor. Endometriosis of pelvis (~2009) Stage1. Hepatic steatosis Hepatomegaly History of renal calculi Kidney stones Lymphedema lower left leg, pt. states its permanent Pain in pelvis Patellofemoral dysfunction of left knee Right upper quadrant abdominal pain (12/15/16) RLQ abdominal pain Vitamin D deficiency Vulvodynia Surgical History Cholecystectomy (12/28/16) Diagnostic Laproscopy (03/03/10) Stage I endometriosis EGD - MAC Extracorporeal shock wave lithotripsy Hx of hand surgery L hand, pt. reports nerves were fixed S/P laparoscopic assisted vaginal hysterectomy (LAVH) Status post endovenous radiofrequency ablation (RFA) of saphenous vein for venous insufficiency 09/06/2018 wisdom teeth extraction Family History Mother Diabetes Heart disease Hyperlipidemia Father Colon cancer Heart disease Hyperlipidemia Sister Hyperlipidemia Grandfather Diabetes Grandfather Diabetes Hyperlipidemia Asthma Grandmother Diabetes Personal history of malignant neoplasm Breast Heart disease Hyperlipidemia Grandmother No problems noted. Social History Smoking/Tobacco Use Status: Current every day Tobacco Type: cigarettes Smoking risk assessment performed?: Yes Alcohol Intake: never Drug use: Rarely Substance use type: marijuana Do you feel safe at home: Yes Do you feel safe in your relationship?: Yes Exam Narrative Exam Narrative: Constitutional: Alert and oriented x3. Appears stated age. Normal body habitus. Head: Normocephalic, no trauma. Eyes: Pupils PERRLA, Red reflex noted, EOM's intact. Eyelids symmetrical without lesions, discharge, or swelling. ENT: Bilateral TM's WNL, External ear normal to inspection, no mastoid TTP, swelling, or erythema, Nasal turbinates WNL, no nasal discharge. Normal dentition, Posterior pharynx WNL, no exudate. Chest: RRR, Normal S1, S2, distal pulses intact. Resp: Lungs clear to auscultation bilaterally, no wheezes, rales, or rhonchi. Abdomen: Soft, nondistended questionable tenderness noted to the right lower quadrant with palpation. Musculoskeletal: Normal gait, 5/5 strength to all four extremities. Skin: No suspicious rashes or lesions. Capillary refill less than 2 sec. Neurologic: Cranial nerves II-XII intact. Alert and oriented x 3. DTR's intact. Hematologic/Lymphatic: No ecchymosis, no lymphadenopathy.
--- NOTE | 2020-06-08 11:15 | DI.US_ITS ---
EXAM: US PELVIS TRANSVAGINAL CLINICAL HISTORY: S/P Hysterectomy, RLQ pain R/O Ovarian cyst TECHNIQUE: Ultrasound of the pelvis was performed both transabdominal and transvaginal. COMPARISON: US US PELVIS TRANSVAGINAL from 01/08/2020 FINDINGS: UTERUS: Uterus is surgically absent. RIGHT OVARY: Measures 3.8 x 2.8 x 2.4 cm There is a complex cyst the right ovary measuring 3.2 x 2.4 x 3.0 cm. Exhibits both solid and cystic characteristics. LEFT OVARY: Measures 1.7 by 1.5 x 2.7 cm There is a cyst in the left ovary measuring 1.5 x 1.7 cm. There is some fluid in the left adnexa adj acent to the left ovary. Vascular flow is demonstrated left ovary. IMPRESSION: 1. The uterus is surgically absent. 2. Complex cyst right ovary measuring 3.2 by 2.4 cm 3. Cystic structure in the left ovary measuring 1.5 x 1.7 cm and there is some fluid in the left adne xa adjacent to the left ovary. Vascular flow is demonstrated in both ovaries. No obvious torsion DATA REPOSITORY:
[2020-06-08] MEDS: Normal Saline 1,000 ML 1000 ML IV (11:30)
[2020-06-08] MEDS: Ondansetron 4 MG/2 ML VIAL IVP (11:34)
[2020-06-08] MEDS: fentaNYL 100 MCG/2 ML VIAL 25 MCG IVP ×2 (11:38→12:49)
[2020-06-08 11:42] LABS: Abs Immature Grans 0.05 10^3/uL (0.0-0.06); Absolute Basophil Count 0.03 10^3/uL (0.0-0.2); Absolute Eosinophil Count 0.09 10^3/uL (0.0-0.7); Absolute Lymphocyte Count 1.66 10^3/uL (1.2-3.4); Absolute Monocyte Count 0.61 10^3/uL (0.1-0.8); Absolute Neutrophil Count 6.81 10^3/uL (1.2-6.7); Basophils % 0.3; HCT 44.8 % (36.0-46.0); HGB 15.1 g/dL (11.2-15.7); Immature Grans % 0.5; Lymphocytes % 17.9; MCH 31.8 pg (27.0-33.0); MCHC 33.7 % (32.0-36.0); MCV 94.3 fL (80-95); MPV 10.4 fL (8.0-11.0); Monocytes % 6.6; Neutrophils % 73.7; Nucleated RBC 0 %; Platelet Count 223 10^3/uL (130-400); RBC 4.75 10^6/uL (3.93-5.22); RDW 13.5 % (11.7-14.6); RDW-SD 47.3 fL; WBC 9.25 10^3/uL (4.4-10.8)
[2020-06-08 11:43] LABS: ALT 17 U/L (14-59); AST 7 U/L (15-37); Albumin 3.7 g/dL (3.4-5.0); Alkaline Phosphatase 90 U/L (46-116); Anion Gap 9.5 mmol/L (3-11); BUN 6 mg/dL (7-18); Bilirubin, Total 0.2 mg/dL (0.2-1.0); CO2 27.5 mmol/L (21.0-32.0); CREATININE 0.7 mg/dL (0.55-1.02); Calcium 8.6 mg/dL (8.5-10.1); Chloride 105 mmol/L (98-107); Glucose 103 mg/dL (74-106); Magnesium 1.9 mg/dL (1.8-2.4); Potassium 3.6 mmol/L (3.5-5.1); Sodium 142 mmol/L (136-145); Total Protein 7.2 g/dL (6.4-8.2)
[2020-06-08 12:51] VITALS: BP 130/76; PULSE 68; RESP 14; TEMP 36.8; O2SAT 100
[2020-06-08 13:04] VITALS: BP 130/76; PULSE 68; RESP 14; TEMP 36.8; O2SAT 100
== END 2020-06-08 13:06 | disposition home or self-care (01) ==
PROVIDERS: Emergency Provider Registered Nurse Emergency; PCP Nurse Practitioner
DX: N83.291 Other ovarian cyst, right side (principal); N83.292 Other ovarian cyst, left side; R11.0 Nausea
CPT/HCPCS: 36415; 80053; 96361; 96374; 96375; 96376; 99284; 76830; 76856; 83735; 85025; J2405; J3010

== ENCOUNTER 2020-06-08 13:10 | Outpatient (REF) | payer MEDICAID, SELFPAY ==
[2020-06-08 14:05] LABS: Abs Immature Grans 0.03 10^3/uL (0.0-0.06); Absolute Basophil Count 0.03 10^3/uL (0.0-0.2); Absolute Eosinophil Count 0.08 10^3/uL (0.0-0.7); Absolute Lymphocyte Count 1.51 10^3/uL (1.2-3.4); Absolute Neutrophil Count 6.13 10^3/uL (1.2-6.7); Basophils % 0.4; HCT 42.7 % (36.0-46.0); HGB 14.4 g/dL (11.2-15.7); Immature Grans % 0.4; Lymphocytes % 18.2; MCH 31.2 pg (27.0-33.0); MCHC 33.7 % (32.0-36.0); MCV 92.4 fL (80-95); MPV 11.1 fL (8.0-11.0); Nucleated RBC 0 %; Platelet Count 217 10^3/uL (130-400); RBC 4.62 10^6/uL (3.93-5.22); RDW 13.6 % (11.7-14.6); RDW-SD 46.1 fL; WBC 8.28 10^3/uL (4.4-10.8)
[2020-06-08 14:19] LABS: ALT 16 U/L (14-59); AST 8 U/L (15-37); Albumin 3.7 g/dL (3.4-5.0); Alkaline Phosphatase 91 U/L (46-116); Anion Gap 10.2 mmol/L (3-11); BUN 6 mg/dL (7-18); Bilirubin, Total 0.2 mg/dL (0.2-1.0); CO2 26.8 mmol/L (21.0-32.0); CREATININE 0.7 mg/dL (0.55-1.02); Calcium 8.6 mg/dL (8.5-10.1); Chloride 105 mmol/L (98-107); Glucose 106 mg/dL (74-106); Potassium 4.1 mmol/L (3.5-5.1); Sodium 142 mmol/L (136-145); Total Protein 6.8 g/dL (6.4-8.2)
== END 2020-06-08 13:11 | disposition home or self-care (01) ==
LOC: LBN 13:10
PROVIDERS: PCP Nurse Practitioner; Visit Provider Nurse Practitioner Family
DX: R10.31 Right lower quadrant pain (principal)
CPT/HCPCS: 80053; 85025

== ENCOUNTER 2020-06-13 16:38 | Emergency (ER) | payer MEDICAID, SELFPAY ==
[2020-06-13 16:42] VITALS: BP 129/77; PULSE 102; TEMP 36.7; O2SAT 99
--- NOTE | 2020-06-13 16:44 | ED.GENADUL_ITS ---
Discharge Plan Disposition Patient Disposition: HOME Condition: Good Discharge Details Clinical Impression: Flank pain, Hematuria Primary Care Provider: Kathryn Nichole ED Provider: Cindi Brothers Home Meds and New Rx's Prescriptions: Continued norgestimate-ethinyl estradiol [Sprintec (28)] 0.25-35 mg-mcg tablet 1 tab PO DAILY Qty: 84 RF: 0 diclofenac potassium [Cataflam] 50 mg tablet 50 mg PO BID PRN (Reason: pain) Qty: 20 RF: 0 trazodone 100 mg tablet 100 mg PO HS Qty: 90 RF: 3 sertraline 50 mg tablet 50 mg PO HS Qty: 90 RF: 3 acetaminophen [Tylenol] 325 mg Capsule 650 mg PO PRN PRNRF: 0 ibuprofen 800 mg tablet 800 mg PO Q8H PRN (Reason: pain) Qty: 30 RF: 1 Discharge Instructions Instructions: Hematuria (ED), Flank Pain (ED) Additional Instructions: Your labs and imaging are reassuring today. Please encourage water intake. Please continue with Tylenol as needed for discomfort. You may also use the diclofenac as prescribed by MESSENGER FLOORPERSON. You do have blood in your urine but again, this does appear to be chronic. No evidence of infection. No kidney stone. We have referred you to painter hand to discuss your chronic abdominal discomfort. Please continue your follow-up with M[facility]EN[facility] FLOORPERSON as well as general surgery. Please follow-up with your primary care in the next 1 to 2 weeks for reevaluation. If you develop fever/chills, inability stay hydrated, or other new/worsening symptom please seek care urgently once again. Referrals: Kathryn Ncihole, [employer] WORK[employer] [Primary Care Provider] - Discharge Data Discharge Date/Time-TO BE ENTERED AT DEPARTURE: 06/13/20 18:38 Medical Decision Making Patient is a 34-year-old female with past medical history pertinent for hematuria, laparoscopic-assisted vaginal hysterectomy, endometriosis, anxiety, chronic abdominal pain, kidney stones. Patient reports that this morning she started having some left-sided flank pain and is concerned she may have recurrence of her kidney stones. States that she noted hematuria. No fevers or chills. Endorses nausea, no vomiting. No change in appetite. No change in bowel habits. Denies any increased frequency, urgency or dysuria. No vaginal discharge. Pain does not radiate into the abdomen. On exam, patient appears comfortable and nontoxic. She does have CVA tenderness on the left side of caution. No abdominal pain. Patient appears nontoxic. Vital signs significant for heart rate of 102. I discussed pain management with the patient. She reports she tried both Tylenol and ibuprofen with limited improvement. On chart review, I am concerned that the patient having received large quantities of narcotics and feel that that at this point, the risk outweighs the benefits and would like to hold off on narcotics at this point. We will treat her nausea with Zofran and will hydrate the patient. We do not have an hvac/r service technician available at this point, going forward with renal CT. FINDINGS: Liver: The liver parenchyma demonstrates diffusely decreased attenuation, suggesting fatty infiltration. Gallbladder and bile ducts: There has been a cholecystectomy. There is no biliary ductal dilatation. Pancreas: Normal. No ductal dilation. Spleen: Normal. No splenomegaly. Adrenal glands: Normal. No mass. Kidneys and ureters: No renal or ureteral stones are identified. There is no hydronephrosis or hydroureter. Stomach and bowel: There are scattered distal colonic diverticula without evidence for acute diverticulitis. There is no evidence of small or large bowel inflammation. There is no evidence for bowel obstruction. Appendix: The appendix is well visualized and appears normal. Intraperitoneal space: There is increased tiny amount of fluid in the pelvis, likely physiologic. Vasculature: Unremarkable. No abdominal aortic aneurysm. Lymph nodes: Unremarkable. No enlarged lymph nodes. Urinary bladder: Unremarkable as visualized. Reproductive: There has been a hysterectomy. Bones/joints: Unremarkable. No acute fracture. Soft tissues: Unremarkable. IMPRESSION: 1. No urinary tract stones identified. No evidence of urinary tract obstruction. 2. Hepatic steatosis. 3. Scattered distal colonic diverticula without evidence of diverticulitis. 4. Status post cholecystectomy and hysterectomy. Labs reviewed. No leukocytosis. Stable H&H. CMP without significant abnormality. Urinalysis with large amount of blood. Negative for bacteria. Negative for protein. Negative for leukocyte esterase. Discussed the findings with the patient. Advised this could be musculoskeletal. Patient is also been here numerous times for migratory abdominal low back pain. I am also wondering if she may have a chronic pain issue and have requested marlee t she follow-up with pain management. I did encourage that she keep her upcoming follow-up appointment with general surgery, [facility]EN[facility]LOOR[facility]ERSON. I also advised that she should follow-up with her primary care as well regarding her hematuria and chronic pain. Return precautions were discussed. All of her questions and concerns were addressed and she is in agreement this plan. HPI General Mode of arrival: ambulatory . Date/Time Provider Initiated Documentation: 06/13/20 16:44 . Limitations to Documentation: no limitations . Information obtained by: patient, RN notes reviewed and old records reviewed . History of Present Illness 34 year old F presents to the emergency department with the chief complaint of left flank pain, described as severe and similar to prior episodes, with intensity rated at 10. Quality is described as aching, and is localized to the back. Patient reports no radiation. Patient started experiencing this hour(s) and it has been constant. No relieving factors improve symptom(s), No exacerbating factors reported . Patient notes nausea/vomiting (nausea, no vomiting); denies chest pain, cough, fever/chills, headaches, loss of appetite, rash, shortness of breath and weakness. Patient did receive the following treatments prior to arrival, NSAID and other (APAP) Related Data Home Medications Medication Instructions Recorded Confirmed acetaminophen [Tylenol] 650 mg PO PRN PRN 03/20/19 06/13/20 ibuprofen 800 mg PO Q8H PRN #30 tab 02/27/20 06/13/20 trazodone 100 mg tablet 100 mg PO HS #90 tab 03/26/20 06/13/20 sertraline 50 mg tablet 50 mg PO HS #90 tab 04/15/20 06/13/20 diclofenac potassium 50 mg tablet 50 mg PO BID PRN #20 tab 06/11/20 06/13/20 norgestimate 0.25 mg-ethinyl 1 tab PO DAILY #84 tab 06/11/20 06/13/20 estradiol 35 mcg tablet Previous Rx's Medication Instructions Recorded ibuprofen 800 mg PO Q8H PRN #30 tab 02/27/20 trazodone 100 mg tablet 100 mg PO HS #90 tab 03/26/20 sertraline 50 mg tablet 50 mg PO HS #90 tab 04/15/20 diclofenac potassium 50 mg tablet 50 mg PO BID PRN #20 tab 06/11/20 norgestimate 0.25 mg-ethinyl 1 tab PO DAILY #84 tab 06/11/20 estradiol 35 mcg tablet Allergies Allergy/AdvReac Type Severity Reaction Status Date / Time cephalexin [Cephalexin] AdvReac Severe Abdominal Verified 06/13/20 16:46 Cramps sulfamethoxazole AdvReac Severe Nausea and Verified 06/13/20 16:46 [From Bactrim] vomiting trimethoprim [From Bactrim] AdvReac Severe Nausea and Verified 06/13/20 16:46 vomiting vancomycin AdvReac Severe diarrhea, Verified 06/13/20 16:46 redness acetaminophen AdvReac Intermediate Other (See Verified 06/13/20 16:46 Comment) Cephalosporins AdvReac Intermediate Diarrhea Verified 06/13/20 16:46 codeine phosphate AdvReac Intermediate Vomiting Verified 06/13/20 16:46 [From Tylenol-Codeine #3] ketorolac AdvReac Intermediate Cramping/vo Verified 06/13/20 16:46 mitting oxycodone AdvReac Intermediate Nausea/vomi Verified 06/13/20 16:46 tting tramadol AdvReac Intermediate Diarrhea Verified 06/13/20 16:46 General HALINA: 3 Review of Systems Constitutional Constitutional: Reports as per HPI, Denies chills, Denies fatigue, Denies fever(s) and Denies headache(s) ENT Ears, Nose, Mouth, and Throat: Denies headache(s) Cardiovascular Cardiovascular: Reports as per HPI, Denies chest pain and Denies dyspnea Respiratory Respiratory: Reports as per HPI, Denies cough and Denies dyspnea Gastrointestinal Gastrointestinal: Reports as per HPI Genitourinary Genitourinary: Reports as per HPI Musculoskeletal Musculoskeletal: Reports as per HPI Neurologic Neurologic: Denies headache(s) Endocrine Endocrine: Denies fatigue PFSH Medical History Abnormal uterine bleeding Anemia Anxiety BMI 32.0-32.9,adult Depression 2012 Seen in ED with SI. Referred to counselor. Endometriosis of pelvis (~2009) Stage1. Hepatic steatosis Hepatomegaly History of renal calculi Kidney stones Lymphedema lower left leg, pt. states its permanent Pain in pelvis Patellofemoral dysfunction of left knee Right upper quadrant abdominal pain (12/15/16) RLQ abdominal pain Vitamin D deficiency Vulvodynia Surgical History Cholecystectomy (12/28/16) Diagnostic Laproscopy (03/03/10) Stage I endometriosis EGD - MAC Extracorporeal shock wave lithotripsy Hx of hand surgery L hand, pt. reports nerves were fixed S/P laparoscopic assisted vaginal hysterectomy (LAVH) Status post endovenous radiofrequency ablation (RFA) of saphenous vein for venous insufficiency 09/06/2018 wisdom teeth extraction Family History Mother Diabetes Heart disease Hyperlipidemia Father Colon cancer Heart disease Hyperlipidemia Sister Hyperlipidemia Grandfather Diabetes Grandfather Diabetes Hyperlipidemia Asthma Grandmother Diabetes Personal history of malignant neoplasm Breast Heart disease Hyperlipidemia Grandmother No problems noted. Social History Smoking/Tobacco Use Status: Current every day Tobacco Type: cigarettes Smoking risk assessment performed?: Yes Alcohol Intake: never Drug use: Rarely Substance use type: marijuana Do you feel safe at home: Yes Do you feel safe in your relationship?: Yes Exam Const General: cooperative, healthy appearing, comfortable, no acute distress and well developed Nutritional Appearance: well nourished and overweight Orientation: alert and awake HENMT Mouth: moist mucous membranes Resp Effort & Inspection: normal respiratory effort and no respiratory distress Auscultation: clear to auscultation bilaterally, no rales, no rhonchi and no wheezes Cardio Rate: regular rate Rhythm: regular rhythm Heart Sounds: S1 normal and S2 normal GI Inspection: normal to inspection, no edema and non-distended Palpation: soft, no hepatosplenomegaly, no guarding, no hernias, no pulsatile masses and nontender Percussion: normal to percussion Auscultation: normal bowel sounds Back/Spine/Pelvis Back: CVA tenderness (left sided tenderness with percussion) Skin General skin exam: no rashes or lesions noted Neuro General: patient alert and patient awake Cognition: normal cognition Speech: speech normal Gait: normal gait Psych Appearance: grossly normal and well kempt Mental Status: mental status grossly normal Speech and Movement: speech and movement normal
[2020-06-13 16:59] LABS: Bilirubin Negative (Negative); Blood Large (Negative); Clarity Cloudy (Clear); Glucose Negative (Negative); Ketones Negative (Negative); Leukocyte Esterase Negative (Negative); Nitrite Negative (Negative); Specific Gravity 1.025 (1.005-1.025); Urobilinogen 0.2 EU/dL (Up TO 0.2); pH 8.5 (5-8)
--- NOTE | 2020-06-13 17:00 | DI.CT_ITS ---
EXAM: CT RENAL COLIC WO CLINICAL HISTORY: left flank pain. TECHNIQUE: Imaging Protocol: Axial computed tomography images with coronal and sagittal reformatted images were created and reviewed CONTRAST MATERIAL: Intravenous: none Oral: None COMPARISON: CT CT ABDOMEN PELVIS W from 05/13/[address] ABDOMEN PELVIS W from 05/13/2020 FINDINGS: VISUALIZED LUNG BASES: No nodules nor pleural effusions evident. ABDOMEN: There is no ascites in the upper abdomen. LIVER: There are no obvious focal hepatic lesions evident of this noninfused study. GALLBLADDER/BILIARY: Gallbladder is surgically absent. CBD is not dilated. PANCREAS: No evidence of pancreatic mass nor dilatation of the pancreatic duct. SPLEEN: Spleen is not enlarged. No obvious intrasplenic lesions. ADRENALS: There are no significant adrenal masses. KIDNEYS:No cysts evident. No solid renal masses. No calculi nor hydronephrosis.. No hydroureter. ABDOMINAL AORTA: Abdominal aorta is not enlarged. LYMPH NODES: There is no retroperitoneal nor paraaortic adenopathy. ABDOMINAL WALL/GI: No evidence of significant anterior abdominal wall hernia. Small fat containing u mbilical hernia. No bowel loops therein. No bowel obstruction PELVIS: LYMPH NODES: There is no intrapelvic nor inguinal adenopathy. GI: No evidence of appendicitis.There is a hyperdense 6 x 6 millimeter diverticulum evident off the l ateral wall of the sigmoid. No obvious diverticulitis. URINARY BLADDER: No calculi nor obvious masses evident REPRODUCTIVE: Uterus is surgically absent. Ovaries are identified and appear age-appropriate. There is small amount of fluid in the dependent aspect of the pelvis. OSSEOUS: No significant osseous lesions. IMPRESSION: 1. Previous cholecystectomy and partial hysterectomy. No dilatation of the biliary tree. No evidenc e of bowel obstruction. 2. There is, however, small amount of fluid in the dependent aspect of the pelvis. 3. There are few scattered colon diverticula but without obvious acute obvious acute diverticulitis. 4. No evidence of urinary tract calculi nor urinary tract obstruction, as per request. RADIATION DOSE DELIVERED: 773.91mGy.cm Total DLP DATA REPOSITORY: All CT scans at this facility are submitted to the National Radiology Data Registry (NRDR) Dose Index Registry (DIR) with the [employer] (ACR). RADIATION OPTIMIZATION: All CT scans at this facility use at least one of these dose optimization te chniques: automated exposure control; mA and/or kV adjustment per patient size (includes targeted exa ms where dose is matched to clinical indication); or iterative reconstruction.
[2020-06-13 17:06] LABS: Bacteria Negative HPF (Negative); C & S Indicated? No; Crystals Negative HPF (Negative); Epithelial Cells Few HPF (Negative); Mucus Negative (Negative); RBC >50 HPF (0-2); WBC Negative HPF (0-5)
[2020-06-13] MEDS: Ondansetron 4 MG/2 ML VIAL IVP (17:18)
[2020-06-13] MEDS: Normal Saline 1,000 ML 1000 ML IV (17:18)
[2020-06-13 17:20] LABS: Abs Immature Grans 0.03 10^3/uL (0.0-0.06); Absolute Basophil Count 0.03 10^3/uL (0.0-0.2); Absolute Eosinophil Count 0.14 10^3/uL (0.0-0.7); Absolute Monocyte Count 0.49 10^3/uL (0.1-0.8); Absolute Neutrophil Count 5.03 10^3/uL (1.2-6.7); Basophils % 0.4; Eosinophils % 1.7; HGB 14.3 g/dL (11.2-15.7); Immature Grans % 0.4; Lymphocytes % 29.6; MCH 32.4 pg (27.0-33.0); MPV 10.3 fL (8.0-11.0); Neutrophils % 61.9; Nucleated RBC 0 %; Platelet Count 225 10^3/uL (130-400); RBC 4.42 10^6/uL (3.93-5.22); RDW 13.5 % (11.7-14.6); RDW-SD 47.3 fL; WBC 8.12 10^3/uL (4.4-10.8)
[2020-06-13 17:33] LABS: ALT 18 U/L (14-59); AST 5 U/L (15-37); Albumin 3.6 g/dL (3.4-5.0); Alkaline Phosphatase 108 U/L (46-116); Anion Gap 8.7 mmol/L (3-11); BUN 9 mg/dL (7-18); Bilirubin, Total 0.2 mg/dL (0.2-1.0); CO2 26.3 mmol/L (21.0-32.0); CREATININE 0.7 mg/dL (0.55-1.02); Calcium 8.3 mg/dL (8.5-10.1); Chloride 106 mmol/L (98-107); Glucose 115 mg/dL (74-106); Potassium 3.7 mmol/L (3.5-5.1); Sodium 141 mmol/L (136-145)
[2020-06-13] MEDS: Acetaminophen 500 MG TAB 1000 MG PO (17:43)
--- NOTE | 2020-06-13 18:21 | DI.VRAD_ITS ---
PROCEDURE INFORMATION: Exam: CT Abdomen And Pelvis Without Contrast Exam date and time: 06/13/2020 5:25 PM Age: 34 years old Clinical indication: Other: Left flank pain TECHNIQUE: Imaging protocol: Computed tomography of the abdomen and pelvis without contrast. COMPARISON: CT ABDOMEN PELVIS W 05/13/2020 9:01 PM FINDINGS: Liver: The liver parenchyma demonstrates diffusely decreased attenuation, suggesting fatty infiltration. Gallbladder and bile ducts: There has been a cholecystectomy. There is no biliary ductal dilatation. Pancreas: Normal. No ductal dilation. Spleen: Normal. No splenomegaly. Adrenal glands: Normal. No mass. Kidneys and ureters: No renal or ureteral stones are identified. There is no hydronephrosis or hydroureter. Stomach and bowel: There are scattered distal colonic diverticula without evidence for acute diverticulitis. There is no evidence of small or large bowel inflammation. There is no evidence for bowel obstruction. Appendix: The appendix is well visualized and appears normal. Intraperitoneal space: There is increased tiny amount of fluid in the pelvis, likely physiologic. Vasculature: Unremarkable. No abdominal aortic aneurysm. Lymph nodes: Unremarkable. No enlarged lymph nodes. Urinary bladder: Unremarkable as visualized. Reproductive: There has been a hysterectomy. Bones/joints: Unremarkable. No acute fracture. Soft tissues: Unremarkable. IMPRESSION: 1. No urinary tract stones identified. No evidence of urinary tract obstruction. 2. Hepatic steatosis. 3. Scattered distal colonic diverticula without evidence of diverticulitis. 4. Status post cholecystectomy and hysterectomy. Dictated and Authenticated by: Otis Reynoso MD. Ordering:FEI Puente MD
--- NOTE | 2020-06-13 18:30 | NUR.NOTE ---
Referral to Care Management to help get patient appt with [facility] for chronic migratory abd pain.Nursing Note:
== END 2020-06-13 18:38 | disposition home or self-care (01) ==
PROVIDERS: Emergency Provider Physician Assistant; PCP Nurse Practitioner
DX: R31.9 Hematuria, unspecified (principal); R10.9 Unspecified abdominal pain
CPT/HCPCS: 80053; 96361; 96374; 99284; 74176; 81003; 81015; 85025; 99283; J2405

== ENCOUNTER 2020-07-30 13:46 | Emergency (ER) | payer MEDICAID, SELFPAY ==
[2020-07-30 13:50] VITALS: BP 126/86; PULSE 87; RESP 16; TEMP 36.7; O2SAT 97
--- NOTE | 2020-07-30 14:00 | DI.US_ITS ---
Exam(s) US RENAL EXAM: US RENAL CLINICAL HISTORY: left flank pain TECHNIQUE: Ultrasound of both kidneys performed using standard protocol. COMPARISON: US US PELVIS TRANSVAGINAL from 06/08/[address] RENAL COLIC WO from 06/13/2020 FINDINGS: RIGHT KIDNEY: Measures 11 cm in length. No cysts evident. Normal cortical thickness and corticomedullary differenti ation .No solid masses No intrarenal calculi nor hydronephrosis. LEFT KIDNEY: Measures 12 cm in length. No cysts evident. Normal cortical thickness and corticomedullary different iaion. No solids masses. No intrarenal calculi nor hydonephrosis. URINARY BLADDER: Volume = 114 cc. Patient did not feel that she needed to void. Prevoid volume is 114 cc Postvoid volume is cc No evidence of bladder mass nor diverticuli. Ureterovesical jets: Both identified and appear symmetrical IMPRESSION: 1. No significant ultrasound findings in the kidneys. 2. No obvious focal abnormality seen in the urinary bladder. DATA REPOSITORY:
--- NOTE | 2020-07-30 14:05 | ED.GENADUL_ITS ---
Discharge Plan Disposition Patient Disposition: AGAINST MEDICAL ADVICE Condition: Stable Discharge Details Clinical Impression: Acute left-sided back pain Primary Care Provider: Kathryn Nichole ED Provider: Austin Quan Home Meds and New Rx's Prescriptions: Continued norgestimate-ethinyl estradiol [Sprintec (28)] 0.25-35 mg-mcg tablet 1 tab PO DAILY Qty: 84 RF: 0 diclofenac potassium [Cataflam] 50 mg tablet 50 mg PO BID PRN (Reason: pain) Qty: 20 RF: 0 trazodone 100 mg tablet 100 mg PO HS Qty: 90 RF: 3 sertraline 50 mg tablet 50 mg PO HS Qty: 90 RF: 3 acetaminophen [Tylenol] 325 mg Capsule 650 mg PO PRN PRNRF: 0 ibuprofen 800 mg tablet 800 mg PO Q8H PRN (Reason: pain) Qty: 30 RF: 1 Discharge Instructions Additional Instructions: your blood work and ultrasound did not show any concerning findings you chose to leave prior to giving a urine sample to evaluate for a kidney infection if you change your mind or you have fevers, persistent vomit or feel more ill return to the emergency department follow up with your primary care provider as soon as possible especially if symptoms continue Medical Decision Making 34 yo female with history of prior hysterectomy, reported kidney stones though has had [address]'s over the past few years without showing a kidney stone, comes in with left back pain she localizes to the cva area. Denies vomit, fevers, chills, dysuria, abdomen pain. She is in no distress on exam. She has no abdomen tenderness. no saddle anesthesia with normal strength in the legs and she has normal sensation in the legs. No pain with percussion of the right cva but is tender in the left cva. No chest pain or dyspnea. This could be musculoskeletal as she has had repeated negative imaging in the past though will obtain ua to evaluate for possible pyelo though appears well without fever or chills so doubt sepsis. Will obtain renal ultrasound given numerous prior ct imaging. Given lack of abdomen tenderness on exam doubt surgical pathology such as appendicitis, small bowel obstruction, mesenteric ischemia and do not feel ct abd/pelvis indicated at this time. No pleuritic chest pain, dyspnea, evidence of dvt on exam and no hypoxia or tachycardia so doubt PE. She has multiple medication allergies and concern for how often she has had opiates in the past, will see if fluids alone improve her pain and zofran for her nausea. She has no lower back pain and no saddle anesthesia and no findings on history or exam to suggest spinal epidural abscess or cauda equina labs are unremarkable and ultrasound shows no significant abnormalities, no hydro. Mild improvement with fluids and zofran. She still has not been able to provide a urinalysis. I did discuss her multiple pain medicine allergies and given reassuring ultrasound and exam did not feel comfortable administering opiates. Discussed this could be musculoskeletal and offered muscle relaxers but she declined. Will wait until she can provide a urine sample patient is refusing to stay to have urine sample to evaluate for pyelo and reassessment to determine need for further imaging such as cat scan. She is de clining to stay and understands risks of leaving if entities such as pyelonephritis aren't diagnosed early including sepsis leading to and permanent disability. She has the capacity to make her own decisions and understands these risks. She still requests to go home. She is leaving against my medical advise. She understands she can always return if she changes her mind and to follow up with pcp if she chooses not to return here. Differential Diagnosis Differential Diagnosis: pyelo, muscle spasm, kidney stone Medical Records Medical records reviewed: Yes I reviewed the patient's medical records. Imaging Data Radiologic Study: Attestation: I personally reviewed and interpreted this imaging study as follows: Imaging: Ultrasound Radiologist's impression: no acute findings, no hydroneprhosis Lab Data Lab results reviewed: Yes I reviewed the patient's lab results. HPI General Mode of arrival: ambulatory . Date/Time Provider Initiated Documentation: 07/30/20 13:47 . Limitations to Documentation: no limitations . Information obtained by: patient . History of Present Illness 34 year old F presents to the emergency department with the chief complaint of left cva area pain, described as moderate, Quality is described as aching, and is localized to the back. Patient reports no radiation. Patient started experiencing this hour(s) (6) and it has been constant. No relieving factors improve symptom(s), No exacerbating factors reported . Patient notes other (nausea). Patient did receive the following treatments prior to arrival, NSAID Related Data Home Medications Medication Instructions Recorded Confirmed acetaminophen [Tylenol] 650 mg PO PRN PRN 03/20/19 07/30/20 ibuprofen 800 mg PO Q8H PRN #30 tab 02/27/20 07/30/20 trazodone 100 mg tablet 100 mg PO HS #90 tab 03/26/20 07/30/20 sertraline 50 mg tablet 50 mg PO HS #90 tab 04/15/20 07/30/20 diclofenac potassium 50 mg tablet 50 mg PO BID PRN #20 tab 06/11/20 07/30/20 norgestimate 0.25 mg-ethinyl 1 tab PO DAILY #84 tab 06/11/20 07/30/20 estradiol 35 mcg tablet Previous Rx's Medication Instructions Recorded ibuprofen 800 mg PO Q8H PRN #30 tab 02/27/20 trazodone 100 mg tablet 100 mg PO HS #90 tab 03/26/20 sertraline 50 mg tablet 50 mg PO HS #90 tab 04/15/20 diclofenac potassium 50 mg tablet 50 mg PO BID PRN #20 tab 06/11/20 norgestimate 0.25 mg-ethinyl 1 tab PO DAILY #84 tab 06/11/20 estradiol 35 mcg tablet Allergies Allergy/AdvReac Type Severity Reaction Status Date / Time cephalexin [Cephalexin] AdvReac Severe Abdominal Verified 07/30/20 13:53 Cramps sulfamethoxazole AdvReac Severe Nausea and Verified 07/30/20 13:53 [From Bactrim] vomiting trimethoprim [From Bactrim] AdvReac Severe Nausea and Verified 07/30/20 13:53 vomiting vancomycin AdvReac Severe diarrhea, Verified 07/30/20 13:53 redness acetaminophen AdvReac Intermediate Other (See Verified 07/30/20 13:53 Comment) Cephalosporins AdvReac Intermediate Diarrhea Verified 07/30/20 13:53 codeine phosphate AdvReac Intermediate Vomiting Verified 07/30/20 13:53 [From Tylenol-Codeine #3] ketorolac AdvReac Intermediate Cramping/vo Verified 07/30/20 13:53 mitting oxycodone AdvReac Intermediate Nausea/vomi Verified 07/30/20 13:53 tting tramadol AdvReac Intermediate Diarrhea Verified 07/30/20 13:53 General Stated Complaint: Abd Prob HALINA: 3 Review of Systems All systems reviewed & are unremarkable except as noted in HPI and below Constitutional Constitutional: Denies chills, Denies fever(s) and Denies weakness Cardiovascular Cardiovascular: Denies chest pain and Denies dyspnea Respiratory Respiratory: Denies cough and Denies dyspnea Gastrointestinal Gastrointestinal: Denies abdominal pain, Denies nausea and Denies vomiting Genitourinary Genitourinary: Denies dysuria Neurologic Neurologic: Denies weakness Psychiatric Psychiatric: Denies depression PFSH Medical History Abnormal uterine bleeding Anemia Anxiety BMI 32.0-32.9,adult Depression 2012 Seen in ED with SI. Referred to counselor. Endometriosis of pelvis (~2009) Stage1. Hepatic steatosis Hepatomegaly History of renal calculi Kidney stones Lymphedema lower left leg, pt. states its permanent Pain in pelvis Patellofemoral dysfunction of left knee Right upper quadrant abdominal pain (12/15/16) RLQ abdominal pain Vitamin D deficiency Vulvodynia Surgical History Cholecystectomy (12/28/16) Diagnostic Laproscopy (03/03/10) Stage I endometriosis EGD - MAC Extracorporeal shock wave lithotripsy Hx of hand surgery L hand, pt. reports nerves were fixed S/P laparoscopic assisted vaginal hysterectomy (LAVH) Status post endovenous radiofrequency ablation (RFA) of saphenous vein for venous insufficiency 09/06/2018 wisdom teeth extraction Family History Mother Diabetes Heart disease Hyperlipidemia Father Colon cancer Heart disease Hyperlipidemia Sister Hyperlipidemia Grandfather Diabetes Grandfather Diabetes Hyperlipidemia Asthma Grandmother Diabetes Personal history of malignant neoplasm Breast Heart disease Hyperlipidemia Grandmother No problems noted. Social History Smoking/Tobacco Use Status: Current every day Tobacco Type: cigarettes Smoking risk assessment performed?: Yes Alcohol Intake: never Drug use: Rarely Substance use type: marijuana Do you feel safe at home: Yes Do you feel safe in your relationship?: Yes Exam Const General: no acute distress Orientation: alert HENMT Head: normal to inspection Ears: external ears normal General nose exam: external nose normal Mouth: moist mucous membranes Eyes General: appearance normal, both eyes and all related structures Neck Neck: normal visual inspection Resp Effort & Inspection: normal respiratory effort and able to speak in complete sentences Cardio Rate: regular rate Back/Spine/Pelvis Back: CVA tenderness Skin General skin exam: no rashes or lesions noted Neuro General: patient alert and patient oriented x3 Extrem General: normal to inspection Psych Mental Status: mental status grossly normal Course Vital Signs Vital signs: Vital Signs Temperature 36.7 C 07/30/20 13:50 Pulse 87 07/30/20 13:50 Respiratory Rate 16 07/30/20 13:50 Blood Pressure 126/86 07/30/20 13:50 Pulse Oximetry 97 07/30/20 13:50 Temperature 36.7 C 07/30/20 13:50 Temperature Source Temporal Artery Scan 07/30/20 13:50 Pulse 87 07/30/20 13:50 Respiratory Rate 16 07/30/20 13:50 Respiratory Effort 07/30/20 13:52 Blood Pressure 126/86 07/30/20 13:50 Blood Pressure Position Supine 07/30/20 13:50 Pulse Oximetry 97 07/30/20 13:50 Oxygen Delivery Method Room Air 07/30/20 13:50 Oxygen Flow Rate 0 07/30/20 13:50
[2020-07-30] MEDS: Ondansetron 4 MG/2 ML VIAL IVP (14:07)
[2020-07-30] MEDS: Normal Saline 1,000 ML 1000 ML IV (14:07)
[2020-07-30 14:19] LABS: Abs Immature Grans 0.03 10^3/uL (0.0-0.06); Absolute Basophil Count 0.06 10^3/uL (0.0-0.2); Absolute Eosinophil Count 0.07 10^3/uL (0.0-0.7); Absolute Monocyte Count 0.58 10^3/uL (0.1-0.8); Absolute Neutrophil Count 5.68 10^3/uL (1.2-6.7); Basophils % 0.7; Eosinophils % 0.8; HCT 44.7 % (36.0-46.0); HGB 15.2 g/dL (11.2-15.7); Immature Grans % 0.3; Lymphocytes % 27.2; Monocytes % 6.6; Neutrophils % 64.4; Nucleated RBC 0 %; Platelet Count 231 10^3/uL (130-400); RBC 4.61 10^6/uL (3.93-5.22); RDW 11.9 % (11.7-14.6); RDW-SD 42.5 fL; WBC 8.82 10^3/uL (4.4-10.8)
--- NOTE | 2020-07-30 14:30 | NUR.NOTE ---
Nursing Note: pt requesting pain medication. ER MD aware. no new orders at this time. sts will wait for result of US.
[2020-07-30 14:34] LABS: ALT 16 U/L (14-59); AST 9 U/L (15-37); Albumin 3.9 g/dL (3.4-5.0); Alkaline Phosphatase 90 U/L (46-116); Anion Gap 9.2 mmol/L (3-11); BUN 10 mg/dL (7-18); Bilirubin, Direct 0.1 mg/dL (0.0-0.2); Bilirubin, Total 0.2 mg/dL (0.2-1.0); CO2 24.8 mmol/L (21.0-32.0); CREATININE 0.7 mg/dL (0.55-1.02); Calcium 8.9 mg/dL (8.5-10.1); Chloride 105 mmol/L (98-107); Glucose 95 mg/dL (74-106); Lipase 86 U/L (73-393); Potassium 4.2 mmol/L (3.5-5.1); Sodium 139 mmol/L (136-145); Total Protein 7.5 g/dL (6.4-8.2)
[2020-07-30 15:37] VITALS: BP 138/75; PULSE 89; RESP 16; TEMP 36.7; O2SAT 98
== END 2020-07-30 17:09 | disposition left against medical advice (07) ==
PROVIDERS: Emergency Provider Emergency Medicine; PCP Nurse Practitioner
DX: M54.9 Dorsalgia, unspecified (principal); Z53.20 Procedure and treatment not carried out because of patient's decision for unspecified reasons; R11.0 Nausea
CPT/HCPCS: 76770; 80053; 83690; 96361; 96374; 99284; 81003; 82248; 85025; 99283; J2405

== ENCOUNTER 2020-08-04 18:24 | Outpatient (REF) | payer MEDICAID, SELFPAY ==
[2020-08-04 13:31] LABS: *AMPHETAMINES SCREEN URINE Negative (Negative); *BARBITURATES SCREEN URINE Negative (Negative); *BENZODIAZEPINES SCREEN URINE Negative (Negative); Cannabinoids THC Negative (Negative); Cocaine Screen,Urine Negative (Negative); METHADONE URINE SCREEN Negative (Negative); OPIATES URINE SCREEN Negative (Negative)
[2020-08-04 13:35] LABS: Tricyclic Antidepressants Negative (Negative)
== END 2020-08-04 18:25 | disposition home or self-care (01) ==
LOC: LBN 18:24
PROVIDERS: PCP Nurse Practitioner; Visit Provider Nurse Practitioner
DX: R31.9 Hematuria, unspecified (principal); R10.31 Right lower quadrant pain; R30.0 Dysuria; G89.29 Other chronic pain
CPT/HCPCS: 80307

== ENCOUNTER 2020-10-22 04:15 | Outpatient (CLI) | payer MEDICAID, SELFPAY ==
[2020-10-22 09:28] LABS: TSH (W/Ref FT4) 3.29 uIU/mL (0.36-3.74)
== END 2020-10-22 04:16 | disposition home or self-care (01) ==
LOC: LBO 04:15
PROVIDERS: PCP Nurse Practitioner; Visit Provider Nurse Practitioner
DX: N64.52 Nipple discharge (principal); F41.9 Anxiety disorder, unspecified
CPT/HCPCS: 36415; 84443

== ENCOUNTER 2020-11-09 19:14 | Emergency (ER) | payer MEDICAID, SELFPAY ==
[2020-11-09 19:23] VITALS: BP 159/65; PULSE 79; RESP 18; TEMP 36.9; O2SAT 97
--- NOTE | 2020-11-09 19:30 | DI.CT_ITS ---
Exam(s) CT RENAL COLIC WO EXAM: CT RENAL COLIC WO CLINICAL HISTORY: Left sided flank pain, Hx Kidney stones. TECHNIQUE: Imaging Protocol: Axial computed tomography images with coronal and sagittal reformatted images were created and reviewed. CONTRAST MATERIAL: Noncontrast COMPARISON: CT CT RENAL COLIC WO from 06/13/2020 FINDINGS: ABDOMEN: Lung Bases: Normal where visualized. Liver: Enlarged. Fatty infiltration. No measurable mass. Gallbladder and biliary tract: Status post cholecystectomy. No radiodense calculus or dilation. Pancreas: Normal density, no calcifications or inflammatory process. Spleen: Normal. Kidneys: Normal size, contour and axis. Mild left hydronephrosis secondary to a 3 millimeter stone a t the ureterovesical junction. No additional urinary tract calculi. No masses seen. Adrenal glands: No masses seen. Abdominal Aorta: Abdominal portion non-dilated. PELVIS: Bladder: Symmetric distention, no gross wall thickening. Bowel: Scattered mild diverticulosis. No obstruction or bowel wall thickening. Peritoneal cavity: No ascites, collection or mesenteric inflammatory response. Reproductive: Status post hysterectomy. Bones: Partial sacralization of the L5 vertebral body with sacralization of the right right transvers e process. IMPRESSION: Mild left hydronephrosis secondary to a 3 millimeter stone at the ureterovesical junction. RADIATION DOSE DELIVERED: 898.44mGy.cm Total DLP DATA REPOSITORY: All CT scans at this facility are submitted to the National Radiology Data Registry (NRDR) Dose Index Registry (DIR) with the [employer] (ACR). RADIATION OPTIMIZATION: All CT scans at this facility use at least one of these dose optimization te chniques: automated exposure control; mA and/or kV adjustment per patient size (includes targeted exa ms where dose is matched to clinical indication); or iterative reconstruction.
[2020-11-09 19:41] LABS: Bilirubin Negative (Negative); Blood Large (Negative); Clarity Cloudy (Clear); Glucose Negative (Negative); Ketones Negative (Negative); Leukocyte Esterase Negative (Negative); Nitrite Negative (Negative); Specific Gravity >= 1.030 (1.005-1.025); Urobilinogen 0.2 EU/dL (Up TO 0.2); pH 5.5 (5-8)
--- NOTE | 2020-11-09 19:42 | ED.GENADUL_ITS ---
Discharge Plan Disposition Patient Disposition: HOME Condition: Stable Discharge Details Clinical Impression: Kidney stone on left side Primary Care Provider: Kathryn Nichole ED Provider: Marina Moe Home Meds and New Rx's Prescriptions: New tamsulosin 0.4 mg capsule 0.4 mg PO QHS 7 Days Qty: 7 RF: 0 No Action trazodone 100 mg tablet 100 mg PO HS Qty: 90 RF: 3 sertraline 50 mg tablet 50 mg PO HS Qty: 90 RF: 3 acetaminophen [Tylenol] 325 mg Capsule 650 mg PO PRN PRNRF: 0 ibuprofen 800 mg tablet 800 mg PO Q8H PRN (Reason: pain) Qty: 30 RF: 1 Discharge Instructions Instructions: Kidney Stones (ED) Additional Instructions: Strain all urine. If you do pass a stone please bring it with you to your urology follow-up. Take medications as prescribed. Take with food no operating heavy machinery while taking the pain medications. Return or be seen sooner for any worsening pain, fever, unable to urinate or any concerns. Follow up with primary care provider in 3-5 days. Return to ED sooner if any worsening or concerns. Increase oral fluids. Please take Tylenol or Ibuprofen with food every 4-6 hours as needed for pain and swelling. Do not take any extra Tylenol while taking the hydrocodone and Tylenol. Referrals: Sebastián Barnard MD [ [facility] STAFF PHYSICIAN] - 1 week (3 MM Stone Left UVJ) Kathryn Nichole NP [Primary Care Provider] - Discharge Data Discharge Date/Time-TO BE ENTERED AT DEPARTURE: 11/09/20 21:10 Medical Decision Making 35-year-old female presents to the ER with chief complaint of left colicky flank pain which began around 430 this evening. Patient describes acute onset of flank pain associated with nausea. Denies any other associated symptoms no fever no abdominal pain. Does have a history of kidney stones. Did take some ibuprofen prior to arrival with little to no relief. Patient does appear in acute distress and is writhing around in the bed. Labs show white blood cell count of 10.88 which is slightly elevated, CMP is largely unremarkable BUN/creatinine are within normal limits, lipase is 218, urinalysis shows large blood no leukocytes or white blood cell count. Patient was given a total of 50 mcg of fentanyl IV push and Zofran IV as needed for pain control and nausea. CT ABDOMEN PELVIS W 05/13/2020 9:01 PM FINDINGS: Lungs: The visualized portions of the lung bases are normal. Liver: Normal. No mass. Gallbladder and bile ducts: There has been a cholecystectomy. Pancreas: Normal. No ductal dilation. Spleen: Normal. No splenomegaly. Adrenal glands: Normal. No mass. Kidneys and ureters: Mild left hydroureteronephrosis secondary to a 3 mm stone within the left UVJ. Stomach and bowel: There are scattered divertuli thought the large bowel. Appendix: No evidence of appendicitis. Intraperitoneal space: Unremarkable. No free air. No significant fluid collection. Vasculature: Unremarkable. No abdominal aortic aneurysm. Lymph nodes: Borderline enlarged left para-aortic retroperitoneal lymph node measuring 9 mm and several other smaller lymph nodes with surrounding fat stranding most likely reactive, unchanged compared to prior. Urinary bladder: Unremarkable as visualized. Reproductive: Unremarkable as visualized. Bones/joints: Unremarkable. No acute fracture. Soft tissues: Unremarkable. IMPRESSION: 1. Mild left hydroureteronephrosis secondary to a 3 mm stone within the left UVJ. 2. Borderline enlarged left para-aortic retroperitoneal lymph node measuring 9 mm and several other smaller lymph nodes with surrounding fat stranding most likely reactive, unchanged compared to prior. 3. Scattered diverticulosis of the large bowel. Thank you for allowing us to participate in the care of your patient. Dictated and Authenticated by: Alexis Neville MD Discussed CT results with patient and family who verbalized understanding. We will send patient home with a strainer, tamsulosin, and Phenergan. Patient request not to be sent home with Zofran. Will have patient follow-up with urology within the next week if possible. Discussed strict return instructions with patient and family who verbalized understanding. Patient sent home with hydrocodone and Tylenol as well for moderate to severe pain. This text was generated using [email or web address] system, please disregard any oddities of phrase or misspellings. HPI General Mode of arrival: ambulatory . Date/Time Provider Initiated Documentation: 11/09/20 19:16 . Limitations to Documentation: no limitations . Information obtained by: patient and RN notes reviewed . HPI Narrative: 35-year-old female presents to the ER with chief complaint of left colicky flank pain which began around 430 this evening. Patient describes acute onset of flank pain associated with nausea. Denies any other associated symptoms no fever no abdominal pain. Does have a history of kidney stones. Did take some ibuprofen prior to arrival with little to no relief. Patient does appear in acute distress and is writhing around in the bed. Related Data Home Medications Medication Instructions Recorded Confirmed acetaminophen [Tylenol] 650 mg PO PRN PRN 03/20/19 11/09/20 ibuprofen 800 mg PO Q8H PRN #30 tab 02/27/20 11/09/20 trazodone 100 mg tablet 100 mg PO HS #90 tab 03/26/20 11/09/20 sertraline 50 mg tablet 50 mg PO HS #90 tab 04/15/20 11/09/20 tamsulosin 0.4 mg PO QHS 7 Days #7 cap 11/09/20 Previous Rx's Medication Instructions Recorded ibuprofen 800 mg PO Q8H PRN #30 tab 02/27/20 trazodone 100 mg tablet 100 mg PO HS #90 tab 03/26/20 sertraline 50 mg tablet 50 mg PO HS #90 tab 04/15/20 tamsulosin 0.4 mg PO QHS 7 Days #7 cap 11/09/20 Allergies Allergy/AdvReac Type Severity Reaction Status Date / Time cephalexin [Cephalexin] AdvReac Severe Abdominal Verified 11/09/20 19:26 Cramps sulfamethoxazole AdvReac Severe Nausea and Verified 11/09/20 19:26 [From Bactrim] vomiting trimethoprim [From Bactrim] AdvReac Severe Nausea and Verified 11/09/20 19:26 vomiting vancomycin AdvReac Severe diarrhea, Verified 11/09/20 19:26 redness acetaminophen AdvReac Intermediate Other (See Verified 11/09/20 19:26 Comment) Cephalosporins AdvReac Intermediate Diarrhea Verified 11/09/20 19:26 codeine phosphate AdvReac Intermediate Vomiting Verified 11/09/20 19:26 [From Tylenol-Codeine #3] ketorolac AdvReac Intermediate Cramping/vo Verified 11/09/20 19:26 mitting oxycodone AdvReac Intermediate Nausea/vomi Verified 11/09/20 19:26 tting tramadol AdvReac Intermediate Diarrhea Verified 11/09/20 19:26 General Stated Complaint: FlankPain HALINA: 3 Review of Systems All systems reviewed & are unremarkable except as noted in HPI and below Genitourinary Genitourinary: Reports as per HPI and Reports flank pain PFSH Medical History Abnormal uterine bleeding Anemia Anxiety BMI 32.0-32.9,adult Depression 2013 Seen in ED with SI. Referred to counselor. Endometriosis of pelvis (~2009) Stage1. Hepatic steatosis Hepatomegaly History of renal calculi Kidney stones Lymphedema lower left leg, pt. 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 reports nerves were fixed S/P laparoscopic assisted vaginal hysterectomy (LAVH) Status post endovenous radiofrequency ablation (RFA) of saphenous vein for venous insufficiency 09/06/2018 wisdom teeth extraction Family History Mother Diabetes Heart disease Hyperlipidemia Father Colon cancer Heart disease Hyperlipidemia Sister Hyperlipidemia Grandfather Diabetes Grandfather Diabetes Hyperlipidemia Asthma Grandmother Diabetes Personal history of malignant neoplasm Breast Heart disease Hyperlipidemia Grandmother No problems noted. Social History Smoking/Tobacco Use Status: Current every day Tobacco Type: cigarettes Smoking risk assessment performed?: Yes Alcohol Intake: never Drug use: Rarely Substance use type: marijuana Do you feel safe at home: Yes Do you feel safe in your relationship?: Yes Exam Narrative Exam Narrative: Constitutional: Alert and oriented x3. Appears stated age. Normal body habitus. Appears uncomfortable. Head: Normocephalic, no trauma. Eyes: Pupils PERRLA, Red reflex noted, EOM's intact. Eyelids symmetrical without lesions, discharge, or swelling. ENT: Bilateral TM's WNL, External ear normal to inspection, no mastoid TTP, swelling, or erythema, Nasal turbinates WNL, no nasal discharge. Normal dentition, Posterior pharynx WNL, no exudate. Chest: RRR, Normal S1, S2, distal pulses intact. Resp: Lungs clear to auscultation bilaterally, no wheezes, rales, or rhonchi. Musculoskeletal: Normal gait, 5/5 strength to all four extremities. Abdomen: Abdomen is soft nondistended nontender to palpation all 4 quadrants. Positive left CVA tenderness. Skin: No suspicious rashes or lesions. Capillary refill less than 2 sec. Neurologic: Cranial nerves II-XII intact. Alert and oriented x 3. DTR's intact. Hematologic/Lymphatic: No ecchymosis, no lymphadenopathy. Course Vital Signs Vital signs: Vital Signs Temperature 36.9 C 11/09/20 19:23 Pulse 79 11/09/20 19:23 Respiratory Rate 18 11/09/20 19:23 Blood Pressure 159/65 H 11/09/20 19:23 Pulse Oximetry 97 11/09/20 19:23 Temperature 36.9 C 11/09/20 19:23 Pulse 79 11/09/20 19:23 Respiratory Rate 18 11/09/20 19:23 Respiratory Effort Non-Labored 11/09/20 19:38 Blood Pressure 159/65 H 11/09/20 19:23 Pulse Oximetry 97 11/09/20 19:23 Pain Level 10 11/09/20 19:40
[2020-11-09 19:46] LABS: Abs Immature Grans 0.04 10^3/uL (0.0-0.06); Absolute Eosinophil Count 0.21 10^3/uL (0.0-0.7); Absolute Lymphocyte Count 2.92 10^3/uL (1.2-3.4); Absolute Monocyte Count 0.58 10^3/uL (0.1-0.8); Absolute Neutrophil Count 7.07 10^3/uL (1.2-6.7); Basophils % 0.6; Eosinophils % 1.9; HCT 41.6 % (36.0-46.0); HGB 14.3 g/dL (11.2-15.7); Immature Grans % 0.4; Lymphocytes % 26.8; MCH 33.1 pg (27.0-33.0); MCHC 34.4 % (32.0-36.0); MCV 96.3 fL (80-95); MPV 10.3 fL (8.0-11.0); Monocytes % 5.3; Nucleated RBC 0 %; Platelet Count 212 10^3/uL (130-400); RBC 4.32 10^6/uL (3.93-5.22); RDW-SD 42.7 fL; WBC 10.88 10^3/uL (4.4-10.8)
[2020-11-09 19:47] LABS: Absolute Basophil Count 0.07 10^3/uL (0.0-0.2)
[2020-11-09 19:53] LABS: Bacteria Negative HPF (Negative); C & S Indicated? No; Casts Negative LPF (Negative); Crystals Few Calcium Oxalate HPF (Negative); Epithelial Cells Few HPF (Negative); Mucus Negative (Negative); RBC >50 HPF (0-2)
[2020-11-09] MEDS: Ondansetron 4 MG/2 ML VIAL IVP (20:03)
[2020-11-09] MEDS: fentaNYL 100 MCG/2 ML VIAL 50 MCG IVP ×2 (20:04→20:59)
[2020-11-09 20:22] LABS: ALT 16 U/L (14-59); AST 10 U/L (15-37); Albumin 3.9 g/dL (3.4-5.0); Alkaline Phosphatase 99 U/L (46-116); Anion Gap 8.6 mmol/L (3-11); BUN 9 mg/dL (7-18); Bilirubin, Total 0.2 mg/dL (0.2-1.0); CO2 28.4 mmol/L (21.0-32.0); CREATININE 0.7 mg/dL (0.55-1.02); Calcium 8.5 mg/dL (8.5-10.1); Chloride 106 mmol/L (98-107); Glucose 101 mg/dL (74-106); Potassium 3.5 mmol/L (3.5-5.1); Sodium 143 mmol/L (136-145); Total Protein 6.7 g/dL (6.4-8.2)
--- NOTE | 2020-11-09 20:29 | DI.VRAD_ITS ---
PROCEDURE INFORMATION: Exam: CT Abdomen And Pelvis Without Contrast Exam date and time: 11/09/2020 8:12 PM Age: 35 years old Clinical indication: Prior surgery; Surgery date: 6+ months; Surgery type: Cholecystectomy, hysterectomy; Patient HX: Left sided flank pain, HX kidney stones TECHNIQUE: Imaging protocol: Computed tomography of the abdomen and pelvis without contrast. Radiation optimization: All CT scans at this facility use at least one of these dose optimization techniques: automated exposure control; mA and/or kV adjustment per patient size (includes targeted exams where dose is matched to clinical indication); or iterative reconstruction. COMPARISON: CT ABDOMEN PELVIS W 05/13/2020 9:01 PM FINDINGS: Lungs: The visualized portions of the lung bases are normal. Liver: Normal. No mass. Gallbladder and bile ducts: There has been a cholecystectomy. Pancreas: Normal. No ductal dilation. Spleen: Normal. No splenomegaly. Adrenal glands: Normal. No mass. Kidneys and ureters: Mild left hydroureteronephrosis secondary to a 3 mm stone within the left UVJ. Stomach and bowel: There are scattered divertuli thought the large bowel. Appendix: No evidence of appendicitis. Intraperitoneal space: Unremarkable. No free air. No significant fluid collection. Vasculature: Unremarkable. No abdominal aortic aneurysm. Lymph nodes: Borderline enlarged left para-aortic retroperitoneal lymph node measuring 9 mm and several other smaller lymph nodes with surrounding fat stranding most likely reactive, unchanged compared to prior. Urinary bladder: Unremarkable as visualized. Reproductive: Unremarkable as visualized. Bones/joints: Unremarkable. No acute fracture. Soft tissues: Unremarkable. IMPRESSION: 1. Mild left hydroureteronephrosis secondary to a 3 mm stone within the left UVJ. 2. Borderline enlarged left para-aortic retroperitoneal lymph node measuring 9 mm and several other smaller lymph nodes with surrounding fat stranding most likely reactive, unchanged compared to prior. 3. Scattered diverticulosis of the large bowel. Dictated and Authenticated by: Alexis Neville MD. Ordering:TAMMY Gray MD
--- NOTE | 2020-11-09 20:44 | NUR.NOTE ---
Nursing Notereferal to urology for kidney stones 11/09/20:
[2020-11-09 20:52] LABS: Lipase 218 U/L (73-393)
[2020-11-09] MEDS: Tamsulosin 0.4 MG CAPCR PO (20:59)
[2020-11-09 21:02] VITALS: BP 117/70; PULSE 60; RESP 18; O2SAT 97
== END 2020-11-09 21:10 | disposition home or self-care (01) ==
PROVIDERS: Emergency Provider Registered Nurse Emergency; PCP Nurse Practitioner
DX: N20.0 Calculus of kidney (principal); Z87.442 Personal history of urinary calculi
CPT/HCPCS: 80053; 83690; 96374; 96375; 96376; 99284; 74176; 81003; 81015; 85025; J2405; J3010

== ENCOUNTER 2020-11-11 19:43 | Emergency (ER) | payer MEDICAID, SELFPAY ==
[2020-11-11] VITALS (9 sets, daily range): BP systolic 115–139; BP diastolic 52–84; PULSE 62–88; RESP 16–20; TEMP 36.7; O2SAT 93–97
[2020-11-11] MEDS: Normal Saline 1,000 ML 1000 ML IV (20:12)
[2020-11-11 20:19] LABS: Bilirubin Negative (Negative); Blood Moderate (Negative); Clarity Sl Cloudy (Clear); Glucose Negative (Negative); Ketones Negative (Negative); Leukocyte Esterase Negative (Negative); Nitrite Negative (Negative); Specific Gravity 1.025 (1.005-1.025); Urobilinogen 0.2 EU/dL (Up TO 0.2); pH 6.5 (5-8)
[2020-11-11 20:21] LABS: Abs Immature Grans 0.04 10^3/uL (0.0-0.06); Absolute Basophil Count 0.03 10^3/uL (0.0-0.2); Absolute Eosinophil Count 0.12 10^3/uL (0.0-0.7); Absolute Lymphocyte Count 2.34 10^3/uL (1.2-3.4); Absolute Monocyte Count 0.47 10^3/uL (0.1-0.8); Absolute Neutrophil Count 6.98 10^3/uL (1.2-6.7); Basophils % 0.3; Eosinophils % 1.2; HCT 41.1 % (36.0-46.0); HGB 14.1 g/dL (11.2-15.7); Immature Grans % 0.4; Lymphocytes % 23.4; MCH 32.4 pg (27.0-33.0); MCHC 34.3 % (32.0-36.0); MCV 94.5 fL (80-95); MPV 10.3 fL (8.0-11.0); Monocytes % 4.7; Nucleated RBC 0 %; Platelet Count 218 10^3/uL (130-400); RBC 4.35 10^6/uL (3.93-5.22); RDW-SD 42.3 fL; WBC 9.98 10^3/uL (4.4-10.8)
--- NOTE | 2020-11-11 20:23 | W.ED.GENAD ---
Discharge Plan Disposition Patient Disposition: HOME Condition: Stable Discharge Details Clinical Impression: Flank pain Primary Care Provider: Kathryn Nichole ED Provider: Aleksandr Green Home Meds and New Rx's Prescriptions: Continued trazodone 100 mg tablet 100 mg PO HS Qty: 90 RF: 3 sertraline 50 mg tablet 50 mg PO HS Qty: 90 RF: 3 tamsulosin 0.4 mg capsule 0.4 mg PO QHS 7 Days Qty: 7 RF: 0 acetaminophen [Tylenol] 325 mg Capsule 650 mg PO PRN PRNRF: 0 ibuprofen 800 mg tablet 800 mg PO Q8H PRN (Reason: pain) Qty: 30 RF: 1 No Action sulindac 200 mg tablet 200 mg PO BID Qty: 30 RF: 0 Discharge Instructions Instructions: Flank Pain (ED) Additional Instructions: At this time your blood work is normal, urinalysis reveals hematuria. Your flank pain is presumptively from your kidney stone but as we discussed we do not have CT imaging this evening to prove that. Your pain is now much improved with IV pain medication and I am sending you home with a take-home pack of pain medication, this medication may cause drowsiness and/or constipation, you may want to take [id number] stool softeners while taking this medication. As we discussed, if symptoms persist tomorrow I recommend coming back to the ER for reevaluation, ultrasound and/or CT imaging if indicated. Otherwise I recommend contacting your primary care provider to discuss your ongoing discomfort and need for pain control. Lastly I would contact your urology team to discuss your ongoing symptoms and potential need to be seen sooner if at all possible Discharge Data Discharge Date/Time-TO BE ENTERED AT DEPARTURE: 11/11/20 21:43 Medical Decision Making 35-year-old female diagnosed via CT with mild hydronephrosis and left-sided 3 mm stone presents to the ER reporting that she ran out of her hydrocodone and pain returned. She appears uncomfortable but nontoxic, no acute distress. Unfortunately is after hours and we do not have ultrasound and our CT is down for the next 5 hours for routine maintenance. Given the most recent CT, stone is small, should pass. Plan to obtain IV access, give IV fluid, Zofran, obtain routine laboratory values and given her multiple allergies, will give a single dose of Dilaudid. Laboratory values are unremarkable for obvious emergent process. Urinalysis reveals hematuria which appears to be chronic in nature. No evidence of infection Discussed results with patient. She reports that she was feeling improvement with the IV Dilaudid but her pain is not resolved to where she feels as though she can safely be discharged home. She does request additional pain medication. At this time given her GFR is unremarkable, abdomen is nonacute, plan is to give a single dose of 0.5 mg IV Dilaudid, send her home with a take-home pack of hydrocodone, and if she is not improving tomorrow then she can return to the ER for evaluation and CT imaging to further evaluate the stone. Patient is comfortable this plan and has no additional questions or concerns. We also discussed importance of contacting your primary care provider as they will need to provide additional narcotic medication if indicated, as well as contacting her urology team to see if they can expedite her appointment. Medical Records Medical records reviewed: Yes I reviewed the patient's medical records. Lab Data Lab results reviewed: Yes I reviewed the patient's lab results. HPI General Mode of arrival: ambulatory. Date/Time Provider Initiated Documentation: 11/11/20 19:43. Limitations to Documentation: no limitations. Information obtained by: patient. HPI Narrative: This is a 35-year-old female, past medical history of renal stone, smoker, anxiety, anemia, depression, presenting to the ER for continuation of left-sided flank pain ongoing for the past few days. Seen in the ER 2 days ago, diagnosed with renal stone and mild hydro via CT. Patient reports that she ran out of her hydrocodone and her pain has returned. Reports mild hematuria, dysuria, nausea. She has Flomax and Zofran at home that she has been able to take. She reports that she cannot see urology until 07 December. Denies recent illness or trauma. Reports that her pain is primarily in the left flank and back, really no abdominal pain. Denies vaginal bleeding or discharge. Related Data Home Medications Medication Instructions Recorded Confirmed acetaminophen [Tylenol] 650 mg PO PRN PRN 03/20/19 11/13/20 ibuprofen 800 mg PO Q8H PRN #30 tab 02/27/20 11/13/20 trazodone 100 mg tablet 100 mg PO HS #90 tab 03/26/20 11/13/20 sertraline 50 mg tablet 50 mg PO HS #90 tab 04/15/20 11/13/20 tamsulosin 0.4 mg PO QHS 7 Days #7 cap 11/09/20 11/13/20 sulindac 200 mg tablet 200 mg PO BID #30 tab 11/13/20 11/13/20 Previous Rx's Medication Instructions Recorded ibuprofen 800 mg PO Q8H PRN #30 tab 02/27/20 trazodone 100 mg tablet 100 mg PO HS #90 tab 03/26/20 sertraline 50 mg tablet 50 mg PO HS #90 tab 04/15/20 tamsulosin 0.4 mg PO QHS 7 Days #7 cap 11/09/20 sulindac 200 mg tablet 200 mg PO BID #30 tab 11/13/20 Allergies Allergy/AdvReac Type Severity Reaction Status Date / Time cephalexin [Cephalexin] AdvReac Severe Abdominal Verified 11/13/20 17:15 Cramps sulfamethoxazole AdvReac Severe Nausea and Verified 11/13/20 17:15 [From Bactrim] vomiting trimethoprim [From Bactrim] AdvReac Severe Nausea and Verified 11/13/20 17:15 vomiting vancomycin AdvReac Severe diarrhea, Verified 11/13/20 17:15 redness acetaminophen AdvReac Intermediate Other (See Verified 11/13/20 17:15 Comment) Cephalosporins AdvReac Intermediate Diarrhea Verified 11/13/20 17:15 codeine phosphate AdvReac Intermediate Vomiting Verified 11/13/20 17:15 [From Tylenol-Codeine #3] ketorolac AdvReac Intermediate Cramping/vo Verified 11/13/20 17:15 mitting oxycodone AdvReac Intermediate Nausea/vomi Verified 11/13/20 17:15 tting tramadol AdvReac Intermediate Diarrhea Verified 11/13/20 17:15 General Stated Complaint: FlankPain HALINA: 3 Review of Systems Constitutional Constitutional: Denies fever(s) Cardiovascular Cardiovascular: Denies chest pain and Denies dyspnea Respiratory Respiratory: Denies cough and Denies dyspnea Gastrointestinal Gastrointestinal: Reports abdominal pain (Left flank), Reports nausea and Denies vomiting Genitourinary Genitourinary: Reports hematuria, Reports dysuria and Denies vaginal discharge Musculoskeletal Musculoskeletal: Reports back pain Integumentary/Breasts Skin/Breast: Denies rash [facility] Medical History Abnormal uterine bleeding Anemia Anxiety BMI 32.0-32.9,adult Depression 2013 Seen in ED with SI. Referred to counselor. Endometriosis of pelvis (~2009) Stage1. Hepatic steatosis Hepatomegaly History of renal calculi Kidney stones Lymphedema lower left leg, pt. 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 reports nerves were fixed S/P laparoscopic assisted vaginal hysterectomy (LAVH) Status post endovenous radiofrequency ablation (RFA) of saphenous vein for venous insufficiency 09/06/2018 wisdom teeth extraction Family History Mother Diabetes Heart disease Hyperlipidemia Father Colon cancer Heart disease Hyperlipidemia Sister Hyperlipidemia Grandfather Diabetes Grandfather Diabetes Hyperlipidemia Asthma Grandmother Diabetes Personal history of malignant neoplasm Breast Heart disease Hyperlipidemia Grandmother No problems noted. Social History Smoking/Tobacco Use Status: Current every day Tobacco Type: cigarettes Smoking risk assessment performed?: Yes Alcohol Intake: never Drug use: Occasionally Substance use type: marijuana Do you feel safe at home: Yes Do you feel safe in your relationship?: Yes Exam Const General: cooperative, healthy appearing and no acute distress Orientation: alert and awake [facility] Head: normal to inspection, normocephalic and atraumatic Mouth: moist mucous membranes Eyes General: appearance normal, both eyes and all related structures Conjunctivae: conjunctivae normal Neck Neck: normal visual inspection, full ROM, trachea midline and supple Resp Effort & Inspection: normal respiratory effort and able to speak in complete sentences Auscultation: clear to auscultation bilaterally Cardio Rate: regular rate Rhythm: regular rhythm GI Inspection: normal to inspection Palpation: soft, not firm, no guarding, no pulsatile masses and tender (Diffuse mild left flank) Auscultation: normal bowel sounds Back/Spine/Pelvis Back: no CVA tenderness and back tenderness (Diffuse mild left lumbar) Skin General skin exam: no rashes or lesions noted Neuro General: patient alert, patient awake, moves all extremities and no focal motor deficits Cognition: normal cognition Speech: speech normal Gait: normal gait Sensory Exam: no sensory deficits noted Psych Appearance: grossly normal Mental Status: mental status grossly normal Course Vital Signs Vital signs: Vital Signs Temperature 36.7 C 11/11/20 19:48 Pulse 88 11/11/20 19:48 Respiratory Rate 20 11/11/20 19:48 Blood Pressure 139/84 11/11/20 19:48 Pulse Oximetry 97 11/11/20 19:48 Temperature 36.7 C 11/11/20 19:48 Temperature Source Temporal Artery Scan 11/11/20 19:48 Pulse 88 11/11/20 19:48 Respiratory Rate 20 11/11/20 19:48 Respiratory Effort Non-Labored 11/11/20 19:54 Blood Pressure 139/84 11/11/20 19:48 Blood Pressure Position Sitting 11/11/20 19:48 Pulse Oximetry 97 11/11/20 19:48 Oxygen Delivery Method Room Air 11/11/20 19:48 Oxygen Flow Rate 0 11/11/20 19:48 Pain Level 10 11/11/20 19:48 Lab/Test Results Lab/Test Results: Laboratory Tests Range/Units 11/11/20 20:09 Urine Color (Yellow) Yellow Urine Clarity (Clear) Sl Cloudy Urine pH (5-8) 6.5 Ur Specific [place] (1.005-1.025) 1.025 Urine Protein (Negative) mg/dL Negative Urine Ketones (Negative) mg/dL Negative Urine Blood (Negative) Moderate H Urine Nitrite (Negative) Negative Urine Bilirubin (Negative) Negative Urine Urobilinogen (Up TO 0.2) EU/dL 0.2 Ur Leukocyte Esterase (Negative) Negative Urine Glucose (Negative) mg/dL Negative
[2020-11-11 20:32] LABS: Bacteria Many HPF (Negative); C & S Indicated? Yes; Crystals Negative HPF (Negative); Epithelial Cells Moderate HPF (Negative); Mucus Negative (Negative); RBC >50 HPF (0-2); WBC 0-2 HPF (0-5)
[2020-11-11] MEDS: Ondansetron 4 MG/2 ML VIAL IVP (20:34)
[2020-11-11] MEDS: HYDROmorphone 2 MG/ML VIAL 1 MG IVP (20:34)
[2020-11-11 20:40] LABS: ALT 17 U/L (14-59); AST 7 U/L (15-37); Albumin 3.5 g/dL (3.4-5.0); Alkaline Phosphatase 86 U/L (46-116); Anion Gap 7.5 mmol/L (3-11); BUN 9 mg/dL (7-18); Bilirubin, Total 0.2 mg/dL (0.2-1.0); CO2 27.5 mmol/L (21.0-32.0); CREATININE 0.7 mg/dL (0.55-1.02); Calcium 8.3 mg/dL (8.5-10.1); Chloride 107 mmol/L (98-107); Glucose 95 mg/dL (74-106); Potassium 3.7 mmol/L (3.5-5.1); Sodium 142 mmol/L (136-145); Total Protein 6.7 g/dL (6.4-8.2)
[2020-11-11] MEDS: HYDROmorphone 2 MG/ML VIAL 0.5 MG IVP (21:12)
== END 2020-11-11 21:43 | disposition home or self-care (01) ==
PROVIDERS: Emergency Provider Physician Assistant; PCP Nurse Practitioner
DX: R10.9 Unspecified abdominal pain (principal); R31.9 Hematuria, unspecified; N20.0 Calculus of kidney
CPT/HCPCS: 36415; 80053; 96361; 96374; 96375; 96376; 99284; 81003; 81015; 85025; 87086; J2405

== ENCOUNTER 2020-11-13 17:07 | Emergency (ER) | payer MEDICAID, SELFPAY ==
--- NOTE | 2020-11-13 17:00 | DI.CT_ITS ---
Exam(s) CT RENAL COLIC WO EXAM: CT RENAL COLIC WO CLINICAL HISTORY: L flank pain, hx of stone. TECHNIQUE: Imaging Protocol: Axial computed tomography images with coronal and sagittal reformatted images were created and reviewed. COMPARISON: CT CT RENAL COLIC WO from 11/09/2020 FINDINGS: ABDOMEN: Lung Bases: Atelectasis in the lung bases. Liver: Diffuse decreased attenuation. The liver measures 18 cm in length. No measurable mass. Gallbladder and biliary tract: Status post cholecystectomy. No biliary ductal dilatation. Pancreas: Normal density, no abnormal calcifications or inflammatory process. Spleen: Normal. Kidneys: Normal size, contour and axis.No radiodense stones or obstructive uropathy. No masses seen. Adrenal glands: No mass is seen. Lymph nodes: Within normal limits. Abdominal Aorta: Abdominal portion non-dilated. PELVIS: Bladder:Symmetric distention, no gross wall thickening. Bowel: No evidence of obstruction. There may be mild wall thickening and small bowel loops in the mi d abdomen. Appendix is unremarkable. There is a diverticulum seen in the ascending colon. There do es appear to be a small hiatal hernia. Peritoneal cavity: No ascites, collection or mesenteric inflammatory response. No free air. Reproductive organs: Status post hysterectomy. Bones: Within normal limits. Soft Tissues: Within normal limits. IMPRESSION: 1. The previously noted left UVJ stone has resolved. No evidence of nephrolithiasis or hydronephrosi s. 2. Question of mild wall thickening in small bowel loops in the mid abdomen. An enteritis may be con sidered. Please correlate clinically. RADIATION DOSE DELIVERED: 873.08mGy.cm Total DLP DATA REPOSITORY: All CT scans at this facility are submitted to the National Radiology Data Registry (NRDR) Dose Index Registry (DIR) with the [employer] (A[employer]). RADIATION OPTIMIZATION: All CT scans at this facility use at least one of these dose optimization te chniques: automated exposure control; mA and/or kV adjustment per patient size (includes targeted exa ms where dose is matched to clinical indication); or iterative reconstruction.
[2020-11-13 17:13] VITALS: BP 130/79; PULSE 92; RESP 18; TEMP 36.8; O2SAT 96
[2020-11-13 17:40] LABS: Abs Immature Grans 0.03 10^3/uL (0.0-0.06); Absolute Basophil Count 0.03 10^3/uL (0.0-0.2); Absolute Eosinophil Count 0.12 10^3/uL (0.0-0.7); Absolute Neutrophil Count 7.78 10^3/uL (1.2-6.7); Basophils % 0.3; Eosinophils % 1.3; HCT 42.8 % (36.0-46.0); HGB 14.6 g/dL (11.2-15.7); Immature Grans % 0.3; Lymphocytes % 11.5; MCH 32.9 pg (27.0-33.0); MCHC 34.1 % (32.0-36.0); MCV 96.4 fL (80-95); Monocytes % 5.2; Neutrophils % 81.4; Nucleated RBC 0 %; Platelet Count 206 10^3/uL (130-400); RBC 4.44 10^6/uL (3.93-5.22); RDW 12.2 % (11.7-14.6); RDW-SD 43.3 fL; WBC 9.56 10^3/uL (4.4-10.8)
[2020-11-13 17:43] LABS: Bilirubin Negative (Negative); Blood Large (Negative); Clarity Cloudy (Clear); Glucose Negative (Negative); Ketones 40 mg/dL (Negative); Leukocyte Esterase Negative (Negative); Nitrite Negative (Negative); Specific Gravity 1.025 (1.005-1.025); Urobilinogen 0.2 EU/dL (Up TO 0.2); pH 5.5 (5-8)
[2020-11-13] MEDS: Normal Saline 1,000 ML 1000 ML IV (17:55)
[2020-11-13] MEDS: Ondansetron 4 MG/2 ML VIAL IVP (17:56)
[2020-11-13 18:02] LABS: AST 12 U/L (15-37); Alkaline Phosphatase 83 U/L (46-116); Anion Gap 8.3 mmol/L (3-11); BUN 8 mg/dL (7-18); Bacteria Negative HPF (Negative); Bilirubin, Total 0.4 mg/dL (0.2-1.0); C & S Indicated? No; CO2 27.7 mmol/L (21.0-32.0); CREATININE 0.6 mg/dL (0.55-1.02); Calcium 8.6 mg/dL (8.5-10.1); Casts Negative LPF (Negative); Chloride 105 mmol/L (98-107); Crystals Negative HPF (Negative); Epithelial Cells Few HPF (Negative); Glucose 94 mg/dL (74-106); Mucus Negative (Negative); Potassium 3.7 mmol/L (3.5-5.1); RBC >50 HPF (0-2); Sodium 141 mmol/L (136-145); Total Protein 7.1 g/dL (6.4-8.2)
[2020-11-13 18:03] LABS: ALT 17 U/L (14-59)
--- NOTE | 2020-11-13 18:11 | DI.VRAD_ITS ---
PROCEDURE INFORMATION: Exam: CT Abdomen And Pelvis Without Contrast Exam date and time: 11/13/2020 5:13 PM Age: 35 years old Clinical indication: Abdominal pain; Left; Patient HX: L flank pain, HX of stone TECHNIQUE: Imaging protocol: Computed tomography of the abdomen and pelvis without contrast. COMPARISON: CT RENAL COLIC WO 11/09/2020 8:14 PM FINDINGS: Lungs: Minimal subsegmental atelectasis versus scarring in the lung bases. Liver: No hepatic masses on noncontrast imaging. Gallbladder and bile ducts: Cholecystectomy. Typical caliber of the CBD for a post cholecystectomy patient. Pancreas: No ductal dilation. No masses. Spleen: No splenomegaly or focal lesions. Adrenal glands: No mass. Kidneys and ureters: No nephrolithiasis or collecting system obstruction. Previously seen calculus has resolved. Stomach and bowel: Fluid in stool in the colon without CT evidence of colitis. Fluid-filled small bowel generally mildly prominent in caliber however without a focal transition point. Mild wall thickening is present in mid abdominal loops of small bowel. There is trace associated mesenteric edema. Appendix: No evidence of appendicitis. Intraperitoneal space: See Stomach and bowel finding. Retroperitoneal space: Minor retroperitoneal edema. No abscess or free air. Vasculature: No abdominal aortic aneurysm. Lymph nodes: No significantly enlarged lymph nodes. Urinary bladder: The urinary bladder is mostly decompressed. Reproductive: Hysterectomy. Bones/joints: No acute fracture. Soft tissues: No suspicious lesions. IMPRESSION: 1. Mild mid small bowel enteritis. No obstruction. 2. Incidental findings as described. Dictated and Authenticated by: Bety Briscoe MD. Ordering:JOVAN Brandon MD
[2020-11-13] MEDS: Ketorolac 30 MG/ML VIAL IVP (18:23)
--- NOTE | 2020-11-13 18:35 | ED.GENADUL_ITS ---
Discharge Plan Disposition Patient Disposition: HOME Condition: Improving Discharge Details Clinical Impression: Flank pain Primary Care Provider: Kathryn Nichole ED Provider: Aleksandr Green Home Meds and New Rx's Prescriptions: Continued sulindac 200 mg tablet 200 mg PO BID Qty: 30 RF: 0 trazodone 100 mg tablet 100 mg PO HS Qty: 90 RF: 3 sertraline 50 mg tablet 50 mg PO HS Qty: 90 RF: 3 tamsulosin 0.4 mg capsule 0.4 mg PO QHS 7 Days Qty: 7 RF: 0 acetaminophen [Tylenol] 325 mg Capsule 650 mg PO PRN PRNRF: 0 ibuprofen 800 mg tablet 800 mg PO Q8H PRN (Reason: pain) Qty: 30 RF: 1 Discharge Instructions Instructions: Flank Pain (ED) Additional Instructions: Laboratory values do not reveal any obvious emergent process. CT imaging reveals that the recent stone from Monday has resolved as well as the hydronephrosis. At this time I see no clear indication to treat your discomfort with narcotic medication. Please continue the regimen set forth by your prim raimundo care provider. Please watch for new or worsening symptoms and return to the ER for any concerns. Otherwise follow-up with urology as scheduled. Discharge Data Discharge Date/Time-TO BE ENTERED AT DEPARTURE: 11/13/20 19:05 Medical Decision Making 35-year-old female presents complaining of ongoing left flank pain status post being diagnosed with a 3 mm stone with mild hydronephrosis on Monday. She is out of hydrocodone and her primary care who she saw today will not give additional narcotic medication. Clinically she appears well, nontoxic, vital signs are unremarkable. I am hesitant to initially give narcotic medication until I am able to evaluate her laboratory values and CT findings. Will obtain IV access, give IV fluid and Zofran. With her multiple allergies, treatment options for analgesia are limited Laboratory values reveal large blood, greater than 50 red blood cells, chronic hematuria otherwise unremarkable. No evidence of leukocytosis or change in renal function. CT reveals no nephrolithiasis or collecting system obstruction. Previously seen calculus has resolved. Mild mid to small bowel enteritis, no obstruction Discussed CT findings with patient. She has no GI symptoms whatsoever. The stone appears to have passed, I see no clear indication for narcotic medication. Discussed this with the patient. She would like a dose of Toradol. She states that she has not had Toradol in a long time and does not believe that she has a true allergy to Toradol. A single dose of 30 IV Toradol was given. Patient appeared to have no allergic reaction to Toradol. I was called to her room, she is requesting discharge. Appears well, nontoxic. No additional questions or concerns. Standard discharge and return precautions given. I advised her to contact her primary care provider and continue the regimen set forth by her provider. I also recommend reaching out to her urology team to let them know the stone has passed and discuss her ongoing symptoms Medical Records Medical records reviewed: Yes I reviewed the patient's medical records. Imaging Data Radiologic Study: Attestation: I personally reviewed and interpreted this imaging study as follows: Imaging: CT Scan Radiologist's impression: Exam: CT Abdomen And Pelvis Without Contrast Exam date and time: 11/13/2020 5:13 PM Age: 35 years old Clinical indication: Abdominal pain; Left; Patient HX: L flank pain, HX of stone TECHNIQUE: Imaging protocol: Computed tomography of the abdomen and pelvis without contrast. COMPARISON: CT RENAL COLIC WO 11/09/2020 8:14 PM FINDINGS: Lungs: Minimal subsegmental atelectasis versus scarring in the lung bases. Liver: No hepatic masses on noncontrast imaging. Gallbladder and bile ducts: Cholecystectomy. Typical caliber of the CBD for a post cholecystectomy patient. Pancreas: No ductal dilation. No masses. Spleen: No splenomegaly or focal lesions. Adrenal glands: No mass. Kidneys and ureters: No nephrolithiasis or collecting system obstruction. Previously seen calculus has resolved. Stomach and bowel: Fluid in stool in the colon without CT evidence of colitis. Fluid-filled small bowel generally mildly prominent in caliber however without a focal transition point. Mild wall thickening is present in mid abdominal loops of small bowel. There is trace associated mesenteric edema. Appendix: No evidence of appendicitis. Intraperitoneal space: See Stomach and bowel finding. Retroperitoneal space: Minor retroperitoneal edema. No abscess or free air. Vasculature: No abdominal aortic aneurysm. Lymph nodes: No significantly enlarged lymph nodes. SYLVIA JOYA Preliminary Radiology Report FINISHING RANGE OPERATOR (QA) DISCREPANCY? If there is a discrepancy between the preliminary and final interpretation, please notify [facility] via [email or web address]. If you do not have access to our QA portal, call our QA team at [phone] CONFIDENTIALITY STATEMENT This report is intended only for the use of the referring physician, and only in accordance with law, If you received this in error, call [phone] Page 2 of 2 Urinary bladder: The urinary bladder is mostly decompressed. Reproductive: Hysterectomy. Bones/joints: No acute fracture. Soft tissues: No suspicious lesions. IMPRESSION: 1. Mild mid small bowel enteritis. No obstruction. 2. Incidental findings as described. Lab Data Lab results reviewed: Yes I reviewed the patient's lab results. Labs: Laboratory Tests Range/Units 11/13/20 11/13/20 11/13/20 17:20 17:20 17:20 WBC (4.4-10.8) 10^3/uL 9.56 RBC (3.93-5.22) 10^6/uL 4.44 Hgb (11.2-15.7) g/dL 14.6 Hct (36.0-46.0) % 42.8 MCV (80-95) fL 96.4 H MCH (27.0-33.0) pg 32.9 MCHC (32.0-36.0) % 34.1 RDW (11.7-14.6) % 12.2 Plt Count (130-400) 10^3/uL 206 MPV (8.0-11.0) fL 10.0 Immature Gran % 0.3 Neutrophils % 81.4 Lymphocytes % 11.5 Monocytes % 5.2 Eosinophils % 1.3 Basophils % 0.3 Nucleated RBC % % 0 Absolute Neutrophils (1.2-6.7) 10^3/uL 7.78 H Absolute Lymphocytes (1.2-3.4) 10^3/uL 1.10 L Absolute Monocytes (0.1-0.8) 10^3/uL 0.50 Absolute Eosinophils (0.0-0.7) 10^3/uL 0.12 Absolute Basophils (0.0-0.2) 10^3/uL 0.03 Sodium (136-145) mmol/L 141 Potassium (3.5-5.1) mmol/L 3.7 Chloride (98-107) mmol/L 105 Carbon Dioxide (21.0-32.0) mmol/L 27.7 Anion Gap (3-11) mmol/L 8.3 BUN (7-18) mg/dL 8 Creatinine (0.55-1.02) mg/dL 0.6 Estimated GFR/1.73 m2 (mL/min/1.73m2) >= 60.00 Glucose (74-106) mg/dL 94 Calcium (8.5-10.1) mg/dL 8.6 Total Bilirubin (0.2-1.0) mg/dL 0.4 AST (15-37) U/L 12 L ALT (14-59) U/L 17 Alkaline Phosphatase (46-116) U/L 83 Total Protein (6.4-8.2) g/dL 7.1 Albumin (3.4-5.0) g/dL 4.0 Urine Color (Yellow) Yellow Urine Clarity (Clear) Cloudy Urine pH (5-8) 5.5 Ur Specific [place] (1.005-1.025) 1.025 Urine Protein (Negative) mg/dL Negative Urine Ketones (Negative) mg/dL 40 H Urine Blood (Negative) Large H Urine Nitrite (Negative) Negative Urine Bilirubin (Negative) Negative Urine Urobilinogen (Up TO 0.2) EU/dL 0.2 Ur Leukocyte Esterase (Negative) Negative Urine RBC (0-2) HPF >50 H Urine WBC (0-5) HPF 3-5 Ur Epithelial Cells (Negative) HPF Few Urine Crystals (Negative) HPF Negative Urine Bacteria (Negative) HPF Negative Urine Casts (Negative) LPF Negative Urine Mucus (Negative) Negative Ur Culture Indicated? No Urine Glucose (Negative) mg/dL Negative HPI General Mode of arrival: ambulatory . Date/Time Provider Initiated Documentation: 11/13/20 17:09 . Limitations to Documentation: no limitations . Information obtained by: patient . HPI Narrative: This is a 35-year-old female with past medical history of anemia, anxiety, depression, renal stones, seen in our ER both on Monday and Monday for the same, presenting reporting she has not passed the stone and continues to have left-sided flank and back pain. CT was obtained initially on Monday which revealed a 3 mm stone with mild hydronephrosis, unfortunately on Monday the CT machine was down for scheduled maintenance. At that time laboratory values were unremarkable, treated with Dilaudid and subsequently discharged. Patient was seen by her primary care provider today who would not prescribe additional narcotic medication, patient is out of her hydrocodone and reports the pain is again severe associated with nausea but denies vomiting or dysuria. Reports chronic hematuria. Denies fever or vaginal bleeding she denies any abdominal discomfort, diarrhea, constipation, change of appetite. Related Data Home Medications Medication Instructions Recorded Confirmed acetaminophen [Tylenol] 650 mg PO PRN PRN 03/20/19 11/13/20 ibuprofen 800 mg PO Q8H PRN #30 tab 02/27/20 11/13/20 trazodone 100 mg tablet 100 mg PO HS #90 tab 03/26/20 11/13/20 sertraline 50 mg tablet 50 mg PO HS #90 tab 04/15/20 11/13/20 tamsulosin 0.4 mg PO QHS 7 Days #7 cap 11/09/20 11/13/20 sulindac 200 mg tablet 200 mg PO BID #30 tab 11/13/20 11/13/20 Previous Rx's Medication Instructions Recorded ibuprofen 800 mg PO Q8H PRN #30 tab 02/27/20 trazodone 100 mg tablet 100 mg PO HS #90 tab 03/26/20 sertraline 50 mg tablet 50 mg PO HS #90 tab 04/15/20 tamsulosin 0.4 mg PO QHS 7 Days #7 cap 11/09/20 sulindac 200 mg tablet 200 mg PO BID #30 tab 11/13/20 Allergies Allergy/AdvReac Type Severity Reaction Status Date / Time cephalexin [Cephalexin] AdvReac Severe Abdominal Verified 11/13/20 17:15 Cramps sulfamethoxazole AdvReac Severe Nausea and Verified 11/13/20 17:15 [From Bactrim] vomiting trimethoprim [From Bactrim] AdvReac Severe Nausea and Verified 11/13/20 17:15 vomiting vancomycin AdvReac Severe diarrhea, Verified 11/13/20 17:15 redness acetaminophen AdvReac Intermediate Other (See Verified 11/13/20 17:15 Comment) Cephalosporins AdvReac Intermediate Diarrhea Verified 11/13/20 17:15 codeine phosphate AdvReac Intermediate Vomiting Verified 11/13/20 17:15 [From Tylenol-Codeine #3] ketorolac AdvReac Intermediate Cramping/vo Verified 11/13/20 17:15 mitting oxycodone AdvReac Intermediate Nausea/vomi Verified 11/13/20 17:15 tting tramadol AdvReac Intermediate Diarrhea Verified 11/13/20 17:15 General Stated Complaint: FlankPain HALINA: 3 Review of Systems Constitutional Constitutional: Denies fever(s) Cardiovascular Cardiovascular: Denies chest pain and Denies dyspnea Respiratory Respiratory: Denies cough and Denies dyspnea Gastrointestinal Gastrointestinal: Reports abdominal pain (Left flank), Denies constipation, Denies diarrhea, Reports nausea and Denies vomiting Genitourinary Genitourinary: Reports hematuria, Denies dysuria and Denies vaginal discharge Musculoskeletal Musculoskeletal: Reports back pain Integumentary/Breasts Skin/Breast: Denies rash [facility] Medical History Abnormal uterine bleeding Anemia Anxiety BMI 32.0-32.9,adult Depression 2013 Seen in ED with SI. Referred to counselor. Endometriosis of pelvis (~2009) Stage1. Hepatic steatosis Hepatomegaly History of renal calculi Kidney stones Lymphedema lower left leg, pt. 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 reports nerves were fixed S/P laparoscopic assisted vaginal hysterectomy (LAVH) Status post endovenous radiofrequency ablation (RFA) of saphenous vein for venous insufficiency 09/06/2018 wisdom teeth extraction Family History Mother Diabetes Heart disease Hyperlipidemia Father Colon cancer Heart disease Hyperlipidemia Sister Hyperlipidemia Grandfather Diabetes Grandfather Diabetes Hyperlipidemia Asthma Grandmother Diabetes Personal history of malignant neoplasm Breast Heart disease Hyperlipidemia Grandmother No problems noted. Social History Smoking/Tobacco Use Status: Current every day Tobacco Type: cigarettes Smoking risk assessment performed?: Yes Alcohol Intake: never Drug use: Occasionally Substance use type: marijuana Do you feel safe at home: Yes Do you feel safe in your relationship?: Yes Exam Const General: cooperative, healthy appearing, comfortable and no acute distress Orientation: alert and awake HENMT Head: normal to inspection, normocephalic and atraumatic Mouth: moist mucous membranes Eyes General: appearance normal, both eyes and all related structures Conjunctivae: conjunctivae normal Neck Neck: normal visual inspection, trachea midline and supple Resp Effort & Inspection: normal respiratory effort and able to speak in complete sentences Auscultation: clear to auscultation bilaterally Cardio Rate: regular rate Rhythm: regular rhythm GI Inspection: normal to inspection Palpation: soft, not firm, no guarding, no pulsatile masses and tender (Diffuse mild left flank) Auscultation: normal bowel sounds Back/Spine/Pelvis Back: no CVA tenderness and back tenderness (Diffuse mild lumbar) Skin General skin exam: no rashes or lesions noted Neuro General: patient alert, patient awake, moves all extremities and no focal motor deficits Cognition: normal cognition Speech: speech normal Gait: normal gait Sensory Exam: no sensory deficits noted Psych Appearance: grossly normal Mental Status: mental status grossly normal Course Vital Signs Vital signs: Vital Signs Temperature 36.8 C 11/13/20 17:13 Pulse 92 H 11/13/20 17:13 Respiratory Rate 18 11/13/20 17:13 Blood Pressure 130/79 11/13/20 17:13 Pulse Oximetry 96 11/13/20 17:13 Temperature 36.8 C 11/13/20 17:13 Temperature Source Skin 11/13/20 17:13 Pulse 92 H 11/13/20 17:13 Respiratory Rate 18 11/13/20 17:13 Respiratory Effort Non-Labored 11/13/20 17:16 Blood Pressure 130/79 11/13/20 17:13 Blood Pressure Position Sitting 11/13/20 17:13 Pulse Oximetry 96 11/13/20 17:13 Oxygen Delivery Method Room Air 11/13/20 17:13 Oxygen Flow Rate 0 11/13/20 17:13 Pain Level 8 11/13/20 18:25 Lab/Test Results Lab/Test Results: Laboratory Tests Range/Units 11/13/20 11/13/20 11/13/20 17:20 17:20 17:20 WBC (4.4-10.8) 10^3/uL 9.56 RBC (3.93-5.22) 10^6/uL 4.44 Hgb (11.2-15.7) g/dL 14.6 Hct (36.0-46.0) % 42.8 MCV (80-95) fL 96.4 H MCH (27.0-33.0) pg 32.9 MCHC (32.0-36.0) % 34.1 RDW (11.7-14.6) % 12.2 Plt Count (130-400) 10^3/uL 206 MPV (8.0-11.0) fL 10.0 Immature Gran % 0.3 Neutrophils % 81.4 Lymphocytes % 11.5 Monocytes % 5.2 Eosinophils % 1.3 Basophils % 0.3 Nucleated RBC % % 0 Absolute Neutrophils (1.2-6.7) 10^3/uL 7.78 H Absolute Lymphocytes (1.2-3.4) 10^3/uL 1.10 L Absolute Monocytes (0.1-0.8) 10^3/uL 0.50 Absolute Eosinophils (0.0-0.7) 10^3/uL 0.12 Absolute Basophils (0.0-0.2) 10^3/uL 0.03 Sodium (136-145) mmol/L 141 Potassium (3.5-5.1) mmol/L 3.7 Chloride (98-107) mmol/L 105 Carbon Dioxide (21.0-32.0) mmol/L 27.7 Anion Gap (3-11) mmol/L 8.3 BUN (7-18) mg/dL 8 Creatinine (0.55-1.02) mg/dL 0.6 Estimated GFR/1.73 m2 (mL/min/1.73m2) >= 60.00 Glucose (74-106) mg/dL 94 Calcium (8.5-10.1) mg/dL 8.6 Total Bilirubin (0.2-1.0) mg/dL 0.4 AST (15-37) U/L 12 L ALT (14-59) U/L 17 Alkaline Phosphatase (46-116) U/L 83 Total Protein (6.4-8.2) g/dL 7.1 Albumin (3.4-5.0) g/dL 4.0 Urine Color (Yellow) Yellow Urine Clarity (Clear) Cloudy Urine pH (5-8) 5.5 Ur Specific [place] (1.005-1.025) 1.025 Urine Protein (Negative) mg/dL Negative Urine Ketones (Negative) mg/dL 40 H Urine Blood (Negative) Large H Urine Nitrite (Negative) Negative Urine Bilirubin (Negative) Negative Urine Urobilinogen (Up TO 0.2) EU/dL 0.2 Ur Leukocyte Esterase (Negative) Negative Urine RBC (0-2) HPF >50 H Urine WBC (0-5) HPF 3-5 Ur Epithelial Cells (Negative) HPF Few Urine Crystals (Negative) HPF Negative Urine Bacteria (Negative) HPF Negative Urine Casts (Negative) LPF Negative Urine Mucus (Negative) Negative Ur Culture Indicated? No Urine Glucose (Negative) mg/dL Negative POC- Test(urine) Negative
[2020-11-13 19:07] VITALS: BP 130/79; PULSE 92; RESP 18; TEMP 36.8; O2SAT 96
== END 2020-11-13 19:05 | disposition home or self-care (01) ==
PROVIDERS: Emergency Provider Physician Assistant; PCP Nurse Practitioner
DX: R10.9 Unspecified abdominal pain (principal); Z87.442 Personal history of urinary calculi
CPT/HCPCS: 36415; 80053; 81025; 96361; 96374; 96375; 99284; 74176; 81003; 81015; 85025; J1885; J2405

== ENCOUNTER 2020-11-27 04:23 | Outpatient (CLI) | payer MEDICAID, SELFPAY ==
--- NOTE | 2020-11-27 07:45 | DI.MAMMO_ITS ---
Exam(s) US BREAST RT LIMITED MG MAMMO DIAGNOSTIC BI EXAM: MG MAMMO DIAGNOSTIC BI CLINICAL HISTORY: breast lump right axilla/ tail of zhang with US, N63.0. COMPARISON: US US BREAST RT LIMITED from 11/27/2020 US US BREAST RT LIMITED from 11/27/2020 [email or web address] TECHNIQUE: Craniocaudal and mediolateral oblique Full Field Digital Mammography views of both breast s with Computer Aided Diagnosis followed by Tomosynthesis and targeted right breast ultrasound. FINDINGS: Mammography/Tomosynthesis: A marker was placed over the area of palpable abnormality in the far superior upper outer quadrant. Masses/Architectural Distortion: None seen. Microcalcifications: No suspicious pleomorphic-type are seen. Skin Thickening/Nipple Retraction: None. Breast US: Echotexture: Normal appearance of the glandular tissue. Shadowing: No suspicious foci. Cyst: None. Solid lesions: None seen. No enlarged axillary lymph nodes. Ductal dilation: None. IMPRESSION: 1. No evidence of malignancy is noted. 2. Unless there is more urgent need, follow-up screening mammography is recommended, as per [place] [employer] guidelines. BI-RADS Category 1 - Negative Breast Density - Category C - Heterogeneously dense Breast density category C or D implies that the patient has dense breast tissue. Dense breast tissue is very common and is not abnormal but dense breast tissue can make it harder to find cancer on a ma mmogram. Also, dense breast tissue may increase their breast cancer risk. This information about the result of the mammogram report was provided to the patient to raise their awareness. Use this report when you speak with the patient about their risks for breast cancer, which includes their family hist ory. At that time, you may recommend for more screening tests (Ultrasound or MRI) as they might be us eful based on their risk. A negative radiographic report should not delay biopsy if a dominant or clinically suspicious mass is present. Up to ten percent of cancers are not identified on mammography. A negative report may reinforce clinical impression. Adenosis and dense breasts may obscure an underlying neoplasm. False positive reports average 6 to 10%. Patient will receive a letter notifying them of these results.
== END 2020-11-27 04:43 ==
PROVIDERS: PCP Nurse Practitioner; Visit Provider Nurse Practitioner
DX: N63.31 Unspecified lump in axillary tail of the right breast (principal)
CPT/HCPCS: 76642; 77062; 77066; G0279

== ENCOUNTER 2020-12-03 04:27 | Emergency (ER) | payer MEDICAID, SELFPAY ==
[2020-12-03 04:30] VITALS: BP 121/77; PULSE 69; RESP 18; TEMP 36.3; O2SAT 98
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
[2020-12-03] MEDS: HYDROmorphone 2 MG/ML VIAL 1 MG IVP (04:52)
[2020-12-03] MEDS: Tetanus & Diphtheria Tox,ADULT 0.5 ML VIAL IM (05:18)
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
[2020-12-03 05:32] VITALS: BP 138/82; PULSE 67; RESP 18; O2SAT 98
== END 2020-12-03 05:46 | disposition home or self-care (01) ==
LOC: ER 05:41
PROVIDERS: Emergency Provider Emergency Medicine; PCP Nurse Practitioner
DX: S00.83XA Contusion of other part of head, initial encounter (principal); Y04.2XXA Assault by strike against or bumped into by another person, initial encounter; S51.812A Laceration without foreign body of left forearm, initial encounter; X99.1XXA Assault by knife, initial encounter; Y07.03 Male partner, perpetrator of maltreatment and neglect
CPT/HCPCS: 90471; 96374; 99284; 70450; 70486

== ENCOUNTER 2021-01-20 17:36 | Outpatient (REF) | payer MEDICAID, SELFPAY ==
[2021-01-22 10:43] LABS: COVID-19 RT-PCR UVMMC Result Negative (Negative)
== END 2021-01-20 17:37 | disposition home or self-care (01) ==
LOC: LBN 17:36
PROVIDERS: PCP Nurse Practitioner; Visit Provider Nurse Practitioner Family
DX: Z20.822 Contact with and (suspected) exposure to COVID-19 (principal)
CPT/HCPCS: U0003

== ENCOUNTER 2021-04-04 23:48 | Emergency (ER) | payer MEDICAID, SELFPAY ==
[2021-04-04 23:56] VITALS: BP 138/80; PULSE 78; RESP 18; TEMP 37.1; O2SAT 99
--- NOTE | 2021-04-05 | DI.CT_ITS ---
Exam(s) CT RENAL COLIC WO EXAM: CT RENAL COLIC WO CLINICAL HISTORY: left flank pain. TECHNIQUE: Imaging Protocol: Axial computed tomography images with coronal and sagittal reformatted images were created and reviewed. CONTRAST MATERIAL: Noncontrast COMPARISON: CT CT RENAL COLIC WO from 11/13/2020 FINDINGS: ABDOMEN: Lung Bases: Normal where visualized. Liver: Mild fatty infiltration.. No measurable mass. Gallbladder and biliary tract: Status post cholecystectomy. No radiodense calculus or dilation. Pancreas: Normal density, no calcifications or inflammatory process. Spleen: Normal. Kidneys: Normal size, contour and axis. No radiodense stones or obstructive uropathy. No masses seen. Adrenal glands: No masses seen. Abdominal Aorta: Abdominal portion non-dilated. PELVIS: Bladder: Not well evaluated, nearly empty. Bowel: Appendix normal. No obstruction or bowel wall thickening. Normal quantity of stool. Peritoneal cavity: No ascites, collection or mesenteric inflammatory response. Reproductive: Status p ost hysterectomy. Bones: Within normal limits. IMPRESSION: Unremarkable CT scan of the abdomen and pelvis. No hydronephrosis or urinary tract calculi. RADIATION DOSE DELIVERED: 858.47mGy.cm Total DLP DATA REPOSITORY: All CT scans at this facility are submitted to the National Radiology Data Registry (NRDR) Dose Index Registry (DIR) with the [employer] (A[employer]). RADIATION OPTIMIZATION: All CT scans at this facility use at least one of these dose optimization te chniques: automated exposure control; mA and/or kV adjustment per patient size (includes targeted exa ms where dose is matched to clinical indication); or iterative reconstruction.
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
[2021-04-05] MEDS: Ketorolac 15 MG/ML VIAL 30 MG IVP (00:19)
[2021-04-05] MEDS: Normal Saline 1,000 ML 1000 ML IV (00:19)
[2021-04-05 00:20] LABS: Bilirubin Negative (Negative); Blood Large (Negative); Clarity Cloudy (Clear); Glucose Negative (Negative); Ketones Negative (Negative); Leukocyte Esterase Trace (Negative); Nitrite Negative (Negative); Specific Gravity 1.025 (1.005-1.025)
[2021-04-05] MEDS: Ondansetron 4 MG/2 ML VIAL IVP (00:21)
[2021-04-05 00:25] LABS: Bacteria Few HPF (Negative); C & S Indicated? Yes; Casts Negative LPF (Negative); Crystals Moderate Amorphous HPF (Negative); Epithelial Cells Few HPF (Negative); Mucus Negative (Negative)
[2021-04-05 00:32] LABS: ALT 18 U/L (14-59); AST 10 U/L (15-37); Albumin 3.9 g/dL (3.4-5.0); Alkaline Phosphatase 90 U/L (46-116); Anion Gap 11.5 mmol/L (3-11); BUN 10 mg/dL (7-18); Bilirubin, Total 0.2 mg/dL (0.2-1.0); CO2 23.5 mmol/L (21.0-32.0); CREATININE 0.6 mg/dL (0.55-1.02); Calcium 7.8 mg/dL (8.5-10.1); Chloride 105 mmol/L (98-107); Glucose 117 mg/dL (74-106); Lipase 67 U/L (73-393); Magnesium 1.9 mg/dL (1.8-2.4); Potassium 3.7 mmol/L (3.5-5.1); Sodium 140 mmol/L (136-145); Total Protein 7.4 g/dL (6.4-8.2)
[2021-04-05 00:34] LABS: Abs Immature Grans 0.03 10^3/uL (0.0-0.06); Absolute Basophil Count 0.05 10^3/uL (0.0-0.2); Absolute Eosinophil Count 0.17 10^3/uL (0.0-0.7); Absolute Lymphocyte Count 2.73 10^3/uL (1.2-3.4); Absolute Monocyte Count 0.62 10^3/uL (0.1-0.8); Absolute Neutrophil Count 6.09 10^3/uL (1.2-6.7); Basophils % 0.5; Eosinophils % 1.8; HCT 43.7 % (36.0-46.0); HGB 14.7 g/dL (11.2-15.7); Immature Grans % 0.3; Lymphocytes % 28.2; MCH 32.5 pg (27.0-33.0); MCHC 33.6 % (32.0-36.0); MCV 96.7 fL (80-95); MPV 10.6 fL (8.0-11.0); Monocytes % 6.4; Neutrophils % 62.8; Nucleated RBC 0 %; Platelet Count 220 10^3/uL (130-400); RBC 4.52 10^6/uL (3.93-5.22); RDW 11.8 % (11.7-14.6); WBC 9.69 10^3/uL (4.4-10.8)
--- NOTE | 2021-04-05 00:43 | DI.VRAD_ITS ---
PROCEDURE INFORMATION: Exam: CT Abdomen And Pelvis Without Contrast Exam date and time: 04/05/2021 12:10 AM Age: 35 years old Clinical indication: Other: Lt sided flank pain TECHNIQUE: Imaging protocol: Computed tomography of the abdomen and pelvis without contrast. Radiation optimization: All CT scans at this facility use at least one of these dose optimization techniques: automated exposure control; mA and/or kV adjustment per patient size (includes targeted exams where dose is matched to clinical indication); or iterative reconstruction. COMPARISON: CT RENAL COLIC WO 11/13/2020 5:49 PM FINDINGS: Liver: Normal. No mass. Gallbladder and bile ducts: The patient is status post cholecystectomy. Pancreas: Normal. No ductal dilation. Spleen: Normal. No splenomegaly. Adrenal glands: Normal. No mass. Kidneys and ureters: Normal. No hydronephrosis. Stomach and bowel: Perienteric stranding noted involving loops of small bowel in the left abdomen. The findings may reflect a nonspecific enteritis in the correct clinical setting. Appendix: No evidence of appendicitis. Intraperitoneal space: Unremarkable. No free air. No significant fluid collection. Vasculature: Unremarkable. No abdominal aortic aneurysm. Lymph nodes: Unremarkable. No enlarged lymph nodes. Urinary bladder: The urinary bladder is questionably thickwalled. This may reflect incomplete distention. However correlation with UA is recommended to exclude cystitis. Reproductive: The patient is status post hysterectomy. Trace free fluid is present which is nonspecific but may reflect physiologic fluid or rupture of an ovarian cyst or follicle. Bones/joints: Unremarkable. No acute fracture. Soft tissues: Unremarkable. IMPRESSION: 1. Perienteric stranding noted involving loops of small bowel in the left abdomen. The findings may reflect a nonspecific enteritis in the correct clinical setting. 2. Trace free pelvic fluid. 3. Equivocal cystitis. Dictated and Authenticated by: Hair Garcia MD. Ordering:XOCHITL Avila MD
[2021-04-05] MEDS: Ciprofloxacin 500 MG TAB PO (00:59)
[2021-04-05] MEDS: HYDROcodone 10/Acetaminophen 325 TAB PO (01:00)
== END 2021-04-05 01:07 | disposition home or self-care (01) ==
PROVIDERS: Emergency Provider Emergency Medicine; PCP Nurse Practitioner
DX: N10 Acute pyelonephritis (principal); R10.9 Unspecified abdominal pain
CPT/HCPCS: 80053; 81025; 83690; 96361; 96374; 96375; 99285; 74176; 81003; 81015; 83735; 85025; 87086; 99284; J1885; J2405; J3490

== ENCOUNTER 2021-04-26 00:18 | Emergency (ER) | payer MEDICAID, SELFPAY ==
[2021-04-26] VITALS (8 sets, daily range): BP systolic 105–132; BP diastolic 62–76; PULSE 70–76; RESP 16–30; TEMP 36.9; O2SAT 98–99
[2021-04-26 00:45] LABS: Abs Immature Grans 0.04 10^3/uL (0.0-0.06); Absolute Basophil Count 0.07 10^3/uL (0.0-0.2); Absolute Eosinophil Count 0.16 10^3/uL (0.0-0.7); Absolute Lymphocyte Count 2.74 10^3/uL (1.2-3.4); Absolute Monocyte Count 0.54 10^3/uL (0.1-0.8); Absolute Neutrophil Count 4.77 10^3/uL (1.2-6.7); Basophils % 0.8; Eosinophils % 1.9; HCT 42.1 % (36.0-46.0); HGB 14.4 g/dL (11.2-15.7); Immature Grans % 0.5; Lactate 0.9 mmol/L (0.6-1.4); Lymphocytes % 32.9; MCHC 34.2 % (32.0-36.0); MCV 96.6 fL (80-95); MPV 9.9 fL (8.0-11.0); Monocytes % 6.5; Neutrophils % 57.4; Nucleated RBC 0 %; Platelet Count 201 10^3/uL (130-400); RBC 4.36 10^6/uL (3.93-5.22); RDW 11.6 % (11.7-14.6); RDW-SD 41.4 fL; WBC 8.32 10^3/uL (4.4-10.8)
[2021-04-26] MEDS: Normal Saline 1,000 ML 1000 ML IV (00:50)
[2021-04-26] MEDS: Dicyclomine 20 MG TAB PO (00:57)
[2021-04-26 01:05] LABS: ALT 22 U/L (14-59); AST 10 U/L (15-37); Albumin 3.9 g/dL (3.4-5.0); Alkaline Phosphatase 75 U/L (46-116); Anion Gap 8.1 mmol/L (3-11); BUN 8 mg/dL (7-18); Bilirubin, Total 0.2 mg/dL (0.2-1.0); CO2 27.9 mmol/L (21.0-32.0); CREATININE 0.6 mg/dL (0.55-1.02); Calcium 8.5 mg/dL (8.5-10.1); Chloride 106 mmol/L (98-107); Glucose 116 mg/dL (74-106); Lipase 103 U/L (73-393); Potassium 3.3 mmol/L (3.5-5.1); Sodium 142 mmol/L (136-145); Total Protein 7.3 g/dL (6.4-8.2)
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
== END 2021-04-26 01:34 | disposition left against medical advice (07) ==
PROVIDERS: Emergency Provider Student in an Organized Health Care Education/Training Program; PCP Nurse Practitioner
DX: R10.31 Right lower quadrant pain (principal); Z53.29 Procedure and treatment not carried out because of patient's decision for other reasons
CPT/HCPCS: 80053; 83690; 96361; 96374; 99284; 83605; 85025; 99283

== ENCOUNTER 2021-05-10 17:01 | Emergency (ER) | payer MEDICAID, SELFPAY ==
[2021-05-10 17:08] VITALS: BP 136/78; PULSE 78; RESP 14; TEMP 37.2; O2SAT 99
[2021-05-10 17:35] LABS: Bilirubin Negative (Negative); Blood Large (Negative); Clarity Cloudy (Clear); Glucose Negative (Negative); Ketones Negative (Negative); Leukocyte Esterase Negative (Negative); Nitrite Negative (Negative); Specific Gravity >= 1.030 (1.005-1.025); Urobilinogen 0.2 EU/dL (Up TO 0.2)
[2021-05-10 17:50] LABS: Bacteria Negative HPF (Negative); Crystals Negative HPF (Negative); Epithelial Cells Moderate HPF (Negative); Mucus Negative (Negative); RBC >50 HPF (0-2); WBC Negative HPF (0-5)
[2021-05-10 17:51] LABS: C & S Indicated? No
[2021-05-10 17:58] LABS: Abs Immature Grans 0.03 10^3/uL (0.0-0.06); Absolute Basophil Count 0.04 10^3/uL (0.0-0.2); Absolute Eosinophil Count 0.16 10^3/uL (0.0-0.7); Absolute Lymphocyte Count 2.76 10^3/uL (1.2-3.4); Absolute Neutrophil Count 6.07 10^3/uL (1.2-6.7); Basophils % 0.4; Eosinophils % 1.6; HCT 42.8 % (36.0-46.0); HGB 14.2 g/dL (11.2-15.7); Immature Grans % 0.3; Lymphocytes % 28.3; MCH 32.9 pg (27.0-33.0); MCHC 33.2 % (32.0-36.0); MCV 99.1 fL (80-95); MPV 10.3 fL (8.0-11.0); Monocytes % 7.2; Neutrophils % 62.2; Nucleated RBC 0 %; Platelet Count 217 10^3/uL (130-400); RBC 4.32 10^6/uL (3.93-5.22); RDW 11.7 % (11.7-14.6); RDW-SD 42.9 fL; WBC 9.76 10^3/uL (4.4-10.8)
[2021-05-10 18:13] LABS: ALT 18 U/L (14-59); AST 8 U/L (15-37); Albumin 3.9 g/dL (3.4-5.0); Alkaline Phosphatase 85 U/L (46-116); Anion Gap 8.9 mmol/L (3-11); BUN 10 mg/dL (7-18); Bilirubin, Total 0.1 mg/dL (0.2-1.0); CO2 27.1 mmol/L (21.0-32.0); CREATININE 0.6 mg/dL (0.55-1.02); Calcium 8.6 mg/dL (8.5-10.1); Chloride 106 mmol/L (98-107); Glucose 88 mg/dL (74-106); Sodium 142 mmol/L (136-145); Total Protein 7.4 g/dL (6.4-8.2)
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
== END 2021-05-10 18:57 | disposition other institution (70) ==
PROVIDERS: Emergency Provider Physician Assistant; PCP Family Medicine
DX: R31.9 Hematuria, unspecified (principal); Z53.29 Procedure and treatment not carried out because of patient's decision for other reasons
CPT/HCPCS: 36415; 80053; 81003; 81015; 85025

== ENCOUNTER 2021-06-01 18:15 | Outpatient (REF) | payer MEDICAID, SELFPAY ==
[2021-06-03 11:26] LABS: COVID-19 RT-PCR UVMMC Result Negative (Negative)
== END 2021-06-01 18:16 | disposition home or self-care (01) ==
LOC: LBN 18:15
PROVIDERS: PCP Family Medicine; Visit Provider Nurse Practitioner Family
DX: Z20.822 Contact with and (suspected) exposure to COVID-19 (principal); J02.9 Acute pharyngitis, unspecified
CPT/HCPCS: U0003; 87070

== ENCOUNTER 2021-06-08 10:40 | Emergency (ER) | payer MEDICAID, SELFPAY ==
[2021-06-08 10:50] VITALS: BP 144/74; PULSE 64; RESP 14; TEMP 36.3; O2SAT 100
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
[2021-06-08 12:02] VITALS: BP 144/74; PULSE 64; RESP 14; TEMP 36.3; O2SAT 100
== END 2021-06-08 12:06 | disposition home or self-care (01) ==
PROVIDERS: Emergency Provider Physician Assistant; PCP Family Medicine
DX: L02.411 Cutaneous abscess of right axilla (principal)
CPT/HCPCS: 10061

== ENCOUNTER 2021-06-10 11:12 | Emergency (ER) | payer MEDICAID, SELFPAY ==
[2021-06-10 11:28] VITALS: BP 143/83; PULSE 69; RESP 18; TEMP 36.6; O2SAT 98
--- NOTE | 2021-06-10 11:39 | DI.US_ITS ---
Exam(s) US AXILLA RT EXAM: US AXILLA RT CLINICAL HISTORY: abscess, axillary TECHNIQUE: Ultrasound right axilla performed using standard protocol. COMPARISON: No exams were available for comparison FINDINGS: There is a complex 1.3 x 0.8 x 1 cm subcutaneous fluid collection in the right axilla which may repre sent a small abscess. There is an adjacent 4 mm fluid collection in the subcutaneous tissue which do es connect with the skin and may represent a 2nd small abscess. There is edema seen in the surroundi ng soft tissues. IMPRESSION: Two small subcutaneous fluid collections in the right axilla which may represent small abscesses. DATA REPOSITORY:
[2021-06-10 12:11] LABS: Lactate 1.1 mmol/L (0.6-1.4)
[2021-06-10] MEDS: CLINDAMYCIN 600 MG/50 ML BAG 100 MG IVPB (12:20)
[2021-06-10] MEDS: fentaNYL 100 MCG/2 ML VIAL 50 MCG IVP ×2 (12:20→13:25)
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
[2021-06-10 12:27] LABS: Abs Immature Grans 0.03 10^3/uL (0.0-0.06); Absolute Basophil Count 0.04 10^3/uL (0.0-0.2); Absolute Eosinophil Count 0.13 10^3/uL (0.0-0.7); Absolute Lymphocyte Count 1.95 10^3/uL (1.2-3.4); Absolute Monocyte Count 0.53 10^3/uL (0.1-0.8); Absolute Neutrophil Count 5.17 10^3/uL (1.2-6.7); Basophils % 0.5; Eosinophils % 1.7; HCT 39.8 % (36.0-46.0); HGB 13.5 g/dL (11.2-15.7); Immature Grans % 0.4; Lymphocytes % 24.8; MCHC 33.9 % (32.0-36.0); MCV 97.3 fL (80-95); MPV 9.8 fL (8.0-11.0); Monocytes % 6.8; Neutrophils % 65.8; Nucleated RBC 0 %; Platelet Count 212 10^3/uL (130-400); RBC 4.09 10^6/uL (3.93-5.22); RDW 11.9 % (11.7-14.6); RDW-SD 42.3 fL; WBC 7.85 10^3/uL (4.4-10.8)
[2021-06-10 12:29] LABS: ALT 16 U/L (14-59); AST 9 U/L (15-37); Albumin 3.7 g/dL (3.4-5.0); Alkaline Phosphatase 83 U/L (46-116); Anion Gap 5.8 mmol/L (3-11); BUN 5 mg/dL (7-18); Bilirubin, Total 0.3 mg/dL (0.2-1.0); CO2 29.2 mmol/L (21.0-32.0); CREATININE 0.6 mg/dL (0.55-1.02); Calcium 8.1 mg/dL (8.5-10.1); Chloride 106 mmol/L (98-107); Glucose 98 mg/dL (74-106); Potassium 3.4 mmol/L (3.5-5.1); Sodium 141 mmol/L (136-145)
--- NOTE | 2021-06-10 12:38 | NUR.NOTE ---
No POC done, pt stated she had a hysterectomy 1 year ago, [facility]
[2021-06-10 13:34] VITALS: BP 123/67; PULSE 66; RESP 14; O2SAT 97
--- NOTE | 2021-06-10 13:58 | NUR.NOTE ---
Nursing Note: Pt info faxed to surgical to be seen for abscess and cellulitis to be seen [facility]. Shantell, ED
[2021-06-10 14:21] VITALS: BP 141/88; PULSE 66; RESP 14; O2SAT 93
== END 2021-06-10 14:25 | disposition home or self-care (01) ==
PROVIDERS: Emergency Provider Physician Assistant; PCP Family Medicine
DX: L03.111 Cellulitis of right axilla (principal); L02.411 Cutaneous abscess of right axilla
CPT/HCPCS: 10060; 36415; 76642; 80053; 87040; 87077; 96365; 96375; 99284; 83605; 85025; 87070; 87186; 87205; 99283; J3010

== ENCOUNTER 2021-06-28 09:52 | Emergency (ER) | payer MEDICAID, SELFPAY ==
[2021-06-28 09:59] VITALS: BP 123/71; PULSE 79; RESP 18; TEMP 36.9; O2SAT 100
[2021-06-28 11:53] LABS: Abs Immature Grans 0.02 10^3/uL (0.0-0.06); Absolute Basophil Count 0.04 10^3/uL (0.0-0.2); Absolute Eosinophil Count 0.12 10^3/uL (0.0-0.7); Absolute Lymphocyte Count 1.56 10^3/uL (1.2-3.4); Absolute Monocyte Count 0.64 10^3/uL (0.1-0.8); Absolute Neutrophil Count 4.27 10^3/uL (1.2-6.7); Basophils % 0.6; Eosinophils % 1.8; HCT 41.9 % (36.0-46.0); Immature Grans % 0.3; Lymphocytes % 23.5; MCH 32.9 pg (27.0-33.0); MCHC 33.4 % (32.0-36.0); MCV 98.4 fL (80-95); MPV 9.8 fL (8.0-11.0); Monocytes % 9.6; Neutrophils % 64.2; Nucleated RBC 0 %; Platelet Count 193 10^3/uL (130-400); RBC 4.26 10^6/uL (3.93-5.22); RDW 11.9 % (11.7-14.6); WBC 6.65 10^3/uL (4.4-10.8)
[2021-06-28 12:10] LABS: ALT 18 U/L (14-59); AST 9 U/L (15-37); Albumin 3.9 g/dL (3.4-5.0); Alkaline Phosphatase 81 U/L (46-116); BUN 7 mg/dL (7-18); Bilirubin, Total 0.3 mg/dL (0.2-1.0); CREATININE 0.6 mg/dL (0.55-1.02); Calcium 8.2 mg/dL (8.5-10.1); Chloride 107 mmol/L (98-107); Glucose 100 mg/dL (74-106); Potassium 3.9 mmol/L (3.5-5.1); Sodium 141 mmol/L (136-145); Total Protein 7.2 g/dL (6.4-8.2)
[2021-06-28] MEDS: Omnipaque 350 MG/ML 100 ML BTL 70 ML IJ (12:45)
--- NOTE | 2021-06-28 12:46 | DI.CT_ITS ---
Exam(s) CT CHEST W EXAM: CT CHEST W CLINICAL HISTORY: left axilla infection, pain in axilla, left breast TECHNIQUE: Imaging Protocol: Axial computed tomography images with coronal and sagittal reformatted images were created and reviewed CONTRAST MATERIAL: Intravenous: Omnipaque 350 Contrast volume:70 ml. COMPARISON: No exams were available for comparison FINDINGS: Tracheobronchial tree: No bronchiectasis or mucous plugging. Mediastinum and Deanna: No dominant adenopathy or fluid collection. Pulmonary parenchyma: No consolidation or dominant measurable mass. Pleura: No effusion or pneumothorax. Heart: The heart is not dilated. No coronary artery calcifications are seen. Aorta: Thoracic aorta non-dilated. Upper abdomen: Unremarkable. Status post cholecystectomy. Lymph nodes: Within normal limits. No axillary adenopathy. Bones: Normal. Soft tissues: Skin thickening in left axillary region. No evidence of a an abscess, mass or fluid co llection. IMPRESSION: Left axillary skin thickening, otherwise normal CT of the thorax. Results of this exam have been verbally communicated with emergency department provider. RADIATION DOSE DELIVERED: 512.63mGy.cm Total DLP DATA REPOSITORY: All CT scans at this facility are submitted to the National Radiology Data Registry (NRDR) Dose Index Registry (DIR) with the [employer] ([employer]). RADIATION OPTIMIZATION: All CT scans at this facility use at least one of these dose optimization te chniques: automated exposure control; mA and/or kV adjustment per patient size (includes targeted exa ms where dose is matched to clinical indication); or iterative reconstruction.
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
[2021-06-28] MEDS: MORPHine 4 MG/ML SYR IVP (13:53)
[2021-06-28 14:04] VITALS: BP 121/74; PULSE 75; RESP 16; TEMP 36.7; O2SAT 95
== END 2021-06-28 14:36 | disposition home or self-care (01) ==
PROVIDERS: Emergency Provider Student in an Organized Health Care Education/Training Program; PCP Family Medicine
DX: L03.112 Cellulitis of left axilla (principal)
CPT/HCPCS: 36415; 80053; 96374; 99285; 71260; 83605; 85025; 99284; J2270; J3490

== ENCOUNTER 2021-08-03 13:17 | Emergency (ER) | payer MEDICAID, SELFPAY ==
[2021-08-03 13:28] VITALS: BP 164/80; PULSE 48; RESP 14; TEMP 36.6; O2SAT 100
[2021-08-03 13:43] LABS: Bilirubin Negative (Negative); Blood Trace-intact (Negative); Clarity Clear (Clear); Glucose Negative (Negative); Ketones Negative (Negative); Leukocyte Esterase Negative (Negative); Nitrite Negative (Negative); Specific Gravity >= 1.030 (1.005-1.025); Urobilinogen 0.2 EU/dL (Up TO 0.2); pH 6.5 (5-8)
[2021-08-03 13:53] LABS: Bacteria Moderate HPF (Negative); Casts Negative LPF (Negative); Crystals Negative HPF (Negative); Epithelial Cells Few HPF (Negative); Mucus Moderate (Negative); Other Cells Negative (Negative); WBC Negative HPF (0-5)
[2021-08-03 13:54] LABS: C & S Indicated? Yes
--- NOTE | 2021-08-03 14:00 | DI.CT_ITS ---
Exam(s) CT RENAL COLIC WO EXAM: CT RENAL COLIC WO CLINICAL HISTORY: Left Flank Pain. TECHNIQUE: Imaging Protocol: Axial computed tomography images with coronal and sagittal reformatted images were created and reviewed CONTRAST MATERIAL: Intravenous: none Oral: None COMPARISON: CT CT RENAL COLIC WO from 04/05/2021 FINDINGS: VISUALIZED LUNG BASES: No nodules nor pleural effusions evident. ABDOMEN: There is no ascites. LIVER: There are no obvious focal hepatic lesions evident of this noninfused study. There is an morongo ent of a [place] steatosis again noted. GALLBLADDER/BILIARY: The gallbladder is again noted be surgically absent. CBD is not dilated. PANCREAS: No evidence of pancreatic mass nor dilatation of the pancreatic duct. SPLEEN: Spleen is not enlarged. No obvious intrasplenic lesions. ADRENALS: There are no significant adrenal masses. KIDNEYS:No cysts evident. No solid renal masses. No calculi nor hydronephrosis. . ABDOMINAL AORTA: Abdominal aorta is not enlarged. LYMPH NODES: There is no retroperitoneal nor paraaortic adenopathy. ABDOMINAL WALL: No evidence of significant anterior abdominal wall nor inguinal hernia. GI: There is no evidence of bowel obstruction, free air, nor abscess. PELVIS: LYMPH NODES: There is no intrapelvic nor inguinal adenopathy. GI: No evidence of appendicitis.No evidence of sigmoid diverticulitis. URINARY BLADDER: No calculi nor obvious masses evident REPRODUCTIVE: Uterus is again noted be surgically absent. There is a cyst in the right adnexa eviden t which is probably ovarian, measuring 3.5 by 2.8 cm. There is a tiny amount of free fluid in the de pendent aspect of the pelvis, more so than previous. The left ovary is not identified OSSEOUS: No significant osseous lesions. IMPRESSION: 1. No evidence of urinary tract calculi. No hydronephrosis nor hydroureter. No calculi evident the urinary bladder. 2. The uterus is surgically absent. There is a 35 x 28 millimeter cyst in the right adnexa which is presumably in the right ovary. Left ovary is not seen. There is a tiny amount of fluid in the depen dent aspect of the pelvis. 3. No evidence of appendicitis nor acute diverticulitis. Called by myself to ER provider. RADIATION DOSE DELIVERED: 889.99mGy.cm Total DLP DATA REPOSITORY: All CT scans at this facility are submitted to the National Radiology Data Registry (NRDR) Dose Index Registry (DIR) with the [employer] (ACR). RADIATION OPTIMIZATION: All CT scans at this facility use at least one of these dose optimization te chniques: automated exposure control; mA and/or kV adjustment per patient size (includes targeted exa ms where dose is matched to clinical indication); or iterative reconstruction.
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
[2021-08-03 14:23] LABS: Abs Immature Grans 0.01 10^3/uL (0.0-0.06); Absolute Basophil Count 0.03 10^3/uL (0.0-0.2); Absolute Eosinophil Count 0.07 10^3/uL (0.0-0.7); Absolute Lymphocyte Count 1.95 10^3/uL (1.2-3.4); Absolute Monocyte Count 0.47 10^3/uL (0.1-0.8); Absolute Neutrophil Count 4.05 10^3/uL (1.2-6.7); Basophils % 0.5; Eosinophils % 1.1; HCT 38.7 % (36.0-46.0); HGB 13.1 g/dL (11.2-15.7); Immature Grans % 0.2; Lymphocytes % 29.6; MCH 32.3 pg (27.0-33.0); MCHC 33.9 % (32.0-36.0); MCV 95 fL (80-95); MPV 10.5 fL (8.0-11.0); Monocytes % 7.1; Neutrophils % 61.5; Platelet Count 190 10^3/uL (130-400); RBC 4.06 10^6/uL (3.93-5.22); RDW 11.9 % (11.7-14.6); RDW-SD 42.2 fL; WBC 6.58 10^3/uL (4.4-10.8)
[2021-08-03] MEDS: MORPHine 10 MG/ML VIAL 2 MG IVP ×2 (14:27→15:17)
[2021-08-03] MEDS: Ondansetron 4 MG/2 ML VIAL IVP (14:29)
[2021-08-03] MEDS: Normal Saline 500 ML IV (14:50)
[2021-08-03 14:51] LABS: ALT 24 U/L (14-59); AST 14 U/L (15-37); Albumin 3.6 g/dL (3.4-5.0); Alkaline Phosphatase 73 U/L (46-116); Anion Gap 7.2 mmol/L (3-11); BUN 9 mg/dL (7-18); Bilirubin, Total 0.3 mg/dL (0.2-1.0); CO2 26.8 mmol/L (21.0-32.0); CREATININE 0.8 mg/dL (0.55-1.02); Calcium 8.1 mg/dL (8.5-10.1); Chloride 109 mmol/L (98-107); Glucose 96 mg/dL (74-106); Potassium 3.6 mmol/L (3.5-5.1); Sodium 143 mmol/L (136-145); Total Protein 6.6 g/dL (6.4-8.2)
--- NOTE | 2021-08-03 15:07 | NUR.NOTE ---
pt states still having pain. provider updated.
[2021-08-03 15:39] VITALS: PULSE 78; RESP 16; O2SAT 98
== END 2021-08-03 15:45 | disposition home or self-care (01) ==
PROVIDERS: Emergency Provider Registered Nurse Emergency; PCP Family Medicine
DX: R10.9 Unspecified abdominal pain (principal); N83.291 Other ovarian cyst, right side
CPT/HCPCS: 80053; 96361; 96374; 96375; 99284; 74176; 81003; 81015; 85025; 87086; J2270; J2405

== ENCOUNTER 2021-10-09 20:54 | Emergency (ER) | payer MEDICAID, SELFPAY ==
[2021-10-09 20:57] VITALS: BP 153/80; PULSE 78; RESP 16; TEMP 37.1; O2SAT 98
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
== END 2021-10-09 22:04 | disposition home or self-care (01) ==
PROVIDERS: Emergency Provider Physician Assistant; PCP Family Medicine
DX: L73.2 Hidradenitis suppurativa (principal); F17.210 Nicotine dependence, cigarettes, uncomplicated; L02.411 Cutaneous abscess of right axilla
CPT/HCPCS: 10060; 99283; 99284

== ENCOUNTER 2022-01-04 07:13 | Emergency (ER) | payer MEDICAID, SELFPAY ==
[2022-01-04 07:17] VITALS: BP 134/85; PULSE 77; RESP 17; TEMP 36.5; O2SAT 98
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
== END 2022-01-04 07:41 | disposition home or self-care (01) ==
PROVIDERS: Emergency Provider Student in an Organized Health Care Education/Training Program; PCP Family Medicine
DX: L73.2 Hidradenitis suppurativa (principal); F17.210 Nicotine dependence, cigarettes, uncomplicated; Z87.442 Personal history of urinary calculi; Z79.84 Long term (current) use of oral hypoglycemic drugs
CPT/HCPCS: 10160; 99284

== ENCOUNTER 2022-01-14 06:44 | Emergency (ER) | payer MEDICAID, SELFPAY ==
[2022-01-14 06:52] VITALS: BP 134/74; PULSE 84; RESP 19; TEMP 37.2; O2SAT 100
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
[2022-01-14] MEDS: oxyCODONE 5 MG TAB PO ×2 (08:08→09:31)
[2022-01-14] MEDS: Ibuprofen 600 MG TAB PO (08:08)
[2022-01-14] MEDS: Clindamycin 150 MG CAP 450 MG PO (09:35)
[2022-01-14] MEDS: Clindamycin 150 MG CAP, 12 CAPS/BTL 450 MG PO (09:35)
== END 2022-01-14 09:41 | disposition home or self-care (01) ==
PROVIDERS: Emergency Provider Physician Assistant; PCP Family Medicine
DX: L02.412 Cutaneous abscess of left axilla (principal)
CPT/HCPCS: 10060; 99284

== ENCOUNTER 2022-01-16 11:22 | Emergency (ER) | payer MEDICAID, SELFPAY ==
[2022-01-16 11:24] VITALS: BP 123/78; PULSE 86; RESP 18; TEMP 37.1; O2SAT 978
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
== END 2022-01-16 11:41 | disposition home or self-care (01) ==
PROVIDERS: Emergency Provider Nurse Practitioner Family; PCP Family Medicine
DX: L02.412 Cutaneous abscess of left axilla (principal)

== ENCOUNTER 2022-04-17 19:23 | Emergency (ER) | payer MEDICAID, SELFPAY ==
[2022-04-17 19:27] VITALS: BP 144/66; PULSE 67; RESP 16; TEMP 37.1; O2SAT 98
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
[2022-04-17] MEDS: Clindamycin 150 MG CAP, 12 CAPS/BTL 450 MG PO (20:31)
[2022-04-17] MEDS: Lidocaine 1% Multi-Dose 50 ML VIAL (20:32)
== END 2022-04-17 20:36 | disposition home or self-care (01) ==
PROVIDERS: Emergency Provider Student in an Organized Health Care Education/Training Program; PCP Family Medicine
DX: L73.2 Hidradenitis suppurativa (principal); Z87.442 Personal history of urinary calculi; Z90.49 Acquired absence of other specified parts of digestive tract; Z90.710 Acquired absence of both cervix and uterus
CPT/HCPCS: 10120; 99283; 99284

== ENCOUNTER 2022-04-27 16:51 | Emergency (ER) | payer MEDICAID, SELFPAY ==
[2022-04-27 17:01] VITALS: BP 141/85; PULSE 80; RESP 16; TEMP 37; O2SAT 100
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
[2022-04-27] MEDS: Bacitracin 1 PACKET (17:46)
[2022-04-27] MEDS: Ondansetron O.D.T. 4 MG TABEF, 3 TABS/BTL PO (17:50)
== END 2022-04-27 18:07 | disposition home or self-care (01) ==
PROVIDERS: Emergency Provider Physician Assistant; PCP Family Medicine
DX: L73.2 Hidradenitis suppurativa (principal)
CPT/HCPCS: 10061

== ENCOUNTER 2022-05-01 17:50 | Emergency (ER) | payer MEDICAID, SELFPAY ==
[2022-05-01 17:53] VITALS: BP 150/86; PULSE 79; RESP 18; TEMP 36.8; O2SAT 99
[2022-05-01] MEDS: CLINDAMYCIN 900 MG/50 ML BAG 50 MG IVPB (18:40)
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
== END 2022-05-01 19:35 | disposition home or self-care (01) ==
PROVIDERS: Emergency Provider Physician Assistant; PCP Family Medicine
DX: L73.2 Hidradenitis suppurativa (principal); L02.411 Cutaneous abscess of right axilla
CPT/HCPCS: 96365; 99284

== ENCOUNTER 2022-05-26 11:17 | Emergency (ER) | payer MEDICAID, SELFPAY ==
[2022-05-26 11:20] VITALS: PULSE 84; RESP 18; TEMP 36.7; O2SAT 99
[2022-05-26 11:22] VITALS: BP 131/95
--- NOTE | 2022-05-26 11:30 | DI.CT_ITS ---
Exam(s) CT RENAL COLIC WO EXAM: CT RENAL COLIC WO CLINICAL HISTORY: right flank pain. TECHNIQUE: Imaging Protocol: Axial computed tomography images with coronal and sagittal reformatted images were created and reviewed. CONTRAST MATERIAL: Noncontrast COMPARISON: CT CT RENAL COLIC WO from 08/03/2021 FINDINGS: ABDOMEN: Lung Bases: Normal where visualized. Liver: The liver enlarged with severe hepatic steatosis. No measurable mass. Gallbladder and biliary tract: Status post cholecystectomy. No radiodense calculus or dilation. Pancreas: Normal density, no calcifications or inflammatory process. Spleen: Normal. Kidneys: Normal size, contour and axis. No radiodense stones or obstructive uropathy. No masses seen. Adrenal glands: No masses seen. Abdominal Aorta: Abdominal portion non-dilated. Soft tissues: Unremarkable. PELVIS: Bladder: Symmetric distention, no gross wall thickening. No evidence of stones.No visible mass. Bowel: No obstruction or bowel wall thickening. Appendix normal. Few scattered diverticular noted. No diverticulitis or evidence of colitis. Reproductive: Status post hysterectomy. Ovaries unremarkable. Previously noted cyst no longer prese nt. Peritoneal cavity: No ascites, collection or mesenteric inflammatory response. Bones: Unremarkable for age.. IMPRESSION: Severe hepatic steatosis. Exam is otherwise unremarkable. RADIATION DOSE DELIVERED: 931.19mGy.cm Total DLP DATA REPOSITORY: All CT scans at this facility are submitted to the National Radiology Data Registry (NRDR) Dose Index Registry (DIR) with the [employer] (ACR). RADIATION OPTIMIZATION: All CT scans at this facility use at least one of these dose optimization te chniques: automated exposure control; mA and/or kV adjustment per patient size (includes targeted exa ms where dose is matched to clinical indication); or iterative reconstruction.
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
[2022-05-26 11:46] LABS: Bilirubin Negative (Negative); Blood Large (Negative); Clarity Cloudy (Clear); Glucose Negative (Negative); Ketones Negative (Negative); Leukocyte Esterase Negative (Negative); Nitrite Negative (Negative); Specific Gravity >= 1.030 (1.005-1.025); Urobilinogen 0.2 mg/dL (Up to 0.2); pH 5.5 (5-8)
[2022-05-26] MEDS: Normal Saline 1,000 ML 1000 ML IV (11:47)
[2022-05-26] MEDS: fentaNYL 100 MCG/2 ML VIAL 75 MCG IVP (11:47)
[2022-05-26] MEDS: Ondansetron 4 MG/2 ML VIAL IVP (11:47)
[2022-05-26 11:49] LABS: Abs Immature Grans 0.04 10^3/uL (0.0-0.06); Absolute Basophil Count 0.03 10^3/uL (0.0-0.2); Absolute Eosinophil Count 0.07 10^3/uL (0.0-0.7); Absolute Lymphocyte Count 1.88 10^3/uL (1.2-3.4); Absolute Monocyte Count 0.27 10^3/uL (0.1-0.8); Absolute Neutrophil Count 3.45 10^3/uL (1.2-6.7); Basophils % 0.5; Eosinophils % 1.2; HCT 40.7 % (36.0-46.0); HGB 14.6 g/dL (11.2-15.7); Immature Grans % 0.7; Lymphocytes % 32.8; MCH 34.6 pg (27.0-33.0); MCHC 35.9 % (32.0-36.0); MCV 96 fL (80-95); MPV 9.7 fL (8.0-11.0); Monocytes % 4.7; Neutrophils % 60.1; Platelet Count 198 10^3/uL (130-400); RBC 4.22 10^6/uL (3.93-5.22); RDW 12.4 % (11.7-14.6); RDW-SD 42.9 fL; WBC 5.74 10^3/uL (4.4-10.8)
[2022-05-26 11:53] LABS: Bacteria Rare HPF (Negative); Crystals Negative HPF (Negative); Epithelial Cells Moderate HPF (Negative); Mucus Negative (Negative); RBC >50 HPF (0-2)
[2022-05-26 11:54] LABS: C & S Indicated? No
[2022-05-26 12:04] LABS: ALT 23 U/L (14-59); AST 11 U/L (15-37); Albumin 3.9 g/dL (3.4-5.0); Alkaline Phosphatase 73 U/L (46-116); Anion Gap 11.7 mmol/L (3-11); BUN 9 mg/dL (7-18); Bilirubin, Total 0.2 mg/dL (0.2-1.0); CO2 21.3 mmol/L (21.0-32.0); CREATININE 0.8 mg/dL (0.55-1.02); Calcium 8.3 mg/dL (8.5-10.1); Chloride 107 mmol/L (98-107); Estimated GFR 98.48 (mL/min/1.73m2); Glucose 129 mg/dL (74-106); Lipase 18 U/L (16-77); Magnesium 1.9 mg/dL (1.8-2.4); Potassium 3.7 mmol/L (3.5-5.1); Sodium 140 mmol/L (136-145); Total Protein 7.1 g/dL (6.4-8.2)
--- NOTE | 2022-05-26 12:11 | NUR.NOTE ---
MD Quan aware that pt is in pain
[2022-05-26 13:33] VITALS: BP 143/101; PULSE 73; RESP 18; TEMP 37.4; O2SAT 96
[2022-05-26 13:36] VITALS: BP 143/101; PULSE 73; RESP 18; TEMP 37.4; O2SAT 96
== END 2022-05-26 13:35 | disposition home or self-care (01) ==
PROVIDERS: Emergency Provider Emergency Medicine; PCP Family Medicine
DX: R10.9 Unspecified abdominal pain (principal); R11.0 Nausea; M54.50 Low back pain, unspecified; R31.9 Hematuria, unspecified
CPT/HCPCS: 36415; 80053; 83690; 96361; 96374; 96375; 99284; 74176; 81003; 81015; 83735; 85025; J2405; J3010

== ENCOUNTER 2022-06-07 18:20 | Emergency (ER) | payer MEDICAID, SELFPAY ==
[2022-06-07 18:24] VITALS: BP 140/83; PULSE 95; RESP 18; O2SAT 100
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
[2022-06-07] MEDS: oxyCODONE 5 MG TAB PO (19:12)
--- NOTE | 2022-06-07 19:15 | NUR.NOTE ---
Referral faxed to [facility] [place] to f/u 06/08/22 for corneal ulcer and keratitis.Nursing Note:
[2022-06-07 19:24] VITALS: BP 144/91; PULSE 101; RESP 16; TEMP 36.7; O2SAT 97
== END 2022-06-07 19:26 | disposition home or self-care (01) ==
PROVIDERS: Emergency Provider Emergency Medicine; PCP Family Medicine
DX: K04.7 Periapical abscess without sinus (principal); L73.2 Hidradenitis suppurativa
CPT/HCPCS: 99283; 99284

== ENCOUNTER 2022-06-18 14:07 | Emergency (ER) | payer MEDICAID, SELFPAY ==
[2022-06-18 14:09] VITALS: BP 137/96; PULSE 77; RESP 16; TEMP 36.7; O2SAT 100
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
--- NOTE | 2022-06-18 14:28 | NUR.NOTE ---
Nursing Note: Pt c/o abscess in R axilla since yesterday. Pt rates pain 12/27. Denies any fevers or n/v. Redness noted under R axilla, no drainage noted. A&O. Resp even and unlabored. Will cont to monitor.
[2022-06-18] MEDS: Clindamycin 300 MG CAP PO (14:44)
== END 2022-06-18 14:53 | disposition home or self-care (01) ==
PROVIDERS: Emergency Provider Emergency Medicine; PCP Family Medicine
DX: L73.2 Hidradenitis suppurativa (principal)
CPT/HCPCS: 99284

== ENCOUNTER 2022-08-09 17:37 | Emergency (ER) | payer MEDICAID, SELFPAY ==
[2022-08-09 17:48] VITALS: BP 132/83; PULSE 82; TEMP 36.7; O2SAT 97
--- NOTE | 2022-08-09 18:15 | DI.RAD_ITS ---
Exam(s) XR LUMBAR SPINE COMPLETE EXAM: XR LUMBAR SPINE COMPLETE CLINICAL HISTORY: Lumbar back pain. TECHNIQUE: 2D digital imaging was performed. COMPARISON: No exams were available for comparison FINDINGS: Five views There is mild scoliosis convex right and there is also transitional anatomy here, with a transitional lumbosacral vertebra evident. No compression fractures nor listhesis. No pars defects. Disc spaces exhibit normal height. Minimal facet joint degenerative changes at the lower levels. Sa croiliac joints appear unremarkable. IMPRESSION: No obvious acute findings but there is transitional anatomy here as described above. If clinically i ndicated follow-up MRI can be performed. DATA REPOSITORY: RADIATION DOSE DELIVERED:
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
[2022-08-09 18:49] LABS: Bilirubin Negative (Negative); Blood Negative (Negative); Clarity Sl Cloudy (Clear); Glucose Negative (Negative); Ketones Negative (Negative); Leukocyte Esterase Negative (Negative); Nitrite Negative (Negative); Specific Gravity >= 1.030 (1.005-1.025); Urobilinogen 0.2 mg/dL (Up to 0.2); pH 5.5 (5-8)
[2022-08-09] MEDS: predniSONE 20 MG TAB 60 MG PO (19:08)
--- NOTE | 2022-08-09 19:17 | DI.VRAD_ITS ---
PROCEDURE INFORMATION: Exam: XR Lumbosacral Spine Exam date and time: 08/09/2022 6:59 PM Age: 36 years old Clinical indication: Sciatica; Bilateral; Patient HX: Lumbar back pain TECHNIQUE: Imaging protocol: Radiologic exam of the lumbosacral spine. Views: 4 or 5 views. COMPARISON: CT RENAL COLIC WO 05/26/2022 12:42 PM FINDINGS: Bones/joints: Mild dextroscoliosis of the upper lumbar spine No acute fracture. Foraminal stenosis at L5-S1 suspected Soft tissues: Unremarkable. Surgical clips right upper quadrant IMPRESSION: No acute findings. Mild dextroscoliosis of the upper lumbar spine Bilateral foraminal stenosis at L5-S1 suspected as previously observed on recent abdomen and pelvis CT Dictated and Authenticated by: Santos Mayfield MD. Ordering:TAMMY Gray MD
== END 2022-08-09 19:38 | disposition home or self-care (01) ==
PROVIDERS: Emergency Provider Registered Nurse Emergency; PCP Family Medicine
DX: M54.32 Sciatica, left side (principal); M54.59 Other low back pain
CPT/HCPCS: 81025; 99283; 72110; 81003; J7512

== ENCOUNTER 2022-08-16 07:26 | Emergency (ER) | payer MEDICAID, SELFPAY ==
[2022-08-16 07:33] VITALS: BP 124/84; PULSE 88; RESP 16; TEMP 37; O2SAT 100
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
[2022-08-16 10:12] VITALS: BP 126/81; PULSE 69; RESP 16; TEMP 36.7; O2SAT 96
--- NOTE | 2022-08-16 13:51 | NUR.NOTE ---
Nursing Note: Patient called stating her work needed to have a time length for light duty. I spoke to Dr. Andre and he stated until cleared by PCP. He did a second hand written work note that was fax emailed to her employer. Stating this. Form sent to medical records for scanning. Sent to: [email or web address]
== END 2022-08-16 10:13 | disposition home or self-care (01) ==
PROVIDERS: Emergency Provider Student in an Organized Health Care Education/Training Program; PCP Family Medicine
DX: M54.32 Sciatica, left side (principal); M54.59 Other low back pain
CPT/HCPCS: 99283; 99284

== ENCOUNTER 2022-08-29 17:25 | Emergency (ER) | payer MEDICAID, SELFPAY ==
[2022-08-29 17:27] VITALS: BP 143/83; PULSE 79; RESP 17; TEMP 36.9; O2SAT 97
[2022-08-29] MEDS: Clindamycin 150 MG CAP, 12 CAPS/BTL 450 MG PO (19:15)
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
== END 2022-08-29 19:22 | disposition home or self-care (01) ==
PROVIDERS: Emergency Provider Physician Assistant; PCP Family Medicine
DX: L73.2 Hidradenitis suppurativa (principal)
CPT/HCPCS: 99283

== ENCOUNTER 2022-09-04 18:03 | Emergency (ER) | payer MEDICAID, SELFPAY ==
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
[2022-09-04 18:07] VITALS: BP 148/85; PULSE 80; RESP 16; TEMP 37.3; O2SAT 99
[2022-09-04] MEDS: Ondansetron O.D.T. 4 MG TABEF (18:45)
[2022-09-04] MEDS: oxyCODONE 5 MG TAB PO (18:51)
[2022-09-04] MEDS: Acetaminophen 500 MG TAB 1000 MG PO (18:52)
[2022-09-04] MEDS: Doxycycline Hyclate 100 MG CAP PO (18:53)
[2022-09-04 19:02] VITALS: BP 152/78; PULSE 68; O2SAT 97
== END 2022-09-04 19:04 | disposition home or self-care (01) ==
PROVIDERS: Emergency Provider Emergency Medicine; PCP Family Medicine
DX: L03.112 Cellulitis of left axilla (principal); L73.2 Hidradenitis suppurativa; R11.0 Nausea
CPT/HCPCS: 76882; 99284; 99283

== ENCOUNTER 2022-09-12 02:01 | Outpatient (CLI) | payer MEDICAID, SELFPAY ==
--- NOTE | 2022-09-12 07:15 | DI.MRI_ITS ---
Exam(s) MR LUMBAR SPINE WO EXAM: MR LUMBAR SPINE WO CLINICAL HISTORY: low back pain WITH LT SCIATICA,M54.32. TECHNIQUE: Multiplanar multisequence MRI of the Lumbar spine was performed. COMPARISON: CR,XR XR LUMBAR SPINE COMPLETE from 08/09/2022 FINDINGS: Bones: The last intervertebral disc space is designated the L5/S1 level for the numbering purpose of this examination. The vertebral body heights are well maintained. There is a transitional lumbosacr al vertebra noted. There are 5 lumbar type [id number] vertebral bodies. The transitional vertebr al body will be designated S1 for numbering purposes. There is a right convex lower thoracic and uppe r lumbar scoliosis. The signal characteristics are unremarkable. Cord: The conus tip ends at the T12 level. It is of normal size and signal intensity. T12-L1: No disc herniations or bulges are present. No central spinal canal or neural foraminal stenos is. L1-2: No disc herniations or bulges are present. No central spinal canal or neural foraminal stenosis . L2-3: No disc herniations or bulges are present. No central spinal canal or neural foraminal stenosis . L3-4: No disc herniations or bulges are present. No central spinal canal or neural foraminal stenosis . L4-5: No disc herniations or bulges are present. No central spinal canal or neural foraminal stenosis . L5-S1: There are degenerative changes of the facets. There is a mild diffuse disc bulge. The findings do result in mild narrowing of the central spinal canal. No neural foraminal stenosis is present. Soft tissues: The visualized SI joints and sacrum are well maintained. The paraspinal soft tissues ar e unremarkable. IMPRESSION: 1. Degenerative changes at L5-S1 resulting in very mild narrowing of the central spinal canal. 2. 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 3. Right convex lower thoracic and upper lumbar scoliosis. DATA REPOSITORY:
== END 2022-09-12 02:21 ==
LOC: DI 02:01
PROVIDERS: PCP Family Medicine; Visit Provider Family Medicine
DX: M54.32 Sciatica, left side (principal); M48.061 Spinal stenosis, lumbar region without neurogenic claudication; M41.85 Other forms of scoliosis, thoracolumbar region
CPT/HCPCS: 72148

== ENCOUNTER 2022-09-12 17:20 | Emergency (ER) | payer MEDICAID, SELFPAY ==
[2022-09-12 17:28] VITALS: BP 137/82; PULSE 80; RESP 18; TEMP 37.2; O2SAT 98
--- NOTE | 2022-09-12 18:21 | NUR.NOTE ---
Nursing Note: Manny Perez Access pt LWBS @ [id number]
== END 2022-09-12 18:20 | disposition left against medical advice (07) ==
LOC: ER 17:30
PROVIDERS: PCP Family Medicine
DX: Z53.21 Procedure and treatment not carried out due to patient leaving prior to being seen by health care provider (principal)

== ENCOUNTER 2022-10-28 13:52 | Emergency (ER) | payer MEDICAID, SELFPAY ==
[2022-10-28 14:03] VITALS: BP 124/70; PULSE 83; RESP 16; TEMP 37.1; O2SAT 96
--- NOTE | 2022-10-28 15:27 | ED.GENADUL_ITS ---
Discharge Plan Disposition Patient Disposition: Home Condition: Improving Discharge Details Clinical Impression: Axillary hidradenitis suppurativa, Traumatic ecchymosis of right lower leg, Lymphedema of left lower extremity Primary Care Provider: Sharon Leach ED Provider: Kimi Segal Home Meds and New Rx's Prescriptions: New clindamycin HCl [Cleocin HCl] 300 mg capsule 300 mg PO Q8H Qty: 20 0RF Rx Instructions: Take a probiotic while on antibiotics No Action sertraline 50 mg tablet 50 mg PO HS Qty: 90 3RF trazodone 100 mg tablet 100 mg PO HS Qty: 90 4RF lidocaine 5 % ointment 1 applic topical BID PRN (Reason: pain) Qty: 50 0RF clindamycin phosphate 1 % gel, once daily 1 applic topical DAILY Qty: 60 3RF ibuprofen 800 mg tablet 800 mg PO Q8H PRN (Reason: pain) Qty: 30 1RF Saccharomyces boulardii [Florastor] 250 mg capsule 250 mg PO BID Qty: 14 0RF Discharge Instructions Instructions: Hidradenitis Suppurativa (ED) Additional Instructions: Start clindamycin 300 mg every 8 hours for 1 week. We recommend he take a probiotic while on antibiotics. Call your primary care provider in the morning for follow-up appointment and recheck. Return here for any new or worrisome symptoms or if the lesions in your right arm do not improve or get worse despite antibiotics. Discharge Data Discharge Physician: Kimi Segal [facility] General Date/Time Provider Initiated Documentation: 10/28/22 13:54 . Limitations to Documentation: no limitations . Information obtained by: patient and family (Mom) . HPI Narrative: Time seen was 1530 in bed 11. The patient is a 37-year-old female with history of chronic lymphedema of the left foot and hidradenitis affecting her axilla and groin. She was sent from primary care for concern of DVT because of an area of ecchymosis on the right leg in the medial popliteal fossa. The patient does smoke cigarettes but does not have any history of DVT and is not on any exogenous hormones. She states that she noticed the discoloration on her right leg about 2 weeks ago. She states that she saw her primary care because she has a few areas under the right axilla which are tender area. 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 She states that she usually tries antibiotics but occasionally needs incision and drainage. 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 She has had recurrent cellulitis in the leg. She has never had hidradenitis in the calf or knee. She is complaining of mild pain and swelling under the left axilla, which is typical of her previous presentations of hidradenitis. She states that the pain in both the right axilla and the right lower extremity are mild. She has not had fever or chills or numbness or tingling. The chronic lymphangitis of the left lower extremity occurred after an infection as a child. 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 Related Data Home Medications Medication Instructions Recorded Confirmed ibuprofen 800 mg tablet 800 mg PO Q8H PRN pain #30 tabs 02/27/20 10/28/22 lidocaine 5 % topical ointment 1 applic topical BID PRN pain #50 01/13/22 10/28/22 grams Saccharomyces boulardii 250 mg 250 mg PO BID #14 caps 05/01/22 10/28/22 capsule (Florastor) sertraline 50 mg tablet 50 mg PO HS #90 tabs 05/04/22 10/28/22 trazodone 100 mg tablet 100 mg PO HS #90 tabs 05/04/22 10/28/22 clindamycin phosphate 1 % topical 1 applic topical DAILY #60 grams 07/20/22 10/28/22 gel, once daily clindamycin HCl 300 mg capsule 300 mg PO Q8H #20 caps 10/28/22 (Cleocin HCl) Previous Rx's Medication Instructions Recorded ibuprofen 800 mg tablet 800 mg PO Q8H PRN pain #30 tabs 02/27/20 lidocaine 5 % topical ointment 1 applic topical BID PRN pain #50 01/13/22 grams Saccharomyces boulardii 250 mg 250 mg PO BID #14 caps 05/01/22 capsule (Florastor) sertraline 50 mg tablet 50 mg PO HS #90 tabs 05/04/22 trazodone 100 mg tablet 100 mg PO HS #90 tabs 05/04/22 clindamycin phosphate 1 % topical 1 applic topical DAILY #60 grams 07/20/22 gel, once daily clindamycin HCl 300 mg capsule 300 mg PO Q8H #20 caps 10/28/22 (Cleocin HCl) Allergies Allergy/AdvReac Type Severity Reaction Status Date / Time cyclobenzaprine Allergy Intermediate Hives Unverified 10/28/22 14:06 [From Flexeril] cephalexin [Cephalexin] AdvReac Severe Abdominal Verified 10/28/22 14:06 Cramps vancomycin AdvReac Severe diarrhea, Verified 10/28/22 14:06 redness acetaminophen AdvReac Intermediate Other (See Verified 10/28/22 14:06 Comment) Cephalosporins AdvReac Intermediate Diarrhea Verified 10/28/22 14:06 codeine phosphate AdvReac Intermediate Vomiting Verified 10/28/22 14:06 [From Tylenol-Codeine #3] ketorolac [From Toradol] AdvReac Intermediate Nausea Verified 10/28/22 14:06 silver AdvReac Intermediate Skin Rash Verified 10/28/22 14:06 [From Tegaderm AG Mesh] tramadol AdvReac Intermediate Diarrhea Verified 10/28/22 14:06 General Stated Complaint: Cellulitis HALINA: 4 PFSH All Active Problems (Updated 10/28/22 @ 16:48 by Kimi Segal MD) Anxiety (Acute 02/11/13) panic Lymphedema of left lower extremity (Chronic) Loin pain hematuria syndrome (Acute) never officially diagnosed by new business clerk Bilateral ovarian cysts (Chronic) seen on multiple imaging studies Hidradenitis suppurativa (Acute) bilateral, managed at [facility] derm. Pending Humira start. [facility] did pain clinic referral. Obesity without serious comorbidity (Acute) Low HDL (under 40) (Acute) Palpable mass of soft tissue of knee (Acute) Axillary hidradenitis suppurativa (Acute) Traumatic ecchymosis of right lower leg (Acute) Medical History Anemia Endometriosis, unspecified LAPROSCOPY 2009 hysterect 2019 on OC for control Hepatic steatosis Hepatomegaly History of renal calculi History of tobacco abuse quit 01/2022 Vitamin D deficiency Surgical History EGD - MAC Extracorporeal shock wave lithotripsy Hx of hand surgery L hand, pt. reports nerves were fixed S/P laparoscopic assisted vaginal hysterectomy (LAVH) ovaries intact S/P laparoscopic cholecystectomy (2017) S/P laparoscopy (2010) stage 1 endometriosis Status post endovenous radiofrequency ablation (RFA) of saphenous vein for venous insufficiency 09/06/2018 wisdom teeth extraction Family History Mother Diabetes Heart disease Hyperlipidemia Father Colon cancer Heart disease Hyperlipidemia Sister Hyperlipidemia Grandfather Diabetes Grandfather Diabetes Hyperlipidemia Asthma Grandmother Diabetes Personal history of malignant neoplasm Breast Heart disease Hyperlipidemia Grandmother No problems noted. 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 Pets and animals: Yes Pets and animals: dog(s) Sexually active: Yes Do you think of yourself as: straight/heterosexual Current gender identity: female What is your relationship status?: never How often do you talk on the phone with friends or family?: three or more times per week How often do you get together with friends or relatives?: once per week How often do you attend buddhist or mu-ism services?: 1-3 times per year Do you belong to any clubs or organized social groups?: no Panel score (0-1 are the most socially isolated patients): 1 What type of physical activity do you participate in: other Duration: > 90 minutes/day Frequency: 5-6 times per week Melida/Taoist: None Do you feel safe at home: Yes Do you feel safe in your relationship?: Yes Exam Const General: cooperative, healthy appearing, comfortable, no acute distress, well developed, well groomed and well hydrated Nutritional Appearance: average body habitus and well nourished Orientation: alert, awake and oriented x3 HENMT Head: normal to inspection, normocephalic and atraumatic Ears: hearing grossly normal bilaterally and external ears normal General nose exam: external nose normal, nares normal and no nasal discharge Face and sinus: normal facial exam, sinuses nontender and face symmetric Mouth: oral mucosae normal, lip normal, tongue normal, oropharynx normal, moist mucous membranes and other (Normal phonation. The patient is handling secretions.) Throat: posterior oropharynx normal and uvula midline Eyes General: appearance normal, both eyes and all related structures Eyelids: eyelids normal Conjunctivae: conjunctivae normal Sclera: sclerae normal Cornea: corneas normal Pupils: PERRL EOM: EOM intact bilaterally and No nystagmus Neck Neck: normal visual inspection, full ROM, no lymphadenopathy, no meningeal signs, trachea midline and supple Lymphatic: no lymphadenopathy noted Chest Chest: normal inspection of the chest Resp Effort & Inspection: normal respiratory effort, able to speak in complete sentences, no audible wheezes, no nasal flaring, no respiratory distress, no retractions, no stridor, not tachypneic, no tracheal deviation, no use of accessory muscles, No prolonged expiratory phase and other (Normal inspiratory to expiratory ratio.) Auscultation: clear to auscultation bilaterally, no rales, no rhonchi, no wheezes and no rubs Tactile Fremitus: tactile fremitus absent Cardio Jugular venous pressure: no JVD Palpation: normal PMI Rate: regular rate Rhythm: regular rhythm Heart Sounds: S1 normal, S2 normal, no gallops, no murmurs and no rubs GI Inspection: normal to inspection and non-distended Palpation: soft, no hepatosplenomegaly, no guarding and nontender Percussion: normal to percussion Auscultation: normal bowel sounds General: No CVA tenderness Back/Spine/Pelvis Back: no CVA tenderness and No back tenderness Cervical Spine: normal cervical lordosis, cervical ROM normal, No cervical muscular tenderness, No pain with cervical ROM, No cervical spinal tenderness and No step off deformity Thoracic/Lumbar Spine: thoracic and lumbar spine normal to inspection, No thoracic spinal tenderness and No lumbar spinal tenderness Pelvis: no pain with anterior-posterior compression and no pain with lateral compression Skin Other: The patient has 3 small tender areas of the right axilla measuring 1 to 2 cm in diameter. The largest is slightly tender and mildly erythematous. There is no evidence of cellulitis. The left lower extremity does reveal chronic lymphangitis. The right lower extremity reveals an ecchymotic area on the popliteal fossa. No Homans signs or cords. She is distal neurovascularly intact. There are some small lesions that appear to be insect bites of the right thigh none of which appeared to be fluctuant. No evidence of cellulitis. She does have chronic adenopathy of the right inguinal area. Neuro General: patient alert, patient awake, patient oriented x3, moves all extremities, no meningeal signs, no focal motor deficits and CN's II-XI intact bilaterally Cranial Nerves: CN's II-XI intact bilaterally, PERRL, accommodation normal, EOM intact bilaterally, no nystagmus, facial strength normal, tongue midline, hearing normal and no nystagmus Cognition: normal cognition Speech: speech normal Gait: normal gait Motor: muscle tone normal throughout and strength 5/5 throughout Sensory Exam: no sensory deficits noted Psych Appearance: grossly normal Affect: normal affect Attitude: cooperative Thought Process: normal Thought Content: normal Insight: insight good Judgment: judgment good Other: The patient appears to have capacity make medical decisions. Course Vital Signs Vital signs: Vital Signs Temperature 37.1 C 10/28/22 14:03 Pulse 83 10/28/22 14:03 Respiratory Rate 16 10/28/22 14:03 Blood Pressure 124/70 10/28/22 14:03 Pulse Oximetry 96 10/28/22 14:03 Temperature 37.1 C 10/28/22 14:03 Temperature Source Skin 10/28/22 14:03 Pulse 83 10/28/22 14:03 Respiratory Rate 16 10/28/22 14:03 Respiratory Effort Normal, Non-Labored 10/28/22 15:11 Blood Pressure 124/70 10/28/22 14:03 Blood Pressure Position Sitting 10/28/22 14:03 Pulse Oximetry 96 10/28/22 14:03 Oxygen Delivery Method Room Air 10/28/22 14:03 Oxygen Flow Rate 0 10/28/22 14:03 Pain Level 9 10/28/22 14:03
--- NOTE | 2022-10-28 15:30 | DI.US_ITS ---
Exam(s) US LOWER EXTREMITY VENOUS RT EXAM: US LOWER EXTREMITY VENOUS RT CLINICAL HISTORY: rule out DVT. TECHNIQUE: Lower extremity venous ultrasound performed using grayscale, color-flow, and spectral Do ppler analysis. COMPARISON: No exams were available for comparison FINDINGS: The common femoral, femoral and popliteal veins demonstrate normal compressibility, augmentation, and color Doppler. The posterior tibial veins are patent. No saphenous vein thrombosis or other superfi cial venous thrombosis is seen. No hematoma or Turpin's cyst is seen. IMPRESSION: Negative lower extremity ultrasound. No evidence of DVT. DATA REPOSITORY:
[2022-10-28] MEDS: Clindamycin 300 MG CAP PO (16:22)
[2022-10-28 16:59] VITALS: BP 126/82; PULSE 82; RESP 18; TEMP 36.8; O2SAT 98
== END 2022-10-28 17:01 | disposition home or self-care (01) ==
PROVIDERS: Emergency Provider Emergency Medicine Emergency Medical Services; PCP Family Medicine
DX: L73.2 Hidradenitis suppurativa (principal); R23.3 Spontaneous ecchymoses; I89.1 Lymphangitis; F17.210 Nicotine dependence, cigarettes, uncomplicated
CPT/HCPCS: 99284; 93971; 99283

== ENCOUNTER 2022-10-30 17:17 | Emergency (ER) | payer MEDICAID, SELFPAY ==
[2022-10-30 17:22] VITALS: BP 141/73; PULSE 68; RESP 20; TEMP 36.9; O2SAT 99
--- NOTE | 2022-10-30 18:09 | ED.GENADUL_ITS ---
Discharge Plan Disposition Patient Disposition: Home Condition: Stable Discharge Details Clinical Impression: Axillary hidradenitis suppurativa Primary Care Provider: Sharon Leach ED Provider: Sulema Soriano Home Meds and New Rx's Prescriptions: New doxycycline hyclate 100 mg capsule 100 mg PO BID Qty: 10 0RF tramadol 100 mg tablet 100 mg PO TID PRNQty: 10 0RF Continued sertraline 50 mg tablet 50 mg PO HS Qty: 90 3RF trazodone 100 mg tablet 100 mg PO HS Qty: 90 4RF lidocaine 5 % ointment 1 applic topical BID PRN (Reason: pain) Qty: 50 0RF clindamycin phosphate 1 % gel, once daily 1 applic topical DAILY Qty: 60 3RF ibuprofen 800 mg tablet 800 mg PO Q8H PRN (Reason: pain) Qty: 30 1RF Saccharomyces boulardii [Florastor] 250 mg capsule 250 mg PO BID Qty: 14 0RF Discontinued clindamycin HCl [Cleocin HCl] 300 mg capsule 300 mg PO Q8H Qty: 20 0RF Rx Instructions: Take a probiotic while on antibiotics Discharge Instructions Instructions: Hidradenitis Suppurativa (ED) Referrals: Nanette Whelan MD [ [facility] STAFF PHYSICIAN] - Discharge Data Discharge Date/Time-TO BE ENTERED AT DEPARTURE: 10/30/22 18:25 Medical Decision Making On physical exam patient has old surgical sites from previous I&D's under those areas are 3 small nodular firm areas. They do not appear fluctuant there is no abscess found on bedside ultrasound. There is no surrounding erythema whatsoever she has had no fevers vital signs are stable I am reluctant to change antibiotics but she states with her history antibiotic change has been effective in the past she would like to stop the clindamycin we will start her on doxycycline she also would like something for pain she has an allergy to tramadol which she reports as diarrhea we did discuss this was more of an intolerance and that she can use Imodium if she experiences diarrhea with the medication. I did refer her to surgical services for further evaluation. HPI General Mode of arrival: ambulatory . Date/Time Provider Initiated Documentation: 10/30/22 17:19 . Limitations to Documentation: no limitations . Information obtained by: patient . HPI Narrative: 37-year-old returns with ongoing right axilla pain. She was placed on clindamycin and feels no improvement since. She has had no fevers there is no surrounding erythema. No signs of systemic infection Related Data Home Medications Medication Instructions Recorded Confirmed ibuprofen 800 mg tablet 800 mg PO Q8H PRN pain #30 tabs 02/27/20 10/30/22 lidocaine 5 % topical ointment 1 applic topical BID PRN pain #50 01/13/22 10/30/22 grams Saccharomyces boulardii 250 mg 250 mg PO BID #14 caps 05/01/22 10/30/22 capsule (Florastor) sertraline 50 mg tablet 50 mg PO HS #90 tabs 05/04/22 10/30/22 trazodone 100 mg tablet 100 mg PO HS #90 tabs 05/04/22 10/30/22 clindamycin phosphate 1 % topical 1 applic topical DAILY #60 grams 07/20/22 10/30/22 gel, once daily doxycycline hyclate 100 mg capsule 100 mg PO BID #10 caps 10/30/22 tramadol 100 mg tablet 100 mg PO TID PRN #10 tabs 10/30/22 Previous Rx's Medication Instructions Recorded ibuprofen 800 mg tablet 800 mg PO Q8H PRN pain #30 tabs 02/27/20 lidocaine 5 % topical ointment 1 applic topical BID PRN pain #50 01/13/22 grams Saccharomyces boulardii 250 mg 250 mg PO BID #14 caps 05/01/22 capsule (Florastor) sertraline 50 mg tablet 50 mg PO HS #90 tabs 05/04/22 trazodone 100 mg tablet 100 mg PO HS #90 tabs 05/04/22 clindamycin phosphate 1 % topical 1 applic topical DAILY #60 grams 07/20/22 gel, once daily doxycycline hyclate 100 mg capsule 100 mg PO BID #10 caps 10/30/22 tramadol 100 mg tablet 100 mg PO TID PRN #10 tabs 10/30/22 Allergies Allergy/AdvReac Type Severity Reaction Status Date / Time cyclobenzaprine Allergy Intermediate Hives Unverified 10/28/22 14:06 [From Flexeril] cephalexin [Cephalexin] AdvReac Severe Abdominal Verified 10/28/22 14:06 Cramps vancomycin AdvReac Severe diarrhea, Verified 10/28/22 14:06 redness acetaminophen AdvReac Intermediate Other (See Verified 10/28/22 14:06 Comment) Cephalosporins AdvReac Intermediate Diarrhea Verified 10/28/22 14:06 codeine phosphate AdvReac Intermediate Vomiting Verified 10/28/22 14:06 [From Tylenol-Codeine #3] ketorolac [From Toradol] AdvReac Intermediate Nausea Verified 10/28/22 14:06 silver AdvReac Intermediate Skin Rash Verified 10/28/22 14:06 [From Tegaderm AG Mesh] tramadol AdvReac Intermediate Diarrhea Verified 10/28/22 14:06 General Stated Complaint: GenMedical HALINA: 4 Review of Systems All systems reviewed & are unremarkable except as noted in HPI and below PFSH All Active Problems (Updated 10/30/22 @ 18:10 by Sulema Soriano NP) Anxiety (Acute 02/11/13) panic Lymphedema of left lower extremity (Chronic) 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 Pending Humira start. [facility] did pain clinic referral. Obesity without serious comorbidity (Acute) Low HDL (under 40) (Acute) Palpable mass of soft tissue of knee (Acute) Axillary hidradenitis suppurativa (Acute) Traumatic ecchymosis of right lower leg (Acute) Medical History Anemia Endometriosis, unspecified LAPROSCOPY 2009 hysterect 2019 on OC for control Hepatic steatosis Hepatomegaly History of renal calculi History of tobacco abuse quit 01/2022 Vitamin D deficiency Surgical History EGD - MAC Extracorporeal shock wave lithotripsy Hx of hand surgery L hand, pt. reports nerves were fixed S/P laparoscopic assisted vaginal hysterectomy (LAVH) ovaries intact S/P laparoscopic cholecystectomy (2016) S/P laparoscopy (2009) stage 1 endometriosis Status post endovenous radiofrequency ablation (RFA) of saphenous vein for venous insufficiency 09/06/2018 wisdom teeth extraction Family History Mother Diabetes Heart disease Hyperlipidemia Father Colon cancer Heart disease Hyperlipidemia Sister Hyperlipidemia Grandfather Diabetes Grandfather Diabetes Hyperlipidemia Asthma Grandmother Diabetes Personal history of malignant neoplasm Breast Heart disease Hyperlipidemia Grandmother No problems noted. 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 Pets and animals: Yes Pets and animals: dog(s) Sexually active: Yes Do you think of yourself as: straight/heterosexual Current gender identity: female What is your relationship status?: never How often do you talk on the phone with friends or family?: three or more times per week How often do you get together with friends or relatives?: once per week How often do you attend druze or pentecostal services?: 1-3 times per year Do you belong to any clubs or organized social groups?: no Panel score (0-1 are the most socially isolated patients): 1 What type of physical activity do you participate in: other Duration: > 90 minutes/day Frequency: 5-6 times per week Melida/Mandaen: None Do you feel safe at home: Yes Do you feel safe in your relationship?: Yes Exam Skin Lesions: other (Old surgical scars from I&D's with 3 nodular masses all under 1 cm) Rashes: no rashes and other (No surrounding erythema) Course Vital Signs Vital signs: Vital Signs Temperature 36.9 C 10/30/22 17:22 Pulse 68 10/30/22 17:22 Respiratory Rate 20 10/30/22 17:22 Blood Pressure 141/73 H 10/30/22 17:22 Pulse Oximetry 99 10/30/22 17:22 Temperature 36.9 C 10/30/22 17:22 Temperature Source Oral 10/30/22 17:22 Pulse 68 10/30/22 17:22 Respiratory Rate 20 10/30/22 17:22 Blood Pressure 141/73 H 10/30/22 17:22 Blood Pressure Position Sitting 10/30/22 17:22 Pulse Oximetry 99 10/30/22 17:22 Oxygen Delivery Method Room Air 10/30/22 17:22 Oxygen Flow Rate 0 10/30/22 17:22 Pain Level 8 10/30/22 17:22
--- NOTE | 2022-10-30 18:35 | NUR.NOTE ---
Nursing Note: Medications written as scheduled, pt left without medications. Pt declined Tramadol medication and prescription.
== END 2022-10-30 18:25 | disposition home or self-care (01) ==
PROVIDERS: Emergency Provider Nurse Practitioner Acute Care; PCP Family Medicine
DX: L73.2 Hidradenitis suppurativa (principal); Z87.891 Personal history of nicotine dependence
CPT/HCPCS: 99282

== ENCOUNTER 2022-12-02 10:30 | Emergency (ER) | payer MEDICAID, SELFPAY ==
[2022-12-02 10:36] VITALS: BP 140/86; PULSE 73; RESP 18; TEMP 36.5; O2SAT 97
--- NOTE | 2022-12-02 10:52 | W.ED.GENAD ---
Discharge Plan Disposition Patient Disposition: Home Discharge Details Clinical Impression: Cellulitis Primary Care Provider: Sharon Leach ED Provider: Ezequiel Washburn Home Meds and New Rx's Prescriptions: New cephalexin 500 mg tablet 500 mg PO QID 7 Days Qty: 28 0RF No Action sertraline 50 mg tablet 50 mg PO HS Qty: 90 3RF trazodone 100 mg tablet 100 mg PO HS Qty: 90 4RF triamcinolone acetonide 0.1 % cream 1 applic topical BID Qty: 15 0RF doxycycline hyclate 100 mg capsule 100 mg PO BID Qty: 20 0RF lidocaine 5 % ointment 1 applic topical BID PRN (Reason: pain) Qty: 50 0RF clindamycin phosphate 1 % gel, once daily 1 applic topical DAILY Qty: 60 3RF tramadol 100 mg tablet 100 mg PO TID PRNQty: 10 0RF ibuprofen 800 mg tablet 800 mg PO Q8H PRN (Reason: pain) Qty: 30 1RF Saccharomyces boulardii [Florastor] 250 mg capsule 250 mg PO BID Qty: 14 0RF Discharge Instructions Instructions: Cellulitis (ED) Additional Instructions: As discussed you have been prescribed Keflex. You have a noted side effect to this medication so please contact me tomorrow if you have any GI upset from this med and we will change to another medication. You may apply warm compresses and keep leg elevated. If you have any new or significant worsening of symptoms return to the emergency department for reassessment otherwise follow-up with your primary care provider next week if not improving Stand Alone Forms: Work Release Referrals: Sharon Leach MD [Primary Care Provider] - 5 days (As needed for reassessment or if not improving) Medical Decision Making Patient presenting to the emergency department for chief complaint of right leg redness swelling and pain. She states yesterday she noted a small bug bite but then over the last 24 hours has increased in size pain and discomfort. Patient denies any systemic symptoms. Physical exam shows central area of excoriation with surrounding erythema. No signs of erythema margins, no systemic symptoms, exam otherwise unremarkable. Exam consistent with cellulitis. Discussed different medications given patient's multiple allergies. After discussion of medication options and antibiotics patient and I decided on use of Keflex given that she only has GI upset which she states she feels may be less since she started taking probiotics. Patient informed to contact me tomorrow or as needed to change antibiotic and return for any new or significant worsening of condition. After discussion of diagnosis and plan of care patient has no further needs, questions, or concerns and states clear understanding to return to the emergency department for any worsening symptoms. This documentation was generated using [employer] dictation system, please disregard any oddities of phrase or misspellings. HPI General Mode of arrival: ambulatory. Date/Time Provider Initiated Documentation: 12/02/22 10:31. Limitations to Documentation: no limitations. Information obtained by: patient and RN notes reviewed. History of Present Illness 37 year old F presents to the emergency department with the chief complaint of Right leg infection, described as moderate and similar to prior episodes, and is localized to the right and lower extremity. Patient reports no radiation. Patient started experiencing this day(s) (1) and it has been constant. No relieving factors improve symptom(s), No exacerbating factors reported . Patient notes no other symptoms.. Patient did receive the following treatments prior to arrival, none Related Data Home Medications Medication Instructions Recorded Confirmed ibuprofen 800 mg tablet 800 mg PO Q8H PRN pain #30 tabs 02/27/20 11/25/22 lidocaine 5 % topical ointment 1 applic topical BID PRN pain #50 01/13/22 11/25/22 grams Saccharomyces boulardii 250 mg 250 mg PO BID #14 caps 05/01/22 11/25/22 capsule (Florastor) sertraline 50 mg tablet 50 mg PO HS #90 tabs 05/04/22 11/25/22 trazodone 100 mg tablet 100 mg PO HS #90 tabs 05/04/22 11/25/22 clindamycin phosphate 1 % topical 1 applic topical DAILY #60 grams 07/20/22 11/25/22 gel, once daily tramadol 100 mg tablet 100 mg PO TID PRN #10 tabs 10/30/22 11/25/22 doxycycline hyclate 100 mg capsule 100 mg PO BID #20 caps 11/25/22 11/25/22 triamcinolone acetonide 0.1 % 1 applic topical BID #15 grams 11/25/22 11/25/22 topical cream cephalexin 500 mg tablet 500 mg PO QID 7 days #28 tabs 12/02/22 Previous Rx's Medication Instructions Recorded ibuprofen 800 mg tablet 800 mg PO Q8H PRN pain #30 tabs 02/27/20 lidocaine 5 % topical ointment 1 applic topical BID PRN pain #50 01/13/22 grams Saccharomyces boulardii 250 mg 250 mg PO BID #14 caps 05/01/22 capsule (Florastor) sertraline 50 mg tablet 50 mg PO HS #90 tabs 05/04/22 trazodone 100 mg tablet 100 mg PO HS #90 tabs 05/04/22 clindamycin phosphate 1 % topical 1 applic topical DAILY #60 grams 07/20/22 gel, once daily tramadol 100 mg tablet 100 mg PO TID PRN #10 tabs 10/30/22 doxycycline hyclate 100 mg capsule 100 mg PO BID #20 caps 11/25/22 triamcinolone acetonide 0.1 % 1 applic topical BID #15 grams 11/25/22 topical cream cephalexin 500 mg tablet 500 mg PO QID 7 days #28 tabs 12/02/22 Allergies Allergy/AdvReac Type Severity Reaction Status Date / Time cyclobenzaprine Allergy Intermediate Hives Unverified 11/25/22 09:09 [From Flexeril] cephalexin [Cephalexin] AdvReac Severe Abdominal Verified 11/25/22 09:09 Cramps vancomycin AdvReac Severe diarrhea, Verified 11/25/22 09:09 redness acetaminophen AdvReac Intermediate Other (See Verified 11/25/22 09:09 Comment) Cephalosporins AdvReac Intermediate Diarrhea Verified 11/25/22 09:09 codeine phosphate AdvReac Intermediate Vomiting Verified 11/25/22 09:09 [From Tylenol-Codeine #3] ketorolac [From Toradol] AdvReac Intermediate Nausea Verified 11/25/22 09:09 silver AdvReac Intermediate Skin Rash Verified 11/25/22 09:09 [From Tegaderm AG Mesh] tramadol AdvReac Intermediate Diarrhea Verified 11/25/22 09:09 General Stated Complaint: RashLesion HALINA: 4 Review of Systems Constitutional Constitutional: Denies fever(s) Cardiovascular Cardiovascular: Denies chest pain Integumentary/Breasts Skin/Breast: Reports as per HPI, Reports erythema, Reports skin pain and Reports skin swelling PFSH All Active Problems Anxiety (Acute 02/11/13) panic Lymphedema of left lower extremity (Chronic) 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 Pending Humira start. [facility] [place] did pain clinic referral. Obesity without serious comorbidity (Acute) Low HDL (under 40) (Acute) Palpable mass of soft tissue of knee (Acute) Cellulitis (Acute) Medical History Anemia Endometriosis, unspecified LAPROSCOPY 2009 hysterect 2019 on OC for control Hepatic steatosis Hepatomegaly History of renal calculi History of tobacco abuse quit 01/2022 Vitamin D deficiency Surgical History EGD - MAC Extracorporeal shock wave lithotripsy Hx of hand surgery L hand, pt. reports nerves were fixed S/P laparoscopic assisted vaginal hysterectomy (LAVH) ovaries intact S/P laparoscopic cholecystectomy (2016) S/P laparoscopy (2009) stage 1 endometriosis Status post endovenous radiofrequency ablation (RFA) of saphenous vein for venous insufficiency 09/06/2018 wisdom teeth extraction Family History Mother Diabetes Heart disease Hyperlipidemia Father Colon cancer Heart disease Hyperlipidemia Sister Hyperlipidemia Grandfather Diabetes Grandfather Diabetes Hyperlipidemia Asthma Grandmother Diabetes Personal history of malignant neoplasm Breast Heart disease Hyperlipidemia Grandmother No problems noted. 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 Pets and animals: Yes Pets and animals: dog(s) Sexually active: Yes Do you think of yourself as: straight/heterosexual Current gender identity: female What is your relationship status?: never How often do you talk on the phone with friends or family?: three or more times per week How often do you get together with friends or relatives?: once per week How often do you attend faith or methodist services?: 1-3 times per year Do you belong to any clubs or organized social groups?: no Panel score (0-1 are the most socially isolated patients): 1 What type of physical activity do you participate in: other Duration: > 90 minutes/day Frequency: 5-6 times per week Melida/Nondenominational: None Do you feel safe at home: Yes Do you feel safe in your relationship?: Yes Exam Const General: cooperative, no acute distress and not ill appearing Orientation: alert, awake and oriented x3 HENMT Mouth: moist mucous membranes Resp Effort & Inspection: normal respiratory effort, able to speak in complete sentences and no respiratory distress Neuro General: patient alert, patient awake, patient oriented x3, moves all extremities and no focal motor deficits Extrem General: normal exam except as noted Right lower extremity: lower leg Details: erythema Location: of the proximal lower leg Location: anteromedially (With central excoriation) Course Vital Signs Vital signs: Vital Signs Temperature 36.5 C 12/02/22 10:36 Pulse 73 12/02/22 10:36 Respiratory Rate 18 12/02/22 10:36 Blood Pressure 140/86 12/02/22 10:36 Pulse Oximetry 97 12/02/22 10:36 Temperature 36.5 C 12/02/22 10:36 Temperature Source Oral 12/02/22 10:36 Pulse 73 12/02/22 10:36 Respiratory Rate 18 12/02/22 10:36 Blood Pressure 140/86 12/02/22 10:36 Blood Pressure Position Sitting 12/02/22 10:36 Pulse Oximetry 97 12/02/22 10:36 Oxygen Delivery Method Room Air 12/02/22 10:36 Oxygen Flow Rate 0 12/02/22 10:36
== END 2022-12-02 11:03 | disposition home or self-care (01) ==
PROVIDERS: Emergency Provider Nurse Practitioner Family; PCP Family Medicine
DX: L03.115 Cellulitis of right lower limb (principal)
CPT/HCPCS: 99283; 99284

== ENCOUNTER 2022-12-05 10:04 | Emergency (ER) | payer MEDICAID, SELFPAY ==
[2022-12-05 10:07] VITALS: BP 128/85; PULSE 63; RESP 18; TEMP 36.8; O2SAT 99
[2022-12-05 10:23] VITALS: BP 128/85; PULSE 63; RESP 18; TEMP 36.8; O2SAT 99
--- NOTE | 2022-12-05 10:28 | ED.GENADUL_ITS ---
Discharge Plan Disposition Patient Disposition: Home Condition: Good Discharge Details Clinical Impression: Cellulitis Primary Care Provider: Sharon Leach ED Provider: Cindi Brothers Home Meds and New Rx's Prescriptions: Continued sertraline 50 mg tablet 50 mg PO HS Qty: 90 3RF trazodone 100 mg tablet 100 mg PO HS Qty: 90 4RF triamcinolone acetonide 0.1 % cream 1 applic topical BID Qty: 15 0RF doxycycline hyclate 100 mg capsule 100 mg PO BID Qty: 20 0RF Patient Comments: not taking anymore lidocaine 5 % ointment 1 applic topical BID PRN (Reason: pain) Qty: 50 0RF clindamycin phosphate 1 % gel, once daily 1 applic topical DAILY Qty: 60 3RF tramadol 100 mg tablet 100 mg PO TID PRNQty: 10 0RF Patient Comments: not taking cephalexin 500 mg tablet 500 mg PO QID 7 Days Qty: 28 0RF cephalexin 500 mg capsule 500 mg PO QID ibuprofen 800 mg tablet 800 mg PO Q8H PRN (Reason: pain) Qty: 30 1RF Saccharomyces boulardii [Florastor] 250 mg capsule 250 mg PO BID Qty: 14 0RF No Action ondansetron 4 mg tablet,disintegrating 4 mg PO Q6H PRN (Reason: nausea and vomiting) Qty: 30 0RF Discharge Instructions Instructions: Cellulitis (ED) Additional Instructions: Open wound is concerning for likely abscess that has since opened. I do not see any evidence of persistent abscess. Do not see significant cellulitis but do encourage that he continue with the Keflex as previously prescribed. Tylenol and ibuprofen as needed for discomfort. Please apply bacitracin and Band-Aid to the area to help prevent any new microbes entering the area and also help with discomfort keep it from rubbing underclothes. If develop fever/chills, increas ed pain, spreading of the redness or new/worsening symptoms seek care urgently once again. Otherwise, please follow-up with primary care in 1 week for reevaluation. Stand Alone Forms: Work Release Referrals: Sharon Leach MD [Primary Care Provider] - Discharge Data Discharge Date/Time-TO BE ENTERED AT DEPARTURE: 12/05/22 10:34 Medical Decision Making Patient is a 37-year-old female, well-known to myself in department, presenting today with chief complaint right lower extremity cellulitis. She was here few days ago and diagnosed with possible cellulitis and was started on Keflex. Has been taking the Keflex. States that yesterday today the area opened and she had some purulent discharge expressed. Denies any fevers or chills. On exam, patient appears nontoxic. She does have a small 5 mm open area no active discharge. No fluctuance. The area around the states she is slightly indurated but is not warm. No pocket of fluid identified on ultrasound. Discussed with patient that likely she was developing an abscess earlier and that she has now started to drain this area. I do not see any evidence of bacteremia, septicemia, significant cellulitis. Change from previous evaluation seems to be that the abscess is opened. Advised that she continue with the antibiotics. She has been allowing the area to rub against her pant leg and I am concerned that this may increase her risk for further infection or exposure to new bacteria as well as keep the area open and cause increased discomfort. Area was cleansed by nursing staff, bacitracin and Band-Aid applied. She will continue the antibiotics as previously prescribed. I did advise that she follow-up with primary care to ensure that this is improving. Return precautions were discussed. All of her questions and concerns were addressed and she is in agreement with this plan. HPI General Date/Time Provider Initiated Documentation: 12/05/22 10:19 . Limitations to Documentation: no limitations . Information obtained by: patient, RN notes reviewed and old records reviewed . History of Present Illness 37 year old F presents to the emergency department with the chief complaint of Cellulitis right lower extremity, described as moderate and similar to prior episodes, with intensity rated at 8. Quality is described as burning, and is localized to the right and lower extremity. Patient reports no radiation. Patient started experiencing this day(s) and it has been constant. No relieving factors improve symptom(s), No exacer bating factors reported . Patient notes no other symptoms.; denies fever/chills. Patient did receive the following treatments prior to arrival, other (Currently on antibiotics) Related Data Home Medications Medication Instructions Recorded Confirmed ibuprofen 800 mg tablet 800 mg PO Q8H PRN pain #30 tabs 02/27/20 12/07/22 lidocaine 5 % topical ointment 1 applic topical BID PRN pain #50 01/13/22 12/07/22 grams Saccharomyces boulardii 250 mg 250 mg PO BID #14 caps 05/01/22 12/07/22 capsule (Florastor) sertraline 50 mg tablet 50 mg PO HS #90 tabs 05/04/22 12/07/22 trazodone 100 mg tablet 100 mg PO HS #90 tabs 05/04/22 12/07/22 clindamycin phosphate 1 % topical 1 applic topical DAILY #60 grams 07/20/22 12/07/22 gel, once daily tramadol 100 mg tablet 100 mg PO TID PRN #10 tabs 10/30/22 12/07/22 doxycycline hyclate 100 mg capsule 100 mg PO BID #20 caps 11/25/22 12/07/22 triamcinolone acetonide 0.1 % 1 applic topical BID #15 grams 11/25/22 12/07/22 topical cream cephalexin 500 mg tablet 500 mg PO QID 7 days #28 tabs 12/02/22 12/07/22 cephalexin 500 mg capsule 500 mg PO QID 12/05/22 12/07/22 ondansetron 4 mg disintegrating 4 mg PO Q6H PRN nausea and 12/07/22 12/07/22 tablet vomiting #30 tabs Previous Rx's Medication Instructions Recorded ibuprofen 800 mg tablet 800 mg PO Q8H PRN pain #30 tabs 02/27/20 lidocaine 5 % topical ointment 1 applic topical BID PRN pain #50 01/13/22 grams Saccharomyces boulardii 250 mg 250 mg PO BID #14 caps 05/01/22 capsule (Florastor) sertraline 50 mg tablet 50 mg PO HS #90 tabs 05/04/22 trazodone 100 mg tablet 100 mg PO HS #90 tabs 05/04/22 clindamycin phosphate 1 % topical 1 applic topical DAILY #60 grams 07/20/22 gel, once daily tramadol 100 mg tablet 100 mg PO TID PRN #10 tabs 10/30/22 doxycycline hyclate 100 mg capsule 100 mg PO BID #20 caps 11/25/22 triamcinolone acetonide 0.1 % 1 applic topical BID #15 grams 11/25/22 topical cream cephalexin 500 mg tablet 500 mg PO QID 7 days #28 tabs 12/02/22 ondansetron 4 mg disintegrating 4 mg PO Q6H PRN nausea and 12/07/22 tablet vomiting #30 tabs Allergies Allergy/AdvReac Type Severity Reaction Status Date / Time cyclobenzaprine Allergy Intermediate Hives Unverified 12/07/22 09:24 [From Flexeril] cephalexin [Cephalexin] AdvReac Severe Abdominal Verified 12/07/22 09:24 Cramps vancomycin AdvReac Severe diarrhea, Verified 12/07/22 09:24 redness acetaminophen AdvReac Intermediate Other (See Verified 12/07/22 09:24 Comment) Cephalosporins AdvReac Intermediate Diarrhea Verified 12/07/22 09:24 codeine phosphate AdvReac Intermediate Vomiting Verified 12/07/22 09:24 [From Tylenol-Codeine #3] ketorolac [From Toradol] AdvReac Intermediate Nausea Verified 12/07/22 09:24 silver AdvReac Intermediate Skin Rash Verified 12/07/22 09:24 [From Tegaderm AG Mesh] tramadol AdvReac Intermediate Diarrhea Verified 12/07/22 09:24 General Stated Complaint: Recheck HALINA: 4 Review of Systems Constitutional Constitutional: Reports as per HPI, Denies chills and Denies fever(s) Musculoskeletal Musculoskeletal: Reports as per HPI Integumentary/Breasts Skin/Breast: Reports as per HPI Neurologic Neurologic: Reports as per HPI, Denies sensory deficit and Denies paresthesias PFSH All Active Problems (Updated 12/07/22 @ 09:47 by Stef Pereira NP) Anxiety (Acute 02/11/13) panic Lymphedema of left lower extremity (Chronic) 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 Pending Humira start. [facility] [place] did pain clinic referral. Obesity without serious comorbidity (Acute) Low HDL (under 40) (Acute) Palpable mass of soft tissue of knee (Acute) Cellulitis (Acute) Diarrhea (Acute) Medical History Anemia Endometriosis, unspecified LAPROSCOPY 2009 hysterect 2019 on OC for control Hepatic steatosis Hepatomegaly History of renal calculi History of tobacco abuse quit 01/2022 Vitamin D deficiency Surgical History EGD - MAC Extracorporeal shock wave lithotripsy Hx of hand surgery L hand, pt. reports nerves were fixed S/P laparoscopic assisted vaginal hysterectomy (LAVH) ovaries intact S/P laparoscopic cholecystectomy (2017) S/P laparoscopy (2009) stage 1 endometriosis Status post endovenous radiofrequency ablation (RFA) of saphenous vein for venous insufficiency 09/06/2018 wisdom teeth extraction Family History Mother Diabetes Heart disease Hyperlipidemia Father Colon cancer Heart disease Hyperlipidemia Sister Hyperlipidemia Grandfather Diabetes Grandfather Diabetes Hyperlipidemia Asthma Grandmother Diabetes Personal history of malignant neoplasm Breast Heart disease Hyperlipidemia Grandmother No problems noted. 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 Pets and animals: Yes Pets and animals: dog(s) Sexually active: Yes Do you think of yourself as: straight/heterosexual Current gender identity: female What is your relationship status?: never How often do you talk on the phone with friends or family?: three or more times per week How often do you get together with friends or relatives?: once per week How often do you attend shinto or buddhist services?: 1-3 times per year Do you belong to any clubs or organized social groups?: no Panel score (0-1 are the most socially isolated patients): 1 What type of physical activity do you participate in: other Duration: > 90 minutes/day Frequency: 5-6 times per week Melida/Sabianism: None Do you feel safe at home: Yes Do you feel safe in your relationship?: Yes Exam Const General: cooperative, healthy appearing, comfortable, no acute distress and well developed Nutritional Appearance: average body habitus and well nourished Orientation: alert and awake Resp Effort & Inspection: normal respiratory effort, able to speak in complete sentences and no respiratory distress Cardio Rate: regular rate Rhythm: regular rhythm Skin General skin exam: erythema Wounds: wounds noted (Right lower extremity) Neuro General: patient alert and patient awake Cognition: normal cognition Speech: speech normal Gait: normal gait Sensory Exam: no sensory deficits noted Extrem Upper/lower leg/hip images: 1. Patient has a 3 cm circular area of erythema with small 5 mm open wound in the center which appears to have been where purulent drainage was drained from. No active drainage. No area of fluctuance. Explored with ultrasound and no fluid collection is able to be visualized at this time. Psych Appearance: grossly normal and well kempt Mental Status: mental status grossly normal Speech and Movement: speech and movement normal Course Vital Signs Vital signs: Vital Signs Temperature 36.8 C 12/05/22 10:07 Pulse 63 12/05/22 10:07 Respiratory Rate 18 12/05/22 10:07 Blood Pressure 128/85 12/05/22 10:07 Pulse Oximetry 99 12/05/22 10:07 Temperature 36.8 C 12/05/22 10:23 Temperature Source Skin 12/05/22 10:07 Pulse 63 12/05/22 10:23 Respiratory Rate 18 12/05/22 10:23 Respiratory Effort Normal, Non-Labored 12/05/22 10:22 Blood Pressure 128/85 12/05/22 10:23 Blood Pressure Position Sitting 12/05/22 10:07 Pulse Oximetry 99 12/05/22 10:23 Oxygen Delivery Method Room Air 12/05/22 10:07 Oxygen Flow Rate 0 12/05/22 10:07 Pain Level 8 12/05/22 10:07
--- NOTE | 2022-12-06 16:58 | NUR.NOTE ---
Nursing Note: Patient called asking asking for a work note to return tomorrow. Dr. Quan completed a paper work note and this will be scanned in to the chart.
== END 2022-12-05 10:34 | disposition home or self-care (01) ==
PROVIDERS: Emergency Provider Physician Assistant; PCP Family Medicine
DX: L03.115 Cellulitis of right lower limb (principal)
CPT/HCPCS: 99282

== ENCOUNTER 2022-12-07 09:51 | Outpatient (CLI) | payer MEDICAID, SELFPAY ==
[2022-12-07 12:19] LABS: Abs Immature Grans 0.02 10^3/uL (0.0-0.06); Absolute Basophil Count 0.05 10^3/uL (0.0-0.2); Absolute Eosinophil Count 0.08 10^3/uL (0.0-0.7); Absolute Lymphocyte Count 1.95 10^3/uL (1.2-3.4); Absolute Monocyte Count 0.33 10^3/uL (0.1-0.8); Absolute Neutrophil Count 4.11 10^3/uL (1.2-6.7); Basophils % 0.8; Eosinophils % 1.2; HCT 42.8 % (36.0-46.0); HGB 14.8 g/dL (11.2-15.7); Immature Grans % 0.3; Lymphocytes % 29.8; MCH 32.5 pg (27.0-33.0); MCHC 34.6 % (32.0-36.0); MCV 94 fL (80-95); MPV 10.7 fL (8.0-11.0); Neutrophils % 62.9; Platelet Count 214 10^3/uL (130-400); RBC 4.56 10^6/uL (3.93-5.22); RDW 11.9 % (11.7-14.6); RDW-SD 41.2 fL; WBC 6.54 10^3/uL (4.4-10.8)
[2022-12-07 12:45] LABS: ALT 21 U/L (14-59); AST 13 U/L (15-37); Albumin 3.6 g/dL (3.4-5.0); Alkaline Phosphatase 80 U/L (46-116); Anion Gap 7.7 mmol/L (3-11); BUN 5 mg/dL (7-18); Bilirubin, Total 0.3 mg/dL (0.2-1.0); CO2 28.3 mmol/L (21.0-32.0); CREATININE 0.8 mg/dL (0.55-1.02); Calcium 8.9 mg/dL (8.5-10.1); Chloride 105 mmol/L (98-107); Estimated GFR 97.87 (mL/min/1.73m2); Glucose 105 mg/dL (74-106); Potassium 3.3 mmol/L (3.5-5.1); Sodium 141 mmol/L (136-145)
== END 2022-12-07 09:52 | disposition home or self-care (01) ==
LOC: LOS 09:52
PROVIDERS: PCP Family Medicine; Referring Provider Nurse Practitioner Family; Visit Provider Nurse Practitioner Family
DX: R19.7 Diarrhea, unspecified (principal); D64.9 Anemia, unspecified
CPT/HCPCS: 36415; 80053; 85025

== ENCOUNTER 2022-12-07 09:58 | Outpatient (CLI) | payer MEDICAID, SELFPAY ==
--- NOTE | 2022-12-07 09:45 | RT.EKG_ITS ---
APPROVED REPORT Exam: Resting ECG Reason for Exam: nausea and vomitting Patient Location: O HR:45 bpm ECG Measurements Heart Rate 45 AXIS IA 140 P 56 QRSd 115 QRS 1 QT 473 T -13 QTc 410 Conclusion Sinus bradycardia...rate< 50 Nonspecific intraventricular conduction delay...QRSd >115mS, not LBBB/RBBB Borderline T abnormalities, inferior leads...T flat/neg, II III aVF
== END 2022-12-07 09:59 | disposition home or self-care (01) ==
LOC: DI.CM 09:59
PROVIDERS: PCP Family Medicine; Visit Provider Nurse Practitioner Family
DX: R00.2 Palpitations (principal)
CPT/HCPCS: 93010

== ENCOUNTER 2022-12-18 12:02 | Emergency (ER) | payer MEDICAID, SELFPAY ==
[2022-12-18 12:06] VITALS: BP 158/99; PULSE 61; RESP 16; TEMP 37.3; O2SAT 99
--- NOTE | 2022-12-18 12:24 | W.ED.GENAD ---
Discharge Plan Disposition Patient Disposition: Home Discharge Details Clinical Impression: Abscess of flank Primary Care Provider: Sharon Leach ED Provider: Otis Walker Home Meds and New Rx's Prescriptions: Continued sertraline 50 mg tablet 50 mg PO HS Qty: 90 3RF trazodone 100 mg tablet 100 mg PO HS Qty: 90 4RF ondansetron 4 mg tablet,disintegrating 4 mg PO Q6H PRN (Reason: nausea and vomiting) Qty: 30 0RF clindamycin HCl [Cleocin HCl] 300 mg capsule 300 mg PO TID Qty: 21 0RF triamcinolone acetonide 0.1 % cream 1 applic topical BID Qty: 15 0RF doxycycline hyclate 100 mg capsule 100 mg PO BID Qty: 20 0RF Patient Comments: not taking anymore lidocaine 5 % ointment 1 applic topical BID PRN (Reason: pain) Qty: 50 0RF clindamycin phosphate 1 % gel, once daily 1 applic topical DAILY Qty: 60 3RF ibuprofen 800 mg tablet 800 mg PO Q8H PRN (Reason: pain) Qty: 30 1RF Saccharomyces boulardii [Florastor] 250 mg capsule 250 mg PO BID Qty: 14 0RF Discharge Instructions Instructions: Abscess (ED) Additional Instructions: You please was seen in the emergency department for your abscess. Your abscess was drained in the emergency department. Continue take your antibiotics as previously directed. Please soak your abscess twice a day and a warm bath. As we discussed a loop drain has been left in place. Please ensure that this moves freely. If this becomes painful please use the scissors and remove it. There is nothing deeper down in your skin. Please follow-up with your primary care provider next week. For your pain please take medications as follows: 1. Take acetaminophen (Tylenol), 1,000 mg (two 500 mg tabs) every 6 hours 2. Take ibuprofen (Advil), 400 mg every 6 hours. You are also receiving stronger medicine you should take as needed for pain. Please do not drive or drink alcohol or operate any machinery after taking this stronger medicine. Discharge Data Discharge Date/Time-TO BE ENTERED AT DEPARTURE: 12/18/22 14:10 HPI General Date/Time Provider Initiated Documentation: 12/18/22 12:24. HPI Narrative: HPI This is a 37-year-old female with a history of hidradenitis on outpatient treatment for cellulitis of left flank area with redness and tenderness with some bloody and pus draining over the past several days. Patient reports that she has been adherent with her clindamycin from [facility]. With her hidradenitis she is also on outpatient prophylactic doxycycline. She has had increasing pain despite using warm compresses twice a day. She has not had any nauseousness nor vomiting. She subjectively feels as if she may have had fevers. She has a prior history of abscesses. She denies cough chest pain shortness of breath dysuria frequency. She denies routine tobacco and ethanol. No IV drug use. No history of diabetes. Exam General: Well-appearing in no acute distress speaking in complete sentences. Head: Normocephalic, atraumatic. Eye: Extraocular eye movements intact. No conjunctival injection. No scleral icterus. Ear, nose, mouth, throat: Grossly normal inspection. Normal voice, handling secretions normally. Neck: Trachea midline. Cardiovascular: Well-perfused distal extremities. Respiratory: Nonlabored respiration. Gastrointestinal: Nondistended abdomen. Musculoskeletal: No edema. Moving all 4 extremities spontaneously. Skin: On the patient's left flank there is an approximately 4 x 4 centimeter area of cellulitis with central fluctuance tenderness and bedside ultrasound consistent with abscess as noted in the POCUS exam section. No pain out of proportion. Please see photo as follows of abscess: Neurologic: Alert and appropriate, no apparent acute deficits. Psychiatric: Mood and manner are appropriate. Grooming and personal hygiene are appropriate. MDM This is an overall very well-appearing normothermic and not tachycardic with a history of hidradenitis and prior abscesses with history physical and bedside ultrasound consistent with small cutaneous left flank abscess for which patient will undergo bedside incision and drainage with loop drain following topical lidocaine with epinephrine and oral opiate as she has had acetaminophen and ibuprofen just prior to arrival. No pain out of proportion to suggest necrotizing soft tissue infection. Soft nontender abdomen so not suspicious for any intra-abdominal extension. Furthermore no nausea vomiting or diarrhea. Patient has had subjective fevers and chills otherwise she is not septic appearing and as result my suspicion for sepsis was low. I did not feel that she required empiric antibiotics through an IV, lactate blood cultures nor an assessment of labs that she has been tolerating p.o. with neither nausea nor vomiting. She is at low risk for poor wound healing as she has no history of diabetes tobacco use nor alcoholism. Please see separate procedure note concerning incision and drainage. We will send patient home with several doses of oxycodone for pain control to use above beyond any acetaminophen and ibuprofen. I sent patient home with several tablets of oxycodone to take following her scheduled acetaminophen and ibuprofen. I did advise that she should not drink alcohol operate any machinery or drive a vehicle after taking oxycodone. Chronic conditions affecting the care of the patient: Hidradenitis History obtained from an outside historian: N/A External record review: [facility] E[place] Medications: Oxycodone Social determinants of health affecting disposition: N/A Management discussed with: N/A Treatment/interventions considered: N/A Response to therapies provided: N/A Related Data Home Medications Medication Instructions Recorded Confirmed ibuprofen 800 mg tablet 800 mg PO Q8H PRN pain #30 tabs 02/27/20 12/18/22 lidocaine 5 % topical ointment 1 applic topical BID PRN pain #50 01/13/22 12/18/22 grams Saccharomyces boulardii 250 mg 250 mg PO BID #14 caps 05/01/22 12/18/22 capsule (Florastor) sertraline 50 mg tablet 50 mg PO HS #90 tabs 05/04/22 12/18/22 trazodone 100 mg tablet 100 mg PO HS #90 tabs 05/04/22 12/18/22 clindamycin phosphate 1 % topical 1 applic topical DAILY #60 grams 07/20/22 12/18/22 gel, once daily doxycycline hyclate 100 mg capsule 100 mg PO BID #20 caps 11/25/22 12/18/22 triamcinolone acetonide 0.1 % 1 applic topical BID #15 grams 11/25/22 12/18/22 topical cream ondansetron 4 mg disintegrating 4 mg PO Q6H PRN nausea and 12/07/22 12/18/22 tablet vomiting #30 tabs clindamycin HCl 300 mg capsule 300 mg PO TID #21 caps 12/15/22 12/18/22 (Cleocin HCl) Previous Rx's Medication Instructions Recorded ibuprofen 800 mg tablet 800 mg PO Q8H PRN pain #30 tabs 02/27/20 lidocaine 5 % topical ointment 1 applic topical BID PRN pain #50 01/13/22 grams Saccharomyces boulardii 250 mg 250 mg PO BID #14 caps 05/01/22 capsule (Florastor) sertraline 50 mg tablet 50 mg PO HS #90 tabs 05/04/22 trazodone 100 mg tablet 100 mg PO HS #90 tabs 05/04/22 clindamycin phosphate 1 % topical 1 applic topical DAILY #60 grams 07/20/22 gel, once daily doxycycline hyclate 100 mg capsule 100 mg PO BID #20 caps 11/25/22 triamcinolone acetonide 0.1 % 1 applic topical BID #15 grams 11/25/22 topical cream ondansetron 4 mg disintegrating 4 mg PO Q6H PRN nausea and 12/07/22 tablet vomiting #30 tabs clindamycin HCl 300 mg capsule 300 mg PO TID #21 caps 12/15/22 (Cleocin HCl) Allergies Allergy/AdvReac Type Severity Reaction Status Date / Time cyclobenzaprine Allergy Intermediate Hives Unverified 12/18/22 12:12 [From Flexeril] cephalexin [Cephalexin] AdvReac Severe Abdominal Verified 12/18/22 12:12 Cramps vancomycin AdvReac Severe diarrhea, Verified 12/18/22 12:12 redness acetaminophen AdvReac Intermediate Other (See Verified 12/18/22 12:12 Comment) Cephalosporins AdvReac Intermediate Diarrhea Verified 12/18/22 12:12 codeine phosphate AdvReac Intermediate Vomiting Verified 12/18/22 12:12 [From Tylenol-Codeine #3] ketorolac [From Toradol] AdvReac Intermediate Nausea Verified 12/18/22 12:12 silver AdvReac Intermediate Skin Rash Verified 12/18/22 12:12 [From Tegaderm AG Mesh] tramadol AdvReac Intermediate Diarrhea Verified 12/18/22 12:12 General Stated Complaint: Cellulitis HALINA: 4 PFSH All Active Problems (Updated 12/18/22 @ 13:22 by Otis Walker MD) Anxiety (Acute 02/11/13) panic Lymphedema of left lower extremity (Chronic) Loin pain hematuria syndrome (Acute) never officially diagnosed by pattern chart writer Bilateral ovarian cysts (Chronic) seen on multiple imaging studies Hidradenitis suppurativa (Acute) bilateral, managed at [facility] derm. Pending Humira start. [facility] did pain clinic referral. Obesity without serious comorbidity (Acute) Low HDL (under 40) (Acute) Palpable mass of soft tissue of knee (Acute) Cellulitis (Acute) Diarrhea (Acute) Abscess of flank (Acute) Medical History Anemia Endometriosis, unspecified LAPROSCOPY 2009 hysterect 2019 on OC for control Hepatic steatosis Hepatomegaly History of renal calculi History of tobacco abuse quit 01/2022 Vitamin D deficiency Surgical History EGD - MAC Extracorporeal shock wave lithotripsy Hx of hand surgery L hand, pt. reports nerves were fixed S/P laparoscopic assisted vaginal hysterectomy (LAVH) ovaries intact S/P laparoscopic cholecystectomy (2016) S/P laparoscopy (2009) stage 1 endometriosis Status post endovenous radiofrequency ablation (RFA) of saphenous vein for venous insufficiency 09/06/2018 wisdom teeth extraction Family History Mother Diabetes Heart disease Hyperlipidemia Father Colon cancer Heart disease Hyperlipidemia Sister Hyperlipidemia Grandfather Diabetes Grandfather Diabetes Hyperlipidemia Asthma Grandmother Diabetes Personal history of malignant neoplasm Breast Heart disease Hyperlipidemia Grandmother No problems noted. 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 Pets and animals: Yes Pets and animals: dog(s) Sexually active: Yes Do you think of yourself as: straight/heterosexual Current gender identity: female What is your relationship status?: never How often do you talk on the phone with friends or family?: three or more times per week How often do you get together with friends or relatives?: once per week How often do you attend bahai or advent services?: 1-3 times per year Do you belong to any clubs or organized social groups?: no Panel score (0-1 are the most socially isolated patients): 1 What type of physical activity do you participate in: other Duration: > 90 minutes/day Frequency: 5-6 times per week Melida/Adventism: None Do you feel safe at home: Yes Do you feel safe in your relationship?: Yes Course Vital Signs Vital signs: Vital Signs Temperature 37.3 C 12/18/22 12:06 Pulse 61 12/18/22 12:06 Respiratory Rate 16 12/18/22 12:06 Blood Pressure 158/99 H 12/18/22 12:06 Pulse Oximetry 99 12/18/22 12:06 Temperature 37.3 C 12/18/22 12:06 Temperature Source Oral 12/18/22 12:06 Pulse 61 12/18/22 12:06 Respiratory Rate 16 12/18/22 12:06 Respiratory Effort Normal, Non-Labored 12/18/22 12:10 Blood Pressure 158/99 H 12/18/22 12:06 Blood Pressure Position Sitting 12/18/22 12:06 Pulse Oximetry 99 12/18/22 12:06 Oxygen Delivery Method Room Air 12/18/22 12:06 Oxygen Flow Rate 0 12/18/22 12:06 Pain Level 10 12/18/22 12:06 Procedures Abscess I/D Site: Abdomen Side (if applicable): Left Local Anesthetic: Lidocaine 2% and With Epi Amount of anesthesia used (mL): 8 Technique: Incised with #11 Blade Amount of fluid expressed (mL): 3 Irrigation: No Packing used?: None (Loop drainage left in place) POCUS Exam (ED) Limited Soft Tissue Exam DATE OF EXAM: 12/18/22 TIME OF EXAM: 13:22 PROVIDER THAT PERFORMED THE STUDY: Otis Walker IS THIS A REPEAT EXAM DURING THIS ENCOUNTER: No LOCATION OF EXAM: Abdominal wall/left side REASON FOR EXAM: Abscess Exam Complete DIFFERENTIAL DIAGNOSES: Positive swirl sign and hypoechoic area surrounding cobblestoning consistent with abscess
== END 2022-12-18 14:10 | disposition home or self-care (01) ==
PROVIDERS: Emergency Provider Emergency Medicine; PCP Family Medicine
DX: L02.211 Cutaneous abscess of abdominal wall; L73.2 Hidradenitis suppurativa; Z79.82 Long term (current) use of aspirin; Z88.1 Allergy status to other antibiotic agents; Z88.5 Allergy status to narcotic agent; Z88.8 Allergy status to other drugs, medicaments and biological substances
CPT/HCPCS: 10060; 99284

== ENCOUNTER 2022-12-20 17:28 | Emergency (ER) | payer MEDICAID, SELFPAY ==
[2022-12-20 17:40] VITALS: BP 129/79; PULSE 72; RESP 15; TEMP 36.8; O2SAT 98
--- NOTE | 2022-12-20 18:18 | W.ED.GENAD ---
Discharge Plan Disposition Patient Disposition: Home Condition: Good Discharge Details Clinical Impression: Abscess of flank Primary Care Provider: Sharon Leach ED Provider: Marilee Yu Home Meds and New Rx's Prescriptions: New doxycycline hyclate 100 mg tablet,delayed release (DR/EC) 100 mg PO BID Qty: 20 0RF No Action sertraline 50 mg tablet 50 mg PO HS Qty: 90 3RF trazodone 100 mg tablet 100 mg PO HS Qty: 90 4RF ondansetron 4 mg tablet,disintegrating 4 mg PO Q6H PRN (Reason: nausea and vomiting) Qty: 30 0RF clindamycin HCl [Cleocin HCl] 300 mg capsule 300 mg PO TID Qty: 21 0RF triamcinolone acetonide 0.1 % cream 1 applic topical BID Qty: 15 0RF doxycycline hyclate 100 mg capsule 100 mg PO BID Qty: 20 0RF Patient Comments: not taking anymore lidocaine 5 % ointment 1 applic topical BID PRN (Reason: pain) Qty: 50 0RF clindamycin phosphate 1 % gel, once daily 1 applic topical DAILY Qty: 60 3RF oxycodone 5 mg tablet 5 mg PO DAILY MDD 5mg PRN (Reason: pain) Qty: 5 0RF ibuprofen 800 mg tablet 800 mg PO Q8H PRN (Reason: pain) Qty: 30 1RF Saccharomyces boulardii [Florastor] 250 mg capsule 250 mg PO BID Qty: 14 0RF Discharge Instructions Instructions: Abscess (ED) Additional Instructions: Take the doxycycline twice a day for the next 10 days. Take tylenol and ibuprofen over the counter as needed for pain; follow the directions on the bottle. Leave the packing in place until it falls out on its own. Seek medical attention if your pain or redness worsens or spreads, you develop a fever, or if you have any other concerns. Stand Alone Forms: Work Release Medical Decision Making 37yo F with hx of hidraenitis presenting with worsening left flank cellulits. Seen in this ED two days ago and abscess drained, discharged on clindamycin, symptoms initially improved but today began worsening again. ED note from 12/18 reviewed. Vital signs reassuring. Not septic. On exam area of erythema appears essentially unchanged in size based on picture in ED note 12/18. Bedside ultrasound shows small fluid pocket persists. Repeat I&D done and small volume of purulent material expressed. Cavity explored, loculations broken up, and packed with iodoform gauze. Will prescirbe 10 day course of doxycycline. Discharged home; discharge instructions including return precautions were reviewed with patient who verbalized understanding. All questions were answered and they are in full agreement with the plan. HPI General Mode of arrival: ambulatory. Date/Time Provider Initiated Documentation: 12/20/22 17:45. Limitations to Documentation: no limitations. Information obtained by: patient. HPI Narrative: 37yo F with hx of hidraenitis presenting with worsening left flank cellullitis. Seen in this ED two days ago and abscess drained, discharged on clindamycin. Initially symptoms improved but today pain worsened and redness began spreading again. No discharge or drainage from site, does have loop in place. Feels warm but no fevers, Tmax 99.9F at home. She is otherwise in her usual state of health. Related Data Home Medications Medication Instructions Recorded Confirmed ibuprofen 800 mg tablet 800 mg PO Q8H PRN pain #30 tabs 02/27/20 12/18/22 lidocaine 5 % topical ointment 1 applic topical BID PRN pain #50 01/13/22 12/18/22 grams Saccharomyces boulardii 250 mg 250 mg PO BID #14 caps 05/01/22 12/18/22 capsule (Florastor) sertraline 50 mg tablet 50 mg PO HS #90 tabs 05/04/22 12/18/22 trazodone 100 mg tablet 100 mg PO HS #90 tabs 05/04/22 12/18/22 clindamycin phosphate 1 % topical 1 applic topical DAILY #60 grams 07/20/22 12/18/22 gel, once daily doxycycline hyclate 100 mg capsule 100 mg PO BID #20 caps 11/25/22 12/18/22 triamcinolone acetonide 0.1 % 1 applic topical BID #15 grams 11/25/22 12/18/22 topical cream ondansetron 4 mg disintegrating 4 mg PO Q6H PRN nausea and 12/07/22 12/18/22 tablet vomiting #30 tabs clindamycin HCl 300 mg capsule 300 mg PO TID #21 caps 12/15/22 12/18/22 (Cleocin HCl) oxycodone 5 mg tablet 5 mg PO DAILY PRN pain #5 tabs 12/19/22 doxycycline hyclate 100 mg 100 mg PO BID #20 tabs 12/20/22 tablet,delayed release Previous Rx's Medication Instructions Recorded ibuprofen 800 mg tablet 800 mg PO Q8H PRN pain #30 tabs 02/27/20 lidocaine 5 % topical ointment 1 applic topical BID PRN pain #50 01/13/22 grams Saccharomyces boulardii 250 mg 250 mg PO BID #14 caps 05/01/22 capsule (Florastor) sertraline 50 mg tablet 50 mg PO HS #90 tabs 05/04/22 trazodone 100 mg tablet 100 mg PO HS #90 tabs 05/04/22 clindamycin phosphate 1 % topical 1 applic topical DAILY #60 grams 07/20/22 gel, once daily doxycycline hyclate 100 mg capsule 100 mg PO BID #20 caps 11/25/22 triamcinolone acetonide 0.1 % 1 applic topical BID #15 grams 11/25/22 topical cream ondansetron 4 mg disintegrating 4 mg PO Q6H PRN nausea and 12/07/22 tablet vomiting #30 tabs clindamycin HCl 300 mg capsule 300 mg PO TID #21 caps 12/15/22 (Cleocin HCl) oxycodone 5 mg tablet 5 mg PO DAILY PRN pain #5 tabs 12/19/22 doxycycline hyclate 100 mg 100 mg PO BID #20 tabs 12/20/22 tablet,delayed release Allergies Allergy/AdvReac Type Severity Reaction Status Date / Time cyclobenzaprine Allergy Intermediate Hives Unverified 12/18/22 12:12 [From Flexeril] cephalexin [Cephalexin] AdvReac Severe Abdominal Verified 12/18/22 12:12 Cramps vancomycin AdvReac Severe diarrhea, Verified 12/18/22 12:12 redness acetaminophen AdvReac Intermediate Other (See Verified 12/18/22 12:12 Comment) Cephalosporins AdvReac Intermediate Diarrhea Verified 12/18/22 12:12 codeine phosphate AdvReac Intermediate Vomiting Verified 12/18/22 12:12 [From Tylenol-Codeine #3] ketorolac [From Toradol] AdvReac Intermediate Nausea Verified 12/18/22 12:12 silver AdvReac Intermediate Skin Rash Verified 12/18/22 12:12 [From Tegaderm AG Mesh] tramadol AdvReac Intermediate Diarrhea Verified 12/18/22 12:12 General Stated Complaint: Cellulitis HALINA: 3 Review of Systems Narrative: see HPI PFSH All Active Problems (Updated 12/20/22 @ 19:51 by Marilee Yu MD) Anxiety (Acute 02/11/13) panic Lymphedema of left lower extremity (Chronic) Loin pain hematuria syndrome (Acute) never officially diagnosed by activity therapy teacher Bilateral ovarian cysts (Chronic) seen on multiple imaging studies Hidradenitis suppurativa (Acute) bilateral, [place] [facility] [place]. Pending Humira start. [facility] [place]. Obesity without serious comorbidity (Acute) Low HDL (under 40) (Acute) Palpable mass of soft tissue of knee (Acute) Cellulitis (Acute) Diarrhea (Acute) Abscess of flank (Acute) Medical History Anemia Endometriosis, unspecified LAPROSCOPY 2009 hysterect 2019 on OC for control Hepatic steatosis Hepatomegaly History of renal calculi History of tobacco abuse quit 01/2022 Vitamin D deficiency Surgical History EGD - MAC Extracorporeal shock wave lithotripsy Hx of hand surgery L hand, pt. reports nerves were fixed S/P laparoscopic assisted vaginal hysterectomy (LAVH) ovaries intact S/P laparoscopic cholecystectomy (2016) S/P laparoscopy (2009) stage 1 endometriosis Status post endovenous radiofrequency ablation (RFA) of saphenous vein for venous insufficiency 09/06/2018 wisdom teeth extraction Family History Mother Diabetes Heart disease Hyperlipidemia Father Colon cancer Heart disease Hyperlipidemia Sister Hyperlipidemia Grandfather Diabetes Grandfather Diabetes Hyperlipidemia Asthma Grandmother Diabetes Personal history of malignant neoplasm Breast Heart disease Hyperlipidemia Grandmother No problems noted. 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 Pets and animals: Yes Pets and animals: dog(s) Sexually active: Yes Do you think of yourself as: straight/heterosexual Current gender identity: female What is your relationship status?: never How often do you talk on the phone with friends or family?: three or more times per week How often do you get together with friends or relatives?: once per week How often do you attend congregational or latter-day services?: 1-3 times per year Do you belong to any clubs or organized social groups?: no Panel score (0-1 are the most socially isolated patients): 1 What type of physical activity do you participate in: other Duration: > 90 minutes/day Frequency: 5-6 times per week Melida/Cheondoism: None Do you feel safe at home: Yes Do you feel safe in your relationship?: Yes Exam Narrative Exam Narrative: General: Alert, well appearing, well nourished, in no acute distress. Head: Normocephalic, atraumatic Neck: Trachea midline, Neck supple. Cardiac: RRR, no murmurs appreciated Resp: No respiratory distress. CTAB. Abd: Soft, non-distended, nontender : No suprapubic tenderness. Extremities: No deformities. No peripheral edema. Neurologic: GCS 15. Moves all extremities freely against gravity Skin: Left flank with large oval area of erythema and tenderness, aproximately 10cm at it's widest point, with area of central induration, loop in place with no drainage. Course Vital Signs Vital signs: Vital Signs Temperature 36.8 C 12/20/22 17:40 Pulse 72 12/20/22 17:40 Respiratory Rate 15 12/20/22 17:40 Blood Pressure 129/79 12/20/22 17:40 Pulse Oximetry 98 12/20/22 17:40 Temperature 36.8 C 12/20/22 17:40 Temperature Source Temporal Artery Scan 12/20/22 17:40 Pulse 72 12/20/22 17:40 Respiratory Rate 15 12/20/22 17:40 Respiratory Effort Normal 12/20/22 17:50 Blood Pressure 129/79 12/20/22 17:40 Blood Pressure Position Sitting 12/20/22 17:40 Pulse Oximetry 98 12/20/22 17:40 Oxygen Delivery Method Room Air 12/20/22 17:40 Oxygen Flow Rate 0 12/20/22 17:40 Pain Level 10 12/20/22 17:40 Procedures Abscess I/D Site: Back Sedation/analgesia: Other (premedication with tylenol and oxycodone) Local Anesthetic: Lidocaine 2% Amount of anesthesia used (mL): 5 Technique: Incised with #11 Blade Amount of fluid expressed (mL): 3 Irrigation: Yes Packing used?: Iodoform POCUS Exam (ED) Limited Soft Tissue Exam DATE OF EXAM: 12/20/22 TIME OF EXAM: 18:15 PROVIDER THAT PERFORMED THE STUDY: Marilee Yu IS THIS A REPEAT EXAM DURING THIS ENCOUNTER: No LOCATION OF EXAM: Lower back/left side REASON FOR EXAM: Abscess VISUALIZED STRUCTURES: Fascia, Muscle, Skin and Subcutaneous tissue PERTINENT FINDINGS/IMPRESSION: Abscess left flank and Cellulitis left flank . Exam Complete
[2022-12-20] MEDS: Acetaminophen 500 MG TAB 1000 MG PO (18:24)
[2022-12-20] MEDS: oxyCODONE 5 MG TAB PO (18:24)
--- NOTE | 2022-12-22 09:46 | W.ED.FU ---
Follow Up Plan: Case discussed with patient as doxycycline extended release was ordered, switch to doxycycline 100 mg twice daily
== END 2022-12-20 19:59 | disposition home or self-care (01) ==
PROVIDERS: Emergency Provider Student in an Organized Health Care Education/Training Program; PCP Family Medicine
DX: L02.91 Cutaneous abscess, unspecified (principal); L03.312 Cellulitis of back [any part except buttock and flank]
CPT/HCPCS: 10060; 99284

== ENCOUNTER 2022-12-26 15:07 | Emergency (ER) | payer MEDICAID, SELFPAY ==
[2022-12-26 15:10] VITALS: BP 154/96; PULSE 55; RESP 16; TEMP 36.7; O2SAT 99
--- NOTE | 2022-12-26 15:15 | DI.CT_ITS ---
Exam(s) CT ABDOMEN PELVIS W EXAM: CT ABDOMEN PELVIS W CLINICAL HISTORY: left flank cellulitis, ?abscess TECHNIQUE: Imaging Protocol: Axial computed tomography images with coronal and sagittal reformatted images were created and reviewed CONTRAST MATERIAL: Intravenous: Omnipaque 350 Contrast volume:100 mL Oral: No COMPARISON: CT CT RENAL COLIC WO from 05/26/2022 FINDINGS: ABDOMEN: Lung Bases: Normal where visualized. Liver: There is decreased attenuation of the liver suggesting fatty infiltration. The liver is enlar ged. No measurable mass. Portal, Superior Mesenteric, and Splenic Veins: Unremarkable. Gallbladder and Biliary Tract: Status post cholecystectomy. No significant biliary ductal dilatation . Pancreas: Normal density, no abnormal calcifications or inflammatory process. Spleen: Normal. Adrenals: No masses seen. Kidneys: Normal size, contour and axis. No radiodense stones or obstructive uropathy. No masses seen. Abdominal Aorta: Abdominal portion non-dilated. Bowel: No obstruction or bowel wall thickening. Appendix is unremarkable. Peritoneal Cavity: There is a trace amount of free fluid in the pelvis which is likely physiologic. No free air. Lymph Nodes: Within normal limits. Bones: Within normal limits for the patient's age. Soft Tissues: There is a skin defect seen at the posterior lateral left flank. There is infiltration of the subcutaneous tissues along the left flank but no drainable abscess is identified. PELVIS: Bladder: Symmetric distention, no gross wall thickening. Reproductive Organs: Status post hysterectomy. Lymph Nodes: Within normal limits. Bones: Within normal limits for the patient's age. IMPRESSION: 1. Infiltration of the soft tissues along the left flank laterally but no drainable abscess is seen. 2. No acute abdominal or pelvic process. 3. Findings were discussed with Dr. Quan at 4:46 p.m. on 12/26/2022. RADIATION DOSE DELIVERED: Total DLP DATA REPOSITORY: All CT scans at this facility are submitted to the National Radiology Data Registry (NRDR) Dose Index Registry (DIR) with the [employer] (A[employer]). RADIATION OPTIMIZATION: All CT scans at this facility use at least one of these dose optimization te chniques: automated exposure control; mA and/or kV adjustment per patient size (includes targeted exa ms where dose is matched to clinical indication); or iterative reconstruction.
--- NOTE | 2022-12-26 15:23 | W.ED.GENAD ---
Discharge Plan Disposition Patient Disposition: Home Condition: Stable Discharge Details Clinical Impression: Cellulitis Primary Care Provider: Sharon Leach ED Provider: Austin Quan Home Meds and New Rx's Prescriptions: New sulfamethoxazole-trimethoprim [Bactrim DS] 800-160 mg tablet 1 tab PO BID Qty: 14 0RF Continued sertraline 50 mg tablet 50 mg PO HS Qty: 90 3RF trazodone 100 mg tablet 100 mg PO HS Qty: 90 4RF ondansetron 4 mg tablet,disintegrating 4 mg PO Q6H PRN (Reason: nausea and vomiting) Qty: 30 0RF clindamycin HCl [Cleocin HCl] 300 mg capsule 300 mg PO TID Qty: 21 0RF triamcinolone acetonide 0.1 % cream 1 applic topical BID Qty: 15 0RF doxycycline hyclate 100 mg capsule 100 mg PO BID Qty: 20 0RF Patient Comments: not taking anymore lidocaine 5 % ointment 1 applic topical BID PRN (Reason: pain) Qty: 50 0RF clindamycin phosphate 1 % gel, once daily 1 applic topical DAILY Qty: 60 3RF oxycodone 5 mg tablet 5 mg PO DAILY MDD 5mg PRN (Reason: pain) Qty: 5 0RF ibuprofen 800 mg tablet 800 mg PO Q8H PRN (Reason: pain) Qty: 30 1RF Saccharomyces boulardii [Florastor] 250 mg capsule 250 mg PO BID Qty: 14 0RF doxycycline hyclate 100 mg tablet 100 mg PO BID 10 Days Qty: 20 0RF Discharge Instructions Instructions: Cellulitis (ED) Additional Instructions: I have placed you on the follow up list to see general surgery if you feel more ill, have high fevers or spreading redness return to the emergency department Medical Decision Making 37 yo female with hx of hydranitis who developed an abscess in her left oblique area and had it drained last week comes in with continued drainage and states drainage smells awful. She denies fevers, chills, no pain other then near the open wound where the drainage is coming out. She denies abdominal pain, diarrhea. She is stable on arrival. She has 3x4cm of erythema over the mid left oblique with an open draining wound and a loop still in place placed by the first provider. NO crepitus, I do not visualize a continued abscess on u/s, will obtain cbc, cmp and ct to evaluate for deep abscess. labs with no significant abnormalities, ct with no other abscess, patient stable, will add bactrim. Given she has drainage and continued cellulitis loop will remain in place, will have her f/u with general surgery as well bisi, return precautions given Differential Diagnosis Differential Diagnosis: cellulitis abscess Imaging Data Radiologic Study: Attestation: I personally reviewed and interpreted this imaging study as follows: Imaging: CT Scan Radiologist's impression: no acute findings per Dr. Gonzalez [facility] General Mode of arrival: ambulatory. Date/Time Provider Initiated Documentation: 12/26/22 15:08. Limitations to Documentation: no limitations. Information obtained by: patient. History of Present Illness 37 year old F presents to the emergency department with the chief complaint of left flank abscess, described as moderate, Patient reports no radiation. and it has been constant. No relieving factors improve symptom(s), No exacerbating factors reported . Patient notes no other symptoms.. Patient did receive the following treatments prior to arrival, none Related Data Home Medications Medication Instructions Recorded Confirmed ibuprofen 800 mg tablet 800 mg PO Q8H PRN pain #30 tabs 02/27/20 12/18/22 lidocaine 5 % topical ointment 1 applic topical BID PRN pain #50 01/13/22 12/18/22 grams Saccharomyces boulardii 250 mg 250 mg PO BID #14 caps 05/01/22 12/18/22 capsule (Florastor) sertraline 50 mg tablet 50 mg PO HS #90 tabs 05/04/22 12/18/22 trazodone 100 mg tablet 100 mg PO HS #90 tabs 05/04/22 12/18/22 clindamycin phosphate 1 % topical 1 applic topical DAILY #60 grams 07/20/22 12/18/22 gel, once daily doxycycline hyclate 100 mg capsule 100 mg PO BID #20 caps 11/25/22 12/18/22 triamcinolone acetonide 0.1 % 1 applic topical BID #15 grams 11/25/22 12/18/22 topical cream ondansetron 4 mg disintegrating 4 mg PO Q6H PRN nausea and 12/07/22 12/18/22 tablet vomiting #30 tabs clindamycin HCl 300 mg capsule 300 mg PO TID #21 caps 12/15/22 12/18/22 (Cleocin HCl) oxycodone 5 mg tablet 5 mg PO DAILY PRN pain #5 tabs 12/19/22 doxycycline hyclate 100 mg tablet 100 mg PO BID 10 days #20 tabs 12/22/22 sulfamethoxazole 800 1 tab PO BID #14 tabs 12/26/22 mg-trimethoprim 160 mg tablet (Bactrim DS) Previous Rx's Medication Instructions Recorded ibuprofen 800 mg tablet 800 mg PO Q8H PRN pain #30 tabs 02/27/20 lidocaine 5 % topical ointment 1 applic topical BID PRN pain #50 01/13/22 grams Saccharomyces boulardii 250 mg 250 mg PO BID #14 caps 05/01/22 capsule (Florastor) sertraline 50 mg tablet 50 mg PO HS #90 tabs 05/04/22 trazodone 100 mg tablet 100 mg PO HS #90 tabs 05/04/22 clindamycin phosphate 1 % topical 1 applic topical DAILY #60 grams 07/20/22 gel, once daily doxycycline hyclate 100 mg capsule 100 mg PO BID #20 caps 11/25/22 triamcinolone acetonide 0.1 % 1 applic topical BID #15 grams 11/25/22 topical cream ondansetron 4 mg disintegrating 4 mg PO Q6H PRN nausea and 12/07/22 tablet vomiting #30 tabs clindamycin HCl 300 mg capsule 300 mg PO TID #21 caps 12/15/22 (Cleocin HCl) oxycodone 5 mg tablet 5 mg PO DAILY PRN pain #5 tabs 12/19/22 doxycycline hyclate 100 mg tablet 100 mg PO BID 10 days #20 tabs 12/22/22 sulfamethoxazole 800 1 tab PO BID #14 tabs 12/26/22 mg-trimethoprim 160 mg tablet (Bactrim DS) Allergies Allergy/AdvReac Type Severity Reaction Status Date / Time cyclobenzaprine Allergy Intermediate Hives Unverified 12/18/22 12:12 [From Flexeril] cephalexin [Cephalexin] AdvReac Severe Abdominal Verified 12/18/22 12:12 Cramps vancomycin AdvReac Severe diarrhea, Verified 12/18/22 12:12 redness acetaminophen AdvReac Intermediate Other (See Verified 12/18/22 12:12 Comment) Cephalosporins AdvReac Intermediate Diarrhea Verified 12/18/22 12:12 codeine phosphate AdvReac Intermediate Vomiting Verified 12/18/22 12:12 [From Tylenol-Codeine #3] ketorolac [From Toradol] AdvReac Intermediate Nausea Verified 12/18/22 12:12 silver AdvReac Intermediate Skin Rash Verified 12/18/22 12:12 [From Tegaderm AG Mesh] tramadol AdvReac Intermediate Diarrhea Verified 12/18/22 12:12 General Stated Complaint: Cellulitis HALINA: 3 Review of Systems All systems reviewed & are unremarkable except as noted in HPI and below Constitutional Constitutional: Denies chills, Denies fever(s) and Denies weakness Cardiovascular Cardiovascular: Denies chest pain and Denies dyspnea Respiratory Respiratory: Denies cough and Denies dyspnea Gastrointestinal Gastrointestinal: Denies abdominal pain, Denies nausea and Denies vomiting Genitourinary Genitourinary: Denies dysuria Neurologic Neurologic: Denies weakness PFSH All Active Problems (Updated 12/26/22 @ 16:52 by Austin Quan MD) Anxiety (Acute 02/11/13) panic Lymphedema of left lower extremity (Chronic) Loin pain hematuria syndrome (Acute) 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 Pending Humira start. [facility] [place] pain clinic referral. Obesity without serious comorbidity (Acute) Low HDL (under 40) (Acute) Palpable mass of soft tissue of knee (Acute) Cellulitis (Acute) Diarrhea (Acute) Abscess of flank (Acute) Medical History Anemia Endometriosis, unspecified LAPROSCOPY 2009 hysterect 2019 on OC for control Hepatic steatosis Hepatomegaly History of renal calculi History of tobacco abuse quit 01/2022 Vitamin D deficiency Surgical History EGD - MAC Extracorporeal shock wave lithotripsy Hx of hand surgery L hand, pt. reports nerves were fixed S/P laparoscopic assisted vaginal hysterectomy (LAVH) ovaries intact S/P laparoscopic cholecystectomy (2016) S/P laparoscopy (2009) stage 1 endometriosis Status post endovenous radiofrequency ablation (RFA) of saphenous vein for venous insufficiency 09/06/2018 wisdom teeth extraction Family History Mother Diabetes Heart disease Hyperlipidemia Father Colon cancer Heart disease Hyperlipidemia Sister Hyperlipidemia Grandfather Diabetes Grandfather Diabetes Hyperlipidemia Asthma Grandmother Diabetes Personal history of malignant neoplasm Breast Heart disease Hyperlipidemia Grandmother No problems noted. 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 Pets and animals: Yes Pets and animals: dog(s) Sexually active: Yes Do you think of yourself as: straight/heterosexual Current gender identity: female What is your relationship status?: never How often do you talk on the phone with friends or family?: three or more times per week How often do you get together with friends or relatives?: once per week How often do you attend sikhism or amish services?: 1-3 times per year Do you belong to any clubs or organized social groups?: no Panel score (0-1 are the most socially isolated patients): 1 What type of physical activity do you participate in: other Duration: > 90 minutes/day Frequency: 5-6 times per week Melida/Denominational: None Do you feel safe at home: Yes Do you feel safe in your relationship?: Yes Exam Const General: no acute distress Orientation: alert HENMT Head: normal to inspection Ears: external ears normal General nose exam: external nose normal Mouth: moist mucous membranes Eyes General: appearance normal, both eyes and all related structures Neck Neck: normal visual inspection Resp Effort & Inspection: normal respiratory effort and able to speak in complete sentences Cardio Rate: regular rate GI Palpation: soft and nontender Skin General skin exam: elasticity normal Neuro General: patient alert and patient oriented x3 Extrem General: normal to inspection Psych Mental Status: mental status grossly normal Course Vital Signs Vital signs: Vital Signs Temperature 36.7 C 12/26/22 15:10 Pulse 55 L 12/26/22 15:10 Respiratory Rate 16 12/26/22 15:10 Blood Pressure 154/96 H 12/26/22 15:10 Pulse Oximetry 99 12/26/22 15:10 Temperature 36.7 C 12/26/22 15:10 Temperature Source Temporal Artery Scan 12/26/22 15:10 Pulse 55 L 12/26/22 15:10 Respiratory Rate 16 12/26/22 15:10 Blood Pressure 154/96 H 12/26/22 15:10 Blood Pressure Position Sitting 12/26/22 15:10 Pulse Oximetry 99 12/26/22 15:10 Oxygen Delivery Method Room Air 12/26/22 15:10 Oxygen Flow Rate 0 12/26/22 15:10
[2022-12-26] MEDS: Normal Saline 1,000 ML 1000 ML IV (15:42)
[2022-12-26 15:43] LABS: Abs Immature Grans 0.02 10^3/uL (0.0-0.06); Absolute Basophil Count 0.05 10^3/uL (0.0-0.2); Absolute Eosinophil Count 0.06 10^3/uL (0.0-0.7); Absolute Lymphocyte Count 2.07 10^3/uL (1.2-3.4); Absolute Neutrophil Count 5.29 10^3/uL (1.2-6.7); Basophils % 0.6; Eosinophils % 0.8; HCT 44.4 % (36.0-46.0); HGB 15.3 g/dL (11.2-15.7); Immature Grans % 0.3; Lymphocytes % 26.2; MCH 32.4 pg (27.0-33.0); MCHC 34.5 % (32.0-36.0); MCV 94 fL (80-95); MPV 9.9 fL (8.0-11.0); Monocytes % 5.1; Platelet Count 251 10^3/uL (130-400); RBC 4.72 10^6/uL (3.93-5.22); RDW 11.7 % (11.7-14.6); RDW-SD 40.4 fL; WBC 7.89 10^3/uL (4.4-10.8)
[2022-12-26] MEDS: Ketorolac 15 MG/ML VIAL IVP (15:43)
[2022-12-26] MEDS: Normal Saline - Diluent 50 ML VIAL IJ (16:01)
[2022-12-26] MEDS: Omnipaque 350 MG/ML 100 ML BTL IJ (16:01)
[2022-12-26 16:03] LABS: ALT 20 U/L (14-59); AST 11 U/L (15-37); Alkaline Phosphatase 97 U/L (46-116); Anion Gap 7.6 mmol/L (3-11); BUN 9 mg/dL (7-18); Bilirubin, Total 0.2 mg/dL (0.2-1.0); C-Reactive Protein 0.58 mg/dL (0.0-0.3); CO2 28.4 mmol/L (21.0-32.0); CREATININE 0.6 mg/dL (0.55-1.02); Calcium 9.5 mg/dL (8.5-10.1); Chloride 102 mmol/L (98-107); Estimated GFR 119.23 (mL/min/1.73m2); Glucose 107 mg/dL (74-106); Magnesium 2.1 mg/dL (1.8-2.4); Potassium 3.3 mmol/L (3.5-5.1); Sodium 138 mmol/L (136-145); Total Protein 7.8 g/dL (6.4-8.2)
[2022-12-26] MEDS: Droperidol 5 MG/2 ML VIAL 2.5 MG IVP (16:11)
[2022-12-26 16:28] LABS: Procalcitonin < 0.1 ng/mL
--- NOTE | 2022-12-26 17:17 | NUR.NOTE ---
Referral [facility] for [facility] with loop drain in place to be seen [facility]. Nursing Note:
[2022-12-26 17:32] VITALS: BP 154/96; PULSE 55; RESP 16; TEMP 36.7; O2SAT 99
--- NOTE | 2022-12-29 09:51 | NUR.NOTE ---
Accessed chart to look up the antibiotic prescribed for infection.
== END 2022-12-26 17:34 | disposition home or self-care (01) ==
PROVIDERS: Emergency Provider Emergency Medicine; PCP Family Medicine
DX: L02.211 Cutaneous abscess of abdominal wall (principal); L03.311 Cellulitis of abdominal wall
CPT/HCPCS: 80053; 84145; 87077; 96374; 96375; 99285; 74177; 83735; 85025; 86140; 87070; 87186; 87205; 99284; J1790; J1885; J3490

== ENCOUNTER 2023-01-09 17:21 | Emergency (ER) | payer MEDICAID, SELFPAY ==
[2023-01-09 17:22] VITALS: BP 139/93; PULSE 77; RESP 15; TEMP 36.4; O2SAT 99
[2023-01-09] MEDS: oxyCODONE 5 MG TAB PO (17:44)
[2023-01-09] MEDS: Ibuprofen 600 MG TAB PO (17:44)
--- NOTE | 2023-01-09 17:56 | W.ED.GENAD ---
Discharge Plan Disposition Patient Disposition: Home Discharge Details Clinical Impression: Abscess, Hidradenitis Primary Care Provider: Sharon Leach ED Provider: Karthikeyan Quan Home Meds and New Rx's Prescriptions: New sulfamethoxazole-trimethoprim [Bactrim DS] 800-160 mg tablet 1 tab PO BID 10 Days Qty: 20 0RF oxycodone 5 mg tablet 5 mg PO Q6H PRN (Reason: pain) Qty: 3 0RF No Action sertraline 50 mg tablet 50 mg PO HS Qty: 90 3RF trazodone 100 mg tablet 100 mg PO HS Qty: 90 4RF ondansetron 4 mg tablet,disintegrating 4 mg PO Q6H PRN (Reason: nausea and vomiting) Qty: 30 0RF triamcinolone acetonide 0.1 % cream 1 applic topical BID Qty: 15 0RF lidocaine 5 % ointment 1 applic topical BID PRN (Reason: pain) Qty: 50 0RF clindamycin phosphate 1 % gel, once daily 1 applic topical DAILY Qty: 60 3RF ibuprofen 800 mg tablet 800 mg PO Q8H PRN (Reason: pain) Qty: 30 1RF Saccharomyces boulardii [Florastor] 250 mg capsule 250 mg PO BID Qty: 14 0RF Discharge Instructions Instructions: Abscess (ED) Additional Instructions: You were seen in the emergency department for an abscess in your right armpit. This is likely her hidradenitis. You agreed to undergo an incision and drainage. We got a small amount of pus out of the area. Take the prescribed antibiotics for the full course even if you start to have improvement in symptoms. Take Tylenol and ibuprofen for pain. Follow-up with the surgeon and your primary care doctor. Return to the emergency department if you have any other concerns. Referrals: Sharon Leach MD [Primary Care Provider] - 2 weeks Medical Decision Making 37-year-old female presents with an abscess in the right axilla. This appears simple. Patient gave verbal consent for incision and drainage. Gave her some pain medications before performing this and also anesthetize the area. Small amount of pus and some blood coming from the area. Small area so did not perform packing. No systemic symptoms and normal for labs. Will start on antibiotics and discharged with return precautions. HPI General Mode of arrival: ambulatory. Date/Time Provider Initiated Documentation: 01/09/23 17:32. Limitations to Documentation: no limitations. Information obtained by: patient. HPI Narrative: 37-year-old female presents with rash under the right armpit. Has long history of hidradenitis suppurativa. Considering starting meds with her firefighter type one at [facility] that she sees in April. Recently seen multiple times for abscess on her left flank that is now improved and resolving. Says over the last few days she has developed an abscess in her right armpit. She denies fevers or chills or other systemic symptoms. Denies any other complaints. Related Data Home Medications Medication Instructions Recorded Confirmed ibuprofen 800 mg tablet 800 mg PO Q8H PRN pain #30 tabs 02/27/20 01/09/23 lidocaine 5 % topical ointment 1 applic topical BID PRN pain #50 01/13/22 01/09/23 grams Saccharomyces boulardii 250 mg 250 mg PO BID #14 caps 05/01/22 01/09/23 capsule (Florastor) sertraline 50 mg tablet 50 mg PO HS #90 tabs 05/04/22 01/09/23 trazodone 100 mg tablet 100 mg PO HS #90 tabs 05/04/22 01/09/23 clindamycin phosphate 1 % topical 1 applic topical DAILY #60 grams 07/20/22 01/09/23 gel, once daily triamcinolone acetonide 0.1 % 1 applic topical BID #15 grams 11/25/22 01/09/23 topical cream ondansetron 4 mg disintegrating 4 mg PO Q6H PRN nausea and 12/07/22 01/09/23 tablet vomiting #30 tabs oxycodone 5 mg tablet 5 mg PO Q6H PRN pain #3 tabs 01/09/23 sulfamethoxazole 800 1 tab PO BID 10 days #20 tabs 01/09/23 mg-trimethoprim 160 mg tablet (Bactrim DS) Previous Rx's Medication Instructions Recorded ibuprofen 800 mg tablet 800 mg PO Q8H PRN pain #30 tabs 02/27/20 lidocaine 5 % topical ointment 1 applic topical BID PRN pain #50 01/13/22 grams Saccharomyces boulardii 250 mg 250 mg PO BID #14 caps 05/01/22 capsule (Florastor) sertraline 50 mg tablet 50 mg PO HS #90 tabs 05/04/22 trazodone 100 mg tablet 100 mg PO HS #90 tabs 05/04/22 clindamycin phosphate 1 % topical 1 applic topical DAILY #60 grams 07/20/22 gel, once daily triamcinolone acetonide 0.1 % 1 applic topical BID #15 grams 11/25/22 topical cream ondansetron 4 mg disintegrating 4 mg PO Q6H PRN nausea and 12/07/22 tablet vomiting #30 tabs oxycodone 5 mg tablet 5 mg PO Q6H PRN pain #3 tabs 01/09/23 sulfamethoxazole 800 1 tab PO BID 10 days #20 tabs 01/09/23 mg-trimethoprim 160 mg tablet (Bactrim DS) Allergies Allergy/AdvReac Type Severity Reaction Status Date / Time cyclobenzaprine Allergy Intermediate Hives Unverified 01/09/23 17:26 [From Flexeril] cephalexin [Cephalexin] AdvReac Severe Abdominal Verified 01/09/23 17:26 Cramps vancomycin AdvReac Severe diarrhea, Verified 01/09/23 17:26 redness acetaminophen AdvReac Intermediate Other (See Verified 01/09/23 17:26 Comment) Cephalosporins AdvReac Intermediate Diarrhea Verified 01/09/23 17:26 codeine phosphate AdvReac Intermediate Vomiting Verified 01/09/23 17:26 [From Tylenol-Codeine #3] ketorolac [From Toradol] AdvReac Intermediate Nausea Verified 01/09/23 17:26 silver AdvReac Intermediate Skin Rash Verified 01/09/23 17:26 [From Tegaderm AG Mesh] tramadol AdvReac Intermediate Diarrhea Verified 01/09/23 17:26 General Stated Complaint: RashLesion HALINA: 4 Review of Systems Constitutional Constitutional: Denies chills, Denies fever(s) and Denies headache(s) Eyes Eyes: Denies change in vision ENT Ears, Nose, Mouth, and Throat: Denies headache(s) and Denies odynophagia Cardiovascular Cardiovascular: Denies chest pain and Denies dyspnea Respiratory Respiratory: Denies dyspnea Gastrointestinal Gastrointestinal: Denies abdominal pain, Denies diarrhea, Denies nausea, Denies odynophagia and Denies vomiting Genitourinary Genitourinary: Denies dysuria Musculoskeletal Musculoskeletal: Denies myalgias Integumentary/Breasts Skin/Breast: Reports other (Right armpit abscess) Neurologic Neurologic: Denies behavioral changes and Denies headache(s) Psychiatric Psychiatric: Denies behavioral changes Endocrine Endocrine: Denies heat intolerance Hematologic/Lymphatic Hematologic/Lymphatic: Denies lymphadenopathy PFSH All Active Problems Hidradenitis (Acute) Abscess (Acute) Abscess of flank (Acute) Diarrhea (Acute) Palpable mass of soft tissue of knee (Acute) Low HDL (under 40) (Acute) Obesity without serious comorbidity (Acute) Hidradenitis suppurativa (Acute) bilateral, managed at [facility] derm. Pending Humira start. [facility] did pain clinic referral. Bilateral ovarian cysts (Chronic) seen on multiple imaging studies Loin pain hematuria syndrome (Acute) never officially diagnosed by pressurised container filler Lymphedema of left lower extremity (Chronic) Anxiety (Acute 02/11/13) panic Medical History History of tobacco abuse quit 01/2022 History of renal calculi Endometriosis, unspecified LAPROSCOPY 2009 hysterect 2019 on OC for control Hepatomegaly Vitamin D deficiency Anemia Hepatic steatosis Surgical History S/P laparoscopy (2009) stage 1 endometriosis S/P laparoscopic cholecystectomy (2016) S/P laparoscopic assisted vaginal hysterectomy (LAVH) ovaries intact Hx of hand surgery L hand, pt. reports nerves were fixed Status post endovenous radiofrequency ablation (RFA) of saphenous vein for venous insufficiency 09/06/2018 wisdom teeth extraction Extracorporeal shock wave lithotripsy EGD - MAC Family History Mother Diabetes Heart disease Hyperlipidemia Father Colon cancer Heart disease Hyperlipidemia Sister Hyperlipidemia Grandfather Diabetes Grandfather Diabetes Hyperlipidemia Asthma Grandmother Diabetes Personal history of malignant neoplasm Breast Heart disease Hyperlipidemia Grandmother No problems noted. 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 Pets and animals: Yes Pets and animals: dog(s) Sexually active: Yes Do you think of yourself as: straight/heterosexual Current gender identity: female What is your relationship status?: never How often do you talk on the phone with friends or family?: three or more times per week How often do you get together with friends or relatives?: once per week How often do you attend adventist or amish services?: 1-3 times per year Do you belong to any clubs or organized social groups?: no Panel score (0-1 are the most socially isolated patients): 1 What type of physical activity do you participate in: other Duration: > 90 minutes/day Frequency: 5-6 times per week Melida/Scientologist: None Do you feel safe at home: Yes Do you feel safe in your relationship?: Yes Exam Const General: cooperative Nutritional Appearance: average body habitus Orientation: alert, awake and oriented x3 HENMT Head: normal to inspection Ears: external ears normal Mouth: moist mucous membranes Eyes Pupils: PERRL EOM: EOM intact bilaterally and No nystagmus Neck Neck: full ROM and no tracheal deviation Chest Other: Right axilla with a small 2 cm area of fluctuance redness and tenderness. Previous scars in this area from previous incision and drainage for other abscesses from hidradenitis suppurativa. Resp Auscultation: clear to auscultation bilaterally Cardio Rate: regular rate Rhythm: regular rhythm GI Inspection: normal to inspection Palpation: soft, no guarding, not rigid and nontender Back/Spine/Pelvis Back: No no CVA tenderness Thoracic/Lumbar Spine: thoracic and lumbar spine normal to inspection Skin General skin exam: no rashes or lesions noted Neuro General: patient alert, patient awake and patient oriented x3 Cranial Nerves: CN's II-XI intact bilaterally, PERRL and no nystagmus Cognition: normal cognition Motor: muscle tone normal throughout and strength 5/5 throughout Sensory Exam: no sensory deficits noted Extrem General: normal to inspection Course Vital Signs Vital signs: Vital Signs Temperature 36.4 C L 01/09/23 17:22 Pulse 77 01/09/23 17:22 Respiratory Rate 15 01/09/23 17:22 Blood Pressure 139/93 H 01/09/23 17:22 Pulse Oximetry 99 01/09/23 17:22 Temperature 36.4 C L 01/09/23 17:22 Temperature Source Temporal Artery Scan 01/09/23 17:22 Pulse 77 01/09/23 17:22 Respiratory Rate 15 01/09/23 17:22 Respiratory Effort Normal 01/09/23 17:25 Blood Pressure 139/93 H 01/09/23 17:22 Blood Pressure Position Sitting 01/09/23 17:22 Pulse Oximetry 99 01/09/23 17:22 Oxygen Delivery Method Room Air 01/09/23 17:22 Oxygen Flow Rate 0 01/09/23 17:22 Pain Level 10 01/09/23 17:22 Procedures Abscess I/D Site: Other (right axilla) Side (if applicable): Right Local Anesthetic: Lidocaine 2% and With Epi Amount of anesthesia used (mL): 8 Technique: Incised with #11 Blade Amount of fluid expressed (mL): 3 Irrigation: No Packing used?: None Complications: Bleeding
== END 2023-01-09 18:09 | disposition home or self-care (01) ==
PROVIDERS: Emergency Provider Student in an Organized Health Care Education/Training Program; PCP Family Medicine
DX: L02.411 Cutaneous abscess of right axilla; L73.2 Hidradenitis suppurativa; Z87.2 Personal history of diseases of the skin and subcutaneous tissue; Z79.899 Other long term (current) drug therapy
CPT/HCPCS: 10060; 99283

== ENCOUNTER 2023-01-16 15:42 | Emergency (ER) | payer MEDICAID, SELFPAY ==
[2023-01-16 15:43] VITALS: BP 162/94; PULSE 66; RESP 15; TEMP 36.5; O2SAT 100
--- NOTE | 2023-01-16 16:49 | W.ED.GENAD ---
Discharge Plan Disposition Patient Disposition: Home Condition: Good Discharge Details Clinical Impression: Abscess Primary Care Provider: Sharon Leach ED Provider: Rory Chowdary [place] Meds and New Rx's Prescriptions: Continued sertraline 50 mg tablet 50 mg PO HS Qty: 90 3RF trazodone 100 mg tablet 100 mg PO HS Qty: 90 4RF ondansetron 4 mg tablet,disintegrating 4 mg PO Q6H PRN (Reason: nausea and vomiting) Qty: 30 0RF triamcinolone acetonide 0.1 % cream 1 applic topical BID Qty: 15 0RF lidocaine 5 % ointment 1 applic topical BID PRN (Reason: pain) Qty: 50 0RF clindamycin phosphate 1 % gel, once daily 1 applic topical DAILY Qty: 60 3RF sulfamethoxazole-trimethoprim [Bactrim DS] 800-160 mg tablet 1 tab PO BID 10 Days Qty: 20 0RF oxycodone 5 mg tablet 5 mg PO Q6H PRN (Reason: pain) Qty: 3 0RF ibuprofen 800 mg tablet 800 mg PO Q8H PRN (Reason: pain) Qty: 30 1RF Saccharomyces boulardii [Florastor] 250 mg capsule 250 mg PO BID Qty: 14 0RF Discharge Instructions Instructions: Abscess (ED), Opioid Safety (ED) Additional Instructions: A tiny abscess was seen on ultrasound with minimal drainage after incision. Unable to pack due to small size so try to keep it open over the next couple of days using a Q-tip as we discussed. Continue taking your Bactrim. 4 tablets of oxycodone supplied to go to help with pain. Follow-up with primary care short-term and anglesmith helper long-term as we discussed. Return to ED for any worsening pain, swelling, fever, other concerns. Medical Decision Making Patient presenting with pain and swelling in the right axilla status post I&D about 1 week ago for same complaint. Currently on Bactrim. Began having pain and swelling this morning and worsening over the day. History of hidradenitis. On exam there is swelling and tenderness but minimal fluctuance. Ultrasound did show a very small pocket of fluid, presumed abscess. After discussion and verbal consent skin was anesthetized with 1% lidocaine with epinephrine. Small incision made with 11 blade with minimal purulent material drained. Wound was irrigated but too small for packing. Discussed trying to keep open for the next day or two by gently pushing open the incision with Q-tip. She should continue her Bactrim. She is given a take-home quantity of oxycodone, 4 tablets. Short-term follow-up with primary care and long-term follow-up with dermatology whom she will be contacting given her recent worsening of recurrent abscesses. Return precautions provided. Medical Records Medical records reviewed: Yes I reviewed the patient's medical records. HPI General Mode of arrival: ambulatory. Date/Time Provider Initiated Documentation: 01/16/23 15:52. Limitations to Documentation: no limitations. Information obtained by: patient and old records reviewed. HPI Narrative: Patient presenting with right axilla pain and swelling with history of hidradenitis and abscesses. Seen here on the for similar as well as various other ED visits for abscess. Currently on Bactrim from the as well as her suppressive clindamycin. No fever or chills. No significant associated erythema. Related Data Home Medications Medication Instructions Recorded Confirmed ibuprofen 800 mg tablet 800 mg PO Q8H PRN pain #30 tabs 02/27/20 01/16/23 lidocaine 5 % topical ointment 1 applic topical BID PRN pain #50 01/13/22 01/16/23 grams Saccharomyces boulardii 250 mg 250 mg PO BID #14 caps 05/01/22 01/16/23 capsule (Florastor) sertraline 50 mg tablet 50 mg PO HS #90 tabs 05/04/22 01/16/23 trazodone 100 mg tablet 100 mg PO HS #90 tabs 05/04/22 01/16/23 clindamycin phosphate 1 % topical 1 applic topical DAILY #60 grams 07/20/22 01/16/23 gel, once daily triamcinolone acetonide 0.1 % 1 applic topical BID #15 grams 11/25/22 01/16/23 topical cream ondansetron 4 mg disintegrating 4 mg PO Q6H PRN nausea and 12/07/22 01/16/23 tablet vomiting #30 tabs oxycodone 5 mg tablet 5 mg PO Q6H PRN pain #3 tabs 01/09/23 01/16/23 sulfamethoxazole 800 1 tab PO BID 10 days #20 tabs 01/09/23 01/16/23 mg-trimethoprim 160 mg tablet (Bactrim DS) Previous Rx's Medication Instructions Recorded ibuprofen 800 mg tablet 800 mg PO Q8H PRN pain #30 tabs 02/27/20 lidocaine 5 % topical ointment 1 applic topical BID PRN pain #50 01/13/22 grams Saccharomyces boulardii 250 mg 250 mg PO BID #14 caps 05/01/22 capsule (Florastor) sertraline 50 mg tablet 50 mg PO HS #90 tabs 05/04/22 trazodone 100 mg tablet 100 mg PO HS #90 tabs 05/04/22 clindamycin phosphate 1 % topical 1 applic topical DAILY #60 grams 07/20/22 gel, once daily triamcinolone acetonide 0.1 % 1 applic topical BID #15 grams 11/25/22 topical cream ondansetron 4 mg disintegrating 4 mg PO Q6H PRN nausea and 12/07/22 tablet vomiting #30 tabs oxycodone 5 mg tablet 5 mg PO Q6H PRN pain #3 tabs 01/09/23 sulfamethoxazole 800 1 tab PO BID 10 days #20 tabs 01/09/23 mg-trimethoprim 160 mg tablet (Bactrim DS) Allergies Allergy/AdvReac Type Severity Reaction Status Date / Time cyclobenzaprine Allergy Intermediate Hives Unverified 01/16/23 15:48 [From Flexeril] cephalexin [Cephalexin] AdvReac Severe Abdominal Verified 01/16/23 15:48 Cramps vancomycin AdvReac Severe diarrhea, Verified 01/16/23 15:48 redness acetaminophen AdvReac Intermediate Other (See Verified 01/16/23 15:48 Comment) Cephalosporins AdvReac Intermediate Diarrhea Verified 01/16/23 15:48 codeine phosphate AdvReac Intermediate Vomiting Verified 01/16/23 15:48 [From Tylenol-Codeine #3] ketorolac [From Toradol] AdvReac Intermediate Nausea Verified 01/16/23 15:48 silver AdvReac Intermediate Skin Rash Verified 01/16/23 15:48 [From Tegaderm AG Mesh] tramadol AdvReac Intermediate Diarrhea Verified 01/16/23 15:48 General Stated Complaint: RashLesion HALINA: 4 Review of Systems Narrative: Per HPI PFSH All Active Problems Hidradenitis (Acute) Abscess (Acute) Abscess of flank (Acute) Diarrhea (Acute) Palpable mass of soft tissue of knee (Acute) Low HDL (under 40) (Acute) Obesity without serious comorbidity (Acute) Hidradenitis suppurativa (Acute) bilateral, managed at [facility] derm. Pending Humira start. [facility] did pain clinic referral. Bilateral ovarian cysts (Chronic) seen on multiple imaging studies Loin pain hematuria syndrome (Acute) never officially diagnosed by assurance analyst Lymphedema of left lower extremity (Chronic) Anxiety (Acute 02/11/13) panic Medical History History of tobacco abuse quit 01/2022 History of renal calculi Endometriosis, unspecified LAPROSCOPY 2009 hysterect 2019 on OC for control Hepatomegaly Vitamin D deficiency Anemia Hepatic steatosis Surgical History S/P laparoscopy (2009) stage 1 endometriosis S/P laparoscopic cholecystectomy (2016) S/P laparoscopic assisted vaginal hysterectomy (LAVH) ovaries intact Hx of hand surgery L hand, pt. reports nerves were fixed Status post endovenous radiofrequency ablation (RFA) of saphenous vein for venous insufficiency 09/06/2018 wisdom teeth extraction Extracorporeal shock wave lithotripsy EGD - MAC Family History Mother Diabetes Heart disease Hyperlipidemia Father Colon cancer Heart disease Hyperlipidemia Sister Hyperlipidemia Grandfather Diabetes Grandfather Diabetes Hyperlipidemia Asthma Grandmother Diabetes Personal history of malignant neoplasm Breast Heart disease Hyperlipidemia Grandmother No problems noted. 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 Pets and animals: Yes Pets and animals: dog(s) Sexually active: Yes Do you think of yourself as: straight/heterosexual Current gender identity: female What is your relationship status?: never How often do you talk on the phone with friends or family?: three or more times per week How often do you get together with friends or relatives?: once per week How often do you attend caodaism or hinduism services?: 1-3 times per year Do you belong to any clubs or organized social groups?: no Panel score (0-1 are the most socially isolated patients): 1 What type of physical activity do you participate in: other Duration: > 90 minutes/day Frequency: 5-6 times per week Melida/Mormonism: None Do you feel safe at home: Yes Do you feel safe in your relationship?: Yes Exam Narrative Exam Narrative: Const: WDWN female in NAD. HEENT: NC/AT. Normal facial exam. Eyes: Normal conjunctiva and sclera. Neck: Supple. Trachea midline. Lungs: Normal respiratory effort. Neuro: A+O x 3. Normal speech, mentation, gait. Cranial nerves II - XII grossly intact. No gross motor or sensory deficit. Ext: No C/C/E. Skin: Warm and dry. Small area of tenderness and swelling but minimal fluctuance in right axilla. Course Vital Signs Vital signs: Vital Signs Temperature 97.7 F 01/16/23 15:43 Pulse 66 01/16/23 15:43 Respiratory Rate 15 01/16/23 15:43 Blood Pressure 162/94 H 01/16/23 15:43 Pulse Oximetry 100 01/16/23 15:43 Temperature 97.7 F 01/16/23 15:43 Temperature Source Temporal Artery Scan 01/16/23 15:43 Pulse 66 01/16/23 15:43 Respiratory Rate 15 01/16/23 15:43 Respiratory Effort Normal 01/16/23 15:47 Blood Pressure 162/94 H 01/16/23 15:43 Blood Pressure Position Sitting 01/16/23 15:43 Pulse Oximetry 100 01/16/23 15:43 Oxygen Delivery Method Room Air 01/16/23 15:43 Oxygen Flow Rate 0 01/16/23 15:43 Pain Level 10 01/16/23 15:43 Procedures Abscess I/D Site: Upper Extremity Side (if applicable): Right Local Anesthetic: Lidocaine 1% and With Epi Amount of anesthesia used (mL): 1.5 Technique: Incised with #11 Blade Irrigation: Yes Packing used?: None POCUS Exam (ED) Limited Soft Tissue Exam DATE OF EXAM: 01/16/23 TIME OF EXAM: 16:49 PROVIDER THAT PERFORMED THE STUDY: Rory Chowdary IS THIS A REPEAT EXAM DURING THIS ENCOUNTER: No LOCATION OF EXAM: Axilla/right side REASON FOR EXAM: Abscess VISUALIZED STRUCTURES: Subcutaneous tissue PERTINENT FINDINGS/IMPRESSION: Abscess small superficial pocket . Exam Complete
[2023-01-16] MEDS: Lidocaine 1% Multi-Dose W/EPI 1/100,000 10 ML VIAL 3 ML IJ (16:52)
== END 2023-01-16 17:35 | disposition home or self-care (01) ==
PROVIDERS: Emergency Provider Emergency Medicine; PCP Family Medicine
DX: L02.411 Cutaneous abscess of right axilla (principal); Z87.2 Personal history of diseases of the skin and subcutaneous tissue
CPT/HCPCS: 10060; 76882; 99284; 99283

== ENCOUNTER 2023-01-30 12:15 | Emergency (ER) | payer MEDICAID, SELFPAY ==
[2023-01-30 12:20] VITALS: BP 138/84; PULSE 71; RESP 16; TEMP 36.9; O2SAT 98
--- NOTE | 2023-01-30 13:25 | ED.GENADUL_ITS ---
Discharge Plan Disposition Patient Disposition: Home Condition: Stable Discharge Details Clinical Impression: Abscess of axilla, right Primary Care Provider: Unknown,Unknown ED Provider: Marina Moe Home Meds and New Rx's Prescriptions: New clindamycin HCl 150 mg capsule 450 mg PO TID 7 Days Qty: 63 0RF Rx Instructions: PLease take 3 tablets three times a day for next 7 days No Action sertraline 50 mg tablet 50 mg PO HS Qty: 90 3RF trazodone 100 mg tablet 100 mg PO HS Qty: 90 4RF ondansetron 4 mg tablet,disintegrating 4 mg PO Q6H PRN (Reason: nausea and vomiting) Qty: 30 0RF triamcinolone acetonide 0.1 % cream 1 applic topical BID Qty: 15 0RF lidocaine 5 % ointment 1 applic topical BID PRN (Reason: pain) Qty: 50 0RF clindamycin phosphate 1 % gel, once daily 1 applic topical DAILY Qty: 60 3RF oxycodone 5 mg tablet 5 mg PO Q6H PRN (Reason: pain) Qty: 3 0RF ibuprofen 800 mg tablet 800 mg PO Q8H PRN (Reason: pain) Qty: 30 1RF Saccharomyces boulardii [Florastor] 250 mg capsule 250 mg PO BID Qty: 14 0RF Discharge Instructions Instructions: Abscess (ED) Additional Instructions: Please follow-up with dermatology or general surgery. A small amount of packing was placed. Please do not leave that in longer than 3 days. Keep clean and dry. Take the antibiotics as directed. You were given the first dose here. Please take Ibuprofen with food every 4-6 hours as needed for pain and swelling. Referrals: Elsie Salazar DO [OSTEOPATHIC DOCTOR] - 3 days Medical Decision Making 37 year old female presents to the ED with cc of right axilaary abscess. She has a history of hidradenatis suprativa and does not have a dermatology appointment until April. She is requesting I&D, antibiotics and pain medication. No surrounding erythema, positive induration palpated. Denies fever, chills or myalgias. Abscess incision and drainage performed, no purulent drainage expressed, patient tolerated well. Anesthesized with 1% lidocaine and Epi, cleaned with chlorahexadine and small 0.5cm incision made. Iodoform packing placed. Will place patient on Clindamycin and give Oxycodone to go. Referral to General surgery and dermatology. Dressing applied. This text was generated using [employer] dictation system, please disregard any oddities of phrase or misspellings. HPI General Mode of arrival: ambulatory . Date/Time Provider Initiated Documentation: 01/30/23 12:26 . Limitations to Documentation: no limitations . Information obtained by: patient, RN notes reviewed and old records reviewed . HPI Narrative: 37 year old female presents to the ED with cc of right axilaary abscess. She has a history of hidradenatis suprativa and does not have a dermatology appointment until April. She is requesting I&D, antibiotics and pain medication. No surrounding erythema, positive induration palpated. Denies fever, chills or myalgias. Related Data Home Medications Medication Instructions Recorded Confirmed ibuprofen 800 mg tablet 800 mg PO Q8H PRN pain #30 tabs 02/27/20 01/30/23 lidocaine 5 % topical ointment 1 applic topical BID PRN pain #50 01/13/22 01/30/23 grams Saccharomyces boulardii 250 mg 250 mg PO BID #14 caps 05/01/22 01/30/23 capsule (Florastor) sertraline 50 mg tablet 50 mg PO HS #90 tabs 05/04/22 01/30/23 trazodone 100 mg tablet 100 mg PO HS #90 tabs 05/04/22 01/30/23 clindamycin phosphate 1 % topical 1 applic topical DAILY #60 grams 07/20/22 01/30/23 gel, once daily triamcinolone acetonide 0.1 % 1 applic topical BID #15 grams 11/25/22 01/30/23 topical cream ondansetron 4 mg disintegrating 4 mg PO Q6H PRN nausea and 12/07/22 01/30/23 tablet vomiting #30 tabs oxycodone 5 mg tablet 5 mg PO Q6H PRN pain #3 tabs 01/09/23 01/30/23 clindamycin HCl 150 mg capsule 450 mg (3 x 150 mg) PO TID 7 days 01/30/23 #63 caps Previous Rx's Medication Instructions Recorded ibuprofen 800 mg tablet 800 mg PO Q8H PRN pain #30 tabs 02/27/20 lidocaine 5 % topical ointment 1 applic topical BID PRN pain #50 01/13/22 grams Saccharomyces boulardii 250 mg 250 mg PO BID #14 caps 05/01/22 capsule (Florastor) sertraline 50 mg tablet 50 mg PO HS #90 tabs 05/04/22 trazodone 100 mg tablet 100 mg PO HS #90 tabs 05/04/22 clindamycin phosphate 1 % topical 1 applic topical DAILY #60 grams 07/20/22 gel, once daily triamcinolone acetonide 0.1 % 1 applic topical BID #15 grams 11/25/22 topical cream ondansetron 4 mg disintegrating 4 mg PO Q6H PRN nausea and 12/07/22 tablet vomiting #30 tabs oxycodone 5 mg tablet 5 mg PO Q6H PRN pain #3 tabs 01/09/23 clindamycin HCl 150 mg capsule 450 mg (3 x 150 mg) PO TID 7 days 01/30/23 #63 caps Allergies Allergy/AdvReac Type Severity Reaction Status Date / Time cyclobenzaprine Allergy Intermediate Hives Unverified 01/30/23 12:24 [From Flexeril] cephalexin [Cephalexin] AdvReac Severe Abdominal Verified 01/30/23 12:24 Cramps vancomycin AdvReac Severe diarrhea, Verified 01/30/23 12:24 redness acetaminophen AdvReac Intermediate Other (See Verified 01/30/23 12:24 Comment) Cephalosporins AdvReac Intermediate Diarrhea Verified 01/30/23 12:24 codeine phosphate AdvReac Intermediate Vomiting Verified 01/30/23 12:24 [From Tylenol-Codeine #3] ketorolac [From Toradol] AdvReac Intermediate Nausea Verified 01/30/23 12:24 silver AdvReac Intermediate Skin Rash Verified 01/30/23 12:24 [From Tegaderm AG Mesh] tramadol AdvReac Intermediate Diarrhea Verified 01/30/23 12:24 General Stated Complaint: Cellulitis HALINA: 3 Review of Systems Integumentary/Breasts Skin/Breast: Reports as per HPI and Reports skin swelling PFSH All Active Problems (Updated 01/30/23 @ 13:50 by Marina Moe NP) Abscess of axilla, right (Acute) Hidradenitis (Acute) Abscess (Acute) Diarrhea (Acute) Palpable mass of soft tissue of knee (Acute) Low HDL (under 40) (Acute) Obesity without serious comorbidity (Acute) Hidradenitis suppurativa (Acute) bilateral, [place] [facility] [place] Pending Humira start. [facility] [place] clinic [place]. Bilateral ovarian cysts (Chronic) seen on multiple imaging studies Loin pain hematuria syndrome (Acute) never officially diagnosed by warehouse order picker Lymphedema of left lower extremity (Chronic) Anxiety (Acute 02/11/13) panic Medical History History of tobacco abuse quit 01/2022 History of renal calculi Endometriosis, unspecified LAPROSCOPY 2009 hysterect 2019 on OC for control Hepatomegaly Vitamin D deficiency Anemia Hepatic steatosis Surgical History S/P laparoscopy (2009) stage 1 endometriosis S/P laparoscopic cholecystectomy (2016) S/P laparoscopic assisted vaginal hysterectomy (LAVH) ovaries intact Hx of hand surgery L hand, pt. reports nerves were fixed Status post endovenous radiofrequency ablation (RFA) of saphenous vein for venous insufficiency 09/06/2018 wisdom teeth extraction Extracorporeal shock wave lithotripsy EGD - MAC Family History Mother Diabetes Heart disease Hyperlipidemia Father Colon cancer Heart disease Hyperlipidemia Sister Hyperlipidemia Grandfather Diabetes Grandfather Diabetes Hyperlipidemia Asthma Grandmother Diabetes Personal history of malignant neoplasm Breast Heart disease Hyperlipidemia Grandmother No problems noted. 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 Pets and animals: Yes Pets and animals: dog(s) Sexually active: Yes Do you think of yourself as: straight/heterosexual Current gender identity: female What is your relationship status?: never How often do you talk on the phone with friends or family?: three or more times per week How often do you get together with friends or relatives?: once per week How often do you attend tenriism or hoahaoism services?: 1-3 times per year Do you belong to any clubs or organized social groups?: no Panel score (0-1 are the most socially isolated patients): 1 What type of physical activity do you participate in: other Duration: > 90 minutes/day Frequency: 5-6 times per week Melida/Congregational: None Do you feel safe at home: Yes Do you feel safe in your relationship?: Yes Exam Chest Chest/axillae images: 2 1. Approximately 2cm x 2cm palpable mass to right axillae. Course Vital Signs Vital signs: Vital Signs Temperature 36.9 C 01/30/23 12:20 Pulse 71 01/30/23 12:20 Respiratory Rate 16 01/30/23 12:20 Blood Pressure 138/84 01/30/23 12:20 Pulse Oximetry 98 01/30/23 12:20 Temperature 36.9 C 01/30/23 12:20 Temperature Source Skin 01/30/23 12:20 Pulse 71 01/30/23 12:20 Respiratory Rate 16 01/30/23 12:20 Blood Pressure 138/84 01/30/23 12:20 Blood Pressure Position Sitting 01/30/23 12:20 Pulse Oximetry 98 01/30/23 12:20 Oxygen Delivery Method Room Air 01/30/23 12:20 Oxygen Flow Rate 0 01/30/23 12:20 Pain Level 10 01/30/23 12:20 Procedures Abscess I/D Site: Upper Extremity (Right axillae) Side (if applicable): Right Sedation/analgesia: None Local Anesthetic: Lidocaine 1% and With Epi Amount of anesthesia used (mL): 3 Technique: Incised with #11 Blade Amount of fluid expressed (mL): 0.5 Irrigation: No Packing used?: Iodoform Complications: Pain, Bleeding and Other (No purulent drainage expressed)
[2023-01-30] MEDS: Clindamycin 150 MG CAP 450 MG PO (13:33)
[2023-01-30] MEDS: oxyCODONE 5 MG TAB PO (13:34)
== END 2023-01-30 14:00 | disposition home or self-care (01) ==
PROVIDERS: Emergency Provider Registered Nurse Emergency
DX: L02.411 Cutaneous abscess of right axilla (principal)
CPT/HCPCS: 99283; 99284

== ENCOUNTER 2023-02-01 13:35 | Emergency (ER) | payer MEDICAID, SELFPAY ==
[2023-02-01 13:40] VITALS: BP 122/82; PULSE 65; RESP 14; TEMP 36.9; O2SAT 99
--- NOTE | 2023-02-01 13:57 | ED.GENADUL_ITS ---
Discharge Plan Disposition Patient Disposition: Home Discharge Details Clinical Impression: Hidradenitis suppurativa Primary Care Provider: Unknown,Unknown ED Provider: Karthikeyan Quan Home Meds and New Rx's Prescriptions: New sulfamethoxazole-trimethoprim [Bactrim DS] 800-160 mg tablet 1 tab PO BID 5 Days Qty: 10 0RF No Action sertraline 50 mg tablet 50 mg PO HS Qty: 90 3RF trazodone 100 mg tablet 100 mg PO HS Qty: 90 4RF ondansetron 4 mg tablet,disintegrating 4 mg PO Q6H PRN (Reason: nausea and vomiting) Qty: 30 0RF triamcinolone acetonide 0.1 % cream 1 applic topical BID Qty: 15 0RF lidocaine 5 % ointment 1 applic topical BID PRN (Reason: pain) Qty: 50 0RF clindamycin phosphate 1 % gel, once daily 1 applic topical DAILY Qty: 60 3RF oxycodone 5 mg tablet 5 mg PO Q6H PRN (Reason: pain) Qty: 3 0RF clindamycin HCl 150 mg capsule 450 mg PO TID 7 Days Qty: 63 0RF Rx Instructions: PLease take 3 tablets three times a day for next 7 days ibuprofen 800 mg tablet 800 mg PO Q8H PRN (Reason: pain) Qty: 30 1RF Saccharomyces boulardii [Florastor] 250 mg capsule 250 mg PO BID Qty: 14 0RF Discharge Instructions Instructions: Hidradenitis Suppurativa (ED) Additional Instructions: You were seen in the emergency department for pain in your right armpit. This is likely your hidradenitis suppurativa. There is no abscess collection on ultrasound. Continue your clindamycin. I have given you a short course of Bactrim to help additionally. Continue with 1000 mg of Tylenol every 6 hours for pain. You can take 600 mg of ibuprofen/Motrin every 6 hours for pain. Apply Lidoderm patches to the area for pain. I have referred you to our primary care referral team as you should follow-up with your primary care doctor for further pain management. Follow-up with your appointment manager. Return here if you have any other concerns. Stand Alone Forms: Work Release Medical Decision Making 37-year-old female presents with right armpit pain. Likely represents hidradenitis suppurativa. This does not look overtly infectious at this time. Bedside ultrasound not showing any abscess collection below the skin and clinically does not appear to have an abscess collection on my evaluation. She is already on clindamycin. I think that this is an inflammatory disorder from her hidradenitis suppurativa and I do not think that this is related to a severe soft tissue infection such as an abscess or cellulitis. There is no signs of systemic infection or sepsis on exam or history. There is still some evidence that antibiotics may help improve hidradenitis suppurativa and we will give her a short course of Bactrim. I verbalized to her that she needs to follow-up with her primary care doctor for further pain management as she did not accept my suggestions of gabapentin and lidocaine patches in addition to Tylenol and ibuprofen for her pain. She says she has been referred to acute pain clinics. I told her she can follow-up with her primary care doctor if there is delay getting into a pain clinic. She expresses understanding. She has had oxycodone prescribed at these visits over the last 2 months. We will not prescribe this now because this is a medication that should be managed by her primary care doctor if she is going to take it for chronic medical condition/pain. Will discharge with return precautions. Medical Records Medical records reviewed: Yes I reviewed the patient's medical records. HPI General Mode of arrival: ambulatory . Date/Time Provider Initiated Documentation: 02/01/23 13:37 . Limitations to Documentation: no limitations . Information obtained by: patient . HPI Narrative: 37-year-old female with history of hidradenitis suppurativa presents with pain in her right armpit. Multiple visits over the last 2 months for similar. Has had 3 incision and drainage procedures over the last few weeks with only small amounts of pus and most and some without any pus. Currently on clindamycin after I&D 2 days ago. Says the drain fell out of it today and she was having worsening pain so she came here. No systemic symptoms or fevers. Related Data Home Medications Medication Instructions Recorded Confirmed ibuprofen 800 mg tablet 800 mg PO Q8H PRN pain #30 tabs 02/27/20 01/30/23 lidocaine 5 % topical ointment 1 applic topical BID PRN pain #50 01/13/22 01/30/23 grams Saccharomyces boulardii 250 mg 250 mg PO BID #14 caps 05/01/22 01/30/23 capsule (Florastor) sertraline 50 mg tablet 50 mg PO HS #90 tabs 05/04/22 01/30/23 trazodone 100 mg tablet 100 mg PO HS #90 tabs 05/04/22 01/30/23 clindamycin phosphate 1 % topical 1 applic topical DAILY #60 grams 07/20/22 01/30/23 gel, once daily triamcinolone acetonide 0.1 % 1 applic topical BID #15 grams 11/25/22 01/30/23 topical cream ondansetron 4 mg disintegrating 4 mg PO Q6H PRN nausea and 12/07/22 01/30/23 tablet vomiting #30 tabs oxycodone 5 mg tablet 5 mg PO Q6H PRN pain #3 tabs 01/09/23 01/30/23 clindamycin HCl 150 mg capsule 450 mg (3 x 150 mg) PO TID 7 days 01/30/23 #63 caps sulfamethoxazole 800 1 tab PO BID 5 days #10 tabs 02/01/23 mg-trimethoprim 160 mg tablet (Bactrim DS) Previous Rx's Medication Instructions Recorded ibuprofen 800 mg tablet 800 mg PO Q8H PRN pain #30 tabs 02/27/20 lidocaine 5 % topical ointment 1 applic topical BID PRN pain #50 01/13/22 grams Saccharomyces boulardii 250 mg 250 mg PO BID #14 caps 05/01/22 capsule (Florastor) sertraline 50 mg tablet 50 mg PO HS #90 tabs 05/04/22 trazodone 100 mg tablet 100 mg PO HS #90 tabs 05/04/22 clindamycin phosphate 1 % topical 1 applic topical DAILY #60 grams 07/20/22 gel, once daily triamcinolone acetonide 0.1 % 1 applic topical BID #15 grams 11/25/22 topical cream ondansetron 4 mg disintegrating 4 mg PO Q6H PRN nausea and 12/07/22 tablet vomiting #30 tabs oxycodone 5 mg tablet 5 mg PO Q6H PRN pain #3 tabs 01/09/23 clindamycin HCl 150 mg capsule 450 mg (3 x 150 mg) PO TID 7 days 01/30/23 #63 caps sulfamethoxazole 800 1 tab PO BID 5 days #10 tabs 02/01/23 mg-trimethoprim 160 mg tablet (Bactrim DS) Allergies Allergy/AdvReac Type Severity Reaction Status Date / Time cyclobenzaprine Allergy Intermediate Hives Unverified 01/30/23 12:24 [From Flexeril] cephalexin [Cephalexin] AdvReac Severe Abdominal Verified 01/30/23 12:24 Cramps vancomycin AdvReac Severe diarrhea, Verified 01/30/23 12:24 redness acetaminophen AdvReac Intermediate Other (See Verified 01/30/23 12:24 Comment) Cephalosporins AdvReac Intermediate Diarrhea Verified 01/30/23 12:24 codeine phosphate AdvReac Intermediate Vomiting Verified 01/30/23 12:24 [From Tylenol-Codeine #3] ketorolac [From Toradol] AdvReac Intermediate Nausea Verified 01/30/23 12:24 silver AdvReac Intermediate Skin Rash Verified 01/30/23 12:24 [From Tegaderm AG Mesh] tramadol AdvReac Intermediate Diarrhea Verified 01/30/23 12:24 General Stated Complaint: Cellulitis HALINA: 4 Review of Systems Constitutional Constitutional: Denies chills, Denies fever(s) and Denies headache(s) Eyes Eyes: Denies change in vision ENT Ears, Nose, Mouth, and Throat: Denies headache(s) and Denies odynophagia Cardiovascular Cardiovascular: Denies chest pain and Denies dyspnea Respiratory Respiratory: Denies dyspnea Gastrointestinal Gastrointestinal: Denies abdominal pain, Denies diarrhea, Denies nausea, Denies odynophagia and Denies vomiting Genitourinary Genitourinary: Denies dysuria Musculoskeletal Musculoskeletal: Denies myalgias Integumentary/Breasts Comments: rash in right armpit Neurologic Neurologic: Denies behavioral changes and Denies headache(s) Psychiatric Psychiatric: Denies behavioral changes Endocrine Endocrine: Denies heat intolerance Hematologic/Lymphatic Hematologic/Lymphatic: Denies lymphadenopathy PFSH All Active Problems Abscess of axilla, right (Acute) Hidradenitis (Acute) Abscess (Acute) Diarrhea (Acute) Palpable mass of soft tissue of knee (Acute) Low HDL (under 40) (Acute) Obesity without serious comorbidity (Acute) Hidradenitis suppurativa (Acute) bilateral, [place] [facility] P[place] Humira start. [facility]. Bilateral ovarian cysts (Chronic) seen on multiple imaging studies Loin pain hematuria syndrome (Acute) never officially diagnosed by senior credit analyst Lymphedema of left lower extremity (Chronic) Anxiety (Acute 02/11/13) panic Medical History History of tobacco abuse quit 01/2022 History of renal calculi Endometriosis, unspecified LAPROSCOPY 2009 hysterect 2019 on OC for control Hepatomegaly Vitamin D deficiency Anemia Hepatic steatosis Surgical History S/P laparoscopy (2009) stage 1 endometriosis S/P laparoscopic cholecystectomy (2016) S/P laparoscopic assisted vaginal hysterectomy (LAVH) ovaries intact Hx of hand surgery L hand, pt. reports nerves were fixed Status post endovenous radiofrequency ablation (RFA) of saphenous vein for venous insufficiency 09/06/2018 wisdom teeth extraction Extracorporeal shock wave lithotripsy EGD - MAC Family History Mother Diabetes Heart disease Hyperlipidemia Father Colon cancer Heart disease Hyperlipidemia Sister Hyperlipidemia Grandfather Diabetes Grandfather Diabetes Hyperlipidemia Asthma Grandmother Diabetes Personal history of malignant neoplasm Breast Heart disease Hyperlipidemia Grandmother No problems noted. 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 Pets and animals: Yes Pets and animals: dog(s) Sexually active: Yes Do you think of yourself as: straight/heterosexual Current gender identity: female What is your relationship status?: never How often do you talk on the phone with friends or family?: three or more times per week How often do you get together with friends or relatives?: once per week How often do you attend orthodoxy or anabaptist services?: 1-3 times per year Do you belong to any clubs or organized social groups?: no Panel score (0-1 are the most socially isolated patients): 1 What type of physical activity do you participate in: other Duration: > 90 minutes/day Frequency: 5-6 times per week Melida/Yarsanism: None Do you feel safe at home: Yes Do you feel safe in your relationship?: Yes Exam Const General: cooperative Nutritional Appearance: average body habitus Orientation: alert, awake and oriented x3 HENMT Head: normal to inspection Ears: external ears normal Mouth: moist mucous membranes Eyes Pupils: PERRL EOM: EOM intact bilaterally and No nystagmus Neck Neck: full ROM and no tracheal deviation Chest Chest: normal inspection of the chest Resp Auscultation: clear to auscultation bilaterally Cardio Rate: regular rate Rhythm: regular rhythm GI Inspection: normal to inspection Palpation: soft, no guarding, not rigid and nontender Back/Spine/Pelvis Back: No no CVA tenderness Thoracic/Lumbar Spine: thoracic and lumbar spine normal to inspection Skin Other: Has some areas of scarring in the right armpit. I can see the site of her incision and drainage 2 days ago. There is no drain present and it looks like the skin is mostly closed at this time. There is no fluctuance palpated and noted to this area or throughout the right armpit where she is describing the pain. No overlying redness or warmth. The area is tender to the touch. Neuro General: patient alert, patient awake and patient oriented x3 Cranial Nerves: CN's II-XI intact bilaterally, PERRL and no nystagmus Cognition: normal cognition Motor: muscle tone normal throughout and strength 5/5 throughout Sensory Exam: no sensory deficits noted Extrem General: normal to inspection Course Vital Signs Vital signs: Vital Signs Temperature 36.9 C 02/01/23 13:40 Pulse 65 02/01/23 13:40 Respiratory Rate 14 02/01/23 13:40 Blood Pressure 122/82 02/01/23 13:40 Pulse Oximetry 99 02/01/23 13:40 Temperature 36.9 C 02/01/23 13:40 Temperature Source Oral 02/01/23 13:40 Pulse 65 02/01/23 13:40 Respiratory Rate 14 02/01/23 13:40 Blood Pressure 122/82 02/01/23 13:40 Blood Pressure Position Sitting 02/01/23 13:40 Pulse Oximetry 99 11/15/23 13:40 Oxygen Delivery Method Room Air 02/01/23 13:40 Oxygen Flow Rate 0 02/01/23 13:40 Pain Level 10 02/01/23 13:40 Comment warm soaks/compresses cold compresses tylenol and ibuprofen taking clindamycin 02/01/23 13:40
--- NOTE | 2023-02-01 13:58 | NUR.NOTE ---
Nursing Note:PT needs PCP to establish care. [place], ED
== END 2023-02-01 14:13 | disposition home or self-care (01) ==
PROVIDERS: Emergency Provider Student in an Organized Health Care Education/Training Program
DX: L73.2 Hidradenitis suppurativa (principal); Z87.891 Personal history of nicotine dependence
CPT/HCPCS: 99283

== ENCOUNTER 2023-02-14 11:33 | Emergency (ER) | payer MEDICAID, SELFPAY ==
[2023-02-14 11:42] VITALS: BP 144/92; PULSE 86; RESP 18; TEMP 36.3; O2SAT 98
--- NOTE | 2023-02-14 12:31 | W.ED.GENAD ---
Discharge Plan Disposition Patient Disposition: Home Condition: Stable Discharge Details Clinical Impression: Abscess, dental Primary Care Provider: Unknown,Unknown ED Provider: Eddi Parikh Meds and New Rx's Prescriptions: New clindamycin HCl 150 mg capsule 150 mg PO TID Qty: 20 0RF Continued sertraline 50 mg tablet 50 mg PO HS Qty: 90 3RF trazodone 100 mg tablet 100 mg PO HS Qty: 90 4RF ondansetron 4 mg tablet,disintegrating 4 mg PO Q6H PRN (Reason: nausea and vomiting) Qty: 30 0RF triamcinolone acetonide 0.1 % cream 1 applic topical BID Qty: 15 0RF lidocaine 5 % ointment 1 applic topical BID PRN (Reason: pain) Qty: 50 0RF clindamycin phosphate 1 % gel, once daily 1 applic topical DAILY Qty: 60 3RF ibuprofen 800 mg tablet 800 mg PO Q8H PRN (Reason: pain) Qty: 30 1RF Saccharomyces boulardii [Florastor] 250 mg capsule 250 mg PO BID Qty: 14 0RF Discharge Instructions Instructions: Dental Abscess (ED) Discharge Data Discharge Physician: Eddi Parikh Medical Decision Making Patient was likely has a tooth abscess in the left upper molar where a broken tooth exists. She will be given antibiotics and is to continue analgesics and follow-up with the dentist in [facility] for definite results HPI General Date/Time Provider Initiated Documentation: 02/14/23 12:31. HPI Narrative: Patient presents emergency department complaining of left upper molar pain in the tooth that broke and she does not have a dentist. She is been taking ibuprofen and Tylenol with no improvement. Related Data Home Medications Medication Instructions Recorded Confirmed ibuprofen 800 mg tablet 800 mg PO Q8H PRN pain #30 tabs 02/27/20 02/14/23 lidocaine 5 % topical ointment 1 applic topical BID PRN pain #50 01/13/22 02/14/23 grams Saccharomyces boulardii 250 mg 250 mg PO BID #14 caps 05/01/22 02/14/23 capsule (Florastor) sertraline 50 mg tablet 50 mg PO HS #90 tabs 05/04/22 02/14/23 trazodone 100 mg tablet 100 mg PO HS #90 tabs 05/04/22 02/14/23 clindamycin phosphate 1 % topical 1 applic topical DAILY #60 grams 07/20/22 02/14/23 gel, once daily triamcinolone acetonide 0.1 % 1 applic topical BID #15 grams 11/25/22 02/14/23 topical cream ondansetron 4 mg disintegrating 4 mg PO Q6H PRN nausea and 12/07/22 02/14/23 tablet vomiting #30 tabs clindamycin HCl 150 mg capsule 150 mg PO TID #20 caps 02/14/23 Previous Rx's Medication Instructions Recorded ibuprofen 800 mg tablet 800 mg PO Q8H PRN pain #30 tabs 02/27/20 lidocaine 5 % topical ointment 1 applic topical BID PRN pain #50 01/13/22 grams Saccharomyces boulardii 250 mg 250 mg PO BID #14 caps 05/01/22 capsule (Florastor) sertraline 50 mg tablet 50 mg PO HS #90 tabs 05/04/22 trazodone 100 mg tablet 100 mg PO HS #90 tabs 05/04/22 clindamycin phosphate 1 % topical 1 applic topical DAILY #60 grams 07/20/22 gel, once daily triamcinolone acetonide 0.1 % 1 applic topical BID #15 grams 11/25/22 topical cream ondansetron 4 mg disintegrating 4 mg PO Q6H PRN nausea and 12/07/22 tablet vomiting #30 tabs clindamycin HCl 150 mg capsule 150 mg PO TID #20 caps 02/14/23 Allergies Allergy/AdvReac Type Severity Reaction Status Date / Time cyclobenzaprine Allergy Intermediate Hives Unverified 02/14/23 11:44 [From Flexeril] cephalexin [Cephalexin] AdvReac Severe Abdominal Verified 02/14/23 11:44 Cramps vancomycin AdvReac Severe diarrhea, Verified 02/14/23 11:44 redness acetaminophen AdvReac Intermediate Other (See Verified 02/14/23 11:44 Comment) Cephalosporins AdvReac Intermediate Diarrhea Verified 02/14/23 11:44 codeine phosphate AdvReac Intermediate Vomiting Verified 02/14/23 11:44 [From Tylenol-Codeine #3] ketorolac [From Toradol] AdvReac Intermediate Nausea Verified 02/14/23 11:44 silver AdvReac Intermediate Skin Rash Verified 02/14/23 11:44 [From Tegaderm AG Mesh] tramadol AdvReac Intermediate Diarrhea Verified 02/14/23 11:44 General Stated Complaint: DentalOral AHLINA: 4 Review of Systems Narrative: Review of Systems: Constitutional: No fevers, chills, sweats Eye: No recent visual problems ENT: No ear pain, nasal congestion, sore throat Respiratory: No shortness of breath, cough Cardiovascular: No Chest pain, palpitations, syncope Gastrointestinal: No nausea, vomiting, diarrhea Genitourinary: No hematuria Jorden/Lymph: Negative for bruising tendency, swollen lymph glands Endocrine: Negative for excessive thirst, excessive hunger Musculoskeletal: No back pain, neck pain, joint pain, muscle pain, decreased range of motion Integumentary: No rash, pruritus, abrasions Neurologic: Alert & oriented X 4 Psychiatric: No anxiety, depression PFSH All Active Problems (Updated 02/14/23 @ 12:36 by Eddi Parikh MD) Abscess, dental (Acute) Abscess of axilla, right (Acute) Diarrhea (Acute) Palpable mass of soft tissue of knee (Acute) Low HDL (under 40) (Acute) Obesity without serious comorbidity (Acute) Hidradenitis suppurativa (Acute) bilateral, managed at [facility] derm. Pending Humira start. [facility] did pain clinic referral. 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 reports nerves were fixed Status post endovenous radiofrequency ablation (RFA) of saphenous vein for venous insufficiency 09/06/2018 wisdom teeth extraction Extracorporeal shock wave lithotripsy EGD - MAC Family History Mother Diabetes Heart disease Hyperlipidemia Father Colon cancer Heart disease Hyperlipidemia Sister Hyperlipidemia Grandfather Diabetes Grandfather Diabetes Hyperlipidemia Asthma Grandmother Diabetes Personal history of malignant neoplasm Breast Heart disease Hyperlipidemia Grandmother No problems noted. 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 Pets and animals: Yes Pets and animals: dog(s) Sexually active: Yes Do you think of yourself as: straight/heterosexual Current gender identity: female What is your relationship status?: never How often do you talk on the phone with friends or family?: three or more times per week How often do you get together with friends or relatives?: once per week How often do you attend cheondoism or bahai services?: 1-3 times per year Do you belong to any clubs or organized social groups?: no Panel score (0-1 are the most socially isolated patients): 1 What type of physical activity do you participate in: other Duration: > 90 minutes/day Frequency: 5-6 times per week Melida/Scientologist: None Do you feel safe at home: Yes Do you feel safe in your relationship?: Yes Exam Narrative Exam Narrative: Exam; vitals signs as reported above normal Constitutional; In no acute distress, afebrile General: cooperative, healthy appearing, comfortable and no acute distress HEENT: Head: normal to inspection, no palpable skull fracture and normocephalic atraumatic Eyes: : appearance normal, both eyes and all related structures EOM intact bilaterally Pupils: PERRL : conjunctiva normal Direct ophthalmoscopy: normal light reflex, normal conjunctiva, normal visual acuity Ears: Normal TM, normal external canal Nose: normal no rhinorreha Oral: Poor dentition with multiple tooth decay and a left upper molar with decay with gingival swelling Neck no JVD, supple non tender Neck: normal visual inspection, full ROM and no lymphadenopathy Chest: normal inspection of the chest Respiratory : normal respiratory effort and able to speak in complete sentences no wheezing no rales Cardio Rate: regular rate, rhythm: regular rhythm normal heart sounds S1 and S2 no murmurs, gallops, or rubs GI : normal to inspection, normal bowel sounds, soft, non tender, non distended, no organomegaly Back/Spine/ no CVA tenderness Thoracic/Lumbar Spine: no tenderness or deformities Skin no rashes or lesions Neuro: patient alert oriented x 4 and no meningeal signs, Cranial Nerves: CN's II-XI intact bilaterally, Cognition: normal cognition, Speech: speech normal, Gait: normal gait, Depp tendon reflexes normal 2+ muscle strength 5/5 bilaterally Extremities, no edema, full range of motion, normal strength : normal Rectal: Course Vital Signs Vital signs: Vital Signs Temperature 36.3 C L 02/14/23 11:42 Pulse 86 02/14/23 11:42 Respiratory Rate 18 02/14/23 11:42 Blood Pressure 144/92 H 02/14/23 11:42 Pulse Oximetry 98 02/14/23 11:42 Temperature 36.3 C L 02/14/23 11:42 Temperature Source Skin 02/14/23 11:42 Pulse 86 02/14/23 11:42 Respiratory Rate 18 02/14/23 11:42 Respiratory Effort Normal, Non-Labored 02/14/23 11:45 Blood Pressure 144/92 H 02/14/23 11:42 Blood Pressure Position Sitting 02/14/23 11:42 Pulse Oximetry 98 02/14/23 11:42 Oxygen Delivery Method Room Air 02/14/23 11:42 Oxygen Flow Rate 0 02/14/23 11:42 Pain Level 10 02/14/23 11:46
[2023-02-14] MEDS: Clindamycin 150 MG CAP PO (12:45)
== END 2023-02-14 12:47 | disposition home or self-care (01) ==
PROVIDERS: Emergency Provider Emergency Medicine Emergency Medical Services
DX: S02.5XXA Fracture of tooth (traumatic), initial encounter for closed fracture (principal); K04.7 Periapical abscess without sinus; X58.XXXA Exposure to other specified factors, initial encounter
CPT/HCPCS: 99283

== ENCOUNTER 2023-03-06 17:36 | Emergency (ER) | payer MEDICAID, SELFPAY ==
[2023-03-06 17:40] VITALS: BP 174/96; PULSE 74; RESP 18; TEMP 36.4; O2SAT 99
--- NOTE | 2023-03-06 18:26 | ED.GENADUL_ITS ---
Discharge Plan Disposition Patient Disposition: Home Condition: Stable Discharge Details Clinical Impression: Abscess, dental Primary Care Provider: Unknown,Unknown ED Provider: Sulema Soriano Home Meds and New Rx's Prescriptions: Continued sertraline 50 mg tablet 50 mg PO HS Qty: 90 3RF trazodone 100 mg tablet 100 mg PO HS Qty: 90 4RF ondansetron 4 mg tablet,disintegrating 4 mg PO Q6H PRN (Reason: nausea and vomiting) Qty: 30 0RF triamcinolone acetonide 0.1 % cream 1 applic topical BID Qty: 15 0RF lidocaine 5 % ointment 1 applic topical BID PRN (Reason: pain) Qty: 50 0RF clindamycin phosphate 1 % gel, once daily 1 applic topical DAILY Qty: 60 3RF ibuprofen 800 mg tablet 800 mg PO Q8H PRN (Reason: pain) Qty: 30 1RF Saccharomyces boulardii [Florastor] 250 mg capsule 250 mg PO BID Qty: 14 0RF Changed clindamycin HCl 150 mg capsule 300 mg PO TID Qty: 42 0RF Discharge Instructions Instructions: Dental Abscess (ED) Additional Instructions: You should establish with a dentist as soon as possible for definitive care. Take antibiotics as prescribed. Continue [id number] pain medication as recommended Referrals: Unknown,Unknown [Primary Care Provider] - (Dental) Discharge Data Discharge Date/Time-TO BE ENTERED AT DEPARTURE: 03/06/23 18:46 Medical Decision Making Patient presents with complaints of recurrent dental pain. States the first dose of clindamycin did not help. She has had no fever she is eating and drinking her vital signs are stable. Will repeat course of clindamycin but did encourage her to seek dental provider for definitive care. She was requesting something to help her sleep and get rid of the pain. Did discuss that she needs to follow-up for definitive care. Did discuss dental block which she declines at this time Medical Records Medical records reviewed: Yes I reviewed the patient's medical records. HPI General Mode of arrival: ambulatory . Date/Time Provider Initiated Documentation: 03/06/23 17:46 . Limitations to Documentation: no limitations . Information obtained by: patient . HPI Narrative: Recurrent left upper dental pain. She states she was treated for a dental infection a month ago and her symptoms have not improved. She is waiting to get in with the dentist she has no had no fever or chills she is using [id number] Tylenol and ibuprofen. She is able to eat and drink. She is requesting something to help her sleep and to get rid of the pain Related Data Home Medications Medication Instructions Recorded Confirmed ibuprofen 800 mg tablet 800 mg PO Q8H PRN pain #30 tabs 02/27/20 02/14/23 lidocaine 5 % topical ointment 1 applic topical BID PRN pain #50 01/13/22 02/14/23 grams Saccharomyces boulardii 250 mg 250 mg PO BID #14 caps 05/01/22 02/14/23 capsule (Florastor) sertraline 50 mg tablet 50 mg PO HS #90 tabs 05/04/22 02/14/23 trazodone 100 mg tablet 100 mg PO HS #90 tabs 05/04/22 02/14/23 clindamycin phosphate 1 % topical 1 applic topical DAILY #60 grams 07/20/22 02/14/23 gel, once daily triamcinolone acetonide 0.1 % 1 applic topical BID #15 grams 11/25/22 02/14/23 topical cream ondansetron 4 mg disintegrating 4 mg PO Q6H PRN nausea and 12/07/22 02/14/23 tablet vomiting #30 tabs clindamycin HCl 150 mg capsule 300 mg (2 x 150 mg) PO TID #42 caps 03/06/23 Previous Rx's Medication Instructions Recorded ibuprofen 800 mg tablet 800 mg PO Q8H PRN pain #30 tabs 02/27/20 lidocaine 5 % topical ointment 1 applic topical BID PRN pain #50 01/13/22 grams Saccharomyces boulardii 250 mg 250 mg PO BID #14 caps 05/01/22 capsule (Florastor) sertraline 50 mg tablet 50 mg PO HS #90 tabs 05/04/22 trazodone 100 mg tablet 100 mg PO HS #90 tabs 05/04/22 clindamycin phosphate 1 % topical 1 applic topical DAILY #60 grams 07/20/22 gel, once daily triamcinolone acetonide 0.1 % 1 applic topical BID #15 grams 11/25/22 topical cream ondansetron 4 mg disintegrating 4 mg PO Q6H PRN nausea and 12/07/22 tablet vomiting #30 tabs clindamycin HCl 150 mg capsule 300 mg (2 x 150 mg) PO TID #42 caps 03/06/23 Allergies Allergy/AdvReac Type Severity Reaction Status Date / Time cyclobenzaprine Allergy Intermediate Hives Unverified 02/14/23 11:44 [From Flexeril] cephalexin [Cephalexin] AdvReac Severe Abdominal Verified 02/14/23 11:44 Cramps vancomycin AdvReac Severe diarrhea, Verified 02/14/23 11:44 redness acetaminophen AdvReac Intermediate Other (See Verified 02/14/23 11:44 Comment) Cephalosporins AdvReac Intermediate Diarrhea Verified 02/14/23 11:44 codeine phosphate AdvReac Intermediate Vomiting Verified 02/14/23 11:44 [From Tylenol-Codeine #3] ketorolac [From Toradol] AdvReac Intermediate Nausea Verified 02/14/23 11:44 silver AdvReac Intermediate Skin Rash Verified 02/14/23 11:44 [From Tegaderm AG Mesh] tramadol AdvReac Intermediate Diarrhea Verified 02/14/23 11:44 General Stated Complaint: DentalOral HALINA: 4 Review of Systems All systems reviewed & are unremarkable except as noted in HPI and below PFSH All Active Problems (Updated 03/06/23 @ 18:27 by Sulema Soriano NP) Abscess, dental (Acute) Diarrhea (Acute) Palpable mass of soft tissue of knee (Acute) Low HDL (under 40) (Acute) Obesity without serious comorbidity (Acute) Hidradenitis suppurativa (Acute) bilateral, [place] [facility] [place]. Pending Humira start. [facility] [place]. Bilateral ovarian cysts (Chronic) seen on multiple imaging studies Loin pain hematuria syndrome (Acute) never officially diagnosed by red cap Lymphedema of left lower extremity (Chronic) Anxiety (Acute 02/11/13) panic Medical History History of tobacco abuse quit 01/2022 History of renal calculi Endometriosis, unspecified LAPROSCOPY 2009 hysterect 2019 on OC for control Hepatomegaly Vitamin D deficiency Anemia Hepatic steatosis Surgical History S/P laparoscopy (2009) stage 1 endometriosis S/P laparoscopic cholecystectomy (2016) S/P laparoscopic assisted vaginal hysterectomy (LAVH) ovaries intact Hx of hand surgery L hand, pt. reports nerves were fixed Status post endovenous radiofrequency ablation (RFA) of saphenous vein for venous insufficiency 09/06/2018 wisdom teeth extraction Extracorporeal shock wave lithotripsy EGD - MAC Family History Mother Diabetes Heart disease Hyperlipidemia Father Colon cancer Heart disease Hyperlipidemia Sister Hyperlipidemia Grandfather Diabetes Grandfather Diabetes Hyperlipidemia Asthma Grandmother Diabetes Personal history of malignant neoplasm Breast Heart disease Hyperlipidemia Grandmother No problems noted. 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 Pets and animals: Yes Pets and animals: dog(s) Sexually active: Yes Do you think of yourself as: straight/heterosexual Current gender identity: female What is your relationship status?: never How often do you talk on the phone with friends or family?: three or more times per week How often do you get together with friends or relatives?: once per week How often do you attend baptist or hindu services?: 1-3 times per year Do you belong to any clubs or organized social groups?: no Panel score (0-1 are the most socially isolated patients): 1 What type of physical activity do you participate in: other Duration: > 90 minutes/day Frequency: 5-6 times per week Melida/Bahai: None Do you feel safe at home: Yes Do you feel safe in your relationship?: Yes Exam Const General: cooperative, comfortable and no acute distress Nutritional Appearance: average body habitus Orientation: alert, awake and oriented x3 HENMT Head: normal to inspection, normocephalic and atraumatic Mouth: oral mucosae normal Teeth and gingiva: abnormal tooth or associated gingiva and poor dentition Neck Neck: normal visual inspection Resp Effort & Inspection: normal respiratory effort Skin General skin exam: no rashes or lesions noted Neuro General: patient alert, patient awake and patient oriented x3 Course Vital Signs Vital signs: Vital Signs Temperature 36.4 C L 03/06/23 17:40 Pulse 74 03/06/23 17:40 Respiratory Rate 18 03/06/23 17:40 Blood Pressure 174/96 H 03/06/23 17:40 Pulse Oximetry 99 03/06/23 17:40 Temperature 36.4 C L 03/06/23 17:40 Temperature Source Temporal Artery Scan 03/06/23 17:40 Pulse 74 03/06/23 17:40 Respiratory Rate 18 03/06/23 17:40 Blood Pressure 174/96 H 03/06/23 17:40 Blood Pressure Position Sitting 03/06/23 17:40 Pulse Oximetry 99 03/06/23 17:40 Oxygen Delivery Method Room Air 03/06/23 17:40 Oxygen Flow Rate 0 03/06/23 17:40
[2023-03-06 18:38] VITALS: BP 174/96; PULSE 74; RESP 18; TEMP 36.4; O2SAT 99
[2023-03-06] MEDS: Clindamycin 300 MG CAP PO (18:38)
== END 2023-03-06 18:46 | disposition home or self-care (01) ==
PROVIDERS: Emergency Provider Nurse Practitioner Acute Care
DX: K04.7 Periapical abscess without sinus (principal)
CPT/HCPCS: 99283; 99284

== ENCOUNTER 2023-04-06 08:01 | Emergency (ER) | payer MEDICAID, SELFPAY ==
[2023-04-06 08:04] VITALS: BP 145/89; PULSE 84; RESP 18; TEMP 36.4; O2SAT 99
[2023-04-06 08:06] VITALS: BP 145/89; PULSE 84; RESP 18; TEMP 36.4; O2SAT 99
--- NOTE | 2023-04-06 08:13 | ED.GENADUL_ITS ---
HPI General Mode of arrival: ambulatory . Date/Time Provider Initiated Documentation: 04/06/23 08:06 . Limitations to Documentation: no limitations . Information obtained by: patient, RN notes reviewed and old records reviewed . HPI Narrative: 37-year-old female presents to the ER with a chief complaint of left breast infection. Patient reports that yesterday she noticed a small hidradenitis lesion to the medial aspect of her left breast which she popped. She then reports that it began petechiae like lesions now excoriations, with surrounding induration and tenderness with palpation. She does have some left axillary tenderness with palpation as well. She did take ibuprofen at 5 AM this morning prior to arrival. She does have a history of MRSA hydradenitis suppurativa, endometriosis hepatomegaly but vitamin D deficiency anemia hepatic steatosis. Surgical history includes hysterectomy and cholecystectomy. On exam she does have what appears like excoriations petechiae induration as noted above. No other associated symptoms or complaints. Related Data Home Medications Medication Instructions Recorded Confirmed ibuprofen 800 mg tablet 800 mg PO Q8H PRN pain #30 tabs 02/27/20 02/14/23 lidocaine 5 % topical ointment 1 applic topical BID PRN pain #50 01/13/22 02/14/23 grams Saccharomyces boulardii 250 mg 250 mg PO BID #14 caps 05/01/22 02/14/23 capsule (Florastor) sertraline 50 mg tablet 50 mg PO HS #90 tabs 05/04/22 02/14/23 trazodone 100 mg tablet 100 mg PO HS #90 tabs 05/04/22 02/14/23 clindamycin phosphate 1 % topical 1 applic topical DAILY #60 grams 07/20/22 02/14/23 gel, once daily triamcinolone acetonide 0.1 % 1 applic topical BID #15 grams 11/25/22 02/14/23 topical cream ondansetron 4 mg disintegrating 4 mg PO Q6H PRN nausea and 12/07/22 02/14/23 tablet vomiting #30 tabs clindamycin HCl 150 mg capsule 300 mg (2 x 150 mg) PO TID #42 caps 03/06/23 sulfamethoxazole 800 1 tab PO BID 7 days #14 tabs 04/06/23 mg-trimethoprim 160 mg tablet (Bactrim DS) Previous Rx's Medication Instructions Recorded ibuprofen 800 mg tablet 800 mg PO Q8H PRN pain #30 tabs 02/27/20 lidocaine 5 % topical ointment 1 applic topical BID PRN pain #50 01/13/22 grams Saccharomyces boulardii 250 mg 250 mg PO BID #14 caps 05/01/22 capsule (Florastor) sertraline 50 mg tablet 50 mg PO HS #90 tabs 05/04/22 trazodone 100 mg tablet 100 mg PO HS #90 tabs 05/04/22 clindamycin phosphate 1 % topical 1 applic topical DAILY #60 grams 07/20/22 gel, once daily triamcinolone acetonide 0.1 % 1 applic topical BID #15 grams 11/25/22 topical cream ondansetron 4 mg disintegrating 4 mg PO Q6H PRN nausea and 12/07/22 tablet vomiting #30 tabs clindamycin HCl 150 mg capsule 300 mg (2 x 150 mg) PO TID #42 caps 03/06/23 sulfamethoxazole 800 1 tab PO BID 7 days #14 tabs 04/06/23 mg-trimethoprim 160 mg tablet (Bactrim DS) Allergies Allergy/AdvReac Type Severity Reaction Status Date / Time cyclobenzaprine Allergy Intermediate Hives Unverified 02/14/23 11:44 [From Flexeril] cephalexin [Cephalexin] AdvReac Severe Abdominal Verified 02/14/23 11:44 Cramps vancomycin AdvReac Severe diarrhea, Verified 02/14/23 11:44 redness acetaminophen AdvReac Intermediate Other (See Verified 02/14/23 11:44 Comment) Cephalosporins AdvReac Intermediate Diarrhea Verified 02/14/23 11:44 codeine phosphate AdvReac Intermediate Vomiting Verified 02/14/23 11:44 [From Tylenol-Codeine #3] ketorolac [From Toradol] AdvReac Intermediate Nausea Verified 02/14/23 11:44 silver AdvReac Intermediate Skin Rash Verified 02/14/23 11:44 [From Tegaderm AG Mesh] tramadol AdvReac Intermediate Diarrhea Verified 02/14/23 11:44 General Stated Complaint: Cellulitis HALINA: 3 Review of Systems All systems reviewed & are unremarkable except as noted in HPI and below Integumentary/Breasts Skin/Breast: Reports as per HPI, Reports breast skin changes, Reports breast pain, Reports lesions, Reports new lesions, Reports erythema, Reports rash, Reports skin pain, Reports skin ulcer and Reports sores Exam Const General: cooperative, healthy appearing, well developed and well groomed Nutritional Appearance: average body habitus Orientation: alert, awake and oriented x3 Chest Chest: tenderness other (left breast) and rash Breast inspection: abnormal inspection of the breast left erythema and normal nipple Breast palpation: no axillary lymphadenopathy Other: Multiple excoriation surrounding induration Chest/axillae images: 2 1. Approximate 7 x 5 cm area of excoriations, with intermittent petechiae. No obvious boil mass abscess or draining lesion. There is some surrounding redness and induration however it does appear superficial and traumatic versus infective. However patient denies any injury. Resp Effort & Inspection: normal respiratory effort, able to speak in complete sentences, no audible wheezes, no cough, no grunting and not labored Auscultation: clear to auscultation bilaterally Cardio Rate: regular rate Rhythm: regular rhythm Heart Sounds: S1 normal and S2 normal GI Inspection: normal to inspection Palpation: soft Auscultation: normal bowel sounds Rectal Exam - female: deferred Skin Trauma: abrasion (left breast rash/denies injury) Course Vital Signs Vital signs: Vital Signs Temperature 36.4 C 04/06/23 08:04 Pulse 84 04/06/23 08:04 Respiratory Rate 18 04/06/23 08:04 Blood Pressure 145/89 H 04/06/23 08:04 Pulse Oximetry 99 04/06/23 08:04 Temperature 36.4 C 04/06/23 08:06 Pulse 84 04/06/23 08:06 Respiratory Rate 18 04/06/23 08:06 Respiratory Effort Normal 04/06/23 08:05 Blood Pressure 145/89 H 04/06/23 08:06 Pulse Oximetry 99 04/06/23 08:06 Oxygen Delivery Method Room Air 04/06/23 08:06 Oxygen Flow Rate 0 04/06/23 08:06 Pain Level 9 04/06/23 08:06 Medical Decision Making 37-year-old female presents to the ER with a chief complaint of left breast infection. Patient reports that yesterday she noticed a small hidradenitis lesion to the medial aspect of her left breast which she popped. She then reports that it began petechiae like lesions now excoriations, with surrounding induration and tenderness with palpation. She does have some left axillary tenderness with palpation as well. She did take ibuprofen at 5 AM this morning prior to arrival. She does have a history of MRSA hydradenitis suppurativa, endometriosis hepatomegaly but vitamin D deficiency anemia hepatic steatosis. Surgical history includes hysterectomy and cholecystectomy. On exam she does have what appears like excoriations petechiae induration as noted above. No other associated symptoms or complaints. Dr. aPrikh at bedside for POCUS breast exam to rule out abscess, no fluid collection seen no enlarged lymph nodes. On physical exam it does appear to be traumatic and superficial at this time. There are excoriations with petechiae however patient denies any injury. Will place patient on Bactrim x 5 days and instruct on home care to keep covered we will discuss strict return instructions and follow-up care to return if any worsening swelling, redness or worsening drainage. No leukocytosis, lactate slightly elevated at 1.7, glucose 132 procalcitonin less than 0.1 C-reactive protein within normal limits. Second set of blood cultures not needed at this point. According to clinical presentation cellulitis is less likely, however due to patients Pmhx will treat empirically for cellulits. Differential diagnosis includes wound to superficial traumatic wound, early cellulitis, abscess which was ruled out with ultrasound POCUS exam. An additional topical lidocaine applied prior to discharge. Will send patient home with 1 2% Glydo Lidocaine with instructions to use once daily. This text was generated using Fusion-ioation system, please disregard any oddities of phrase or misspellings. Medical Records Medical records reviewed: Yes I reviewed the patient's medical records. Lab Data Lab results reviewed: Yes I reviewed the patient's lab results. Labs: 04/06/23 08:15 Blood Blood Culture - Pending 04/06/23 08:11 Blood Blood Culture - Pending Laboratory Tests Range/Units 04/06/23 08:15 WBC (4.4-10.8) 10^3/uL 7.38 RBC (3.93-5.22) 10^6/uL 4.98 Hgb (11.2-15.7) g/dL 16.4 H Hct (36.0-46.0) % 48.1 H MCV (80-95) fL 97 H MCH (27.0-33.0) pg 32.9 MCHC (32.0-36.0) % 34.1 RDW (11.7-14.6) % 13.0 Plt Count (130-400) 10^3/uL 220 MPV (8.0-11.0) fL 9.6 Immature Gran % 0.4 Neutrophils % 62.4 Lymphocytes % 28.2 Monocytes % 6.1 Eosinophils % 2.2 Basophils % 0.7 Nucleated RBC % (0.0-0.3) % 0.0 Absolute Neutrophils (1.2-6.7) 10^3/uL 4.61 Absolute Lymphocytes (1.2-3.4) 10^3/uL 2.08 Absolute Monocytes (0.1-0.8) 10^3/uL 0.45 Absolute Eosinophils (0.0-0.7) 10^3/uL 0.16 Absolute Basophils (0.0-0.2) 10^3/uL 0.05 VBG Lactate (0.6-1.4) mmol/L 1.7 H Sodium (136-145) mmol/L 140 Potassium (3.5-5.1) mmol/L 4.2 Chloride (98-107) mmol/L 102 Carbon Dioxide (21.0-32.0) mmol/L 27.2 Anion Gap (3-11) mmol/L 10.8 BUN (7-18) mg/dL 9 Creatinine (0.55-1.02) mg/dL 0.7 Est GFR (CKD-EPI 2020) (mL/min/1.73m2) 114.88 Glucose (74-106) mg/dL 132 H Calcium (8.5-10.1) mg/dL 9.4 Magnesium (1.8-2.4) mg/dL 2.3 Total Bilirubin (0.2-1.0) mg/dL 0.4 AST (15-37) U/L 16 ALT (14-59) U/L 19 Alkaline Phosphatase (46-116) U/L 101 C-Reactive Protein (0.0-0.3) mg/dL 0.22 Total Protein (6.4-8.2) g/dL 8.4 H Albumin (3.4-5.0) g/dL 4.4 Procalcitonin ng/mL < 0.1 Quality:SDOH Health Related Social Needs: 2 No Data to Display PFSH All Active Problems (Updated 04/06/23 @ 09:10 by Marina Moe NP) Breast pain, left (Acute) Unspecified open wound of left breast, initial encounter (Acute) Diarrhea (Acute) Palpable mass of soft tissue of knee (Acute) Low HDL (under 40) (Acute) Obesity without serious comorbidity (Acute) Hidradenitis suppurativa (Acute) bilateral, [place] [facility] [place] P[place] Humira start. [facility] [place]. Bilateral ovarian cysts (Chronic) seen on multiple imaging studies Loin pain hematuria syndrome (Acute) never officially diagnosed by maintainer central office Lymphedema of left lower extremity (Chronic) Anxiety (Acute 02/11/13) panic Medical History History of tobacco abuse quit 01/2022 History of renal calculi Endometriosis, unspecified LAPROSCOPY 2009 hysterect 2019 on OC for control Hepatomegaly Vitamin D deficiency Anemia Hepatic steatosis Surgical History S/P laparoscopy (2009) stage 1 endometriosis S/P laparoscopic cholecystectomy (2016) S/P laparoscopic assisted vaginal hysterectomy (LAVH) ovaries intact Hx of hand surgery L hand, pt. reports nerves were fixed Status post endovenous radiofrequency ablation (RFA) of saphenous vein for venous insufficiency 09/06/2018 wisdom teeth extraction Extracorporeal shock wave lithotripsy EGD - MAC Family History Mother Diabetes Heart disease Hyperlipidemia Father Colon cancer Heart disease Hyperlipidemia Sister Hyperlipidemia Grandfather Diabetes Grandfather Diabetes Hyperlipidemia Asthma Grandmother Diabetes Personal history of malignant neoplasm Breast Heart disease Hyperlipidemia Grandmother No problems noted. 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 Pets and animals: Yes Pets and animals: dog(s) Sexually active: Yes Do you think of yourself as: straight/heterosexual Current gender identity: female What is your relationship status?: never How often do you talk on the phone with friends or family?: three or more times per week How often do you get together with friends or relatives?: once per week How often do you attend islam or methodist services?: 1-3 times per year Do you belong to any clubs or organized social groups?: no Panel score (0-1 are the most socially isolated patients): 1 What type of physical activity do you participate in: other Duration: > 90 minutes/day Frequency: 5-6 times per week Melida/Hoahaoism: None Do you feel safe at home: Yes Do you feel safe in your relationship?: Yes Discharge Plan Disposition Patient Disposition: Home Condition: Stable Discharge Details Clinical Impression: Unspecified open wound of left breast, initial encounter, Breast pain, left Primary Care Provider: Unknown,Unknown ED Provider: Marina Moe Meds and New Rx's Prescriptions: New sulfamethoxazole-trimethoprim [Bactrim DS] 800-160 mg tablet 1 tab PO BID 7 Days Qty: 14 0RF No Action sertraline 50 mg tablet 50 mg PO HS Qty: 90 3RF trazodone 100 mg tablet 100 mg PO HS Qty: 90 4RF ondansetron 4 mg tablet,disintegrating 4 mg PO Q6H PRN (Reason: nausea and vomiting) Qty: 30 0RF triamcinolone acetonide 0.1 % cream 1 applic topical BID Qty: 15 0RF lidocaine 5 % ointment 1 applic topical BID PRN (Reason: pain) Qty: 50 0RF clindamycin phosphate 1 % gel, once daily 1 applic topical DAILY Qty: 60 3RF clindamycin HCl 150 mg capsule 300 mg PO TID Qty: 42 0RF ibuprofen 800 mg tablet 800 mg PO Q8H PRN (Reason: pain) Qty: 30 1RF Saccharomyces boulardii [Florastor] 250 mg capsule 250 mg PO BID Qty: 14 0RF Discharge Instructions Instructions: Acute Wound Care (ED) Additional Instructions: No evidence of deeper infection such as abscess or fluid collection. At this time it does appear to be superficial. Please keep clean and dry. Wash hands before or after touching the area. Please keep a nonadherent dressing to the area as needed. Take the antibiotic as directed with yogurt or probiotic daily. Follow up with primary care provider in 3-5 days. Return to ED sooner if any worsening redness swelling red streaks traveling up into your armpit, fever or concerns. Increase oral fluids. Please take Tylenol or Ibuprofen with food every 4-6 hours as needed for pain and swelling. Referrals: [facility] [Provider Group] - 3 days
[2023-04-06 08:22] LABS: Lactate 1.7 mmol/L (0.6-1.4)
[2023-04-06] MEDS: CLINDAMYCIN 600 MG/50 ML BAG 100 MG IVPB (08:23)
[2023-04-06] MEDS: fentaNYL 100 MCG/2 ML VIAL 25 MCG IVP (08:23)
[2023-04-06] MEDS: Lidocaine 2% Jelly 6 ML SYR TP ×2 (08:23→09:21)
[2023-04-06 08:24] LABS: Abs Immature Grans 0.03 10^3/uL (0.0-0.06); Absolute Basophil Count 0.05 10^3/uL (0.0-0.2); Absolute Eosinophil Count 0.16 10^3/uL (0.0-0.7); Absolute Lymphocyte Count 2.08 10^3/uL (1.2-3.4); Absolute Monocyte Count 0.45 10^3/uL (0.1-0.8); Absolute Neutrophil Count 4.61 10^3/uL (1.2-6.7); Basophils % 0.7; Eosinophils % 2.2; HCT 48.1 % (36.0-46.0); HGB 16.4 g/dL (11.2-15.7); Immature Grans % 0.4; Lymphocytes % 28.2; MCH 32.9 pg (27.0-33.0); MCHC 34.1 % (32.0-36.0); MCV 97 fL (80-95); MPV 9.6 fL (8.0-11.0); Monocytes % 6.1; Neutrophils % 62.4; Platelet Count 220 10^3/uL (130-400); RBC 4.98 10^6/uL (3.93-5.22); RDW-SD 46.2 fL; WBC 7.38 10^3/uL (4.4-10.8)
[2023-04-06 08:40] LABS: ALT 19 U/L (14-59); AST 16 U/L (15-37); Albumin 4.4 g/dL (3.4-5.0); Alkaline Phosphatase 101 U/L (46-116); Anion Gap 10.8 mmol/L (3-11); BUN 9 mg/dL (7-18); Bilirubin, Total 0.4 mg/dL (0.2-1.0); C-Reactive Protein 0.22 mg/dL (0.0-0.3); CO2 27.2 mmol/L (21.0-32.0); CREATININE 0.7 mg/dL (0.55-1.02); Calcium 9.4 mg/dL (8.5-10.1); Chloride 102 mmol/L (98-107); Estimated GFR 114.88 (mL/min/1.73m2); Glucose 132 mg/dL (74-106); Magnesium 2.3 mg/dL (1.8-2.4); Potassium 4.2 mmol/L (3.5-5.1); Sodium 140 mmol/L (136-145); Total Protein 8.4 g/dL (6.4-8.2)
[2023-04-06 08:57] LABS: Procalcitonin < 0.1 ng/mL
[2023-04-06] MEDS: Chlorhexidine 4% 120 ML BTL (09:01)
[2023-04-06] MEDS: Normal Saline 1,000 ML 1000 ML IV (09:01)
--- NOTE | 2023-04-06 09:19 | W.ED.PROC ---
Date of service: 04/06/23 Time of Service: 09:20 Medical Decision Making Performed a [id number] ultrasound Examination of the left breast the patient asked by REESE Moe Quality:SDOH Health Related Social Needs: No Data to Display POCUS Exam (ED) Limited Soft Tissue Exam DATE OF EXAM: 04/06/23 TIME OF EXAM: 09:20 PROVIDER THAT PERFORMED THE STUDY: Eddi Parikh IS THIS A REPEAT EXAM DURING THIS ENCOUNTER: No LOCATION OF EXAM: Breast/left REASON FOR EXAM: Pain, Rash and Redness VISUALIZED STRUCTURES: Left upper quadrant, Right upper quadrant, Left lower quadrant and Right lower quadrant PERTINENT FINDINGS/IMPRESSION: Other (No abscess or cellulitis visualized in the breast tissue) impression: Normal breast tissue visualized no abscess no cobblestoning no fluid collection no cellulitis and no hematoma . Exam Complete DIFFERENTIAL DIAGNOSES: Breast abscess breast cellulitis or hematoma
== END 2023-04-06 09:23 | disposition home or self-care (01) ==
PROVIDERS: Emergency Provider Registered Nurse Emergency
DX: S21.002A Unspecified open wound of left breast, initial encounter (principal); Z86.14 Personal history of Methicillin resistant Staphylococcus aureus infection; Z87.891 Personal history of nicotine dependence; X58.XXXA Exposure to other specified factors, initial encounter
CPT/HCPCS: 76642; 80053; 84145; 87040; 96361; 96365; 96375; 99284; 83605; 83735; 85025; 86140; J0737; J3010

== ENCOUNTER 2023-04-13 11:48 | Observation (INO) | payer MEDICAID, SELFPAY ==
[2023-04-13] VITALS (15 sets, daily range): BP systolic 108–143; BP diastolic 62–95; PULSE 61–80; RESP 12–18; TEMP 35.8–36.7; O2SAT 95–100; BMI 35.2
--- NOTE | 2023-04-13 13:30 | DI.CT_ITS ---
Exam(s) CT ABDOMEN PELVIS W EXAM: CT ABDOMEN PELVIS W CLINICAL HISTORY: RLQ pain TECHNIQUE: Imaging Protocol: Axial computed tomography images with coronal and sagittal reformatted images were created and reviewed CONTRAST MATERIAL: Intravenous: Omnipaque 350 Contrast volume:100 mL Oral: No COMPARISON: CT CT ABDOMEN PELVIS W from 12/26/2022 FINDINGS: ABDOMEN: Lung Bases: Normal where visualized. Liver: Decreased attenuation of the liver suggesting fatty infiltration. Mild hepatomegaly. No zohra urable mass. Portal, Superior Mesenteric, and Splenic Veins: Unremarkable. Gallbladder and Biliary Tract: Status post cholecystectomy. The common duct is within normal limits following cholecystectomy. Pancreas: Normal density, no abnormal calcifications or inflammatory process. Spleen: Normal. Adrenals: No masses seen. Kidneys: Normal size, contour and axis. Right nephrolithiasis. No obstructive uropathy. No masses s een. Abdominal Aorta: Abdominal portion non-dilated. Bowel: There is enhancement and thickening of the wall of the appendix which measures 1.[address] The findings are consistent with appendicitis. There is mild thickening of a loop of sigmoid c olon adjacent to the inflamed appendix. Appendix is unremarkable. There are few diverticula in the c olon but no evidence of acute diverticulitis. There is no evidence of bowel obstruction. No other b owel wall thickening is seen. Peritoneal Cavity: No ascites, collection or mesenteric inflammatory response. No free air. Lymph Nodes: Mildly enlarged reactive lymph nodes are seen in the right lower quadrant. Bones: Within normal limits for the patient's age. Soft Tissues: Unremarkable. PELVIS: Bladder: Urinary bladder is incompletely distended limiting evaluation. Reproductive Organs: Status post hysterectomy. Lymph Nodes: Within normal limits. Bones: Within normal limits for the patient's age. IMPRESSION: 1. Acute appendicitis. No abscess or free air. No appendicoliths. 2. Mild wall thickening of adjacent sigmoid colon likely reflecting a mild colitis. RADIATION DOSE DELIVERED: 797.2mGy.cm Total DLP DATA REPOSITORY: All CT scans at this facility are submitted to the National Radiology Data Registry (NRDR) Dose Index Registry (DIR) with the [employer] (ACR). RADIATION OPTIMIZATION: All CT scans at this facility use at least one of these dose optimization te chniques: automated exposure control; mA and/or kV adjustment per patient size (includes targeted exa ms where dose is matched to clinical indication); or iterative reconstruction.
[2023-04-13] MEDS: fentaNYL 100 MCG/2 ML VIAL 75 MCG IVP (13:48)
[2023-04-13] MEDS: Ondansetron 4 MG/2 ML VIAL IVP (13:48)
[2023-04-13 13:53] LABS: Abs Immature Grans 0.03 10^3/uL (0.0-0.06); Absolute Basophil Count 0.06 10^3/uL (0.0-0.2); Absolute Eosinophil Count 0.13 10^3/uL (0.0-0.7); Absolute Lymphocyte Count 2.27 10^3/uL (1.2-3.4); Absolute Monocyte Count 0.61 10^3/uL (0.1-0.8); Absolute Neutrophil Count 6.67 10^3/uL (1.2-6.7); Basophils % 0.6; Eosinophils % 1.3; HGB 14.8 g/dL (11.2-15.7); Immature Grans % 0.3; Lymphocytes % 23.2; MCH 32.9 pg (27.0-33.0); MCHC 34.4 % (32.0-36.0); MCV 96 fL (80-95); MPV 9.9 fL (8.0-11.0); Monocytes % 6.2; Neutrophils % 68.4; Platelet Count 226 10^3/uL (130-400); RDW 12.8 % (11.7-14.6); WBC 9.77 10^3/uL (4.4-10.8)
[2023-04-13 14:07] LABS: ALT 22 U/L (14-59); AST 11 U/L (15-37); Albumin 3.9 g/dL (3.4-5.0); Alkaline Phosphatase 100 U/L (46-116); Anion Gap 8.3 mmol/L (3-11); BUN 8 mg/dL (7-18); Bilirubin, Total 0.3 mg/dL (0.2-1.0); CO2 26.7 mmol/L (21.0-32.0); CREATININE 0.5 mg/dL (0.55-1.02); Calcium 8.5 mg/dL (8.5-10.1); Chloride 104 mmol/L (98-107); Estimated GFR 124.58 (mL/min/1.73m2); Glucose 93 mg/dL (74-106); Lipase 29 U/L (16-77); Sodium 139 mmol/L (136-145); Total Protein 7.6 g/dL (6.4-8.2)
[2023-04-13 14:22] LABS: Bilirubin Negative (Negative); Blood Trace-intact (Negative); Clarity Clear (Clear); Glucose Negative (Negative); Ketones Negative (Negative); Leukocyte Esterase Negative (Negative); Nitrite Negative (Negative); Specific Gravity 1.025 (1.005-1.025); Urobilinogen 0.2 mg/dL (Up to 0.2); pH 5.5 (5-8)
[2023-04-13 14:30] LABS: Bacteria Negative HPF (Negative); C & S Indicated? No; Casts Negative LPF (Negative); Crystals Moderate Uric Acid HPF (Negative); Epithelial Cells Few HPF (Negative); Mucus Negative (Negative); RBC 0-2 HPF (0-2); WBC Negative HPF (0-5)
[2023-04-13] MEDS: Normal Saline - Diluent 50 ML VIAL IJ (14:36)
[2023-04-13] MEDS: Omnipaque 350 MG/ML 500 ML BTL-Imaging package IJ (14:38)
[2023-04-13] MEDS: fentaNYL 100 MCG/2 ML VIAL IVP (14:45)
[2023-04-13] MEDS: PIPERACILLIN/TAZO 3.375 GM in Normal Saline 50 ML IVPB (15:26)
--- NOTE | 2023-04-13 15:29 | ED.GENADUL_ITS ---
HPI General Date/Time Provider Initiated Documentation: 04/13/23 12:06 . HPI Narrative: This 37-year-old female known to this facility with history of hidradenitis, cellulitis, depression, anxiety presents with report of right lower quadrant abdominal pain which started at 5:00 this morning and woke patient from sleep. States that pain is worsened with walking. Denies history of similar pain in the past. Denies any vomiting but has had nausea. Is currently taking clindamycin for an infection on her left breast which is exhibiting improvement per patient. Denies any diarrhea. Denies fever. Related Data Home Medications Medication Instructions Recorded Confirmed ibuprofen 800 mg tablet 800 mg PO Q8H PRN pain #30 tabs 02/27/20 04/13/23 lidocaine 5 % topical ointment 1 applic topical BID PRN pain #50 01/13/22 04/13/23 grams Saccharomyces boulardii 250 mg 250 mg PO BID #14 caps 05/01/22 04/13/23 capsule (Florastor) sertraline 50 mg tablet 50 mg PO HS #90 tabs 05/04/22 04/13/23 trazodone 100 mg tablet 100 mg PO HS #90 tabs 05/04/22 04/13/23 ondansetron 4 mg disintegrating 4 mg PO Q6H PRN nausea and 12/07/22 04/13/23 tablet vomiting #30 tabs clindamycin phosphate 1 % topical 1 applic topical DAILY PRN 04/13/23 04/13/23 gel, once daily triamcinolone acetonide 0.1 % 1 applic topical BID PRN 04/13/23 04/13/23 topical cream oxycodone-acetaminophen 5 mg-325 1 tab PO Q8H PRN pain #9 tabs 04/14/23 mg tablet (Percocet) Previous Rx's Medication Instructions Recorded ibuprofen 800 mg tablet 800 mg PO Q8H PRN pain #30 tabs 02/27/20 lidocaine 5 % topical ointment 1 applic topical BID PRN pain #50 01/13/22 grams Saccharomyces boulardii 250 mg 250 mg PO BID #14 caps 05/01/22 capsule (Florastor) sertraline 50 mg tablet 50 mg PO HS #90 tabs 05/04/22 trazodone 100 mg tablet 100 mg PO HS #90 tabs 05/04/22 ondansetron 4 mg disintegrating 4 mg PO Q6H PRN nausea and 12/07/22 tablet vomiting #30 tabs oxycodone-acetaminophen 5 mg-325 1 tab PO Q8H PRN pain #9 tabs 04/14/23 mg tablet (Percocet) Allergies Allergy/AdvReac Type Severity Reaction Status Date / Time cyclobenzaprine Allergy Intermediate Hives Unverified 04/13/23 13:59 [From Flexeril] cephalexin [Cephalexin] AdvReac Severe Abdominal Verified 04/13/23 13:59 Cramps sugammadex AdvReac Severe Other (See Verified 04/13/23 17:42 Comment) vancomycin AdvReac Severe diarrhea, Verified 04/13/23 13:59 redness acetaminophen AdvReac Intermediate Other (See Verified 04/13/23 13:59 Comment) Cephalosporins AdvReac Intermediate Diarrhea Verified 04/13/23 13:59 codeine phosphate AdvReac Intermediate Vomiting Verified 04/13/23 13:59 [From Tylenol-Codeine #3] ketorolac [From Toradol] AdvReac Intermediate Nausea Verified 04/13/23 13:59 silver AdvReac Intermediate Skin Rash Verified 04/13/23 13:59 [From Tegaderm AG Mesh] tramadol AdvReac Intermediate Diarrhea Verified 04/13/23 13:59 General Stated Complaint: Abd Prob HALINA: 3 Course Vital Signs Vital signs: Vital Signs Temperature 36.1 C L 04/13/23 11:50 Pulse 77 04/13/23 11:50 Respiratory Rate 18 04/13/23 11:50 Blood Pressure 143/95 H 04/13/23 11:50 Pulse Oximetry 100 04/13/23 11:50 Temperature 36.1 C L 04/13/23 13:50 Temperature Source Temporal Artery Scan 04/13/23 13:50 Pulse 77 04/13/23 13:50 Respiratory Rate 18 04/13/23 13:50 Respiratory Effort Normal, Non-Labored 04/13/23 13:50 Blood Pressure 143/95 H 04/13/23 13:50 Blood Pressure Position Sitting 04/13/23 13:50 Pulse Oximetry 100 04/13/23 13:50 Oxygen Delivery Method Room Air 04/13/23 13:50 Oxygen Flow Rate 0 04/13/23 13:50 Pain Level 10 04/13/23 14:45 Lab/Test Results Lab/Test Results: Laboratory Tests Range/Units 04/13/23 04/13/23 13:46 14:09 WBC (4.4-10.8) 10^3/uL 9.77 RBC (3.93-5.22) 10^6/uL 4.50 Hgb (11.2-15.7) g/dL 14.8 Hct (36.0-46.0) % 43.0 MCV (80-95) fL 96 H MCH (27.0-33.0) pg 32.9 MCHC (32.0-36.0) % 34.4 RDW (11.7-14.6) % 12.8 Plt Count (130-400) 10^3/uL 226 MPV (8.0-11.0) fL 9.9 Immature Gran % 0.3 Neutrophils % 68.4 Lymphocytes % 23.2 Monocytes % 6.2 Eosinophils % 1.3 Basophils % 0.6 Nucleated RBC % (0.0-0.3) % 0.0 Absolute Neutrophils (1.2-6.7) 10^3/uL 6.67 Absolute Lymphocytes (1.2-3.4) 10^3/uL 2.27 Absolute Monocytes (0.1-0.8) 10^3/uL 0.61 Absolute Eosinophils (0.0-0.7) 10^3/uL 0.13 Absolute Basophils (0.0-0.2) 10^3/uL 0.06 Sodium (136-145) mmol/L 139 Potassium (3.5-5.1) mmol/L 4.0 Chloride (98-107) mmol/L 104 Carbon Dioxide (21.0-32.0) mmol/L 26.7 Anion Gap (3-11) mmol/L 8.3 BUN (7-18) mg/dL 8 Creatinine (0.55-1.02) mg/dL 0.5 L Est GFR (CKD-EPI 2020) (mL/min/1.73m2) 124.58 Glucose (74-106) mg/dL 93 Calcium (8.5-10.1) mg/dL 8.5 Total Bilirubin (0.2-1.0) mg/dL 0.3 AST (15-37) U/L 11 L ALT (14-59) U/L 22 Alkaline Phosphatase (46-116) U/L 100 Total Protein (6.4-8.2) g/dL 7.6 Albumin (3.4-5.0) g/dL 3.9 Lipase (16-77) U/L 29 Urine Color (Yellow) Yellow Urine Clarity (Clear) Clear Urine pH (5-8) 5.5 Ur Specific [place] (1.005-1.025) 1.025 Urine Protein (Negative) mg/dL Negative Urine Ketones (Negative) mg/dL Negative Urine Blood (Negative) Trace-intact H Urine Nitrite (Negative) Negative Urine Bilirubin (Negative) Negative Urine Urobilinogen (Up to 0.2) mg/dL 0.2 Ur Leukocyte Esterase (Negative) Negative Urine RBC (0-2) HPF 0-2 Urine WBC (0-5) HPF Negative Ur Epithelial Cells (Negative) HPF Few Urine Crystals (Negative) HPF Moderate Uric Acid Urine Bacteria (Negative) HPF Negative Urine Casts (Negative) LPF Negative Urine Mucus (Negative) Negative Ur Culture Indicated? No Urine Glucose (Negative) mg/dL Negative Medical Decision Making This 37-year-old female presents to the emergency department for right lower quadrant pain Pain started at 5:00 this morning woke patient from sleep, patient has rebound guarding to the affected area, no leukocytosis, CBC and CMP were ordered for additional assessment Urinalysis no acute abnormality, hysterectomy, no chance of Zosyn ordered for antibiotics, given 175 mcg of fentanyl on 2 separate occasions, 75 and 100 respectively Given 1 L of NS Given 4 mg of Zofran IV Acute appendicitis reviewed with radiology and Dr Gonzalez, surgery: will take patient to the operating room zosyn administered Quality:SDOH Health Related Social Needs: Health related social needs details no reported proble ms. [place] All Active Problems (Updated 04/15/23 @ 00:01 by ZACKARY KWONG) Breast pain, left (Acute) Unspecified open wound of left breast, initial encounter (Acute) Diarrhea (Acute) Palpable mass of soft tissue of knee (Acute) Low HDL (under 40) (Acute) Obesity without serious comorbidity (Acute) Hidradenitis suppurativa (Acute) bilateral, managed at [facility] [place] derm. Pending Humira start. [facility] [place] did pain clinic referral. Bilateral ovarian cysts (Chronic) seen on multiple imaging studies Loin pain hematuria syndrome (Acute) never officially diagnosed by pie filler Lymphedema of left lower extremity (Chronic) Anxiety (Acute 02/11/13) panic Medical History (Updated 04/15/23 @ 00:01 by ZACKARY KWONG) Anesthesia complication Patient with severe bradycardia with sugammadex reversal requiring compressions History of tobacco abuse quit 01/2022 History of renal calculi Endometriosis, unspecified LAPROSCOPY 2009 hysterect 2019 on OC for control Hepatomegaly Vitamin D deficiency Anemia Hepatic steatosis Surgical History (Updated 04/15/23 @ 00:01 by ZACKARY KWONG) S/P laparoscopic appendectomy S/P laparoscopy (2009) stage 1 endometriosis S/P laparoscopic assisted vaginal hysterectomy (LAVH) ovaries intact Hx of hand surgery L hand, pt. reports nerves were fixed Status post endovenous radiofrequency ablation (RFA) of saphenous vein for venous insufficiency 09/06/2018 wisdom teeth extraction Extracorporeal shock wave lithotripsy EGD - MAC Family History Mother Diabetes Heart disease Hyperlipidemia Father Colon cancer Heart disease Hyperlipidemia Sister Hyperlipidemia Grandfather Diabetes Grandfather Diabetes Hyperlipidemia Asthma Grandmother Diabetes Personal history of malignant neoplasm Breast Heart disease Hyperlipidemia Grandmother No problems noted. 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 Pets and animals: Yes Pets and animals: dog(s) Sexually active: Yes Do you think of yourself as: straight/heterosexual Current gender identity: female What is your relationship status?: never How often do you talk on the phone with friends or family?: three or more times per week How often do you get together with friends or relatives?: once per week How often do you attend christian or mosque services?: 1-3 times per year Do you belong to any clubs or organized social groups?: no Panel score (0-1 are the most socially isolated patients): 1 What type of physical activity do you participate in: other Duration: > 90 minutes/day Frequency: 5-6 times per week Melida/Mormon: None Do you feel safe at home: Yes Do you feel safe in your relationship?: Yes Discharge Plan Disposition Condition: Good Discharge Details Chief Complaint: Abd Prob Admit Date/Time: 04/13/23 17:47 Admit Provider: Herbert Gonzalez Attending Provider: Herbert Gonzalez Primary Care Provider: Unknown,Unknown ED Provider: Lesvia German Discharge Instructions Activity:: Activity as Tolerated Equipment/Supplies:: No Equipment Needed Diet:: Normal Diet Discharge Orders Discharge Orders: Discharge Order (Routine); Ordered 04/14/23 Ordered By: Janki Antoine Discharge Data Discharge Date/Time-TO BE ENTERED AT DEPARTURE: 04/13/23 16:10
--- NOTE | 2023-04-13 15:38 | W.PREOPHP ---
History of Present Illness History of Present Illness Chief Complaint: abdominal pain Narrative: Rosa is 37 years old, she knows acute onset of abdominal pain, mostly on the right side down towards her right hip that started around 5 AM. She describes it as sharp and stabbing, it is associated with some mild nausea. She denies any subjective fevers. She came to the emergency department, and underwent a CT scan of the abdomen pelvis that demonstrated acute appendicitis. Past medical history significant for cholecystitis and endometriosis. She is undergone laparoscopic cholecystectomy and hysterectomy. Pertinent Surgical Information By the history and physical, this certainly seems to be consistent with acute appendicitis. Furthermore, the CT scan is very convincing. Although she has had some abdominal surgeries in the past, she seems to be a good candidate for laparoscopic appendectomy. We talked about the nature of the operation, as well as the risks and benefits. I think she has a good understanding of all this, and she is able to provide informed consent today. She is already getting some Zosyn, will make arrangements to proceed with appendectomy as soon as possible. Review of Systems Constitutional Constitutional: Denies body ache(s), Denies fever(s) and Reports poor appetite Eyes Eyes: Reports system reviewed and no additional complaints, except as documented ENT Ears, Nose, Mouth, and Throat: Reports system reviewed and no additional complaints, except as documented Cardiovascular Cardiovascular: Denies chest pain and Denies dyspnea Respiratory Respiratory: Denies chest congestion, Denies cough and Denies dyspnea Gastrointestinal Gastrointestinal: Reports abdominal pain, Denies change in bowel habits, Denies change in stool character, Reports nausea and Denies vomiting Genitourinary Genitourinary: Reports system reviewed and no additional complaints, except as documented Musculoskeletal Comments: Right hip pain Neurologic Neurologic: Reports system reviewed and no additional complaints, except as documented Hematologic/Lymphatic Hematologic/Lymphatic: Denies easy bleeding and Denies easy bruising PFSH All Active Problems (Updated 04/06/23 @ 09:10 by Marina Moe NP) Breast pain, left (Acute) Unspecified open wound of left breast, initial encounter (Acute) Diarrhea (Acute) Palpable mass of soft tissue of knee (Acute) Low HDL (under 40) (Acute) Obesity without serious comorbidity (Acute) Hidradenitis suppurativa (Acute) bilateral, [place] [facility] [place]. Pending Humira start. [facility]. Bilateral ovarian cysts (Chronic) seen on multiple imaging studies Loin pain hematuria syndrome (Acute) never officially diagnosed by evp and chief operating officer Lymphedema of left lower extremity (Chronic) Anxiety (Acute 02/11/13) panic Medical History History of tobacco abuse quit 01/2022 History of renal calculi Endometriosis, unspecified LAPROSCOPY 2009 hysterect 2019 on OC for control Hepatomegaly Vitamin D deficiency Anemia Hepatic steatosis Surgical History S/P laparoscopy (2009) stage 1 endometriosis S/P laparoscopic cholecystectomy (2016) S/P laparoscopic assisted vaginal hysterectomy (LAVH) ovaries intact Hx of hand surgery L hand, pt. reports nerves were fixed Status post endovenous radiofrequency ablation (RFA) of saphenous vein for venous insufficiency 09/06/2018 wisdom teeth extraction Extracorporeal shock wave lithotripsy EGD - MAC Family History Mother Diabetes Heart disease Hyperlipidemia Father Colon cancer Heart disease Hyperlipidemia Sister Hyperlipidemia Grandfather Diabetes Grandfather Diabetes Hyperlipidemia Asthma Grandmother Diabetes Personal history of malignant neoplasm Breast Heart disease Hyperlipidemia Grandmother No problems noted. 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 Pets and animals: Yes Pets and animals: dog(s) Sexually active: Yes Do you think of yourself as: straight/heterosexual Current gender identity: female What is your relationship status?: never How often do you talk on the phone with friends or family?: three or more times per week How often do you get together with friends or relatives?: once per week How often do you attend yazidi or confucianism services?: 1-3 times per year Do you belong to any clubs or organized social groups?: no Panel score (0-1 are the most socially isolated patients): 1 What type of physical activity do you participate in: other Duration: > 90 minutes/day Frequency: 5-6 times per week Melida/Scientologist: None Do you feel safe at home: Yes Do you feel safe in your relationship?: Yes Meds Allergies and Home Medications Allergies Allergy/AdvReac Type Severity Reaction Status Date / Time cyclobenzaprine Allergy Intermediate Hives Unverified 04/13/23 13:59 [From Flexeril] cephalexin [Cephalexin] AdvReac Severe Abdominal Verified 04/13/23 13:59 Cramps vancomycin AdvReac Severe diarrhea, Verified 04/13/23 13:59 redness acetaminophen AdvReac Intermediate Other (See Verified 04/13/23 13:59 Comment) Cephalosporins AdvReac Intermediate Diarrhea Verified 04/13/23 13:59 codeine phosphate AdvReac Intermediate Vomiting Verified 04/13/23 13:59 [From Tylenol-Codeine #3] ketorolac [From Toradol] AdvReac Intermediate Nausea Verified 04/13/23 13:59 silver AdvReac Intermediate Skin Rash Verified 04/13/23 13:59 [From Tegaderm AG Mesh] tramadol AdvReac Intermediate Diarrhea Verified 04/13/23 13:59 Home Medications Medication Instructions Recorded Confirmed Type ibuprofen 800 mg tablet 800 mg PO Q8H PRN pain #30 tabs 02/27/20 04/13/23 Rx lidocaine 5 % topical ointment 1 applic topical BID PRN pain #50 01/13/22 04/13/23 Rx grams Saccharomyces boulardii 250 mg 250 mg PO BID #14 caps 05/01/22 04/13/23 Rx capsule (Florastor) sertraline 50 mg tablet 50 mg PO HS #90 tabs 05/04/22 04/13/23 Rx trazodone 100 mg tablet 100 mg PO HS #90 tabs 05/04/22 04/13/23 Rx ondansetron 4 mg disintegrating 4 mg PO Q6H PRN nausea and 12/07/22 04/13/23 Rx tablet vomiting #30 tabs clindamycin phosphate 1 % topical 1 applic topical DAILY PRN 04/13/23 04/13/23 History gel, once daily triamcinolone acetonide 0.1 % 1 applic topical BID PRN 04/13/23 04/13/23 History topical cream Exam Const General: cooperative Orientation: alert, awake and oriented x3 Eyes General: appearance normal, both eyes and all related structures Neck Neck: normal visual inspection and full ROM Resp Effort & Inspection: normal respiratory effort, able to speak in complete sentences and no cough Auscultation: clear to auscultation bilaterally Cardio Rate: regular rate Rhythm: regular rhythm Heart Sounds: S1 normal and S2 normal GI Inspection: normal to inspection Palpation: soft Percussion: normal to percussion Results Labs 04/13/23 13:46 04/13/23 13:46 Labs: Laboratory Results - last 24 hr 04/13/23 04/13/23 13:46 14:09 WBC 9.77 RBC 4.50 Hgb 14.8 Hct 43.0 MCV 96 H MCH 32.9 MCHC 34.4 RDW 12.8 Plt Count 226 MPV 9.9 Immature Gran % 0.3 Neutrophils % 68.4 Lymphocytes % 23.2 Monocytes % 6.2 Eosinophils % 1.3 Basophils % 0.6 Nucleated RBC % 0.0 Absolute Neutrophils 6.67 Absolute Lymphocytes 2.27 Absolute Monocytes 0.61 Absolute Eosinophils 0.13 Absolute Basophils 0.06 Sodium 139 Potassium 4.0 Chloride 104 Carbon Dioxide 26.7 Anion Gap 8.3 BUN 8 Creatinine 0.5 L Est GFR (CKD-EPI 2020) 124.58 Glucose 93 Calcium 8.5 Total Bilirubin 0.3 AST 11 L ALT 22 Alkaline Phosphatase 100 Total Protein 7.6 Albumin 3.9 Lipase 29 Urine Color Yellow Urine Clarity Clear Urine pH 5.5 Ur Specific [place] 1.025 Urine Protein Negative Urine Ketones Negative Urine Blood Trace-intact H Urine Nitrite Negative Urine Bilirubin Negative Urine Urobilinogen 0.2 Ur Leukocyte Esterase Negative Urine RBC 0-2 Urine WBC Negative Ur Epithelial Cells Few Urine Crystals Moderate Uric Acid Urine Bacteria Negative Urine Casts Negative Urine Mucus Negative Ur Culture Indicated? No Urine Glucose Negative Last Vital Signs Temp 97.0 F L 04/13/23 13:50 Pulse 77 04/13/23 13:50 Resp 18 04/13/23 13:50 BP 143/95 H 04/13/23 13:50 Pulse Ox 100 04/13/23 13:50
--- NOTE | 2023-04-13 15:40 | ANES.PREOP_ITS ---
General Info Date of Service Date Performed: 04/13/23 Height: 5 ft Weight: 81.647 kg Body Mass Index (BMI): 35.2 Surgical Procedure: Operation Date: 04/13/23 16:00 Proposed Procedure Side Surgeon p Appendectomy Laparoscopic Herbert Gonzalez MD Meds Allergies and Home Medications Allergies Allergy/AdvReac Type Severity Reaction Status Date / Time cyclobenzaprine Allergy Intermediate Hives Unverified 04/13/23 13:59 [From Flexeril] cephalexin [Cephalexin] AdvReac Severe Abdominal Verified 04/13/23 13:59 Cramps vancomycin AdvReac Severe diarrhea, Verified 04/13/23 13:59 redness acetaminophen AdvReac Intermediate Other (See Verified 04/13/23 13:59 Comment) Cephalosporins AdvReac Intermediate Diarrhea Verified 04/13/23 13:59 codeine phosphate AdvReac Intermediate Vomiting Verified 04/13/23 13:59 [From Tylenol-Codeine #3] ketorolac [From Toradol] AdvReac Intermediate Nausea Verified 04/13/23 13:59 silver AdvReac Intermediate Skin Rash Verified 04/13/23 13:59 [From Tegaderm AG Mesh] tramadol AdvReac Intermediate Diarrhea Verified 04/13/23 13:59 Home Medication Medication Instructions Recorded ibuprofen 800 mg tablet 800 mg PO Q8H PRN pain #30 tabs 02/27/20 lidocaine 5 % topical ointment 1 applic topical BID PRN pain #50 01/13/22 grams Saccharomyces boulardii 250 mg 250 mg PO BID #14 caps 05/01/22 capsule (Florastor) sertraline 50 mg tablet 50 mg PO HS #90 tabs 05/04/22 trazodone 100 mg tablet 100 mg PO HS #90 tabs 05/04/22 ondansetron 4 mg disintegrating 4 mg PO Q6H PRN nausea and 12/07/22 tablet vomiting #30 tabs clindamycin phosphate 1 % topical 1 applic topical DAILY PRN 04/13/23 gel, once daily triamcinolone acetonide 0.1 % 1 applic topical BID PRN 04/13/23 topical cream Current Visit Medications: Current Medications Generic Name Dose Route Start Last Admin Trade Name Freq PRN Reason Stop Dose Admin Piperacillin Sod/Tazobactam 50 mls @ 100 mls/hr 04/13/23 15:15 04/13/23 15:26 Sod 3.375 gm/ Sodium Chloride IVPB 04/13/23 15:44 100 mls/hr NOW ONE Administration Iohexol 500 ml 04/13/23 14:45 04/13/23 14:38 Omnipaque 350 Mg/Ml 500 Ml Btl-Imaging Package IJ 05/13/23 23:59 100 ml DIRECTED DIMITRY Administration Sodium Chloride 50 ml 04/13/23 14:45 04/13/23 14:36 Normal Saline - Diluent 50 Ml Vial IJ 50 ml .FOR DI USE DIMITRY Administration PFSH Active Problems Active Problems: Problem Status Onset Code Breast pain, left N64.4 Unspecified open wound of left breast, initial encounter S21.002A Diarrhea R19.7 Palpable mass of soft tissue of knee M79.89 Low HDL (under 40) E78.6 Obesity without serious comorbidity E66.9 Hidradenitis suppurativa L73.2 Bilateral ovarian cysts N83.201, N83.202 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 reports nerves were fixed Status post endovenous radiofrequency ablation (RFA) of saphenous vein for venous insufficiency 09/06/2018 wisdom teeth extraction Extracorporeal shock wave lithotripsy EGD - MAC Tobacco Smoking/Tobacco Use Status: Former Tobacco Use Counseling given: provider counseling Alcohol Alcohol Intake: never Substance Use Substance use: Rarely Substance use type: marijuana Vital Signs and Lab Results Vital Signs Most Recent Vital Signs in EMR: Most Recent Vital Signs Temp Pulse Resp BP Pulse Ox 36.1 C L 77 18 143/95 H 100 04/13/23 13:50 04/13/23 13:50 04/13/23 13:50 04/13/23 13:50 04/13/23 13:50 Lab Results 04/13/23 13:46 04/13/23 13:46 Blood Type / Crossmatch: 2 No Data to Display Complete Blood Count: 2 White Blood Count 9.77 10^3/uL (4.4-10.8) 04/13/23 13:46 Red Blood Count 4.50 10^6/uL (3.93-5.22) 04/13/23 13:46 Hemoglobin 14.8 g/dL (11.2-15.7) 04/13/23 13:46 Hematocrit 43.0 % (36.0-46.0) 04/13/23 13:46 Platelet Count 226 10^3/uL (130-400) 04/13/23 13:46 Venous Blood Lactate 1.7 mmol/L (0.6-1.4) H 04/06/23 08:15 Complete Metabolic Panel: 2 Sodium 139 mmol/L (136-145) 04/13/23 13:46 Potassium 4.0 mmol/L (3.5-5.1) 04/13/23 13:46 Chloride 104 mmol/L (98-107) 04/13/23 13:46 Carbon Dioxide 26.7 mmol/L (21.0-32.0) 04/13/23 13:46 BUN 8 mg/dL (7-18) 04/13/23 13:46 Creatinine 0.5 mg/dL (0.55-1.02) L 04/13/23 13:46 Est GFR (CKD-EPI 2020) 124.58 (mL/min/1.73m2) 04/13/23 13:46 Magnesium 2.3 mg/dL (1.8-2.4) 04/06/23 08:15 Calcium 8.5 mg/dL (8.5-10.1) 04/13/23 13:46 Albumin 3.9 g/dL (3.4-5.0) 04/13/23 13:46 Glucose 93 mg/dL (74-106) 04/13/23 13:46 C-Reactive Protein 0.22 mg/dL (0.0-0.3) 04/06/23 08:15 Liver Function Panel: 2 Alanine Aminotransferase (ALT/SGPT) 22 U/L (14-59) 04/13/23 13: 46 Aspartate Amino Transf (AST/SGOT) 11 U/L (15-37) L 04/13/23 13: 46 Coagulation Panel: 2 No Data to Display Cardiac Panel: 2 No Data to Display Arterial Blood Gas: 2 No Data to Display Venous Blood Gas: 2 No Data to Display Pancreas Panel: 2 Lipase 29 U/L (16-77) 04/13/23 13:46 Thyroid Panel: 2 No Data to Display Infectious Disease: 2 No Data to Display Blood Cultures: 2 No Data to Display Toxicology Panel: 2 No Data to Display Panel: 2 No Data to Display Imaging and Studies Imaging and Studies Study information below may be from another EMR and interpreted by another provider. Please see original notes in EMR for more complete details. EKG Summary: 12/10: sinus bird. Anesthesia Assessment and Plan Anesthesia History Personal History: No History of Anesthesia Complications Family History: No Family History of Anesthesia Complications Exercise Tolerance Exercise Tolerance: Metabolic Equivalents>4 Cardiac & Pulmonary Exam Cardiac Exam: Normal S1/S2 Heart Sounds Pulmonary Exam: Clear Bilateral Breath Sounds Implantable Cardiac Device Does patient have a Pacemaker or an ICD?: No Airway Exam Known Difficult Airway: No Mallampati Class: 2 Mouth Opening: Normal (> 3cm) Thyromental Distance: Less than 3 cm Neck Range of Motion: Full ROM Neck Circumference: Normal Teeth Condition: Normal Dentition ASA Classification ASA Score: ASA 2 Emergency Case?: No NPO Status NPO Status: NPO Clears >2 hours, Solids >8 hours Status Status: History of Hysterectomy Anesthesia Plan Resuscitation Status: Full Code Anesthesia Technique: General Anesthesia Airway Planned: Endotracheal Tube Monitors Used: Standard Monitors Preoperative Comments:: 37 yo female for lap appy. Sig PMHx: anxiety, former smoker, occ EtOH. Previous anes: - mac 3, 2a, easy mask with OPA. - LMA 4
[2023-04-13] MEDS: HYDROmorphone 2 MG/ML SYR 1 MG IVP (16:00)
[2023-04-13] MEDS: Lactated Ringers 1,000 ML 30 ML IV (16:14)
[2023-04-13] MEDS: Bupivacaine 0.25% Pres-Free 30 ML VIAL (16:45)
--- NOTE | 2023-04-13 17:00 | APP_PTH ---
PATIENT: Rosa Stanton LOC: U#:[id number] AGE/SX: 37/F ROOM: 226 RE04/13/[address]: Herbert Gonzalez MD : 1985 BED: A DIS: 04/14/2023 SPEC #: [id number] RECD: 04/13/23 18:18 STATUS: SOUT REQ #: [id number] DANELLE: 04/13/23 17:[address]: Herbert Gonzalez DEPT: Surgical Specimen RECD BY: Lesvia Pearce ENTERED: 04/13/23 18:18 SP TYPE: Appendix OTHR DR: Unknown,Unknown Tissues: 1 - APPENDIX NOT INCIDENTAL Procedures: GROSS AND MICRO LEVEL 3 Comments: [id number]
--- NOTE | 2023-04-13 17:05 | ROE_ITS ---
Date of service: 04/13/23 Time of Service: 17:06 Operative Note Operative Note DATE OF PROCEDURE: 04/13/23 PRE-OP DIAGNOSIS: Acute appendicitis POST-OP DIAGNOSIS: same PROCEDURE: Laparoscopic appendectomy SURGEON: Herbert Gonzalez INDEPENDENT SALES REPRESENTATIVE: Maribell Valero ANESTHESIA TYPE: Local By Surgeon and General LMA/ETT Refer to Anesthesia Record ESTIMATED BLOOD LOSS: 15 PATHOLOGY: other (Appendix) COMPLICATIONS: Other (Severe transient bradycardia associated with sugammadex dosing) Patient was transported to: PACU Patient's condition: stable Indications: Rosa is a 37-year-old woman who presents to the emergency department with acute onset of abdominal pain this morning. She underwent CT scan that demonstrated acute appendicitis. Findings: Acute nonperforated appendicitis Procedure Description: After the induction of general anesthesia, I prepped and draped the anterior abdominal wall in the usual fashion. Next, I made an umbilical incision. I opened the fascia under direct vision. Next, with an optical viewing port, I entered the peritoneal cavity under direct vision. I insufflated. There was no evidence of any trauma from the insertion. Next, with the assistance of the laparoscope, I placed 5 mm port in the left lower quadrant position. I moved the camera over to the left lower quadrant and exchanged the 5 mm port at the umbilical site for 12 mm port. I jumped the camera back to the umbilical port and placed another 5 mm port in the suprapubic position. I then moved the scope back into the left lower quadrant, and positioned the patient with some Trendelenburg and left side down. I started by examining the area of the right lower quadrant. I reflected the greater omentum cephalad and identified the terminal ileum. I traced this to the insertion at the cecum and then identified the base of the appendix at the confluence of the cecal tenia. Next, I mobilized the appendix which did appear acutely inflamed. I then used sequential firings of the LigaSure to divide the mesoappendix. Once this was complete I divided the appendix with a healthy cuff of cecum using a BOY stapler. I placed the appendix into an Endo Catch bag and removed through the umbilical port site. I examined the surgical field. The staple line looked fine. There was no contamination or spillage and the surgical field was hemostatic. I then removed the port sites under the vision the laparoscope and closed the umbilical fascia with 0 Vicryl stitches. Finally, irrigated the skin and approximated the dermis with subcuticular absorbable suture. During skin closure, she did have an episode of profound bradycardia. This was temporally associated with sugammadex reversal. Approximately 3-4 chest compressions were performed during this time, with resolution of normal sinus rhythm. She remained stable for the rest of the closure and bandaging, and she was extubated without any issues and transferred to the recovery unit.
--- NOTE | 2023-04-13 17:15 | RT.EKG_ITS ---
APPROVED REPORT Exam: Resting ECG Reason for Exam: intra operative bradycardia Patient Location: O HR:67 bpm ECG Measurements Heart Rate 67 AXIS IN 155 P 55 QRSd 108 QRS -6 QT 418 T -5 QTc 441 Conclusion Sinus rhythm...normal P axis, V-rate 60- 99 Probable left atrial enlargement...P >50mS, <-0.10mV V1 I have reviewed and interpreted ECG and agree with software generated interpretation.
[2023-04-13] MEDS: HYDROmorphone 2 MG/ML SYR IVP ×2 (17:40→17:50)
--- NOTE | 2023-04-13 17:52 | W.ANESPOSTOP ---
Postoperative Evaluation Date, Time and Location Date Performed: 04/13/23 Time Performed: 17:52 Patient Location: PACU Vital Signs Most Recent Imported Vital Signs: Most Recent Vital Signs Temp Pulse Resp BP Pulse Ox 36.7 C 71 16 123/75 97 04/13/23 17:39 04/13/23 17:39 04/13/23 17:39 04/13/23 17:39 04/13/23 17:39 Pain Score Most Recent Pain Score: Most Recent Pain Score Pain Level 8 04/13/23 17:39 Assessment Mental Status: Awake (Alert & Oriented to Patient Baseline) Airway and Respiratory Function: Patent airway with normal (patient baseline) respiratory exam Cardiovascular Function: Hemodynamically Stable Hydration Status: Adequately Hydrated Nausea & Vomiting: No Nausea or Vomiting Pain: Pain is tolerable per patient Peripheral Nerve Block: Patient did not receive a nerve block Postoperative Comments:: discussed her adverse event likely related to sugammadex. this was repeated a few times, in hopes that she recalls the events.
[2023-04-13] MEDS: MORPHine 2 MG/ML SYR IVP ×2 (19:43→21:20)
[2023-04-13] MEDS: Normal Saline Flush 10 ML SYR IVP (19:43)
[2023-04-13] MEDS: Sertraline 50 MG TAB PO (21:51)
[2023-04-13] MEDS: oxyCODONE 5 mg/Acetaminophen 325 mg TAB 1 TAB PO (23:31)
[2023-04-14 03:03] VITALS: BP 117/74; PULSE 71; RESP 18; TEMP 36.3; O2SAT 94
[2023-04-14] MEDS: MORPHine 2 MG/ML SYR IVP (03:03)
[2023-04-14 07:12] VITALS: BP 124/73; PULSE 65; RESP 18; TEMP 36.6; O2SAT 95
[2023-04-14] MEDS: oxyCODONE 5 mg/Acetaminophen 325 mg TAB 1 TAB PO (07:26)
[2023-04-14] MEDS: Normal Saline Flush 10 ML SYR IVP (07:27)
[2023-04-14] MEDS: Enoxaparin 40 MG/0.4 ML SYR SC (07:48)
--- NOTE | 2023-04-14 07:52 | PGE_ITS ---
Date of Service Date of service: 04/14/23 Time of Service: 07:52 Assessment and Plan Assessment and plan (1) S/P laparoscopic appendectomy: Status: Acute Assessment and plan: POD #1 s/p laparosopic Appendectomy Regular diet this morning. Pain is well controlled. Will d/c home, discussed using ice, tylenol and ibuprofen for pain management. Encouraged modified activity for the next 1-2 weeks. Once she has eaten breakfast, she can d/c home. Follow up in the office in 2 weeks. Subjective Subjective Interval history since last seen: Arrive with the patient resting comfortably in bed. She describes having abdominal soreness this morning, 6-09/26PL, i expected this I have had laproscopic procedures before. Patient reports she is eager to be d/c home. Exam Const General: cooperative, healthy appearing and comfortable Orientation: alert and oriented x3 Resp Effort & Inspection: normal respiratory effort, no audible wheezes and no cough GI Inspection: normal to inspection and non-distended Palpation: soft, no guarding and tender Other: Incisions are well approximated with skin a fix in place Objective Last Vital Signs Temp 36.6 C 04/14/23 07:12 Pulse 65 04/14/23 07:12 Resp 18 04/14/23 07:12 BP 124/73 04/14/23 07:12 Pulse Ox 95 04/14/23 07:12 Laboratory Results - last 24 hr 04/13/23 04/13/23 13:46 14:09 WBC 9.77 RBC 4.50 Hgb 14.8 Hct 43.0 MCV 96 H MCH 32.9 MCHC 34.4 RDW 12.8 Plt Count 226 MPV 9.9 Immature Gran % 0.3 Neutrophils % 68.4 Lymphocytes % 23.2 Monocytes % 6.2 Eosinophils % 1.3 Basophils % 0.6 Nucleated RBC % 0.0 Absolute Neutrophils 6.67 Absolute Lymphocytes 2.27 Absolute Monocytes 0.61 Absolute Eosinophils 0.13 Absolute Basophils 0.06 Sodium 139 Potassium 4.0 Chloride 104 Carbon Dioxide 26.7 Anion Gap 8.3 BUN 8 Creatinine 0.5 L Est GFR (CKD-EPI 2020) 124.58 Glucose 93 Calcium 8.5 Total Bilirubin 0.3 AST 11 L ALT 22 Alkaline Phosphatase 100 Total Protein 7.6 Albumin 3.9 Lipase 29 Urine Color Yellow Urine Clarity Clear Urine pH 5.5 Ur Specific [place] 1.025 Urine Protein Negative Urine Ketones Negative Urine Blood Trace-intact H Urine Nitrite Negative Urine Bilirubin Negative Urine Urobilinogen 0.2 Ur Leukocyte Esterase Negative Urine RBC 0-2 Urine WBC Negative Ur Epithelial Cells Few Urine Crystals Moderate Uric Acid Urine Bacteria Negative Urine Casts Negative Urine Mucus Negative Ur Culture Indicated? No Urine Glucose Negative Time Spent with Patient Time Spent with Patient: <25 minutes Time was spent: preparing to see the patient(eg.review tests), obtaining and/or reviewing separately otained hiistory and counseling the patient
--- NOTE | 2023-04-14 07:56 | DSE_ITS ---
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 CT scan in the ER demonstrated acute appendicitis. She under went laparoscopic appendectomy with Dr. Gonzalez. Of note a complication of the procedure was a severe transient bradycardia associated with sugammadex dosing, which resolved. Over night the patient did well, urinating and tolerating PO fluids and light food. D/C home. She will need to follow up with the surgical office in 2 weeks. Home Meds and New Rx's Prescriptions: Continued sertraline 50 mg tablet 50 mg PO HS Qty: 90 3RF trazodone 100 mg tablet 100 mg PO HS Qty: 90 4RF ondansetron 4 mg tablet,disintegrating 4 mg PO Q6H PRN (Reason: nausea and vomiting) Qty: 30 0RF lidocaine 5 % ointment 1 applic topical BID PRN (Reason: pain) Qty: 50 0RF triamcinolone acetonide 0.1 % cream 1 applic topical BID PRN clindamycin phosphate 1 % gel, once daily 1 applic topical DAILY PRN ibuprofen 800 mg tablet 800 mg PO Q8H PRN (Reason: pain) Qty: 30 1RF Saccharomyces boulardii [Florastor] 250 mg capsule 250 mg PO BID Qty: 14 0RF Discharge Instructions Instructions: Laparoscopic Appendectomy (DC) Additional Instructions: No swimming, soaking in bath tubs or hot tubs until the incision site is fully healed for this can significantly increase their risk of infection. -Apply Cold for 15 mins to the affected area to reduce swelling -Take over the counter pain medicine for pain, soreness and swelling such as Tylenol (Do not exceed 4 grams/day), Ibuprofen (Do not exceed over 1200mg/day), Aleve or Motrin. Signs and symptoms of infection to include fevers, chills, sweats, redness, soreness or swelling in the area, new onset pain or new onset/change in drainage. Patient verbalized understanding and will call this office, their PCP or go to the ER if any of these symptoms occur. Stand Alone Forms: Nursing Discharge Form Referrals: Herbert Gonzalez MD [ [facility] STAFF PHYSICIAN] - 04/26/23 1:15 pm (2 week s/p lap appy f/u ) Activity:: Activity as Tolerated Equipment/Supplies:: No Equipment Needed Diet:: Normal Diet Discharge Orders Discharge Orders: Discharge Order (Routine); Ordered 04/14/23 Ordered By: Janki Antoine DS: Summary Time Spent with Patient providing and/or coordinating discharge services: Less than 30 minutes Status at Discharge Functional status at discharge: independent ambulation Overall status at discharge: patient is back to baseline Mental Status: mental status grossly normal Speech and Movement: speech and movement normal Mood: congruent mood Affect: normal affect Quality:SDOH Health Related Social Needs: Health related social needs details no reported proble ms. Health related social needs details: no reported problems. Exam Const General: cooperative, healthy appearing and comfortable Orientation: alert and oriented x3 Resp Effort & Inspection: normal respiratory effort, no audible wheezes and no cough GI Inspection: normal to inspection and non-distended Palpation: soft, no guarding and tender Other: Incisions are well approximated with skin a fix in place Psych Mental Status: mental status grossly normal Speech and Movement: speech and movement normal Mood: congruent mood Affect: normal affect DS: Data Vitals/I&O Vitals and I&O: Vital Signs Temperature 36.6 C 04/14/23 07:12 Temperature Source Tympanic 04/14/23 07:12 Pulse 65 04/14/23 07:12 Pulse Rhythm Regular 04/14/23 03:04 Respiratory Rate 18 04/14/23 07:12 Respiratory Effort Normal 04/14/23 03:04 Respiratory Depth Normal 04/14/23 03:04 Respiratory Pattern Normal 04/14/23 03:04 Blood Pressure 124/73 04/14/23 07:12 Blood Pressure Position Sitting 04/13/23 13:50 Pulse Oximetry 95 04/14/23 07:12 Respiratory End-tidal CO2 36 04/13/23 18:06 Oxygen Delivery Method Room Air 04/14/23 07:12 Oxygen Flow Rate 0 04/14/23 07:12 Pain Level 7 04/14/23 07:26 Comment pain is a 7 in lower ab 04/14/23 07:12 Intake & Output 04/13/23 04/14/23 04/14/23 18:59 06:59 18:59 Intake Total 210 / 1210 1000 / 1210 Output Total 150 / 150 Balance 210 / 1210 1000 / 1210 -150 / -150 Weight 81.737 kg Intake: IV 210 / 210 Oral 1000 / 1000 Output: Urine 150 / 150 Other: Urine Color Yellow Yellow Urine Appearance Clear Clear Urine Odor Normal Comment pt uses bathroom independently. Emesis Description None Voiding Methods Toilet Toilet Data Completed and Pending Labs on day of discharge: Labs from last 24 hours 04/13/23 04/13/23 14:09 13:46 WBC 9.77 RBC 4.50 Hgb 14.8 Hct 43.0 MCV 96 H MCH 32.9 MCHC 34.4 RDW 12.8 Plt Count 226 MPV 9.9 Immature Gran % 0.3 Neutrophils % 68.4 Lymphocytes % 23.2 Monocytes % 6.2 Eosinophils % 1.3 Basophils % 0.6 Nucleated RBC % 0.0 Absolute Neutrophils 6.67 Absolute Lymphocytes 2.27 Absolute Monocytes 0.61 Absolute Eosinophils 0.13 Absolute Basophils 0.06 Sodium 139 Potassium 4.0 Chloride 104 Carbon Dioxide 26.7 Anion Gap 8.3 BUN 8 Creatinine 0.5 L Est GFR (CKD-EPI 2020) 124.58 Glucose 93 Calcium 8.5 Total Bilirubin 0.3 AST 11 L ALT 22 Alkaline Phosphatase 100 Total Protein 7.6 Albumin 3.9 Lipase 29 Urine Color Yellow Urine Clarity Clear Urine pH 5.5 Ur Specific [place] 1.025 Urine Protein Negative Urine Ketones Negative Urine Blood Trace-intact H Urine Nitrite Negative Urine Bilirubin Negative Urine Urobilinogen 0.2 Ur Leukocyte Esterase Negative Urine RBC 0-2 Urine WBC Negative Ur Epithelial Cells Few Urine Crystals Moderate Uric Acid Urine Bacteria Negative Urine Casts Negative Urine Mucus Negative Ur Culture Indicated? No Urine Glucose Negative PFSH All Active Problems (Updated 04/06/23 @ 09:10 by Marina Moe NP) S/P laparoscopic appendectomy (Acute) Breast pain, left (Acute) Unspecified open wound of left breast, initial encounter (Acute) Diarrhea (Acute) Palpable mass of soft tissue of knee (Acute) Low HDL (under 40) (Acute) Obesity without serious comorbidity (Acute) Hidradenitis suppurativa (Acute) bilateral, managed at [facility] [place] derm. Pending Humira start. [facility] [place] did pain clinic referral. Bilateral ovarian cysts (Chronic) seen on multiple imaging studies Loin pain hematuria syndrome (Acute) never officially diagnosed by color print inspector Lymphedema of left lower extremity (Chronic) Anxiety (Acute 02/11/13) panic Medical History (Updated 04/06/23 @ 09:10 by Marina Moe NP) History of tobacco abuse quit 01/2022 History of renal calculi Endometriosis, unspecified LAPROSCOPY 2009 hysterect 2019 on OC for control Hepatomegaly Vitamin D deficiency Anemia Hepatic steatosis Surgical History (Updated 04/14/23 @ 07:55 by REESE Sarah) S/P laparoscopy (2009) stage 1 endometriosis S/P laparoscopic assisted vaginal hysterectomy (LAVH) ovaries intact Hx of hand surgery L hand, pt. reports nerves were fixed Status post endovenous radiofrequency ablation (RFA) of saphenous vein for venous insufficiency 09/06/2018 wisdom teeth extraction Extracorporeal shock wave lithotripsy EGD - MAC Family History Mother Diabetes Heart disease Hyperlipidemia Father Colon cancer Heart disease Hyperlipidemia Sister Hyperlipidemia Grandfather Diabetes Grandfather Diabetes Hyperlipidemia Asthma Grandmother Diabetes Personal history of malignant neoplasm Breast Heart disease Hyperlipidemia Grandmother No problems noted. 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 Pets and animals: Yes Pets and animals: dog(s) Sexually active: Yes Do you think of yourself as: straight/heterosexual Current gender identity: female What is your relationship status?: never How often do you talk on the phone with friends or family?: three or more times per week How often do you get together with friends or relatives?: once per week How often do you attend taoism or oriental orthodox services?: 1-3 times per year Do you belong to any clubs or organized social groups?: no Panel score (0-1 are the most socially isolated patients): 1 What type of physical activity do you participate in: other Duration: > 90 minutes/day Frequency: 5-6 times per week Melida/Gnosticist: None Do you feel safe at home: Yes Do you feel safe in your relationship?: Yes Time Spent with Patient Time Spent with Patient: <45 minutes Time was spent: preparing to see the patient(eg.review tests), obtaining and/or reviewing separately otained hiistory and care coordination
--- NOTE | 2023-04-14 09:42 | ANES_ITS ---
Date of service: 04/14/23 Time of Service: 08:55 Anesthesia Note Report Anesthesia Note: Patient seen this morning, denies complaint other than a little tired. Family member at bedside. No questions initially about the anesthetic care. Family member did pose a question about suggamadex which lead to a robust converasation related to suggamadex and it's known adverse effect of bradycardia. We did discuss that as a medicine mediated event we do not expect it to occur again, however, I did ask them to notify anesthesia in the future of her severe bradycardic reaction. I do believe she can receive suggamadex in the future, just with full awareness that bradycardia might occur in the future, and that a split dosing might be recommended. Patient denied further questions and was cleared for discharge home. I did discuss the case with Dr. Gonzalez after our be dside discussion. We discussed rationale for potential CXR due to compressions, however, this was not felt to be appropriate at the time as patient not having any chest pain or difficulty breathing post compressions. I will add an anesthetic problem to the problem list with a narrative related to this event.
== END 2023-04-14 09:08 | disposition home or self-care (01) ==
LOC: ER 12:05 → DSU 16:11 → MS 18:15
PROVIDERS: Admitting Provider Surgery; Emergency Provider Physician Assistant; Visit Provider Surgery
PROC: 0DTJ4ZZ Resection of Appendix, Percutaneous Endoscopic Approach (ICD-10-PCS; CPT 44970; principal; 2023-04-13 16:00)
DX: K35.80 Unspecified acute appendicitis (principal); R00.1 Bradycardia, unspecified; T88.59XA Other complications of anesthesia, initial encounter; T41.45XA Adverse effect of unspecified anesthetic, initial encounter
CPT/HCPCS: 44970; 36415; 80053; 83690; 96365; 96372; 96374; 96375; 96376; 99285; J1650; 74177; 81003; 81015; 85025; 88304; 93005; 93010; G0378; J0665; J1100; J1170; J1805; J2270; J2405; J2543; J2704; J3010

== ENCOUNTER 2023-04-20 11:07 | Emergency (ER) | payer MEDICAID, SELFPAY ==
[2023-04-20 11:21] VITALS: BP 133/87; PULSE 90; RESP 17; TEMP 38.2; O2SAT 97
--- NOTE | 2023-04-20 11:45 | DI.CT_ITS ---
Exam(s) CT ABDOMEN PELVIS W EXAM: CT ABDOMEN PELVIS W CLINICAL HISTORY: RLQ abd Pain, fever, vomiting, recent Appendectomy. TECHNIQUE: Imaging Protocol: Axial computed tomography images with coronal and sagittal reformatted images were created and reviewed CONTRAST MATERIAL: Intravenous: Omnipaque-350 100cc Oral: None COMPARISON: CT CT ABDOMEN PELVIS W from 04/13/2023 FINDINGS: VISUALIZED LUNG BASES: No nodules nor pleural effusions evident. ABDOMEN: There is no ascites. LIVER: There are no focal hepatic lesions evident. No evidence of intrahepatic abscess, given the re cent history here. No dilated intrahepatic ducts. GALLBLADDER/BILIARY: The gallbladder is again noted be surgically absent. CBD diameter slightly prom inent but unchanged. PANCREAS: No evidence of pancreatic mass nor dilatation of the pancreatic duct. SPLEEN: Spleen is not enlarged. No obvious intrasplenic lesions. Splenic and portal veins are paten t. ADRENALS: There are no significant adrenal masses. KIDNEYS:No cysts evident. No solid renal masses. No calculi nor hydronephrosis.. ABDOMINAL AORTA: Abdominal aorta is not enlarged. LYMPH NODES:There is no retroperitoneal nor paraaortic adenopathy. ABDOMINAL WALL: Findings in the immediate supraumbilical anterior abdominal wall consistent with rece nt port site. Small fat containing umbilical hernia again noted, unchanged. GI: The appendix is now surgically absent. There is no abnormal streaking nor abscess in the immedia te Reina cecal region. Also no evidence of significant diverticular disease. No bowel obstruction. PELVIS: GI: As aboveno evidence of sigmoid diverticulitis. LYMPH NODES: There is no intrapelvic nor inguinal adenopathy. REPRODUCTIVE: There is new cyst in the left adnexa measuring 4 by 3.3 cm, significantly increased in size from 1 week ago and there is small-moderate amount of free fluid in the dependent aspect of the pelvis. There is no enhancement around the periphery of this fluid. Right ovary appears unremarkabl e. URINARY BLADDER: No calculi nor obvious masses evident OSSEOUS: No fractures and no significant osseous lesions. IMPRESSION: 1. Compared to the prior CT scan of 04/13/2023 there has been interval appendectomy. There is no abn ormal streaking nor fluid collection in the immediate vicinity of the right lower quadrant appendix s ite. However, I note that on the prior study the inflamed appendix was long and hanging down into th e low pelvis where there is now a small-moderate size fluid collection which was not previously prese nt. However, there is also now a new prominent left adnexal presumably ovarian cyst measuring 4 x 3. 3 cm. This may be responsible for the patient's pain and possibly also responsible for the fluid in the dependent aspect of the pelvis in this patient has had prior hysterectomy. 2. In addition, I am now where that this patient had hysterectomy for endometriosis. Cannot exclude the possibly that this new left adnexal ovarian cyst is an endometrioma. 3. Therefore, differential diagnosis for the new moderate amount of fluid in the dependent aspect of the pelvis is either related to the left ovarian cyst or endometrioma or purulent fluid from prior in flamed appendix 1 week ago. 4. Correlation with surgical report from the appendectomy is recommended. Findings discussed with ER provider RADIATION DOSE DELIVERED: 912.34mGy.cm Total DLP DATA REPOSITORY: All CT scans at this facility are submitted to the National Radiology Data Registry (NRDR) Dose Index Registry (DIR) with the [employer] (ACR). RADIATION OPTIMIZATION: All CT scans at this facility use at least one of these dose optimization te chniques: automated exposure control; mA and/or kV adjustment per patient size (includes targeted exa ms where dose is matched to clinical indication); or iterative reconstruction.
[2023-04-20 11:47] LABS: Lactate 1.3 mmol/L (0.6-1.4)
[2023-04-20 11:48] LABS: Abs Immature Grans 0.05 10^3/uL (0.0-0.06); Absolute Basophil Count 0.05 10^3/uL (0.0-0.2); Absolute Eosinophil Count 0.15 10^3/uL (0.0-0.7); Absolute Monocyte Count 0.52 10^3/uL (0.1-0.8); Absolute Neutrophil Count 4.99 10^3/uL (1.2-6.7); Basophils % 0.6; Eosinophils % 1.9; HCT 44.9 % (36.0-46.0); HGB 15.6 g/dL (11.2-15.7); Immature Grans % 0.6; Lymphocytes % 26.7; MCH 33.4 pg (27.0-33.0); MCHC 34.7 % (32.0-36.0); MCV 96 fL (80-95); MPV 9.7 fL (8.0-11.0); Monocytes % 6.6; Neutrophils % 63.6; Platelet Count 219 10^3/uL (130-400); RBC 4.67 10^6/uL (3.93-5.22); RDW 12.9 % (11.7-14.6); RDW-SD 45.2 fL; WBC 7.86 10^3/uL (4.4-10.8)
[2023-04-20] MEDS: Normal Saline 1,000 ML 1000 ML IV (11:50)
[2023-04-20 11:52] VITALS: RESP 16; O2SAT 97
[2023-04-20 12:03] LABS: ALT 26 U/L (14-59); AST 11 U/L (15-37); Alkaline Phosphatase 88 U/L (46-116); Anion Gap 9.2 mmol/L (3-11); BUN 12 mg/dL (7-18); Bilirubin, Total 0.3 mg/dL (0.2-1.0); CO2 27.8 mmol/L (21.0-32.0); CREATININE 0.7 mg/dL (0.55-1.02); Chloride 103 mmol/L (98-107); Estimated GFR 114.88 (mL/min/1.73m2); Glucose 106 mg/dL (74-106); Lipase 74 U/L (16-77); Magnesium 2.1 mg/dL (1.8-2.4); Potassium 4.3 mmol/L (3.5-5.1); Sodium 140 mmol/L (136-145); Total Protein 7.8 g/dL (6.4-8.2)
[2023-04-20] MEDS: Ondansetron 4 MG/2 ML VIAL IVP (12:17)
--- NOTE | 2023-04-20 12:35 | ED.GENADUL_ITS ---
HPI General Mode of arrival: ambulatory . Date/Time Provider Initiated Documentation: 04/20/23 11:09 . Limitations to Documentation: no limitations . Information obtained by: patient, RN notes reviewed and old records reviewed . HPI Narrative: 37-year-old female presents to the ER with chief complaint of right lower quadrant abdominal pain, fever, nausea vomiting which began last night. Patient is status post appendectomy approximately 1 week ago. She was instructed to follow-up here for further care and evaluation. She reports chills. She does have a past medical history of endometriosis, vitamin D deficiency hepatomegaly, anemia, hepatic steatosis. She is also status post laparoscopic hysterectomy Related Data Home Medications Medication Instructions Recorded Confirmed ibuprofen 800 mg tablet 800 mg PO Q8H PRN pain #30 tabs 02/27/20 04/20/23 lidocaine 5 % topical ointment 1 applic topical BID PRN pain #50 01/13/22 04/20/23 grams Saccharomyces boulardii 250 mg 250 mg PO BID #14 caps 05/01/22 04/20/23 capsule (Florastor) sertraline 50 mg tablet 50 mg PO HS #90 tabs 05/04/22 04/20/23 trazodone 100 mg tablet 100 mg PO HS #90 tabs 05/04/22 04/20/23 ondansetron 4 mg disintegrating 4 mg PO Q6H PRN nausea and 12/07/22 04/20/23 tablet vomiting #30 tabs clindamycin phosphate 1 % topical 1 applic topical DAILY PRN 04/13/23 04/20/23 gel, once daily triamcinolone acetonide 0.1 % 1 applic topical BID PRN 04/13/23 04/20/23 topical cream oxycodone-acetaminophen 5 mg-325 1 tab PO Q8H PRN pain #9 tabs 04/14/23 04/20/23 mg tablet (Percocet) Previous Rx's Medication Instructions Recorded ibuprofen 800 mg tablet 800 mg PO Q8H PRN pain #30 tabs 02/27/20 lidocaine 5 % topical ointment 1 applic topical BID PRN pain #50 01/13/22 grams Saccharomyces boulardii 250 mg 250 mg PO BID #14 caps 05/01/22 capsule (Florastor) sertraline 50 mg tablet 50 mg PO HS #90 tabs 02/15/23 trazodone 100 mg tablet 100 mg PO HS #90 tabs 05/04/22 ondansetron 4 mg disintegrating 4 mg PO Q6H PRN nausea and 12/07/22 tablet vomiting #30 tabs oxycodone-acetaminophen 5 mg-325 1 tab PO Q8H PRN pain #9 tabs 04/14/23 mg tablet (Percocet) Allergies Allergy/AdvReac Type Severity Reaction Status Date / Time cyclobenzaprine Allergy Intermediate Hives Unverified 04/13/23 13:59 [From Flexeril] cephalexin [Cephalexin] AdvReac Severe Abdominal Verified 04/13/23 13:59 Cramps sugammadex AdvReac Severe Other (See Verified 04/13/23 17:42 Comment) vancomycin AdvReac Severe diarrhea, Verified 04/13/23 13:59 redness acetaminophen AdvReac Intermediate Other (See Verified 04/13/23 13:59 Comment) Cephalosporins AdvReac Intermediate Diarrhea Verified 04/13/23 13:59 codeine phosphate AdvReac Intermediate Vomiting Verified 04/13/23 13:59 [From Tylenol-Codeine #3] ketorolac [From Toradol] AdvReac Intermediate Nausea Verified 04/13/23 13:59 silver AdvReac Intermediate Skin Rash Verified 04/13/23 13:59 [From Tegaderm AG Mesh] tramadol AdvReac Intermediate Diarrhea Verified 04/13/23 13:59 General Stated Complaint: Abd Prob HALINA: 3 Review of Systems All systems reviewed & are unremarkable except as noted in HPI and below Gastrointestinal Gastrointestinal: Reports as per HPI, Reports abdominal pain, Reports nausea and Reports vomiting Exam Narrative Exam Narrative: Constitutional: Alert and oriented x3. Appears stated age. Normal body habitus. Head: Normocephalic, no trauma. Eyes: Pupils PERRL, Red reflex noted, EOM's intact. Eyelids symmetrical without lesions, discharge, or swelling. ENT: Bilateral TM's WNL, External ear normal to inspection, no mastoid TTP, swelling, or erythema, Nasal turbinates WNL, no nasal discharge. Normal dentition, Posterior pharynx WNL, no exudate. Chest: RRR, Normal S1, S2, distal pulses intact. Resp: Lungs clear to auscultation bilaterally, no wheezes, rales, or rhonchi. Abdomen: Soft, non-distended, Normoactive bowel sounds all 4 quads. Laparos copic incisions noted, no surrounding induration drainage or swelling noted. Patient is tender with palpation to the lower abdomen bilaterally. Musculoskeletal: Normal gait, 5/5 strength to all four extremities. Skin: No suspicious rashes or lesions. Capillary refill less than 2 sec. Neurologic: Cranial nerves II-XII intact. Alert and oriented x 3. Motor: No deficits noted. Sensory: Intact bilaterally all 4 extremities. Reflexes: DTR's intact bilaterally.. Hematologic/Lymphatic: No ecchymosis, no lymphadenopathy. Course Vital Signs Vital signs: Vital Signs Temperature 38.2 C H 04/20/23 11:21 Pulse 90 04/20/23 11:21 Respiratory Rate 17 04/20/23 11:21 Blood Pressure 133/87 04/20/23 11:21 Pulse Oximetry 97 04/20/23 11:21 Temperature 38.2 C H 04/20/23 11:21 Temperature Source Temporal Artery Scan 04/20/23 11:21 Pulse 90 04/20/23 11:21 Respiratory Rate 16 04/20/23 11:52 Respiratory Effort Normal, Non-Labored 04/20/23 11:52 Respiratory Depth Normal 04/20/23 11:52 Respiratory Pattern Normal 04/20/23 11:52 Blood Pressure 133/87 04/20/23 11:21 Blood Pressure Position Sitting 04/20/23 11:21 Pulse Oximetry 97 04/20/23 11:52 Oxygen Delivery Method Room Air 04/20/23 11:52 Oxygen Flow Rate 0 04/20/23 11:52 Pain Level 10 04/20/23 11:52 Lab/Test Results Lab/Test Results: 04/20/23 12:00 Blood Blood Culture - Pending 04/20/23 11:41 Blood Blood Culture - Pending Laboratory Tests Range/Units 04/20/23 11:41 WBC (4.4-10.8) 10^3/uL 7.86 RBC (3.93-5.22) 10^6/uL 4.67 Hgb (11.2-15.7) g/dL 15.6 Hct (36.0-46.0) % 44.9 MCV (80-95) fL 96 H MCH (27.0-33.0) pg 33.4 H MCHC (32.0-36.0) % 34.7 RDW (11.7-14.6) % 12.9 Plt Count (130-400) 10^3/uL 219 MPV (8.0-11.0) fL 9.7 Immature Gran % 0.6 Neutrophils % 63.6 Lymphocytes % 26.7 Monocytes % 6.6 Eosinophils % 1.9 Basophils % 0.6 Nucleated RBC % (0.0-0.3) % 0.0 Absolute Neutrophils (1.2-6.7) 10^3/uL 4.99 Absolute Lymphocytes (1.2-3.4) 10^3/uL 2.10 Absolute Monocytes (0.1-0.8) 10^3/uL 0.52 Absolute Eosinophils (0.0-0.7) 10^3/uL 0.15 Absolute Basophils (0.0-0.2) 10^3/uL 0.05 VBG Lactate (0.6-1.4) mmol/L 1.3 Sodium (136-145) mmol/L 140 Potassium (3.5-5.1) mmol/L 4.3 Chloride (98-107) mmol/L 103 Carbon Dioxide (21.0-32.0) mmol/L 27.8 Anion Gap (3-11) mmol/L 9.2 BUN (7-18) mg/dL 12 Creatinine (0.55-1.02) mg/dL 0.7 Est GFR (CKD-EPI 2020) (mL/min/1.73m2) 114.88 Glucose (74-106) mg/dL 106 Calcium (8.5-10.1) mg/dL 9.0 Magnesium (1.8-2.4) mg/dL 2.1 Total Bilirubin (0.2-1.0) mg/dL 0.3 AST (15-37) U/L 11 L ALT (14-59) U/L 26 Alkaline Phosphatase (46-116) U/L 88 Total Protein (6.4-8.2) g/dL 7.8 Albumin (3.4-5.0) g/dL 4.0 Lipase (16-77) U/L 74 Medical Decision Making 37-year-old female presents to the ER with chief complaint of right lower quadrant abdominal pain, fever, nausea vomiting which began last night. Patient is status post appendectomy approximately 1 week ago. She was instructed to follow-up here for further care and evaluation. She reports chills. She does have a past medical history of endometriosis, vitamin D deficiency hepatomegaly, anemia, hepatic steatosis. She is also status post laparoscopic hysterectomy 1230: Patient is refusing Tylenol due to it gives her a headache. 1236: Patient is declining to go to CT due to her pain report. Patient states that she would like something for pain, 4 mg of morphine ordered. Patient has expressed to me that she is willing to go to CT. Med orders placed. I did instruct her that I did order the Tylenol for the fever. She reports that she usually takes ibuprofen for fever. Spoke with Dr. Herbert regarding CT result he reports that there is fluid collection deep in the pelvis there is also a left adnexal cyst which could also be an endometrioma as well. Patient does have a history of a vaginal hysterectomy without oophorectomy. Patient has no leukocytosis, lactate is within normal limits, CMP is also largely within normal limits, lipase within normal limits urinalysis is pending at this time. Patient has received 4 mg of morphine. 1402: Informed by industrial staff nurse the patient is still complaining of some pain. Will give an additional 2 mg of morphine. 1418: Spoke with Dr. Gonzalez who was able to personally view did a CAT scan he does not recommend admission at this time. He does not see any abscess or infection around the appendectomy site. This pain could be related to the left ovarian cyst and or endometrioma which is noted. I will have patient follow-up with women's wellness and keep her postop surgical visit which is scheduled for April 26. I did discuss CT results with patient who verbalized understanding. She will k eep her appointment as previously scheduled. This text was generated using [employer] system, please disregard any oddities of phrase or misspellings. Medical Records Medical records reviewed: Yes I reviewed the patient's medical records. Imaging Data Radiologic Study: Imaging: CT Scan Radiologist's impression: Exam(s) a CT:CT abdomen & pelvis w Exam(s) CT ABDOMEN PELVIS W EXAM: CT ABDOMEN PELVIS W CLINICAL HISTORY: RLQ abd Pain, fever, vomiting, recent Appendectomy. TECHNIQUE: Imaging Protocol: Axial computed tomography images with coronal and sagittal reformatted images were created and reviewed CONTRAST MATERIAL: Intravenous: Omnipaque-350 100cc Oral: None COMPARISON: CT CT ABDOMEN PELVIS W from 04/13/2023 FINDINGS: VISUALIZED LUNG BASES: No nodules nor pleural effusions evident. ABDOMEN: There is no ascites. LIVER: There are no focal hepatic lesions evident. No evidence of intrahepatic abscess, given the recent history here. No dilated intrahepatic ducts. GALLBLADDER/BILIARY: The gallbladder is again noted be surgically absent. CBD diameter slightly prominent but unchanged. PANCREAS: No evidence of pancreatic mass nor dilatation of the pancreatic duct. SPLEEN: Spleen is not enlarged. No obvious intrasplenic lesions. Splenic and portal veins are patent. ADRENALS: There are no significant adrenal masses. KIDNEYS:No cysts evident. No solid renal masses. No calculi nor hydronephrosis.. ABDOMINAL AORTA: Abdominal aorta is not enlarged. LYMPH NODES:There is no retroperitoneal nor paraaortic adenopathy. ABDOMINAL WALL: Findings in the immediate supraumbilical anterior abdominal wall consistent with recent port site. Small fat containing umbilical hernia again noted, unchanged. GI: The appendix is now surgically absent. There is no abnormal streaking nor abscess in the immediate Reina cecal region. Also no evidence of significant diverticular disease. No bowel obstruction. PELVIS: GI: As aboveno evidence of sigmoid diverticulitis. LYMPH NODES: There is no intrapelvic nor inguinal adenopathy. REPRODUCTIVE: There is new cyst in the left adnexa measuring 4 by 3.3 cm, significantly increased in size from 1 week ago and there is small-moderate amount of free fluid in the dependent aspect of the pelvis. There is no enhancement around the periphery of this fluid. Right ovary appears unremarkable. URINARY BLADDER: No calculi nor obvious masses evident OSSEOUS: No fractures and no significant osseous lesions. IMPRESSION: 1. Compared to the prior CT scan of 04/13/2023 there has been interval appendectomy. There is no abnormal streaking nor fluid collection in the immediate vicinity of the right lower quadrant appendix site. However, I note that on the prior study the inflamed appendix was long and hanging down into the low pelvis where there is now a small-moderate size fluid collection which was not previously present. However, there is also now a new prominent left adnexal presumably ovarian cyst measuring 4 x 3.3 cm. This may be responsible for the patient's pain and possibly also responsible for the fluid in the dependent aspect of the pelvis in this patient has had prior hysterectomy. 2. In addition, I am now where that this patient had hysterectomy for endometriosis. Cannot exclude the possibly that this new left adnexal ovarian cyst is an endometrioma. 3. Therefore, differential diagnosis for the new moderate amount of fluid in the dependent aspect of the pelvis is either related to the left ovarian cyst or endometrioma or purulent fluid from prior inflamed appendix 1 week ago. 4. Correlation with surgical report from the appendectomy is recommended. Lab Data Lab results reviewed: Yes I reviewed the patient's lab results. Labs: 04/20/23 12:00 Blood Blood Culture - Pending 04/20/23 11:41 Blood Blood Culture - Pending Laboratory Tests Range/Units 04/20/23 11:41 WBC (4.4-10.8) 10^3/uL 7.86 RBC (3.93-5.22) 10^6/uL 4.67 Hgb (11.2-15.7) g/dL 15.6 Hct (36.0-46.0) % 44.9 MCV (80-95) fL 96 H MCH (27.0-33.0) pg 33.4 H MCHC (32.0-36.0) % 34.7 RDW (11.7-14.6) % 12.9 Plt Count (130-400) 10^3/uL 219 MPV (8.0-11.0) fL 9.7 Immature Gran % 0.6 Neutrophils % 63.6 Lymphocytes % 26.7 Monocytes % 6.6 Eosinophils % 1.9 Basophils % 0.6 Nucleated RBC % (0.0-0.3) % 0.0 Absolute Neutrophils (1.2-6.7) 10^3/uL 4.99 Absolute Lymphocytes (1.2-3.4) 10^3/uL 2.10 Absolute Monocytes (0.1-0.8) 10^3/uL 0.52 Absolute Eosinophils (0.0-0.7) 10^3/uL 0.15 Absolute Basophils (0.0-0.2) 10^3/uL 0.05 VBG Lactate (0.6-1.4) mmol/L 1.3 Sodium (136-145) mmol/L 140 Potassium (3.5-5.1) mmol/L 4.3 Chloride (98-107) mmol/L 103 Carbon Dioxide (21.0-32.0) mmol/L 27.8 Anion Gap (3-11) mmol/L 9.2 BUN (7-18) mg/dL 12 Creatinine (0.55-1.02) mg/dL 0.7 Est GFR (CKD-EPI 2020) (mL/min/1.73m2) 114.88 Glucose (74-106) mg/dL 106 Calcium (8.5-10.1) mg/dL 9.0 Magnesium (1.8-2.4) mg/dL 2.1 Total Bilirubin (0.2-1.0) mg/dL 0.3 AST (15-37) U/L 11 L ALT (14-59) U/L 26 Alkaline Phosphatase (46-116) U/L 88 Total Protein (6.4-8.2) g/dL 7.8 Albumin (3.4-5.0) g/dL 4.0 Lipase (16-77) U/L 74 Quality:SDOH Health Related Social Needs: Health related social needs details no reported proble ms. [place] All Active Problems (Updated 04/20/23 @ 14:31 by Marina Moe NP) Cyst of left ovary (Acute) Abdominal pain (Acute) Breast pain, left (Acute) Unspecified open wound of left breast, initial encounter (Acute) Diarrhea (Acute) Palpable mass of soft tissue of knee (Acute) Low HDL (under 40) (Acute) Obesity without serious comorbidity (Acute) Hidradenitis suppurativa (Acute) bilateral, managed [place] [facility] [place]. Pending Humira start. [facility] [place]. Bilateral ovarian cysts (Chronic) seen on multiple imaging studies Loin pain hematuria syndrome (Acute) never officially diagnosed by lodge sales associate Lymphedema of left lower extremity (Chronic) Anxiety (Acute 02/11/13) panic Medical History (Updated 04/20/23 @ 14:31 by Marina Moe NP) Anesthesia complication Patient with severe bradycardia with sugammadex reversal requiring compressions History of tobacco abuse quit 01/2022 History of renal calculi Endometriosis, unspecified LAPROSCOPY 2009 hysterect 2019 on OC for control Hepatomegaly Vitamin D deficiency Anemia Hepatic steatosis Surgical History (Updated 04/15/23 @ 00:01 by ZACKARY KWONG) S/P laparoscopic appendectomy S/P laparoscopy (2009) stage 1 endometriosis S/P laparoscopic assisted vaginal hysterectomy (LAVH) ovaries intact Hx of hand surgery L hand, pt. reports nerves were fixed Status post endovenous radiofrequency ablation (RFA) of saphenous vein for venous insufficiency 09/06/2018 wisdom teeth extraction Extracorporeal shock wave lithotripsy EGD - MAC Family History Mother Diabetes Heart disease Hyperlipidemia Father Colon cancer Heart disease Hyperlipidemia Sister Hyperlipidemia Grandfather Diabetes Grandfather Diabetes Hyperlipidemia Asthma Grandmother Diabetes Personal history of malignant neoplasm Breast Heart disease Hyperlipidemia Grandmother No problems noted. 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 Pets and animals: Yes Pets and animals: dog(s) Sexually active: Yes Do you think of yourself as: straight/heterosexual Current gender identity: female What is your relationship status?: never How often do you talk on the phone with friends or family?: three or more times per week How often do you get together with friends or relatives?: once per week How often do you attend jain or muslim services?: 1-3 times per year Do you belong to any clubs or organized social groups?: no Panel score (0-1 are the most socially isolated patients): 1 What type of physical activity do you participate in: other Duration: > 90 minutes/day Frequency: 5-6 times per week Melida/Mosque: None Do you feel safe at home: Yes Do you feel safe in your relationship?: Yes Discharge Plan Disposition Patient Disposition: Home Condition: Stable Discharge Details Clinical Impression: Abdominal pain, Cyst of left ovary Primary Care Provider: Unknown,Unknown ED Provider: Marina Moe Home Meds and New Rx's Prescriptions: Continued sertraline 50 mg tablet 50 mg PO HS Qty: 90 3RF trazodone 100 mg tablet 100 mg PO HS Qty: 90 4RF ondansetron 4 mg tablet,disintegrating 4 mg PO Q6H PRN (Reason: nausea and vomiting) Qty: 30 0RF lidocaine 5 % ointment 1 applic topical BID PRN (Reason: pain) Qty: 50 0RF oxycodone-acetaminophen [Percocet] 5-325 mg tablet 1 tab PO Q8H MDD 3 tabs PRN (Reason: pain) Qty: 9 0RF Rx Instructions: Take 1 tablet by mouth up to every 8 hours if needed for severe pain. triamcinolone acetonide 0.1 % cream 1 applic topical BID PRN clindamycin phosphate 1 % gel, once daily 1 applic topical DAILY PRN ibuprofen 800 mg tablet 800 mg PO Q8H PRN (Reason: pain) Qty: 30 1RF Saccharomyces boulardii [Florastor] 250 mg capsule 250 mg PO BID Qty: 14 0RF Discharge Instructions Instructions: Ovarian Cyst (ED), Abdominal Pain (ED) Additional Instructions: No evidence of infection or fluid collection from the surgery. You do have a left ovarian cyst which may be the cause of your pain. Please follow-up with [facility] or women's wellness regarding this ovarian cyst. Please keep your follow-up appointment with surgery on April 26. I was able to talk with Dr. Gonzalez who was able to view the CT images. Please take Ibuprofen with food every 4-6 hours as needed for pain and swelling. You may also apply heating pads to your abdomen. Take the nausea medication as directed. Referrals: [facility] [Provider Group] - 2 days (Call for an appointment regarding ovarian cyst) Herbert Gonzalez MD [ [facility] STAFF PHYSICIAN] - 5 days Discharge Data Discharge Date/Time-TO BE ENTERED AT DEPARTURE: 04/20/23 14:55
[2023-04-20 12:41] VITALS: TEMP 37.5
[2023-04-20] MEDS: MORPHine 4 MG/ML SYR IVP (12:41)
[2023-04-20] MEDS: Omnipaque 350 MG/ML 500 ML BTL-Imaging package 100 ML IJ (13:16)
[2023-04-20] MEDS: MORPHine 10 MG/ML VIAL 2 MG IVP (14:21)
== END 2023-04-20 14:55 | disposition home or self-care (01) ==
PROVIDERS: Emergency Provider Registered Nurse Emergency
DX: R10.31 Right lower quadrant pain (principal); N83.202 Unspecified ovarian cyst, left side; Z98.890 Other specified postprocedural states; Z90.49 Acquired absence of other specified parts of digestive tract; Z87.891 Personal history of nicotine dependence
CPT/HCPCS: 36415; 80053; 83690; 87040; 96361; 96374; 96375; 96376; 99285; 74177; 81003; 83605; 83735; 85025; 99284; J2270; J2405

== ENCOUNTER 2023-05-07 08:03 | Emergency (ER) | payer MEDICAID, SELFPAY ==
[2023-05-07 08:05] VITALS: BP 158/92; PULSE 77; RESP 15; TEMP 36.7; O2SAT 99
[2023-05-07 08:10] VITALS: BP 158/92; PULSE 77; RESP 15; TEMP 36.7; O2SAT 99
--- NOTE | 2023-05-07 08:21 | ED.GENADUL_ITS ---
HPI General Mode of arrival: ambulatory . Date/Time Provider Initiated Documentation: 05/07/23 08:04 . Limitations to Documentation: no limitations . Information obtained by: patient and RN notes reviewed . History of Present Illness 37 year old F presents to the emergency department with the chief complaint of Incisional infection, described as moderate, and is localized to the abdomen. Patient reports no radiation. Patient started experiencing this day(s) (4) and it has been constant. No relieving factors improve symptom(s), No exacerbating factors reported . Patient did receive the following treatments prior to arrival, NSAID Related Data Home Medications Medication Instructions Recorded Confirmed ibuprofen 800 mg tablet 800 mg PO Q8H PRN pain #30 tabs 02/27/20 05/07/23 lidocaine 5 % topical ointment 1 applic topical BID PRN pain #50 01/13/22 05/07/23 grams Saccharomyces boulardii 250 mg 250 mg PO BID #14 caps 05/01/22 05/07/23 capsule (Florastor) sertraline 50 mg tablet 50 mg PO HS #90 tabs 05/04/22 05/07/23 trazodone 100 mg tablet 100 mg PO HS #90 tabs 05/04/22 05/07/23 ondansetron 4 mg disintegrating 4 mg PO Q6H PRN nausea and 12/07/22 05/07/23 tablet vomiting #30 tabs clindamycin phosphate 1 % topical 1 applic topical DAILY PRN 04/13/23 05/07/23 gel, once daily triamcinolone acetonide 0.1 % 1 applic topical BID PRN 04/13/23 05/07/23 topical cream oxycodone-acetaminophen 5 mg-325 1 tab PO Q8H PRN pain #9 tabs 04/14/23 05/07/23 mg tablet (Percocet) sulfamethoxazole 800 1 tab PO BID #14 tabs 05/07/23 mg-trimethoprim 160 mg tablet (Bactrim DS) Previous Rx's Medication Instructions Recorded ibuprofen 800 mg tablet 800 mg PO Q8H PRN pain #30 tabs 02/27/20 lidocaine 5 % topical ointment 1 applic topical BID PRN pain #50 01/13/22 grams Saccharomyces boulardii 250 mg 250 mg PO BID #14 caps 05/01/22 capsule (Florastor) sertraline 50 mg tablet 50 mg PO HS #90 tabs 05/04/22 trazodone 100 mg tablet 100 mg PO HS #90 tabs 05/04/22 ondansetron 4 mg disintegrating 4 mg PO Q6H PRN nausea and 12/07/22 tablet vomiting #30 tabs oxycodone-acetaminophen 5 mg-325 1 tab PO Q8H PRN pain #9 tabs 04/14/23 mg tablet (Percocet) sulfamethoxazole 800 1 tab PO BID #14 tabs 05/07/23 mg-trimethoprim 160 mg tablet (Bactrim DS) Allergies Allergy/AdvReac Type Severity Reaction Status Date / Time cyclobenzaprine Allergy Intermediate Hives Unverified 05/07/23 08:22 [From Flexeril] cephalexin [Cephalexin] AdvReac Severe Abdominal Verified 05/07/23 08:22 Cramps sugammadex AdvReac Severe Other (See Verified 05/07/23 08:22 Comment) vancomycin AdvReac Severe diarrhea, Verified 05/07/23 08:22 redness acetaminophen AdvReac Intermediate Other (See Verified 05/07/23 08:22 Comment) Cephalosporins AdvReac Intermediate Diarrhea Verified 05/07/23 08:22 codeine phosphate AdvReac Intermediate Vomiting Verified 05/07/23 08:22 [From Tylenol-Codeine #3] ketorolac [From Toradol] AdvReac Intermediate Nausea Verified 05/07/23 08:22 silver AdvReac Intermediate Skin Rash Verified 05/07/23 08:22 [From Tegaderm AG Mesh] tramadol AdvReac Intermediate Diarrhea Verified 05/07/23 08:22 General Stated Complaint: Cellulitis HALINA: 3 Review of Systems Constitutional Constitutional: Denies fever(s), Denies malaise and Denies poor appetite Gastrointestinal Gastrointestinal: Reports as per HPI, Denies diarrhea, Reports nausea (Secondary to pain) and Denies vomiting Integumentary/Breasts Skin/Breast: Reports furuncle, Reports erythema, Reports skin pain and Reports skin swelling Exam Const General: cooperative, no acute distress and not ill appearing Orientation: alert, awake and oriented x3 HENMT Mouth: moist mucous membranes Resp Effort & Inspection: normal respiratory effort, able to speak in complete sentences and no respiratory distress GI Inspection: other (Laparoscopic incisions with midline lower incision erythematous) Palpation: soft, not firm and no guarding Neuro General: patient alert, patient awake, patient oriented x3, moves all extremities and no focal motor deficits Course Vital Signs Vital signs: Vital Signs Temperature 36.7 C 05/07/23 08:05 Pulse 77 05/07/23 08:05 Respiratory Rate 15 05/07/23 08:05 Blood Pressure 158/92 H 05/07/23 08:05 Pulse Oximetry 99 05/07/23 08:05 Temperature 36.7 C 05/07/23 08:10 Temperature Source Temporal Artery Scan 05/07/23 08:10 Pulse 77 05/07/23 08:10 Respiratory Rate 15 05/07/23 08:10 Respiratory Effort Normal 05/07/23 08:08 Blood Pressure 158/92 H 05/07/23 08:10 Blood Pressure Position Sitting 05/07/23 08:10 Pulse Oximetry 99 05/07/23 08:10 Oxygen Delivery Method Room Air 05/07/23 08:10 Oxygen Flow Rate 0 05/07/23 08:10 Pain Level 10 05/07/23 08:10 Procedures Abscess I/D Site: Abdomen Sedation/analgesia: None Local Anesthetic: Lidocaine 1% Amount of anesthesia used (mL): 3 Technique: Needle Aspiration Irrigation: No Packing used?: None Medical Decision Making Patient presenting to the emergency department for chief complaint of incisional infection. Patient reports 4 days ago she was riding in a car and started noticing some pain where her pants were rubbing against her incisional site. After this there is a small amount of drainage from the site and over the next couple days increasing redness. Patient states significant amount of pain, nausea, denies all other GI symptoms. Patient did have laparoscopic appendectomy on 04/13 and follow-up on 04/26 with normal appearance of incision sites noted at that time. Physical exam does show erythema surrounding the lower abdominal central laparoscopic insertion site and bedside ultrasound was utilized and very small collection of fluid is noted just below the incisional/insertion site exam is otherwise noncontributory. Spoke with general surgery in regards to incisional infection. Plan to perform needle drainage and sent for culture. Will start patient on antibiotics. patient gave verbal consent to needle drainage. Scant amount of discharge was even able to be expressed. Will place patient on Bactrim and follow-up with general surgery office for reassessment. After discussion of diagnosis and plan of care patient has no further needs, questions, or concerns and states clear understanding to return to the emergency department for any worsening symptoms. This documentation was generated using [employer] dictation system, please disregard any oddities of phrase or misspellings. Quality:SDOH Health Related Social Needs: Health related social needs details no reported proble ms. [place] All Active Problems (Updated 05/07/23 @ 09:00 by Ezequiel Washburn NP) Incisional infection (Acute) Cyst of left ovary (Acute) Abdominal pain (Acute) Breast pain, left (Acute) Unspecified open wound of left breast, initial encounter (Acute) Diarrhea (Acute) Palpable mass of soft tissue of knee (Acute) Low HDL (under 40) (Acute) Obesity without serious comorbidity (Acute) Hidradenitis suppurativa (Acute) bilateral, managed at [facility] derm. Pending Humira start. [facility] did pain clinic referral. Bilateral ovarian cysts (Chronic) seen on multiple imaging studies Loin pain hematuria syndrome (Acute) never officially diagnosed by checker and packer Lymphedema of left lower extremity (Chronic) Anxiety (Acute 02/11/13) panic Medical History Anesthesia complication Patient with severe bradycardia with sugammadex reversal requiring compressions History of tobacco abuse quit 01/2022 History of renal calculi Endometriosis, unspecified LAPROSCOPY 2010 hysterect 2019 on OC for control Hepatomegaly Vitamin D deficiency Anemia Hepatic steatosis Surgical History S/P laparoscopic appendectomy S/P laparoscopy (2009) stage 1 endometriosis S/P laparoscopic assisted vaginal hysterectomy (LAVH) ovaries intact Hx of hand surgery L hand, pt. reports nerves were fixed Status post endovenous radiofrequency ablation (RFA) of saphenous vein for venous insufficiency 09/06/2018 wisdom teeth extraction Extracorporeal shock wave lithotripsy EGD - MAC Family History Mother Diabetes Heart disease Hyperlipidemia Father Colon cancer Heart disease Hyperlipidemia Sister Hyperlipidemia Grandfather Diabetes Grandfather Diabetes Hyperlipidemia Asthma Grandmother Diabetes Personal history of malignant neoplasm Breast Heart disease Hyperlipidemia Grandmother No problems noted. 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 Pets and animals: Yes Pets and animals: dog(s) Sexually active: Yes Do you think of yourself as: straight/heterosexual Current gender identity: female What is your relationship status?: never How often do you talk on the phone with friends or family?: three or more times per week How often do you get together with friends or relatives?: once per week How often do you attend evangelical or taoist services?: 1-3 times per year Do you belong to any clubs or organized social groups?: no Panel score (0-1 are the most socially isolated patients): 1 What type of physical activity do you participate in: other Duration: > 90 minutes/day Frequency: 5-6 times per week Melida/Latter-Day: None Do you feel safe at home: Yes Do you feel safe in your relationship?: Yes Discharge Plan Disposition Patient Disposition: Home Discharge Details Clinical Impression: Incisional infection Primary Care Provider: Peri Garrison ED Provider: Ezequiel Washburn Home Meds and New Rx's Prescriptions: New sulfamethoxazole-trimethoprim [Bactrim DS] 800-160 mg tablet 1 tab PO BID Qty: 14 0RF No Action sertraline 50 mg tablet 50 mg PO HS Qty: 90 3RF trazodone 100 mg tablet 100 mg PO HS Qty: 90 4RF ondansetron 4 mg tablet,disintegrating 4 mg PO Q6H PRN (Reason: nausea and vomiting) Qty: 30 0RF lidocaine 5 % ointment 1 applic topical BID PRN (Reason: pain) Qty: 50 0RF oxycodone-acetaminophen [Percocet] 5-325 mg tablet 1 tab PO Q8H MDD 3 tabs PRN (Reason: pain) Qty: 9 0RF Rx Instructions: Take 1 tablet by mouth up to every 8 hours if needed for severe pain. triamcinolone acetonide 0.1 % cream 1 applic topical BID PRN clindamycin phosphate 1 % gel, once daily 1 applic topical DAILY PRN ibuprofen 800 mg tablet 800 mg PO Q8H PRN (Reason: pain) Qty: 30 1RF Saccharomyces boulardii [Florastor] 250 mg capsule 250 mg PO BID Qty: 14 0RF Discharge Instructions Instructions: Wound Infection (ED) Additional Instructions: Please continue to monitor infection and return for any new or significant worsening of symptoms Please take antibiotics as prescribed and follow-up with general surgery office for reassessment and to ensure that you are appropriately healing. Referrals: [facility] [Provider Group] (Please call the office tomorrow afternoon for arrangement of follow-up appointment) Discharge Data Discharge Date/Time-TO BE ENTERED AT DEPARTURE: 05/07/23 09:10
[2023-05-07] MEDS: Sulfameth/Trimeth DS TAB 1 TAB PO (09:06)
--- NOTE | 2023-05-11 09:15 | W.ED.FU ---
Follow Up Plan: Wound culture growing Staph aureus, pansensitive and sensitive to Bactrim. Patient was started on Bactrim at time of discharge. No change in management.
== END 2023-05-07 09:10 | disposition home or self-care (01) ==
PROVIDERS: Emergency Provider Nurse Practitioner Family; PCP Nurse Practitioner Family
DX: T81.41XA Infection following a procedure, superficial incisional surgical site, initial encounter (principal)
CPT/HCPCS: 10060; 87077; 99283; 87070; 87186; 87205; 99284

== ENCOUNTER 2023-05-22 08:56 | Emergency (ER) | payer MEDICAID, SELFPAY ==
[2023-05-22 08:59] VITALS: BP 169/88; PULSE 85; RESP 17; TEMP 36.8; O2SAT 99
--- NOTE | 2023-05-22 09:13 | ED.GENADUL_ITS ---
Discharge Plan Disposition Patient Disposition: Home Condition: Stable Discharge Details Clinical Impression: Abscess, Hidradenitis suppurativa Primary Care Provider: Veronica Zapata ED Provider: Shaneka Brewer Home Meds and New Rx's Prescriptions: New oxycodone-acetaminophen [Percocet] 5-325 mg tablet 1 tab PO Q8H PRNQty: 10 0RF clindamycin HCl 300 mg capsule 300 mg PO QID 7 Days Qty: 28 0RF No Action sertraline 50 mg tablet 50 mg PO HS Qty: 90 3RF trazodone 100 mg tablet 100 mg PO HS Qty: 90 4RF ondansetron 4 mg tablet,disintegrating 4 mg PO Q6H PRN (Reason: nausea and vomiting) Qty: 30 0RF lidocaine 5 % ointment 1 applic topical BID PRN (Reason: pain) Qty: 50 0RF oxycodone-acetaminophen [Percocet] 5-325 mg tablet 1 tab PO Q8H MDD 3 tabs PRN (Reason: pain) Qty: 9 0RF Rx Instructions: Take 1 tablet by mouth up to every 8 hours if needed for severe pain. triamcinolone acetonide 0.1 % cream 1 applic topical BID PRN clindamycin phosphate 1 % gel, once daily 1 applic topical DAILY PRN ibuprofen 800 mg tablet 800 mg PO Q8H PRN (Reason: pain) Qty: 30 1RF Saccharomyces boulardii [Florastor] 250 mg capsule 250 mg PO BID Qty: 14 0RF sulfamethoxazole-trimethoprim [Bactrim DS] 800-160 mg tablet 1 tab PO BID Qty: 14 0RF Discharge Instructions Instructions: Abscess (ED) Referrals: Veronica Zapata [Primary Care Provider] - 1 week Discharge Data Discharge Physician: Shaneka Brewer [facility] General Date/Time Provider Initiated Documentation: 05/22/23 09:06 . HPI Narrative: 37-year-old female with history of hidradenitis presents for evaluation of 2 abscesses. Patient has 2 small abscesses to her left axilla. No drainage. She believes she has had some low-grade fevers at home. She had recent infection to abdomen which was treated with Bactrim and has resolved. Related Data Home Medications Medication Instructions Recorded Confirmed ibuprofen 800 mg tablet 800 mg PO Q8H PRN pain #30 tabs 02/27/20 05/10/23 lidocaine 5 % topical ointment 1 applic topical BID PRN pain #50 01/13/22 05/10/23 grams Saccharomyces boulardii 250 mg 250 mg PO BID #14 caps 05/01/22 05/10/23 capsule (Florastor) sertraline 50 mg tablet 50 mg PO HS #90 tabs 05/04/22 05/10/23 trazodone 100 mg tablet 100 mg PO HS #90 tabs 05/04/22 05/10/23 ondansetron 4 mg disintegrating 4 mg PO Q6H PRN nausea and 12/07/22 05/10/23 tablet vomiting #30 tabs clindamycin phosphate 1 % topical 1 applic topical DAILY PRN 04/13/23 05/10/23 gel, once daily triamcinolone acetonide 0.1 % 1 applic topical BID PRN 04/13/23 05/10/23 topical cream oxycodone-acetaminophen 5 mg-325 1 tab PO Q8H PRN pain #9 tabs 04/14/23 05/10/23 mg tablet (Percocet) sulfamethoxazole 800 1 tab PO BID #14 tabs 05/07/23 05/10/23 mg-trimethoprim 160 mg tablet (Bactrim DS) clindamycin HCl 300 mg capsule 300 mg PO QID 7 days #28 caps 05/22/23 oxycodone-acetaminophen 5 mg-325 1 tab PO Q8H PRN #10 tabs 05/22/23 mg tablet (Percocet) Previous Rx's Medication Instructions Recorded ibuprofen 800 mg tablet 800 mg PO Q8H PRN pain #30 tabs 02/27/20 lidocaine 5 % topical ointment 1 applic topical BID PRN pain #50 01/13/22 grams Saccharomyces boulardii 250 mg 250 mg PO BID #14 caps 05/01/22 capsule (Florastor) sertraline 50 mg tablet 50 mg PO HS #90 tabs 05/04/22 trazodone 100 mg tablet 100 mg PO HS #90 tabs 05/04/22 ondansetron 4 mg disintegrating 4 mg PO Q6H PRN nausea and 12/07/22 tablet vomiting #30 tabs oxycodone-acetaminophen 5 mg-325 1 tab PO Q8H PRN pain #9 tabs 04/14/23 mg tablet (Percocet) sulfamethoxazole 800 1 tab PO BID #14 tabs 05/07/23 mg-trimethoprim 160 mg tablet (Bactrim DS) clindamycin HCl 300 mg capsule 300 mg PO QID 7 days #28 caps 05/22/23 oxycodone-acetaminophen 5 mg-325 1 tab PO Q8H PRN #10 tabs 05/22/23 mg tablet (Percocet) Allergies Allergy/AdvReac Type Severity Reaction Status Date / Time cyclobenzaprine Allergy Intermediate Hives Unverified 05/10/23 08:15 [From Flexeril] cephalexin [Cephalexin] AdvReac Severe Abdominal Verified 05/10/23 08:15 Cramps sugammadex AdvReac Severe Other (See Verified 05/10/23 08:15 Comment) vancomycin AdvReac Severe diarrhea, Verified 05/10/23 08:15 redness acetaminophen AdvReac Intermediate Other (See Verified 05/10/23 08:15 Comment) Cephalosporins AdvReac Intermediate Diarrhea Verified 05/10/23 08:15 codeine phosphate AdvReac Intermediate Vomiting Verified 05/10/23 08:15 [From Tylenol-Codeine #3] ketorolac [From Toradol] AdvReac Intermediate Nausea Verified 05/10/23 08:15 silver AdvReac Intermediate Skin Rash Verified 05/10/23 08:15 [From Tegaderm AG Mesh] tramadol AdvReac Intermediate Diarrhea Verified 05/10/23 08:15 General Stated Complaint: RashLesion HALINA: 3 Review of Systems Narrative: Remainder of review of systems otherwise negative except for as noted in HPI x 5. Exam Narrative Exam Narrative: General: non-toxic, no respiratory distress, comfortable HEENT: normocephalic, atraumatic, lids and lashes normal, PERRL, EOMI, anicteric sclera, no conjunctival injection, moist oral mucosa Musculoskeletal: full range of motion of arms and legs, no tenderness to palpation. no clubbing, cyanosis, or edema Neurologic: appropriate for age, strength normal Psych: alert and oriented Skin: 2 half centimeter nodules to left axilla which are erythematous and tender to touch, no fluctuance, no drainage, otherwise no petechiae, no lesions, warm and dry Course Vital Signs Vital signs: Vital Signs Temperature 36.8 C 05/22/23 08:59 Pulse 85 05/22/23 08:59 Respiratory Rate 17 05/22/23 08:59 Blood Pressure 169/88 H 05/22/23 08:59 Pulse Oximetry 99 05/22/23 08:59 Temperature 36.8 C 05/22/23 08:59 Temperature Source Oral 05/22/23 08:59 Pulse 85 05/22/23 08:59 Respiratory Rate 17 05/22/23 08:59 Blood Pressure 169/88 H 05/22/23 08:59 Blood Pressure Position Sitting 05/22/23 08:59 Pulse Oximetry 99 05/22/23 08:59 Oxygen Delivery Method Room Air 05/22/23 08:59 Oxygen Flow Rate 0 05/22/23 08:59 Procedures Abscess I/D Site: Upper Extremity (Left axilla) Side (if applicable): Left Sedation/analgesia: None Local Anesthetic: Lidocaine 1% Amount of anesthesia used (mL): 5 Technique: Incised with #11 Blade Amount of fluid expressed (mL): 0 Irrigation: Yes Packing used?: None Complications: Pain Medical Decision Making 37-year-old female with history of hidradenitis presents for 2 abscesses to left axilla. Will I&D. Patient started on Bactrim. He has not patient did receive her first dose of Bactrim and then felt hot and flushed and vomited. She has taken Bactrim recently without any issues. She is concerned that this may be an allergic reaction. Will switch her further antibiotics to clindamycin which she has tolerated in the past without difficulty. I&D was performed. Patient discharged home. Quality:[facility] Health Related Social Needs: Health related social needs details no reported proble [facility] All Active Problems (Updated 05/22/23 @ 09:20 by Shaneka Brewer MD) Abscess (Acute) Incisional infection (Acute) Breast pain, left (Acute) Unspecified open wound of left breast, initial encounter (Acute) Diarrhea (Acute) Palpable mass of soft tissue of knee (Acute) Low HDL (under 40) (Acute) Obesity without serious comorbidity (Acute) Hidradenitis suppurativa (Acute) bilateral, managed at [facility] [place]. Pending Humira start. [facility] did pain clinic referral. Bilateral ovarian cysts (Chronic) seen on multiple imaging studies Loin pain hematuria syndrome (Acute) never officially diagnosed by basketball assembler Lymphedema of left lower extremity (Chronic) Anxiety (Acute 02/11/13) panic Medical History Anesthesia complication Patient with severe bradycardia with sugammadex reversal requiring compressions History of tobacco abuse quit 01/2022 History of renal calculi Endometriosis, unspecified LAPROSCOPY 2009 hysterect 2019 on OC for control Hepatomegaly Vitamin D deficiency Anemia Hepatic steatosis Surgical History S/P laparoscopic appendectomy S/P laparoscopy (2009) stage 1 endometriosis S/P laparoscopic assisted vaginal hysterectomy (LAVH) ovaries intact Hx of hand surgery L hand, pt. reports nerves were fixed Status post endovenous radiofrequency ablation (RFA) of saphenous vein for venous insufficiency 09/06/2018 wisdom teeth extraction Extracorporeal shock wave lithotripsy EGD - MAC Family History Mother Diabetes Heart disease Hyperlipidemia Father Colon cancer Heart disease Hyperlipidemia Sister Hyperlipidemia Grandfather Diabetes Grandfather Diabetes Hyperlipidemia Asthma Grandmother Diabetes Personal history of malignant neoplasm Breast Heart disease Hyperlipidemia Grandmother No problems noted. 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 Pets and animals: Yes Pets and animals: dog(s) Sexually active: Yes Do you think of yourself as: straight/heterosexual Current gender identity: female What is your relationship status?: never How often do you talk on the phone with friends or family?: three or more times per week How often do you get together with friends or relatives?: once per week How often do you attend tenriism or jehovah's witness services?: 1-3 times per year Do you belong to any clubs or organized social groups?: no Panel score (0-1 are the most socially isolated patients): 1 What type of physical activity do you participate in: other Duration: > 90 minutes/day Frequency: 5-6 times per week Melida/Tenriism: None Do you feel safe at home: Yes Do you feel safe in your relationship?: Yes
[2023-05-22] MEDS: Sulfameth/Trimeth DS TAB 1 TAB PO (09:19)
[2023-05-22] MEDS: Lidocaine 1% Pres-Free 5 ML VIAL IJ (09:26)
[2023-05-22] MEDS: Ondansetron O.D.T. 4 MG TABEF PO (09:34)
== END 2023-05-22 10:52 | disposition home or self-care (01) ==
LOC: ER 09:44
PROVIDERS: Emergency Provider Emergency Medicine Emergency Medical Services; PCP Nurse Practitioner Family
DX: M79.622 Pain in left upper arm (principal); L02.91 Cutaneous abscess, unspecified
CPT/HCPCS: 10060; J2003

== ENCOUNTER 2023-05-30 13:48 | Emergency (ER) | payer MEDICAID, SELFPAY ==
[2023-05-30 14:07] VITALS: BP 156/98; PULSE 82; RESP 16; TEMP 37.1; O2SAT 99
--- NOTE | 2023-05-30 14:54 | ED.GENADUL_ITS ---
Discharge Plan Disposition Patient Disposition: Home Condition: Improving Discharge Details Clinical Impression: Hydradenitis Primary Care Provider: Veronica Zapata ED Provider: Gualberto Hutton Home Meds and New Rx's Prescriptions: New clindamycin HCl 300 mg capsule 300 mg PO TID 5 Days Qty: 15 0RF No Action sertraline 50 mg tablet 50 mg PO HS Qty: 90 3RF trazodone 100 mg tablet 100 mg PO HS Qty: 90 4RF ondansetron 4 mg tablet,disintegrating 4 mg PO Q6H PRN (Reason: nausea and vomiting) Qty: 30 0RF lidocaine 5 % ointment 1 applic topical BID PRN (Reason: pain) Qty: 50 0RF oxycodone-acetaminophen [Percocet] 5-325 mg tablet 1 tab PO Q8H MDD 3 tabs PRN (Reason: pain) Qty: 9 0RF Rx Instructions: Take 1 tablet by mouth up to every 8 hours if needed for severe pain. triamcinolone acetonide 0.1 % cream 1 applic topical BID PRN clindamycin phosphate 1 % gel, once daily 1 applic topical DAILY PRN oxycodone-acetaminophen [Percocet] 5-325 mg tablet 1 tab PO Q8H PRNQty: 10 0RF ibuprofen 800 mg tablet 800 mg PO Q8H PRN (Reason: pain) Qty: 30 1RF Saccharomyces boulardii [Florastor] 250 mg capsule 250 mg PO BID Qty: 14 0RF sulfamethoxazole-trimethoprim [Bactrim DS] 800-160 mg tablet 1 tab PO BID Qty: 14 0RF Discharge Instructions Instructions: Incision and Drainage (ED) HPI General Date/Time Provider Initiated Documentation: 05/30/23 13:50 . HPI Narrative: 37-year-old female history of hidradenitis suppurativa presents with painful abscesses to bilateral axilla and a lesion on her right thigh over the last several days. No fevers no chills or systemic signs of illness. Patient Dors that she has required I&D in the past. Related Data Home Medications Medication Instructions Recorded Confirmed ibuprofen 800 mg tablet 800 mg PO Q8H PRN pain #30 tabs 02/27/20 05/10/23 lidocaine 5 % topical ointment 1 applic topical BID PRN pain #50 01/13/22 05/10/23 grams Saccharomyces boulardii 250 mg 250 mg PO BID #14 caps 05/01/22 05/10/23 capsule (Florastor) sertraline 50 mg tablet 50 mg PO HS #90 tabs 05/04/22 05/10/23 trazodone 100 mg tablet 100 mg PO HS #90 tabs 05/04/22 05/10/23 ondansetron 4 mg disintegrating 4 mg PO Q6H PRN nausea and 12/07/22 05/10/23 tablet vomiting #30 tabs clindamycin phosphate 1 % topical 1 applic topical DAILY PRN 04/13/23 05/10/23 gel, once daily triamcinolone acetonide 0.1 % 1 applic topical BID PRN 04/13/23 05/10/23 topical cream oxycodone-acetaminophen 5 mg-325 1 tab PO Q8H PRN pain #9 tabs 04/14/23 05/10/23 mg tablet (Percocet) sulfamethoxazole 800 1 tab PO BID #14 tabs 05/07/23 05/10/23 mg-trimethoprim 160 mg tablet (Bactrim DS) oxycodone-acetaminophen 5 mg-325 1 tab PO Q8H PRN #10 tabs 05/22/23 mg tablet (Percocet) clindamycin HCl 300 mg capsule 300 mg PO TID 5 days #15 caps 05/30/23 Previous Rx's Medication Instructions Recorded ibuprofen 800 mg tablet 800 mg PO Q8H PRN pain #30 tabs 02/27/20 lidocaine 5 % topical ointment 1 applic topical BID PRN pain #50 01/13/22 grams Saccharomyces boulardii 250 mg 250 mg PO BID #14 caps 05/01/22 capsule (Florastor) sertraline 50 mg tablet 50 mg PO HS #90 tabs 05/04/22 trazodone 100 mg tablet 100 mg PO HS #90 tabs 05/04/22 ondansetron 4 mg disintegrating 4 mg PO Q6H PRN nausea and 12/07/22 tablet vomiting #30 tabs oxycodone-acetaminophen 5 mg-325 1 tab PO Q8H PRN pain #9 tabs 04/14/23 mg tablet (Percocet) sulfamethoxazole 800 1 tab PO BID #14 tabs 05/07/23 mg-trimethoprim 160 mg tablet (Bactrim DS) oxycodone-acetaminophen 5 mg-325 1 tab PO Q8H PRN #10 tabs 05/22/23 mg tablet (Percocet) clindamycin HCl 300 mg capsule 300 mg PO TID 5 days #15 caps 05/30/23 Allergies Allergy/AdvReac Type Severity Reaction Status Date / Time cyclobenzaprine Allergy Intermediate Hives Unverified 05/30/23 14:11 [From Flexeril] cephalexin [Cephalexin] AdvReac Severe Abdominal Verified 05/30/23 14:11 Cramps sugammadex AdvReac Severe Other (See Verified 05/30/23 14:11 Comment) vancomycin AdvReac Severe diarrhea, Verified 05/30/23 14:11 redness acetaminophen AdvReac Intermediate Other (See Verified 05/30/23 14:11 Comment) Cephalosporins AdvReac Intermediate Diarrhea Verified 05/30/23 14:11 codeine phosphate AdvReac Intermediate Vomiting Verified 05/30/23 14:11 [From Tylenol-Codeine #3] ketorolac [From Toradol] AdvReac Intermediate Nausea Verified 05/10/23 08:15 silver AdvReac Intermediate Skin Rash Verified 05/30/23 14:11 [From Tegaderm AG Mesh] sulfamethoxazole AdvReac Intermediate Skin Rash Verified 05/30/23 14:11 [From Bactrim] tramadol AdvReac Intermediate Diarrhea Verified 05/30/23 14:11 trimethoprim [From Bactrim] AdvReac Intermediate Skin Rash Verified 05/30/23 14:11 General Stated Complaint: Cellulitis HALINA: 3 Review of Systems Narrative: Review of Systems Constitutional: negative Eyes: negative ENT: negative Cardiovascular: negative Respiratory: negative Gastrointestinal: negative : negative Musculoskeletal: negative Skin: Abscesses Neurologic: negative Psych: negative Exam Narrative Exam Narrative: Physical Examination General: alert, awake, cooperative, resting comfortably, no acute distress HEENT: normocephalic, atraumatic Neck: supple, trachea midline; full ROM Chest: normal to inspection Respiratory: normal respiratory effort, speaking in full sentences Skin: no lesions, rashes or trauma appreciated Neuro: AAOx3, normal speech, moving all extremities Extremities: 1 cm area of induration under right axilla mildly fluctuant no erythema, 1 cm area of induration under left axilla mildly fluctuant no erythema, localized area of erythema approximately 2 cm in diameter to right thigh nonfluctuant nonpurulent Course Vital Signs Vital signs: Vital Signs Temperature 37.1 C 05/30/23 14:07 Pulse 82 05/30/23 14:07 Respiratory Rate 16 05/30/23 14:07 Blood Pressure 156/98 H 05/30/23 14:07 Pulse Oximetry 99 05/30/23 14:07 Temperature 37.1 C 05/30/23 14:07 Pulse 82 05/30/23 14:07 Respiratory Rate 16 05/30/23 14:07 Blood Pressure 156/98 H 05/30/23 14:07 Pulse Oximetry 99 05/30/23 14:07 Pain Level 10 05/30/23 14:07 Procedures Abscess I/D Site: Other (Bilateral axilla) Side (if applicable): Left and Right Local Anesthetic: Lidocaine 1% Amount of anesthesia used (mL): 4 Technique: Incised with #11 Blade Amount of fluid expressed (mL): 1 Packing used?: None Medical Decision Making 37-year-old female presents with painful abscesses to bilateral axilla and skin lesion to right thigh. Axillary lesions likely small abscesses approximately 1 cm in diameter each, lesion on thigh likely localized area of cellulitis given no fluctuance no purulence. No systemic signs of illness such as fevers or chills. Patient is extensive medication allergy limiting analgesia options. Will provide topical L ET gel, localized lidocaine and I&D of axillary abscesses, will start empiric clindamycin. 15: 53 bilateral axillary abscesses incised, right axillary lesion more chronic scar tissue than true abscess, left axillary lesion with small amount of purulent material expressed no packing applied, patient started on clindamycin. Home care instructions and return precautions given. Patient follows with dermatology and general surgery Quality:SDOH Health Related Social Needs: Health related social needs details no reported proble [facility] All Active Problems (Updated 05/30/23 @ 15:54 by Gualberto Hutton MD) Hydradenitis (Acute) Abscess (Acute) Incisional infection (Acute) Breast pain, left (Acute) Unspecified open wound of left breast, initial encounter (Acute) Diarrhea (Acute) Palpable mass of soft tissue of knee (Acute) Low HDL (under 40) (Acute) Obesity without serious comorbidity (Acute) Hidradenitis suppurativa (Acute) bilateral, managed at [facility] derm. Pending Humira start. [facility] did pain clinic referral. Bilateral ovarian cysts (Chronic) seen on multiple imaging studies Loin pain hematuria syndrome (Acute) never officially diagnosed by cop breaker Lymphedema of left lower extremity (Chronic) Anxiety (Acute 02/11/13) panic Medical History Anesthesia complication Patient with severe bradycardia with sugammadex reversal requiring compressions History of tobacco abuse quit 01/2022 History of renal calculi Endometriosis, unspecified LAPROSCOPY 2009 hysterect 2019 on OC for control Hepatomegaly Vitamin D deficiency Anemia Hepatic steatosis Surgical History S/P laparoscopic appendectomy S/P laparoscopy (2009) stage 1 endometriosis S/P laparoscopic assisted vaginal hysterectomy (LAVH) ovaries intact Hx of hand surgery L hand, pt. reports nerves were fixed Status post endovenous radiofrequency ablation (RFA) of saphenous vein for venous insufficiency 09/06/2018 wisdom teeth extraction Extracorporeal shock wave lithotripsy EGD - MAC Family History Mother Diabetes Heart disease Hyperlipidemia Father Colon cancer Heart disease Hyperlipidemia Sister Hyperlipidemia Grandfather Diabetes Grandfather Diabetes Hyperlipidemia Asthma Grandmother Diabetes Personal history of malignant neoplasm Breast Heart disease Hyperlipidemia Grandmother No problems noted. 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 Pets and animals: Yes Pets and animals: dog(s) Sexually active: Yes Do you think of yourself as: straight/heterosexual Current gender identity: female What is your relationship status?: never How often do you talk on the phone with friends or family?: three or more times per week How often do you get together with friends or relatives?: once per week How often do you attend scientologist or jehovah's witness services?: 1-3 times per year Do you belong to any clubs or organized social groups?: no Panel score (0-1 are the most socially isolated patients): 1 What type of physical activity do you participate in: other Duration: > 90 minutes/day Frequency: 5-6 times per week Melida/Restorationism: None Do you feel safe at home: Yes Do you feel safe in your relationship?: Yes
[2023-05-30] MEDS: Clindamycin 150 MG CAP 450 MG PO (15:03)
[2023-05-30] MEDS: Lidocaine/Epinephri/Tetracaine Topical Gel 3 ML TP (15:03)
== END 2023-05-30 16:29 | disposition home or self-care (01) ==
PROVIDERS: Emergency Provider Emergency Medicine; PCP Nurse Practitioner Family
DX: L73.2 Hidradenitis suppurativa; Z79.899 Other long term (current) drug therapy
CPT/HCPCS: 10061; 99282; 99283

== ENCOUNTER 2023-06-04 12:47 | Emergency (ER) | payer MEDICAID, SELFPAY ==
[2023-06-04 12:49] VITALS: BP 143/95; PULSE 102; RESP 16; TEMP 37.2; O2SAT 100
--- NOTE | 2023-06-04 13:19 | ED.GENADUL_ITS ---
Discharge Plan Disposition Patient Disposition: Home Condition: Stable Discharge Details Clinical Impression: Hidradenitis suppurativa Primary Care Provider: Veronica Zapata ED Provider: Austin Quan Home Meds and New Rx's Prescriptions: New doxycycline hyclate 100 mg tablet 100 mg PO BID Qty: 14 0RF Continued sertraline 50 mg tablet 50 mg PO HS Qty: 90 3RF trazodone 100 mg tablet 100 mg PO HS Qty: 90 4RF ondansetron 4 mg tablet,disintegrating 4 mg PO Q6H PRN (Reason: nausea and vomiting) Qty: 30 0RF lidocaine 5 % ointment 1 applic topical BID PRN (Reason: pain) Qty: 50 0RF oxycodone-acetaminophen [Percocet] 5-325 mg tablet 1 tab PO Q8H MDD 3 tabs PRN (Reason: pain) Qty: 9 0RF Rx Instructions: Take 1 tablet by mouth up to every 8 hours if needed for severe pain. triamcinolone acetonide 0.1 % cream 1 applic topical BID PRN clindamycin phosphate 1 % gel, once daily 1 applic topical DAILY PRN oxycodone-acetaminophen [Percocet] 5-325 mg tablet 1 tab PO Q8H PRNQty: 10 0RF ibuprofen 800 mg tablet 800 mg PO Q8H PRN (Reason: pain) Qty: 30 1RF Saccharomyces boulardii [Florastor] 250 mg capsule 250 mg PO BID Qty: 14 0RF sulfamethoxazole-trimethoprim [Bactrim DS] 800-160 mg tablet 1 tab PO BID Qty: 14 0RF Discharge Instructions Additional Instructions: Follow-up with your primary care provider within 1 to 2 weeks If you feel more ill, have severe worsening pain or high fevers return to the emergency department HPI General Mode of arrival: ambulatory . Date/Time Provider Initiated Documentation: 06/04/23 12:49 . Limitations to Documentation: no limitations . Information obtained by: patient . History of Present Illness 37 year old F presents to the emergency department with the chief complaint of Axilla lesions, described as mild, Patient started experiencing this day(s) (2) and it has been constant. No relieving factors improve symptom(s), No exacerbating factors reported . Patient notes no other symptoms.. Related Data Home Medications Medication Instructions Recorded Confirmed ibuprofen 800 mg tablet 800 mg PO Q8H PRN pain #30 tabs 02/27/20 05/10/23 lidocaine 5 % topical ointment 1 applic topical BID PRN pain #50 01/13/22 05/10/23 grams Saccharomyces boulardii 250 mg 250 mg PO BID #14 caps 05/01/22 05/10/23 capsule (Florastor) sertraline 50 mg tablet 50 mg PO HS #90 tabs 05/04/22 05/10/23 trazodone 100 mg tablet 100 mg PO HS #90 tabs 05/04/22 05/10/23 ondansetron 4 mg disintegrating 4 mg PO Q6H PRN nausea and 12/07/22 05/10/23 tablet vomiting #30 tabs clindamycin phosphate 1 % topical 1 applic topical DAILY PRN 04/13/23 05/10/23 gel, once daily triamcinolone acetonide 0.1 % 1 applic topical BID PRN 04/13/23 05/10/23 topical cream oxycodone-acetaminophen 5 mg-325 1 tab PO Q8H PRN pain #9 tabs 04/14/23 05/10/23 mg tablet (Percocet) sulfamethoxazole 800 1 tab PO BID #14 tabs 05/07/23 05/10/23 mg-trimethoprim 160 mg tablet (Bactrim DS) oxycodone-acetaminophen 5 mg-325 1 tab PO Q8H PRN #10 tabs 05/22/23 mg tablet (Percocet) doxycycline hyclate 100 mg tablet 100 mg PO BID #14 tabs 06/04/23 Previous Rx's Medication Instructions Recorded ibuprofen 800 mg tablet 800 mg PO Q8H PRN pain #30 tabs 02/27/20 lidocaine 5 % topical ointment 1 applic topical BID PRN pain #50 01/13/22 grams Saccharomyces boulardii 250 mg 250 mg PO BID #14 caps 05/01/22 capsule (Florastor) sertraline 50 mg tablet 50 mg PO HS #90 tabs 05/04/22 trazodone 100 mg tablet 100 mg PO HS #90 tabs 05/04/22 ondansetron 4 mg disintegrating 4 mg PO Q6H PRN nausea and 12/07/22 tablet vomiting #30 tabs oxycodone-acetaminophen 5 mg-325 1 tab PO Q8H PRN pain #9 tabs 04/14/23 mg tablet (Percocet) sulfamethoxazole 800 1 tab PO BID #14 tabs 05/07/23 mg-trimethoprim 160 mg tablet (Bactrim DS) oxycodone-acetaminophen 5 mg-325 1 tab PO Q8H PRN #10 tabs 05/22/23 mg tablet (Percocet) doxycycline hyclate 100 mg tablet 100 mg PO BID #14 tabs 06/04/23 Allergies Allergy/AdvReac Type Severity Reaction Status Date / Time cyclobenzaprine Allergy Intermediate Hives Unverified 05/30/23 14:11 [From Flexeril] cephalexin [Cephalexin] AdvReac Severe Abdominal Verified 05/30/23 14:11 Cramps sugammadex AdvReac Severe Other (See Verified 05/30/23 14:11 Comment) vancomycin AdvReac Severe diarrhea, Verified 05/30/23 14:11 redness acetaminophen AdvReac Intermediate Other (See Verified 05/30/23 14:11 Comment) Cephalosporins AdvReac Intermediate Diarrhea Verified 05/30/23 14:11 codeine phosphate AdvReac Intermediate Vomiting Verified 05/30/23 14:11 [From Tylenol-Codeine #3] ketorolac [From Toradol] AdvReac Intermediate Nausea Verified 05/10/23 08:15 silver AdvReac Intermediate Skin Rash Verified 05/30/23 14:11 [From Tegaderm AG Mesh] sulfamethoxazole AdvReac Intermediate Skin Rash Verified 05/30/23 14:11 [From Bactrim] tramadol AdvReac Intermediate Diarrhea Verified 05/30/23 14:11 trimethoprim [From Bactrim] AdvReac Intermediate Skin Rash Verified 05/30/23 14:11 General Stated Complaint: Cellulitis HALINA: 3 Review of Systems All systems reviewed & are unremarkable except as noted in HPI and below Constitutional Constitutional: Denies chills, Denies fever(s) and Denies weakness Cardiovascular Cardiovascular: Denies chest pain and Denies dyspnea Respiratory Respiratory: Denies cough and Denies dyspnea Gastrointestinal Gastrointestinal: Denies abdominal pain, Denies nausea and Denies vomiting Neurologic Neurologic: Denies weakness Exam Const General: no acute distress Orientation: alert HENMT Head: normal to inspection Ears: external ears normal General nose exam: external nose normal Mouth: moist mucous membranes Eyes General: appearance normal, both eyes and all related structures Neck Neck: normal visual inspection Resp Effort & Inspection: normal respiratory effort and able to speak in complete sentences Cardio Rate: regular rate Neuro General: patient alert and patient oriented x3 Extrem General: normal to inspection Psych Mental Status: mental status grossly normal Course Vital Signs Vital signs: Vital Signs Temperature 37.2 C 06/04/23 12:49 Pulse 102 H 06/04/23 12:49 Respiratory Rate 16 06/04/23 12:49 Blood Pressure 143/95 H 06/04/23 12:49 Pulse Oximetry 100 06/04/23 12:49 Temperature 37.2 C 06/04/23 12:49 Temperature Source Skin 06/04/23 12:49 Pulse 102 H 06/04/23 12:49 Respiratory Rate 16 06/04/23 12:49 Blood Pressure 143/95 H 06/04/23 12:49 Blood Pressure Position Sitting 06/04/23 12:49 Pulse Oximetry 100 06/04/23 12:49 Oxygen Delivery Method Room Air 06/04/23 12:49 Oxygen Flow Rate 0 06/04/23 12:49 Pain Level 10 06/04/23 12:49 Medical Decision Making 37-year-old female with a history of hydradenitis, was seen last week and had some abscesses drained in her axilla and placed on clindamycin, comes in with 2 new lesions 1 in the left and 1 right axilla. There is any fevers or severe pain. She has a 1 cm fluctuant lesion with some erythema over it in the right mid axilla as well as the left mid axilla no crepitus. No other lesions elsewhere discussed with patient and she would like to proceed with I&D. I anesthetized with lidocaine with epi 3 cc on each side. Used chlorhexidine and using 11 blade cut open both the right and left lesions and had a small amount approximately 1 to 2 cc of purulent material come out. Tolerated well will place on doxycycline and have her follow-up with her PCP return precautions given Differential Diagnosis Differential Diagnosis: Hidradenitis, abscess Medical Records Medical records reviewed: Yes I reviewed the patient's medical records. Quality:SDOH Health Related Social Needs: Health related social needs details no reported proble ms. PFSH All Active Problems (Updated 06/04/23 @ 13:22 by Austin Quan MD) Hydradenitis (Acute) Abscess (Acute) Incisional infection (Acute) Breast pain, left (Acute) Unspecified open wound of left breast, initial encounter (Acute) Diarrhea (Acute) Palpable mass of soft tissue of knee (Acute) Low HDL (under 40) (Acute) Obesity without serious comorbidity (Acute) Hidradenitis suppurativa (Acute) bilateral, managed at [facility] [place]. Pending Humira start. [facility] [place] clinic referral. Bilateral ovarian cysts (Chronic) seen on multiple imaging studies Loin pain hematuria syndrome (Acute) never officially diagnosed by wine consultant Lymphedema of left lower extremity (Chronic) Anxiety (Acute 02/11/13) panic Medical History Anesthesia complication Patient with severe bradycardia with sugammadex reversal requiring compressions History of tobacco abuse quit 01/2022 History of renal calculi Endometriosis, unspecified LAPROSCOPY 2009 hysterect 2019 on OC for control Hepatomegaly Vitamin D deficiency Anemia Hepatic steatosis Surgical History S/P laparoscopic appendectomy S/P laparoscopy (2009) stage 1 endometriosis S/P laparoscopic assisted vaginal hysterectomy (LAVH) ovaries intact Hx of hand surgery L hand, pt. reports nerves were fixed Status post endovenous radiofrequency ablation (RFA) of saphenous vein for venous insufficiency 09/06/2018 wisdom teeth extraction Extracorporeal shock wave lithotripsy EGD - MAC Family History Mother Diabetes Heart disease Hyperlipidemia Father Colon cancer Heart disease Hyperlipidemia Sister Hyperlipidemia Grandfather Diabetes Grandfather Diabetes Hyperlipidemia Asthma Grandmother Diabetes Personal history of malignant neoplasm Breast Heart disease Hyperlipidemia Grandmother No problems noted. 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 Pets and animals: Yes Pets and animals: dog(s) Sexually active: Yes Do you think of yourself as: straight/heterosexual Current gender identity: female What is your relationship status?: never How often do you talk on the phone with friends or family?: three or more times per week How often do you get together with friends or relatives?: once per week How often do you attend buddhism or roman catholic services?: 1-3 times per year Do you belong to any clubs or organized social groups?: no Panel score (0-1 are the most socially isolated patients): 1 What type of physical activity do you participate in: other Duration: > 90 minutes/day Frequency: 5-6 times per week Melida/Confucianism: None Do you feel safe at home: Yes Do you feel safe in your relationship?: Yes
[2023-06-04] MEDS: Doxycycline Hyclate 100 MG CAP PO (13:29)
[2023-06-04 13:36] VITALS: BP 143/95; PULSE 102; RESP 16; TEMP 37.2; O2SAT 100
== END 2023-06-04 13:39 | disposition home or self-care (01) ==
PROVIDERS: Emergency Provider Emergency Medicine; PCP Nurse Practitioner Family
DX: L02.412 Cutaneous abscess of left axilla (principal); L02.411 Cutaneous abscess of right axilla; L73.2 Hidradenitis suppurativa
CPT/HCPCS: 10061; 99283

== ENCOUNTER 2023-06-11 14:05 | Emergency (ER) | payer MEDICAID, SELFPAY ==
[2023-06-11 14:16] VITALS: BP 155/90; PULSE 98; RESP 16; TEMP 37.2; O2SAT 100
--- NOTE | 2023-06-11 16:02 | W.ED.GENAD ---
Discharge Plan Disposition Patient Disposition: Home Condition: Stable Discharge Details Clinical Impression: Hydradenitis, Hostile behavior Primary Care Provider: Veronica Zapata ED Provider: Alida Hudson Home Meds and New Rx's Prescriptions: New clindamycin phosphate 1 % gel 1 applic topical BID Qty: 30 0RF doxycycline monohydrate 100 mg capsule 100 mg PO BID 7 Days Qty: 14 0RF No Action sertraline 50 mg tablet 50 mg PO HS Qty: 90 3RF trazodone 100 mg tablet 100 mg PO HS Qty: 90 4RF ondansetron 4 mg tablet,disintegrating 4 mg PO Q6H PRN (Reason: nausea and vomiting) Qty: 30 0RF lidocaine 5 % ointment 1 applic topical BID PRN (Reason: pain) Qty: 50 0RF triamcinolone acetonide 0.1 % cream 1 applic topical BID PRN clindamycin phosphate 1 % gel, once daily 1 applic topical DAILY PRN oxycodone-acetaminophen [Percocet] 5-325 mg tablet 1 tab PO Q8H PRNQty: 10 0RF ibuprofen 800 mg tablet 800 mg PO Q8H PRN (Reason: pain) Qty: 30 1RF Saccharomyces boulardii [Florastor] 250 mg capsule 250 mg PO BID Qty: 14 0RF Discharge Instructions Additional Instructions: Incision and drainage in the emergency department for hidradenitis suppurativa is categorically not recommended as initial treatment. Please take antibiotics as prescribed and follow-up with your staff electronic warfare officer for further treatment of this ongoing condition. HPI General Date/Time Provider Initiated Documentation: 06/11/23 15:16. Limitations to Documentation: no limitations. Information obtained by: patient and old records reviewed. HPI Narrative: 37-year-old female with past medical history of hidradenitis suppurativa presents for evaluation of right axillary wound. She reports that this is been a painful area for the last 2 days. Reports that she has a history of this. States that she needs pain medication and that it needs to be opened up. She states I know my body and that it has to be opened or it will not get better. She states she follows with dermatology in [place]. She denies that she has been evaluated by a surgeon for definitive treatment. Related Data Home Medications Medication Instructions Recorded Confirmed ibuprofen 800 mg tablet 800 mg PO Q8H PRN pain #30 tabs 02/27/20 06/11/23 lidocaine 5 % topical ointment 1 applic topical BID PRN pain #50 01/13/22 06/11/23 grams Saccharomyces boulardii 250 mg 250 mg PO BID #14 caps 05/01/22 06/11/23 capsule (Florastor) sertraline 50 mg tablet 50 mg PO HS #90 tabs 05/04/22 06/11/23 trazodone 100 mg tablet 100 mg PO HS #90 tabs 05/04/22 06/11/23 ondansetron 4 mg disintegrating 4 mg PO Q6H PRN nausea and 12/07/22 06/11/23 tablet vomiting #30 tabs clindamycin phosphate 1 % topical 1 applic topical DAILY PRN 04/13/23 06/11/23 gel, once daily triamcinolone acetonide 0.1 % 1 applic topical BID PRN 04/13/23 06/11/23 topical cream oxycodone-acetaminophen 5 mg-325 1 tab PO Q8H PRN #10 tabs 05/22/23 06/11/23 mg tablet (Percocet) clindamycin phosphate 1 % topical 1 applic topical BID #30 grams 06/11/23 gel doxycycline monohydrate 100 mg 100 mg PO BID 7 days #14 caps 06/11/23 capsule Previous Rx's Medication Instructions Recorded ibuprofen 800 mg tablet 800 mg PO Q8H PRN pain #30 tabs 02/27/20 lidocaine 5 % topical ointment 1 applic topical BID PRN pain #50 01/13/22 grams Saccharomyces boulardii 250 mg 250 mg PO BID #14 caps 05/01/22 capsule (Florastor) sertraline 50 mg tablet 50 mg PO HS #90 tabs 05/04/22 trazodone 100 mg tablet 100 mg PO HS #90 tabs 05/04/22 ondansetron 4 mg disintegrating 4 mg PO Q6H PRN nausea and 12/07/22 tablet vomiting #30 tabs oxycodone-acetaminophen 5 mg-325 1 tab PO Q8H PRN #10 tabs 05/22/23 mg tablet (Percocet) clindamycin phosphate 1 % topical 1 applic topical BID #30 grams 06/11/23 gel doxycycline monohydrate 100 mg 100 mg PO BID 7 days #14 caps 06/11/23 capsule Allergies Allergy/AdvReac Type Severity Reaction Status Date / Time cyclobenzaprine Allergy Intermediate Hives Unverified 06/11/23 14:19 [From Flexeril] cephalexin [Cephalexin] AdvReac Severe Abdominal Verified 06/11/23 14:19 Cramps sugammadex AdvReac Severe Other (See Verified 06/11/23 14:19 Comment) vancomycin AdvReac Severe diarrhea, Verified 06/11/23 14:19 redness acetaminophen AdvReac Intermediate Other (See Verified 06/11/23 14:19 Comment) Cephalosporins AdvReac Intermediate Diarrhea Verified 06/11/23 14:19 codeine phosphate AdvReac Intermediate Vomiting Verified 06/11/23 14:19 [From Tylenol-Codeine #3] ketorolac [From Toradol] AdvReac Intermediate Nausea Verified 06/11/23 14:19 silver AdvReac Intermediate Skin Rash Verified 06/11/23 14:19 [From Tegaderm AG Mesh] sulfamethoxazole AdvReac Intermediate Skin Rash Verified 06/11/23 14:19 [From Bactrim] tramadol AdvReac Intermediate Diarrhea Verified 06/11/23 14:19 trimethoprim [From Bactrim] AdvReac Intermediate Skin Rash Verified 06/11/23 14:19 General Stated Complaint: Cellulitis HALINA: 4 Exam Narrative Exam Narrative: Review of Systems: All systems reviewed & are unremarkable except as noted in HPI and below Well-developed, no acute distress NCAT PERRL, normal conjunctiva RRR Unlabored respiratory effort Nondistended abdomen Extremities w/o deformity, no cyanosis, no edema Right axilla with 2 small subcutaneous areas of induration, there is no fluctuance no overlying erythema or signs of cellulitis. There are no tunnels no focal neurologic deficits Angry, hostile and screaming curse words Course Vital Signs Vital signs: Vital Signs Temperature 37.2 C 06/11/23 14:16 Pulse 98 H 06/11/23 14:16 Respiratory Rate 16 06/11/23 14:16 Blood Pressure 155/90 H 06/11/23 14:16 Pulse Oximetry 100 06/11/23 14:16 Temperature 37.2 C 06/11/23 14:16 Temperature Source Skin 06/11/23 14:16 Pulse 98 H 06/11/23 14:16 Respiratory Rate 16 06/11/23 14:16 Respiratory Effort Normal, Non-Labored 06/11/23 14:20 Blood Pressure 155/90 H 06/11/23 14:16 Blood Pressure Position Sitting 06/11/23 14:16 Pulse Oximetry 100 06/11/23 14:16 Oxygen Delivery Method Room Air 06/11/23 15:32 Oxygen Flow Rate 0 06/11/23 14:16 Pain Level 10 06/11/23 14:16 Comment chris 06/11/23 15:32 Medical Decision Making Evaluation of axillary skin infection. Patient reports a history of hidradenitis. On my evaluation the axilla is fairly benign. She does have 2 small nodular lesions that she does report to be painful. But there are no overall signs of tract, drainage, cellulitis. I am also not seeing any evidence of scarring consistent with prior incision and drainage. Patient is demanding opiates. I advised that based on current guidelines, incision and drainage of hidradenitis is not recommended, and that it can in fact worsen the overall condition and prognosis. Discussed alternative treatments. However when the patient was advised that I do not believe that an incision and drainage would be an appropriate treatment modality for her at this time, she became very hostile. She ripped off her gown. She ripped off her patient bracelet she started throwing things in the room. She demanded to see another doctor, and she was politely informed that no other doctor was available to see her at this time. She had been evaluated by me and a treatment plan have been developed. My treatment plan included topical clindamycin as well as oral doxycycline and close follow-up with dermatology for possible intralesional corticosteroid injection. The overall appearance does not appear grossly infected or significantly concerning. The nodule is fairly small and based on evidence based guidelines, incision and drainage would not be appropriate. The patient refused to sign her discharge paperwork. She refused her antibiotics. She repeatedly said the F word and stated that she would be reporting me. I believe that her behavior and treatment requests are highly suspicious for drug-seeking. Medical Records Medical records reviewed: Yes I reviewed the patient's medical records. Lab Data Lab results reviewed: Yes I reviewed the patient's lab results. Quality:SDOH Health Related Social Needs: Health related social needs details no reported problems. PFSH All Active Problems (Updated 06/11/23 @ 16:14 by Alida Hudson MD) Hostile behavior (Acute) Hydradenitis (Acute) Abscess (Acute) Breast pain, left (Acute) Unspecified open wound of left breast, initial encounter (Acute) Diarrhea (Acute) Palpable mass of soft tissue of knee (Acute) Low HDL (under 40) (Acute) Obesity without serious comorbidity (Acute) Hidradenitis suppurativa (Acute) bilateral, managed at [facility] derm. Pending Humira start. [facility] did pain clinic referral. Bilateral ovarian cysts (Chronic) seen on multiple imaging studies Loin pain hematuria syndrome (Acute) never officially diagnosed by track machine operator repairer Lymphedema of left lower extremity (Chronic) Anxiety (Acute 02/11/13) panic Medical History Anesthesia complication Patient with severe bradycardia with sugammadex reversal requiring compressions History of tobacco abuse quit 01/2022 History of renal calculi Endometriosis, unspecified LAPROSCOPY 2009 hysterect 2019 on OC for control Hepatomegaly Vitamin D deficiency Anemia Hepatic steatosis Surgical History S/P laparoscopic appendectomy S/P laparoscopy (2009) stage 1 endometriosis S/P laparoscopic assisted vaginal hysterectomy (LAVH) ovaries intact Hx of hand surgery L hand, pt. reports nerves were fixed Status post endovenous radiofrequency ablation (RFA) of saphenous vein for venous insufficiency 09/06/2018 wisdom teeth extraction Extracorporeal shock wave lithotripsy EGD - MAC Family History Mother Diabetes Heart disease Hyperlipidemia Father Colon cancer Heart disease Hyperlipidemia Sister Hyperlipidemia Grandfather Diabetes Grandfather Diabetes Hyperlipidemia Asthma Grandmother Diabetes Personal history of malignant neoplasm Breast Heart disease Hyperlipidemia Grandmother No problems noted. 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 Pets and animals: Yes Pets and animals: dog(s) Sexually active: Yes Do you think of yourself as: straight/heterosexual Current gender identity: female What is your relationship status?: never How often do you talk on the phone with friends or family?: three or more times per week How often do you get together with friends or relatives?: once per week How often do you attend bahai or quaker services?: 1-3 times per year Do you belong to any clubs or organized social groups?: no Panel score (0-1 are the most socially isolated patients): 1 What type of physical activity do you participate in: other Duration: > 90 minutes/day Frequency: 5-6 times per week Melida/Christian: None Do you feel safe at home: Yes Do you feel safe in your relationship?: Yes
== END 2023-06-11 15:32 | disposition home or self-care (01) ==
PROVIDERS: Emergency Provider Emergency Medicine; PCP Nurse Practitioner Family
DX: L73.2 Hidradenitis suppurativa (principal); R45.5 Hostility
CPT/HCPCS: 99283

== ENCOUNTER 2023-06-17 18:08 | Emergency (ER) | payer MEDICAID, SELFPAY ==
[2023-06-17 18:10] VITALS: BP 173/94; PULSE 85; RESP 15; TEMP 36.4; O2SAT 100
--- NOTE | 2023-06-17 18:34 | ED.GENADUL_ITS ---
Discharge Plan Disposition Patient Disposition: Home Condition: Stable Discharge Details Clinical Impression: Abscess, Hidradenitis suppurativa Primary Care Provider: Veronica Zapata ED Provider: Marina Moe Home Meds and New Rx's Prescriptions: New clindamycin HCl 150 mg capsule 450 mg PO TID 7 Days Qty: 63 0RF oxycodone-acetaminophen [Percocet] 5-325 mg tablet 1 tab PO Q8H PRN (Reason: pain) Qty: 4 0RF Rx Instructions: Take one tablet every 8 hours as needed for moderate to severe pain No Action sertraline 50 mg tablet 50 mg PO HS Qty: 90 3RF trazodone 100 mg tablet 100 mg PO HS Qty: 90 4RF ondansetron 4 mg tablet,disintegrating 4 mg PO Q6H PRN (Reason: nausea and vomiting) Qty: 30 0RF lidocaine 5 % ointment 1 applic topical BID PRN (Reason: pain) Qty: 50 0RF triamcinolone acetonide 0.1 % cream 1 applic topical BID PRN clindamycin phosphate 1 % gel, once daily 1 applic topical DAILY PRN ibuprofen 800 mg tablet 800 mg PO Q8H PRN (Reason: pain) Qty: 30 1RF Saccharomyces boulardii [Florastor] 250 mg capsule 250 mg PO BID Qty: 14 0RF clindamycin phosphate 1 % gel 1 applic topical BID Qty: 30 0RF Discharge Instructions Instructions: Abscess (ED) Additional Instructions: Packing was placed today. Please leave the packing in for no longer than 3 days. It is okay if it falls out on its own. Keep the area clean and dry. Take the antibiotic as directed. Take the antibiotic with yogurt or probiotic. Follow up with primary care provider in 3-5 days. Return to ED sooner if any worsening or concerns. Please take Tylenol or Ibuprofen with food every 4-6 hours as needed for pain and swelling. Referrals: Veronica Zapata [Primary Care Provider] - 3 days Discharge Data Discharge Date/Time-TO BE ENTERED AT DEPARTURE: 06/17/23 19:35 HPI General Date/Time Provider Initiated Documentation: 06/17/23 18:11 . Limitations to Documentation: no limitations . Information obtained by: patient, RN notes reviewed and old records reviewed . HPI Narrative: 37-year-old female presents to the ER with chief complaint of abscess and tenderness in her right arm and her right axilla. She does have a history of hidradenitis suppurativa has had multiple abscess and I&D's. She reports that she had it drained on Monday and that pain and tenderness has returned. She is not currently on any antibiotics. She does have a other history of renal calculi, endometriosis hepatomegaly vitamin D deficiency hepatic steatosis. She is also requesting pain medication. She does have a small nodular right axilla. Denies any fever chills or systemic type symptoms. Related Data Home Medications Medication Instructions Recorded Confirmed ibuprofen 800 mg tablet 800 mg PO Q8H PRN pain #30 tabs 02/27/20 06/17/23 lidocaine 5 % topical ointment 1 applic topical BID PRN pain #50 01/13/22 06/17/23 grams Saccharomyces boulardii 250 mg 250 mg PO BID #14 caps 05/01/22 06/17/23 capsule (Florastor) sertraline 50 mg tablet 50 mg PO HS #90 tabs 05/04/22 06/17/23 trazodone 100 mg tablet 100 mg PO HS #90 tabs 05/04/22 06/17/23 ondansetron 4 mg disintegrating 4 mg PO Q6H PRN nausea and 12/07/22 06/17/23 tablet vomiting #30 tabs clindamycin phosphate 1 % topical 1 applic topical DAILY PRN 04/13/23 06/17/23 gel, once daily triamcinolone acetonide 0.1 % 1 applic topical BID PRN 04/13/23 06/17/23 topical cream clindamycin phosphate 1 % topical 1 applic topical BID #30 grams 06/11/23 06/17/23 gel clindamycin HCl 150 mg capsule 450 mg (3 x 150 mg) PO TID 7 days 06/17/23 #63 caps oxycodone-acetaminophen 5 mg-325 1 tab PO Q8H PRN pain #4 tabs 06/17/23 mg tablet (Percocet) Previous Rx's Medication Instructions Recorded ibuprofen 800 mg tablet 800 mg PO Q8H PRN pain #30 tabs 02/27/20 lidocaine 5 % topical ointment 1 applic topical BID PRN pain #50 01/13/22 grams Saccharomyces boulardii 250 mg 250 mg PO BID #14 caps 05/01/22 capsule (Florastor) sertraline 50 mg tablet 50 mg PO HS #90 tabs 05/04/22 trazodone 100 mg tablet 100 mg PO HS #90 tabs 05/04/22 ondansetron 4 mg disintegrating 4 mg PO Q6H PRN nausea and 12/07/22 tablet vomiting #30 tabs clindamycin phosphate 1 % topical 1 applic topical BID #30 grams 06/11/23 gel clindamycin HCl 150 mg capsule 450 mg (3 x 150 mg) PO TID 7 days 06/17/23 #63 caps oxycodone-acetaminophen 5 mg-325 1 tab PO Q8H PRN pain #4 tabs 06/17/23 mg tablet (Percocet) Allergies Allergy/AdvReac Type Severity Reaction Status Date / Time cyclobenzaprine Allergy Intermediate Hives Unverified 06/17/23 18:14 [From Flexeril] cephalexin [Cephalexin] AdvReac Severe Abdominal Verified 06/17/23 18:14 Cramps sugammadex AdvReac Severe Other (See Verified 06/17/23 18:14 Comment) vancomycin AdvReac Severe diarrhea, Verified 06/17/23 18:14 redness acetaminophen AdvReac Intermediate Other (See Verified 06/17/23 18:14 Comment) Cephalosporins AdvReac Intermediate Diarrhea Verified 06/17/23 18:14 codeine phosphate AdvReac Intermediate Vomiting Verified 06/17/23 18:14 [From Tylenol-Codeine #3] ketorolac [From Toradol] AdvReac Intermediate Nausea Verified 06/17/23 18:14 silver AdvReac Intermediate Skin Rash Verified 06/17/23 18:14 [From Tegaderm AG Mesh] sulfamethoxazole AdvReac Intermediate Skin Rash Verified 06/17/23 18:14 [From Bactrim] tramadol AdvReac Intermediate Diarrhea Verified 06/17/23 18:14 trimethoprim [From Bactrim] AdvReac Intermediate Skin Rash Verified 06/17/23 18:14 General Stated Complaint: RashLesion HALINA: 3 Review of Systems All systems reviewed & are unremarkable except as noted in HPI and below Integumentary/Breasts Skin/Breast: Reports as per HPI, Reports skin pain and Reports skin swelling Exam Chest Breast palpation: abnormal palpation of the axilla right induration and tenderness Chest/axillae images: 2 1. Small area of induration noted. Previous incision noted, no drainage Extrem Right upper extremity: shoulder/upper arm Details: tenderness, swelling and other (Multiple areas of induration noted to her right axilla.) Course Vital Signs Vital signs: Vital Signs Temperature 36.4 C L 06/17/23 18:10 Pulse 85 06/17/23 18:10 Respiratory Rate 15 06/17/23 18:10 Blood Pressure 173/94 H 06/17/23 18:10 Pulse Oximetry 100 06/17/23 18:10 Temperature 36.4 C L 06/17/23 18:10 Temperature Source Tympanic 06/17/23 18:10 Pulse 85 06/17/23 18:10 Respiratory Rate 15 06/17/23 18:10 Blood Pressure 173/94 H 06/17/23 18:10 Blood Pressure Position Sitting 06/17/23 18:10 Pulse Oximetry 100 06/17/23 18:10 Oxygen Delivery Method Room Air 06/17/23 18:10 Oxygen Flow Rate 0 06/17/23 18:10 Pain Level 9 06/17/23 18:10 Procedures Abscess I/D Site: Upper Extremity (Right axillae) Side (if applicable): Right Sedation/analgesia: None Local Anesthetic: Lidocaine 2% and With Epi Amount of anesthesia used (mL): 2 Technique: Incised with #11 Blade Amount of fluid expressed (mL): 0.5 Irrigation: No Packing used?: Iodoform (1 inch) Complications: Other (None, Small amount of bleeding, no pus) Medical Decision Making 37-year-old female presents to the ER with chief complaint of abscess and tenderness in her right arm and her right axilla. She does have a history of hidradenitis suppurativa has had multiple abscess and I&D's. She reports that she had it drained on Monday and that pain and tenderness has returned. She is not currently on any antibiotics. She does have a other history of renal calculi, endometriosis hepatomegaly vitamin D deficiency hepatic steatosis. She is also requesting pain medication. She does have a small nodular right axilla. Denies any fever chills or systemic type symptoms. 1835: Area anethesized with 2% lidocaine with epi, patient tolerated well. Small 0.5 incision made, bloody drainage no purulent discharge noted. Patient tolerated well. Small amount of iodoform quarter inch packing placed. Dressing applied. Will give clindamycin and couple tablets of Percocet to go home with. This text was generated using [employer] system, please disregard any oddities of phrase or misspellings. Medical Records Medical records reviewed: Yes I reviewed the patient's medical records. Quality:SDOH Health Related Social Needs: 2 Health related social needs details no reported proble ms. [place] All Active Problems (Updated 06/17/23 @ 18:57 by Marina Moe NP) Hostile behavior (Acute) Hydradenitis (Acute) Abscess (Acute) Breast pain, left (Acute) Unspecified open wound of left breast, initial encounter (Acute) Diarrhea (Acute) Palpable mass of soft tissue of knee (Acute) Low HDL (under 40) (Acute) Obesity without serious comorbidity (Acute) Hidradenitis suppurativa (Acute) bilateral, managed at [facility] derm. Pending Humira start. [facility] did pain clinic referral. Bilateral ovarian cysts (Chronic) seen on multiple imaging studies Loin pain hematuria syndrome (Acute) never officially diagnosed by surgeon chief Lymphedema of left lower extremity (Chronic) Anxiety (Acute 02/11/13) panic Medical History Anesthesia complication Patient with severe bradycardia with sugammadex reversal requiring compressions History of tobacco abuse quit 01/2022 History of renal calculi Endometriosis, unspecified LAPROSCOPY 2009 hysterect 2019 on OC for control Hepatomegaly Vitamin D deficiency Anemia Hepatic steatosis Surgical History S/P laparoscopic appendectomy S/P laparoscopy (2009) stage 1 endometriosis S/P laparoscopic assisted vaginal hysterectomy (LAVH) ovaries intact Hx of hand surgery L hand, pt. reports nerves were fixed Status post endovenous radiofrequency ablation (RFA) of saphenous vein for venous insufficiency 09/06/2018 wisdom teeth extraction Extracorporeal shock wave lithotripsy EGD - MAC Family History Mother Diabetes Heart disease Hyperlipidemia Father Colon cancer Heart disease Hyperlipidemia Sister Hyperlipidemia Grandfather Diabetes Grandfather Diabetes Hyperlipidemia Asthma Grandmother Diabetes Personal history of malignant neoplasm Breast Heart disease Hyperlipidemia Grandmother No problems noted. 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 Pets and animals: Yes Pets and animals: dog(s) Sexually active: Yes Do you think of yourself as: straight/heterosexual Current gender identity: female What is your relationship status?: never How often do you talk on the phone with friends or family?: three or more times per week How often do you get together with friends or relatives?: once per week How often do you attend anglican or orthodoxy services?: 1-3 times per year Do you belong to any clubs or organized social groups?: no Panel score (0-1 are the most socially isolated patients): 1 What type of physical activity do you participate in: other Duration: > 90 minutes/day Frequency: 5-6 times per week Melida/Advent: None Do you feel safe at home: Yes Do you feel safe in your relationship?: Yes
[2023-06-17] MEDS: Clindamycin 150 MG CAP 450 MG PO (18:36)
[2023-06-17] MEDS: oxyCODONE 5 mg/Acetaminophen 325 mg TAB 1 TAB PO (18:37)
[2023-06-17] MEDS: Clindamycin 150 MG CAP, 12 CAPS/BTL 450 MG PO (19:33)
[2023-06-17 19:34] VITALS: BP 173/94; PULSE 85; RESP 15; TEMP 36.4; O2SAT 100
== END 2023-06-17 19:35 | disposition home or self-care (01) ==
LOC: ER 19:35
PROVIDERS: Emergency Provider Registered Nurse Emergency; PCP Nurse Practitioner Family
DX: L02.411 Cutaneous abscess of right axilla (principal); L73.2 Hidradenitis suppurativa; Z87.891 Personal history of nicotine dependence
CPT/HCPCS: 10060; 99283

== ENCOUNTER 2023-06-22 13:48 | Emergency (ER) | payer MEDICAID, SELFPAY ==
[2023-06-22 13:51] VITALS: BP 183/112; PULSE 78; RESP 18; TEMP 36.4; O2SAT 99
[2023-06-22 14:35] VITALS: BP 175/98; PULSE 71; RESP 18; O2SAT 98
--- NOTE | 2023-06-22 15:34 | ED.GENADUL_ITS ---
Discharge Plan Discharge Details Chief Complaint: RashLesion Primary Care Provider: Veronica Zapata ED Provider: Lesvia German Home Meds and New Rx's Prescriptions: No Action sertraline 50 mg tablet 50 mg PO HS Qty: 90 3RF trazodone 100 mg tablet 100 mg PO HS Qty: 90 4RF ondansetron 4 mg tablet,disintegrating 4 mg PO Q6H PRN (Reason: nausea and vomiting) Qty: 30 0RF lidocaine 5 % ointment 1 applic topical BID PRN (Reason: pain) Qty: 50 0RF triamcinolone acetonide 0.1 % cream 1 applic topical BID PRN clindamycin phosphate 1 % gel, once daily 1 applic topical DAILY PRN clindamycin HCl 150 mg capsule 450 mg PO TID 7 Days Qty: 63 0RF oxycodone-acetaminophen [Percocet] 5-325 mg tablet 1 tab PO Q8H PRN (Reason: pain) Qty: 4 0RF Rx Instructions: Take one tablet every 8 hours as needed for moderate to severe pain ibuprofen 800 mg tablet 800 mg PO Q8H PRN (Reason: pain) Qty: 30 1RF Saccharomyces boulardii [Florastor] 250 mg capsule 250 mg PO BID Qty: 14 0RF clindamycin phosphate 1 % gel 1 applic topical BID Qty: 30 0RF HPI General Date/Time Provider Initiated Documentation: 06/22/23 13:54 . HPI Narrative: This 37-year-old female presents with report of abscess to right axillary region. Patient is currently on antibiotics for an incised and drained abscess. States she would like the new abscess drained as well. She requests opiate analgesia and extension of her antibiotics. Denies any additional complaints, fever, chills. Related Data Home Medications Medication Instructions Recorded Confirmed ibuprofen 800 mg tablet 800 mg PO Q8H PRN pain #30 tabs 02/27/20 06/17/23 lidocaine 5 % topical ointment 1 applic topical BID PRN pain #50 01/13/22 06/17/23 grams Saccharomyces boulardii 250 mg 250 mg PO BID #14 caps 05/01/22 06/17/23 capsule (Florastor) sertraline 50 mg tablet 50 mg PO HS #90 tabs 05/04/22 06/17/23 trazodone 100 mg tablet 100 mg PO HS #90 tabs 05/04/22 06/17/23 ondansetron 4 mg disintegrating 4 mg PO Q6H PRN nausea and 12/07/22 06/17/23 tablet vomiting #30 tabs clindamycin phosphate 1 % topical 1 applic topical DAILY PRN 04/13/23 06/17/23 gel, once daily triamcinolone acetonide 0.1 % 1 applic topical BID PRN 04/13/23 06/17/23 topical cream clindamycin phosphate 1 % topical 1 applic topical BID #30 grams 06/11/23 06/17/23 gel clindamycin HCl 150 mg capsule 450 mg (3 x 150 mg) PO TID 7 days 06/17/23 #63 caps oxycodone-acetaminophen 5 mg-325 1 tab PO Q8H PRN pain #4 tabs 06/17/23 mg tablet (Percocet) Previous Rx's Medication Instructions Recorded ibuprofen 800 mg tablet 800 mg PO Q8H PRN pain #30 tabs 02/27/20 lidocaine 5 % topical ointment 1 applic topical BID PRN pain #50 01/13/22 grams Saccharomyces boulardii 250 mg 250 mg PO BID #14 caps 05/01/22 capsule (Florastor) sertraline 50 mg tablet 50 mg PO HS #90 tabs 05/04/22 trazodone 100 mg tablet 100 mg PO HS #90 tabs 05/04/22 ondansetron 4 mg disintegrating 4 mg PO Q6H PRN nausea and 12/07/22 tablet vomiting #30 tabs clindamycin phosphate 1 % topical 1 applic topical BID #30 grams 06/11/23 gel clindamycin HCl 150 mg capsule 450 mg (3 x 150 mg) PO TID 7 days 06/17/23 #63 caps oxycodone-acetaminophen 5 mg-325 1 tab PO Q8H PRN pain #4 tabs 06/17/23 mg tablet (Percocet) Allergies Allergy/AdvReac Type Severity Reaction Status Date / Time cyclobenzaprine Allergy Intermediate Hives Unverified 06/17/23 18:14 [From Flexeril] cephalexin [Cephalexin] AdvReac Severe Abdominal Verified 06/17/23 18:14 Cramps sugammadex AdvReac Severe Other (See Verified 06/17/23 18:14 Comment) vancomycin AdvReac Severe diarrhea, Verified 06/17/23 18:14 redness acetaminophen AdvReac Intermediate Other (See Verified 06/17/23 18:14 Comment) Cephalosporins AdvReac Intermediate Diarrhea Verified 06/17/23 18:14 codeine phosphate AdvReac Intermediate Vomiting Verified 06/17/23 18:14 [From Tylenol-Codeine #3] ketorolac [From Toradol] AdvReac Intermediate Nausea Verified 06/17/23 18:14 silver AdvReac Intermediate Skin Rash Verified 06/17/23 18:14 [From Tegaderm AG Mesh] sulfamethoxazole AdvReac Intermediate Skin Rash Verified 06/17/23 18:14 [From Bactrim] tramadol AdvReac Intermediate Diarrhea Verified 06/17/23 18:14 trimethoprim [From Bactrim] AdvReac Intermediate Skin Rash Verified 06/17/23 18:14 General Stated Complaint: RashLesion HALINA: 4 Course Vital Signs Vital signs: Vital Signs Temperature 36.4 C L 06/22/23 13:51 Pulse 78 06/22/23 13:51 Respiratory Rate 18 06/22/23 13:51 Blood Pressure 183/112 H 06/22/23 13:51 Pulse Oximetry 99 06/22/23 13:51 Temperature 36.4 C L 06/22/23 13:51 Pulse 71 06/22/23 14:35 Respiratory Rate 18 06/22/23 14:35 Respiratory Effort Normal 06/22/23 13:54 Blood Pressure 175/98 H 06/22/23 14:35 Pulse Oximetry 98 06/22/23 14:35 Oxygen Delivery Method Room Air 06/22/23 14:35 Oxygen Flow Rate 0 06/22/23 14:35 Medical Decision Making This 37-year-old female presents with report of recurrent abscess with history of hidradenitis to right axillary region Approximately 3 to 4 mm firm likely developing abscess to the right axillary region at the 3 o'clock position Patient denies fever or chills. She states that this site is painful and that she would like to have it drained She requests opiate analgesia and extension of her antibiotics I did inform the patient that I am uncomfortable providing additional opiates at this time Approximately 3 minutes after patient was notified of this, she rushed out of her room and informed me that her son was in a car accident and that she needed to leave I did not perform incision and drainage and patient declines any additional intervention at this time She is fully alert, oriented, of decisional capacity Her blood pressure is elevated, she will need to follow-up with her doctor regarding this finding I did not have a chance to review recommendations and return precautions prior to patient leaving this emergency department Quality:SDOH Health Related Social Needs: Health related social needs details no reported proble ms. [place] All Active Problems (Updated 06/22/23 @ 00:06 by ZACKARY KWONG) Hostile behavior (Acute) Hydradenitis (Acute) Breast pain, left (Acute) Unspecified open wound of left breast, initial encounter (Acute) Diarrhea (Acute) Palpable mass of soft tissue of knee (Acute) Low HDL (under 40) (Acute) Obesity without serious comorbidity (Acute) Hidradenitis suppurativa (Acute) bilateral, managed at [facility] derm. Pending Humira start. [facility] did pain clinic referral. Bilateral ovarian cysts (Chronic) seen on multiple imaging studies Loin pain hematuria syndrome (Acute) never officially diagnosed by valve assembler Lymphedema of left lower extremity (Chronic) Anxiety (Acute 02/11/13) panic Medical History Anesthesia complication Patient with severe bradycardia with sugammadex reversal requiring compressions History of tobacco abuse quit 01/2022 History of renal calculi Endometriosis, unspecified LAPROSCOPY 2009 hysterect 2019 on OC for control Hepatomegaly Vitamin D deficiency Anemia Hepatic steatosis Surgical History S/P laparoscopic appendectomy S/P laparoscopy (2009) stage 1 endometriosis S/P laparoscopic assisted vaginal hysterectomy (LAVH) ovaries intact Hx of hand surgery L hand, pt. reports nerves were fixed Status post endovenous radiofrequency ablation (RFA) of saphenous vein for venous insufficiency 09/06/2018 wisdom teeth extraction Extracorporeal shock wave lithotripsy EGD - MAC Family History Mother Diabetes Heart disease Hyperlipidemia Father Colon cancer Heart disease Hyperlipidemia Sister Hyperlipidemia Grandfather Diabetes Grandfather Diabetes Hyperlipidemia Asthma Grandmother Diabetes Personal history of malignant neoplasm Breast Heart disease Hyperlipidemia Grandmother No problems noted. 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 Pets and animals: Yes Pets and animals: dog(s) Sexually active: Yes Do you think of yourself as: straight/heterosexual Current gender identity: female What is your relationship status?: never How often do you talk on the phone with friends or family?: three or more times per week How often do you get together with friends or relatives?: once per week How often do you attend congregational or mandaeism services?: 1-3 times per year Do you belong to any clubs or organized social groups?: no Panel score (0-1 are the most socially isolated patients): 1 What type of physical activity do you participate in: other Duration: > 90 minutes/day Frequency: 5-6 times per week Melida/Samaritan: None Do you feel safe at home: Yes Do you feel safe in your relationship?: Yes
== END 2023-06-22 14:40 | disposition left against medical advice (07) ==
LOC: ER 14:12
PROVIDERS: Emergency Provider Physician Assistant; PCP Nurse Practitioner Family
DX: L02.411 Cutaneous abscess of right axilla (principal); L73.2 Hidradenitis suppurativa; Z53.29 Procedure and treatment not carried out because of patient's decision for other reasons
CPT/HCPCS: 99282

== ENCOUNTER 2023-06-29 12:52 | Emergency (ER) | payer MEDICAID, SELFPAY ==
[2023-06-29 13:04] VITALS: BP 145/92; PULSE 83; RESP 16; TEMP 36.9; O2SAT 100
[2023-06-29 13:08] VITALS: BP 145/92; PULSE 83; RESP 16; TEMP 36.9; O2SAT 100
--- NOTE | 2023-06-29 14:42 | ED.GENADUL_ITS ---
Discharge Plan Disposition Patient Disposition: Home Condition: Stable Discharge Details Clinical Impression: Pain in right axilla, Hidradenitis suppurativa Primary Care Provider: Veronica Zapata ED Provider: Alida Hudson Home Meds and New Rx's Prescriptions: No Action sertraline 50 mg tablet 50 mg PO HS Qty: 90 3RF trazodone 100 mg tablet 100 mg PO HS Qty: 90 4RF ondansetron 4 mg tablet,disintegrating 4 mg PO Q6H PRN (Reason: nausea and vomiting) Qty: 30 0RF lidocaine 5 % ointment 1 applic topical BID PRN (Reason: pain) Qty: 50 0RF triamcinolone acetonide 0.1 % cream 1 applic topical BID PRN oxycodone-acetaminophen [Percocet] 5-325 mg tablet 1 tab PO Q8H PRN (Reason: pain) Qty: 4 0RF Rx Instructions: Take one tablet every 8 hours as needed for moderate to severe pain ibuprofen 800 mg tablet 800 mg PO Q8H PRN (Reason: pain) Qty: 30 1RF Saccharomyces boulardii [Florastor] 250 mg capsule 250 mg PO BID Qty: 14 0RF clindamycin phosphate 1 % gel 1 applic topical BID Qty: 30 0RF doxycycline hyclate 100 mg capsule 100 mg PO BID Patient Comments: TAKE ONE CAPSULE BY MOUTH TWO TIMES A DAY FOR 14 DAYS Discharge Instructions Additional Instructions: continue topical clindamycin and oral doxycyclin you can try applying topical heat please follow up with your level vial sealer when able HPI General Date/Time Provider Initiated Documentation: 06/29/23 12:56 . Limitations to Documentation: no limitations . Information obtained by: patient . HPI Narrative: 37-year-old female with past medical history of hidradenitis presents for ev aluation of right axillary pain. Patient reports pain is severe. She reports that she has had repeated I&D on the area without improvement. She states that she is currently on doxycycline. She states that she is using topical clindamycin. She denies any fever. She denies any drainage from the area. Related Data Home Medications Medication Instructions Recorded Confirmed ibuprofen 800 mg tablet 800 mg PO Q8H PRN pain #30 tabs 02/27/20 06/29/23 lidocaine 5 % topical ointment 1 applic topical BID PRN pain #50 01/13/22 06/29/23 grams Saccharomyces boulardii 250 mg 250 mg PO BID #14 caps 05/01/22 06/29/23 capsule (Florastor) sertraline 50 mg tablet 50 mg PO HS #90 tabs 05/04/22 06/29/23 trazodone 100 mg tablet 100 mg PO HS #90 tabs 05/04/22 06/29/23 ondansetron 4 mg disintegrating 4 mg PO Q6H PRN nausea and 12/07/22 06/29/23 tablet vomiting #30 tabs triamcinolone acetonide 0.1 % 1 applic topical BID PRN 04/13/23 06/29/23 topical cream clindamycin phosphate 1 % topical 1 applic topical BID #30 grams 06/11/23 06/29/23 gel oxycodone-acetaminophen 5 mg-325 1 tab PO Q8H PRN pain #4 tabs 06/17/23 06/29/23 mg tablet (Percocet) doxycycline hyclate 100 mg capsule 100 mg PO BID 06/29/23 06/29/23 Previous Rx's Medication Instructions Recorded ibuprofen 800 mg tablet 800 mg PO Q8H PRN pain #30 tabs 02/27/20 lidocaine 5 % topical ointment 1 applic topical BID PRN pain #50 01/13/22 grams Saccharomyces boulardii 250 mg 250 mg PO BID #14 caps 05/01/22 capsule (Florastor) sertraline 50 mg tablet 50 mg PO HS #90 tabs 05/04/22 trazodone 100 mg tablet 100 mg PO HS #90 tabs 05/04/22 ondansetron 4 mg disintegrating 4 mg PO Q6H PRN nausea and 12/07/22 tablet vomiting #30 tabs clindamycin phosphate 1 % topical 1 applic topical BID #30 grams 06/11/23 gel oxycodone-acetaminophen 5 mg-325 1 tab PO Q8H PRN pain #4 tabs 06/17/23 mg tablet (Percocet) Allergies Allergy/AdvReac Type Severity Reaction Status Date / Time cyclobenzaprine Allergy Intermediate Hives Unverified 06/29/23 13:07 [From Flexeril] cephalexin [Cephalexin] AdvReac Severe Abdominal Verified 06/29/23 13:07 Cramps sugammadex AdvReac Severe Other (See Verified 06/29/23 13:07 Comment) vancomycin AdvReac Severe diarrhea, Verified 06/29/23 13:07 redness acetaminophen AdvReac Intermediate Other (See Verified 06/29/23 13:07 Comment) Cephalosporins AdvReac Intermediate Diarrhea Verified 06/29/23 13:07 codeine phosphate AdvReac Intermediate Vomiting Verified 06/29/23 13:07 [From Tylenol-Codeine #3] ketorolac [From Toradol] AdvReac Intermediate Nausea Verified 06/29/23 13:07 silver AdvReac Intermediate Skin Rash Verified 06/29/23 13:07 [From Tegaderm AG Mesh] sulfamethoxazole AdvReac Intermediate Skin Rash Verified 06/29/23 13:07 [From Bactrim] tramadol AdvReac Intermediate Diarrhea Verified 06/29/23 13:07 trimethoprim [From Bactrim] AdvReac Intermediate Skin Rash Verified 06/29/23 13:07 General Stated Complaint: Cellulitis HALINA: 4 Exam Narrative Exam Narrative: Review of Systems: All systems reviewed & are unremarkable except as noted in HPI and below Well-developed, no acute distress NCAT PERRL, normal conjunctiva RRR Unlabored respiratory effort Nondistended abdomen Extremities w/o deformity, no cyanosis, no edema Right axilla with 1x1 area of firmness with central linear incision noted, no erythema, no drainage no focal neurologic deficits Appropriate mood and affect Course Vital Signs Vital signs: Vital Signs Temperature 36.9 C 06/29/23 13:04 Pulse 83 06/29/23 13:04 Respiratory Rate 16 06/29/23 13:04 Blood Pressure 145/92 H 06/29/23 13:04 Pulse Oximetry 100 06/29/23 13:04 Temperature 36.9 C 06/29/23 13:08 Temperature Source Skin 06/29/23 13:08 Pulse 83 06/29/23 13:08 Respiratory Rate 16 06/29/23 13:08 Respiratory Effort Normal, Non-Labored 06/29/23 13:07 Blood Pressure 145/92 H 06/29/23 13:08 Blood Pressure Position Sitting 06/29/23 13:08 Pulse Oximetry 100 06/29/23 13:08 Oxygen Delivery Method Room Air 06/29/23 13:08 Oxygen Flow Rate 0 06/29/23 13:08 Pain Level 9 06/29/23 13:08 Medical Decision Making Emergent evaluation of axillary pain. Patient has a history of hidradenitis. At some point this area has been incised unsuccessfully. I have discussed with her that incision and drainage on hidradenitis is typically not indicated for small lesions such as this and this is likely why she has not had improvement in her symptoms. She has recently started on antibiotic therapy and I recommend continuation of the oral doxycycline as well as the topical clindamycin. She follows with dermatology for this. At this time there is no indication for further emergent workup as there is no evidence of cellulitis or overwhelming infection. Medical Records Medical records reviewed: Yes I reviewed the patient's medical records. Quality:CAOH Health Related Social Needs: Health related social needs details no reported proble ms. [place] All Active Problems Pain in right axilla (Acute) Hostile behavior (Acute) Hydradenitis (Acute) Breast pain, left (Acute) Unspecified open wound of left breast, initial encounter (Acute) Diarrhea (Acute) Palpable mass of soft tissue of knee (Acute) Low HDL (under 40) (Acute) Obesity without serious comorbidity (Acute) Hidradenitis suppurativa (Acute) bilateral, managed at [facility] derm. Pending Humira start. [facility] did pain clinic referral. Bilateral ovarian cysts (Chronic) seen on multiple imaging studies Loin pain hematuria syndrome (Acute) never officially diagnosed by product development Lymphedema of left lower extremity (Chronic) Anxiety (Acute 02/11/13) panic Medical History Anesthesia complication Patient with severe bradycardia with sugammadex reversal requiring compressions History of tobacco abuse quit 01/2022 History of renal calculi Endometriosis, unspecified LAPROSCOPY 2009 hysterect 2019 on OC for control Hepatomegaly Vitamin D deficiency Anemia Hepatic steatosis Surgical History S/P laparoscopic appendectomy S/P laparoscopy (2009) stage 1 endometriosis S/P laparoscopic assisted vaginal hysterectomy (LAVH) ovaries intact Hx of hand surgery L hand, pt. reports nerves were fixed Status post endovenous radiofrequency ablation (RFA) of saphenous vein for venous insufficiency 09/06/2018 wisdom teeth extraction Extracorporeal shock wave lithotripsy EGD - MAC Family History Mother Diabetes Heart disease Hyperlipidemia Father Colon cancer Heart disease Hyperlipidemia Sister Hyperlipidemia Grandfather Diabetes Grandfather Diabetes Hyperlipidemia Asthma Grandmother Diabetes Personal history of malignant neoplasm Breast Heart disease Hyperlipidemia Grandmother No problems noted. 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 Pets and animals: Yes Pets and animals: dog(s) Sexually active: Yes Do you think of yourself as: straight/heterosexual Current gender identity: female What is your relationship status?: never How often do you talk on the phone with friends or family?: three or more times per week How often do you get together with friends or relatives?: once per week How often do you attend anabaptism or pentecostal services?: 1-3 times per year Do you belong to any clubs or organized social groups?: no Panel score (0-1 are the most socially isolated patients): 1 What type of physical activity do you participate in: other Duration: > 90 minutes/day Frequency: 5-6 times per week Melida/Christian: None Do you feel safe at home: Yes Do you feel safe in your relationship?: Yes
== END 2023-06-29 13:26 | disposition home or self-care (01) ==
PROVIDERS: Emergency Provider Emergency Medicine; PCP Nurse Practitioner Family
DX: M79.621 Pain in right upper arm (principal); Z86.61 Personal history of infections of the central nervous system
CPT/HCPCS: 99282; 99283

== ENCOUNTER 2023-07-09 08:29 | Emergency (ER) | payer MEDICAID, SELFPAY ==
[2023-07-09 08:34] VITALS: BP 175/88; PULSE 78; RESP 16; TEMP 36.7; O2SAT 100
[2023-07-09 08:38] VITALS: PULSE 71; RESP 16; TEMP 36.7; O2SAT 100
--- NOTE | 2023-07-09 08:38 | W.ED.GENAD ---
Discharge Plan Disposition Patient Disposition: Home Condition: Stable Discharge Details Clinical Impression: Facial cellulitis Primary Care Provider: Veronica Zapata ED Provider: Moises Tellez Home Meds and New Rx's Prescriptions: New mupirocin 2 % ointment 1 applic topical TID Qty: 15 0RF clindamycin HCl 150 mg capsule 450 mg PO TID 10 Days Qty: 90 0RF No Action sertraline 50 mg tablet 50 mg PO HS Qty: 90 3RF trazodone 100 mg tablet 100 mg PO HS Qty: 90 4RF ondansetron 4 mg tablet,disintegrating 4 mg PO Q6H PRN (Reason: nausea and vomiting) Qty: 30 0RF lidocaine 5 % ointment 1 applic topical BID PRN (Reason: pain) Qty: 50 0RF triamcinolone acetonide 0.1 % cream 1 applic topical BID PRN ibuprofen 800 mg tablet 800 mg PO Q8H PRN (Reason: pain) Qty: 30 1RF Saccharomyces boulardii [Florastor] 250 mg capsule 250 mg PO BID Qty: 14 0RF Discharge Instructions Instructions: Clindamycin (By mouth), Mupirocin (On the skin), Cellulitis (ED) Additional Instructions: You were seen in the emergency department for likely early developing cellulitis due to a pimple. Please perform hot compresses 3 times per day as we discussed. You may try this alternative topical mupirocin that I have prescribed and sent to [facility] in [place]. I have also sent oral antibiotics, I would encourage you to attempt conservative management with hot compresses and topical antibiotics before having them fill your clindamycin as you are frequently on antibiotics and this has negative consequences for your gut health. Please return to the ER for any inability to move your jaw, severe increase in swelling and redness with fluid-filled sensation to palpation to the area. Referrals: Veronica Zapata [Primary Care Provider] - [facility] General Date/Time Provider Initiated Documentation: 07/09/23 08:36. HPI Narrative: 37 year-old female presents to ED today by POV/ambulating with a chief complaint of feels she could be developing a facial abscess after popping a pimple on her L cheek/chin with onset over the past day or two. Quality described as very tender, no radiation to fever, dysphagia, trismus, vocal changes, drainage of pus, large swelling, erythema. Severity is described as 9/10. Palliating factors include nothing specific attempted. Provoking factors include frequent abscesses' has hidradenitis. Patient not anticoagulated. Related Data Home Medications Medication Instructions Recorded Confirmed ibuprofen 800 mg tablet 800 mg PO Q8H PRN pain #30 tabs 02/27/20 07/09/23 lidocaine 5 % topical ointment 1 applic topical BID PRN pain #50 01/13/22 07/09/23 grams Saccharomyces boulardii 250 mg 250 mg PO BID #14 caps 05/01/22 07/09/23 capsule (Florastor) sertraline 50 mg tablet 50 mg PO HS #90 tabs 05/04/22 07/09/23 trazodone 100 mg tablet 100 mg PO HS #90 tabs 05/04/22 07/09/23 ondansetron 4 mg disintegrating 4 mg PO Q6H PRN nausea and 12/07/22 07/09/23 tablet vomiting #30 tabs triamcinolone acetonide 0.1 % 1 applic topical BID PRN 04/13/23 07/09/23 topical cream clindamycin HCl 150 mg capsule 450 mg (3 x 150 mg) PO TID 07/09/23 cellulitis 10 days #90 caps mupirocin 2 % topical ointment 1 applic topical TID #15 grams 07/09/23 Previous Rx's Medication Instructions Recorded ibuprofen 800 mg tablet 800 mg PO Q8H PRN pain #30 tabs 02/27/20 lidocaine 5 % topical ointment 1 applic topical BID PRN pain #50 01/13/22 grams Saccharomyces boulardii 250 mg 250 mg PO BID #14 caps 05/01/22 capsule (Florastor) sertraline 50 mg tablet 50 mg PO HS #90 tabs 05/04/22 trazodone 100 mg tablet 100 mg PO HS #90 tabs 05/04/22 ondansetron 4 mg disintegrating 4 mg PO Q6H PRN nausea and 12/07/22 tablet vomiting #30 tabs clindamycin HCl 150 mg capsule 450 mg (3 x 150 mg) PO TID 07/09/23 cellulitis 10 days #90 caps mupirocin 2 % topical ointment 1 applic topical TID #15 grams 07/09/23 Allergies Allergy/AdvReac Type Severity Reaction Status Date / Time cyclobenzaprine Allergy Intermediate Hives Unverified 07/09/23 08:33 [From Flexeril] cephalexin [Cephalexin] AdvReac Severe Abdominal Verified 07/09/23 08:33 Cramps sugammadex AdvReac Severe Other (See Verified 07/09/23 08:33 Comment) vancomycin AdvReac Severe diarrhea, Verified 07/09/23 08:33 redness acetaminophen AdvReac Intermediate Other (See Verified 07/09/23 08:33 Comment) Cephalosporins AdvReac Intermediate Diarrhea Verified 07/09/23 08:33 codeine phosphate AdvReac Intermediate Vomiting Verified 07/09/23 08:33 [From Tylenol-Codeine #3] ketorolac [From Toradol] AdvReac Intermediate Nausea Verified 07/09/23 08:33 silver AdvReac Intermediate Skin Rash Verified 07/09/23 08:33 [From Tegaderm AG Mesh] sulfamethoxazole AdvReac Intermediate Skin Rash Verified 07/09/23 08:33 [From Bactrim] tramadol AdvReac Intermediate Diarrhea Verified 07/09/23 08:33 trimethoprim [From Bactrim] AdvReac Intermediate Skin Rash Verified 07/09/23 08:33 General Stated Complaint: Cellulitis HALINA: 5 Review of Systems All systems reviewed & are unremarkable except as noted in HPI and below Exam Narrative Exam Narrative: GENERAL APPEARANCE: Well-nourished, non-toxic, awake and alert, atraumatic, no acute distress. SKIN: Warm, pink, dry, resolving pimple to L chin, no large swelling, no fluctuance, no erythema, no visible dental asbcesses, no trismus. HEAD: Normocephalic, atraumatic, normal hair distribution for gender/age. EYES: Normal conjunctiva, no exudates on lids/lashes. ENT: Nares patent, no circumoral cyanosis, no facial swelling NECK: Supple, trachea midline, painless cervical ROM. LUNGS/CHEST: Non-labored respirations, normal A/P diameter, symmetrical expansion, no chest wall deformity HEART (CV/PV): No peripheral edema, no JVD. ABDOMEN: Soft, non-distended, no guarding. MSK: Normal ROM, no swelling/deformity to bilateral UEs or LEs, moving all extremities without weakness, no cyanosis, spine midline without tenderness, normal curvature. NEURO: Mental Status AAOx4 - alert to person, place, time, events No facial droop, no forehead involvement. Motor: No focal weakness - strength 5/5 in bilateral UEs and LEs, proximal and distal, symmetric. Sensory: sensation intact to light touch globally. Gait normal: patient ambulated without ataxia into ED room. PSYCH: euthymic, cooperative, pleasant, appropriate speech Course Vital Signs Vital signs: Vital Signs Temperature 36.7 C 07/09/23 08:34 Pulse 78 07/09/23 08:34 Respiratory Rate 16 07/09/23 08:34 Blood Pressure 175/88 H 07/09/23 08:34 Pulse Oximetry 100 07/09/23 08:34 Temperature 36.7 C 07/09/23 08:34 Temperature Source Temporal Artery Scan 07/09/23 08:34 Pulse 78 07/09/23 08:34 Respiratory Rate 16 07/09/23 08:34 Blood Pressure 175/88 H 07/09/23 08:34 Blood Pressure Position Sitting 07/09/23 08:34 Pulse Oximetry 100 07/09/23 08:34 Oxygen Delivery Method Room Air 07/09/23 08:34 Oxygen Flow Rate 0 07/09/23 08:34 Pain Level 9 07/09/23 08:34 Medical Decision Making This dictation utilizes [id number] dictation software and may contain unedited grammatical errors. 37 y/o F presents to ED today with a chief complaint of popped a pimple on her chin, now feels she could be developing an abscess - history of hidradenitis suppurtiva. No focal erythema or swelling, no drainage, no trismus or vocal changes. Patients' medical history: Hidradenitis suppurativa. Family and social history: noncontributory. Pertinent exam findings / vital signs include SKIN: Warm, pink, dry, resolving pimple to L chin, no large swelling, no fluctuance, no erythema, no visible dental asbcesses, no trismus.. Differential / pathologies of concern include resolving simple skin pimple, mild facial cellulitis, not abscess. Diagnostic studies of: -none. Interventions of: -counseled on topical mupirocin, provided PO clindamycin but counseled to treat conservatively prior to filling oral ABX. ED Course/Assessment/Plan: 37-year-old female frequently seen for hidradenitis suppurativa presents after popping a pimple and feels she is developing an abscess, there is no fluctuance to the area of her left oquendo where there is a resolving pimple, counseled on hot compresses and possible topical mupirocin which was provided by prescription prior to failing oral antibiotics of clindamycin. Counseled the patient for strict return criteria for any severe increase in swelling, erythema, trismus, vocal changes, neck swelling. Findings not consistent with severe cellulitis, abscess. Disposition of facial cellulitis. Patient verbalized understanding of the plan and return to ED criteria and engaged in shared decision making. Medical Records Medical records reviewed: Yes I reviewed the patient's medical records. Quality:SDOH Health Related Social Needs: Health related social needs details no reported problems. PFSH All Active Problems (Updated 07/09/23 @ 08:46 by REESE Rand) Facial cellulitis (Acute) Pain in right axilla (Acute) Hostile behavior (Acute) Breast pain, left (Acute) Unspecified open wound of left breast, initial encounter (Acute) Diarrhea (Acute) Palpable mass of soft tissue of knee (Acute) Low HDL (under 40) (Acute) Obesity without serious comorbidity (Acute) Hidradenitis suppurativa (Acute) bilateral, [place] [facility] [place] Humira [place] [facility] [place]. Bilateral ovarian cysts (Chronic) seen on multiple imaging studies Loin pain hematuria syndrome (Acute) never officially diagnosed by dermatology physician assistant Lymphedema of left lower extremity (Chronic) Anxiety (Acute 02/11/13) panic Medical History Anesthesia complication Patient with severe bradycardia with sugammadex reversal requiring compressions History of tobacco abuse quit 01/2022 History of renal calculi Endometriosis, unspecified LAPROSCOPY 2009 hysterect 2019 on OC for control Hepatomegaly Vitamin D deficiency Anemia Hepatic steatosis Surgical History S/P laparoscopic appendectomy S/P laparoscopy (2009) stage 1 endometriosis S/P laparoscopic assisted vaginal hysterectomy (LAVH) ovaries intact Hx of hand surgery L hand, pt. reports nerves were fixed Status post endovenous radiofrequency ablation (RFA) of saphenous vein for venous insufficiency 09/06/2018 wisdom teeth extraction Extracorporeal shock wave lithotripsy EGD - MAC Family History Mother Diabetes Heart disease Hyperlipidemia Father Colon cancer Heart disease Hyperlipidemia Sister Hyperlipidemia Grandfather Diabetes Grandfather Diabetes Hyperlipidemia Asthma Grandmother Diabetes Personal history of malignant neoplasm Breast Heart disease Hyperlipidemia Grandmother No problems noted. 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 Pets and animals: Yes Pets and animals: dog(s) Sexually active: Yes Do you think of yourself as: straight/heterosexual Current gender identity: female What is your relationship status?: never How often do you talk on the phone with friends or family?: three or more times per week How often do you get together with friends or relatives?: once per week How often do you attend gnosticist or pentecostalism services?: 1-3 times per year Do you belong to any clubs or organized social groups?: no Panel score (0-1 are the most socially isolated patients): 1 What type of physical activity do you participate in: other Duration: > 90 minutes/day Frequency: 5-6 times per week Melida/Yazidi: None Do you feel safe at home: Yes Do you feel safe in your relationship?: Yes
[2023-07-09 08:43] VITALS: BP 175/88; PULSE 78; RESP 16; TEMP 36.7; O2SAT 100
[2023-07-09 08:47] VITALS: PULSE 71; RESP 16; TEMP 36.7; O2SAT 100
== END 2023-07-09 08:52 | disposition home or self-care (01) ==
PROVIDERS: Emergency Provider Physician Assistant; PCP Nurse Practitioner Family
DX: L03.211 Cellulitis of face (principal); Z87.891 Personal history of nicotine dependence
CPT/HCPCS: 99283

== ENCOUNTER 2023-07-12 14:52 | Emergency (ER) | payer MEDICAID, SELFPAY ==
[2023-07-12 14:56] VITALS: BP 144/84; PULSE 85; RESP 16; TEMP 37.1; O2SAT 100
--- NOTE | 2023-07-12 15:03 | ED.PROG_ITS ---
Date of service: 07/12/23 Time of Service: 15:03 Medical Decision Making 37-year-old female well-known to the department presents again after being seen the other day by myself for a mild pimple on her left cheek with some mild erythema and induration. We discussed hot compresses at that time as there appeared to be no abscess, I did provide her with mupirocin topical antibiotic. She states that she also has some hidradenitis suppurative lesions which are known to be chronic that need to be drained. She is managing her secretions well and her vitals are nontoxic she is afebrile, her cheek swelling does not appear to be any worse than it was days ago and appears to be a very superficial lesion without need for drainage. The patient had previously asked to see a different physician when Dr. Fabian had seen her which I happily picked up but stated that according to standard of care I do not drain hidradenitis suppurativa lesions here in the emergency department as these are only cured by excision at surgical visit. Patient is well familiar with this condition and has topical clindamycin at home. Patient is known to frequently ask for narcotic pain medicines for superficial skin conditions. She then asked to see another physician. Medical Records Medical records reviewed: Yes I reviewed the patient's medical records. Quality:SDOH Health Related Social Needs: Health related social needs details no reported proble ms. Discharge Plan Discharge Details Chief Complaint: Cellulitis Primary Care Provider: Veronica Zapata ED Provider: oMises Tellez Home Meds and New Rx's Prescriptions: No Action sertraline 50 mg tablet 50 mg PO HS Qty: 90 3RF trazodone 100 mg tablet 100 mg PO HS Qty: 90 4RF ondansetron 4 mg tablet,disintegrating 4 mg PO Q6H PRN (Reason: nausea and vomiting) Qty: 30 0RF lidocaine 5 % ointment 1 applic topical BID PRN (Reason: pain) Qty: 50 0RF triamcinolone acetonide 0.1 % cream 1 applic topical BID PRN doxycycline hyclate 100 mg capsule 100 mg PO BID Patient Comments: TAKE ONE CAPSULE BY MOUTH TWO TIMES A DAY FOR 10 DAYS ibuprofen 800 mg tablet 800 mg PO Q8H PRN (Reason: pain) Qty: 30 1RF Saccharomyces boulardii [Florastor] 250 mg capsule 250 mg PO BID Qty: 14 0RF mupirocin 2 % ointment 1 applic topical TID Qty: 15 0RF clindamycin HCl 150 mg capsule 450 mg PO TID 10 Days Qty: 90 0RF
--- NOTE | 2023-07-12 15:35 | ED.GENADUL_ITS ---
Discharge Plan Disposition Patient Disposition: Home Condition: Stable Discharge Details Clinical Impression: Face lesion Primary Care Provider: Veronica Zapata ED Provider: Austin Quan Home Meds and New Rx's Prescriptions: Continued sertraline 50 mg tablet 50 mg PO HS Qty: 90 3RF trazodone 100 mg tablet 100 mg PO HS Qty: 90 4RF ondansetron 4 mg tablet,disintegrating 4 mg PO Q6H PRN (Reason: nausea and vomiting) Qty: 30 0RF lidocaine 5 % ointment 1 applic topical BID PRN (Reason: pain) Qty: 50 0RF triamcinolone acetonide 0.1 % cream 1 applic topical BID PRN doxycycline hyclate 100 mg capsule 100 mg PO BID Patient Comments: TAKE ONE CAPSULE BY MOUTH TWO TIMES A DAY FOR 10 DAYS ibuprofen 800 mg tablet 800 mg PO Q8H PRN (Reason: pain) Qty: 30 1RF Saccharomyces boulardii [Florastor] 250 mg capsule 250 mg PO BID Qty: 14 0RF mupirocin 2 % ointment 1 applic topical TID Qty: 15 0RF clindamycin HCl 150 mg capsule 450 mg PO TID 10 Days Qty: 90 0RF Discharge Instructions Additional Instructions: Was no drainable abscess on exam or ultrasound today. Lesion on her face appears to be a pimple that will likely other resolve on its own or start draining. Using warm compresses frequently on the lesion should help it resolve quicker. With your primary care provider if not better in 1 week Return to the emergency department if you feel more ill or feel you are suffering from an emergent medical condition. HPI General Mode of arrival: ambulatory . Date/Time Provider Initiated Documentation: 07/12/23 14:52 . Limitations to Documentation: no limitations . Information obtained by: patient . History of Present Illness 37 year old F presents to the emergency department with the chief complaint of lesion on cheek, described as mild, Patient started experiencing this day(s) (5) and it has been constant. No relieving factors improve symptom(s), No exacerbating factors reported . Patient notes denies fever/chills. Patient did receive the following treatments prior to arrival, none Related Data Home Medications Medication Instructions Recorded Confirmed ibuprofen 800 mg tablet 800 mg PO Q8H PRN pain #30 tabs 02/27/20 07/12/23 lidocaine 5 % topical ointment 1 applic topical BID PRN pain #50 01/13/22 07/12/23 grams Saccharomyces boulardii 250 mg 250 mg PO BID #14 caps 05/01/22 07/12/23 capsule (Florastor) sertraline 50 mg tablet 50 mg PO HS #90 tabs 05/04/22 07/12/23 trazodone 100 mg tablet 100 mg PO HS #90 tabs 05/04/22 07/12/23 ondansetron 4 mg disintegrating 4 mg PO Q6H PRN nausea and 12/07/22 07/12/23 tablet vomiting #30 tabs triamcinolone acetonide 0.1 % 1 applic topical BID PRN 04/13/23 07/12/23 topical cream clindamycin HCl 150 mg capsule 450 mg (3 x 150 mg) PO TID 07/09/23 07/12/23 cellulitis 10 days #90 caps mupirocin 2 % topical ointment 1 applic topical TID #15 grams 07/09/23 07/12/23 doxycycline hyclate 100 mg capsule 100 mg PO BID 07/12/23 07/12/23 Previous Rx's Medication Instructions Recorded ibuprofen 800 mg tablet 800 mg PO Q8H PRN pain #30 tabs 02/27/20 lidocaine 5 % topical ointment 1 applic topical BID PRN pain #50 01/13/22 grams Saccharomyces boulardii 250 mg 250 mg PO BID #14 caps 05/01/22 capsule (Florastor) sertraline 50 mg tablet 50 mg PO HS #90 tabs 05/04/22 trazodone 100 mg tablet 100 mg PO HS #90 tabs 05/04/22 ondansetron 4 mg disintegrating 4 mg PO Q6H PRN nausea and 12/07/22 tablet vomiting #30 tabs clindamycin HCl 150 mg capsule 450 mg (3 x 150 mg) PO TID 07/09/23 cellulitis 10 days #90 caps mupirocin 2 % topical ointment 1 applic topical TID #15 grams 07/09/23 Allergies Allergy/AdvReac Type Severity Reaction Status Date / Time cyclobenzaprine Allergy Intermediate Hives Unverified 07/12/23 14:57 [From Flexeril] cephalexin [Cephalexin] AdvReac Severe Abdominal Verified 07/12/23 14:57 Cramps sugammadex AdvReac Severe Other (See Verified 07/12/23 14:57 Comment) vancomycin AdvReac Severe diarrhea, Verified 07/12/23 14:57 redness acetaminophen AdvReac Intermediate Other (See Verified 07/12/23 14:57 Comment) Cephalosporins AdvReac Intermediate Diarrhea Verified 07/12/23 14:57 codeine phosphate AdvReac Intermediate Vomiting Verified 07/12/23 14:57 [From Tylenol-Codeine #3] ketorolac [From Toradol] AdvReac Intermediate Nausea Verified 07/12/23 14:57 silver AdvReac Intermediate Skin Rash Verified 07/12/23 14:57 [From Tegaderm AG Mesh] sulfamethoxazole AdvReac Intermediate Skin Rash Verified 07/12/23 14:57 [From Bactrim] tramadol AdvReac Intermediate Diarrhea Verified 07/12/23 14:57 trimethoprim [From Bactrim] AdvReac Intermediate Skin Rash Verified 07/12/23 14:57 General Stated Complaint: Cellulitis HALINA: 4 Review of Systems All systems reviewed & are unremarkable except as noted in HPI and below Constitutional Constitutional: Denies chills, Denies fever(s) and Denies weakness ENT Ears, Nose, Mouth, and Throat: Denies change in voice Cardiovascular Cardiovascular: Denies chest pain and Denies dyspnea Respiratory Respiratory: Denies cough and Denies dyspnea Gastrointestinal Gastrointestinal: Denies abdominal pain, Denies nausea and Denies vomiting Neurologic Neurologic: Denies weakness Exam Const General: no acute distress Orientation: alert HENMT Ears: external ears normal General nose exam: external nose normal Mouth: moist mucous membranes Eyes General: appearance normal, both eyes and all related structures Neck Neck: normal visual inspection Resp Effort & Inspection: normal respiratory effort and able to speak in complete sentences Cardio Rate: regular rate Skin General skin exam: no erythema Neuro General: patient alert and patient oriented x3 Extrem General: normal to inspection Psych Mental Status: mental status grossly normal Course Vital Signs Vital signs: Vital Signs Temperature 37.1 C 07/12/23 14:56 Pulse 85 07/12/23 14:56 Respiratory Rate 16 07/12/23 14:56 Blood Pressure 144/84 H 07/12/23 14:56 Pulse Oximetry 100 07/12/23 14:56 Temperature 37.1 C 07/12/23 14:56 Temperature Source Temporal Artery Scan 07/12/23 14:56 Pulse 85 07/12/23 14:56 Respiratory Rate 16 07/12/23 14:56 Respiratory Effort Normal, Non-Labored 07/12/23 14:58 Blood Pressure 144/84 H 07/12/23 14:56 Blood Pressure Position Sitting 07/12/23 14:56 Pulse Oximetry 100 07/12/23 14:56 Oxygen Delivery Method Room Air 07/12/23 14:56 Oxygen Flow Rate 0 07/12/23 14:56 Pain Level 8 07/12/23 14:59 Medical Decision Making 37-year-old female who states she has a history of hidradenitis, presented with complaint of a lesion on her left cheek. She was seen on Monday in the ER put on topical antibiotics and was told to start clindamycin if not improving in a few days and started on Monday. Comes in with continued left cheek lesion. N uys any fevers or chills, think she also has some lesions in her armpits. She is alert only x 4 on arrival with no significant swelling of her face. She has a few millimeters of what feels like a small pimple on her left mid cheek, bedside ultrasound does not have any large abscess or evidence of cellulitis. Oropharynx is normal. In her armpits on the left she has a 1 mm hard mobile lesion is not fluctuant no erythema, has a similar lesion in her right armpit. She has no erythema of her face. Advised that her lesion on her face is likely either nodule or small pimple, will resolve on its own or start draining, do not feel any lab work or imaging indicated at this time. No findings on exam or history to suggest sepsis or more serious infection such as necrotizing fasciitis. She is stable for discharge, advised to follow-up with her primary care provider return precautions given Differential Diagnosis Differential Diagnosis: Pimple, nodule Medical Records Medical records reviewed: Yes I reviewed the patient's medical records. Quality:SDOH Health Related Social Needs: Health related social needs details no reported proble ms. [place] All Active Problems (Updated 07/12/23 @ 15:36 by Austin Quan MD) Face lesion (Acute) Facial cellulitis (Acute) Pain in right axilla (Acute) Breast pain, left (Acute) Unspecified open wound of left breast, initial encounter (Acute) Diarrhea (Acute) Palpable mass of soft tissue of knee (Acute) Low HDL (under 40) (Acute) Obesity without serious comorbidity (Acute) Hidradenitis suppurativa (Acute) bilateral, managed at [facility] derm. Pending Humira start. [facility] did pain clinic referral. Bilateral ovarian cysts (Chronic) seen on multiple imaging studies Loin pain hematuria syndrome (Acute) never officially diagnosed by sock lining stitcher Lymphedema of left lower extremity (Chronic) Anxiety (Acute 02/11/13) panic Medical History Anesthesia complication Patient with severe bradycardia with sugammadex reversal requiring compressions History of tobacco abuse quit 01/2022 History of renal calculi Endometriosis, unspecified LAPROSCOPY 2009 hysterect 2019 on OC for control Hepatomegaly Vitamin D deficiency Anemia Hepatic steatosis Surgical History S/P laparoscopic appendectomy S/P laparoscopy (2009) stage 1 endometriosis S/P laparoscopic assisted vaginal hysterectomy (LAVH) ovaries intact Hx of hand surgery L hand, pt. reports nerves were fixed Status post endovenous radiofrequency ablation (RFA) of saphenous vein for venous insufficiency 09/06/2018 wisdom teeth extraction Extracorporeal shock wave lithotripsy EGD - MAC Family History Mother Diabetes Heart disease Hyperlipidemia Father Colon cancer Heart disease Hyperlipidemia Sister Hyperlipidemia Grandfather Diabetes Grandfather Diabetes Hyperlipidemia Asthma Grandmother Diabetes Personal history of malignant neoplasm Breast Heart disease Hyperlipidemia Grandmother No problems noted. 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 Pets and animals: Yes Pets and animals: dog(s) Sexually active: Yes Do you think of yourself as: straight/heterosexual Current gender identity: female What is your relationship status?: never How often do you talk on the phone with friends or family?: three or more times per week How often do you get together with friends or relatives?: once per week How often do you attend moravian or anabaptist services?: 1-3 times per year Do you belong to any clubs or organized social groups?: no Panel score (0-1 are the most socially isolated patients): 1 What type of physical activity do you participate in: other Duration: > 90 minutes/day Frequency: 5-6 times per week Melida/Synagogue: None Do you feel safe at home: Yes Do you feel safe in your relationship?: Yes
[2023-07-12 15:56] VITALS: BP 141/92; PULSE 71; RESP 15; O2SAT 99
== END 2023-07-12 15:58 | disposition home or self-care (01) ==
PROVIDERS: Emergency Provider Emergency Medicine; PCP Nurse Practitioner Family
DX: L98.9 Disorder of the skin and subcutaneous tissue, unspecified (principal); R03.0 Elevated blood-pressure reading, without diagnosis of hypertension
CPT/HCPCS: 00123; 99282

== ENCOUNTER 2023-08-11 14:30 | Emergency (ER) | payer MEDICAID, SELFPAY ==
[2023-08-11 14:48] VITALS: PULSE 81; RESP 18; TEMP 37.2; O2SAT 98
--- NOTE | 2023-08-11 15:11 | ED.GENADUL_ITS ---
Discharge Plan Disposition Patient Disposition: Home Condition: Good Discharge Details Clinical Impression: Abscess of axilla, right Primary Care Provider: Veronica Zapata ED Provider: Moises Skinner Home Meds and New Rx's Prescriptions: New clindamycin HCl 150 mg capsule 450 mg PO QID 7 Days Qty: 84 0RF Continued sertraline 50 mg tablet 50 mg PO HS Qty: 90 3RF trazodone 100 mg tablet 100 mg PO HS Qty: 90 4RF ondansetron 4 mg tablet,disintegrating 4 mg PO Q6H PRN (Reason: nausea and vomiting) Qty: 30 0RF lidocaine 5 % ointment 1 applic topical BID PRN (Reason: pain) Qty: 50 0RF triamcinolone acetonide 0.1 % cream 1 applic topical BID PRN ibuprofen 800 mg tablet 800 mg PO Q8H PRN (Reason: pain) Qty: 30 1RF Saccharomyces boulardii [Florastor] 250 mg capsule 250 mg PO BID Qty: 14 0RF mupirocin 2 % ointment 1 applic topical TID Qty: 15 0RF Discontinued doxycycline hyclate 100 mg capsule 100 mg PO BID Patient Comments: TAKE ONE CAPSULE BY MOUTH TWO TIMES A DAY FOR 10 DAYS Discharge Instructions Instructions: Abscess (ED) Additional Instructions: At this time you have evidence of a small abscess in your right axilla. If t hese do not improve with the antibiotics you may need to have them lysed with a needle or scalpel. Please return if that occurs and you do not notice improvement. Please take the antibiotic as directed. Is been sent to your [facility] pharmacy. Please take Tylenol and Motrin for pain. Please take a probiotic to prevent/help reduce the risk of diarrhea. If you notice any worsening of your symptoms, or any new symptoms such as vomiting, diarrhea, fever, chills, shortness of breath, chest pain, numbness, weakness, or fainting , please return immediately to the emergency department for reevaluation. Please follow up with your primary care provider as soon as possible for reassessment and reevaluation. As always, it was a pleasure participating in your medical care today. Stand Alone Forms: Work Release Referrals: Veronica Zapata [Primary Care Provider] - HPI General Date/Time Provider Initiated Documentation: 08/11/23 14:40 . HPI Narrative: 37-year-old female with a past medical history of hidradenitis suppurativa, presents today for 2 lesions on her axillary right region. She denies fever or chills. She admits to mild pain in that area. No other complaints at this time. Related Data Home Medications Medication Instructions Recorded Confirmed ibuprofen 800 mg tablet 800 mg PO Q8H PRN pain #30 tabs 02/27/20 07/12/23 lidocaine 5 % topical ointment 1 applic topical BID PRN pain #50 01/13/22 07/12/23 grams Saccharomyces boulardii 250 mg 250 mg PO BID #14 caps 05/01/22 07/12/23 capsule (Florastor) sertraline 50 mg tablet 50 mg PO HS #90 tabs 05/04/22 07/12/23 trazodone 100 mg tablet 100 mg PO HS #90 tabs 05/04/22 07/12/23 ondansetron 4 mg disintegrating 4 mg PO Q6H PRN nausea and 12/07/22 07/12/23 tablet vomiting #30 tabs triamcinolone acetonide 0.1 % 1 applic topical BID PRN 04/13/23 07/12/23 topical cream mupirocin 2 % topical ointment 1 applic topical TID #15 grams 07/09/23 07/12/23 clindamycin HCl 150 mg capsule 450 mg (3 x 150 mg) PO QID 7 days 08/11/23 #84 caps Previous Rx's Medication Instructions Recorded ibuprofen 800 mg tablet 800 mg PO Q8H PRN pain #30 tabs 02/27/20 lidocaine 5 % topical ointment 1 applic topical BID PRN pain #50 01/13/22 grams Saccharomyces boulardii 250 mg 250 mg PO BID #14 caps 05/01/22 capsule (Florastor) sertraline 50 mg tablet 50 mg PO HS #90 tabs 05/04/22 trazodone 100 mg tablet 100 mg PO HS #90 tabs 05/04/22 ondansetron 4 mg disintegrating 4 mg PO Q6H PRN nausea and 12/07/22 tablet vomiting #30 tabs mupirocin 2 % topical ointment 1 applic topical TID #15 grams 07/09/23 clindamycin HCl 150 mg capsule 450 mg (3 x 150 mg) PO QID 7 days 08/11/23 #84 caps Allergies Allergy/AdvReac Type Severity Reaction Status Date / Time cyclobenzaprine Allergy Intermediate Hives Unverified 08/11/23 14:51 [From Flexeril] cephalexin [Cephalexin] AdvReac Severe Abdominal Verified 08/11/23 14:51 Cramps sugammadex AdvReac Severe Other (See Verified 08/11/23 14:51 Comment) vancomycin AdvReac Severe diarrhea, Verified 08/11/23 14:51 redness acetaminophen AdvReac Intermediate Other (See Verified 08/11/23 14:51 Comment) Cephalosporins AdvReac Intermediate Diarrhea Verified 08/11/23 14:51 codeine phosphate AdvReac Intermediate Vomiting Verified 08/11/23 14:51 [From Tylenol-Codeine #3] ketorolac [From Toradol] AdvReac Intermediate Nausea Verified 08/11/23 14:51 silver AdvReac Intermediate Skin Rash Verified 08/11/23 14:51 [From Tegaderm AG Mesh] sulfamethoxazole AdvReac Intermediate Skin Rash Verified 08/11/23 14:51 [From Bactrim] tramadol AdvReac Intermediate Diarrhea Verified 08/11/23 14:51 trimethoprim [From Bactrim] AdvReac Intermediate Skin Rash Verified 08/11/23 14:51 General Stated Complaint: Cellulitis HALINA: 3 Review of Systems All systems reviewed & are unremarkable except as noted in HPI and below Exam Narrative Exam Narrative: 1.Const: Well-nourished, Well-developed, appearing stated age 2.Eyes: PERRL, no conjunctival injection, and symmetrical lids. 3.ENT: Atraumatic external nose and ears. Moist MM. Neck: Symmetric, trachea midline, No thyromegaly. 4.CVS: +S1/S2, No murmurs or gallops. Peripheral pulses 2+ and equal in all extremities. Brisk capillary refill in all extremities. 5.RESP: Unlabored respiratory effort. Clear to auscultation bilaterally. No wheezes rales or rhonchi 6.GI: Soft, Nontender/Nondistended, No hepatosplenomegaly. No guarding or rebound. 7.MSK: Normocephalic/Atraumatic, Extremities w/o deformity or ttp No cyanosis or clubbing, Normal movement of all extremities 8.Skin: Warm, Dry. Right axillary region demonstrates 2 small punctate abs cess/cellulitis regions. Each 1 has about 7 mm in diameter. No purulent head. No fluctuance. No significant surrounding erythema. 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 Sensation grossly intact, no focal neurologic deficits. 10.Psych: (AAO) x3. Appropriate mood and affect Course Vital Signs Vital signs: Vital Signs Temperature 37.2 C 08/11/23 14:48 Pulse 81 08/11/23 14:48 Respiratory Rate 18 08/11/23 14:48 Pulse Oximetry 98 08/11/23 14:48 Temperature 37.2 C 08/11/23 14:48 Temperature Source Skin 08/11/23 14:48 Pulse 81 08/11/23 14:48 Respiratory Rate 18 08/11/23 14:48 Respiratory Effort Normal 08/11/23 14:50 Blood Pressure Position Sitting 08/11/23 14:48 Pulse Oximetry 98 08/11/23 14:48 Oxygen Delivery Method Room Air 08/11/23 14:48 Oxygen Flow Rate 0 08/11/23 14:48 Medical Decision Making 37-year-old female with a past medical history of hidradenitis suppurativa, presents today for 2 lesions on her axillary right region. She denies fever or chills. She admits to mild pain in that area. No other complaints at this time. Exam demonstrates 2 small lesions in the right axillary region, each 1 is about 7mm in diameter. No fluctuance. Bedside ultrasound does not show evidence of large fluid collection. Discussed risk and benefits of trial of needle I&D versus antibiotics. Patient has declined needle I&D, and requests antibiotics for the time being. I discussed with her that she may not have resolution with the antibiotics, and if she has worsening of her symptoms she needs to return immediately for drainage. Patient understands. Will give clindamycin for home use. Discussed red flags which return. I have extensively reviewed the treatment plan and discharge instructions with the patient. I have addressed all patient concerns at this time. The patient was made aware of what symptoms to monitor for that would warrant a return to the emergency department. Discussed the plan with the patient, they demonstrate verbal understanding and agreement with our assessment and plan at this time. The documentation in this chart was dictated using Circle[employer] dictation software. Please excuse any dictation errors. Quality:SDOH Health Related Social Needs: Health related social needs details no reported proble ms. [place] All Active Problems (Updated 08/11/23 @ 15:11 by Moises Skinner DO) Abscess of axilla, right (Acute) Face lesion (Acute) Breast pain, left (Acute) Unspecified open wound of left breast, initial encounter (Acute) Diarrhea (Acute) Palpable mass of soft tissue of knee (Acute) Low HDL (under 40) (Acute) Obesity without serious comorbidity (Acute) Hidradenitis suppurativa (Acute) bilateral, managed at [facility] derm. Pending Humira start. [facility] did pain clinic referral. Bilateral ovarian cysts (Chronic) seen on multiple imaging studies Loin pain hematuria syndrome (Acute) never officially diagnosed by laundry laborer Lymphedema of left lower extremity (Chronic) Anxiety (Acute 02/11/13) panic Medical History Anesthesia complication Patient with severe bradycardia with sugammadex reversal requiring compressions History of tobacco abuse quit 01/2022 History of renal calculi Endometriosis, unspecified LAPROSCOPY 2009 hysterect 2019 on OC for control Hepatomegaly Vitamin D deficiency Anemia Hepatic steatosis Surgical History S/P laparoscopic appendectomy S/P laparoscopy (2009) stage 1 endometriosis S/P laparoscopic assisted vaginal hysterectomy (LAVH) ovaries intact Hx of hand surgery L hand, pt. reports nerves were fixed Status post endovenous radiofrequency ablation (RFA) of saphenous vein for venous insufficiency 09/06/2018 wisdom teeth extraction Extracorporeal shock wave lithotripsy EGD - MAC Family History Mother Diabetes Heart disease Hyperlipidemia Father Colon cancer Heart disease Hyperlipidemia Sister Hyperlipidemia Grandfather Diabetes Grandfather Diabetes Hyperlipidemia Asthma Grandmother Diabetes Personal history of malignant neoplasm Breast Heart disease Hyperlipidemia Grandmother No problems noted. 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 Pets and animals: Yes Pets and animals: dog(s) Sexually active: Yes Do you think of yourself as: straight/heterosexual Current gender identity: female What is your relationship status?: never How often do you talk on the phone with friends or family?: three or more times per week How often do you get together with friends or relatives?: once per week How often do you attend buddhism or scientologist services?: 1-3 times per year Do you belong to any clubs or organized social groups?: no Panel score (0-1 are the most socially isolated patients): 1 What type of physical activity do you participate in: other Duration: > 90 minutes/day Frequency: 5-6 times per week Melida/Denominational: None Do you feel safe at home: Yes Do you feel safe in your relationship?: Yes POCUS Exam (ED) Limited Soft Tissue Exam DATE OF EXAM: 08/11/23 TIME OF EXAM: 15:24 PROVIDER THAT PERFORMED THE STUDY: Moises Skinner IS THIS A REPEAT EXAM DURING THIS ENCOUNTER: No LOCATION OF EXAM: Axilla/right side REASON FOR EXAM: Other (2 small early abscesses with no significant internal fluid collection) indication: 2 small early abscesses with no significant internal fluid collection Exam Complete
[2023-08-11 15:12] VITALS: PULSE 81; RESP 18; TEMP 37.2; O2SAT 98
== END 2023-08-11 15:23 | disposition home or self-care (01) ==
PROVIDERS: Emergency Provider Student in an Organized Health Care Education/Training Program; PCP Nurse Practitioner Family
DX: L02.411 Cutaneous abscess of right axilla (principal)
CPT/HCPCS: 76882; 99283

== ENCOUNTER 2023-09-26 16:07 | Emergency (ER) | payer MEDICAID, SELFPAY ==
[2023-09-26 16:29] VITALS: BP 120/72; PULSE 89; RESP 15; TEMP 36.9; O2SAT 97
--- NOTE | 2023-09-26 16:41 | W.ED.GENAD ---
Discharge Plan Disposition Patient Disposition: Home Condition: Good Discharge Details Clinical Impression: Cellulitis of external nose Primary Care Provider: Veronica Zapata ED Provider: Moises Skinner Home Meds and New Rx's Prescriptions: New clindamycin HCl 150 mg capsule 450 mg PO QID 7 Days Qty: 84 0RF No Action sertraline 50 mg tablet 50 mg PO HS Qty: 90 3RF trazodone 100 mg tablet 100 mg PO HS Qty: 90 4RF ondansetron 4 mg tablet,disintegrating 4 mg PO Q6H PRN (Reason: nausea and vomiting) Qty: 30 0RF lidocaine 5 % ointment 1 applic topical BID PRN (Reason: pain) Qty: 50 0RF triamcinolone acetonide 0.1 % cream 1 applic topical BID PRN ibuprofen 800 mg tablet 800 mg PO Q8H PRN (Reason: pain) Qty: 30 1RF Saccharomyces boulardii [Florastor] 250 mg capsule 250 mg PO BID Qty: 14 0RF mupirocin 2 % ointment 1 applic topical TID Qty: 15 0RF Discharge Instructions Instructions: Cellulitis (Skin Infection), Adult ED Additional Instructions: At this time you have evidence of mild cellulitis on your nose. It is likely based on a MRSA type organism secondary to your history. Please take the clindamycin as directed. You have been given a small bottle here and a prescription to your pharmacy as well. Please continue to rub the mupirocin ointment on the internal aspect of your nose. Please take a probiotic while on the antibiotic. If you notice any worsening of your symptoms, or any new symptoms such as vomiting, diarrhea, fever, chills, shortness of breath, chest pain, numbness, weakness, or fainting , please return immediately to the emergency department for reevaluation. Please follow up with your primary care provider as soon as possible for reassessment and reevaluation. As always, it was a pleasure participating in your medical care today. Referrals: Veronica Zapata [Primary Care Provider] - Discharge Data Discharge Date/Time-TO BE ENTERED AT DEPARTURE: 09/26/23 17:33 HPI General Date/Time Provider Initiated Documentation: 09/26/23 16:35. HPI Narrative: Pleasant 38-year-old female with a past medical history hidradenitis suppurativa, MRSA, presents today for lesion on her nose. Patient's nose has become swollen, erythematous and tender over the last 2 days. She denies any trauma. She states it feels similar to previous infection of impetigo/erysipelas that she has had in the past. She has been using mupirocin but this has not been helping. She denies any other needs at this time. No other modifying factors. No fever or chills. No other lesions. Related Data Home Medications Medication Instructions Recorded Confirmed ibuprofen 800 mg tablet 800 mg PO Q8H PRN pain #30 tabs 02/27/20 07/12/23 lidocaine 5 % topical ointment 1 applic topical BID PRN pain #50 01/13/22 07/12/23 grams Saccharomyces boulardii 250 mg 250 mg PO BID #14 caps 05/01/22 07/12/23 capsule (Florastor) sertraline 50 mg tablet 50 mg PO HS #90 tabs 05/04/22 07/12/23 trazodone 100 mg tablet 100 mg PO HS #90 tabs 05/04/22 07/12/23 ondansetron 4 mg disintegrating 4 mg PO Q6H PRN nausea and 12/07/22 07/12/23 tablet vomiting #30 tabs triamcinolone acetonide 0.1 % 1 applic topical BID PRN 04/13/23 07/12/23 topical cream mupirocin 2 % topical ointment 1 applic topical TID #15 grams 07/09/23 07/12/23 clindamycin HCl 150 mg capsule 450 mg (3 x 150 mg) PO QID 7 days 09/26/23 #84 caps Previous Rx's Medication Instructions Recorded ibuprofen 800 mg tablet 800 mg PO Q8H PRN pain #30 tabs 02/27/20 lidocaine 5 % topical ointment 1 applic topical BID PRN pain #50 01/13/22 grams Saccharomyces boulardii 250 mg 250 mg PO BID #14 caps 05/01/22 capsule (Florastor) sertraline 50 mg tablet 50 mg PO HS #90 tabs 05/04/22 trazodone 100 mg tablet 100 mg PO HS #90 tabs 05/04/22 ondansetron 4 mg disintegrating 4 mg PO Q6H PRN nausea and 12/07/22 tablet vomiting #30 tabs mupirocin 2 % topical ointment 1 applic topical TID #15 grams 07/09/23 clindamycin HCl 150 mg capsule 450 mg (3 x 150 mg) PO QID 7 days 09/26/23 #84 caps Allergies Allergy/AdvReac Type Severity Reaction Status Date / Time cyclobenzaprine Allergy Intermediate Hives Unverified 08/11/23 14:51 [From Flexeril] cephalexin [Cephalexin] AdvReac Severe Abdominal Verified 08/11/23 14:51 Cramps sugammadex AdvReac Severe Other (See Verified 08/11/23 14:51 Comment) vancomycin AdvReac Severe diarrhea, Verified 08/11/23 14:51 redness acetaminophen AdvReac Intermediate Other (See Verified 08/11/23 14:51 Comment) Cephalosporins AdvReac Intermediate Diarrhea Verified 08/11/23 14:51 codeine phosphate AdvReac Intermediate Vomiting Verified 08/11/23 14:51 [From Tylenol-Codeine #3] ketorolac [From Toradol] AdvReac Intermediate Nausea Verified 08/11/23 14:51 silver AdvReac Intermediate Skin Rash Verified 08/11/23 14:51 [From Tegaderm AG Mesh] sulfamethoxazole AdvReac Intermediate Skin Rash Verified 08/11/23 14:51 [From Bactrim] tramadol AdvReac Intermediate Diarrhea Verified 08/11/23 14:51 trimethoprim [From Bactrim] AdvReac Intermediate Skin Rash Verified 08/11/23 14:51 General Stated Complaint: RashLesion HALINA: 4 Review of Systems All systems reviewed & are unremarkable except as noted in HPI and below Exam Narrative Exam Narrative: 1.Const: Well-nourished, Well-developed, appearing stated age 2.Eyes: PERRL, no conjunctival injection, and symmetrical lids. 3.ENT: Atraumatic external nose and ears. Moist MM. Neck: Symmetric, trachea midline, No thyromegaly. Patient does have mild erythema and swelling on the nose. No palpable abscess. No area of fluctuance. Mild induration. No focal head. No evidence of extension to the cheeks or evidence of erysipelas. No crusting to suggest impetigo. 4.CVS: +S1/S2, No murmurs or gallops. Peripheral pulses 2+ and equal in all extremities. Brisk capillary refill in all extremities. 5.RESP: Unlabored respiratory effort. Clear to auscultation bilaterally. No wheezes rales or rhonchi 6.GI: Soft, Nontender/Nondistended, No hepatosplenomegaly. No guarding or rebound. 7.MSK: Normocephalic/Atraumatic, Extremities w/o deformity or ttp No cyanosis or clubbing, Normal movement of all extremities 8.Skin: Warm, Dry. No rashes or lesions. 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 Sensation grossly intact, no focal neurologic deficits. 10.Psych: (AAO) x3. Appropriate mood and affect Course Vital Signs Vital signs: Vital Signs Temperature 36.9 C 09/26/23 16:29 Pulse 89 09/26/23 16:29 Respiratory Rate 15 09/26/23 16:29 Blood Pressure 120/72 09/26/23 16:29 Pulse Oximetry 97 09/26/23 16:29 Temperature 36.9 C 09/26/23 16:29 Temperature Source Temporal Artery Scan 09/26/23 16:29 Pulse 89 09/26/23 16:29 Respiratory Rate 15 09/26/23 16:29 Respiratory Effort Normal 09/26/23 16:33 Blood Pressure 120/72 09/26/23 16:29 Blood Pressure Position Sitting 09/26/23 16:29 Pulse Oximetry 97 09/26/23 16:29 Oxygen Delivery Method Room Air 09/26/23 16:29 Oxygen Flow Rate 0 09/26/23 16:29 Pain Level 8 09/26/23 16:29 Medical Decision Making Pleasant 38-year-old female with a past medical history hidradenitis suppurativa, MRSA, presents today for lesion on her nose. Patient's nose has become swollen, erythematous and tender over the last 2 days. She denies any trauma. She states it feels similar to previous infection of impetigo/erysipelas that she has had in the past. She has been using mupirocin but this has not been helping. She denies any other needs at this time. No other modifying factors. No fever or chills. No other lesions. Patient does have mild erythema and swelling on the nose. No palpable abscess. No area of fluctuance. Mild induration. No focal head. No evidence of extension to the cheeks or evidence of erysipelas. No crusting to suggest impetigo. No abscess requiring drainage. Patient will be started on clindamycin which she has responded well to in the past. Will recommend continued mupirocin application internally to the nose. Otherwise patient is notably stable. No indication for IV antibiotics at this time based on current clinical assessment. Patient stable for discharge. Discussed red flags for which to return. I have extensively reviewed the treatment plan and discharge instructions with the patient. I have addressed all patient concerns at this time. The patient was made aware of what symptoms to monitor for that would warrant a return to the emergency department. Discussed the plan with the patient, they demonstrate verbal understanding and agreement with our assessment and plan at this time. The documentation in this chart was dictated using [employer] dictation software. Please excuse any dictation errors. Quality:SDOH Health Related Social Needs: Health related social needs details no reported problems. [facility] All Active Problems (Updated 09/26/23 @ 16:42 by Moises Skinner DO) Cellulitis of external nose (Acute) Breast pain, left (Acute) Unspecified open wound of left breast, initial encounter (Acute) Diarrhea (Acute) Palpable mass of soft tissue of knee (Acute) Low HDL (under 40) (Acute) Obesity without serious comorbidity (Acute) Hidradenitis suppurativa (Acute) bilateral, managed at [facility] derm. Pending Humira start. [facility] did pain clinic referral. Bilateral ovarian cysts (Chronic) seen on multiple imaging studies Loin pain hematuria syndrome (Acute) never officially diagnosed by cpa tax Lymphedema of left lower extremity (Chronic) Anxiety (Acute 02/11/13) panic Medical History Anesthesia complication Patient with severe bradycardia with sugammadex reversal requiring compressions History of tobacco abuse quit 01/2022 History of renal calculi Endometriosis, unspecified LAPROSCOPY 2009 hysterect 2019 on OC for control Hepatomegaly Vitamin D deficiency Anemia Hepatic steatosis Surgical History S/P laparoscopic appendectomy S/P laparoscopy (2009) stage 1 endometriosis S/P laparoscopic assisted vaginal hysterectomy (LAVH) ovaries intact Hx of hand surgery L hand, pt. reports nerves were fixed Status post endovenous radiofrequency ablation (RFA) of saphenous vein for venous insufficiency 09/06/2018 wisdom teeth extraction Extracorporeal shock wave lithotripsy EGD - MAC Family History Mother Diabetes Heart disease Hyperlipidemia Father Colon cancer Heart disease Hyperlipidemia Sister Hyperlipidemia Grandfather Diabetes Grandfather Diabetes Hyperlipidemia Asthma Grandmother Diabetes Personal history of malignant neoplasm Breast Heart disease Hyperlipidemia Grandmother No problems noted. 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 Pets and animals: Yes Pets and animals: dog(s) Sexually active: Yes Do you think of yourself as: straight/heterosexual Current gender identity: female What is your relationship status?: never How often do you talk on the phone with friends or family?: three or more times per week How often do you get together with friends or relatives?: once per week How often do you attend gnosticism or scientologist services?: 1-3 times per year Do you belong to any clubs or organized social groups?: no Panel score (0-1 are the most socially isolated patients): 1 What type of physical activity do you participate in: other Duration: > 90 minutes/day Frequency: 5-6 times per week Melida/Muslim: None Do you feel safe at home: Yes Do you feel safe in your relationship?: Yes
[2023-09-26] MEDS: Clindamycin 150 MG CAP, 12 CAPS/BTL 450 MG PO (17:05)
== END 2023-09-26 17:33 | disposition home or self-care (01) ==
PROVIDERS: Emergency Provider Student in an Organized Health Care Education/Training Program; PCP Nurse Practitioner Family
DX: J34.0 Abscess, furuncle and carbuncle of nose (principal)
CPT/HCPCS: 99283

== ENCOUNTER 2023-10-06 20:41 | Outpatient (REF) | payer MEDICAID, SELFPAY ==
[2023-10-06 19:24] LABS: Abs Immature Grans 0.05 10^3/uL (0.0-0.06); Absolute Basophil Count 0.05 10^3/uL (0.0-0.2); Absolute Eosinophil Count 0.09 10^3/uL (0.0-0.7); Absolute Lymphocyte Count 2.43 10^3/uL (1.2-3.4); Absolute Monocyte Count 0.53 10^3/uL (0.1-0.8); Absolute Neutrophil Count 5.73 10^3/uL (1.2-6.7); Basophils % 0.6 %; HCT 41.3 % (36.0-46.0); HGB 14.2 g/dL (11.2-15.7); Immature Grans % 0.6 %; Lymphocytes % 27.4 %; MCH 33.5 pg (27.0-33.0); MCHC 34.4 % (32.0-36.0); MCV 97 fL (80-95); MPV 10.8 fL (8.0-11.0); Neutrophils % 64.4 %; Platelet Count 227 10^3/uL (130-400); RBC 4.24 10^6/uL (3.93-5.22); RDW 12.3 % (11.7-14.6); RDW-SD 44.1 fL; WBC 8.88 10^3/uL (4.4-10.8)
[2023-10-06 19:57] LABS: Hemoglobin A1C 5.5 % (<5.7)
[2023-10-06 20:06] LABS: ALT 17 U/L (14-59); AST < 5 U/L (15-37); Albumin 3.9 g/dL (3.4-5.0); Alkaline Phosphatase 87 U/L (46-116); Anion Gap 8.4 mmol/L (3-11); BUN 9 mg/dL (7-18); Bilirubin, Total 0.22 mg/dL (0.2-1.0); CO2 28.6 mmol/L (21.0-32.0); CREATININE 0.8 mg/dL (0.55-1.02); Calculated LDL 120 mg/dL (<100); Chloride 105 mmol/L (98-107); Cholesterol 207 mg/dL (<200); Estimated GFR 97.26 (mL/min/1.73m2); Glucose 95 mg/dL (74-106); HDL Cholesterol 35 mg/dL (40-60); Potassium 4.1 mmol/L (3.5-5.1); Sodium 142 mmol/L (136-145); TSH (W/Ref FT4) 2.52 uIU/mL (0.36-3.74); Total Protein 7.3 g/dL (6.4-8.2); Triglyceride 261 mg/dL (<150); Vitamin D 25 Total 21.7 ng/mL (30-100)
[2023-10-09 10:53] LABS: HIV-1/2 Ag & Ab Screen Negative (Negative)
[2023-10-09 11:10] LABS: Hepatitis C Ab w Rflx HCV PCR Negative (Negative)
== END 2023-10-06 20:42 | disposition home or self-care (01) ==
LOC: NCHCN 20:41
PROVIDERS: PCP Nurse Practitioner Family; Visit Provider Nurse Practitioner Family
DX: Z00.00 Encounter for general adult medical examination without abnormal findings (principal)
CPT/HCPCS: 80053; 80061; 82306; 86803; 87389; 83036; 84443; 85025

== ENCOUNTER 2024-01-31 10:14 | Emergency (ER) | payer MEDICAID, SELFPAY ==
[2024-01-31 10:19] VITALS: BP 143/80; PULSE 76; RESP 18; TEMP 36.4; O2SAT 99
--- NOTE | 2024-01-31 10:56 | W.ED.GENAD ---
Discharge Plan Disposition Patient Disposition: Home Condition: Stable Discharge Details Clinical Impression: Abscess of axilla, left Primary Care Provider: Veronica Zapata ED Provider: Marina Moe Home Meds and New Rx's Prescriptions: New clindamycin HCl 150 mg capsule 450 mg PO TID 7 Days Qty: 63 0RF oxycodone 5 mg tablet 5 mg PO Q8H PRN (Reason: pain) 2 Days Qty: 6 0RF Rx Instructions: Take 1 tablet up to 3 times daily as needed for pain. No operating heavy machinery or driving while on this medication. No Action sertraline 50 mg tablet 50 mg PO HS Qty: 90 3RF trazodone 100 mg tablet 100 mg PO HS Qty: 90 4RF ondansetron 4 mg tablet,disintegrating 4 mg PO Q6H PRN (Reason: nausea and vomiting) Qty: 30 0RF lidocaine 5 % ointment 1 applic topical BID PRN (Reason: pain) Qty: 50 0RF triamcinolone acetonide 0.1 % cream 1 applic topical BID PRN ibuprofen 800 mg tablet 800 mg PO Q8H PRN (Reason: pain) Qty: 30 1RF Saccharomyces boulardii [Florastor] 250 mg capsule 250 mg PO BID Qty: 14 0RF mupirocin 2 % ointment 1 applic topical TID Qty: 15 0RF Discharge Instructions Instructions: Abscess Incision and Drainage ED Additional Instructions: Please follow-up with dermatology or surgery as previously scheduled. You may apply warm compresses for the next few days. Return for any fever, chills worsening or concerns. Follow up with primary care provider in 3-5 days. Return to ED sooner if any worsening or concerns. Please take Tylenol or Ibuprofen with food every 4-6 hours as needed for pain and swelling. Referrals: Veronica Zapata [Primary Care Provider] - 1 week Discharge Data Discharge Date/Time-TO BE ENTERED AT DEPARTURE: 01/31/24 11:49 HPI General Mode of arrival: ambulatory. Date/Time Provider Initiated Documentation: 01/31/24 10:18. Limitations to Documentation: no limitations. Information obtained by: patient, RN notes reviewed and old records reviewed. HPI Narrative: 38-year-old female with a past medical history of hidradenitis suppurativa presents to the ER with chief complaint of some new abscesses noted to her left axilla. Patient has history of needing I&D she is requesting antibiotics and pain medications. She reports she does have an upcoming appointment with dermatology in the future. Denies any fever chills or any other associated symptoms or concerns. Related Data Home Medications ?Medication ?Instructions ?Recorded ?Confirmed ibuprofen 800 mg tablet 800 mg PO Q8H PRN pain #30 tabs 02/27/20 01/31/24 lidocaine 5 % topical ointment 1 applic topical BID PRN pain #50 01/13/22 01/31/24 grams Saccharomyces boulardii 250 mg 250 mg PO BID #14 caps 05/01/22 01/31/24 capsule (Florastor) sertraline 50 mg tablet 50 mg PO HS #90 tabs 05/04/22 01/31/24 trazodone 100 mg tablet 100 mg PO HS #90 tabs 05/04/22 01/31/24 ondansetron 4 mg disintegrating 4 mg PO Q6H PRN nausea and 12/07/22 01/31/24 tablet vomiting #30 tabs triamcinolone acetonide 0.1 % 1 applic topical BID PRN 04/13/23 01/31/24 topical cream mupirocin 2 % topical ointment 1 applic topical TID #15 grams 07/09/23 01/31/24 clindamycin HCl 150 mg capsule 450 mg (3 x 150 mg) PO TID 7 days 01/31/24 #63 caps oxycodone 5 mg tablet 5 mg PO Q8H PRN pain 2 days #6 tabs 01/31/24 Previous Rx's ?Medication ?Instructions ?Recorded ibuprofen 800 mg tablet 800 mg PO Q8H PRN pain #30 tabs 02/27/20 lidocaine 5 % topical ointment 1 applic topical BID PRN pain #50 01/13/22 grams Saccharomyces boulardii 250 mg 250 mg PO BID #14 caps 05/01/22 capsule (Florastor) sertraline 50 mg tablet 50 mg PO HS #90 tabs 05/04/22 trazodone 100 mg tablet 100 mg PO HS #90 tabs 05/04/22 ondansetron 4 mg disintegrating 4 mg PO Q6H PRN nausea and 12/07/22 tablet vomiting #30 tabs mupirocin 2 % topical ointment 1 applic topical TID #15 grams 07/09/23 clindamycin HCl 150 mg capsule 450 mg (3 x 150 mg) PO TID 7 days 01/31/24 #63 caps oxycodone 5 mg tablet 5 mg PO Q8H PRN pain 2 days #6 tabs 01/31/24 Allergies Allergy/AdvReac Type Severity Reaction Status Date / Time cyclobenzaprine (From Allergy Intermediate Hives Unverified 01/31/24 10:23 Flexeril) cephalexin (Cephalexin) AdvReac Severe Abdominal Verified 01/31/24 10:23 Cramps sugammadex AdvReac Severe Other (See Verified 01/31/24 10:23 Comment) vancomycin AdvReac Severe diarrhea, Verified 01/31/24 10:23 redness acetaminophen AdvReac Intermediate Other (See Verified 01/31/24 10:23 Comment) Cephalosporins AdvReac Intermediate Diarrhea Verified 01/31/24 10:23 codeine phosphate (From AdvReac Intermediate Vomiting Verified 01/31/24 10:23 Tylenol-Codeine #3) ketorolac (From Toradol) AdvReac Intermediate Nausea Verified 01/31/24 10:23 silver (From Tegaderm AG AdvReac Intermediate Skin Rash Verified 01/31/24 10:23 Mesh) sulfamethoxazole (From AdvReac Intermediate Skin Rash Verified 01/31/24 10:23 Bactrim) tramadol AdvReac Intermediate Diarrhea Verified 01/31/24 10:23 trimethoprim (From Bactrim) AdvReac Intermediate Skin Rash Verified 01/31/24 10:23 General Stated Complaint: RashLesion HALINA: 4 Review of Systems All systems reviewed & are unremarkable except as noted in HPI and below Integumentary/Breasts Skin/Breast: Reports skin pain and Reports skin swelling Exam Chest Chest/axillae images: 1. Small Approx 5mm red raised area. 2. Small approx 5mm area of induration Course Vital Signs Vital signs: Vital Signs Temperature 36.4 C L 01/31/24 10:19 Pulse 76 01/31/24 10:19 Respiratory Rate 18 01/31/24 10:19 Blood Pressure 143/80 H 01/31/24 10:19 Pulse Oximetry 99 01/31/24 10:19 Temperature 36.4 C L 11/13/24 10:19 Pulse 76 01/31/24 10:19 Respiratory Rate 18 01/31/24 10:19 Blood Pressure 143/80 H 01/31/24 10:19 Pulse Oximetry 99 01/31/24 10:19 Pain Level 9 01/31/24 10:19 Procedures Abscess I/D Site: Upper Extremity (Axillae) Side (if applicable): Left Sedation/analgesia: None Local Anesthetic: Lidocaine 1%, With Epi and Other Anesthetic (LET) Amount of anesthesia used (mL): 1 Technique: Incised with #11 Blade Amount of fluid expressed (mL): 0.5 Irrigation: No Packing used?: None Medical Decision Making 38-year-old female with a past medical history of hidradenitis suppurativa presents to the ER with chief complaint of some new abscesses noted to her left axilla. Patient has history of needing I&D she is requesting antibiotics and pain medications. She reports she does have an upcoming appointment with dermatology in the future. Denies any fever chills or any other associated symptoms or concerns. 2 small abscesses anesthetized with topical let and 1% lidocaine with epi patient tolerated well, anesthesia achieved. Abscesses lanced with #11 blade, small scant amount of purulent drainage noted, mostly sanguinous drainage. ABD pad applied. Patient instructed on warm compresses and strict return instructions and follow-up care she verbalized understanding. Send patient with 2 days of oxycodone and clindamycin prescription for the next 7 days. This text was generated using [employer] dictation system, please disregard any oddities of phrase or misspellings. Medical Records Medical records reviewed: Yes I reviewed the patient's medical records. Quality:[facility] Health Related Social Needs: Health related social needs details no reported problems. [facility] All Active Problems (Updated 01/31/24 @ 11:37 by Marina Moe NP) Abscess of axilla, left (Acute) Breast pain, left (Acute) Unspecified open wound of left breast, initial encounter (Acute) Diarrhea (Acute) Palpable mass of soft tissue of knee (Acute) Low HDL (under 40) (Acute) Obesity without serious comorbidity (Acute) Hidradenitis suppurativa (Acute) bilateral, managed at [facility] derm. Pending Humira start. [facility] did pain clinic referral. Bilateral ovarian cysts (Chronic) seen on multiple imaging studies Loin pain hematuria syndrome (Acute) never officially diagnosed by clerk analyst Lymphedema of left lower extremity (Chronic) Anxiety (Acute 02/11/13) panic Medical History Anesthesia complication Patient with severe bradycardia with sugammadex reversal requiring compressions History of tobacco abuse quit 01/2022 History of renal calculi Endometriosis, unspecified LAPROSCOPY 2009 hysterect 2019 on OC for control Hepatomegaly Vitamin D deficiency Anemia Hepatic steatosis Surgical History S/P laparoscopic appendectomy S/P laparoscopy (2009) stage 1 endometriosis S/P laparoscopic assisted vaginal hysterectomy (LAVH) ovaries intact Hx of hand surgery L hand, pt. reports nerves were fixed Status post endovenous radiofrequency ablation (RFA) of saphenous vein for venous insufficiency 09/06/2018 wisdom teeth extraction Extracorporeal shock wave lithotripsy EGD - MAC Family History Mother Diabetes Heart disease Hyperlipidemia Father Colon cancer Heart disease Hyperlipidemia Sister Hyperlipidemia Grandfather Diabetes Grandfather Diabetes Hyperlipidemia Asthma Grandmother Diabetes Personal history of malignant neoplasm Breast Heart disease Hyperlipidemia Grandmother No problems noted. 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 Pets and animals: Yes Pets and animals: dog(s) Sexually active: Yes Do you think of yourself as: straight/heterosexual Current gender identity: female What is your relationship status?: never How often do you talk on the phone with friends or family?: three or more times per week How often do you get together with friends or relatives?: once per week How often do you attend orthodoxy or alevism services?: 1-3 times per year Do you belong to any clubs or organized social groups?: no Panel score (0-1 are the most socially isolated patients): 1 What type of physical activity do you participate in: other Duration: > 90 minutes/day Frequency: 5-6 times per week Melida/Scientology: None Do you feel safe at home: Yes Do you feel safe in your relationship?: Yes
[2024-01-31] MEDS: Lidocaine/Epinephri/Tetracaine Topical Gel 3 ML TP ×2 (11:00→11:10)
[2024-01-31] MEDS: Clindamycin 150 MG CAP 450 MG PO (11:00)
[2024-01-31] MEDS: oxyCODONE 5 mg/Acetaminophen 325 mg TAB 1 TAB PO (11:09)
[2024-01-31 11:16] VITALS: RESP 20
[2024-01-31] MEDS: Lidocaine 1% Multi-Dose W/EPI 1/100,000 50 ML VIAL (11:48)
== END 2024-01-31 11:49 | disposition home or self-care (01) ==
PROVIDERS: Emergency Provider Registered Nurse Emergency; PCP Nurse Practitioner Family
DX: L02.412 Cutaneous abscess of left axilla (principal)
CPT/HCPCS: 10061; J2004

== ENCOUNTER 2024-02-29 13:10 | Emergency (ER) | payer MEDICAID, SELFPAY ==
[2024-02-29 13:13] VITALS: BP 150/84; PULSE 72; RESP 16; TEMP 36.5; O2SAT 98
[2024-02-29] MEDS: Lidocaine 1% Multi-Dose W/EPI 1/100,000 50 ML VIAL (14:39)
[2024-02-29] MEDS: MORPHine IR 15 MG TAB, 4 TABS/BTL PO (15:13)
--- NOTE | 2024-03-02 10:18 | ED.GENADUL_ITS ---
Discharge Plan Disposition Patient Disposition: Home Discharge Details Clinical Impression: Hidradenitis suppurativa, Abscess of axilla, left Primary Care Provider: Veronica Zapata ED Provider: Lesvia German Home Meds and New Rx's Prescriptions: New doxycycline monohydrate 100 mg capsule 100 mg PO BID Qty: 14 0RF Continued sertraline 50 mg tablet 50 mg PO HS Qty: 90 3RF trazodone 100 mg tablet 100 mg PO HS Qty: 90 4RF ondansetron 4 mg tablet,disintegrating 4 mg PO Q6H PRN (Reason: nausea and vomiting) Qty: 30 0RF lidocaine 5 % ointment 1 applic topical BID PRN (Reason: pain) Qty: 50 0RF triamcinolone acetonide 0.1 % cream 1 applic topical BID PRN ibuprofen 800 mg tablet 800 mg PO Q8H PRN (Reason: pain) Qty: 30 1RF Saccharomyces boulardii [Florastor] 250 mg capsule 250 mg PO BID Qty: 14 0RF mupirocin 2 % ointment 1 applic topical TID Qty: 15 0RF Discharge Instructions Additional Instructions: Apply warm compresses Take antibiotics as prescribed You have received morphine IR for pain, please take these sparingly they are addictive Supportive [id number] medications are encouraged Please talk to your stave machine tender about starting Humira Referrals: Veronica Zapata [Primary Care Provider] - 1 day Discharge Data Discharge Date/Time-TO BE ENTERED AT DEPARTURE: 02/29/24 15:24 HPI General Date/Time Provider Initiated Documentation: 02/29/24 13:55 . HPI Narrative: This 48-year-old female presents with report of 2 abscesses to left axillary region. Denies any fever or chills. States she has had these recurrently in the past. denies ivda or . Related Data Home Medications ?Medication ?Instructions ?Recorded ?Confirmed ibuprofen 800 mg tablet 800 mg PO Q8H PRN pain #30 tabs 02/27/20 02/29/24 lidocaine 5 % topical ointment 1 applic topical BID PRN pain #50 01/13/22 02/29/24 grams Saccharomyces boulardii 250 mg 250 mg PO BID #14 caps 05/01/22 02/29/24 capsule (Florastor) sertraline 50 mg tablet 50 mg PO HS #90 tabs 05/04/22 02/29/24 trazodone 100 mg tablet 100 mg PO HS #90 tabs 05/04/22 02/29/24 ondansetron 4 mg disintegrating 4 mg PO Q6H PRN nausea and 12/07/22 02/29/24 tablet vomiting #30 tabs triamcinolone acetonide 0.1 % 1 applic topical BID PRN 04/13/23 02/29/24 topical cream mupirocin 2 % topical ointment 1 applic topical TID #15 grams 07/09/23 02/29/24 doxycycline monohydrate 100 mg 100 mg PO BID #14 caps 02/29/24 capsule Previous Rx's ?Medication ?Instructions ?Recorded ibuprofen 800 mg tablet 800 mg PO Q8H PRN pain #30 tabs 02/27/20 lidocaine 5 % topical ointment 1 applic topical BID PRN pain #50 01/13/22 grams Saccharomyces boulardii 250 mg 250 mg PO BID #14 caps 05/01/22 capsule (Florastor) sertraline 50 mg tablet 50 mg PO HS #90 tabs 05/04/22 trazodone 100 mg tablet 100 mg PO HS #90 tabs 05/04/22 ondansetron 4 mg disintegrating 4 mg PO Q6H PRN nausea and 12/07/22 tablet vomiting #30 tabs mupirocin 2 % topical ointment 1 applic topical TID #15 grams 07/09/23 doxycycline monohydrate 100 mg 100 mg PO BID #14 caps 02/29/24 capsule Allergies Allergy/AdvReac Type Severity Reaction Status Date / Time cyclobenzaprine (From Allergy Intermediate Hives Unverified 02/29/24 13:15 Flexeril) cephalexin (Cephalexin) AdvReac Severe Abdominal Verified 02/29/24 13:15 Cramps sugammadex AdvReac Severe Other (See Verified 02/29/24 13:15 Comment) vancomycin AdvReac Severe diarrhea, Verified 02/29/24 13:15 redness acetaminophen AdvReac Intermediate Other (See Verified 02/29/24 13:15 Comment) Cephalosporins AdvReac Intermediate Diarrhea Verified 02/29/24 13:15 codeine phosphate (From AdvReac Intermediate Vomiting Verified 02/29/24 13:15 Tylenol-Codeine #3) ketorolac (From Toradol) AdvReac Intermediate Nausea Verified 02/29/24 13:15 silver (From Tegaderm AG AdvReac Intermediate Skin Rash Verified 02/29/24 13:15 Mesh) sulfamethoxazole (From AdvReac Intermediate Skin Rash Verified 02/29/24 13:15 Bactrim) tramadol AdvReac Intermediate Diarrhea Verified 02/29/24 13:15 trimethoprim (From Bactrim) AdvReac Intermediate Skin Rash Verified 02/29/24 13:15 General Stated Complaint: RashLesion HALINA: 4 Exam Narrative Exam Narrative: 2 small abscesses noted to left axillary region, no cellulitis Course Vital Signs Vital signs: Vital Signs Temperature 36.5 C 02/29/24 13:13 Pulse 72 02/29/24 13:13 Respiratory Rate 16 02/29/24 13:13 Blood Pressure 150/84 H 02/29/24 13:13 Pulse Oximetry 98 02/29/24 13:13 Temperature 36.5 C 02/29/24 13:13 Pulse 72 02/29/24 13:13 Respiratory Rate 16 02/29/24 13:13 Respiratory Effort Normal 02/29/24 13:41 Blood Pressure 150/84 H 02/29/24 13:13 Pulse Oximetry 98 02/29/24 13:13 Pain Level 9 02/29/24 13:13 Procedures Abscess I/D Site: Other (axillary ) Side (if applicable): Left Local Anesthetic: Lidocaine 1% Amount of anesthesia used (mL): 3 Technique: Needle Aspiration and Incised with #11 Blade Amount of fluid expressed (mL): 2 Irrigation: Yes Packing used?: None Medical Decision Making 38-year-old female known to this facility presenting with report of abscesses to left axillary region. incision and drainage was performed and patient tolerated without incident and clindamycin was iniatiated. pt was encouraged to f/u with stave machine tender regarding possible initiation of the humira that she's been discussing for her hidradenitis. recheck in 48 hours. 4 tablets of morphine IR with risk of addiction reviewed. Quality:SDOH Health Related Social Needs: Health related social needs details no reported proble ms. [place] All Active Problems (Updated 03/02/24 @ 00:00 by ZACKARY KWONG) Breast pain, left (Acute) Unspecified open wound of left breast, initial encounter (Acute) Diarrhea (Acute) Palpable mass of soft tissue of knee (Acute) Low HDL (under 40) (Acute) Obesity without serious comorbidity (Acute) Hidradenitis suppurativa (Acute) bilateral, managed at [facility] derm. Pending Humira start. [facility] did pain clinic referral. Bilateral ovarian cysts (Chronic) seen on multiple imaging studies Loin pain hematuria syndrome (Acute) never officially diagnosed by rn community health Lymphedema of left lower extremity (Chronic) Anxiety (Acute 02/11/13) panic Medical History Anesthesia complication Patient with severe bradycardia with sugammadex reversal requiring compressions History of tobacco abuse quit 01/2022 History of renal calculi Endometriosis, unspecified LAPROSCOPY 2009 hysterect 2019 on OC for control Hepatomegaly Vitamin D deficiency Anemia Hepatic steatosis Surgical History S/P laparoscopic appendectomy S/P laparoscopy (2009) stage 1 endometriosis S/P laparoscopic assisted vaginal hysterectomy (LAVH) ovaries intact Hx of hand surgery L hand, pt. reports nerves were fixed Status post endovenous radiofrequency ablation (RFA) of saphenous vein for venous insufficiency 09/06/2018 wisdom teeth extraction Extracorporeal shock wave lithotripsy EGD - MAC Family History Mother Diabetes Heart disease Hyperlipidemia Father Colon cancer Heart disease Hyperlipidemia Sister Hyperlipidemia Grandfather Diabetes Grandfather Diabetes Hyperlipidemia Asthma Grandmother Diabetes Personal history of malignant neoplasm Breast Heart disease Hyperlipidemia Grandmother No problems noted. 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 Pets and animals: Yes Pets and animals: dog(s) Sexually active: Yes Do you think of yourself as: straight/heterosexual Current gender identity: female What is your relationship status?: never How often do you talk on the phone with friends or family?: three or more times per week How often do you get together with friends or relatives?: once per week How often do you attend jainism or oriental orthodox services?: 1-3 times per year Do you belong to any clubs or organized social groups?: no Panel score (0-1 are the most socially isolated patients): 1 What type of physical activity do you participate in: other Duration: > 90 minutes/day Frequency: 5-6 times per week Melida/Jewish: None Do you feel safe at home: Yes Do you feel safe in your relationship?: Yes
== END 2024-02-29 15:24 | disposition home or self-care (01) ==
PROVIDERS: Emergency Provider Physician Assistant; PCP Nurse Practitioner Family
DX: L02.412 Cutaneous abscess of left axilla (principal); L73.2 Hidradenitis suppurativa; Z87.891 Personal history of nicotine dependence
CPT/HCPCS: 10061; 99283; J2004

== ENCOUNTER 2024-03-19 13:54 | Emergency (ER) | payer MEDICAID, SELFPAY ==
[2024-03-19 13:59] VITALS: BP 153/90; PULSE 67; RESP 16; TEMP 36.8; O2SAT 97
--- NOTE | 2024-03-19 14:42 | ED.GENADUL_ITS ---
Discharge Plan Disposition Patient Disposition: Home Discharge Details Clinical Impression: Hidradenitis suppurativa Primary Care Provider: Veronica Zapata ED Provider: Ezequiel Washburn Home Meds and New Rx's Prescriptions: New clindamycin HCl 300 mg capsule 300 mg PO TID 7 Days Qty: 21 0RF Continued sertraline 50 mg tablet 50 mg PO HS Qty: 90 3RF trazodone 100 mg tablet 100 mg PO HS Qty: 90 4RF ondansetron 4 mg tablet,disintegrating 4 mg PO Q6H PRN (Reason: nausea and vomiting) Qty: 30 0RF lidocaine 5 % ointment 1 applic topical BID PRN (Reason: pain) Qty: 50 0RF ibuprofen 800 mg tablet 800 mg PO Q8H PRN (Reason: pain) Qty: 30 1RF Saccharomyces boulardii [Florastor] 250 mg capsule 250 mg PO BID Qty: 14 0RF mupirocin 2 % ointment 1 applic topical TID Qty: 15 0RF Discharge Instructions Instructions: Hidradenitis suppurativa Additional Instructions: Monitor for any signs of worsening and feel free to return if these occur. Otherwise take antibiotics as prescribed and it is strongly recommended that you follow-up with dermatology for more definitive care of your hidradenitis suppurativa Referrals: [facility] [Outside] Discharge Data Discharge Date/Time-TO BE ENTERED AT DEPARTURE: 03/19/24 14:52 HPI General Mode of arrival: ambulatory . Date/Time Provider Initiated Documentation: 03/19/24 13:56 . Limitations to Documentation: no limitations . Information obtained by: patient . History of Present Illness 38 year old F presents to the emergency department with the chief complaint of Right armpit abscess, described as moderate and similar to prior episodes, Patient started experiencing this day(s) (3) and it has been constant. No relieving factors improve symptom(s), No exacerbating factors reported . Patient notes no other symptoms.. Patient did receive the following treatments prior to arrival, none Related Data Home Medications ?Medication ?Instructions ?Recorded ?Confirmed ibuprofen 800 mg tablet 800 mg PO Q8H PRN pain #30 tabs 02/27/20 03/19/24 lidocaine 5 % topical ointment 1 applic topical BID PRN pain #50 01/13/22 03/19/24 grams Saccharomyces boulardii 250 mg 250 mg PO BID #14 caps 05/01/22 03/19/24 capsule (Florastor) sertraline 50 mg tablet 50 mg PO HS #90 tabs 05/04/22 03/19/24 trazodone 100 mg tablet 100 mg PO HS #90 tabs 05/04/22 03/19/24 ondansetron 4 mg disintegrating 4 mg PO Q6H PRN nausea and 12/07/22 03/19/24 tablet vomiting #30 tabs mupirocin 2 % topical ointment 1 applic topical TID #15 grams 07/09/23 03/19/24 clindamycin HCl 300 mg capsule 300 mg PO TID 7 days #21 caps 03/19/24 Previous Rx's ?Medication ?Instructions ?Recorded ibuprofen 800 mg tablet 800 mg PO Q8H PRN pain #30 tabs 02/27/20 lidocaine 5 % topical ointment 1 applic topical BID PRN pain #50 01/13/22 grams Saccharomyces boulardii 250 mg 250 mg PO BID #14 caps 05/01/22 capsule (Florastor) sertraline 50 mg tablet 50 mg PO HS #90 tabs 05/04/22 trazodone 100 mg tablet 100 mg PO HS #90 tabs 05/04/22 ondansetron 4 mg disintegrating 4 mg PO Q6H PRN nausea and 12/07/22 tablet vomiting #30 tabs mupirocin 2 % topical ointment 1 applic topical TID #15 grams 07/09/23 clindamycin HCl 300 mg capsule 300 mg PO TID 7 days #21 caps 03/19/24 Allergies Allergy/AdvReac Type Severity Reaction Status Date / Time cyclobenzaprine (From Allergy Intermediate Hives Unverified 03/19/24 14:02 Flexeril) cephalexin (Cephalexin) AdvReac Severe Abdominal Verified 03/19/24 14:02 Cramps sugammadex AdvReac Severe Other (See Verified 03/19/24 14:02 Comment) vancomycin AdvReac Severe diarrhea, Verified 03/19/24 14:02 redness acetaminophen AdvReac Intermediate Other (See Verified 03/19/24 14:02 Comment) Cephalosporins AdvReac Intermediate Diarrhea Verified 03/19/24 14:02 codeine phosphate (From AdvReac Intermediate Vomiting Verified 03/19/24 14:02 Tylenol-Codeine #3) ketorolac (From Toradol) AdvReac Intermediate Nausea Verified 03/19/24 14:02 silver (From Tegaderm AG AdvReac Intermediate Skin Rash Verified 03/19/24 14:02 Mesh) sulfamethoxazole (From AdvReac Intermediate Skin Rash Verified 03/19/24 14:02 Bactrim) tramadol AdvReac Intermediate Diarrhea Verified 03/19/24 14:02 trimethoprim (From Bactrim) AdvReac Intermediate Skin Rash Verified 03/19/24 14:02 General Stated Complaint: Cellulitis HALINA: 3 Review of Systems Constitutional Constitutional: Denies chills and Denies fever(s) Cardiovascular Cardiovascular: Denies chest pain Integumentary/Breasts Skin/Breast: Reports as per HPI, Reports furuncle and Reports skin swelling Exam Const General: cooperative, no acute distress and not ill appearing Orientation: alert, awake and oriented x3 HENMT Mouth: moist mucous membranes Chest Chest/axillae images: 2 1. Small abscess with induration and erythema Resp Effort & Inspection: normal respiratory effort, able to speak in complete sentences and no respiratory distress Neuro General: patient alert, patient awake, patient oriented x3, moves all extremities and no focal motor deficits Sensory Exam: no sensory deficits noted Course Vital Signs Vital signs: Vital Signs Temperature 36.8 C 03/19/24 13:59 Pulse 67 03/19/24 13:59 Respiratory Rate 16 03/19/24 13:59 Blood Pressure 153/90 H 03/19/24 13:59 Pulse Oximetry 97 03/19/24 13:59 Temperature 36.8 C 03/19/24 13:59 Pulse 67 03/19/24 13:59 Respiratory Rate 16 03/19/24 13:59 Blood Pressure 153/90 H 03/19/24 13:59 Pulse Oximetry 97 03/19/24 13:59 Oxygen Delivery Method Room Air 03/19/24 13:59 Oxygen Flow Rate 0 03/19/24 13:59 Pain Level 9 03/19/24 13:59 Medical Decision Making Patient presenting to the emergency department for chief complaint of acute on chronic armpit abscesses with previous diagnosis of hidradenitis suppurativa. She states this is similar to previous presentations which she has been working with dermatology but has not started Humira or other Biologics yet. Patient denies fever chills or other areas of involvement currently. Physical exam shows findings consistent with hidradenitis suppurativa with approximately a 6 mm abscess underneath the right armpit and tenderness but no fluctuance streaking erythema or other findings noted. Discussed with patient given history of hidradenitis risk versus benefit of I&D versus antibiotics, warm compresses, and follow-up with dermatology. After full discussion and given overall small size at this point, shared decision making utilized for patient to do antibiotics only with watchful waiting. Patient was given small to go bottle of narcotics given significant pain and allergies to multiple medications. After discussion of diagnosis and plan of care patient has no further needs, questions, or concerns and states clear understanding to return to the emergency department for any worsening symptoms. This documentation was generated using [employer] system, please disregard any oddities of phrase or misspellings. Quality:SDOH Health Related Social Needs: 2 Health related social needs details no reported proble ms. [place] All Active Problems Breast pain, left (Acute) Unspecified open wound of left breast, initial encounter (Acute) Diarrhea (Acute) Palpable mass of soft tissue of knee (Acute) Low HDL (under 40) (Acute) Obesity without serious comorbidity (Acute) Hidradenitis suppurativa (Acute) bilateral, managed at [facility] derm. Pending Humira start. [facility] did pain clinic referral. Bilateral ovarian cysts (Chronic) seen on multiple imaging studies Loin pain hematuria syndrome (Acute) never officially diagnosed by applications system analyst Lymphedema of left lower extremity (Chronic) Anxiety (Acute 02/11/13) panic Medical History Anesthesia complication Patient with severe bradycardia with sugammadex reversal requiring compressions History of tobacco abuse quit 01/2022 History of renal calculi Endometriosis, unspecified LAPROSCOPY 2010 hysterect 2019 on OC for control Hepatomegaly Vitamin D deficiency Anemia Hepatic steatosis Surgical History S/P laparoscopic appendectomy S/P laparoscopy (2009) stage 1 endometriosis S/P laparoscopic assisted vaginal hysterectomy (LAVH) ovaries intact Hx of hand surgery L hand, pt. reports nerves were fixed Status post endovenous radiofrequency ablation (RFA) of saphenous vein for venous insufficiency 09/06/2018 wisdom teeth extraction Extracorporeal shock wave lithotripsy EGD - MAC Family History Mother Diabetes Heart disease Hyperlipidemia Father Colon cancer Heart disease Hyperlipidemia Sister Hyperlipidemia Grandfather Diabetes Grandfather Diabetes Hyperlipidemia Asthma Grandmother Diabetes Personal history of malignant neoplasm Breast Heart disease Hyperlipidemia Grandmother No problems noted. 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 Pets and animals: Yes Pets and animals: dog(s) Sexually active: Yes Do you think of yourself as: straight/heterosexual Current gender identity: female What is your relationship status?: never How often do you talk on the phone with friends or family?: three or more times per week How often do you get together with friends or relatives?: once per week How often do you attend spiritism or yazdanism services?: 1-3 times per year Do you belong to any clubs or organized social groups?: no Panel score (0-1 are the most socially isolated patients): 1 What type of physical activity do you participate in: other Duration: > 90 minutes/day Frequency: 5-6 times per week Melida/Taoism: None Do you feel safe at home: Yes Do you feel safe in your relationship?: Yes
[2024-03-19] MEDS: MORPHine IR 15 MG TAB, 4 TABS/BTL PO (14:53)
== END 2024-03-19 14:52 | disposition home or self-care (01) ==
PROVIDERS: Emergency Provider Nurse Practitioner Family; PCP Nurse Practitioner Family
DX: L02.411 Cutaneous abscess of right axilla (principal); L73.2 Hidradenitis suppurativa; Z87.891 Personal history of nicotine dependence
CPT/HCPCS: 99283

== ENCOUNTER 2024-03-22 10:25 | Emergency (ER) | payer MEDICAID, SELFPAY ==
[2024-03-22 10:26] VITALS: BP 159/95; PULSE 75; RESP 12; TEMP 36.8; O2SAT 98
--- NOTE | 2024-03-22 10:51 | ED.GENADUL_ITS ---
Discharge Plan Disposition Patient Disposition: Home Condition: Stable Discharge Details Clinical Impression: Hidradenitis suppurativa Primary Care Provider: Veronica Zapata ED Provider: Aleksandr Green Home Meds and New Rx's Prescriptions: New doxycycline monohydrate 100 mg capsule 100 mg PO BID Qty: 20 0RF Continued sertraline 50 mg tablet 50 mg PO HS Qty: 90 3RF trazodone 100 mg tablet 100 mg PO HS Qty: 90 4RF ondansetron 4 mg tablet,disintegrating 4 mg PO Q6H PRN (Reason: nausea and vomiting) Qty: 30 0RF lidocaine 5 % ointment 1 applic topical BID PRN (Reason: pain) Qty: 50 0RF ibuprofen 800 mg tablet 800 mg PO Q8H PRN (Reason: pain) Qty: 30 1RF Saccharomyces boulardii [Florastor] 250 mg capsule 250 mg PO BID Qty: 14 0RF mupirocin 2 % ointment 1 applic topical TID Qty: 15 0RF Discontinued clindamycin HCl 300 mg capsule 300 mg PO TID 7 Days Qty: 21 0RF Discharge Instructions Instructions: Hidradenitis suppurativa Additional Instructions: Discontinue clindamycin and begin taking doxycycline as directed. Percocet take-home pack as directed, this medication is addictive and may cause drowsiness. Warm moist compresses every 2 hours for 20 minutes. Please watch for new or worsening symptoms and return to the ER for any concerns. 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 See if they can get you a call cancellation list. HPI General Mode of arrival: ambulatory . Date/Time Provider Initiated Documentation: 03/22/24 10:27 . Limitations to Documentation: no limitations . Information obtained by: patient . History of Present Illness 38 year old F presents to the emergency department with the chief complaint of Abscess, described as moderate, with intensity rated at 7. Quality is described as aching, and is localized to the upper extremity (Right axilla). Patient reports no radiation. Patient started experiencing this week(s) (1) and it has been constant. No relieving factors improve symptom(s), No exacerbating factors reported . Patient notes no other symptoms.. Patient did receive the following treatments prior to arrival, none Related Data Home Medications ?Medication ?Instructions ?Recorded ?Confirmed ibuprofen 800 mg tablet 800 mg PO Q8H PRN pain #30 tabs 02/27/20 03/22/24 lidocaine 5 % topical ointment 1 applic topical BID PRN pain #50 01/13/22 03/22/24 grams Saccharomyces boulardii 250 mg 250 mg PO BID #14 caps 05/01/22 03/22/24 capsule (Florastor) sertraline 50 mg tablet 50 mg PO HS #90 tabs 05/04/22 03/22/24 trazodone 100 mg tablet 100 mg PO HS #90 tabs 05/04/22 03/22/24 ondansetron 4 mg disintegrating 4 mg PO Q6H PRN nausea and 12/07/22 03/22/24 tablet vomiting #30 tabs mupirocin 2 % topical ointment 1 applic topical TID #15 grams 07/09/23 03/22/24 doxycycline monohydrate 100 mg 100 mg PO BID #20 caps 03/22/24 capsule Previous Rx's ?Medication ?Instructions ?Recorded ibuprofen 800 mg tablet 800 mg PO Q8H PRN pain #30 tabs 02/27/20 lidocaine 5 % topical ointment 1 applic topical BID PRN pain #50 01/13/22 grams Saccharomyces boulardii 250 mg 250 mg PO BID #14 caps 05/01/22 capsule (Florastor) sertraline 50 mg tablet 50 mg PO HS #90 tabs 05/04/22 trazodone 100 mg tablet 100 mg PO HS #90 tabs 05/04/22 ondansetron 4 mg disintegrating 4 mg PO Q6H PRN nausea and 12/07/22 tablet vomiting #30 tabs mupirocin 2 % topical ointment 1 applic topical TID #15 grams 07/09/23 doxycycline monohydrate 100 mg 100 mg PO BID #20 caps 03/22/24 capsule Allergies Allergy/AdvReac Type Severity Reaction Status Date / Time cyclobenzaprine (From Allergy Intermediate Hives Unverified 03/22/24 10:33 Flexeril) cephalexin (Cephalexin) AdvReac Severe Abdominal Verified 03/22/24 10:33 Cramps sugammadex AdvReac Severe Other (See Verified 03/22/24 10:33 Comment) vancomycin AdvReac Severe diarrhea, Verified 03/22/24 10:33 redness acetaminophen AdvReac Intermediate Other (See Verified 03/22/24 10:33 Comment) Cephalosporins AdvReac Intermediate Diarrhea Verified 03/22/24 10:33 codeine phosphate (From AdvReac Intermediate Vomiting Verified 03/22/24 10:33 Tylenol-Codeine #3) ketorolac (From Toradol) AdvReac Intermediate Nausea Verified 03/22/24 10:33 silver (From Tegaderm AG AdvReac Intermediate Skin Rash Verified 03/19/24 14:02 Mesh) sulfamethoxazole (From AdvReac Intermediate Skin Rash Verified 03/22/24 10:33 Bactrim) tramadol AdvReac Intermediate Diarrhea Verified 03/22/24 10:33 trimethoprim (From Bactrim) AdvReac Intermediate Skin Rash Verified 03/22/24 10:33 General Stated Complaint: Cellulitis HALINA: 4 Review of Systems Constitutional Constitutional: Denies chills and Denies fever(s) Integumentary/Breasts Skin/Breast: Reports rash Exam Const General: cooperative, healthy appearing, comfortable and no acute distress Orientation: alert and awake HENNH Head: normal to inspection, normocephalic and atraumatic Mouth: moist mucous membranes Eyes Conjunctivae: conjunctivae normal Neck Neck: normal visual inspection, trachea midline and supple Chest Chest/axillae images: 2 1. Small abscess with minimal induration but without fluctuance or surrounding erythema. No lymphangitic streaking. Skin is intact. Resp Effort & Inspection: normal respiratory effort and able to speak in complete sentences Cardio Rate: regular rate Rhythm: regular rhythm Neuro General: patient alert, patient awake, moves all extremities and no focal motor deficits Sensory Exam: no sensory deficits noted Psych Appearance: grossly normal Mental Status: mental status grossly normal Course Vital Signs Vital signs: Vital Signs Temperature 36.8 C 03/22/24 10:26 Pulse 75 03/22/24 10:26 Respiratory Rate 12 03/22/24 10:26 Blood Pressure 159/95 H 03/22/24 10:26 Pulse Oximetry 98 03/22/24 10:26 Temperature 36.8 C 03/22/24 10:26 Temperature Source Oral 03/22/24 10:26 Pulse 75 03/22/24 10:26 Respiratory Rate 12 03/22/24 10:26 Blood Pressure 159/95 H 03/22/24 10:26 Blood Pressure Position Sitting 03/22/24 10:26 Pulse Oximetry 98 03/22/24 10:26 Oxygen Delivery Method Room Air 03/22/24 10:26 Oxygen Flow Rate 0 03/22/24 10:26 Pain Level 9 03/22/24 10:26 Medical Decision Making 38-year-old female with hydradenitis suppurativa, in the process of being established with dermatology at [facility], presents having been seen on 03/19/2024 for the same, unfortunately symptoms are not better with clindamycin. She states typically when this happens she needs to be switched to doxycycline. Also requesting a take-home pack of medication for discomfort. I am not convinced that there is an obvious abscess on examination, no clear indication for I&D. I did recommend formal ultrasound to confirm abscess so we could then discuss I&D. Patient states that she has time constraints today and declines ultrasound at this time. Will provide prescription for doxycycline and a take-home pack of Percocet. Discussed the importance of warm moist compresses. Also discussed the importance of following up with her dermatology team at [facility]. Will monitor for new or evolving symptoms and return, patient understands that I&D may be indicated. Standard discharge and return precautions were provided. Patient understands, is agreeable to this plan, and has no additional questions or concerns upon discharge. This documentation was generated using [employer] dictation system, please disregard any oddities of phrase or misspellings. Medical Records Medical records reviewed: Yes I reviewed the patient's medical records. Quality:[facility] Health Related Social Needs: 2 Health related social needs details no reported proble ms. [place] All Active Problems (Updated 03/22/24 @ 10:57 by REESE Cordero) Breast pain, left (Acute) Unspecified open wound of left breast, initial encounter (Acute) Diarrhea (Acute) Palpable mass of soft tissue of knee (Acute) Low HDL (under 40) (Acute) Obesity without serious comorbidity (Acute) Hidradenitis suppurativa (Acute) bilateral, managed at [facility]. Pending Humira start. [facility] [place] pain clinic referral. Bilateral ovarian cysts (Chronic) seen on multiple imaging studies Loin pain hematuria syndrome (Acute) never officially diagnosed by grip wrapper Lymphedema of left lower extremity (Chronic) Anxiety (Acute 02/11/13) panic Medical History Anesthesia complication Patient with severe bradycardia with sugammadex reversal requiring compressions History of tobacco abuse quit 01/2022 History of renal calculi Endometriosis, unspecified LAPROSCOPY 2009 hysterect 2019 on OC for control Hepatomegaly Vitamin D deficiency Anemia Hepatic steatosis Surgical History S/P laparoscopic appendectomy S/P laparoscopy (2009) stage 1 endometriosis S/P laparoscopic assisted vaginal hysterectomy (LAVH) ovaries intact Hx of hand surgery L hand, pt. reports nerves were fixed Status post endovenous radiofrequency ablation (RFA) of saphenous vein for venous insufficiency 09/06/2018 wisdom teeth extraction Extracorporeal shock wave lithotripsy EGD - MAC Family History Mother Diabetes Heart disease Hyperlipidemia Father Colon cancer Heart disease Hyperlipidemia Sister Hyperlipidemia Grandfather Diabetes Grandfather Diabetes Hyperlipidemia Asthma Grandmother Diabetes Personal history of malignant neoplasm Breast Heart disease Hyperlipidemia Grandmother No problems noted. 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 Pets and animals: Yes Pets and animals: dog(s) Sexually active: Yes Do you think of yourself as: straight/heterosexual Current gender identity: female What is your relationship status?: never How often do you talk on the phone with friends or family?: three or more times per week How often do you get together with friends or relatives?: once per week How often do you attend yazidi or confucianism services?: 1-3 times per year Do you belong to any clubs or organized social groups?: no Panel score (0-1 are the most socially isolated patients): 1 What type of physical activity do you participate in: other Duration: > 90 minutes/day Frequency: 5-6 times per week Melida/Jehovah'S Witness: None Do you feel safe at home: Yes Do you feel safe in your relationship?: Yes
[2024-03-22] MEDS: oxyCODONE 5 mg/Acetaminophen 325 mg TAB 1 TAB (11:14)
== END 2024-03-22 11:19 | disposition home or self-care (01) ==
PROVIDERS: Emergency Provider Physician Assistant; PCP Nurse Practitioner Family
DX: L02.411 Cutaneous abscess of right axilla (principal); L73.2 Hidradenitis suppurativa; Z87.891 Personal history of nicotine dependence
CPT/HCPCS: 99283

== ENCOUNTER 2024-03-24 18:03 | Emergency (ER) | payer MEDICAID, SELFPAY ==
[2024-03-24 18:09] VITALS: BP 156/92; PULSE 72; RESP 15; TEMP 36.7; O2SAT 97
--- NOTE | 2024-03-24 18:26 | W.ED.GENAD ---
Discharge Plan Disposition Patient Disposition: Home Condition: Good Discharge Details Clinical Impression: Hidradenitis suppurativa Primary Care Provider: Veronica Zapata ED Provider: Brenda Kingston Home Meds and New Rx's Prescriptions: New Morphine Ir, 4 Tabs/Btl [Msir, 4 Tabs/Btl] 15 mg PO DISPENSE Qty: 0 0RF Continued sertraline 50 mg tablet 50 mg PO HS Qty: 90 3RF trazodone 100 mg tablet 100 mg PO HS Qty: 90 4RF ondansetron 4 mg tablet,disintegrating 4 mg PO Q6H PRN (Reason: nausea and vomiting) Qty: 30 0RF lidocaine 5 % ointment 1 applic topical BID PRN (Reason: pain) Qty: 50 0RF doxycycline monohydrate 100 mg capsule 100 mg PO BID Qty: 20 0RF ibuprofen 800 mg tablet 800 mg PO Q8H PRN (Reason: pain) Qty: 30 1RF Saccharomyces boulardii [Florastor] 250 mg capsule 250 mg PO BID Qty: 14 0RF mupirocin 2 % ointment 1 applic topical TID Qty: 15 0RF Discharge Instructions Additional Instructions: Please follow-up with [facility] clinic as discussed for management of your hidradenitis suppurativa. Continue with ibuprofen and Tylenol for pain control. Use the morphine as needed for severe pain only today and tomorrow. Continue doing warm compresses for 10 to 15 minutes at a time 4-5 times a day. Change dressing every time you do a warm compress. Return to emergency care if develop new fever/chills, general malaise, increased redness/swelling/streaking, or if you are very worried and need to be rechecked again immediately Referrals: Veronica Zapata [Primary Care Provider] - HPI General Date/Time Provider Initiated Documentation: 03/24/24 18:15. HPI Narrative: Rosa is a 38year old female who presents to the emergency department today for evaluation of persistent right axilla abscess. She reports that this has been ongoing for a week, she was initially treated with clindamycin and was then switched to doxycycline. She reports that she continues to have radiating burning pain all around her axilla extending into her breast and down her arm. She denies associated fever/chills, general malaise, or other systemic complaints. Past medical history is significant for hidradenitis suppurativa. She is on a call list for HS clinic at [facility], will be starting Humira. Physical exam remarkable for time size area of fluctuance and induration in the right axilla. No overlying cellulitis. Full range of motion of shoulder, no joint swelling. Distal pulses intact, brisk cap refill. History and presentation consistent with abscess due to hidradenitis suppurativa. Ultrasound performed with Dr. Walker at bedside. A small pocket of fluid collection was noted, consistent with abscess. Reviewed risk versus benefits of I&D with patient today for placement of fluid collection, she would like to have it drained because it has not improved despite appropriate antibiotics. An I&D was performed using a #11 scalpel after local infiltration with 2% lidocaine with epi 1 cc. A small amount of pus was able to be expressed. She tolerated procedure well. As she does have a history of severe pain associated with abscess that has not responded to Tylenol and ibuprofen/warm compresses, a limited number of morphine IR tablets were given for pain control over the next day after discussion of risks versus benefits of opioid medication. Reviewed discharge instructions with patient, including symptomatic management, continuation of antibiotics, importance of follow-up with HS clinic, and red flags indicating need for return to emergency care Related Data Home Medications ?Medication ?Instructions ?Recorded ?Confirmed ibuprofen 800 mg tablet 800 mg PO Q8H PRN pain #30 tabs 02/27/20 03/24/24 lidocaine 5 % topical ointment 1 applic topical BID PRN pain #50 01/13/22 03/24/24 grams Saccharomyces boulardii 250 mg 250 mg PO BID #14 caps 05/01/22 03/24/24 capsule (Florastor) sertraline 50 mg tablet 50 mg PO HS #90 tabs 05/04/22 03/24/24 trazodone 100 mg tablet 100 mg PO HS #90 tabs 05/04/22 03/24/24 ondansetron 4 mg disintegrating 4 mg PO Q6H PRN nausea and 12/07/22 03/24/24 tablet vomiting #30 tabs mupirocin 2 % topical ointment 1 applic topical TID #15 grams 07/09/23 03/24/24 doxycycline monohydrate 100 mg 100 mg PO BID #20 caps 03/22/24 03/24/24 capsule MORPHine IR, 4 tabs/btl [MSIR, 4 15 mg PO DISPENSE ##0 03/24/24 tabs/btl] Previous Rx's ?Medication ?Instructions ?Recorded ibuprofen 800 mg tablet 800 mg PO Q8H PRN pain #30 tabs 02/27/20 lidocaine 5 % topical ointment 1 applic topical BID PRN pain #50 01/13/22 grams Saccharomyces boulardii 250 mg 250 mg PO BID #14 caps 05/01/22 capsule (Florastor) sertraline 50 mg tablet 50 mg PO HS #90 tabs 05/04/22 trazodone 100 mg tablet 100 mg PO HS #90 tabs 05/04/22 ondansetron 4 mg disintegrating 4 mg PO Q6H PRN nausea and 12/07/22 tablet vomiting #30 tabs mupirocin 2 % topical ointment 1 applic topical TID #15 grams 07/09/23 doxycycline monohydrate 100 mg 100 mg PO BID #20 caps 03/22/24 capsule MORPHine IR, 4 tabs/btl [MSIR, 4 15 mg PO DISPENSE ##0 03/24/24 tabs/btl] Allergies Allergy/AdvReac Type Severity Reaction Status Date / Time cyclobenzaprine (From Allergy Intermediate Hives Unverified 03/24/24 18:12 Flexeril) cephalexin (Cephalexin) AdvReac Severe Abdominal Verified 03/24/24 18:12 Cramps sugammadex AdvReac Severe Other (See Verified 03/24/24 18:12 Comment) vancomycin AdvReac Severe diarrhea, Verified 03/24/24 18:12 redness acetaminophen AdvReac Intermediate Other (See Verified 03/24/24 18:12 Comment) Cephalosporins AdvReac Intermediate Diarrhea Verified 03/24/24 18:12 codeine phosphate (From AdvReac Intermediate Vomiting Verified 03/24/24 18:12 Tylenol-Codeine #3) ketorolac (From Toradol) AdvReac Intermediate Nausea Verified 03/24/24 18:12 silver (From Tegaderm AG AdvReac Intermediate Skin Rash Verified 03/24/24 18:12 Mesh) sulfamethoxazole (From AdvReac Intermediate Skin Rash Verified 03/24/24 18:12 Bactrim) tramadol AdvReac Intermediate Diarrhea Verified 03/24/24 18:12 trimethoprim (From Bactrim) AdvReac Intermediate Skin Rash Verified 03/24/24 18:12 General Stated Complaint: RashLesion HALINA: 4 Review of Systems Narrative: See HPI Exam Const General: cooperative, healthy appearing, no acute distress, well developed and well groomed Nutritional Appearance: average body habitus and well nourished Orientation: alert and oriented x3 Resp Effort & Inspection: normal respiratory effort and able to speak in complete sentences Skin General skin exam: other (1 cm diameter abscess noted in right axilla, confirmed on ultrasound) Trauma: no lacerations or abrasions Extrem Right upper extremity: full ROM, normal capillary refill and no joint enlargement Course Vital Signs Vital signs: Vital Signs Temperature 36.7 C 03/24/24 18:09 Pulse 72 03/24/24 18:09 Respiratory Rate 15 03/24/24 18:09 Blood Pressure 156/92 H 03/24/24 18:09 Pulse Oximetry 97 03/24/24 18:09 Temperature 36.7 C 03/24/24 18:09 Pulse 72 03/24/24 18:09 Respiratory Rate 15 03/24/24 18:09 Blood Pressure 156/92 H 03/24/24 18:09 Blood Pressure Position Sitting 03/24/24 18:09 Pulse Oximetry 97 03/24/24 18:09 Oxygen Delivery Method Room Air 03/24/24 18:09 Oxygen Flow Rate 0 03/24/24 18:09 Pain Level 9 03/24/24 18:09 Procedures Abscess I/D Site: Upper Extremity (R axilla) Local Anesthetic: Lidocaine 2% and With Epi Amount of anesthesia used (mL): 1 Technique: Incised with #11 Blade Amount of fluid expressed (mL): 1 Irrigation: Yes Packing used?: None Medical Decision Making Quality:SDOH Health Related Social Needs: Health related social needs details no reported problems. PFSH All Active Problems (Updated 03/24/24 @ 20:43 by Brenda Leroy) Breast pain, left (Acute) Unspecified open wound of left breast, initial encounter (Acute) Diarrhea (Acute) Palpable mass of soft tissue of knee (Acute) Low HDL (under 40) (Acute) Obesity without serious comorbidity (Acute) Hidradenitis suppurativa (Acute) bilateral, managed at [facility] derm. Pending Humira start. [facility] did pain clinic referral. Bilateral ovarian cysts (Chronic) seen on multiple imaging studies Loin pain hematuria syndrome (Acute) never officially diagnosed by extra hand Lymphedema of left lower extremity (Chronic) Anxiety (Acute 02/11/13) panic Medical History Anesthesia complication Patient with severe bradycardia with sugammadex reversal requiring compressions History of tobacco abuse quit 01/2022 History of renal calculi Endometriosis, unspecified LAPROSCOPY 2009 hysterect 2019 on OC for control Hepatomegaly Vitamin D deficiency Anemia Hepatic steatosis Surgical History S/P laparoscopic appendectomy S/P laparoscopy (2009) stage 1 endometriosis S/P laparoscopic assisted vaginal hysterectomy (LAVH) ovaries intact Hx of hand surgery L hand, pt. reports nerves were fixed Status post endovenous radiofrequency ablation (RFA) of saphenous vein for venous insufficiency 09/06/2018 wisdom teeth extraction Extracorporeal shock wave lithotripsy EGD - [facility] Family History Mother Diabetes Heart disease Hyperlipidemia Father Colon cancer Heart disease Hyperlipidemia Sister Hyperlipidemia Grandfather Diabetes Grandfather Diabetes Hyperlipidemia Asthma Grandmother Diabetes Personal history of malignant neoplasm Breast Heart disease Hyperlipidemia Grandmother No problems noted. 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 Pets and animals: Yes Pets and animals: dog(s) Sexually active: Yes Do you think of yourself as: straight/heterosexual Current gender identity: female What is your relationship status?: never How often do you talk on the phone with friends or family?: three or more times per week How often do you get together with friends or relatives?: once per week How often do you attend mosque or hindu services?: 1-3 times per year Do you belong to any clubs or organized social groups?: no Panel score (0-1 are the most socially isolated patients): 1 What type of physical activity do you participate in: other Duration: > 90 minutes/day Frequency: 5-6 times per week Melida/Christian: None Do you feel safe at home: Yes Do you feel safe in your relationship?: Yes
--- NOTE | 2024-03-24 20:32 | ED.PROG_ITS ---
Date of service: 03/24/24 Time of Service: 20:33 Medical Decision Making This patient has been in the emergency department multiple times with history of hidradenitis not on any Biologics. She did have a very small anechoic fluid collection on bedside ultrasound. Please see advanced practitioner note for details. She is not tachycardic nor hypotensive and her presentation is not consistent with sepsis. Quality:SDOH Health Related Social Needs: Health related social needs details no reported proble ms. Discharge Plan Discharge Details Chief Complaint: RashLesion Primary Care Provider: Veronica Zapata ED Provider: Brenda Kingston Home Meds and New Rx's Prescriptions: No Action sertraline 50 mg tablet 50 mg PO HS Qty: 90 3RF trazodone 100 mg tablet 100 mg PO HS Qty: 90 4RF ondansetron 4 mg tablet,disintegrating 4 mg PO Q6H PRN (Reason: nausea and vomiting) Qty: 30 0RF lidocaine 5 % ointment 1 applic topical BID PRN (Reason: pain) Qty: 50 0RF doxycycline monohydrate 100 mg capsule 100 mg PO BID Qty: 20 0RF ibuprofen 800 mg tablet 800 mg PO Q8H PRN (Reason: pain) Qty: 30 1RF Saccharomyces boulardii [Florastor] 250 mg capsule 250 mg PO BID Qty: 14 0RF mupirocin 2 % ointment 1 applic topical TID Qty: 15 0RF POCUS Exam (ED) Limited Soft Tissue Exam DATE OF EXAM: 03/24/24 TIME OF EXAM: 20:33 PROVIDER THAT PERFORMED THE STUDY: Otis Walker IS THIS A REPEAT EXAM DURING THIS ENCOUNTER: No LOCATION OF EXAM: Axilla/right side REASON FOR EXAM: Abscess Exam Complete DIFFERENTIAL DIAGNOSES: Anechoic fluid collection
[2024-03-24] MEDS: MORPHine IR 15 MG TAB, 4 TABS/BTL PO (21:06)
== END 2024-03-24 21:08 | disposition home or self-care (01) ==
PROVIDERS: Emergency Provider Nurse Practitioner Family; PCP Nurse Practitioner Family
DX: L73.2 Hidradenitis suppurativa (principal)
CPT/HCPCS: 00123; 10060; 76882; 99284; 99283; J2004

== ENCOUNTER 2024-04-30 08:26 | Emergency (ER) | payer MEDICAID, SELFPAY ==
[2024-04-30 08:51] VITALS: BP 146/91; PULSE 71; RESP 18; TEMP 36.8; O2SAT 98
--- NOTE | 2024-04-30 09:00 | ED.GENADUL_ITS ---
Discharge Plan Disposition Patient Disposition: Home Condition: Stable Discharge Details Clinical Impression: Hidradenitis suppurativa Primary Care Provider: Veronica Zapata ED Provider: Moises Tellez Home Meds and New Rx's Prescriptions: New clindamycin HCl 150 mg capsule 450 mg PO TID 10 Days Qty: 90 0RF Continued sertraline 50 mg tablet 50 mg PO HS Qty: 90 3RF trazodone 100 mg tablet 100 mg PO HS Qty: 90 4RF ondansetron 4 mg tablet,disintegrating 4 mg PO Q6H PRN (Reason: nausea and vomiting) Qty: 30 0RF lidocaine 5 % ointment 1 applic topical BID PRN (Reason: pain) Qty: 50 0RF ibuprofen 800 mg tablet 800 mg PO Q8H PRN (Reason: pain) Qty: 30 1RF Saccharomyces boulardii [Florastor] 250 mg capsule 250 mg PO BID Qty: 14 0RF mupirocin 2 % ointment 1 applic topical TID Qty: 15 0RF Discharge Instructions Instructions: Hidradenitis suppurativa, Clindamycin (Systemic), Oxycodone Additional Instructions: You were seen in the emergency department for your known hidradenitis suppurativa, please continue your clindamycin, use Hibiclens as soap, hot comp resses, I prescribed oral clindamycin and provided you with a to go pack of of three 5 mg tabs of oxycodone. Please return for any systemic signs of infection, pursue following up with your primary care for this problem as this is a recurrent problem and should not be primarily managed by the ER each flareup. Referrals: Veronica Zapata [Primary Care Provider] - Discharge Data Discharge Date/Time-TO BE ENTERED AT DEPARTURE: 04/30/24 09:51 HPI General Date/Time Provider Initiated Documentation: 04/30/24 08:59 . HPI Narrative: 38 year-old female presents to ED today by POV/ambulating with a chief complaint of recurrent abscess of R axilla with known hidradenitis with onset over the past week. Quality described as painful to touch, no radiation to large swelling, redness, draining pus, fever. Severity is described as moderate. Palli ating factors include has topical clindamycin at home. Provoking factors include nothing specific. Events leading up to the incident/Associated Symptoms: Patient [place] with [place] [facility] Patient not anticoagulated. Related Data Home Medications ?Medication ?Instructions ?Recorded ?Confirmed ibuprofen 800 mg tablet 800 mg PO Q8H PRN pain #30 tabs 02/27/20 04/30/24 lidocaine 5 % topical ointment 1 applic topical BID PRN pain #50 01/13/22 04/30/24 grams Saccharomyces boulardii 250 mg 250 mg PO BID #14 caps 05/01/22 04/30/24 capsule (Florastor) sertraline 50 mg tablet 50 mg PO HS #90 tabs 05/04/22 04/30/24 trazodone 100 mg tablet 100 mg PO HS #90 tabs 05/04/22 04/30/24 ondansetron 4 mg disintegrating 4 mg PO Q6H PRN nausea and 12/07/22 04/30/24 tablet vomiting #30 tabs mupirocin 2 % topical ointment 1 applic topical TID #15 grams 07/09/23 04/30/24 clindamycin HCl 150 mg capsule 450 mg (3 x 150 mg) PO TID 10 days 04/30/24 #90 caps Previous Rx's ?Medication ?Instructions ?Recorded ibuprofen 800 mg tablet 800 mg PO Q8H PRN pain #30 tabs 02/27/20 lidocaine 5 % topical ointment 1 applic topical BID PRN pain #50 01/13/22 grams Saccharomyces boulardii 250 mg 250 mg PO BID #14 caps 05/01/22 capsule (Florastor) sertraline 50 mg tablet 50 mg PO HS #90 tabs 05/04/22 trazodone 100 mg tablet 100 mg PO HS #90 tabs 05/04/22 ondansetron 4 mg disintegrating 4 mg PO Q6H PRN nausea and 12/07/22 tablet vomiting #30 tabs mupirocin 2 % topical ointment 1 applic topical TID #15 grams 07/09/23 clindamycin HCl 150 mg capsule 450 mg (3 x 150 mg) PO TID 10 days 04/30/24 #90 caps Allergies Allergy/AdvReac Type Severity Reaction Status Date / Time cyclobenzaprine (From Allergy Intermediate Hives Unverified 04/30/24 08:50 Flexeril) cephalexin (Cephalexin) AdvReac Severe Abdominal Verified 04/30/24 08:50 Cramps sugammadex AdvReac Severe Other (See Verified 04/30/24 08:50 Comment) vancomycin AdvReac Severe diarrhea, Verified 04/30/24 08:50 redness acetaminophen AdvReac Intermediate Other (See Verified 04/30/24 08:50 Comment) Cephalosporins AdvReac Intermediate Diarrhea Verified 04/30/24 08:50 codeine phosphate (From AdvReac Intermediate Vomiting Verified 04/30/24 08:50 Tylenol-Codeine #3) ketorolac (From Toradol) AdvReac Intermediate Nausea Verified 04/30/24 08:50 silver (From Tegaderm AG AdvReac Intermediate Skin Rash Verified 04/30/24 08:50 Mesh) sulfamethoxazole (From AdvReac Intermediate Skin Rash Verified 04/30/24 08:50 Bactrim) tramadol AdvReac Intermediate Diarrhea Verified 04/30/24 08:50 trimethoprim (From Bactrim) AdvReac Intermediate Skin Rash Verified 04/30/24 08:50 General Stated Complaint: Cellulitis HALINA: 4 Review of Systems All systems reviewed & are unremarkable except as noted in HPI and below Exam Narrative Exam Narrative: GENERAL APPEARANCE: Well-nourished, non-toxic, awake and alert, atraumatic, no acute distress. SKIN: Warm, pink, dry, intact, <0.2cm papule at R axilla, no active drainage, no large fluctuant abscesses HEAD: Normocephalic, atraumatic, normal hair distribution for gender/age. EYES: Normal conjunctiva, no exudates on lids/lashes. ENT: Nares patent, no circumoral cyanosis, no facial swelling NECK: Supple, trachea midline, painless cervical ROM. LUNGS/CHEST: Non-labored respirations, normal A/P diameter, symmetrical expansion, no chest wall deformity HEART (CV/PV): No peripheral edema, no JVD. ABDOMEN: Soft, non-distended, no guarding. MSK: Normal ROM, no swelling/deformity to bilateral UEs or LEs, moving all extremities without weakness, no cyanosis, spine midline without tenderness, normal curvature. NEURO: Mental Status AAOx4 - alert to person, place, time, events No facial droop, no forehead involvement. Motor: No focal weakness - strength 5/5 in bilateral UEs and LEs, proximal and distal, symmetric. Sensory: sensation intact to light touch globally. Gait normal: patient ambulated without ataxia into ED room. PSYCH: euthymic, cooperative, pleasant, appropriate speech Course Vital Signs Vital signs: Vital Signs Temperature 36.8 C 04/30/24 08:51 Pulse 71 04/30/24 08:51 Respiratory Rate 18 04/30/24 08:51 Blood Pressure 146/91 H 04/30/24 08:51 Pulse Oximetry 98 04/30/24 08:51 Temperature 36.8 C 04/30/24 08:51 Temperature Source Oral 04/30/24 08:51 Pulse 71 04/30/24 08:51 Respiratory Rate 18 04/30/24 08:51 Blood Pressure 146/91 H 04/30/24 08:51 Pulse Oximetry 98 04/30/24 08:51 Pain Level 8 04/30/24 08:51 Medical Decision Making This dictation utilizes [id number] dictation software and may contain unedited grammatical errors. 38 year-old female presents to ED today by POV/ambulating with a chief complaint of recurrent abscess of R axilla with known hidradenitis with onset over the past week. Quality described as painful to touch, no radiation to large swelling, redness, draining pus, fever. Severity is described as moderate. Palliating factors include has topical clindamycin at home. Provoking factors include nothing specific. Events leading up to the incident/Associated Symptoms: Patient is on a [place] with [place] [facility] Patients' medical history: Known hidradenitis suppurativa. Family and social history: Patient has quit smoking about a year ago, otherwise noncontributory. Pertinent exam findings / vital signs include small 0.25 cm abscess in the right axilla of hidradenitis, nonfluctuant, mild erythema without any drainage. Differential / pathologies of concern include hidradenitis suppurtiva. Diagnostic studies of: -None. Interventions of: -Rx for clindamycin orally, 3 tabs of oxycodone to go. ED Course/Assessment/Plan: 38-year-old female well-known to the department presents with known hidradenitis suppurativa requesting antibiotics and narcotic pain management, patient should follow-up with PCP as this is a recurrent problem and not acute, she has made strides with less frequency of recurrence with showering with Hibiclens, using hot compresses and has made gains in pursuing definitive follow-up with [facility] [place], counseled on need for follow-up with PCP for ongoing problems, strict return criteria for any signs of systemic infection. Findings not consistent with systemic infection, large abscess, sepsis. Disposition of hidradenitis suppurativa. Patient verbalized understanding of the plan and return to ED criteria and engaged in shared decision making. Medical Records Medical records reviewed: Yes I reviewed the patient's medical records. Quality:[facility] Health Related Social Needs: Health related social needs details no reported proble ms. [place] All Active Problems (Updated 04/30/24 @ 09:25 by REESE Rand) Hidradenitis suppurativa (Acute) Breast pain, left (Acute) Unspecified open wound of left breast, initial encounter (Acute) Diarrhea (Acute) Palpable mass of soft tissue of knee (Acute) Low HDL (under 40) (Acute) Obesity without serious comorbidity (Acute) Hidradenitis suppurativa (Acute) bilateral, managed at [facility] [place]. Pending Humira start. [facility] [place] clinic [place]. Bilateral ovarian cysts (Chronic) seen on multiple imaging studies Loin pain hematuria syndrome (Acute) never officially diagnosed by doctor naturopathic Lymphedema of left lower extremity (Chronic) Anxiety (Acute 02/11/13) panic Medical History Anesthesia complication Patient with severe bradycardia with sugammadex reversal requiring compressions History of tobacco abuse quit 01/2022 History of renal calculi Endometriosis, unspecified LAPROSCOPY 2009 hysterect 2019 on OC for control Hepatomegaly Vitamin D deficiency Anemia Hepatic steatosis Surgical History S/P laparoscopic appendectomy S/P laparoscopy (2009) stage 1 endometriosis S/P laparoscopic assisted vaginal hysterectomy (LAVH) ovaries intact Hx of hand surgery L hand, pt. reports nerves were fixed Status post endovenous radiofrequency ablation (RFA) of saphenous vein for venous insufficiency 09/06/2018 wisdom teeth extraction Extracorporeal shock wave lithotripsy EGD - MAC Family History Mother Diabetes Heart disease Hyperlipidemia Father Colon cancer Heart disease Hyperlipidemia Sister Hyperlipidemia Grandfather Diabetes Grandfather Diabetes Hyperlipidemia Asthma Grandmother Diabetes Personal history of malignant neoplasm Breast Heart disease Hyperlipidemia Grandmother No problems noted. 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 Pets and animals: Yes Pets and animals: dog(s) Sexually active: Yes Do you think of yourself as: straight/heterosexual Current gender identity: female What is your relationship status?: never How often do you talk on the phone with friends or family?: three or more times per week How often do you get together with friends or relatives?: once per week How often do you attend scientologist or presybeterian services?: 1-3 times per year Do you belong to any clubs or organized social groups?: no Panel score (0-1 are the most socially isolated patients): 1 What type of physical activity do you participate in: other Duration: > 90 minutes/day Frequency: 5-6 times per week Melida/Shinto: None Do you feel safe at home: Yes Do you feel safe in your relationship?: Yes
[2024-04-30] MEDS: oxyCODONE 5 MG TAB 15 MG PO (09:47)
== END 2024-04-30 09:51 | disposition home or self-care (01) ==
PROVIDERS: Emergency Provider Physician Assistant; PCP Nurse Practitioner Family
DX: L73.2 Hidradenitis suppurativa (principal)
CPT/HCPCS: 99283

== ENCOUNTER 2024-05-07 08:15 | Emergency (ER) | payer MEDICAID, SELFPAY ==
[2024-05-07 08:24] VITALS: BP 139/92; PULSE 69; RESP 15; O2SAT 99
--- NOTE | 2024-05-07 08:31 | ED.GENADUL_ITS ---
Discharge Plan Disposition Patient Disposition: Home Condition: Stable Discharge Details Clinical Impression: Drug-seeking behavior Primary Care Provider: Veronica Zapata ED Provider: Alida Hudson Home Meds and New Rx's Prescriptions: No Action sertraline 50 mg tablet 50 mg PO HS Qty: 90 3RF trazodone 100 mg tablet 100 mg PO HS Qty: 90 4RF ondansetron 4 mg tablet,disintegrating 4 mg PO Q6H PRN (Reason: nausea and vomiting) Qty: 30 0RF lidocaine 5 % ointment 1 applic topical BID PRN (Reason: pain) Qty: 50 0RF clindamycin HCl 150 mg capsule 450 mg PO TID 10 Days Qty: 90 0RF ibuprofen 800 mg tablet 800 mg PO Q8H PRN (Reason: pain) Qty: 30 1RF Saccharomyces boulardii [Florastor] 250 mg capsule 250 mg PO BID Qty: 14 0RF mupirocin 2 % ointment 1 applic topical TID Qty: 15 0RF Discharge Instructions Additional Instructions: You have no noted abscess in your axilla. Given your reported history of hidradenitis you can continue using the topical doxycycline. There is no indication for continued oral antibiotics. There is no indication for any narcotic therapy. Please keep your follow-up appointments. HPI General Date/Time Provider Initiated Documentation: 05/07/24 08:30 . Limitations to Documentation: no limitations . Information obtained by: patient and old records reviewed . HPI Narrative: 38-year-old female with past medical history of hidradenitis suppurativa presents for evaluation of pain and abscess in her right axilla. She reports that she was here in the department for a separate abscess last week and was treated with oral clindamycin as well as topical doxycycline. She reports that she has only 1 dose left of the clindamycin. She denies any fever. She reports severe pain in her armpit at the site of the abscess. She reports that her care plan is to come to the emergency department for narcotic pain medication and antibiotics to prevent the need for incision and drainage. She reports that she is scheduled to start Humira. Related Data Home Medications ?Medication ?Instructions ?Recorded ?Confirmed ibuprofen 800 mg tablet 800 mg PO Q8H PRN pain #30 tabs 02/27/20 05/07/24 lidocaine 5 % topical ointment 1 applic topical BID PRN pain #50 01/13/22 05/07/24 grams Saccharomyces boulardii 250 mg 250 mg PO BID #14 caps 05/01/22 05/07/24 capsule (Florastor) sertraline 50 mg tablet 50 mg PO HS #90 tabs 05/04/22 05/07/24 trazodone 100 mg tablet 100 mg PO HS #90 tabs 05/04/22 05/07/24 ondansetron 4 mg disintegrating 4 mg PO Q6H PRN nausea and 12/07/22 05/07/24 tablet vomiting #30 tabs mupirocin 2 % topical ointment 1 applic topical TID #15 grams 07/09/23 05/07/24 clindamycin HCl 150 mg capsule 450 mg (3 x 150 mg) PO TID 10 days 04/30/24 05/07/24 #90 caps Previous Rx's ?Medication ?Instructions ?Recorded ibuprofen 800 mg tablet 800 mg PO Q8H PRN pain #30 tabs 02/27/20 lidocaine 5 % topical ointment 1 applic topical BID PRN pain #50 01/13/22 grams Saccharomyces boulardii 250 mg 250 mg PO BID #14 caps 05/01/22 capsule (Florastor) sertraline 50 mg tablet 50 mg PO HS #90 tabs 05/04/22 trazodone 100 mg tablet 100 mg PO HS #90 tabs 05/04/22 ondansetron 4 mg disintegrating 4 mg PO Q6H PRN nausea and 12/07/22 tablet vomiting #30 tabs mupirocin 2 % topical ointment 1 applic topical TID #15 grams 07/09/23 clindamycin HCl 150 mg capsule 450 mg (3 x 150 mg) PO TID 10 days 04/30/24 #90 caps Allergies Allergy/AdvReac Type Severity Reaction Status Date / Time cyclobenzaprine (From Allergy Intermediate Hives Unverified 05/07/24 08:27 Flexeril) cephalexin (Cephalexin) AdvReac Severe Abdominal Verified 05/07/24 08:27 Cramps sugammadex AdvReac Severe Other (See Verified 05/07/24 08:27 Comment) vancomycin AdvReac Severe diarrhea, Verified 05/07/24 08:27 redness acetaminophen AdvReac Intermediate Other (See Verified 05/07/24 08:27 Comment) Cephalosporins AdvReac Intermediate Diarrhea Verified 05/07/24 08:27 codeine phosphate (From AdvReac Intermediate Vomiting Verified 05/07/24 08:27 Tylenol-Codeine #3) ketorolac (From Toradol) AdvReac Intermediate Nausea Verified 05/07/24 08:27 silver (From Tegaderm AG AdvReac Intermediate Skin Rash Verified 05/07/24 08:27 Mesh) sulfamethoxazole (From AdvReac Intermediate Skin Rash Verified 05/07/24 08:27 Bactrim) tramadol AdvReac Intermediate Diarrhea Verified 05/07/24 08:27 trimethoprim (From Bactrim) AdvReac Intermediate Skin Rash Verified 05/07/24 08:27 General Stated Complaint: RashLesion HALINA: 4 Exam Narrative Exam Narrative: Review of Systems: All systems reviewed & are unremarkable except as noted in HPI and below Well-developed, no acute distress NCAT Unlabored respiratory effort Right axilla with no overlying skin change, no induration, no palpable lymphadenopathy or abnormality noted, though the patient winces in pain with any touching of the area Course Vital Signs Vital signs: Vital Signs Pulse 69 05/07/24 08:24 Respiratory Rate 15 05/07/24 08:24 Blood Pressure 139/92 H 05/07/24 08:24 Pulse Oximetry 99 05/07/24 08:24 Pulse 69 05/07/24 08:24 Respiratory Rate 15 05/07/24 08:24 Blood Pressure 139/92 H 05/07/24 08:24 Blood Pressure Position Sitting 05/07/24 08:24 Pulse Oximetry 99 05/07/24 08:24 Oxygen Delivery Method Room Air 05/07/24 08:24 Oxygen Flow Rate 0 05/07/24 08:24 Pain Level 10 05/07/24 08:24 Medical Decision Making Emergent evaluation of right axillary pain. The patient reports a history of hidradenitis and that there is an abscess in her axilla. On my evaluation there is no noted abscess. I have seen this patient previously and noted her multiple emergency department visits. She is requesting narcotic pain medication. And she states that this is always what she is given and that Motrin and Tylenol do nothing for her pain. When I informed the patient that she would not be receiving any narcotic pain medication, she became very belligerent and agitated. She began yelling at me. She ripped her hospital bracelet off and threw it on the floor. She said do not even bother discharging me. She stated that if I do not give her the pain medication that this is just going to get worse and she is going to have to come back here and have it drained. I advised that narcotics do not help with infections and that at this time there is no apparent infection or fluid collection in her axilla. There is no indication for additional oral antibiotics. Given her reported history she can continue the topical doxycycline. HoweveR at this time the patient appears to have drug-seeking behavior and no additional medical concerns. Quality:[facility] Health Related Social Needs: Health related social needs details no reported proble ms. [place] All Active Problems (Updated 04/30/24 @ 09:25 by REESE Rand) Drug-seeking behavior (Acute) Hidradenitis suppurativa (Acute) Breast pain, left (Acute) Unspecified open wound of left breast, initial encounter (Acute) Diarrhea (Acute) Palpable mass of soft tissue of knee (Acute) Low HDL (under 40) (Acute) Obesity without serious comorbidity (Acute) Hidradenitis suppurativa (Acute) bilateral, [place] [facility] [place] Pending Humira start. [facility] [place]. Bilateral ovarian cysts (Chronic) seen on multiple imaging studies Loin pain hematuria syndrome (Acute) never officially diagnosed by die designer Lymphedema of left lower extremity (Chronic) Anxiety (Acute 02/11/13) panic Medical History Anesthesia complication Patient with severe bradycardia with sugammadex reversal requiring compressions History of tobacco abuse quit 01/2022 History of renal calculi Endometriosis, unspecified LAPROSCOPY 2009 hysterect 2019 on OC for control Hepatomegaly Vitamin D deficiency Anemia Hepatic steatosis Surgical History S/P laparoscopic appendectomy S/P laparoscopy (2009) stage 1 endometriosis S/P laparoscopic assisted vaginal hysterectomy (LAVH) ovaries intact Hx of hand surgery L hand, pt. reports nerves were fixed Status post endovenous radiofrequency ablation (RFA) of saphenous vein for venous insufficiency 09/06/2018 wisdom teeth extraction Extracorporeal shock wave lithotripsy EGD - [facility] Family History Mother Diabetes Heart disease Hyperlipidemia Father Colon cancer Heart disease Hyperlipidemia Sister Hyperlipidemia Grandfather Diabetes Grandfather Diabetes Hyperlipidemia Asthma Grandmother Diabetes Personal history of malignant neoplasm Breast Heart disease Hyperlipidemia Grandmother No problems noted. 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 Pets and animals: Yes Pets and animals: dog(s) Sexually active: Yes Do you think of yourself as: straight/heterosexual Current gender identity: female What is your relationship status?: never How often do you talk on the phone with friends or family?: three or more times per week How often do you get together with friends or relatives?: once per week How often do you attend uatsdin or christianity services?: 1-3 times per year Do you belong to any clubs or organized social groups?: no Panel score (0-1 are the most socially isolated patients): 1 What type of physical activity do you participate in: other Duration: > 90 minutes/day Frequency: 5-6 times per week Melida/Buddhist: None Do you feel safe at home: Yes Do you feel safe in your relationship?: Yes
== END 2024-05-07 08:34 | disposition home or self-care (01) ==
PROVIDERS: Emergency Provider Emergency Medicine; PCP Nurse Practitioner Family
DX: Z76.5 Malingerer [conscious simulation] (principal)
CPT/HCPCS: 99281; 99282

== ENCOUNTER 2024-06-01 17:09 | Emergency (ER) | payer MEDICAID, SELFPAY ==
[2024-06-01 17:12] VITALS: BP 168/94; PULSE 74; RESP 18; TEMP 37.4; O2SAT 98
[2024-06-01 17:15] VITALS: BP 168/94; PULSE 74; RESP 18; TEMP 37.4; O2SAT 98
--- NOTE | 2024-06-01 17:42 | NUR.NOTE ---
Pt has hx of abscesses in axilla, chronic condition. Has referral to dermatology. Pt reports she cannot get in for several months. Pt requesting pain meds, REESE explained pt is at risk for substance use/abuse and is not going to prescribe her narcotics. PA offered her antibiotics, offered to drain abscesses, offered her a referral. Pt refused all of these. Pt was being discharged, as she was refusing treatment options. Pt visibly irritated when RN entered the room. DC instructions were read to pt and she denied she had any further questions. When asked to sign we went over the DC instructions, pt stated I am not signing anything. RN informed her that was okay and offered her her DC instruction printout. Pt refused printed DC instructions and educational information. Pt left ED without further interaction. Cristi Esquivel, SADAFN, RN
--- NOTE | 2024-06-01 19:51 | W.ED.GENAD ---
Discharge Plan Disposition Patient Disposition: Home Condition: Stable Discharge Details Clinical Impression: Abscess of axilla, left, Hidradenitis Primary Care Provider: Veronica Zapata ED Provider: Lesvia German Home Meds and New Rx's Prescriptions: Continued sertraline 50 mg tablet 50 mg PO HS Qty: 90 3RF trazodone 100 mg tablet 100 mg PO HS Qty: 90 4RF ondansetron 4 mg tablet,disintegrating 4 mg PO Q6H PRN (Reason: nausea and vomiting) Qty: 30 0RF lidocaine 5 % ointment 1 applic topical BID PRN (Reason: pain) Qty: 50 0RF ibuprofen 800 mg tablet 800 mg PO Q8H PRN (Reason: pain) Qty: 30 1RF Saccharomyces boulardii [Florastor] 250 mg capsule 250 mg PO BID Qty: 14 0RF mupirocin 2 % ointment 1 applic topical TID Qty: 15 0RF Discharge Instructions Instructions: Hidradenitis suppurativa, Boil, Adult ED Additional Instructions: please try to be reevaluated by your radio adjuster and placed on cancellation list for your hidradenitis apply mupirocin ointment topically 3 times daily and warm compresses you have declined oral antibiotics and drainage i'm listing a surgeon below for incision and drainage should you change your mind regarding care Referrals: Hair Shore MD [ [facility] STAFF PHYSICIAN] - 1 week Discharge Data Discharge Date/Time-TO BE ENTERED AT DEPARTURE: 06/01/24 17:39 HPI General Date/Time Provider Initiated Documentation: 06/01/24 17:11. HPI Narrative: 38-year-old female with hidradenitis, presenting with 2 abscesses in the left axilla causing discomfort for 3 days. Awaiting dermatology appointment in September 2024 to start biologic therapy. Related Data Home Medications ?Medication ?Instructions ?Recorded ?Confirmed ibuprofen 800 mg tablet 800 mg PO Q8H PRN pain #30 tabs 02/27/20 06/01/24 lidocaine 5 % topical ointment 1 applic topical BID PRN pain #50 01/13/22 06/01/24 grams Saccharomyces boulardii 250 mg 250 mg PO BID #14 caps 05/01/22 06/01/24 capsule (Florastor) sertraline 50 mg tablet 50 mg PO HS #90 tabs 05/04/22 06/01/24 trazodone 100 mg tablet 100 mg PO HS #90 tabs 05/04/22 06/01/24 ondansetron 4 mg disintegrating 4 mg PO Q6H PRN nausea and 12/07/22 06/01/24 tablet vomiting #30 tabs mupirocin 2 % topical ointment 1 applic topical TID #15 grams 07/09/23 06/01/24 Previous Rx's ?Medication ?Instructions ?Recorded ibuprofen 800 mg tablet 800 mg PO Q8H PRN pain #30 tabs 02/27/20 lidocaine 5 % topical ointment 1 applic topical BID PRN pain #50 01/13/22 grams Saccharomyces boulardii 250 mg 250 mg PO BID #14 caps 05/01/22 capsule (Florastor) sertraline 50 mg tablet 50 mg PO HS #90 tabs 05/04/22 trazodone 100 mg tablet 100 mg PO HS #90 tabs 05/04/22 ondansetron 4 mg disintegrating 4 mg PO Q6H PRN nausea and 12/07/22 tablet vomiting #30 tabs mupirocin 2 % topical ointment 1 applic topical TID #15 grams 07/09/23 Allergies Allergy/AdvReac Type Severity Reaction Status Date / Time cyclobenzaprine (From Allergy Intermediate Hives Unverified 06/01/24 17:14 Flexeril) cephalexin (Cephalexin) AdvReac Severe Abdominal Verified 06/01/24 17:14 Cramps sugammadex AdvReac Severe Other (See Verified 06/01/24 17:14 Comment) vancomycin AdvReac Severe diarrhea, Verified 06/01/24 17:14 redness acetaminophen AdvReac Intermediate Other (See Verified 06/01/24 17:14 Comment) Cephalosporins AdvReac Intermediate Diarrhea Verified 06/01/24 17:14 codeine phosphate (From AdvReac Intermediate Vomiting Verified 06/01/24 17:14 Tylenol-Codeine #3) ketorolac (From Toradol) AdvReac Intermediate Nausea Verified 06/01/24 17:14 silver (From Tegaderm AG AdvReac Intermediate Skin Rash Verified 06/01/24 17:14 Mesh) sulfamethoxazole (From AdvReac Intermediate Skin Rash Verified 06/01/24 17:14 Bactrim) tramadol AdvReac Intermediate Diarrhea Verified 06/01/24 17:14 trimethoprim (From Bactrim) AdvReac Intermediate Skin Rash Verified 06/01/24 17:14 General Stated Complaint: Cellulitis HALINA: 3 Exam Narrative Exam Narrative: General Appearance: Alert, oriented, not in acute distress. Vital signs: Within normal limits. HEENT: Within normal limits. Respiratory: Within normal limits. Cardiovascular: Gastrointestinal: Genitourinary: Lymphatic: Back, Musculoskeletal: Extremities: Skin: 2 indurated, non-fluctuant abscesses with erythema at 1100 hours and 1300 hours positions in the left axilla, each 3-4 mm. No significant surrounding cellulitis or lymphangitis. Neurological: Normal. Psychiatric: Other observations: Nontoxic appearance. Course Vital Signs Vital signs: Vital Signs Temperature 37.4 C 06/01/24 17:12 Pulse 74 06/01/24 17:12 Respiratory Rate 18 06/01/24 17:12 Blood Pressure 168/94 H 06/01/24 17:12 Pulse Oximetry 98 06/01/24 17:12 Temperature 37.4 C 06/01/24 17:15 Temperature Source Oral 06/01/24 17:15 Pulse 74 06/01/24 17:15 Respiratory Rate 18 06/01/24 17:15 Blood Pressure 168/94 H 06/01/24 17:15 Pulse Oximetry 98 06/01/24 17:15 Medical Decision Making Initial Assessment: 38-year-old female with a history of hidradenitis presenting with two abscesses in the left axilla for 3 days. No fever or chills. Alert, oriented, and in no acute distress. Abscesses at 11:00 and 1:00 positions, indurated, non-fluctuant, with erythema. No significant cellulitis or lymphangitis. Nontoxic appearance. Differential Diagnosis: - Hidradenitis suppurativa: History of hidradenitis with extensive opioid use. PDMP review shows concerning opioid prescriptions over the past 1-2 years. Opioids not prescribed today; patient upset. Offered incision and drainage, which she refused without opioid analgesia. Declined oral antibiotics and surgical referral. Advised to use topical mupirocin and warm compresses. Encouraged to contact radio adjuster for possible earlier appointment. ED Course: - Reviewed PDMP: Concerning opioid prescriptions over the past 1-2 years. - Offered incision and drainage: Patient refused without opioid analgesia. - Offered oral antibiotics: Patient declined. - Provided surgical referral: Patient declined. - Advised use of topical mupirocin and warm compresses. - Encouraged to contact radio adjuster for possible earlier appointment. - Patient refused to sign discharge paperwork. Final Assessment: Patient with hidradenitis suppurativa and two abscesses in the left axilla. Refused incision and drainage without opioid analgesia. Declined oral antibiotics and surgical referral. Advised to use topical mupirocin and warm compresses. Encouraged to contact radio adjuster for possible earlier appointment. Further ED assessment not possible due to treatment refusal. Clinical Impression: - Hidradenitis suppurativa Disposition: - Discharge MDM Components Evaluation: - Number of Differential Diagnoses or Management Options: Hidradenitis suppurativa - Amount and Complexity of Data Reviewed: PDMP review - Risk of Complication and Morbidity or Mortality: High risk due to extensive opioid use and refusal of recommended treatments. Quality:[facility] Health Related Social Needs: Health related social needs details no reported problems. [facility] All Active Problems (Updated 06/01/24 @ 17:30 by REESE Carbajal) Hidradenitis (Acute) Abscess of axilla, left (Acute) Drug-seeking behavior (Acute) Breast pain, left (Acute) Unspecified open wound of left breast, initial encounter (Acute) Diarrhea (Acute) Palpable mass of soft tissue of knee (Acute) Low HDL (under 40) (Acute) Obesity without serious comorbidity (Acute) Hidradenitis suppurativa (Acute) bilateral, managed at [facility] derm. Pending Humira start. [facility] did pain clinic referral. Bilateral ovarian cysts (Chronic) seen on multiple imaging studies Loin pain hematuria syndrome (Acute) never officially diagnosed by calker Lymphedema of left lower extremity (Chronic) Anxiety (Acute 02/11/13) panic Medical History Anesthesia complication Patient with severe bradycardia with sugammadex reversal requiring compressions History of tobacco abuse quit 01/2022 History of renal calculi Endometriosis, unspecified LAPROSCOPY 2010 hysterect 2019 on OC for control Hepatomegaly Vitamin D deficiency Anemia Hepatic steatosis Surgical History S/P laparoscopic appendectomy S/P laparoscopy (2009) stage 1 endometriosis S/P laparoscopic assisted vaginal hysterectomy (LAVH) ovaries intact Hx of hand surgery L hand, pt. reports nerves were fixed Status post endovenous radiofrequency ablation (RFA) of saphenous vein for venous insufficiency 09/06/2018 wisdom teeth extraction Extracorporeal shock wave lithotripsy EGD - MAC Family History Mother Diabetes Heart disease Hyperlipidemia Father Colon cancer Heart disease Hyperlipidemia Sister Hyperlipidemia Grandfather Diabetes Grandfather Diabetes Hyperlipidemia Asthma Grandmother Diabetes Personal history of malignant neoplasm Breast Heart disease Hyperlipidemia Grandmother No problems noted. 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 Pets and animals: Yes Pets and animals: dog(s) Sexually active: Yes Do you think of yourself as: straight/heterosexual Current gender identity: female What is your relationship status?: never How often do you talk on the phone with friends or family?: three or more times per week How often do you get together with friends or relatives?: once per week How often do you attend restorationist or confucianist services?: 1-3 times per year Do you belong to any clubs or organized social groups?: no Panel score (0-1 are the most socially isolated patients): 1 What type of physical activity do you participate in: other Duration: > 90 minutes/day Frequency: 5-6 times per week Melida/Bahai: None Do you feel safe at home: Yes Do you feel safe in your relationship?: Yes
== END 2024-06-01 17:39 | disposition home or self-care (01) ==
PROVIDERS: Emergency Provider Physician Assistant; PCP Nurse Practitioner Family
DX: L02.412 Cutaneous abscess of left axilla (principal); L73.2 Hidradenitis suppurativa; Z72.89 Other problems related to lifestyle; Z87.891 Personal history of nicotine dependence
CPT/HCPCS: 99283

== ENCOUNTER 2024-07-15 18:42 | Outpatient (REF) | payer MEDICAID, SELFPAY ==
[2024-07-15 21:21] LABS: Bilirubin Negative (Negative); Blood Moderate (Negative); Clarity Sl Cloudy (Clear); Glucose Negative (Negative); Ketones Negative (Negative); Leukocyte Esterase Negative (Negative); Nitrite Negative (Negative); Urobilinogen 0.2 mg/dL (Up to 0.2)
[2024-07-15 21:30] LABS: RBC >50 HPF (0-2)
[2024-07-15 21:31] LABS: C & S Indicated? No
== END 2024-07-15 18:43 | disposition home or self-care (01) ==
LOC: LBN 18:42
PROVIDERS: PCP Nurse Practitioner Family; Visit Provider Nurse Practitioner Family
DX: R39.9 Unspecified symptoms and signs involving the genitourinary system (principal)
CPT/HCPCS: 81003; 81015

== ENCOUNTER 2024-07-18 01:49 | Outpatient (CLI) | payer MEDICAID, SELFPAY ==
--- NOTE | 2024-07-18 07:00 | DI.US_ITS ---
Exam(s) US RENAL EXAM: US RENAL CLINICAL HISTORY: eval renal stone vs alternate pathology,HEMATURIA, FLANK PAIN,R31.9,R10.9. TECHNIQUE: Paez scale, color and spectral Doppler were used. COMPARISON: US US RENAL from 07/30/[address] ABDOMEN PELVIS W from 04/13/[address] ABDOMEN PELVIS W from 04/20/2023 FINDINGS: Renal size in cm: Right: 10.4. Left: 11.4. Echogenicity: Normal. Hydronephrosis: No. Cyst or mass: No. Nephrolithiasis: No. Other findings: Note is made of hepatic steatosis. Bladder:Normal. Ureteral jets: Right: Not visualized on this examination. Left: Not visualized on this examination. Prevoid vol:130 cc Postvoid vol:0 cc Renal color flow: Symmetric and within normal limits. IMPRESSION: No evidence of nephrolithiasis or hydronephrosis. DATA REPOSITORY:
== END 2024-07-18 02:09 ==
LOC: DI 01:49
PROVIDERS: PCP Nurse Practitioner Family; Visit Provider Nurse Practitioner Family
DX: R31.9 Hematuria, unspecified (principal); R10.9 Unspecified abdominal pain
CPT/HCPCS: 76770

== ENCOUNTER 2024-11-04 16:26 | Outpatient (REF) | payer MEDICAID, SELFPAY ==
[2024-11-04 17:15] LABS: Abs Immature Grans 0.02 10^3/uL (0.0-0.06); HCT 44.5 % (36.0-46.0); HGB 15.4 g/dL (11.2-15.7); Immature Grans % 0.3 %; MCH 33.3 pg (27.0-33.0); MCHC 34.6 % (32.0-36.0); MCV 96 fL (80-95); MPV 10.4 fL (8.0-11.0); Platelet Count 214 10^3/uL (130-400); RBC 4.63 10^6/uL (3.93-5.22); RDW 12.0 % (11.7-14.6); RDW-SD 42.3 fL; WBC 5.95 10^3/uL (4.4-10.8)
[2024-11-04 17:50] LABS: ALT 19 U/L (14-59); AST 14 U/L (15-37); Albumin 4.1 g/dL (3.4-5.0); Alkaline Phosphatase 81 U/L (46-116); Anion Gap 9.5 mmol/L (3-11); BUN 5 mg/dL (7-18); Bilirubin, Total 0.4 mg/dL (0.2-1.0); CO2 26.5 mmol/L (21.0-32.0); Calcium 8.9 mg/dL (8.5-10.1); Chloride 105 mmol/L (98-107); Estimated GFR 117.75 (mL/min/1.73m2); Glucose 110 mg/dL (74-106); Potassium 3.9 mmol/L (3.5-5.1); Sodium 141 mmol/L (136-145); Total Protein 7.0 g/dL (6.4-8.2); Vitamin D 25 Total 23 ng/mL (30-100)
[2024-11-04 22:25] LABS: HBs Antibody, Quant 6.8 mIU/mL (See Note); Hepatitis B Surface Ab Negative (See Note)
[2024-11-04 23:06] LABS: Hep A Total Ab w Rflx IgM Negative (Negative)
== END 2024-11-04 16:27 | disposition home or self-care (01) ==
LOC: NCHCN 16:26
PROVIDERS: PCP Nurse Practitioner Family; Visit Provider Nurse Practitioner Family
DX: R79.89 Other specified abnormal findings of blood chemistry (principal); K76.0 Fatty (change of) liver, not elsewhere classified
CPT/HCPCS: 80053; 82306; 86706; 86709; 85025

== ENCOUNTER 2024-11-26 18:14 | Emergency (ER) | payer MEDICAID, SELFPAY ==
[2024-11-26 18:27] VITALS: BP 143/84; PULSE 82; RESP 16; TEMP 36.7; O2SAT 98
--- NOTE | 2024-11-28 10:48 | W.ED.GENAD ---
Discharge Plan Disposition Patient Disposition: Home Condition: Stable Discharge Details Clinical Impression: Laceration of thumb Primary Care Provider: Veronica Zapata ED Provider: Lesvia German Home Meds and New Rx's Prescriptions: Continued sertraline 50 mg tablet 50 mg PO HS Qty: 90 3RF trazodone 100 mg tablet 100 mg PO HS Qty: 90 4RF ondansetron 4 mg tablet,disintegrating 4 mg PO Q6H PRN (Reason: nausea and vomiting) Qty: 30 0RF lidocaine 5 % ointment 1 applic topical BID PRN (Reason: pain) Qty: 50 0RF Saccharomyces boulardii [Florastor] 250 mg capsule 250 mg PO BID Qty: 14 0RF mupirocin 2 % ointment 1 applic topical TID Qty: 15 0RF Discharge Instructions Instructions: Laceration Repair With Stitches ED Additional Instructions: keep wound clean and dry allow to air dry after 48 hours during night, keep covered as needed to keep clean suture removal in 10 days return with spreading redness, fever, worsening pain do not submerge in water until suture removed Referrals: Veronica Zapata [Primary Care Provider, Medicine] Discharge Data Discharge Date/Time-TO BE ENTERED AT DEPARTURE: 11/26/24 19:49 HPI General Date/Time Provider Initiated Documentation: 11/26/24 19:42. 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 States her tetanus is up-to-date. Denies any additional injuries. Related Data Home Medications ?Medication ?Instructions ?Recorded ?Confirmed lidocaine 5 % topical ointment 1 applic topical BID PRN pain #50 01/13/22 11/26/24 grams Saccharomyces boulardii 250 mg 250 mg PO BID #14 caps 05/01/22 11/26/24 capsule (Florastor) sertraline 50 mg tablet 50 mg PO HS #90 tabs 05/04/22 11/26/24 trazodone 100 mg tablet 100 mg PO HS #90 tabs 05/04/22 11/26/24 ondansetron 4 mg disintegrating 4 mg PO Q6H PRN nausea and 12/07/22 11/26/24 tablet vomiting #30 tabs mupirocin 2 % topical ointment 1 applic topical TID #15 grams 07/09/23 11/26/24 Previous Rx's ?Medication ?Instructions ?Recorded lidocaine 5 % topical ointment 1 applic topical BID PRN pain #50 01/13/22 grams Saccharomyces boulardii 250 mg 250 mg PO BID #14 caps 05/01/22 capsule (Florastor) sertraline 50 mg tablet 50 mg PO HS #90 tabs 05/04/22 trazodone 100 mg tablet 100 mg PO HS #90 tabs 05/04/22 ondansetron 4 mg disintegrating 4 mg PO Q6H PRN nausea and 12/07/22 tablet vomiting #30 tabs mupirocin 2 % topical ointment 1 applic topical TID #15 grams 07/09/23 Allergies Allergy/AdvReac Type Severity Reaction Status Date / Time cyclobenzaprine (From Allergy Intermediate Hives Verified 11/26/24 18:30 Flexeril) cephalexin (Cephalexin) AdvReac Severe Abdominal Verified 11/26/24 18:30 Cramps sugammadex AdvReac Severe Other (See Verified 11/26/24 18:30 Comment) vancomycin AdvReac Severe diarrhea, Verified 11/26/24 18:30 redness acetaminophen AdvReac Intermediate Other (See Verified 11/26/24 18:30 Comment) Cephalosporins AdvReac Intermediate Diarrhea Verified 11/26/24 18:30 codeine phosphate (From AdvReac Intermediate Vomiting Verified 11/26/24 18:30 Tylenol-Codeine #3) ketorolac (From Toradol) AdvReac Intermediate Nausea Verified 11/26/24 18:30 silver (From Tegaderm AG AdvReac Intermediate Skin Rash Verified 11/26/24 18:30 Mesh) sulfamethoxazole (From AdvReac Intermediate Skin Rash Verified 11/26/24 18:30 Bactrim) tramadol AdvReac Intermediate Diarrhea Verified 11/26/24 18:30 trimethoprim (From Bactrim) AdvReac Intermediate Skin Rash Verified 11/26/24 18:30 General Stated Complaint: Laceration HALINA: 4 Exam Narrative Exam Narrative: Superficial skin flap noted to distal tip of left thumb neurovascularly intact Course Vital Signs Vital signs: Vital Signs Temperature 36.7 C 11/26/24 18:27 Pulse 82 11/26/24 18:27 Respiratory Rate 16 11/26/24 18:27 Blood Pressure 143/84 H 11/26/24 18:27 Pulse Oximetry 98 11/26/24 18:27 Temperature 36.7 C 11/26/24 18:27 Temperature Source Oral 11/26/24 18:27 Pulse 82 11/26/24 18:27 Respiratory Rate 16 11/26/24 18:27 Blood Pressure 143/84 H 11/26/24 18:27 Blood Pressure Position Sitting 11/26/24 18:27 Pulse Oximetry 98 11/26/24 18:27 Oxygen Delivery Method Room Air 11/26/24 18:27 Oxygen Flow Rate 0 11/26/24 18:27 Procedure Laceration Laceration 1: Date of Procedure: 11/26/24 Time of procedure: 21:09 Provider that performed the procedure: Lesvia Fry Time Out Performed: No Patient Consented: Verbally Site: other Side (If applicable): left Description: flap Depth: simple, single layer Local anesthetic: Lidocaine 1% Amount of anesthesia used (mL): 1 Pre-repair:: wound explored Skin layer closed with: nylon Suture size: 5-0 Number of sutures:: 1 Medical Decision Making This 39-year-old female presents with accidental injury to left thumb with laceration. Laceration is approximately 5 mm. A single suture was placed and dressing was applied. Suture removal in 7 to 10 days return precautions reviewed and patient expressed understanding Quality:SDOH Health Related Social Needs: Health related social needs details no reported problems. [facility] All Active Problems (Updated 11/26/24 @ 19:42 by REESE Carbajal) Laceration of thumb (Acute) Breast pain, left (Acute) Unspecified open wound of left breast, initial encounter (Acute) Diarrhea (Acute) Palpable mass of soft tissue of knee (Acute) Low HDL (under 40) (Acute) Obesity without serious comorbidity (Acute) Hidradenitis suppurativa (Acute) bilateral, managed [place] [facility] [place]. Pending Humira start. [facility] [place] clinic [place]. Bilateral ovarian cysts (Chronic) seen on multiple imaging studies Loin pain hematuria syndrome (Acute) never officially diagnosed by director of informatics Lymphedema of left lower extremity (Chronic) Anxiety (Acute 02/11/13) panic Medical History Anesthesia complication Patient with severe bradycardia with sugammadex reversal requiring compressions History of tobacco abuse quit 01/2022 History of renal calculi Endometriosis, unspecified LAPROSCOPY 2009 hysterect 2020 on OC for control Hepatomegaly Vitamin D deficiency Anemia Hepatic steatosis Surgical History S/P laparoscopic appendectomy S/P laparoscopy (2009) stage 1 endometriosis S/P laparoscopic assisted vaginal hysterectomy (LAVH) ovaries intact Hx of hand surgery L hand, pt. reports nerves were fixed Status post endovenous radiofrequency ablation (RFA) of saphenous vein for venous insufficiency 09/06/2018 wisdom teeth extraction Extracorporeal shock wave lithotripsy EGD - MAC Family History Mother Diabetes Heart disease Hyperlipidemia Father Colon cancer Heart disease Hyperlipidemia Sister Hyperlipidemia Grandfather Diabetes Grandfather Diabetes Hyperlipidemia Asthma Grandmother Diabetes Personal history of malignant neoplasm Breast Heart disease Hyperlipidemia Grandmother No problems noted. 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 Pets and animals: Yes Pets and animals: dog(s) Sexually active: Yes Do you think of yourself as: straight/heterosexual Current gender identity: female What is your relationship status?: never How often do you talk on the phone with friends or family?: three or more times per week How often do you get together with friends or relatives?: once per week How often do you attend jewish or buddhism services?: 1-3 times per year Do you belong to any clubs or organized social groups?: no Panel score (0-1 are the most socially isolated patients): 1 What type of physical activity do you participate in: other Duration: > 90 minutes/day Frequency: 5-6 times per week Melida/Baptist: None Do you feel safe at home: Yes Do you feel safe in your relationship?: Yes
== END 2024-11-26 19:49 | disposition home or self-care (01) ==
PROVIDERS: Emergency Provider Physician Assistant; PCP Nurse Practitioner Family
DX: S61.012A Laceration without foreign body of left thumb without damage to nail, initial encounter (principal); X58.XXXA Exposure to other specified factors, initial encounter
CPT/HCPCS: 12001